=== PATIENT | female | born 1950 | race Hispanic/Latino ===

== ENCOUNTER 2018-03-19 19:15 | Inpatient (IN) | payer OTHER ==
--- OUTSIDE RECORDS SUMMARY | 2018-03-19 19:17 | XMS REPORT ---
:1950 Author Organization e[employer]Works Care Team Providers Name Role Phone Pacheco, Na Provider Role Unavailable Allergies, Adverse Reactions, Alerts Substance Reaction Event Type N.K.D.A. 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 Active with diabetes mellitus due to underlying condition Problem Coronary artery disease I25.9 Active Problem Microcytic anemia D50.9 Active Problem Hypertension I10 Active Assessment Acquired hypothyroidism E03.9 Active Problem Obesity E66.9 Active Problem Hyperlipidemia E78.5 Active Problem Acquired hypothyroidism E03.9 Active Problem Other chronic pain G89.29 Active Problem GERD (gastroesophageal reflux K21.9 Active disease) Problem Low back pain M54.5 Active Assessment Controlled type 2 diabetes mellitus E11.9 Active without complication, without long-term current use of insulin Assessment Coronary artery disease I25.9 Active Assessment Other chronic pain G89.29 Active Assessment Low back pain M54.5 Active Assessment Hyperlipidemia E78.5 Active Assessment Hypertension I10 Active Assessment 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 Active with type 2 diabetes mellitus Problem Controlled type 2 diabetes mellitus E11.9 Active without complication, without long-term current use of insulin Assessment Microcytic anemia D50.9 Active Problem 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 Active with type 2 diabetes mellitus Medications Medication Code Code Instructions Start End Status Dosage System Date Date Lipitor ND 41455470228 40 MG Orally Active 1 tablet Once a day Metoprolol ND 95864502131 100 MG Orally Active 1 tablet Succinate ER Once a day Lyrica ND 07301129119 50 MG Orally Active 1 capsule Twice a day Metformin HCl ND 61537462903 500 MG Orally Active 1 tablet Twice a day with meals Synthroid ND 04714656636 112 MCG Orally December Active 1 tablet on Once a day 2017 an empty stomach in the morning Nexium ND 42229853154 40 MG Active TAKE ONE CAPSULE BY MOUTH EVERY DAY Losartan ND 39445968677 50 MG Orally December Active 1 tablet Potassium Once a day 2017 Aspir-81 [facility] 67966966198 81 MG Orally Active 1 tablet Once a day Prasugrel HCl [facility] 30111872796 10 MG Orally December Active as directed 2017 Results Name Result Date Reference Range Unit Abnormality Flag LUF- XR LUMBAR SPINE (AP/LATERAL) Summary Purpose eClinicalWorks Submission
[2018-03-19] MEDS ORDERED: NA CHLORIDE 0.9% 1,000 ML ONE (20:48)
[2018-03-19 21:00] LABS: Absolute Lymphocytes (CBC) 1.5 K/uL (0.7-4.9); Absolute Monocytes 0.3 K/uL (0.1-1.3); Absolute Neutrophil 3.1 K/uL (1.8-8.0); Basophils % 0.4 % (0-1.3); Eosinophils % 1.5 % (0-4.4); Hematocrit 23.6 % (36.0-45.0); Lymphocytes % 29.4 % (15.3-44.8); MCH 22.4 pg (27.0-35.0); MCV 72.6 fL (80-100); MPV 8.4 fL (7.6-11.3); Monocytes % 6.9 % (3.3-12.3); RBC Red Blood Cell Count 3.25 M/uL (3.86-4.86)
[2018-03-19 21:10] LABS: BUN Blood Urea Nitrogen 15 mg/dL (6-20); Bicarbonate 32 mEq/L (21-31); Glucose Level 120 mg/dL (65-120); Potassium 3.7 mEq/L (3.6-5.0); Sodium Level 139 mEq/L (135-145)
--- NOTE | 2018-03-19 21:44 | ER ---
Nurse's Notes [facility] Name: Virginia Saucedo Age: 67 yrs Sex: Female : 1950 Arrival Date: 03/19/2018 Time: 19:44 Bed 19 Private MD: Diagnosis: Iron deficiency anemia secondary to blood loss (chronic) Presentation: 03/19 19:45 Presenting complaint: Patient states: Was instructed to come to ER to be evaluated for aj possible transfusion after HGB was 7.5 today. Reports 2 month history of black tarry stools. Transition of care: patient was not received from another setting of care. Onset of symptoms was January 2018. Risk Assessment: Do you want to hurt yourself or someone else? Patient reports no desire to harm self or others. Care prior to arrival: None. 19:45 Method Of Arrival: Ambulatory aj 19:45 Acuity: ANUSHA 4 aj 20:14 Initial Sepsis Screen: Does the patient meet any 2 criteria? No. Patient's initial jd3 sepsis screen is negative. Does the patient have a suspected source of infection? No. Patient's initial sepsis screen is negative. Triage Assessment: 19:51 General: Appears in no apparent distress. comfortable, Behavior is calm, cooperative, aj appropriate for age. Pain: Denies pain. Neuro: Level of Consciousness is awake, alert, obeys commands, Oriented to person, place, time, situation, Appropriate for age. Respiratory: Airway is patent Respiratory effort is even, unlabored, Respiratory pattern is regular, symmetrical. GI: Reports bloody stool. Derm: Skin is intact, is healthy with good turgor, Skin is pink, warm \T\ dry. normal. Historical: - Allergies: 19:51 No Known Allergies; aj - Home Meds: 19:51 aspirin 81 mg Oral chew 1 tab once daily [Active]; atorvastatin 40 mg Oral tab 1 tab aj once daily [Active]; Celebrex 200 mg Oral cap 1 cap once daily [Active]; Cozaar 50 mg Oral tab 1 tab once daily [Active]; metformin 500 mg Oral tr24 2 tabs once daily [Active]; metoprolol tartrate 100 mg Oral tab 1 tab once daily [Active]; Nexium 40 mg Oral cpDR 1 cap once daily [Active]; Synthroid 112 mcg Oral tab 1 tab once daily [Active]; prasugrel oral oral [Active]; - PMHx: 19:51 Diabetes - NIDDM; GERD; High Cholesterol; Hypertension; THYROID CANCER; joint pain; aj - PSHx: 19:51 Cholecystectomy; ; Thyroidectomy; Heart stents; aj - Immunization history:: Adult Immunizations up to date. - Social history:: Smoking status: Patient/guardian denies using tobacco. - Ebola Screening: : Patient negative for fever greater than or equal to 101.5 degrees Fahrenheit, and additional compatible Ebola Virus Disease symptoms Patient denies exposure to infectious person Patient denies travel to an Ebola-affected area in the 21 days before illness onset No symptoms or risks identified at this time. Screenin:14 Abuse screen: Denies threats or abuse. Nutritional screening: No deficits noted. jd3 Tuberculosis screening: No symptoms or risk factors identified. Fall Risk No fall in past 12 months (0 pts). Gait- Normal/Bed Rest/Wheelchair (0 pts) Mental Status- Oriented to own ability (0 pts). Total Machado Fall Scale indicates No Risk (0-24 pts). Assessment: 20:10 General: Appears in no apparent distress. comfortable, Behavior is calm, cooperative, jd3 appropriate for age. Pain: Complains of pain in left upper quadrant Pain currently is 2 out of 10 on a pain scale. Quality of pain is described as tender, Is continuous, chronic. Neuro: Level of Consciousness is awake, alert, obeys commands, Oriented to person, place, time, situation. Cardiovascular: Heart tones S1 S2 present Capillary refill < 3 seconds Patient's skin is warm and dry. Respiratory: Airway is patent Respiratory effort is even, unlabored, Respiratory pattern is regular, symmetrical, Breath sounds are clear bilaterally. GI: Abdomen is round Bowel sounds present X 4 quads. Abd is soft X 4 quads Abd is non tender in right upper quadrant, right lower quadrant and left lower quadrant Abdomen is tender to palpation in left upper quadrant Reports constipation, dark black, sticky stools. : No signs and/or symptoms were reported regarding the genitourinary system. EENT: No signs and/or symptoms were reported regarding the EENT system. Derm: Skin is intact, Skin is dry, Skin is normal, Skin temperature is warm. Musculoskeletal: Circulation, motion, and sensation intact. Range of motion: intact in all extremities. 20:57 Reassessment: Patient appears in no apparent distress at this time. No changes from jd3 previously documented assessment. Patient and/or family updated on plan of care and expected duration. Pain level reassessed. Patient is alert, oriented x 3, equal unlabored respirations, skin warm/dry/pink. 22:39 Reassessment: Patient appears in no apparent distress at this time. Patient and/or jd3 family updated on plan of care and expected duration. Pain level reassessed. Patient is alert, oriented x 3, equal unlabored respirations, skin warm/dry/pink. 23:30 Reassessment: Patient appears in no apparent distress at this time. Patient and/or jd3 family updated on plan of care and expected duration. Pain level reassessed. Patient is alert, oriented x 3, equal unlabored respirations, skin warm/dry/pink. 03/20 00:09 Reassessment: Patient appears in no apparent distress at this time. Patient and/or jd3 family updated on plan of care and expected duration. Pain level reassessed. Patient is alert, oriented x 3, equal unlabored respirations, skin warm/dry/pink. pt reported understanding of need for admission. Vital Signs: 03/19 19:51 BP 134 / 80; Pulse 107; Resp 20; Temp 97.6; Pulse Ox 99% on R/A; Weight 81.65 kg; aj Height 5 ft. 0 in. (152.40 cm); 20:15 BP 116 / 72; Pulse 95; Resp 17 S; Pulse Ox 99% on R/A; Pain 2/10; jd3 20:56 BP 109 / 57; Pulse 96; Resp 18 S; Pulse Ox 98% on R/A; jd3 22:38 BP 118 / 72; Pulse 88; Resp 16 S; Pulse Ox 97% on R/A; jd3 03/20 00:09 BP 107 / 61; Pulse 89; Resp 16 S; Pulse Ox 97% on R/A; Pain 0/10; jd3 03/19 19:51 Body Mass Index 35.15 (81.65 kg, 152.40 cm) aj ED Course: 03/19 19:44 Patient arrived in ED. aj 19:50 Triage completed. aj 19:51 Arm band placed on left wrist. Patient placed in waiting room, Patient notified of wait aj time. 20:02 Edilson Vela, RN is Primary Nurse. jd3 20:10 Tito Hewitt MD is Attending Physician. 20:13 Patient has correct armband on for positive identification. Placed in gown. Bed in low jd3 position. Call light in reach. Side rails up X2. Adult w/ patient. 20:25 Missed attempt(s): 22 gauge in left forearm. Bleeding controlled, band aid applied, jd3 catheter tip intact. 20:35 Inserted saline lock: 22 gauge in right antecubital area, using aseptic technique. jd3 Blood collected. 21:43 Bakari Duong MD is Hospitalizing Provider. 03/20 00:03 No provider procedures requiring assistance completed. Patient admitted, IV remains in jd3 place. Administered Medications: 03/19 20:51 Drug: NS 0.9% 1000 ml Route: IV; Rate: 125 ml/hr; Site: right antecubital; jd3 03/20 00:10 Follow up: Response: No adverse reaction; IV Status: Infusion continued upon admission jd3 Outcome: 03/19 21:43 Decision to Hospitalize by Provider. 03/20 00:03 Admitted to Tele accompanied by tech, room 412, with chart, Report called to Rosetta SANTANA jd3 Condition: stable Instructed on the need for admit, Demonstrated understanding of instructions. 00:11 Patient left the ED. jd3 Signatures: Meagan Mckeon RN RN aj Starr, Gregory, MD MD Edilson Vela RN RN jd3 Corrections: (The following items were deleted from the chart) 03/19 20:16 20:10 Pain: Complains of pain in left upper quadrant Pain currently is 3 out of 10 on a jd3 pain scale. Quality of pain is described as tender, Is continuous, chronic, jd3
--- NOTE | 2018-03-19 21:44 | EDPHYS ---
Physician Documentation [facility] Name: Virginia Saucedo Age: 67 yrs Sex: Female : 1950 Arrival Date: 03/19/2018 Time: 19:44 Bed 19 Private MD: ED Physician Tito Hewitt HPI: 03/19 21:33 This 67 yrs old Female presents to ER via Ambulatory with complaints of Low gs HGB. 21:33 The patient presents to the emergency department with rectal bleeding, melena. Onset: gs The symptoms/episode began/occurred 2 week(s) ago. Abdominal pain: none is appreciated. Modifying factors: The symptoms are alleviated by nothing, the symptoms are aggravated by nothing. Associated signs and symptoms: Pertinent positives: dizziness when standing, Pertinent negatives: constipation. Severity of symptoms: At their worst the symptoms were moderate in the emergency department the symptoms are unchanged. The patient has not experienced similar symptoms in the past. The patient has been recently seen by a physician: Dr. ruvalcaba today. Historical: - Allergies: 19:51 No Known Allergies; aj - Home Meds: 19:51 aspirin 81 mg Oral chew 1 tab once daily [Active]; atorvastatin 40 mg Oral tab 1 tab aj once daily [Active]; Celebrex 200 mg Oral cap 1 cap once daily [Active]; Cozaar 50 mg Oral tab 1 tab once daily [Active]; metformin 500 mg Oral tr24 2 tabs once daily [Active]; metoprolol tartrate 100 mg Oral tab 1 tab once daily [Active]; Nexium 40 mg Oral cpDR 1 cap once daily [Active]; Synthroid 112 mcg Oral tab 1 tab once daily [Active]; prasugrel oral oral [Active]; - PMHx: 19:51 Diabetes - NIDDM; GERD; High Cholesterol; Hypertension; THYROID CANCER; joint pain; aj - PSHx: 19:51 Cholecystectomy; ; Thyroidectomy; Heart stents; aj - Immunization history:: Adult Immunizations up to date. - Social history:: Smoking status: Patient/guardian denies using tobacco. - Ebola Screening: : Patient negative for fever greater than or equal to 101.5 degrees Fahrenheit, and additional compatible Ebola Virus Disease symptoms Patient denies exposure to infectious person Patient denies travel to an Ebola-affected area in the 21 days before illness onset No symptoms or risks identified at this time. ROS: 21:39 All other systems are negative. gs Exam: 21:39 Head/Face: Normocephalic, atraumatic. Eyes: Pupils equal round and reactive to light, gs extra-ocular motions intact. Lids and lashes normal. Conjunctiva and sclera are non-icteric and not injected. Cornea within normal limits. Periorbital areas with no swelling, redness, or edema. ENT: Nares patent. No nasal discharge, no septal abnormalities noted. Tympanic membranes are normal and external auditory canals are clear. Oropharynx with no redness, swelling, or masses, exudates, or evidence of obstruction, uvula midline. Mucous membranes moist. Neck: Trachea midline, no thyromegaly or masses palpated, and no cervical lymphadenopathy. Supple, full range of motion without nuchal rigidity, or vertebral point tenderness. No Meningismus. Chest/axilla: Normal chest wall appearance and motion. Nontender with no deformity. No lesions are appreciated. Cardiovascular: Regular rate and rhythm with a normal S1 and S2. No gallops, murmurs, or rubs. Normal PMI, no JVD. No pulse deficits. Respiratory: Lungs have equal breath sounds bilaterally, clear to auscultation and percussion. No rales, rhonchi or wheezes noted. No increased work of breathing, no retractions or nasal flaring. Back: No spinal tenderness. No costovertebral tenderness. Full range of motion. Skin: Warm, dry with normal turgor. Normal color with no rashes, no lesions, and no evidence of cellulitis. MS/ Extremity: Pulses equal, no cyanosis. Neurovascular intact. Full, normal range of motion. Neuro: Awake and alert, GCS 15, oriented to person, place, time, and situation. Cranial nerves II-XII grossly intact. Motor strength 5/5 in all extremities. Sensory grossly intact. Cerebellar exam normal. Normal gait. 21:39 Constitutional: The patient appears alert, awake. 21:39 Abdomen/GI: Palpation: abdomen is soft and non-tender, Rectal exam: Stool: brown, guaiac positive, the exam is chaperoned by an business services tech. Vital Signs: 19:51 BP 134 / 80; Pulse 107; Resp 20; Temp 97.6; Pulse Ox 99% on R/A; Weight 81.65 kg; aj Height 5 ft. 0 in. (152.40 cm); 20:15 BP 116 / 72; Pulse 95; Resp 17 S; Pulse Ox 99% on R/A; Pain 2/10; jd3 20:56 BP 109 / 57; Pulse 96; Resp 18 S; Pulse Ox 98% on R/A; jd3 22:38 BP 118 / 72; Pulse 88; Resp 16 S; Pulse Ox 97% on R/A; jd3 03/20 00:09 BP 107 / 61; Pulse 89; Resp 16 S; Pulse Ox 97% on R/A; Pain 0/10; jd3 03/19 19:51 Body Mass Index 35.15 (81.65 kg, 152.40 cm) aj MDM: 03/19 20:18 Patient medically screened. 21:39 Differential diagnosis: gastritis, hemorrhoids, pud. Data reviewed: vital signs, nurses notes. Response to treatment: the patient's symptoms have mildly improved after treatment, and as a result, I will admit patient. 03/19 20:13 Order name: Type And Screen 03/19 20:13 Order name: CBC with Diff 03/19 20:13 Order name: Basic Metabolic Panel 03/19 21:51 Order name: ABO/RH no charge EDWV 03/19 20:15 Order name: IV Saline Lock; Complete Time: 20:51 [facility] 03/19 22:18 Order name: CONS Physician Consult EDMS Administered Medications: 20:51 Drug: NS 0.9% 1000 ml Route: IV; Rate: 125 ml/hr; Site: right antecubital; j 03/20 00:10 Follow up: Response: No adverse reaction; IV Status: Infusion continued upon admission j Disposition: 03/19/18 21:43 Hospitalization ordered by Bakari Duong for Inpatient Admission. Preliminary diagnosis is Iron deficiency anemia secondary to blood loss (chronic). - Bed requested for Telemetry/MedSurg (Inpatient). - Status is Inpatient Admission. jd3 - Condition is Stable. - Problem is new. - Symptoms have improved. UTI on Admission? No Signatures: Dispatcher [employer] EDMS Cintia Saleh RN RN kl Myers, Amanda, RN RN aj Starr, Gregory, MD MD gs Davies, Jonathon, RN RN j Corrections: (The following items were deleted from the chart) 03/19 20:26 20:23 Protime (+INR) ordered. EDWV EDMS 23:34 21:43 Hospitalization Ordered by Bakari Duong MD for Inpatient Admission. Preliminary kl diagnosis is Iron deficiency anemia secondary to blood loss (chronic). Bed requested for Telemetry/MedSurg (Inpatient). Status is Inpatient Admission. Condition is Stable. Problem is new. Symptoms have improved. UTI on Admission? No. gs 03/20 00:11 03/19 23:34 03/19/2018 21:43 Hospitalization Ordered by Bakari Duong MD for Inpatient jd3 Admission. Preliminary diagnosis is Iron deficiency anemia secondary to blood loss (chronic). Bed requested for Telemetry/MedSurg (Inpatient). Status is Inpatient Admission. Condition is Stable. Problem is new. Symptoms have improved. UTI on Admission? No. kl
[2018-03-19] MEDS ORDERED: ACETAMINOPHEN 500 MG TAB PO PRN (23:15)
[2018-03-19] MEDS ORDERED: Morphine 2 MG/2 ML SYR IV PRN (23:31)
[2018-03-19] MEDS: PANTOPRAZOLE INJ 80 MG in NA CHLORIDE 0.9% 250 ML IV SCH (23:45)
[2018-03-19] MEDS ORDERED: NA CHLORIDE 0.9% 1,000 ML IV SCH (23:45)
[2018-03-20 01:06] LABS: Hematocrit 22.2 % (36.0-45.0)
[2018-03-20] MEDS ORDERED: NA CHLORIDE 0.9% 250 ML ONE ×2 (01:19→10:20)
[2018-03-20] MEDS ORDERED: PANTOPRAZOLE 40 MG INJ ONE (01:19)
[2018-03-20] MEDS: NA CHLORIDE 0.9% 250 ML IV SCH ×2 (02:31→18:24)
[2018-03-20 02:51] VITALS: BMI 35.6
[2018-03-20] MEDS: METOPROLOL XL 50 MG TAB PO SCH ×2 (06:00→18:24)
[2018-03-20] MEDS: LEVOTHYROXINE SOD 0.112 MG TAB PO SCH (06:00)
--- NOTE | 2018-03-20 07:14 | P.HP ---
Certification for Inpatient Patient admitted to: Inpatient With expected LOS: >2 Midnights Patient will require the following post-hospital care: None Practitioner: I am a practitioner with admitting privileges, knowledge of patient current condition, hospital course, and medical plan of care. Services: Services provided to patient in accordance with Admission requirements found in Title 42 Section 412.3 of the Code of Federal Regulations Patient History Date of Service: 03/19/18 Reason for admission: GI bleeding History of Present Illness: Patient is a 67-year-old female who came into the hospital with epigastric tenderness and generalized weakness. Patient also has been fatigued and short of breath. Patient was recently diagnosed with acute Coronary Syndrome and had a stent placed. Patient was discharged on effient a few months ago. Patient had been doing well up until a few days ago when she noted she was feeling weak and tired. She was more short of breath than normal. Patient did have some nausea and vomiting and had a episode of coffee-ground emesis. Pain has also has some dark stools but does not describe them as black or tarry. 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 However, on the effient it was concerned that patient would not be able to stop it as she recently had a stent placed. During her appointment patient had labs ordered which revealed her low hemoglobin. Patient was admitted to the hospital and plan is to recheck a H&H after hydration. Patient may need a blood transfusion. Will get GI to see the patient as well. Continue on a Protonix drip as patient has some coffee-ground emesis. Allergies No Known Allergies Allergy (Verified 03/20/18 03:13) Home Medications: Aspirin Chewable [Aspirin Chewable*] 81 mg PO DAILY 03/20/18 Atorvastatin Calcium [Lipitor] 40 mg PO BEDTIME 03/20/18 Esomeprazole Mag Trihydrate [Nexium] 40 mg PO DAILY 03/20/18 Levothyroxine [Synthroid] 112 mcg PO [id number] 03/20/18 Losartan Potassium [Cozaar] 50 mg PO DAILY 03/20/18 Metformin HCl [Glucophage] 500 mg PO BID 03/20/18 Metoprolol Succinate [Toprol Xl] 100 mg PO BID 03/20/18 Prasugrel Hydrochloride [Effient] 10 mg PO DAILY 03/20/18 - Past Medical/Surgical History Has patient received pneumonia vaccine in the past: Yes Diabetic: Yes -: HTN -: DM -: THYROID CA -: GERD -: HLD -: csection -: thyroidectomy -: cholecystectomy - Family History Father Medical History: Hypertension Mother Medical History: Hypertension Brother Medical History: Hypertension - Social History Smoking Status: Former smoker Alcohol use: No CD- Drugs: No Caffeine use: Yes Place of Residence: Home Review of Systems 10-point ROS is otherwise unremarkable Physical Examination - Vital Signs Temperature: 98.3 F Blood Pressure: 113/67 Pulse: 96 Respirations: 18 Pulse Ox (%): 100 - Physical Exam General: Alert, In no apparent distress, Oriented x3 HEENT: Atraumatic, PERRLA, Mucous membr. moist/pink, EOMI, Sclerae nonicteric Neck: Supple, 2+ carotid pulse no bruit, No LAD, Without JVD or thyroid abnormality Respiratory: Clear to auscultation bilaterally, Normal air movement Cardiovascular: Regular rate/rhythm, Normal S1 S2, No murmurs Gastrointestinal: Normal bowel sounds, Soft and benign, Non-distended, No tenderness, No rebound, No guarding Musculoskeletal: No clubbing, No swelling, No tenderness Integumentary: No rashes Neurological: Normal gait, Normal speech, Normal strength at 5/5 x4 extr, Normal tone, Normal affect Lymphatics: No axilla or inguinal lymphadenopathy - Studies Laboratory Data (last 24 hrs) 03/19/18 20:35: Sodium 139, Potassium 3.7, BUN 15, Creatinine 0.33 L, Glucose 120 03/19/18 20:35: WBC 5.0, Hgb 7.3 L*, Hct 23.6 L, Plt Count 267 03/19/18 20:22: PT Cancelled, INR Cancelled Assessment & Plan - Problems (Diagnosis) (1) Presence of stent in coronary artery in patient with coronary artery disease Current Visit: Yes Status: Acute (2) Gastritis Current Visit: Yes Status: Acute (3) CAD (coronary artery disease) Onset Date: 09/20/17 Current Visit: No Status: Chronic Qualifiers: - Plan Plan: 1. Continue with IV hydration and PPI drip 2. Continue with IV antibiotics 3. Continue with pain control 4. NPO 5. GI consultation 6. Serial H&H, and we will monitor LFTs and lipase along with electrolytes. 7. GI and DVT prophylaxis Discharge Plan: Home Plan to discharge in: 24 Hours - Advance Directives Does patient have a Living Will: Yes Does patient have a Durable POA for Healthcare: Yes - Code Status/Comfort Care Code Status Assessed: Yes Code Status: Full Code Critical Care: No Time Spent Managing PTS Care (In Minutes): 50
[2018-03-20 08:06] LABS: Absolute Lymphocytes (CBC) 1.1 K/uL (0.7-4.9); Absolute Monocytes 0.3 K/uL (0.1-1.3); Absolute Neutrophil 2.9 K/uL (1.8-8.0); Basophils % 0.5 % (0-1.3); Eosinophils % 1.6 % (0-4.4); Hematocrit 24.9 % (36.0-45.0); Lymphocytes % 24.7 % (15.3-44.8); MCH 23.7 pg (27.0-35.0); MCV 74.2 fL (80-100); MPV 8.2 fL (7.6-11.3); Monocytes % 6.5 % (3.3-12.3); RBC Red Blood Cell Count 3.36 M/uL (3.86-4.86)
[2018-03-20 08:25] LABS: Protime INR 1.03
[2018-03-20] MEDS: PREGABALIN 50 MG CAP PO SCH (08:28)
[2018-03-20 09:21] LABS: BUN Blood Urea Nitrogen 14 mg/dL (6-20); Bicarbonate 30 mEq/L (21-31); Glucose Level 100 mg/dL (65-120); Potassium 3.8 mEq/L (3.6-5.0); Sodium Level 141 mEq/L (135-145)
[2018-03-20] MEDS: PANTOPRAZOLE INJ 80 MG in NA CHLORIDE 0.9% 250 ML IV SCH ×2 (09:45→20:43)
--- NOTE | 2018-03-20 12:19 | CON ---
History Of Present Illness: Ms. Saucedo for about a month has been noticing her stools turned to darker color. She has been on Nexium chronically. She has also been on aspirin and Plavix. In the fall of 2016, she had an LAD stent. Aspirin and Effient have been stopped, but her last dose was just yesterday. She is aware there was blood in her stools, went to see Dr. Mensah, ended up in our emergency room. Her hemoglobin was 7.3. It got as low as 6.7 this morning and following transfusion, it is back up to 8. Ms. Saucedo has a history of coronary heart disease, hypertension, dyslipidemia, [id number] diabetes. She has had several stents with the last one was in September 2017. Allergies: SHE REPORTS NO ALLERGIES. Social History: She uses no tobacco or alcohol. Physical Examination: General: She is alert, oriented, pleasant, not in distress. Vital Signs: Blood pressure 113/67, pulse 96, temperature 98.3, O2 saturation 100. Impression: The patient is now 6 months out from a drug-eluting stent. She can stop the Effient and aspirin safely, have transfusions and have procedures to see what the bleeding source is. It is very alarming if she has bleeding from stomach or duodenum while she is on Nexium. She has had colonoscopies, but the last one was a year and a half ago. So, she will probably need a complete upper and lower GI workup to see the source, but the source is somewhere in the GI tract. No other apparent source of bleeding. She does not seem to have bone marrow failure, but this is blood loss from GI bleeding. We can safely stop the dual antiplatelet therapy while the GI workup continues. DELORIS Voice ID: [id number] Report ID: [id number] HILARIO
--- NOTE | 2018-03-20 14:08 | P.PN ---
Subjective Date of Service: 03/20/18 Chief Complaint: GI bleeding She is patient seen and examined at bedside with RN. Chart reviewed. Discussed with GI and cardiology at this time. Patient is getting transfused 2 units of packed RBC. Currently states that she feels much better than before however is getting anxious laying in bed for a long time. No other complaints to offer. Review of Systems General: As per HPI Physical Examination - Vital Signs Temperature: 98.3 F Blood Pressure: 113/67 Pulse: 96 Respirations: 18 Pulse Ox (%): 100 - Physical Exam General: Alert, In no apparent distress HEENT: Atraumatic, PERRLA, EOMI Neck: Supple, JVD not distended Respiratory: Clear to auscultation bilaterally, Normal air movement Cardiovascular: Regular rate/rhythm, Normal S1 S2 Gastrointestinal: Normal bowel sounds, No tenderness Musculoskeletal: No tenderness Integumentary: No rashes Neurological: Normal speech, Normal tone, Normal affect Lymphatics: No axilla or inguinal lymphadenopathy - Studies Laboratory Data (last 24 hrs) 03/19/18 20:35: Sodium 139, Potassium 3.7, BUN 15, Creatinine 0.33 L, Glucose 120 03/19/18 20:35: WBC 5.0, Hgb 7.3 L*, Hct 23.6 L, Plt Count 267 03/19/18 20:22: PT Cancelled, INR Cancelled Medications List Reviewed: Yes Assessment & Plan - Problems (Diagnosis) (1) GI (gastrointestinal bleed) Current Visit: No Status: Acute Plan: Acute GI bleed with Hgb of 6.8 -S/p transfusion of 2 units. -GI consulted. Awaiting Reccs -Stop Effient and ASA due to GI bleed -IV fluids and H/h q6h -Possible EGD or Colonoscopy during this hospital visit Qualifiers: GI bleed type/associated pathology: melena Qualified Code(s): K92.1 - Melena (2) CAD (coronary artery disease) Onset Date: 09/20/17 Current Visit: No Status: Chronic Plan: CAD with Stent Placement 6 months ago -Cardiology consulted. -Stop Effient and ASA for now Qualifiers: Coronary Disease-Associated Artery/Lesion type: [place] artery [place] vs. transplanted heart: [place] heart Associated angina: with stable angina Qualified Code(s): I25.118 - Atherosclerotic heart disease of [place] coronary artery with other forms of angina pectoris Discharge Plan: Home Plan to discharge in: 48 Hours - Code Status/Comfort Care Code Status Assessed: Yes Critical Care: No
[2018-03-20] MEDS ORDERED: ATORVASTATIN 40 MG TAB PO SCH (21:00)
[2018-03-21] MEDS: PANTOPRAZOLE INJ 80 MG in NA CHLORIDE 0.9% 250 ML IV SCH (05:45)
[2018-03-21] MEDS: LEVOTHYROXINE SOD 0.112 MG TAB PO SCH (05:47)
[2018-03-21] MEDS: METOPROLOL XL 50 MG TAB PO SCH (05:47)
[2018-03-21] MEDS: PREGABALIN 50 MG CAP PO SCH (09:00)
[2018-03-21] MEDS ORDERED: SIMETHICONE 40 MG/ 0.6 ML ONE (09:09)
[2018-03-21] MEDS ORDERED: NA CHLORIDE 0.9% 1,000 ML ONE (09:10)
[2018-03-21] MEDS ORDERED: LIDOCAINE 1% MPF 5 ML VIAL ONE (09:28)
[2018-03-21] MEDS ORDERED: PROPOFOL 200 MG/20 ML VIAL IV ONE (09:28)
[2018-03-21] MEDS ORDERED: PANTOPRAZOLE 40MG TABLET PO SCH (10:39)
--- NOTE | 2018-03-21 11:58 | OP ---
Surgeon: Adarsh Garcia MD Procedure: Esophagogastroduodenoscopy. Indication For Procedure: Suspected upper GI bleed, anemia. For full details, please refer to my co nsultation from yesterday. Plan For Anesthesia: Monitored anesthesia care. Complexity: Average. Technique: After obtaining informed consent from the patient explaining risks and complications whic h include, but are not limited to bleeding, infection, perforation, and anesthesia complication, the patient was placed in the left lateral position and sedation was given. From then on, the scope was advanced into the mouth and carefully guided up till the fourth portion of the duodenum. There was n o evidence of active bleeding seen; however, some small AVMs were treated. After the completion of e xamination, the scope and equipment were withdrawn and procedure terminated in a safe manner. Findings: Esophagus: No gross lesion seen in the entire esophagus. Stomach: Mild patchy erythema seen in the body and antrum. Biopsies taken. Duodenum: The bulb appeared normal; however, there were 2 very small nonbleeding angiodysplasias see n in the second portion. These were ablated with APC. The second and fourth portion appeared normal . Small bowel biopsies were taken to rule out celiac disease. Complications: None. Tolerance Of Anesthesia: Excellent. Postoperative Diagnosis: Gastritis, small duodenal AVMs. Plan: 1.Await pathology results. 2.Oral PPI daily. 3.Follow up in the GI Clinic. 4.Can resume Plavix for now. As per Dr. Coon, the patient is okay to hold Plavix for a longer dur ation if colonoscopy is needed. Therefore, we can hold that 5 days before the procedure when we sche dule a colonoscopy in the next couple of weeks. She will come back and see us in the clinic. US/MODL Voice ID: [id number] Report ID: [id number]
--- NOTE | 2018-03-21 15:53 | P.DS ---
Admission Date: 03/19/18 Discharge Date: 03/21/18 Disposition: ROUTINE DISCHARGE Discharge Condition: GOOD Reason for Admission: GI bleeding Brief History of Present Illness: By Dr Duong Patient is a 67-year-old female who came into the hospital with epigastric tenderness and generalized weakness. Patient also has been fatigued and short of breath. Patient was recently diagnosed with acute Coronary Syndrome and had a stent placed. Patient was discharged on effient a few months ago. Patient had been doing well up until a few days ago when she noted she was feeling weak and tired. She was more short of breath than normal. Patient did have some nausea and vomiting and had a episode of coffee-ground emesis. Pain has also has some dark stools but does not describe them as black or tarry. Patient went to see her kelp gatherer as she was due for a colonoscopy. However, on the effient it was concerned that patient would not be able to stop it as she recently had a stent placed. During her appointment patient had labs ordered which revealed her low hemoglobin. Patient was admitted to the hospital and plan is to recheck a H&H after hydration. Patient may need a blood transfusion. Will get GI to see the patient as well. Continue on a Protonix drip as patient has some coffee-ground emesis. Hospital Course: Ms Saucedo was admitted to the hospital due to anemia secondary to blood loss due to GIB. She was medicated with ASA and Prasugrel, due to CAD, with stent placement about 6 month ago. She has received 2 UNITS of PRBC's during her stay. The patient was tachycardic initially but HR decreased after blood transfusion. ASA and Prasugrel were held. Dr Garcia did an EGD today, he found gastritis and small duodenal AVMs. Further colonoscopy is pending. Dr Garcia has recommended to continue antiplatelet medication upon discharge, and he will hold them again 5 days prior colonoscopy. At this point the patient is clinically and hemodynamically stable to be discharged. Will resume PPI and the rest of her home medications. Vital Signs/Physical Exam: Temp Pulse Resp BP Pulse Ox 97.9 F 68 16 131/66 98 03/21/18 12:00 03/21/18 12:00 03/21/18 12:00 03/21/18 12:00 03/21/18 12:00 General: Alert, In no apparent distress HEENT: Atraumatic, PERRLA, EOMI Neck: Supple, JVD not distended Respiratory: Clear to auscultation bilaterally, Normal air movement Cardiovascular: Regular rate/rhythm, Normal S1 S2 Gastrointestinal: Normal bowel sounds, No tenderness Musculoskeletal: No tenderness Integumentary: No rashes Neurological: Normal speech, Normal tone, Normal affect Lymphatics: No axilla or inguinal lymphadenopathy Laboratory Data at Discharge: WBC 4.3 K/uL (4.3-10.9) 03/20/18 07:55 Hgb 9.5 g/dL (12.0-15.0) L 03/20/18 16:06 Hct 30.0 % (36.0-45.0) L D 03/20/18 16:06 Plt Count 242 K/uL (152-406) 03/20/18 07:55 PT 12.2 SECONDS (9.5-12.5) 03/20/18 07:55 INR 1.03 03/20/18 07:55 APTT 29.2 SECONDS (24.3-36.9) 03/20/18 07:55 Sodium 141 mEq/L (135-145) 03/20/18 07:55 Potassium 3.8 mEq/L (3.6-5.0) 03/20/18 07:55 BUN 14 mg/dL (6-20) 03/20/18 07:55 Creatinine < 0.30 mg/dL (0.44-1.00) L 03/20/18 07:55 Glucose 100 mg/dL (65-120) 03/20/18 07:55 Home Medications: Aspirin Chewable [Aspirin Chewable*] 81 mg PO DAILY 03/20/18 Atorvastatin Calcium [Lipitor] 40 mg PO BEDTIME 03/20/18 Esomeprazole Mag Trihydrate [Nexium] 40 mg PO DAILY 03/20/18 Levothyroxine [Synthroid*] 112 mcg PO [id number] 03/20/18 Losartan Potassium [Cozaar*] 50 mg PO DAILY 03/20/18 Metformin HCl [Glucophage] 500 mg PO BID 03/20/18 Metoprolol Succinate [Toprol Xl] 100 mg PO BID 03/20/18 Prasugrel Hydrochloride [Effient*] 10 mg PO DAILY 03/20/18 Diet: AHA Activity: Ad porfirio Followup: Adarsh Garcia MD [ACTIVE - CAN ADMIT] - 1 Week Time spent managing pt's care (in minutes): 40
[2018-03-21 16:24] VITALS: BP 101/56; TEMP 98.6
[2018-03-21 20:21] VITALS: O2SAT 98
== END 2018-03-21 16:53 | disposition home or self-care (01) | DRG 378 ==
LOC: ER 19:15 → ERHOLD 22:17 → 4TH 23:37
PROVIDERS: ADMIT Hospitalist; ATTEND Internal Medicine
PROC: 30233N1 Transfusion of Nonautologous Red Blood Cells into Peripheral Vein, Percutaneous Approach (ICD-10-PCS; 2018-03-20)
PROC: 0W3P8ZZ Control Bleeding in Gastrointestinal Tract, Via Natural or Artificial Opening Endoscopic (ICD-10-PCS; 2018-03-21)
PROC: 0DB68ZX Excision of Stomach, Via Natural or Artificial Opening Endoscopic, Diagnostic (ICD-10-PCS; principal; 2018-03-21 11:30)
DX: K92.1 Melena (principal); D62 Acute posthemorrhagic anemia; I10 Essential (primary) hypertension; E11.9 Type 2 diabetes mellitus without complications; I25.10 Atherosclerotic heart disease of native coronary artery without angina pectoris; K29.70 Gastritis, unspecified, without bleeding; Q27.33 Arteriovenous malformation of digestive system vessel; K31.819 Angiodysplasia of stomach and duodenum without bleeding; Z85.850 Personal history of malignant neoplasm of thyroid; Z95.5 Presence of coronary angioplasty implant and graft; Z87.891 Personal history of nicotine dependence
CPT/HCPCS: 36415; 80048; 85014; 85018; 85025; 85610; 85730; 86850; 86900; 86901; 88305; 88312; 96360; 96361; 99285; C9113; J7030; P9016

== ENCOUNTER 2019-11-05 08:38 | Day surgery (SDC) | payer OTHER ==
[2019-11-03 17:40] LABS: Absolute Lymphocytes (CBC) 1.5 K/uL (0.7-4.9); Basophils % 0.4 % (0-1.3); Lymphocytes % 26.4 % (15.3-44.8); MPV 8.6 fL (7.6-11.3)
[2019-11-03 17:43] LABS: Protime INR 1.04
[2019-11-03 17:51] LABS: BUN Blood Urea Nitrogen 14 mg/dL (7-18); Bicarbonate 36 mmol/L (21-32); Glucose Level 161 mg/dL (74-106); Potassium 3.7 mmol/L (3.5-5.1); Sodium Level 145 mmol/L (136-145)
--- NOTE | 2019-11-03 17:56 | RAD REPORT ---
EXAM DESCRIPTION: Chad Cruz And Rylan (2 Views)11/03/2019 5:48 pm CLINICAL HISTORY: Preop for coronary arterial catheterization COMPARISON: 2017 FINDINGS: The patient is in a relatively poor degree of inspiration The lungs appear clear of acute infiltrate. The heart is normal size IMPRESSION: No acute abnormalities displayed
--- OUTSIDE RECORDS SUMMARY | 2019-11-05 08:41 | XMS REPORT ---
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, acquired with hemorrhage Problem Sebaceous cyst L72.3 Active Problem Bilateral lower extremity edema R60.0 Active Problem Stented coronary artery Z95.5 Active Problem Iron deficiency anemia, unspecified D50.9 Active iron deficiency anemia type Problem ACS (acute coronary syndrome) I24.9 Active Problem 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
--- OUTSIDE RECORDS SUMMARY | 2019-11-05 08:41 | XMS REPORT ---
:1950 Author Organization [employer] Care Team Providers Name Role Phone Pacheco, Na Provider Role Unavailable Allergies No Known Allergies Problems Problem Type Condition Code Onset Dates Condition Status Problem Microcytic anemia D50.9 Active Problem Other chronic pain G89.29 Active Problem Coronary artery disease I25.9 Active Problem Crohn''s disease with complication, K50.919 Active unspecified gastrointestinal tract location Assessment Needs flu shot Z23 Active Problem AVM (arteriovenous malformation) of K31.811 Active [...] underlying condition Problem Hyperlipidemia E78.5 Active Medications Medication Code Code Instructions Start End Status Dosage System Date [facility] 47174285657 81 MG Orally Active 1 tablet Once a day Esomeprazole [facility] 60923118029 40 MG Active TAKE 1 Magnesium CAPSULE BY MOUTH EVERY DAY Losartan [facility] 08031830854 50 MG Orally Active 1 tablet Potassium Once a day Metoprolol [facility] 17711624431 100 MG Orally Active 1 tablet Succinate ER Once a day Furosemide [facility] 83661851009 40 MG Orally Active 1 tablet Once a day Metformin HCl [facility] 70450920387 500 MG Orally Active 1 tablet Twice a day with meals Nexium [facility] 48542448970 40 MG Active TAKE ONE CAPSULE BY MOUTH EVERY DAY Furosemide [facility] 36640754756 40 MG Orally Active 1 tablet Once a day Lipitor [facility] 64311179495 40 MG Orally Active 1 tablet Once a day Synthroid [facility] 32735543587 112 MCG Orally Active 1 tablet Once a day on an empty stomach in the morning Results No Known Results Immunizations Vaccine Administration Date FluAD Jul 10, 2019 Summary Purpose [employer] Submission
--- OUTSIDE RECORDS SUMMARY | 2019-11-05 08:41 | XMS REPORT ---
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, acquired with hemorrhage Problem Hyperlipidemia E78.5 Active Assessment Acquired hypothyroidism E03.9 Active Problem Microcytic anemia D50.9 Active Problem Other chronic pain G89.29 Active Problem Coronary artery disease I25.9 Active Problem Crohn''s disease with complication, K50.919 Active unspecified gastrointestinal tract location Problem 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
[2019-11-05] MEDS ORDERED: NA CHLORIDE 0.9% 500 ML ONE (08:50)
[2019-11-05] MEDS ORDERED: MIDAZOLAM HCL 2 MG/2 ML INJ ONE ×3 (11:40→12:54)
[2019-11-05] MEDS ORDERED: METOPROLOL TARTRATE 5 MG/5 ML INJ IV ONE ×2 (12:05→12:11)
[2019-11-05] MEDS ORDERED: FENTANYL CITR 100 MCG/2 ML ONE ×2 (12:55→13:00)
[2019-11-05] MEDS ORDERED: PRASUGREL (EFFIENT) 10 MG TAB ONE (12:58)
[2019-11-05] MEDS ORDERED: NA CHLORIDE 0.9% 50 ML ONE (12:59)
[2019-11-05] MEDS ORDERED: HEPARIN 5000 UNIT/ML 1 ML VIAL ONE (12:59)
[2019-11-05] MEDS ORDERED: NICARDIPINE HCL 25 MG/10 ML IV ONE (12:59)
[2019-11-05] MEDS ORDERED: HEPA 1000U/500MLS 2,000 UNIT/1,000 ML BAG IV ONE (13:05)
[2019-11-05] MEDS ORDERED: ONDANSETRON 4 MG/2 ML VIAL ONE (13:22)
--- NOTE | 2019-11-05 15:26 | EKG ---
Test Date: 2019-11-05 Test Time: 13:09:36 Coverer: DANIA MEASUREMENT RESULTS: Intervals: Rate: 74 OH: 164 QRSD: 96 QT: 402 QTc: 446 Butler: P: 35 OH: 164 QRS: 30 T: 3 INTERPRETIVE STATEMENTS: Normal sinus rhythm Nonspecific T wave abnormality Abnormal ECG Compared to ECG 09/17/2017 02:56:19 Sinus tachycardia no longer present Short OH interval no longer present T-wave abnormality still present Electronically Signed On 11-05-19 15:25:30 PROJECT ACCOUNT MANAGER by Aung Coon
[2019-11-05] MEDS: METOPROLOL XL 100 MG TAB PO SCH (18:00)
[2019-11-05 18:02] VITALS: BMI 36.7
[2019-11-05] MEDS ORDERED: FENTANYL CITR 100 MCG/2 ML IV PRN (18:31)
--- NOTE | 2019-11-05 19:28 | RAD REPORT ---
EXAM DESCRIPTION: CT - Head Brain Wo Cont - 11/05/2019 7:18 pm CLINICAL HISTORY: Headache with nausea COMPARISON: None. TECHNIQUE: Axial 5 mm thick images of the head were obtained without IV contrast. All CT scans are performed using dose optimization technique as appropriate and may include automated exposure control or mA/KV adjustment according to patient size. FINDINGS: No intracranial hemorrhage, mass, edema or shift of mid-line structures. No acute cortical based infarction. No cortical edema or sulcal effacement. No abnormal extra-axial fluid collections. Ventricles are normal. No measurable atrophy change. Scattered areas of diminished attenuation seen in the cerebral white matter. This is most pronounced in the deep periventricular white matter left f rontal lobe near the basal ganglia and frontal horn left lateral ventricle. This is probably chronic ischemic change. History did not indicate any focal neurologic finding. Mastoid air cells and visualized portions of the paranasal sinuses are clear. No acute bony findings. IMPRESSION: No hemorrhage, mass or acute intracranial finding identifiable. No acute infarction change. Patient does have chronic ischemic change in the cerebral white matter mo st pronounced new left basal ganglia. Chronic ischemic changes can mask nonhemorrhagic acute infarction. MR brain followup can be obtained if there is ongoing concern for acute ischemia.
[2019-11-05] MEDS ORDERED: IBUPROFEN 200 MG TAB PO ONE (19:50)
[2019-11-05] MEDS ORDERED: ATORVASTATIN 40 MG TAB PO SCH (21:00)
[2019-11-05] MEDS: FERROUS SULFATE 325 MG TAB PO SCH (21:19)
--- NOTE | 2019-11-05 22:36 | OP ---
Surgeon: Aung Coon MD Identification: A 68-year-old woman. Procedures: Left heart catheterization, coronary angiography, and attempted percutaneous coronary in tervention of an obtuse marginal stenosis about 70%. Because of excessive tortuosity, we were unable to cross the lesion with a wire or even really get to the lesion with the wire, so it is an unsuccessful percutaneous coronary intervention attempt. Procedure In Detail: The patient was brought to the cardiac lab specialist fasting, sedated with Versed an d fentanyl. Prepared and draped in usual sterile fashion. Right radial approach was used. We were able to enter the right radial artery with a 21-gauge needle, cannulated with a 0.021-inch diameter g uidewire and placed a Terumo radial sheath in place. This allowed us to guide a TIG catheter into th e ascending aorta. We used a Glidewire and fluoroscopy. We were able to angiogram right and left co ronaries and decide on a plan of action. With the catheter in the left ventricle, there was too much ectopy for us to measure pressures or do an LV gram, so it was withdrawn without an LV gram. Becaus e of the 70% lesion in the circumflex, we attempted a coronary intervention. The old LAD stent was w idely patent. She is left dominant and she has a normal-looking left main, right coronary artery, LA D, although there is a stent in it. It is widely patent. The majority of the circumflex is free of any disease, but the obtuse marginal itself, a large vessel, looked like it needed a stent. We attem pted to put the stent in, but were unable to cross with a wire. There was excessive tortuosity. We attempted 4 different guide catheters before we could even engage the left main ostium, but once the guide catheter that worked was there, there was adequate support. It was not a guide support problem . We attempted an Ikari 3.5 with side holes, an XB 3.5 with side holes, an Amplatz AL2 with side hol es, and finally a JL-4 with side holes was the catheter that gave us support. It was just a matter o f tortuosity having to make almost 90 degree reverse bands with the wire and it just simply would not go into the ostium of the obtuse marginal. It got to the lesion, but would not cross, so no balloon inflations were done. The balloon never reached the lesion or crossed it, just the very tip of the guidewire got close to the lesion. At the end of the procedure, we took final pictures to make sure we had not altered the anatomy of the artery and we [facility] if we had done a percutaneous coronary intervention. She will get Effient for a shawn h and aspirin, Plavix, atorvastatin, beta blockers, and we will add ranolazine to try and treat this. She would be a very reluctant candidate to go through bypass surgery. I would be reluctant to amber mmend it to her. Perhaps, another approach with another set of eyes is worthwhile in the future to t ry and put a stent there if her symptoms are unmanageable. CAMI/TAVIA Voice ID: [id number] Report ID: [id number]
[2019-11-06 00:54] VITALS: O2SAT 95
[2019-11-06 04:40] LABS: Hematocrit 36.3 % (36.0-45.0); MPV 8.3 fL (7.6-11.3); RBC Red Blood Cell Count 4.35 M/uL (3.86-4.86)
[2019-11-06 04:47] LABS: BUN Blood Urea Nitrogen 9 mg/dL (7-18); Bicarbonate 33 mmol/L (21-32); Glucose Level 83 mg/dL (74-106); Potassium 3.6 mmol/L (3.5-5.1); Sodium Level 143 mmol/L (136-145)
[2019-11-06] MEDS: METOPROLOL XL 100 MG TAB PO SCH (05:37)
[2019-11-06] MEDS ORDERED: LEVOTHYROXINE SOD 0.112 MG TAB PO SCH (06:30)
--- NOTE | 2019-11-06 07:35 | DS ---
Date of Discharge: 11/06/2019 Hospital Course: She is admitted as outpatient in a bed status following cardiac cath and attempted angioplasty, which was unsuccessful. Her cardiac cath showed left dominant coronary arteries. Aura l left ventricular ejection fraction and pressures. A patent LAD stent, patent distal circumflex, pr oximal circumflex, posterolateral branches. There is a 70% lesion in the obtuse marginal that we att empted to stent, but because of extreme tortuosity, we could not get a wire to cross the lesion or ev en get through the lesion, so it was an aborted angioplasty attempt. The patient still has a 70% obt use marginal stenosis. Discharge Medications: Atorvastatin 40 mg per day, aspirin 81 mg per day, Clopidogrel 75 mg per day, iron sulfate 325 mg b.i.d., levothyroxine 112 mcg daily, metoprolol succinate 100 mg b.i.d., and Ran exa 500 mg b.i.d. Discharge Diet: Heart healthy, low-fat, low sugar. Followup: Her followup will be in my office in 2 weeks. She is to call. We did her catheterization through the right radial approach. Everything looks good with the punctur e site. Hand perfusion looks normal. The patient had a headache last night, so a CAT scan was done and revealed no mass or hemorrhage. She had no neurological dysfunction other than the headache. It is not believed she had a stroke. It is believed she had an unusual reaction to the contrast that w as used, rather large amount was used for her. I think it gave her a headache. She is fine. The fo llowing morning ready to be discharged. She understands the plan for diet, activities, followup, and medications. CAMI/TAVIA Voice ID: [id number] Report ID: [id number]
[2019-11-06] MEDS: FERROUS SULFATE 325 MG TAB PO SCH (07:58)
[2019-11-06 08:57] VITALS: BP 118/64; TEMP 98.2
[2019-11-06] MEDS ORDERED: ASPIRIN EC 81 MG TAB PO SCH (09:00)
[2019-11-06] MEDS ORDERED: CLOPIDOGREL 75 MG TABLET PO SCH (09:00)
== END 2019-11-06 08:00 | disposition home or self-care (01) ==
LOC: CCL 08:38 → 2ND 13:10 → INTOOBSV 13:10 → 2ND 13:10 → UNDOADMOB 13:10 → UNDODISOB 11-06 08:00 → CCL 11-06 08:00
PROVIDERS: ATTEND Internal Medicine
DX: I25.10 Atherosclerotic heart disease of native coronary artery without angina pectoris (principal); I77.1 Stricture of artery; I10 Essential (primary) hypertension; E78.2 Mixed hyperlipidemia; E11.9 Type 2 diabetes mellitus without complications; Z95.5 Presence of coronary angioplasty implant and graft; Z87.891 Personal history of nicotine dependence; Z82.49 Family history of ischemic heart disease and other diseases of the circulatory system
CPT/HCPCS: 93005; 85025; 80048 ×2; 36415 ×2; 85610; 82947 ×5; 85347; 85730; 85027; 70450; 71046; 93458; C1893; J1644; J2250 ×3; J3010 ×3; J0583; J7040; J2405

== ENCOUNTER 2023-02-04 22:07 | Inpatient (IN) | payer OTHER ==
--- OUTSIDE RECORDS SUMMARY | 2023-02-04 22:23 | XMS REPORT | Continuity of Care Document ---
:1950 Author Organization [facility] t Address [address] [place] [address] [address] [place] [address] Care Team Providers Name Role Phone Asked, No Pcp Primary Care Physician Unavailable America MENDOZA L Attending Clinician Unavailable IGNACIO THORNTON Attending Clinician Unavailable Greta OLIVIA, Jacobo Adams Attending Clinician Ignacio Hunt Attending Clinician Doctor Unassigned, [place] Attending Clinician Unavailable Lab, Ang - Db Attending Clinician Unavailable Nurse, Ang Db Attending Clinician Unavailable Vaccine, Ang Db Cbc Fam Attending Clinician Unavailable Madeleine Sandoval MA Attending Clinician Unavailable Tanya OLIVIA, Guanako Hidalgo Attending Clinician SHIRA SAUCEDO Attending Clinician Unavailable Sonia Ruiz RN Attending Clinician Unavailable Pcp, Patient Does Not Have A Attending Clinician [phone] MIRANDA ROBERTSON Attending Clinician Unavailable Lab, Adc Fam Pob I Attending Clinician Unavailable Miranda Westbrook Attending Clinician IGNACIO THORNTON Admitting Clinician Unavailable Payers Payer Name Policy Type Policy Number Effective Date Expiration Date [facility] [id number] 2020 [employer] [place] 00:00:00 PPO [facility] HealthSelect 1 [id number] 2021 Common TRS/ERS MCR PPO 00:00:00 [facility] ALL SAVERS [id number] 2020 00:00:00 MEDICARE NOVITAS MB [id number] [facility] MEDICARE NOVITAS MB [id number] [facility] MEDICARE NOVITAS MB [id number] [facility] MEDICARE NOVITAS MB [id number] [facility] MEDICARE NOVITAS MB [id number] [facility] Blue Cross Blue C1 [id number] 2017 [facility] 00:00:00 [facility] HUMANA CHOICE [id number] 2018 00:00:00 [employer] PPO I [id number] 2009 00:00:00 Problems Condition Condition Condition Status Onset Resolution Last Treating Co mments Source Name Details Category Date Date Treatment Clinician Date Hot Hot Disease Active 2021-10 Univers flashes flashes 07 ity of 00:00: [place] 00 Medical Branch Chronic Chronic Disease Active Univers fatigue fatigue 06-20 ity of 00:00: [place] 00 Medical Branch Allergy, Allergy, Disease Active Unive rs initial initial 06-20 [place] of [place] Cough Cough Disease Active Univers 9 ity of 00:00: [place] 00 Medical Branch Rash and Rash and Disease Active Unive rs other other 03-20 ity of nonspecifi nonspecifi [place] c skin c skin 00 Medical eruption eruption Branch Fall, Fall, Disease Active Univers initial initial 606 [place] of encounter encounter 00:[place] Weakness Weakness Disease Active Unive rs of both of both 02-14 ity of lower lower 00:00: [place] extremitie extremitie 00 Me dical s s Branch Age Age Disease Active Univers related related 02-13 ity of osteoporos osteoporos 00:[place] 00 Medical [place] AVM AVM Disease Active Univers (arteriove (arteriove 02-13 it y of nous nous 00:00: [place] malformati malformati 00 Me dical on) of on) of Branch duodenum, duodenum, acquired acquired with with hemorrhage hemorrhage Bilateral Bilateral Disease Active Uni vers lower lower 02-13 it[place] of extremity extremity 00:00[place] edema edema 00 Medical [place] Cerebral Cerebral Disease Active Unive rs ischemia ischemia 02-13 ity of 00:00: [place] 00 Medical Branch Cervical 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 02-13 it y of s without s without 00:00[place] myelopathy myelopathy 00 Me dical Branch 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 02-13 it y of 00:00: [place] 00 Medical Branch Presence Presence Disease Active Unive rs of of 02-13 ity of coronary coronary 00:00: [place] angioplast angioplast 00 Me dical y implant y implant Bran ch and graft and graft Chronic Chronic Disease Active Univers diastolic diastolic 1-16 ity of heart heart 00:00: [place] failure failure 00 Medical Branch Coronary Coronary Disease Active Unive rs atheroscle atheroscle 1-16 it y of rosis of rosis of 00:00: [place] 00 Medical coronary coronary Branch artery artery Crohn's Crohn's Disease Active Univers disease of disease of 1-16 it y of small small 00:00: [place] intestine intestine 00 Medi stanley with other with other Br anch complicati complicati on on Ex-smoker Ex-smoker Disease Active Uni vers 1-16 ity of 00:00: [place] 00 Medical Branch 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 1-16 it y of sterolemia sterolemia 00:[place]: [place] 00 [place] Gastroesop Gastroesop Disease Active U nivers hageal hageal 1-16 ity of reflux reflux 00:00: [place] disease disease 00 Medical without without Branch esophagiti esophagiti s s Hypertensi Hypertensi Disease Active U nivers ve heart ve heart 1-16 ity of and and 00:00: [place] chronic chronic 00 Medical kidney kidney Branch disease disease with heart with heart failure failure and stage and stage 1 through 1 through stage 4 stage 4 chronic chronic kidney kidney disease, disease, or or unspecifie unspecifie d chronic d chronic kidney kidney disease disease Hypothyroi Hypothyroi Disease Active U nivers dism due dism due -16 ity of to defect to defect 00:00[place] in thyroid in thyroid 00 Me dical hormone hormone Branch synthesis synthesis Nephrogeno Nephrogeno Disease Active U nivers [facility] 16 ity of proteinuri proteinuri 00:00[place] a a 00 Medical Branch Stage 1 Stage 1 Disease Active Univers chronic chronic 16 ity of kidney kidney 00:00: [place] disease disease 00 Medical Branch Vitamin D Vitamin D Disease Active Uni vers deficiency deficiency 16 it y of , , 00:00: [place] unspecifie unspecifie 00 Me dical d d Branch 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 Papillary Hypothyroi Hypothyroi Disease Active Overview : Univers dism dism 07-07 Formattin ity of 00:00: g of this [place] 00 note Medical might be Branch different from the original. ICD10 Diagnosis Term Gear [employer] [id number] Age-relate Problem Com mon d Spirit osteoporos - [facility] is without [facility] pathologic Medica l al Center fracture Chronic CKD Problem Common kidney (chronic Spirit disease kidney - CHI disease) [facility] [id number] Hypomagnes Problem Co mmon emia [facility] [id number] Low back Problem Comm on pain [facility] Obesity Obesity Problem Common [facility] Gastroesop GERD Problem Commo n hageal (gastroeso Spirit reflux phageal - CHI disease reflux St disease) [facility] Hyperlipid Hyperlipid Problem C ommon emia emia [facility] Hypertensi Hypertensi Problem C ommon on on Spirit - [facility] [id number] 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 - CHI associated [facility] with type [facility] diabetes Medica l mellitus Center [id number] Controlled Problem Co mmon type 2 Spirit diabetes - CH[facility] mellitus [facility] complic[facility] Medica l on, Center without long-term current use of insulin 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 Spirit disease disease - [facility] [id number] Stenosis Problem Comm on of [place] Spirit coronary - [facility]I artery [facility] Microcytic Microcytic Problem C ommon anemia anemia [facility] Acquired Acquired Problem Commo n hypothyroi hypothyroi Sp hanna dism dism [facility] [id number] Other Problem Common chronic [facility] pain [facility] [id number] Bilateral Problem Com mon lower Spirit extremity - [facility] edema [facility] [id number] Stented Problem Commo n coronary Spirit artery [facility] [id number] Crohn''s Problem Commo n disease Spirit with - CHI complicati St on, [facility] unspecifie Medica l d Center gastrointe stinal tract location [id number] Sebaceous Problem Com mon cyst [facility] Post H/O heart Problem Common percutaneo artery [facility] us stent - CHI translumin [facility] coronary [facility] angioplast Center y [id number] Unsteady Problem Commo n gait [facility] Atheroscle Atheroscle Problem C ommon rotic rotic [facility] heart heart - [facility] disease of disease of [facility] [place] [facility] coronary coronary Medica l artery artery Center without without angina angina pectoris pectoris [id number] Ischemic Problem Comm on changes on Spirit head CT - [facility] [id number] 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 [facility] disease of Medica l spine Center [id number] Cervicalgi Problem Com mon a [facility] [id number] Need for Problem Comm on assistance Spirit due to - [facility] unsteady [facility] [id number] AVM Problem Common (arteriove Spirit nous - CHI malformati St on) [facility], Medical acquired Center with hemorrhage [id number] Primary Problem Common insomnia [facility] [id number] Diabetic Problem Commo n polyneurop Spirit athy - CHI associated [facility] diabetes Medical mellitus Center due to underlying condition [id number] ACS (acute Problem Co mmon coronary Spirit syndrome) - [facility] [id number] Memory Problem Common deficit Spirit - CHI [facility] [id number] Adult Problem Common general Spirit medical - [facility] exam [facility] Allergies, Adverse Reactions, Alerts Allergy Allergy Status Severity Reaction(s) Onset Inactive Treating Comm ents Source Name Type Date Date Clinician NO KNOWN Drug Active Univers ALLERGIE Class ity of S [facility] [place] [facility] Social History Social Habit Start Date Stop Date Quantity Comments Source Gender identity [facility] Sexual orientation [facility] History of Tobacco Common Spirit - Use [facility] Exposure to 2022-08-11 2022-08-21 Not sure University SARS-CoV-2 (event) 00:00:00 09:19:00 [facility] [place] [facility] Alcohol intake 2022-02-14 2022-02-14 Current University 00:00:00 00:00:00 non-drinker of [facility] alcohol Branch (finding) Sex Ass[birth year] At [birth year] [facility] 00:[facility]00 [facility] Smoking Status Start Date Stop Date Source Tobacco smoking [facility] consumption unknown Former Smoker 2021-12-01 00:00:00 2021-12-01 Common Spiri t - [facility] 00:00:00 [facility] Medications Ordered Filled Start Stop Current Ordering Indication Dosage Frequency Signature Comments Components Source Medication Medication Date Date Medication? Clinician (SIG) Name Name rosuvastati Yes [id number] TAKE 1 Univers n 40 mg 3-22 TABLET BY ity of tablet 00:00: MOUTH [place] 00 EVERY DAY [facility] ascorbic 2022- No 500mg 500 mg Unive rs acid 2-10 -10 daily. ity of (VITAMIN C 07:55: 00:00 [place] ORAL) 04 :00 [facility] ascorbic 2022- No 500mg 500 mg Unive rs acid 2-10 -10 daily. ity of (VITAMIN C 07:55: 00:00 [place] ORAL) 04 :00 [facility] vitamin 2022- No 1000ug Take 1,000 U nivers B-12 2-10 02-10 mcg by ity of (VITAMIN 07:54: 00:00 mouth [place] B-12) 1,000 58 :00 daily. Medica l mcg tablet Takes 3000 Bra nch mcg daily vitamin 2022-0 2022- No 1000ug Take 1,000 U nivers B-12 2-10 02-10 mcg by ity of (VITAMIN 07:54: 00:00 mouth [place] B-12) 1,000 58 :00 daily. Medica l mcg tablet Takes 3000 Bra nch mcg daily empaglifloz 2022-0 Yes [id number] 10mg Take 1 Univers in 2-10 tablet by ity of (JARDIANCE) 00:00: mouth [place] 10 mg 00 the Medical morning. Branch empaglifloz 2022-0 Yes [id number] 10mg Take 1 Univers in 2-10 tablet by ity of (JARDIANCE) 00:00: mouth [place] 10 mg 00 the Medical morning. Branch empaglifloz 2022-0 Yes [id number] 10mg Take 1 Univers in 2-10 tablet by ity of (JARDIANCE) 00:00: mouth [place] 10 mg 00 the Medical morning. Branch empaglifloz 2022-0 Yes [id number] 10mg Take 1 Univers in 2-10 tablet by ity of (JARDIANCE) 00:00: mouth in [place] 10 mg 00 the Medical morning. Branch empaglifloz 2022-0 Yes [id number] 10mg Take 1 Univers in 2-10 tablet by ity of (JARDIANCE) 00:00: mouth in [place] 10 mg 00 the Medical morning. Branch empaglifloz 2022-0 Yes [id number] 10mg Take 1 Univers in 2-10 tablet by ity of (JARDIANCE) 00:00: mouth in [place] 10 mg 00 the Medical morning. Branch rosuvastati 2021-10- No TAKE 1 Uni vers n 40 mg 2-22 12-22 TABLET BY ity of tablet 15:02: 00:00 MOUTH [place] 30 :00 EVERY DAY Medical FOR 90 Branch DAYS metoprolol 2021-10 Yes [id number] 50mg Take 1 U nivers succinate 2-22 tablet by ity o f XL 50 mg 24 00:00: mouth in [place] hr tablet 00 the Medical morning Branch and 1 tablet in the evening. rosuvastati 2021-10 Yes [id number] TAKE 1 Univers n 40 mg 2-22 TABLET BY ity of tablet 00:00: MOUTH [place] 00 EVERY DAY Medical FOR 90 Branch DAYS metoprolol 2021-10 Yes [id number] 50mg Take 1 U nivers succinate 2-22 tablet by ity o f XL 50 mg 24 00:00: mouth in [place] hr tablet 00 the Medical morning Branch and 1 tablet in the evening. rosuvastati 2021-10 Yes [id number] TAKE 1 Univers n 40 mg 2-22 TABLET BY ity of tablet 00:00: MOUTH [place] 00 EVERY DAY Medical FOR 90 Branch DAYS metoprolol 2021-10 Yes [id number] 50mg Take 1 U nivers succinate 2-22 tablet by ity o f XL 50 mg 24 00:00: mouth [place] hr tablet 00 the Medical morning Branch and 1 tablet in the evening. rosuvastati 2021-10 Yes [id number] TAKE 1 Univers n 40 mg 2-22 TABLET BY ity of tablet 00:00: MOUTH [place] 00 EVERY DAY Medical FOR 90 Branch DAYS metoprolol 2021-10 Yes [id number] 50mg Take 1 U nivers succinate 2-22 tablet by ity o f XL 50 mg 24 00:00: mouth [place] hr tablet 00 the Medical morning Branch and 1 tablet in the evening. rosuvastati 2021-10 Yes [id number] TAKE 1 Univers n 40 mg 2-22 TABLET BY ity of tablet 00:00: MOUTH [place] 00 EVERY DAY Medical FOR 90 Branch DAYS metoprolol 2021-10 Yes [id number] 50mg Take 1 U nivers succinate 2-22 tablet by ity o f XL 50 mg 24 00:00: mouth in [place] hr tablet 00 the Medical morning Branch and 1 tablet in the evening. rosuvastati 2021-10 Yes [id number] TAKE 1 Univers n 40 mg 2-22 TABLET BY ity of tablet 00:00: MOUTH [place] 00 EVERY DAY Medical FOR 90 Branch DAYS metoprolol 2021-10 Yes [id number] 50mg Take 1 U nivers succinate 2-22 tablet by ity o f XL 50 mg 24 00:00: mouth in [place] hr tablet 00 the Medical morning Branch and 1 tablet in the evening. rosuvastati 2021-10 Yes [id number] TAKE 1 Univers n 40 mg 2-22 TABLET BY ity of tablet 00:00: MOUTH [place] 00 EVERY DAY Medical FOR 90 Branch DAYS metoprolol 2021-10 Yes [id number] 50mg Take 1 U nivers succinate 2-22 tablet by ity o f XL 50 mg 24 00:00: mouth in [place] hr tablet 00 the Medical morning Branch and 1 tablet in the evening. rosuvastati 2021-10 Yes [id number] TAKE 1 Univers n 40 mg 2-22 TABLET BY ity of tablet 00:00: MOUTH [place] 00 EVERY DAY Medical FOR 90 Branch DAYS metoprolol 2021-10 Yes [id number] 50mg Take 1 U nivers succinate 2-22 tablet by ity o f XL 50 mg 24 00:00: mouth in [place] hr tablet 00 the Medical morning Branch and 1 tablet in the evening. rosuvastati 2021-10 Yes [id number] TAKE 1 Univers n 40 mg 2-22 TABLET BY ity of tablet 00:00: MOUTH [place] 00 EVERY DAY Medical FOR 90 Branch DAYS metoprolol 2021-10 Yes [id number] 50mg Take 1 U nivers succinate 2-22 tablet by ity o f XL 50 mg 24 00:00: mouth in [place] hr tablet 00 the Medical morning Branch and 1 tablet in the evening. rosuvastati 2021-10 Yes [id number] TAKE 1 Univers n 40 mg 2-22 TABLET BY ity of tablet 00:00: MOUTH [place] 00 EVERY DAY Medical FOR 90 Branch DAYS metoprolol 2021-10 Yes [id number] 50mg Take 1 U nivers succinate 2-22 tablet by ity o f XL 50 mg 24 00:00: mouth in [place] hr tablet 00 the Medical morning Branch and 1 tablet in the evening. rosuvastati 2021-10 Yes [id number] TAKE 1 Univers n 40 mg 2-22 TABLET BY ity of tablet 00:00: MOUTH [place] 00 EVERY DAY Medical FOR 90 Branch DAYS metoprolol 2021-10 Yes [id number] 50mg Take 1 U nivers succinate 2-22 tablet by ity o f XL 50 mg 24 00:00: mouth [place] hr tablet 00 the Medical morning Branch and 1 tablet in the evening. rosuvastati 2021-10 Yes [id number] TAKE 1 Univers n 40 mg 2-22 TABLET BY ity of tablet 00:00: MOUTH [place] 00 EVERY DAY Medical FOR 90 Branch DAYS metoprolol 2021-10 Yes [id number] 50mg Take 1 U nivers succinate 2-22 tablet by ity o f XL 50 mg 24 00:00: mouth [place] hr tablet 00 the Medical morning Branch and 1 tablet in the evening. rosuvastati 2021-10 Yes [id number] TAKE 1 Univers n 40 mg 2-22 TABLET BY ity of tablet 00:00: MOUTH [place] 00 EVERY DAY Medical FOR 90 Branch DAYS metoprolol 2021-10 Yes [id number] 50mg Take 1 U nivers succinate 2-22 tablet by ity o f XL 50 mg 24 00:00: mouth [place] hr tablet 00 the Medical morning Branch and 1 tablet in the evening. rosuvastati 2021-10- No [id number] TAKE 1 Univers n 40 mg 2-22 03-22 TABLET BY ity of tablet 00:00: 00:00 MOUTH [place] 00 :00 EVERY DAY Medical FOR 90 Branch DAYS calcium 2021-10- No Univers carbonate/v 10-21 ity of itamin D3 08:36: 00:00 [place] (VITAMIN 36 :00 Medical D-3 ORAL) Branch calcium 2021-10- No Univers carbonate/v 10-21 ity of itamin D3 08:36: 00:00 [place] (VITAMIN 36 :00 Medical D-3 ORAL) Branch calcium 2021-10- No Univers carbonate/v 10-21 ity of itamin D3 08:36: 00:00 [place] (VITAMIN 36 :00 Medical D-3 ORAL) Branch calcium 2021-10- No Univers carbonate/v 10-21 ity of itamin D3 08:36: 00:00 [place] (VITAMIN 36 :00 Medical D-3 ORAL) Branch CETIRIZINE 2021-10- No Take by Uni vers HCL (ZYRTEC 10-21 mouth. ity o f ORAL) 08:36: 00:00 [place] 24 :00 Medical Branch CETIRIZINE 2021-10- No Take by Uni vers HCL (ZYRTEC 10-21 mouth. ity o f ORAL) 08:36: 00:00 [place] 24 :00 Medical Branch CETIRIZINE 2021-10- No Take by Uni vers HCL (ZYRTEC 10-21- mouth. ity o f ORAL) 08:36: 00:00 [place] 24 :00 Medical Branch CETIRIZINE 2021-10- No Take by Uni vers HCL (ZYRTEC 10-21 mouth. ity o f ORAL) 08:36: 00:00 [place] 24 :00 Medical Branch levothyroxi 2021-10 Yes [id number] 112ug Take 1 Univers ne 112 mcg 1-07 tablet by ity of tablet 00:00: mouth [place] 00 every Medical morning. Branch omeprazole 2021-10 Yes [id number] 40mg Take 1 Univers 40 mg 1-07 capsule by ity of capsule 00:00: mouth in [place] 00 the Medical morning. Branch levothyroxi 2021-10 Yes [id number] 112ug Take 1 Univers ne 112 mcg 1-07 tablet by ity of tablet 00:00: mouth [place] 00 every Medical morning. Branch omeprazole 2021-10 Yes [id number] 40mg Take 1 Univers 40 mg 1-07 capsule by ity of capsule 00:00: mouth in [place] 00 the Medical morning. Branch levothyroxi 2021-10 Yes [id number] 112ug Take 1 Univers ne 112 mcg 1-07 tablet by ity of tablet 00:00: mouth [place] 00 every Medical morning. Branch omeprazole 2021-10 Yes [id number] 40mg Take 1 Univers 40 mg 1-07 capsule by ity of capsule 00:00: mouth in [place] 00 the Medical morning. Branch levothyroxi 2021-10 Yes [id number] 112ug Take 1 Univers ne 112 mcg 1-07 tablet by ity of tablet 00:00: mouth [place] 00 every Medical morning. Branch omeprazole 2021-10 Yes [id number] 40mg Take 1 Univers 40 mg 1-07 capsule by ity of capsule 00:00: mouth in [place] 00 the Medical morning. Branch levothyroxi 2021-10 Yes [id number] 112ug Take 1 Univers ne 112 mcg 1-07 tablet by ity of tablet 00:00: mouth [place] 00 every Medical morning. Branch omeprazole 2021-10 Yes [id number] 40mg Take 1 Univers 40 mg 1-07 capsule by ity of capsule 00:00: mouth in [place] 00 the Medical morning. Branch levothyroxi 2021-10 Yes [id number] 112ug Take 1 Univers ne 112 mcg 1-07 tablet by ity of tablet 00:00: mouth [place] 00 every Medical morning. Branch omeprazole 2021-10 Yes [id number] 40mg Take 1 Univers 40 mg 1-07 capsule by ity of capsule 00:00: mouth in [place] 00 the Medical morning. Branch levothyroxi 2021-10 Yes [id number] 112ug Take 1 Univers ne 112 mcg 1-07 tablet by ity of tablet 00:00: mouth [place] 00 every Medical morning. Branch omeprazole 2021-10 Yes [id number] 40mg Take 1 Univers 40 mg 1-07 capsule by ity of capsule 00:00: mouth in [place] 00 the Medical morning. Branch levothyroxi 2021-10 Yes [id number] 112ug Take 1 Univers ne 112 mcg 1-07 tablet by ity of tablet 00:00: mouth [place] 00 every Medical morning. [place] omeprazole 2021-10 Yes [id number] 40mg Take 1 Univers 40 mg 1-07 capsule by ity of capsule 00:00: mouth in [place] 00 the Medical morning. [place] levothyroxi 2021-10 Yes [id number] 112ug Take 1 Univers ne 112 mcg 1-07 tablet by ity of tablet 00:00: mouth [place] 00 every Medical morning. [place] omeprazole 2021-10 Yes [id number] 40mg Take 1 Univers 40 mg 1-07 capsule by ity of capsule 00:00: mouth in [place] 00 the Medical morning. [place] levothyroxi 2021-10 Yes [id number] 112ug Take 1 Univers ne 112 mcg 1-07 tablet by ity of tablet 00:00: mouth [place] 00 every Medical morning. [place] omeprazole 2021-10 Yes [id number] 40mg Take 1 Univers 40 mg 1-07 capsule by ity of capsule 00:00: mouth in [place] 00 the Medical morning. Branch levothyroxi 2021-10 Yes [id number] 112ug Take 1 Univers ne 112 mcg 1-07 tablet by ity of tablet 00:00: mouth [place] 00 every Medical morning. Branch omeprazole 2021-10 Yes [id number] 40mg Take 1 Univers 40 mg 1-07 capsule by ity of capsule 00:00: mouth in [place] 00 the Medical morning. Branch levothyroxi 2021-10 Yes [id number] 112ug Take 1 Univers ne 112 mcg 1-07 tablet by ity of tablet 00:00: mouth [place] 00 every Medical morning. Branch omeprazole 2021-10 Yes [id number] 40mg Take 1 Univers 40 mg 1-07 capsule by ity of capsule 00:00: mouth in [place] 00 the Medical morning. Branch levothyroxi 2021-10 Yes [id number] 112ug Take 1 Univers ne 112 mcg 1-07 tablet by ity of tablet 00:00: mouth [place] 00 every Medical morning. Branch omeprazole 2021-10 Yes [id number] 40mg Take 1 Univers 40 mg 1-07 capsule by ity of capsule 00:00: mouth in [place] 00 the Medical morning. Branch levothyroxi 2021-10 Yes [id number] 112ug Take 1 Univers ne 112 mcg 1-07 tablet by ity of tablet 00:00: mouth [place] 00 every Medical morning. Branch omeprazole 2021-10 Yes [id number] 40mg Take 1 Univers 40 mg 1-07 capsule by ity of capsule 00:00: mouth in [place] 00 the Medical morning. Branch levothyroxi 2021-10 Yes [id number] 112ug Take 1 Univers ne 112 mcg 1-07 tablet by ity of tablet 00:00: mouth [place] 00 every Medical morning. [place] omeprazole 2021-10 Yes [id number] 40mg Take 1 Univers 40 mg 1-07 capsule by ity of capsule 00:00: mouth in [place] 00 the Medical morning. Branch levothyroxi 2021-10 Yes [id number] 112ug Take 1 Univers ne 112 mcg 1-07 tablet by ity of tablet 00:00: mouth [place] 00 every Medical morning. Branch omeprazole 2021-10 Yes [id number] 40mg Take 1 Univers 40 mg 1-07 capsule by ity of capsule 00:00: mouth in [place] 00 the Medical morning. Branch levothyroxi 2021-10 Yes [id number] 112ug Take 1 Univers ne 112 mcg 1-07 tablet by ity of tablet 00:00: mouth [place] 00 every Medical morning. Branch omeprazole 2021-10 Yes [id number] 40mg Take 1 Univers 40 mg 1-07 capsule by ity of capsule 00:00: mouth in [place] 00 the Medical morning. Branch levothyroxi 2021-10 Yes [id number] 112ug Take 1 Univers ne 112 mcg 1-07 tablet by ity of tablet 00:00: mouth [place] 00 every Medical morning. Branch omeprazole 2021-10 Yes [id number] 40mg Take 1 Univers 40 mg 1-07 capsule by ity of capsule 00:00: mouth in [place] 00 the Medical morning. Branch levothyroxi 2021-10 Yes [id number] 112ug Take 1 Univers ne 112 mcg 1-07 tablet by ity of tablet 00:00: mouth [place] 00 every Medical morning. Branch omeprazole 2021-10 Yes [id number] 40mg Take 1 Univers 40 mg 1-07 capsule by ity of capsule 00:00: mouth in [place] 00 the Medical morning. Branch levothyroxi 2021-10 Yes [id number] 112ug Take 1 Univers ne 112 mcg 1-07 tablet by ity of tablet 00:00: mouth [place] 00 every Medical morning. Branch omeprazole 2021-10 Yes [id number] 40mg Take 1 Univers 40 mg 1-07 capsule by ity of capsule 00:00: mouth in [place] 00 the Medical morning. Branch levothyroxi 2021-10 Yes [id number] 112ug Take 1 [facility] ne 112 mcg 1-07 tablet by [facility] of tablet 00:00: mouth [place] 00 every Medical morning. Branch omeprazole 2021-10 Yes [id number] 40mg Take 1 [facility] 40 mg 1-07 capsule by [facility] of capsule 00:00: mouth in [place] 00 the Medical morning. Branch omeprazole 2021-10 Yes [id number] 40mg Take 1 [facility] 40 mg 0-21 capsule by [facility] of capsule 00:00: mouth in [place] 00 the Medical morning. Branch omeprazole 2021-10- No [id number] 40mg Take 1 [facility] 40 mg 0-21 11-07 capsule by [facility] of capsule 00:00: 00:00 mouth in [place] 00 :00 the Medical morning. Branch omeprazole 2021-10- No [id number] 40mg Take 1 [facility] 40 mg 0-21 11-07 capsule by [facility] of capsule 00:00: 00:00 mouth in [place] 00 :00 the Medical morning. Branch omeprazole 2021-10- No [id number] 40mg Take 1 [facility] 40 mg 0-21 11-07 capsule by [facility] of capsule 00:00: 00:00 mouth in [place] 00 :00 the Medical morning. Branch omeprazole 2021-10- No [id number] 40mg Take 1 [facility] 40 mg 0-21 11-07 capsule by [facility] of capsule 00:00: 00:00 mouth in [place] 00 :00 the Medical morning. Branch hydrOXYchlo 2-1 Yes 200mg Take 200 [facility] roQUINE 200 0-19 mg by [facility] mg tablet 00:00: mouth in [place] 00 the Medical morning Branch and 200 mg in the evening. hydrOXYchlo 2-1 Yes 200mg Take 200 [facility] roQUINE 200 0-19 mg by [facility] mg tablet 00:00: mouth in [place] 00 the Medical morning Branch and 200 mg in the evening. hydrOXYchlo 2021-1 Yes 200mg Take 200 [facility] roQUINE 200 0-19 mg by [facility] mg tablet 00:00: mouth [place] 00 the Medical morning Branch and 200 mg in the evening. hydrOXYchlo 2021-1 Yes 200mg Take 200 [facility] roQUINE 200 0-19 mg by [facility] mg tablet 00:00: mouth [place] 00 the Medical morning Branch and 200 mg in the evening. hydrOXYchlo 2021-1 Yes 200mg Take 200 [facility] roQUINE 200 0-19 mg by [facility] mg tablet 00:00: mouth [place] 00 the Medical morning Branch and 200 mg in the evening. hydrOXYchlo 2021-1 Yes 200mg Take 200 [facility] roQUINE 200 0-19 mg by [facility] mg tablet 00:00: mouth in [place] 00 the Medical morning Branch and 200 mg in the evening. hydrOXYchlo 2-1 Yes 200mg Take 200 [facility] roQUINE 200 0-19 mg by [facility] mg tablet 00:00: mouth in [place] 00 the Medical morning Branch and 200 mg in the evening. hydrOXYchlo 2022-1 Yes 200mg Take 200 [facility] roQUINE 200 0-19 mg by [facility] mg tablet 00:00: mouth in [place] 00 the Medical morning Branch and 200 mg in the evening. hydrOXYchlo 2022-1 Yes 200mg Take 200 [facility] roQUINE 200 0-19 mg by [facility] mg tablet 00:00: mouth in [place] 00 the Medical morning Branch and 200 mg in the evening. hydrOXYchlo 2022-1 Yes 200mg Take 200 [facility] roQUINE 200 0-19 mg by [facility] mg tablet 00:00: mouth in [place] 00 the Medical morning Branch and 200 mg in the evening. hydrOXYchlo 2022-1 Yes 200mg Take 200 [facility] roQUINE 200 0-19 mg by [facility] mg tablet 00:00: mouth in [place] 00 the Medical morning Branch and 200 mg in the evening. hydrOXYchlo 2022-1 Yes 200mg Take 200 [facility] roQUINE 200 0-19 mg by [facility] mg tablet 00:00: mouth in [place] 00 the Medical morning Branch and 200 mg in the evening. hydrOXYchlo 2022-1 Yes 200mg Take 200 [facility] roQUINE 200 0-19 mg by [facility] mg tablet 00:00: mouth in [place] 00 the Medical morning Branch and 200 mg in the evening. hydrOXYchlo 2022-1 Yes 200mg Take 200 [facility] roQUINE 200 0-19 mg by [facility] of mg tablet 00:00: mouth in [place] 00 the Medical morning Branch and 200 mg in the evening. hydrOXYchlo 2022-1 Yes 200mg Take 200 [facility] roQUINE 200 0-19 mg by [facility] of mg tablet 00:00: mouth in [place] 00 the Medical morning Branch and 200 mg in the evening. hydrOXYchlo 2022-1 Yes 200mg Take 200 [facility] roQUINE 200 0-19 mg by [facility] of mg tablet 00:00: mouth in [place] 00 the Medical morning Branch and 200 mg in the evening. hydrOXYchlo 2022-1 Yes 200mg Take 200 [facility] roQUINE 200 0-19 mg by [facility] of mg tablet 00:00: mouth in [place] 00 the Medical morning Branch and 200 mg in the evening. hydrOXYchlo 2022-1 Yes 200mg Take 200 [facility] roQUINE 200 0-19 mg by [facility] of mg tablet 00:00: mouth [place] 00 the Medical morning Branch and 200 mg in the evening. hydrOXYchlo 2022-1 Yes 200mg Take 200 [facility] roQUINE 200 0-19 mg by [facility] of mg tablet 00:00: mouth in [place] 00 the Medical morning Branch and 200 mg in the evening. hydrOXYchlo 2022-1 Yes 200mg Take 200 [facility] roQUINE 200 0-19 mg by [facility] of mg tablet 00:00: mouth in [place] 00 the Medical morning Branch and 200 mg in the evening. hydrOXYchlo 1 Yes 200mg Take 200 [facility] roQUINE 200 0-19 mg by [facility] of mg tablet 00:00: mouth in [place] 00 the Medical morning Branch and 200 mg in the evening. levothyroxi 2021-0 Yes [id number] 100ug Take 1 [facility] ne 100 mcg 9-07 tablet by [facility] of tablet 00:00: mouth [place] 00 every Medical morning. Branch levothyroxi 2021-0 Yes [id number] 100ug Take 1 [facility] ne 100 mcg 9-07 tablet by [facility] of tablet 00:00: mouth [place] 00 every Medical morning. Branch levothyroxi 2021-0 Yes [id number] 100ug Take 1 [facility] ne 100 mcg 9-07 tablet by [facility] of tablet 00:00: mouth [place] 00 every Medical morning. Branch levothyroxi 2021-0 Yes [id number] 100ug Take 1 [facility] ne 100 mcg 9-07 tablet by [facility] of tablet 00:00: mouth [place] 00 every Medical morning. Branch levothyroxi 2021-0 Yes [id number] 100ug Take 1 [facility] ne 100 mcg 9-07 tablet by [facility] of tablet 00:00: mouth [place] 00 every Medical morning. Branch levothyroxi 2021-0 Yes [id number] 100ug Take 1 [facility] ne 100 mcg 9-07 tablet by [facility] of tablet 00:00: mouth [place] 00 every Medical morning. Branch levothyroxi 2021-0 Yes [id number] 100ug Take 1 [facility] ne 100 mcg 9-07 tablet by [facility] of tablet 00:00: mouth [place] 00 every Medical morning. Branch levothyroxi 2021-0 Yes [id number] 100ug Take 1 [facility] ne 100 mcg 9-07 tablet by [facility] of tablet 00:00: mouth [place] 00 every Medical morning. Branch levothyroxi 2021-0 Yes [id number] 100ug Take 1 [facility] ne 100 mcg 9-07 tablet by [facility] of tablet 00:00: mouth [place] 00 every Medical morning. Branch levothyroxi 2021-0 Yes [id number] 100ug Take 1 [facility] ne 100 mcg 9-07 tablet by [facility] of tablet 00:00: mouth [place] 00 every Medical morning. Branch levothyroxi 2021-0 Yes [id number] 100ug Take 1 [facility] ne 100 mcg 9-07 tablet by [facility] of tablet 00:00: mouth [place] 00 every Medical morning. Branch levothyroxi Yes [id number] 100ug Take 1 [facility] ne 100 mcg 9-07 tablet by [facility] of tablet 00:00: mouth [place] 00 every Medical morning. Branch levothyroxi 2021- No [id number] 100ug Take 1 [facility] ne 100 mcg 9-07 11-07 tablet by [facility] of tablet 00:00: 00:00 mouth [place] 00 :00 every Medical morning. Branch levothyroxi 2021-0 2021- No [id number] 100ug Take 1 [facility] ne 100 mcg 9-07 11-07 tablet by [facility] of tablet 00:00: 00:00 mouth [place] 00 :00 every Medical morning. Branch levothyroxi 2021-2021- No [id number] 100ug Take 1 [facility] ne 100 mcg 9-07 11-07 tablet by [facility] of tablet 00:00: 00:00 mouth [place] 00 :00 every Medical morning. Branch levothyroxi 2021- No [id number] 100ug Take 1 [facility] ne 100 mcg -07 11-07 tablet by [facility] of tablet 00:00: 00:00 mouth [place] 00 :00 every Medical morning. Branch CETIRIZINE Yes Take by [facility] ers HCL (ZYRTEC 06 mouth. ity of ORAL) 09:59: [place] [address] Medical Branch calcium Yes [facility] carbonate/v 9-06 ity of itamin D3 09:59: [place] (VITAMIN 20 Medical D-3 ORAL) Branch CETIRIZINE Yes Take by [facility] ers HCL (ZYRTEC 9-06 mouth. ity of ORAL) 09:59: [place] [address] Medical Branch calcium Yes [facility] carbonate/v 9-06 ity of itamin D3 09:59: [place] (VITAMIN 20 Medical D-3 ORAL) Branch CETIRIZINE Yes Take by [facility] ers HCL (ZYRTEC 9-06 mouth. ity of ORAL) 09:59: [place] [address] Medical Branch calcium Yes [facility] carbonate/v 9-06 ity of itamin D3 09:59: [place] (VITAMIN 20 Medical D-3 ORAL) Branch CETIRIZINE Yes Take by [facility] ers HCL (ZYRTEC 9-06 mouth. ity of ORAL) 09:59: [address] calcium Yes [facility] carbonate/v 9-06 ity of itamin D3 09:59: [place] [facility]VITAMIN [facility]-06 mouth. ity of ORAL) 09:59: [address] calcium Yes [facility] carbonate/v 9-06 ity of itamin D3 09:59: [place] (VITAMIN 20 Medical [facility] ORAL) [facility] (ZYRTEC 9-06 mouth. ity of ORAL) 09:59: [address] calcium Yes [facility] carbonate/v 9-06 ity of itamin D3 09:59: [place] (VITAMIN 20 [facility] ([facility]EC 9-06 mouth. ity of ORAL) 09:59: [address] calcium Yes [facility] carbonate/v 9-06 ity of itamin D3 09:59: [place] (VITAMIN 20 Medical [facility]AL) [facility] (ZYRTEC 9-06 mouth. ity of ORAL) 09:59: [address] calcium Yes [facility] carbonate/v 9-06 ity of itamin D3 09:59: [place] (VITAMIN 20 Medical [facility]3 ORAL) [facility] (ZYRTEC 9-06 mouth. ity of ORAL) 09:59: [address] calcium Yes [facility] carbonate/v 9-06 ity of itamin D3 09:59: [place] (VITAMIN 20 Medical D[facility]3 ORAL) [facility] (ZYRTEC 9-06 mouth. ity of ORAL) 09:59: [address] calcium Yes [facility] carbonate/v 9-06 ity of itamin D3 09:59: [place] (VITAMIN 20 Medical D[facility]3 ORAL) [facility] (ZYRTEC 9-06 mouth. ity of ORAL) 09:59: [place] 20 Medical Branch calcium Yes [facility] carbonate/v 06-20 ity of itamin D3 09:59: [place] (VITAMIN 20 Medical D-3 ORAL) Branch CETIRIZINE Yes Take by [facility] ers HCL (ZYRTEC 06-20 mouth. ity of ORAL) 09:59: [place] 20 Medical Branch calcium Yes [facility] carbonate/v 06-20 ity of itamin D3 09:59: [place] (VITAMIN 20 Medical D-3 ORAL) Branch metoprolol Yes [id number] 50mg Take 1 U nivers succinate 9-06 tablet by ity o f XL 50 mg 24 00:00: mouth in [place] hr tablet 00 the Medical morning Branch and 1 tablet in the evening. montelukast Yes [id number] 10mg Take 1 [facility] (SINGULAIR) 9-06 tablet by ity of 10 mg 00:00: mouth in [place] tablet 00 the Medical morning. Branch raloxifene Yes [id number] 60mg Take 1 [facility] nivers 60 mg 9-06 tablet by ity of tablet 00:00: mouth in [place] 00 the Medical morning. Branch metoprolol Yes [id number] 50mg Take 1 [facility] nivers succinate 9-06 tablet by ity o f XL 50 mg 24 00:00: mouth in [place] hr tablet 00 the Medical morning Branch and 1 tablet in the evening. montelukast 2021- Yes [id number] 10mg Take 1 [facility] (SINGULAIR) 9-06 tablet by ity of 10 mg 00:00: mouth in [place] tablet 00 the Medical morning. Branch raloxifene 0 Yes [id number] 60mg Take 1 [facility] nivers 60 mg 9-06 tablet by ity of tablet 00:00: mouth in [place] 00 the Medical morning. Branch metoprolol 0 Yes [id number] 50mg Take 1 [facility] nivers succinate 9-06 tablet by ity o f XL 50 mg 24 00:00: mouth in [place] hr tablet 00 the Medical morning Branch and 1 tablet in the evening. montelukast 2021-0 Yes [id number] 10mg Take 1 [facility] (SINGULAIR) 9-06 tablet by ity of 10 mg 00:00: mouth in [place] tablet 00 the Medical morning. Branch raloxifene 2-0 Yes [id number] 60mg Take 1 [facility] nivers 60 mg 9-06 tablet by it[facility] of tablet 00:00: mouth in [place] 00 the Medical morning. Branch metoprolol 2021-0 Yes [id number] 50mg Take 1 [facility] nivers succinate 9-06 tablet by ity o f XL 50 mg 24 00:00: mouth in [place] hr tablet 00 the Medical morning Branch and 1 tablet in the evening. montelukast 2-0 Yes [id number] 10mg Take 1 [facility] (SINGULAIR) 9-06 tablet by ity of 10 mg 00:00: mouth in [place] tablet 00 the Medical morning. Branch raloxifene 2021-0 Yes [id number] 60mg Take 1 [facility] nivers 60 mg 9-06 tablet by it[facility] of tablet 00:00: mouth in [place] 00 the Medical morning. Branch metoprolol 2021-0 Yes [id number] 50mg Take 1 [facility] nivers succinate 9-06 tablet by ity o f XL 50 mg 24 00:00: mouth in [place] hr tablet 00 the Medical morning Branch and 1 tablet in the evening. montelukast 2-0 Yes [id number] 10mg Take 1 [facility] (SINGULAIR) 9-06 tablet by ity of 10 mg 00:00: mouth in [place] tablet 00 the Medical morning. Branch raloxifene 2021-0 Yes [id number] 60mg Take 1 [facility] nivers 60 mg 9-06 tablet by ity of tablet 00:00: mouth in [place] 00 the Medical morning. Branch metoprolol 2-0 Yes [id number] 50mg Take 1 [facility] nivers succinate 9-06 tablet by ity o f XL 50 mg 24 00:00: mouth in [place] hr tablet 00 the Medical morning Branch and 1 tablet in the evening. montelukast 2-0 Yes [id number] 10mg Take 1 [facility] (SINGULAIR) 9-06 tablet by ity of 10 mg 00:00: mouth in [place] tablet 00 the Medical morning. Branch raloxifene 2-0 Yes [id number] 60mg Take 1 [facility] nivers 60 mg 9-06 tablet by ity of tablet 00:00: mouth in [place] 00 the Medical morning. Branch metoprolol 2-0 Yes [id number] 50mg Take 1 [facility] nivers succinate 9-06 tablet by ity o f XL 50 mg 24 00:00: mouth in [place] hr tablet 00 the Medical morning Branch and 1 tablet in the evening. montelukast 2021-0 Yes [id number] 10mg Take 1 [facility] (SINGULAIR) 9-06 tablet by ity of 10 mg 00:00: mouth in [place] tablet 00 the Medical morning. Branch raloxifene 2021-0 Yes [id number] 60mg Take 1 [facility] nivers 60 mg 9-06 tablet by ity of tablet 00:00: mouth in [place] 00 the Medical morning. Branch metoprolol 2021-0 Yes [id number] 50mg Take 1 [facility] nivers succinate 9-06 tablet by ity o f XL 50 mg 24 00:00: mouth in [place] hr tablet 00 the Medical morning Branch and 1 tablet in the evening. montelukast 2021-0 Yes [id number] 10mg Take 1 [facility] (SINGULAIR) 9-06 tablet by ity of 10 mg 00:00: mouth in [place] tablet 00 the Medical morning. Branch raloxifene 2021-0 Yes [id number] 60mg Take 1 [facility] nivers 60 mg 9-06 tablet by ity of tablet 00:00: mouth in [place] 00 the Medical morning. Branch metoprolol 2021-0 Yes [id number] 50mg Take 1 [facility] nivers succinate 9-06 tablet by ity o f XL 50 mg 24 00:00: mouth in [place] hr tablet 00 the Medical morning Branch and 1 tablet in the evening. montelukast 2021-0 Yes [id number] 10mg Take 1 [facility] (SINGULAIR) 9-06 tablet by ity of 10 mg 00:00: mouth in [place] tablet 00 the Medical morning. Branch raloxifene 2021-0 Yes [id number] 60mg Take 1 [facility] nivers 60 mg 9-06 tablet by ity of tablet 00:00: mouth in [place] 00 the Medical morning. Branch metoprolol 2021-0 Yes [id number] 50mg Take 1 [facility] nivers succinate 9-06 tablet by ity o f XL 50 mg 24 00:00: mouth in [place] hr tablet 00 the Medical morning Branch and 1 tablet in the evening. montelukast 2-0 Yes [id number] 10mg Take 1 [facility] (SINGULAIR) 9-06 tablet by ity of 10 mg 00:00: mouth in [place] tablet 00 the Medical morning. Branch raloxifene 2-0 Yes [id number] 60mg Take 1 [facility] nivers 60 mg 9-06 tablet by ity of tablet 00:00: mouth in [place] 00 the Medical morning. Branch metoprolol 2-0 Yes [id number] 50mg Take 1 [facility] nivers succinate 9-06 tablet by ity o f XL 50 mg 24 00:00: mouth in [place] hr tablet 00 the Medical morning Branch and 1 tablet in the evening. montelukast 2-0 Yes [id number] 10mg Take 1 [facility] (SINGULAIR) 9-06 tablet by ity of 10 mg 00:00: mouth in [place] tablet 00 the Medical morning. Branch raloxifene 2021-0 Yes [id number] 60mg Take 1 [facility] nivers 60 mg 9-06 tablet by ity of tablet 00:00: mouth in [place] 00 the Medical morning. Branch metoprolol 2021-0 Yes [id number] 50mg Take 1 [facility] nivers succinate 9-06 tablet by ity o f XL 50 mg 24 00:00: mouth in [place] hr tablet 00 the Medical morning Branch and 1 tablet in the evening. montelukast 2-0 Yes [id number] 10mg Take 1 [facility] (SINGULAIR) 9-06 tablet by ity of 10 mg 00:00: mouth in [place] tablet 00 the Medical morning. Branch raloxifene 2-0 Yes [id number] 60mg Take 1 [facility] nivers 60 mg 9-06 tablet by ity of tablet 00:00: mouth in [place] 00 the Medical morning. Branch metoprolol 2-0 Yes [id number] 50mg Take 1 [facility] nivers succinate 9-06 tablet by ity o f XL 50 mg 24 00:00: mouth in [place] hr tablet 00 the Medical morning Branch and 1 tablet in the evening. montelukast 2-0 Yes [id number] 10mg Take 1 [facility] (SINGULAIR) 9-06 tablet by ity of 10 mg 00:00: mouth in [place] tablet 00 the Medical morning. Branch raloxifene 2-0 Yes [id number] 60mg Take 1 [facility] nivers 60 mg 9-06 tablet by ity of tablet 00:00: mouth in [place] 00 the Medical morning. Branch metoprolol 2-0 Yes [id number] 50mg Take 1 [facility] nivers succinate 9-06 tablet by ity o f XL 50 mg 24 00:00: mouth in [place] hr tablet 00 the Medical morning Branch and 1 tablet in the evening. montelukast 2021-0 Yes [id number] 10mg Take 1 [facility] (SINGULAIR) 9-06 tablet by ity of 10 mg 00:00: mouth in [place] tablet 00 the Medical morning. Branch raloxifene 2021-0 Yes [id number] 60mg Take 1 [facility] nivers 60 mg 9-06 tablet by ity of tablet 00:00: mouth in [place] 00 the Medical morning. Branch metoprolol 2021-0 Yes [id number] 50mg Take 1 [facility] nivers succinate 9-06 tablet by ity o f XL 50 mg 24 00:00: mouth in [place] hr tablet 00 the Medical morning Branch and 1 tablet in the evening. montelukast 2021-0 Yes [id number] 10mg Take 1 [facility] (SINGULAIR) 9-06 tablet by ity of 10 mg 00:00: mouth in [place] tablet 00 the Medical morning. Branch raloxifene 2021-0 Yes [id number] 60mg Take 1 [facility] nivers 60 mg 9-06 tablet by ity of tablet 00:00: mouth in [place] 00 the Medical morning. Branch metoprolol 2021-0 Yes [id number] 50mg Take 1 [facility] nivers succinate 9-06 tablet by ity o f XL 50 mg 24 00:00: mouth in [place] hr tablet 00 the Medical morning Branch and 1 tablet in the evening. montelukast 2021-0 Yes [id number] 10mg Take 1 [facility] (SINGULAIR) 9-06 tablet by ity of 10 mg 00:00: mouth in [place] tablet 00 the Medical morning. Branch raloxifene 2021-0 Yes [id number] 60mg Take 1 [facility] nivers 60 mg 9-06 tablet by ity of tablet 00:00: mouth in [place] 00 the Medical morning. Branch metoprolol 2021-0 Yes [id number] 50mg Take 1 [facility] nivers succinate 9-06 tablet by ity o f XL 50 mg 24 00:00: mouth in [place] hr tablet 00 the Medical morning Branch and 1 tablet in the evening. montelukast 2-0 Yes [id number] 10mg Take 1 [facility] (SINGULAIR) 9-06 tablet by ity of 10 mg 00:00: mouth in [place] tablet 00 the Medical morning. Branch raloxifene 2021-0 Yes [id number] 60mg Take 1 [facility] nivers 60 mg 9-06 tablet by ity of tablet 00:00: mouth in [place] 00 the Medical morning. Branch metoprolol 2021-0 Yes [id number] 50mg Take 1 [facility] nivers succinate 9-06 tablet by ity o f XL 50 mg 24 00:00: mouth in [place] hr tablet 00 the Medical morning Branch and 1 tablet in the evening. montelukast 2021-0 Yes [id number] 10mg Take 1 [facility] (SINGULAIR) 9-06 tablet by ity of 10 mg 00:00: mouth in [place] tablet 00 the Medical morning. Branch raloxifene 2021-0 Yes [id number] 60mg Take 1 [facility] nivers 60 mg 9-06 tablet by ity of tablet 00:00: mouth in [place] 00 the Medical morning. Branch metoprolol 2021-0 Yes [id number] 50mg Take 1 [facility] nivers succinate 9-06 tablet by ity o f XL 50 mg 24 00:00: mouth in [place] hr tablet 00 the Medical morning Branch and 1 tablet in the evening. montelukast 2021-0 Yes [id number] 10mg Take 1 [facility] (SINGULAIR) 9-06 tablet by ity of 10 mg 00:00: mouth in [place] tablet 00 the Medical morning. Branch raloxifene 2021-0 Yes [id number] 60mg Take 1 [facility] nivers 60 mg 9-06 tablet by ity of tablet 00:00: mouth in [place] 00 the Medical morning. Branch montelukast 2021-0 Yes [id number] 10mg Take 1 [facility] (SINGULAIR) 9-06 tablet by ity of 10 mg 00:00: mouth in [place] tablet 00 the Medical morning. Branch raloxifene 2021-0 Yes [id number] 60mg Take 1 [facility] nivers 60 mg 9-06 tablet by ity of tablet 00:00: mouth in [place] 00 the Medical morning. Branch montelukast 2021-0 Yes [id number] 10mg Take 1 [facility] (SINGULAIR) 9-06 tablet by ity of 10 mg 00:00: mouth in [place] tablet 00 the Medical morning. Branch raloxifene 2021-0 Yes [id number] 60mg Take 1 [facility] nivers 60 mg 9-06 tablet by ity of tablet 00:00: mouth in [place] 00 the Medical morning. Branch montelukast 2021-0 Yes [id number] 10mg Take 1 [facility] (SINGULAIR) 9-06 tablet by ity of 10 mg 00:00: mouth in [place] tablet 00 the Medical morning. Branch raloxifene 2021-0 Yes [id number] 60mg Take 1 [facility] nivers 60 mg 9-06 tablet by ity of tablet 00:00: mouth in [place] 00 the Medical morning. Branch montelukast 2021-0 Yes [id number] 10mg Take 1 [facility] (SINGULAIR) 9-06 tablet by ity of 10 mg 00:00: mouth in [place] tablet 00 the Medical morning. Branch raloxifene 2021-0 Yes [id number] 60mg Take 1 [facility] nivers 60 mg 9-06 tablet by ity of tablet 00:00: mouth in [place] 00 the Medical morning. Branch montelukast 2021-0 Yes [id number] 10mg Take 1 [facility] (SINGULAIR) 9-06 tablet by ity of 10 mg 00:00: mouth in [place] tablet 00 the Medical morning. Branch raloxifene 2021-0 Yes [id number] 60mg Take 1 [facility] nivers 60 mg 9-06 tablet by ity of tablet 00:00: mouth in [place] 00 the Medical morning. Branch montelukast 2021-0 Yes [id number] 10mg Take 1 [facility] (SINGULAIR) 9-06 tablet by ity of 10 mg 00:00: mouth in [place] tablet 00 the Medical morning. Branch raloxifene 2021-0 Yes [id number] 60mg Take 1 [facility] nivers 60 mg 9-06 tablet by ity of tablet 00:00: mouth in [place] 00 the Medical morning. Branch montelukast 2-0 Yes [id number] 10mg Take 1 [facility] (SINGULAIR) 9-06 tablet by ity of 10 mg 00:00: mouth in [place] tablet 00 the Medical morning. Branch raloxifene 2-0 Yes [id number] 60mg Take 1 [facility] nivers 60 mg 9-06 tablet by ity of tablet 00:00: mouth in [place] 00 the Medical morning. Branch montelukast 2-0 Yes [id number] 10mg Take 1 [facility] (SINGULAIR) 9-06 tablet by ity of 10 mg 00:00: mouth in [place] tablet 00 the Medical morning. Branch raloxifene 2021-0 Yes [id number] 60mg Take 1 [facility] nivers 60 mg 9-06 tablet by ity of tablet 00:00: mouth in [place] 00 the Medical morning. Branch montelukast 2021-0 Yes [id number] 10mg Take 1 [facility] (SINGULAIR) 9-06 tablet by ity of 10 mg 00:00: mouth in [place] tablet 00 the Medical morning. Branch raloxifene 2021-0 Yes [id number] 60mg Take 1 [facility] nivers 60 mg 9-06 tablet by ity of tablet 00:00: mouth in [place] 00 the Medical morning. Branch raloxifene 2021-0 Yes [id number] 60mg Take 1 [facility] nivers 60 mg 9-06 tablet by ity of tablet 00:00: mouth in [place] 00 the Medical morning. Branch raloxifene 2021-0 Yes [id number] 60mg Take 1 [facility] nivers 60 mg 9-06 tablet by ity of tablet 00:00: mouth in [place] 00 the Medical morning. Branch raloxifene 2021-0 Yes [id number] 60mg Take 1 [facility] nivers 60 mg 9-06 tablet by ity of tablet 00:00: mouth in [place] 00 the Medical morning. Branch raloxifene 2021-0 Yes [id number] 60mg Take 1 [facility] nivers 60 mg 9-06 tablet by ity of tablet 00:00: mouth in [place] 00 the Medical morning. Branch raloxifene 2021-0 Yes [id number] 60mg Take 1 [facility] nivers 60 mg 9-06 tablet by ity of tablet 00:00: mouth in [place] 00 the Medical morning. Branch raloxifene 2021-0 Yes [id number] 60mg Take 1 [facility] nivers 60 mg 9-06 tablet by ity of tablet 00:00: mouth in [place] 00 the Medical morning. Branch montelukast 2021-0 3- No [id number] 10mg Take 1 [facility] (SINGULAIR) 9- 02-10 tablet by it y of 10 mg 00:00: 00:00 mouth in [place] tablet 00 :00 the Medical morning. Branch montelukast 2021-0 3- No [id number] 10mg Take 1 [facility] (SINGULAIR) 9- 02-10 tablet by it y of 10 mg 00:00: 00:00 mouth in [place] tablet 00 :00 the Medical morning. Branch metoprolol 2021- No [id number] 50mg Take 1 [facility] succinate 06-20 12-22 tablet by ity of XL 50 mg 24 00:00: 00:00 mouth in [place] hr tablet 00 :00 the Medical morning Branch and 1 tablet in the evening. omeprazole Yes [id number] 40mg Take 1 [facility] 40 mg 6-29 capsule by ity of capsule 00:00: mouth [place] 00 daily. Medical Branch omeprazole Yes [id number] 40mg Take 1 [facility] 40 mg 6-29 capsule by ity of capsule 00:00: mouth [place] 00 daily. Medical Branch omeprazole Yes [id number] 40mg Take 1 [facility] 40 mg 6-29 capsule by ity of capsule 00:00: mouth [place] 00 daily. Medical Branch omeprazole Yes [id number] 40mg Take 1 [facility] 40 mg 6-29 capsule by ity of capsule 00:00: mouth [place] 00 daily. Medical Branch omeprazole Yes [id number] 40mg Take 1 [facility] 40 mg 6-29 capsule by ity of capsule 00:00: mouth [place] 00 daily. Medical Branch omeprazole 0 Yes [id number] 40mg Take 1 [facility] 40 mg 6-29 capsule by ity of capsule 00:00: mouth [place] 00 daily. Medical Branch omeprazole Yes [id number] 40mg Take 1 [facility] 40 mg 6-29 capsule by ity of capsule 00:00: mouth [place] 00 daily. Medical Branch omeprazole 0 Yes [id number] 40mg Take 1 [facility] 40 mg 6-29 capsule by ity of capsule 00:00: mouth [place] 00 daily. Medical Branch omeprazole Yes [id number] 40mg Take 1 [facility] 40 mg 6-29 capsule by ity of capsule 00:00: mouth [place] 00 daily. Medical Branch omeprazole 0 Yes [id number] 40mg Take 1 [facility] 40 mg 6-29 capsule by ity of capsule 00:00: mouth [place] 00 daily. Medical Branch omeprazole 0 Yes [id number] 40mg Take 1 [facility] 40 mg 6-29 capsule by ity of capsule 00:00: mouth [place] 00 daily. Medical Branch omeprazole 2021- No [id number] 40mg Take 1 [facility] 40 mg 6-29 10-21 capsule by ity of capsule 00:00: 00:00 mouth [place] 00 :00 daily. [facility] vitamin 2022-0 Yes 1000ug Take 1,000 [facility] B-12 6-03 mcg by ity of (VITAMIN 11:12: mouth [place] B-12) 1,000 06 daily. Medica l mcg tablet Takes 3000 [facility] mcg daily Cholecalcif 2022-0 Yes 2000U Take 2,000 [facility], 6-03 Units by ity of Vitamin D3, 11:12: mouth [place] (VITAMIN 06 daily. Medical D3) 50 mcg Branch (2,000 unit) capsule vitamin 2022-0 Yes 1000ug Take 1,000 [facility] B-12 6-03 mcg by ity of (VITAMIN 11:12: mouth [place] B-12) 1,000 06 daily. Medica l mcg tablet Takes 3000 [facility] mcg daily Cholecalcif 2022-0 Yes 2000U Take 2,000 [facility], 6-03 Units by ity of Vitamin D3, 11:12: mouth [place] (VITAMIN 06 daily. Medical D3) 50 mcg Branch (2,000 unit) capsule vitamin 2022-0 Yes 1000ug Take 1,000 [facility] B-12 6-03 mcg by ity of (VITAMIN 11:12: mouth [place] B-12) 1,000 06 daily. Medica l mcg tablet Takes 3000 [facility] mcg daily Cholecalcif 2022-0 Yes 2000U Take 2,000 [facility], 6-03 Units by ity of Vitamin D3, 11:12: mouth [place] (VITAMIN 06 daily. Medical D3) 50 mcg Branch (2,000 unit) capsule vitamin 2022-0 Yes 1000ug Take 1,000 [facility] B-12 6-03 mcg by ity of (VITAMIN 11:12: mouth [place] B-12) 1,000 06 daily. Medica l mcg tablet Takes 3000 [facility] mcg daily Cholecalcif 2022-0 Yes 2000U Take 2,000 [facility], 6-03 Units by ity of Vitamin D3, 11:12: mouth [place] (VITAMIN 06 daily. Medical D3) 50 mcg Branch (2,000 unit) capsule vitamin 2022-0 Yes 1000ug Take 1,000 [facility] B-12 6-03 mcg by ity of (VITAMIN 11:12: mouth [place] B-12) 1,000 06 daily. Medica l mcg tablet Takes 3000 [facility] mcg daily Cholecalcif 2022-0 Yes 2000U Take 2,000 [facility], 6-03 Units by ity of Vitamin D3, 11:12: mouth [place] (VITAMIN 06 daily. Medical D3) 50 mcg Branch (2,000 unit) capsule vitamin 2022-0 Yes 1000ug Take 1,000 [facility] B-12 6-03 mcg by ity of (VITAMIN 11:12: mouth [place] B-12) 1,000 06 daily. Medica l mcg tablet Takes 3000 [facility] mcg daily Cholecalcif 2022-0 Yes 2000U Take 2,000 [facility], 6-03 Units by ity of Vitamin D3, 11:12: mouth [place] (VITAMIN 06 daily. Medical D3) 50 mcg Branch (2,000 unit) capsule vitamin 2022-0 Yes 1000ug Take 1,000 [facility] B-12 6-03 mcg by ity of (VITAMIN 11:12: mouth [place] B-12) 1,000 06 daily. Medica l mcg tablet Takes 3000 [facility] mcg daily Cholecalcif 2022-0 Yes 2000U Take 2,000 [facility], 6-03 Units by ity of Vitamin D3, 11:12: mouth [place] (VITAMIN 06 daily. Medical D3) 50 mcg Branch (2,000 unit) capsule vitamin 2022-0 Yes 1000ug Take 1,000 [facility] B-12 6-03 mcg by ity of (VITAMIN 11:12: mouth [place] B-12) 1,000 06 daily. Medica l mcg tablet Takes 3000 [facility] mcg daily Cholecalcif 2022-0 Yes 2000U Take 2,000 [facility], 6-03 Units by ity of Vitamin D3, 11:12: mouth [place] (VITAMIN 06 daily. Medical D3) 50 mcg Branch (2,000 unit) capsule vitamin 2022-0 Yes 1000ug Take 1,000 [facility] B-12 6-03 mcg by ity of (VITAMIN 11:12: mouth [place] B-12) 1,000 06 daily. Medica l mcg tablet Takes 3000 [facility] mcg daily Cholecalcif 2022-0 Yes 2000U Take 2,000 [facility], 6-03 Units by ity of Vitamin D3, 11:12: mouth [place] (VITAMIN 06 daily. Medical D3) 50 mcg Branch (2,000 unit) capsule vitamin 2022-0 Yes 1000ug Take 1,000 [facility] B-12 6-03 mcg by ity of (VITAMIN 11:12: mouth [place] B-12) 1,000 06 daily. Medica l mcg tablet Takes 3000 [facility] mcg daily Cholecalcif 2022-0 Yes 2000U Take 2,000 [facility], 6-03 Units by ity of Vitamin D3, 11:12: mouth [place] (VITAMIN 06 daily. Medical D3) 50 mcg Branch (2,000 unit) capsule vitamin 2022-0 Yes 1000ug Take 1,000 [facility] B-12 6-03 mcg by ity of (VITAMIN 11:12: mouth [place] B-12) 1,000 06 daily. Medica l mcg tablet Takes 3000 [facility] mcg daily Cholecalcif 2022-0 Yes 2000U Take 2,000 [facility], 6-03 Units by ity of Vitamin D3, 11:12: mouth [place] (VITAMIN 06 daily. Medical D3) 50 mcg Branch (2,000 unit) capsule vitamin 2022-0 Yes 1000ug Take 1,000 [facility] B-12 6-03 mcg by ity of (VITAMIN 11:12: mouth [place] B-12) 1,000 06 daily. Medica l mcg tablet Takes 3000 [facility] mcg daily Cholecalcif 2022-0 Yes 2000U Take 2,000 [facility], 6-03 Units by ity of Vitamin D3, 11:12: mouth [place] (VITAMIN 06 daily. Medical D3) 50 mcg Branch (2,000 unit) capsule vitamin 2022-0 Yes 1000ug Take 1,000 [facility] B-12 6-03 mcg by ity of (VITAMIN 11:12: mouth [place] B-12) 1,000 06 daily. Medica l mcg tablet Takes 3000 [facility] mcg daily Cholecalcif 2022-0 Yes 2000U Take 2,000 [facility], 6-03 Units by ity of Vitamin D3, 11:12: mouth [place] (VITAMIN 06 daily. Medical D3) 50 mcg Branch (2,000 unit) capsule vitamin 2022-0 Yes 1000ug Take 1,000 [facility] B-12 6-03 mcg by ity of (VITAMIN 11:12: mouth [place] B-12) 1,000 06 daily. Medica l mcg tablet Takes 3000 [facility] mcg daily Cholecalcif 2022-0 Yes 2000U Take 2,000 [facility], 6-03 Units by ity of Vitamin D3, 11:12: mouth [place] (VITAMIN 06 daily. Medical D3) 50 mcg Branch (2,000 unit) capsule vitamin 2022-0 Yes 1000ug Take 1,000 [facility] B-12 6-03 mcg by ity of (VITAMIN 11:12: mouth [place] B-12) 1,000 06 daily. Medica l mcg tablet Takes 3000 [facility] mcg daily Cholecalcif 2022-0 Yes 2000U Take 2,000 [facility], 6-03 Units by ity of Vitamin D3, 11:12: mouth [place] (VITAMIN 06 daily. Medical D3) 50 mcg Branch (2,000 unit) capsule vitamin 2022-0 Yes 1000ug Take 1,000 [facility] B-12 6-03 mcg by ity of (VITAMIN 11:12: mouth [place] B-12) 1,000 06 daily. Medica l mcg tablet Takes 3000 [facility] mcg daily Cholecalcif 2022-0 Yes 2000U Take 2,000 [facility], 6-03 Units by ity of Vitamin D3, 11:12: mouth [place] (VITAMIN 06 daily. Medical D3) 50 mcg Branch (2,000 unit) capsule vitamin 2022-0 Yes 1000ug Take 1,000 [facility] B-12 6-03 mcg by ity of (VITAMIN 11:12: mouth [place] B-12) 1,000 06 daily. Medica l mcg tablet Takes 3000 [facility] mcg daily Cholecalcif 2022-0 Yes 2000U Take 2,000 [facility], 6-03 Units by ity of Vitamin D3, 11:12: mouth [place] (VITAMIN 06 daily. Medical D3) 50 mcg Branch (2,000 unit) capsule vitamin 2022-0 Yes 1000ug Take 1,000 [facility] B-12 6-03 mcg by ity of (VITAMIN 11:12: mouth [place] B-12) 1,000 06 daily. Medica l mcg tablet Takes 3000 [facility] mcg daily Cholecalcif 2022-0 Yes 2000U Take 2,000 [facility], 6-03 Units by ity of Vitamin D3, 11:12: mouth [place] (VITAMIN 06 daily. Medical D3) 50 mcg Branch (2,000 unit) capsule vitamin 2022-0 Yes 1000ug Take 1,000 [facility] B-12 6-03 mcg by ity of (VITAMIN 11:12: mouth [place] B-12) 1,000 06 daily. Medica l mcg tablet Takes 3000 [facility] mcg daily Cholecalcif 2022-0 Yes 2000U Take 2,000 [facility], 6-03 Units by ity of Vitamin D3, 11:12: mouth [place] (VITAMIN 06 daily. Medical D3) 50 mcg Branch (2,000 unit) capsule vitamin 2022-0 Yes 1000ug Take 1,000 [facility] B-12 6-03 mcg by ity of (VITAMIN 11:12: mouth [place] B-12) 1,000 06 daily. Medica l mcg tablet Takes 3000 [facility] mcg daily Cholecalcif 2022-0 Yes 2000U Take 2,000 [facility], 6-03 Units by ity of Vitamin D3, 11:12: mouth [place] (VITAMIN 06 daily. Medical D3) 50 mcg Branch (2,000 unit) capsule vitamin 2022-0 Yes 1000ug Take 1,000 [facility] B-12 6-03 mcg by ity of (VITAMIN 11:12: mouth [place] B-12) 1,000 06 daily. Medica l mcg tablet Takes 3000 [facility] mcg daily Cholecalcif 2022-0 Yes 2000U Take 2,000 [facility], 6-03 Units by ity of Vitamin D3, 11:12: mouth [place] (VITAMIN 06 daily. Medical D3) 50 mcg Branch (2,000 unit) capsule vitamin 2022-0 Yes 1000ug Take 1,000 [facility] B-12 6-03 mcg by ity of (VITAMIN 11:12: mouth [place] B-12) 1,000 06 daily. Medica l mcg tablet Takes 3000 [facility] mcg daily Cholecalcif 2022-0 Yes 2000U Take 2,000 [facility], 6-03 Units by ity of Vitamin D3, 11:12: mouth [place] (VITAMIN 06 daily. Medical D3) 50 mcg Branch (2,000 unit) capsule vitamin 2022-0 Yes 1000ug Take 1,000 [facility] B-12 6-03 mcg by ity of (VITAMIN 11:12: mouth [place] B-12) 1,000 06 daily. Medica l mcg tablet Takes 3000 [facility] mcg daily Cholecalcif 2022-0 Yes 2000U Take 2,000 [facility], 6-03 Units by ity of Vitamin D3, 11:12: mouth [place] (VITAMIN 06 daily. Medical D3) 50 mcg Branch (2,000 unit) capsule vitamin 2022-0 Yes 1000ug Take 1,000 [facility] B-12 6-03 mcg by ity of (VITAMIN 11:12: mouth [place] B-12) 1,000 06 daily. Medica l mcg tablet Takes 3000 [facility] mcg daily Cholecalcif 2022-0 Yes 2000U Take 2,000 [facility], 6-03 Units by ity of Vitamin D3, 11:12: mouth [place] (VITAMIN 06 daily. Medical D3) 50 mcg Branch (2,000 unit) capsule vitamin 2022-0 Yes 1000ug Take 1,000 [facility] B-12 6-03 mcg by ity of (VITAMIN 11:12: mouth [place] B-12) 1,000 06 daily. Medica l mcg tablet Takes 3000 [facility] mcg daily Cholecalcif 2022-0 Yes 2000U Take 2,000 [facility], 6-03 Units by ity of Vitamin D3, 11:12: mouth [place] (VITAMIN 06 daily. Medical D3) 50 mcg Branch (2,000 unit) capsule vitamin 2022-0 Yes 1000ug Take 1,000 [facility] B-12 6-03 mcg by ity of (VITAMIN 11:12: mouth [place] B-12) 1,000 06 daily. Medica l mcg tablet Takes 3000 [facility] mcg daily Cholecalcif 2022-0 Yes 2000U Take 2,000 [facility], 6-03 Units by ity of Vitamin D3, 11:12: mouth [place] (VITAMIN 06 daily. Medical D3) 50 mcg Branch (2,000 unit) capsule vitamin 2022-0 Yes 1000ug Take 1,000 [facility] B-12 6-03 mcg by ity of (VITAMIN 11:12: mouth [place] B-12) 1,000 06 daily. Medica l mcg tablet Takes 3000 [facility] mcg daily Cholecalcif 2022-0 Yes 2000U Take 2,000 [facility], 6-03 Units by ity of Vitamin D3, 11:12: mouth [place] (VITAMIN 06 daily. Medical D3) 50 mcg Branch (2,000 unit) capsule vitamin 2022-0 Yes 1000ug Take 1,000 [facility] B-12 6-03 mcg by ity of (VITAMIN 11:12: mouth [place] B-12) 1,000 06 daily. Medica l mcg tablet Takes 3000 [facility] mcg daily Cholecalcif 2022-0 Yes 2000U Take 2,000 [facility], 6-03 Units by ity of Vitamin D3, 11:12: mouth [place] (VITAMIN 06 daily. Medical D3) 50 mcg Branch (2,000 unit) capsule Cholecalcif 2022-0 Yes 2000U Take 2,000 [facility], 6-03 Units by ity of Vitamin D3, 11:12: mouth [place] (VITAMIN 06 daily. Medical D3) 50 mcg Branch (2,000 unit) capsule Cholecalcif 2022-0 Yes 2000U Take 2,000 [facility], 6-03 Units by ity of Vitamin D3, 11:12: mouth [place] (VITAMIN 06 daily. Medical D3) 50 mcg Branch (2,000 unit) capsule Cholecalcif 2022-0 Yes 2000U Take 2,000 [facility], 6-03 Units by ity of Vitamin D3, 11:12: mouth [place] (VITAMIN 06 daily. Medical D3) 50 mcg Branch (2,000 unit) capsule Cholecalcif 2022-0 Yes 2000U Take 2,000 [facility], 6-03 Units by ity of Vitamin D3, 11:12: mouth [place] (VITAMIN 06 daily. Medical D3) 50 mcg Branch (2,000 unit) capsule Cholecalcif 2022-0 Yes 2000U Take 2,000 [facility], 6-03 Units by ity of Vitamin D3, 11:12: mouth [place] (VITAMIN 06 daily. Medical D3) 50 mcg Branch (2,000 unit) capsule Cholecalcif 2022-0 Yes 2000U Take 2,000 [facility], 6-03 Units by ity of Vitamin D3, 11:12: mouth [place] (VITAMIN 06 daily. Medical D3) 50 mcg Branch (2,000 unit) capsule aspirin 81 2021-0 Yes 81mg Take 81 mg [facility] mg tablet 5-03 by mouth ity of 10:26: daily. [place] 41 [facility] Branch rosuvastati 2021-0 Yes TAKE 1 [facility] 40 mg 5-03 TABLET BY ity of tablet 10:26: MOUTH [place] 41 EVERY DAY Medical FOR 90 Branch DAYS ascorbic 2021-0 Yes 500mg 500 mg [facility] acid 5-03 daily. ity of (VITAMIN C 10:26: [place] ORAL) 41 Medical Branch amLODIPine 0 Yes 2.5mg Take 2.5 [facility] 2.5 mg 5-03 mg by ity of tablet 10:26: mouth [place] 41 daily. Medical Branch aspirin 81 0 Yes 81mg Take 81 mg [facility] mg tablet 5-03 by mouth ity of 10:26: daily. [facility] rosuvastati 0 Yes TAKE 1 [facility] 40 mg 5-03 TABLET BY ity of tablet 10:26: MOUTH [place] 41 EVERY DAY Medical FOR 90 Branch DAYS ascorbic 2021-0 Yes 500mg 500 mg [facility] acid 5-03 daily. ity of (VITAMIN C 10:26: [place] ORAL) Medical [facility] amLODIPine 0 Yes 2.5mg Take 2.5 [facility] 2.5 mg 5-03 mg by ity of tablet 10:26: mouth [place] 41 daily. Medical Branch aspirin 81 0 Yes 81mg Take 81 mg [facility] mg tablet 5-03 by mouth ity of 10:26: daily. [facility] rosuvastati 0 Yes TAKE 1 [facility] 40 mg 5-03 TABLET BY ity of tablet 10:26: MOUTH [place] 41 EVERY DAY Medical FOR 90 Branch DAYS ascorbic 2021-0 Yes 500mg 500 mg [facility] acid 5-03 daily. ity of (VITAMIN C 10:26: [place] ORAL) 41 Medical Branch amLODIPine 0 Yes 2.5mg Take 2.5 [facility] 2.5 mg 5-03 mg by ity of tablet 10:26: mouth [place] 41 daily. Medical Branch aspirin 81 0 Yes 81mg Take 81 mg [facility] mg tablet 5-03 by mouth ity of 10:26: daily. [facility] rosuvastati 0 Yes TAKE 1 [facility] 40 mg 5-03 TABLET BY ity of tablet 10:26: MOUTH [place] 41 EVERY DAY Medical FOR 90 Branch DAYS ascorbic 2021-0 Yes 500mg 500 mg [facility] acid 5-03 daily. ity of (VITAMIN C 10:26: [place] ORAL) 41 Medical Branch amLODIPine 0 Yes 2.5mg Take 2.5 [facility] 2.5 mg 5-03 mg by ity of tablet 10:26: mouth [place] 41 daily. Medical Branch aspirin 81 2022-0 Yes 81mg Take 81 mg [facility] mg tablet 5-03 by mouth ity of 10:26: daily. [facility] rosuvastati Yes TAKE 1 [facility] 40 mg 5-03 TABLET BY ity of tablet 10:26: MOUTH [place] 41 EVERY DAY Medical FOR 90 Branch DAYS ascorbic 2021-0 Yes 500mg 500 mg [facility] acid 5-03 daily. ity of (VITAMIN C 10:26: [place] ORAL) 41 Medical Branch amLODIPine Yes 2.5mg Take 2.5 [facility] 2.5 mg 5-03 mg by ity of tablet 10:26: mouth [place] 41 daily. Medical Branch aspirin 81 Yes 81mg Take 81 mg [facility] mg tablet 5-03 by mouth ity of 10:26: daily. [facility] rosuvastati Yes TAKE 1 [facility] 40 mg 5-03 TABLET BY ity of tablet 10:26: MOUTH [place] 41 EVERY DAY Medical FOR 90 Branch DAYS ascorbic 0 Yes 500mg 500 mg [facility] acid 5-03 daily. ity of (VITAMIN C 10:26: [place] ORAL) Medical Branch amLODIPine Yes 2.5mg Take 2.5 [facility] 2.5 mg 5-03 mg by ity of tablet 10:26: mouth [place] 41 daily. Medical Branch aspirin 81 0 Yes 81mg Take 81 mg [facility] mg tablet 5-03 by mouth ity of 10:26: daily. [facility] rosuvastati Yes TAKE 1 [facility] 40 mg 5-03 TABLET BY ity of tablet 10:26: MOUTH [place] 41 EVERY DAY Medical FOR 90 Branch DAYS ascorbic 2021-0 Yes 500mg 500 mg [facility] acid 5-03 daily. ity of (VITAMIN C 10:26: [place] ORAL) Medical Branch amLODIPine Yes 2.5mg Take 2.5 [facility] 2.5 mg 5-03 mg by ity of tablet 10:26: mouth [place] 41 daily. Medical Branch aspirin 81 0 Yes 81mg Take 81 mg [facility] mg tablet 5-03 by mouth ity of 10:26: daily. [facility] rosuvastati 2022-0 Yes TAKE 1 [facility] 40 mg 5-03 TABLET BY ity of tablet 10:26: MOUTH [place] 41 EVERY DAY Medical FOR 90 Branch DAYS ascorbic 0 Yes 500mg 500 mg [facility] acid 5-03 daily. ity of (VITAMIN C 10:26: [place] ORAL) 41 Medical Branch amLODIPine Yes 2.5mg Take 2.5 [facility] 2.5 mg 5-03 mg by ity of tablet 10:26: mouth [place] 41 daily. Medical Branch aspirin 81 0 Yes 81mg Take 81 mg [facility] mg tablet 5-03 by mouth ity of 10:26: daily. [facility] rosuvastati Yes TAKE 1 [facility] 40 mg 5-03 TABLET BY ity of tablet 10:26: MOUTH [place] 41 EVERY DAY Medical FOR 90 Branch DAYS ascorbic 2021-0 Yes 500mg 500 mg [facility] acid 5-03 daily. ity of (VITAMIN C 10:26: [place] ORAL) 41 Medical Branch amLODIPine Yes 2.5mg Take 2.5 [facility] 2.5 mg 5-03 mg by ity of tablet 10:26: mouth [place] 41 daily. Medical Branch aspirin 81 0 Yes 81mg Take 81 mg [facility] mg tablet 5-03 by mouth ity of 10:26: daily. [facility] rosuvastati 0 Yes TAKE 1 [facility] 40 mg 5-03 TABLET BY ity of tablet 10:26: MOUTH [place] 41 EVERY DAY Medical FOR 90 Branch DAYS ascorbic 0 Yes 500mg 500 mg [facility] acid 5-03 daily. ity of (VITAMIN C 10:26: [place] ORAL) 41 Medical Branch amLODIPine 0 Yes 2.5mg Take 2.5 [facility] 2.5 mg 5-03 mg by ity of tablet 10:26: mouth [place] 41 daily. Medical Branch aspirin 81 0 Yes 81mg Take 81 mg [facility] mg tablet 5-03 by mouth ity of 10:26: daily. 41 [facility] Branch rosuvastati 0 Yes TAKE 1 [facility] 40 mg 5-03 TABLET BY ity of tablet 10:26: MOUTH [place] 41 EVERY DAY Medical FOR 90 Branch DAYS ascorbic 0 Yes 500mg 500 mg [facility] acid 5-03 daily. ity of (VITAMIN C 10:26: [place] ORAL) 41 Medical Branch amLODIPine Yes 2.5mg Take 2.5 [facility] 2.5 mg 5-03 mg by ity of tablet 10:26: mouth [place] 41 daily. Medical Branch aspirin 81 0 Yes 81mg Take 81 mg [facility] mg tablet 5-03 by mouth ity of 10:26: daily. [facility] rosuvastati Yes TAKE 1 [facility] 40 mg 5-03 TABLET BY ity of tablet 10:26: MOUTH [place] 41 EVERY DAY Medical FOR 90 Branch DAYS ascorbic 2021-0 Yes 500mg 500 mg [facility] acid 5-03 daily. ity of (VITAMIN C 10:26: [place] ORAL) [facility] Branch amLODIPine Yes 2.5mg Take 2.5 [facility] 2.5 mg 5-03 mg by ity of tablet 10:26: mouth [place] 41 daily. Medical Branch aspirin 81 0 Yes 81mg Take 81 mg [facility] mg tablet 5-03 by mouth ity of 10:26: daily. [facility] rosuvastati Yes TAKE 1 [facility] 40 mg 5-03 TABLET BY ity of tablet 10:26: MOUTH [place] 41 EVERY DAY Medical FOR 90 Branch DAYS ascorbic 2021-0 Yes 500mg 500 mg [facility] acid 5-03 daily. ity of (VITAMIN C 10:26: [place] ORAL) 41 Medical Branch amLODIPine Yes 2.5mg Take 2.5 [facility] 2.5 mg 5-03 mg by ity of tablet 10:26: mouth [place] 41 daily. Medical Branch aspirin 81 0 Yes 81mg Take 81 mg [facility] mg tablet 5-03 by mouth ity of 10:26: daily. [facility] rosuvastati Yes TAKE 1 [facility] 40 mg 5-03 TABLET BY ity of tablet 10:26: MOUTH [place] 41 EVERY DAY Medical FOR 90 Branch DAYS ascorbic 2021-0 Yes 500mg 500 mg [facility] acid 5-03 daily. ity of (VITAMIN C 10:26: [place] ORAL) 41 Medical Branch amLODIPine 0 Yes 2.5mg Take 2.5 [facility] 2.5 mg 5-03 mg by ity of tablet 10:26: mouth [place] 41 daily. Medical Branch aspirin 81 0 Yes 81mg Take 81 mg [facility] mg tablet 5-03 by mouth ity of 10:26: daily. [facility] rosuvastati Yes TAKE 1 [facility] 40 mg 5-03 TABLET BY ity of tablet 10:26: MOUTH [place] 41 EVERY DAY Medical FOR 90 Branch DAYS ascorbic 2021-0 Yes 500mg 500 mg [facility] acid 5-03 daily. ity of (VITAMIN C 10:26: [place] ORAL) [facility] amLODIPine 0 Yes 2.5mg Take 2.5 [facility] 2.5 mg 5-03 mg by ity of tablet 10:26: mouth [place] 41 daily. Medical Branch aspirin 81 0 Yes 81mg Take 81 mg [facility] mg tablet 5-03 by mouth ity of 10:26: daily. [facility] rosuvastati Yes TAKE 1 [facility] 40 mg 5-03 TABLET BY ity of tablet 10:26: MOUTH [place] 41 EVERY DAY Medical FOR 90 Branch DAYS ascorbic 2021-0 Yes 500mg 500 mg [facility] acid 5-03 daily. ity of (VITAMIN C 10:26: [place] ORAL) [facility] amLODIPine 0 Yes 2.5mg Take 2.5 [facility] 2.5 mg 5-03 mg by ity of tablet 10:26: mouth [place] 41 daily. Medical Branch aspirin 81 0 Yes 81mg Take 81 mg [facility] mg tablet 5-03 by mouth ity of 10:26: daily. [facility] rosuvastati Yes TAKE 1 [facility] 40 mg 5-03 TABLET BY ity of tablet 10:26: MOUTH [place] 41 EVERY DAY Medical FOR 90 Branch DAYS ascorbic 2021-0 Yes 500mg 500 mg [facility] acid 5-03 daily. ity of (VITAMIN C 10:26: [place] ORAL) 41 Medical Branch amLODIPine 0 Yes 2.5mg Take 2.5 [facility] 2.5 mg 5-03 mg by ity of tablet 10:26: mouth [place] 41 daily. Medical Branch aspirin 81 0 Yes 81mg Take 81 mg [facility] mg tablet 5-03 by mouth ity of 10:26: daily. [facility] rosuvastati Yes TAKE 1 [facility] 40 mg 5-03 TABLET BY ity of tablet 10:26: MOUTH [place] 41 EVERY DAY Medical FOR 90 Branch DAYS ascorbic 2021-0 Yes 500mg 500 mg [facility] acid 5-03 daily. ity of (VITAMIN C 10:26: [place] ORAL) 41 Medical Branch amLODIPine Yes 2.5mg Take 2.5 [facility] 2.5 mg 5-03 mg by ity of tablet 10:26: mouth [place] 41 daily. Medical Branch aspirin 81 0 Yes 81mg Take 81 mg [facility] mg tablet 5-03 by mouth ity of 10:26: daily. [facility] rosuvastati Yes TAKE 1 [facility] 40 mg 5-03 TABLET BY ity of tablet 10:26: MOUTH [place] 41 EVERY DAY Medical FOR 90 Branch DAYS ascorbic 0 Yes 500mg 500 mg [facility] acid 5-03 daily. ity of (VITAMIN C 10:26: [place] ORAL) [facility] Branch amLODIPine Yes 2.5mg Take 2.5 [facility] 2.5 mg 5-03 mg by ity of tablet 10:26: mouth [place] 41 daily. Medical Branch aspirin 81 0 Yes 81mg Take 81 mg [facility] mg tablet 5-03 by mouth ity of 10:26: daily. [facility] ascorbic 0 Yes 500mg 500 mg [facility] acid 5-03 daily. ity of (VITAMIN C 10:26: [place] ORAL) [facility] amLODIPine Yes 2.5mg Take 2.5 [facility] 2.5 mg 5-03 mg by ity of tablet 10:26: mouth [place] 41 daily. Medical Branch aspirin 81 0 Yes 81mg Take 81 mg [facility] mg tablet 5-03 by mouth ity of 10:26: daily. [facility] ascorbic 2021-0 Yes 500mg 500 mg [facility] acid 5-03 daily. ity of (VITAMIN C 10:26: [place] ORAL) 41 Medical Branch amLODIPine 0 Yes 2.5mg Take 2.5 [facility] 2.5 mg 5-03 mg by ity of tablet 10:26: mouth [place] 41 daily. Medical Branch aspirin 81 2021-0 Yes 81mg Take 81 mg [facility] mg tablet 5-03 by mouth ity of 10:26: daily. [facility] ascorbic 2021-0 Yes 500mg 500 mg [facility] acid 5-03 daily. ity of (VITAMIN C 10:26: [place] ORAL) [facility] amLODIPine 0 Yes 2.5mg Take 2.5 [facility] 2.5 mg 5-03 mg by ity of tablet 10:26: mouth [place] 41 daily. Medical [facility] aspirin 81 0 Yes 81mg Take 81 mg [facility] mg tablet 5-03 by mouth ity of 10:26: daily. [facility] ascorbic 2021-0 Yes 500mg 500 mg [facility] acid 5-03 daily. ity of (VITAMIN C 10:26: [place] ORAL) 41 [facility] Branch amLODIPine 0 Yes 2.5mg Take 2.5 [facility] 2.5 mg 5-03 mg by ity of tablet 10:26: mouth [place] 41 daily. [facility] aspirin 81 0 Yes 81mg Take 81 mg [facility] mg tablet 5-03 by mouth ity of 10:26: daily. [facility] ascorbic 2021-0 Yes 500mg 500 mg [facility] acid 5-03 daily. ity of (VITAMIN C 10:26: [place] ORAL) 41 [facility] Branch amLODIPine 0 Yes 2.5mg Take 2.5 [facility] 2.5 mg 5-03 mg by ity of tablet 10:26: mouth [place] 41 daily. Medical Branch aspirin 81 2021-0 Yes 81mg Take 81 mg [facility] mg tablet 5-03 by mouth ity of 10:26: daily. [facility] ascorbic 2021-0 Yes 500mg 500 mg [facility] acid 5-03 daily. ity of (VITAMIN C 10:26: [place] ORAL) 41 [facility] Branch amLODIPine 0 Yes 2.5mg Take 2.5 [facility] 2.5 mg 5-03 mg by ity of tablet 10:26: mouth [place] 41 daily. Medical Branch aspirin 81 2021-0 Yes 81mg Take 81 mg [facility] mg tablet 5-03 by mouth ity of 10:26: daily. [facility] ascorbic 2021-0 Yes 500mg 500 mg [facility] acid 5-03 daily. ity of (VITAMIN C 10:26: [place] ORAL) 41 [facility] Branch amLODIPine 0 Yes 2.5mg Take 2.5 [facility] 2.5 mg 5-03 mg by ity of tablet 10:26: mouth [place] 41 daily. Medical Branch aspirin 81 2021-0 Yes 81mg Take 81 mg [facility] mg tablet 5-03 by mouth ity of 10:26: daily. [facility] ascorbic 2021-0 Yes 500mg 500 mg [facility] acid 5-03 daily. ity of (VITAMIN C 10:26: [place] ORAL) 41 [facility] Branch amLODIPine 2021-0 Yes 2.5mg Take 2.5 [facility] 2.5 mg 5-03 mg by ity of tablet 10:26: mouth [place] 41 daily. [facility] Branch aspirin 81 0 Yes 81mg Take 81 mg [facility] mg tablet 5-03 by mouth ity of 10:26: daily. [facility] ascorbic 2021-0 Yes 500mg 500 mg [facility] acid 5-03 daily. ity of (VITAMIN C 10:26: [place] ORAL) 41 [facility] Branch amLODIPine 2021-0 Yes 2.5mg Take 2.5 [facility] 2.5 mg 5-03 mg by ity of tablet 10:26: mouth [place] 41 daily. Medical Branch aspirin 81 2021-0 Yes 81mg Take 81 mg [facility] mg tablet 5-03 by mouth ity of 10:26: daily. [facility] amLODIPine 2021-0 Yes 2.5mg Take 2.5 [facility] 2.5 mg 5-03 mg by ity of tablet 10:26: mouth [place] 41 daily. Medical Branch aspirin 81 2021-0 Yes 81mg Take 81 mg [facility] mg tablet 5-03 by mouth ity of 10:26: daily. [facility] amLODIPine 2021-0 Yes 2.5mg Take 2.5 [facility] 2.5 mg 5-03 mg by ity of tablet 10:26: mouth [place] 41 daily. Medical Branch aspirin 81 2021-0 Yes 81mg Take 81 mg [facility] mg tablet 5-03 by mouth ity of 10:26: daily. [facility] amLODIPine 2021-0 Yes 2.5mg Take 2.5 [facility] 2.5 mg 5-03 mg by ity of tablet 10:26: mouth [place] 41 daily. Medical Branch aspirin 81 2022-0 Yes 81mg Take 81 mg [facility] mg tablet 5-03 by mouth ity of 10:26: daily. [place] [id number] Medical Branch amLODIPine 2022-0 Yes 2.5mg Take 2.5 [facility] 2.5 mg 5-03 mg by ity of tablet 10:26: mouth [place] 41 daily. Medical Branch aspirin 81 2022-0 Yes 81mg Take 81 mg U nivers mg tablet 5-03 by mouth ity of 10:26: daily. [place] [id number] [facility] amLODIPine 2022-0 Yes 2.5mg Take 2.5 Un sarah 2.5 mg 5-03 mg by ity of tablet 10:26: mouth [place] 41 daily. [facility] aspirin 81 2-0 Yes 81mg Take 81 mg U nivers mg tablet 5-03 by mouth ity of 10:26: daily. [place] [id number] [facility] amLODIPine 2022-0 Yes 2.5mg Take 2.5 Un sarah 2.5 mg 5-03 mg by ity of tablet 10:26: mouth [place] 41 daily. [facility] Magnesium 2022-0 Yes 500mg Take 500 Uni vers Oxide 500 2-14 mg by ity of mg Tab 00:00: mouth. [place] [facility] Magnesium 2022-0 Yes 500mg Take 500 Uni vers Oxide 500 2-14 mg by ity of mg Tab 00:00: mouth. [place] [address] [facility] Magnesium 2022-0 Yes 500mg Take 500 Uni vers Oxide 500 2-14 mg by ity of mg Tab 00:00: mouth. [place] [facility] Magnesium 2022-0 Yes 500mg Take 500 Uni vers Oxide 500 2-14 mg by ity of mg Tab 00:00: mouth. [place] [facility] Magnesium 2022-0 Yes 500mg Take 500 Uni vers Oxide 500 2-14 mg by ity of mg Tab 00:00: mouth. [place] [facility] Magnesium 2022-0 Yes 500mg Take 500 Uni vers Oxide 500 2-14 mg by ity of mg Tab 00:00: mouth. [place] [address] [facility] Magnesium 2022-0 Yes 500mg Take 500 Uni vers Oxide 500 2-14 mg by ity of mg Tab 00:00: mouth. [place] [address] [facility] Magnesium 2022-0 Yes 500mg Take 500 Uni vers Oxide 500 2-14 mg by ity of mg Tab 00:00: mouth. [place] [facility] Magnesium 2022-0 Yes 500mg Take 500 Uni vers Oxide 500 2-14 mg by ity of mg Tab 00:00: mouth. [facility] Magnesium 2022-0 Yes 500mg Take 500 Uni vers Oxide 500 2-14 mg by ity of mg Tab 00:00: mouth. [facility] Magnesium 2022-0 Yes 500mg Take 500 Uni vers Oxide 500 2-14 mg by ity of mg Tab 00:00: mouth. [facility] Magnesium 2022-0 Yes 500mg Take 500 Uni vers Oxide 500 2-14 mg by ity of mg Tab 00:00: mouth. [facility] Magnesium 2022-0 Yes 500mg Take 500 Uni vers Oxide 500 2-14 mg by ity of mg Tab 00:00: mouth. [place] [facility] Magnesium 2022-0 Yes 500mg Take 500 Uni vers Oxide 500 2-14 mg by ity of mg Tab 00:00: mouth. [facility] Magnesium 2022-0 Yes 500mg Take 500 Uni vers Oxide 500 2-14 mg by ity of mg Tab 00:00: mouth. [facility] Magnesium 2022-0 Yes 500mg Take 500 Uni vers Oxide 500 2-14 mg by ity of mg Tab 00:00: mouth. [facility] Magnesium 2022-0 Yes 500mg Take 500 Uni vers Oxide 500 2-14 mg by ity of mg Tab 00:00: mouth. [facility] Magnesium 2022-0 Yes 500mg Take 500 Uni vers Oxide 500 2-14 mg by ity of mg Tab 00:00: mouth. [facility] Magnesium 2022-0 Yes 500mg Take 500 Uni vers Oxide 500 2-14 mg by ity of mg Tab 00:00: mouth. [facility] Magnesium 2022-0 Yes 500mg Take 500 Uni vers Oxide 500 2-14 mg by ity of mg Tab 00:00: mouth. [facility] Magnesium 2022-0 Yes 500mg Take 500 Uni vers Oxide 500 2-14 mg by ity of mg Tab 00:00: mouth. [place] [address] [facility] Magnesium 2022-0 Yes 500mg Take 500 Uni vers Oxide 500 2-14 mg by ity of mg Tab 00:00: mouth. [place] [address] [facility] Magnesium 2022-0 Yes 500mg Take 500 Uni vers Oxide 500 2-14 mg by ity of mg Tab 00:00: mouth. [facility] Magnesium 2022-0 Yes 500mg Take 500 Uni vers Oxide 500 2-14 mg by ity of mg Tab 00:00: mouth. [facility] Magnesium 2022-0 Yes 500mg Take 500 Uni vers Oxide 500 2-14 mg by ity of mg Tab 00:00: mouth. [facility] Magnesium 2022-0 Yes 500mg Take 500 Uni vers Oxide 500 2-14 mg by ity of mg Tab 00:00: mouth. [place] [facility] Magnesium 2022-0 Yes 500mg Take 500 Uni vers Oxide 500 2-14 mg by ity of mg Tab 00:00: mouth. [facility] Magnesium 2022-0 Yes 500mg Take 500 Uni vers Oxide 500 2-14 mg by ity of mg Tab 00:00: mouth. [facility] Magnesium 2022-0 2023- No 500mg Take 500 Un sarah Oxide 500 2-14 02-10 mg by ity of mg Tab 00:00: 00:00 mouth. [place] 00 :00 [facility] Magnesium 2022-0 2023- No 500mg Take 500 Un sarah Oxide 500 2-14 02-10 mg by ity of mg Tab 00:00: 00:00 mouth. [place] 00 :00 [facility] empaglifloz 2020-1 Yes 1{tbl} Take 1 Un sarah in 2-24 tablet by ity of (JARDIANCE) 00:00: mouth [place] 10 mg 00 daily. [facility] empaglifloz 2020- Yes 1{tbl} Take 1 Un sarah in 2-24 tablet by ity of (JARDIANCE) 00:00: mouth [place] 10 mg 00 daily. [facility] empaglifloz 2020-1 Yes 1{tbl} Take 1 Un sarah in 2-24 tablet by ity of (JARDIANCE) 00:00: mouth [place] 10 mg 00 daily. [facility] empaglifloz 2020- Yes 1{tbl} Take 1 Un sarah in 2-24 tablet by ity of (JARDIANCE) 00:00: mouth [place] 10 mg 00 daily. [facility] empaglifloz 2020- Yes 1{tbl} Take 1 Un sarah in 2-24 tablet by ity of (JARDIANCE) 00:00: mouth [place] 10 mg 00 daily. [facility] empaglifloz 2020- Yes 1{tbl} Take 1 Un sarah in 2-24 tablet by ity of (JARDIANCE) 00:00: mouth [place] 10 mg 00 daily. [facility] empaglifloz 2020- Yes 1{tbl} Take 1 Un sarah in 2-24 tablet by ity of (JARDIANCE) 00:00: mouth [place] 10 mg 00 daily. [facility] empaglifloz 2020- Yes 1{tbl} Take 1 Un sarah in 2-24 tablet by ity of (JARDIANCE) 00:00: mouth [place] 10 mg 00 daily. [facility] empaglifloz 2020- Yes 1{tbl} Take 1 Un sarah in 2-24 tablet by ity of (JARDIANCE) 00:00: mouth [place] 10 mg 00 daily. [facility] empaglifloz 2020- Yes 1{tbl} Take 1 Un sarah in 2-24 tablet by ity of (JARDIANCE) 00:00: mouth [place] 10 mg 00 daily. [facility] empaglifloz 2020- Yes 1{tbl} Take 1 Un sarah in 2-24 tablet by ity of (JARDIANCE) 00:00: mouth [place] 10 mg 00 daily. [facility] empaglifloz 2020- Yes 1{tbl} Take 1 Un sarah in 2-24 tablet by ity of (JARDIANCE) 00:00: mouth [place] 10 mg 00 daily. [facility] empaglifloz 2020- Yes 1{tbl} Take 1 Un sarah in 2-24 tablet by ity of (JARDIANCE) 00:00: mouth [place] 10 mg 00 daily. [facility] empaglifloz 2020- Yes 1{tbl} Take 1 Un sarah in 2-24 tablet by ity of (JARDIANCE) 00:00: mouth [place] 10 mg 00 daily. [facility] empaglifloz 2020- Yes 1{tbl} Take 1 Un sarah in 2-24 tablet by ity of (JARDIANCE) 00:00: mouth [place] 10 mg 00 daily. [facility] empaglifloz 2020- Yes 1{tbl} Take 1 Un sarah in 2-24 tablet by ity of (JARDIANCE) 00:00: mouth [place] 10 mg 00 daily. [facility] empaglifloz 2020-10 Yes 1{tbl} Take 1 Un sarah in 2-24 tablet by ity of (JARDIANCE) 00:00: mouth [place] 10 mg 00 daily. [facility] empaglifloz 2020-10 Yes 1{tbl} Take 1 Un sarah in 2-24 tablet by ity of (JARDIANCE) 00:00: mouth [place] 10 mg 00 daily. [facility] empaglifloz 2020-10 Yes 1{tbl} Take 1 Un sarah in 2-24 tablet by ity of (JARDIANCE) 00:00: mouth [place] 10 mg 00 daily. [facility] empaglifloz 2020- Yes 1{tbl} Take 1 Un sarah in 2-24 tablet by ity of (JARDIANCE) 00:00: mouth [place] 10 mg 00 daily. [facility] empaglifloz 2020- Yes 1{tbl} Take 1 Un sarah in 2-24 tablet by ity of (JARDIANCE) 00:00: mouth [place] 10 mg 00 daily. [facility] empaglifloz 2020-10 Yes 1{tbl} Take 1 Un sarah in 2-24 tablet by ity of (JARDIANCE) 00:00: mouth [place] 10 mg 00 daily. [facility] empaglifloz 2020- Yes 1{tbl} Take 1 Un sarah in 2-24 tablet by ity of (JARDIANCE) 00:00: mouth [place] 10 mg 00 daily. [facility] empaglifloz 2020- Yes 1{tbl} Take 1 Un sarah in 2-24 tablet by ity of (JARDIANCE) 00:00: mouth [place] 10 mg 00 daily. [facility] empaglifloz 2020- Yes 1{tbl} Take 1 Un sarah in 2-24 tablet by ity of (JARDIANCE) 00:00: mouth [place] 10 mg 00 daily. [facility] empaglifloz 2020- Yes 1{tbl} Take 1 Un sarah in 2-24 tablet by ity of (JARDIANCE) 00:00: mouth [place] 10 mg 00 daily. [facility] empaglifloz 2020- Yes 1{tbl} Take 1 Un sarah in 2-24 tablet by ity of (JARDIANCE) 00:00: mouth [place] 10 mg 00 daily. [facility] 2020-10 Yes 1{tbl} Take 1 Un sarah in 2-24 tablet by ity of (JARDIANCE) 00:00: mouth [place] 10 mg 00 daily. [facility] empaglifloz 2020-103- No 1{tbl} Take 1 U nivers in 2-24 02-10 tablet by ity of ([place]) 00:00: 00:00 mouth [place] 10 mg 00 :00 daily. [facility] empaglifloz 2020-10- No 1{tbl} Take 1 U nivers in 2-24 02-10 tablet by ity of ([place]) 00:00: 00:[place] 00 :00 daily. [facility] clopidogreL 2020-10 Yes 75mg Take 75 mg Univers 75 mg 2-16 by mouth ity of tablet 00:00: daily. [place] [facility] clopidogreL 2020-10 Yes 75mg Take 75 mg Univers 75 mg 2-16 by mouth ity of tablet 00:00: daily. [address] clopidogreL 2020-10 Yes 75mg Take 75 mg Univers 75 mg 2-16 by mouth ity of tablet 00:00: daily. [place] [facility] clopidogreL 2020-10 Yes 75mg Take 75 mg Univers 75 mg 2-16 by mouth ity of tablet 00:00: daily. [address] clopidogreL 2020-10 Yes 75mg Take 75 mg Univers 75 mg 2-16 by mouth ity of tablet 00:00: daily. [address] clopidogreL 2020- Yes 75mg Take 75 mg Univers 75 mg 2-16 by mouth ity of tablet 00:00: daily. [address] clopidogreL 2020- Yes 75mg Take 75 mg Univers 75 mg 2-16 by mouth ity of tablet 00:00: daily. [address] clopidogreL 2020- Yes 75mg Take 75 mg Univers 75 mg 2-16 by mouth ity of tablet 00:00: daily. [address] clopidogreL 2020- Yes 75mg Take 75 mg Univers 75 mg 2-16 by mouth ity of tablet 00:00: daily. [address] clopidogreL 2020- Yes 75mg Take 75 mg Univers 75 mg 2-16 by mouth ity of tablet 00:00: daily. [address] clopidogreL 2020- Yes 75mg Take 75 mg Univers 75 mg 2-16 by mouth ity of tablet 00:00: daily. [place] [facility] clopidogreL 2020- Yes 75mg Take 75 mg Univers 75 mg 2-16 by mouth ity of tablet 00:00: daily. [address] clopidogreL 2020- Yes 75mg Take 75 mg Univers 75 mg 2-16 by mouth ity of tablet 00:00: daily. [address] clopidogreL 2020- Yes 75mg Take 75 mg Univers 75 mg 2-16 by mouth ity of tablet 00:00: daily. [address] clopidogreL 2020- Yes 75mg Take 75 mg Univers 75 mg 2-16 by mouth ity of tablet 00:00: daily. [address] clopidogreL 2020- Yes 75mg Take 75 mg Univers 75 mg 2-16 by mouth ity of tablet 00:00: daily. [address] clopidogreL 2020- Yes 75mg Take 75 mg Univers 75 mg 2-16 by mouth ity of tablet 00:00: daily. [address] clopidogreL 2020- Yes 75mg Take 75 mg Univers 75 mg 2-16 by mouth ity of tablet 00:00: daily. [address] clopidogreL 2020- Yes 75mg Take 75 mg Univers 75 mg 2-16 by mouth ity of tablet 00:00: daily. [address] clopidogreL 2020- Yes 75mg Take 75 mg Univers 75 mg 2-16 by mouth ity of tablet 00:00: daily. [address] clopidogreL 2020- Yes 75mg Take 75 mg Univers 75 mg 2-16 by mouth ity of tablet 00:00: daily. [address] clopidogreL 2020- Yes 75mg Take 75 mg Univers 75 mg 2-16 by mouth ity of tablet 00:00: daily. [address] clopidogreL 2020-1 Yes 75mg Take 75 mg Univers 75 mg 2-16 by mouth ity of tablet 00:00: daily. [address] clopidogreL 2020-1 Yes 75mg Take 75 mg Univers 75 mg 2-16 by mouth ity of tablet 00:00: daily. [address] clopidogreL 2020-1 Yes 75mg Take 75 mg Univers 75 mg 2-16 by mouth ity of tablet 00:00: daily. [address] clopidogreL 2020- Yes 75mg Take 75 mg Univers 75 mg 2-16 by mouth ity of tablet 00:00: daily. [address] clopidogreL 2020- Yes 75mg Take 75 mg Univers 75 mg 2-16 by mouth ity of tablet 00:00: daily. [address] clopidogreL 2020- Yes 75mg Take 75 mg Univers 75 mg 2-16 by mouth ity of tablet 00:00: daily. [address] clopidogreL 2020- Yes 75mg Take 75 mg Univers 75 mg 2-16 by mouth ity of tablet 00:00: daily. [address] clopidogreL 2020- Yes 75mg Take 75 mg Univers 75 mg 2-16 by mouth ity of tablet 00:00: daily. [address] clopidogreL 2020- Yes 75mg Take 75 mg Univers 75 mg 2-16 by mouth ity of tablet 00:00: daily. [address] clopidogreL 2020- Yes 75mg Take 75 mg Univers 75 mg 2-16 by mouth ity of tablet 00:00: daily. [address] clopidogreL 2020- Yes 75mg Take 75 mg Univers 75 mg 2-16 by mouth ity of tablet 00:00: daily. [address] clopidogreL 2020- Yes 75mg Take 75 mg Univers 75 mg 2-16 by mouth ity of tablet 00:00: daily. [address] Bupivicaine Bupivicaine 2020-0 No Common [place] Ratcliff 3-16 Spirit 00:00: - [facility] Juan Jose Kenalog 2020-0 No 40mg Common (Triamcinol (Triamcinol 3-16 S pirit one) one) 00:00: - [facility] Bupivicaine Bupivicaine 1-0 No Common [place] Ratcliff 3-16 Spirit 00:00: - [facility] Kenalog Kenalog 2020-0 No 40mg Common (Triamcinol (Triamcinol 3-16 S pirit one) one) 00:00: - [facility] Bupivicaine Bupivicaine 2020-0 No 2.5mg Common [place] Ratcliff 3-16 Spirit 00:00: - [facility] Kenalog Kenalog 2020-0 No 40mg Common (Triamcinol (Triamcinol 3-16 S pirit one) one) 00:00: - [facility]I 00 [facility] Bupivicaine Bupivicaine 2020-0 No 5mL Common [place] Ratcliff 4-09 Spirit 00:00: - [facility] 00 [facility] Kenalog Kenalog 2020-0 No 40mg Common (Triamcinol (Triamcinol 4-09 S pirit one) one) 00:00: - [facility] 00 [facility] Bupivicaine Bupivicaine 2020-0 No 5mL Common [place] Rat[place]iff 4-09 Spirit 00:00: - [facility] 00 [facility] Kenalog Kenalog 2020-0 No 40mg Common (Triamcinol (Triamcinol 4-09 S pirit one) one) 00:00: - [facility] 00 [facility] Bupivicaine Bupivicaine 2020-0 No 5mL Common [place] Rat[place] 4-09 Spirit 00:00: - [facility] 00 [facility] Kenalog Kenalog 2020-0 No 40mg Common (Triamcinol (Triamcinol 4-09 S pirit one) one) 00:00: - [facility] 00 [facility] metFORMIN 2020-0 Yes 500mg Q.5D Take 500 Met hodi (GLUCOPHAGE 2-[address] ) 500 mg 10:49: mouth 2 Hospit a tablet 50 (two) l times a day with meals. metoprolol 2020-0 Yes 100mg QD Take 100 Me thodi succinate 2-[address] XL 10:49: mouth Hospita (TOPROL-XL) 50 daily. l 100 mg 24 hr tablet atorvastati 2020-0 Yes 40mg QD Take 40 mg Methodi n (LIPITOR) 2-[address] 40 MG 10:49: daily. Hospita tablet 50 l levothyroxi 2020-0 Yes 112ug QD Take 112 M ethodi ne 2-[address] (SYNTHROID) 10:49: mouth Hospi ta 112 mcg 50 daily. l tablet ranolazine 2020-0 Yes 1000mg Q.5D Take 1,000 [facility] (RANEXA) 2-[address] 500 MG 12 10:49: mouth 2 Hospi ta hr ER 50 (two) l tablet times a day. ferrous 2020-0 Yes 65mg QD Take 65 mg Meth lilli sulfate 2-[address] (IRON ORAL) 10:49: daily. Hosp keegan 50 l cyanocobala 2020-0 Yes 1{capsu QD Take 1 M ethodi min, 2-25 le} capsule by st vitamin 10:49: mouth Hospita B-12, 3,000 50 daily. l mcg capsule pyridoxine, 2020-0 Yes 100mg QD Take 100 M ethodi vitamin B6, 2-[address] (B-6) 100 10:49: mouth Hospita MG tablet 50 daily. l cholecalcif 2020-0 Yes 2000U QD Take 2,000 Methodi chavez, 2-[address] vitamin D3, 10:49: mouth Hospi ta (VITAMIN 50 daily. l D3) 50 mcg (2,000 unit) capsule capsule atorvastati 2020-0 Yes 40mg QD Take 40 mg Methodi n (LIPITOR) 2-[address] 40 MG 10:49: daily. Hospita tablet 50 l levothyroxi 2020-0 Yes 112ug QD Take 112 M ethodi ne 2-[address] (SYNTHROID) 10:49: mouth Hospi ta 112 mcg 50 daily. l tablet ranolazine 2020-0 Yes 1000mg Q.5D Take 1,000 [facility] (RANEXA) 2-[address] 500 MG 12 10:49: mouth 2 Hospi ta hr ER 50 (two) l tablet times a day. ferrous 2020-0 Yes 65mg QD Take 65 mg Meth lilli sulfate 2-[address] (IRON ORAL) 10:49: daily. Hosp keegan 50 l cyanocobala 2020-0 Yes 1{capsu QD Take 1 M ethodi min, 2-25 le} capsule by st vitamin 10:49: mouth Hospita B-12, 3,000 50 daily. l mcg capsule pyridoxine, 2020-0 Yes 100mg QD Take 100 M ethodi vitamin B6, 2-[address] (B-6) 100 10:49: mouth Hospita MG tablet 50 daily. l cholecalcif 2020-0 Yes 2000U QD Take 2,000 Methodi chavez, 2-[address] vitamin D3, 10:49: mouth Hospi ta (VITAMIN 50 daily. l D3) 50 mcg (2,000 unit) capsule capsule omeprazole 2020-0 Yes 40mg QD Take 40 mg M ethodi (PriLOSEC) 2-[address] 40 MG 10:49: daily. Hospita capsule 50 l metFORMIN 2020-0 Yes 500mg Q.5D Take 500 Met hodi (GLUCOPHAGE 2-[address] ) 500 mg 10:49: mouth 2 Hospit a tablet 50 (two) l times a day with meals. metoprolol 2020-0 Yes 100mg QD Take 100 Me thodi succinate 2-[address] XL 10:49: mouth [facility]ospita (TOPROL-XL) 50 daily. l 100 mg 24 hr tablet omeprazole 2020-0 Yes 40mg QD Take 40 mg M ethodi (PriLOSEC) 2-[address] 40 MG 10:49: daily. Hospita capsule 50 l empaglifloz 2020-0 Yes 10mg QD Take 1 Meth lilli in 2-25 tablet (10 st (JARDIANCE) 00:00: mg total) H ospita 10 mg 00 by mouth l tablet daily. tablet empaglifloz 2020-0 Yes 10mg QD Take 1 Meth lilli in 2-25 tablet (10 st (JARDIANCE) 00:00: mg total) H ospita 10 mg 00 by mouth l tablet daily. tablet empaglifloz 2020-0 Yes 10mg QD Take 1 Meth lilli in 2-25 tablet (10 st (JARDIANCE) 00:00: mg total) H ospita 10 mg 00 by mouth l tablet daily. tablet empaglifloz 2020-0 Yes 10mg QD Take 1 Meth lilli in 2-25 tablet (10 st (JARDIANCE) 00:00: mg total) H ospita 10 mg 00 by mouth l tablet daily. tablet naloxone 2020-0 Yes .2mg [facility] (NARCAN) 2-24 st 0.4 mg/mL 16:12: Hospita injection 14 l 0.2 mg naloxone 2020-0 Yes .2mg [facility] (NARCAN) 2-24 st 0.4 mg/mL 16:12: Hospita injection 14 l 0.2 mg Omeprazole Omeprazole 2020-0 Yes Na Mendoza 1 capsule Common 1-16 Spirit 00:00: - [facility] Furosemide Furosemide 2018-0 Yes Na Mendoza 1 tablet Common 7 Spirit 00:00: - [facility] 00 [facility] Synthroid Synthroid 2018-0 Yes Na Mendoza 1 tablet Common 3 on an Spirit 00:00: empty - [facility]I 00 stomach in [facility] Lipitor Lipitor Yes Na Mendoza 1 tablet Co mmon [facility] Aspir-81 Aspir-81 Yes Na Mendoza 1 tablet Common [facility] Furosemide Furosemide Yes Na Mendoza 1 tablet Common [facility] Metoprolol Metoprolol Yes Na Mendoza 1 tablet Common Succinate Succinate Spiri t ER ER - [facility] Metformin Metformin Yes Na Mendoza 1 tablet Common HCl HCl with meals [facility] Losartan Losartan Yes Na Mendoza 1 tablet Common Potassium Potassium Spiri [facility] Nexium Nexium Yes Na Mendoza TAKE ONE Comm on CAPSULE BY [facility] EVERY DAY [facility] Jardiance Jardiance No Jardiance Rosuvastati Rosuvastati No Rosuvastat n Calcium n Calcium in Calcium 40 MG 40 MG 40 MG Furosemide Furosemide No 1{table QD Furosemide 40 MG 40 MG t} 40 MG Metformin Metformin No 1{table BID Metformin HCl 500 MG HCl 500 MG t_with_ HCl 500 MG meals} Omeprazole Omeprazole No Omeprazole 40 MG 40 MG 40 MG Nexium 40 Nexium 40 No Nexium 40 MG MG MG Metoprolol Metoprolol No 1{table QD Metoprolol Succinate Succinate t} Succinate ER 100 MG ER 100 MG ER 100 MG Levothyroxi Levothyroxi No Levothyrox ne Sodium ne Sodium ine Sodium Prevagen Prevagen No Prevagen Clopidogrel Clopidogrel No Clopidogre Bisulfate Bisulfate l Bisulfate Aspir-81 81 Aspir-81 81 No 1{table QD Aspir-81 MG MG t} 81 MG Vitamin C Vitamin C No Vitamin C Omeprazole Omeprazole No 1{capsu QD Omeprazole 40 MG 40 MG le} 40 MG Vitamin B-6 Vitamin B-6 No Vitamin B-6 Losartan Losartan No 1{table QD Losartan Potassium Potassium t} Potassium 50 MG 50 MG 50 MG Rosuvastati Rosuvastati No 1{table QD Rosuvastat n Calcium n Calcium t} in Calcium 40 MG 40 MG 40 MG Synthroid Synthroid No QD Synthroid 112 MCG 112 MCG 112 MCG Esomeprazol Esomeprazol No Esomeprazo e Magnesium e Magnesium le 40 MG 40 MG Magnesium 40 MG Aspirin Aspirin No Aspirin Vitamin D3 Vitamin D3 No Vitamin D3 Furosemide Furosemide No 1{table QD Furosemide 40 MG 40 MG t} 40 MG Omeprazole Omeprazole No Omeprazole 40 MG 40 MG 40 MG Jardiance Jardiance No Jardiance Metoprolol Metoprolol No 1{table QD Metoprolol Succinate Succinate t} Succinate ER 100 MG ER 100 MG ER 100 MG Metformin Metformin No 1{table BID Metformin HCl 500 MG HCl 500 MG t_with_ HCl 500 MG meals} Furosemide Furosemide No 1{table QD Furosemide 40 MG 40 MG t} 40 MG Nexium 40 Nexium 40 No Nexium 40 MG MG MG Esomeprazol Esomeprazol No Esomeprazo e Magnesium e Magnesium le 40 MG 40 MG Magnesium 40 MG Levothyroxi Levothyroxi No Levothyrox ne Sodium ne Sodium ine Sodium Prevagen Prevagen No Prevagen Clopidogrel Clopidogrel No Clopidogre Bisulfate Bisulfate l Bisulfate Aspir-81 81 Aspir-81 81 No 1{table QD Aspir-81 MG MG t} 81 MG Vitamin C Vitamin C No Vitamin C Omeprazole Omeprazole No 1{capsu QD Omeprazole 40 MG 40 MG le} 40 MG Vitamin B-6 Vitamin B-6 No Vitamin B-6 Vitamin D3 Vitamin D3 No Vitamin D3 Synthroid Synthroid No QD Synthroid 112 MCG 112 MCG 112 MCG Losartan Losartan No 1{table QD Losartan Potassium Potassium t} Potassium 50 MG 50 MG 50 MG Aspirin Aspirin No Aspirin Rosuvastati Rosuvastati No Rosuvastat n Calcium n Calcium in Calcium 40 MG 40 MG 40 MG Furosemide Furosemide No 1{table QD Furosemide 40 MG 40 MG t} 40 MG Omeprazole Omeprazole No Omeprazole 40 MG 40 MG 40 MG Jardiance Jardiance No Jardiance Metoprolol Metoprolol No 1{table QD Metoprolol Succinate Succinate t} Succinate ER 100 MG ER 100 MG ER 100 MG metFORMIN metFORMIN No 1{table BID metFORMIN HCl 500 MG HCl 500 MG t_with_ HCl 500 MG meals} Furosemide Furosemide No 1{table QD Furosemide 40 MG 40 MG t} 40 MG NexIUM 40 NexIUM 40 No NexIUM 40 MG MG MG Esomeprazol Esomeprazol No Esomeprazo e Magnesium e Magnesium le 40 MG 40 MG Magnesium 40 MG Levothyroxi Levothyroxi No Levothyrox ne Sodium ne Sodium ine Sodium Prevagen Prevagen No Prevagen Clopidogrel Clopidogrel No Clopidogre Bisulfate Bisulfate l Bisulfate Aspir-81 81 Aspir-81 81 No 1{table QD Aspir-81 MG MG t} 81 MG Vitamin C Vitamin C No Vitamin C Omeprazole Omeprazole No 1{capsu QD Omeprazole 40 MG 40 MG le} 40 MG Vitamin B-6 Vitamin B-6 No Vitamin B-6 Vitamin D3 Vitamin D3 No Vitamin D3 Synthroid Synthroid No QD Synthroid 112 MCG 112 MCG 112 MCG Losartan Losartan No 1{table QD Losartan Potassium Potassium t} Potassium 50 MG 50 MG 50 MG Aspirin Aspirin No Aspirin Rosuvastati Rosuvastati No Rosuvastat n Calcium n Calcium in Calcium 40 MG 40 MG 40 MG Furosemide Furosemide No 1{table QD Furosemide 40 MG 40 MG t} 40 MG Rosuvastati Rosuvastati No 1{table QD Rosuvastat n Calcium n Calcium t} in Calcium 40 MG 40 MG 40 MG Furosemide Furosemide No 1{table QD Furosemide 40 MG 40 MG t} 40 MG metFORMIN metFORMIN No 1{table BID metFORMIN HCl 500 MG HCl 500 MG t_with_ HCl 500 MG meals} Omeprazole Omeprazole No 1{capsu QD Omeprazole 40 MG 40 MG le} 40 MG Vitamin B-6 Vitamin B-6 No Vitamin B-6 Prevagen Prevagen No Prevagen Rosuvastati Rosuvastati No Rosuvastat n Calcium n Calcium in Calcium 40 MG 40 MG 40 MG Esomeprazol Esomeprazol No Esomeprazo e Magnesium e Magnesium le 40 MG 40 MG Magnesium 40 MG Metoprolol Metoprolol No 1{table QD Metoprolol Succinate Succinate t} Succinate ER 100 MG ER 100 MG ER 100 MG Furosemide Furosemide No 1{table QD Furosemide 40 MG 40 MG t} 40 MG Omeprazole Omeprazole No Omeprazole 40 MG 40 MG 40 MG Aspirin Aspirin No Aspirin Vitamin D3 Vitamin D3 No Vitamin D3 Losartan Losartan No 1{table QD Losartan Potassium Potassium t} Potassium 50 MG 50 MG 50 MG Vitamin C Vitamin C No Vitamin C Jardiance Jardiance No Jardiance Jardiance Jardiance No Jardiance 10 MG 10 MG 10 MG Prolia 60 Prolia 60 No Prolia 60 MG/ML MG/ML MG/ML Synthroid Synthroid No QD Synthroid 112 MCG 112 MCG 112 MCG Aspir-81 81 Aspir-81 81 No 1{table QD Aspir-81 MG MG t} 81 MG NexIUM 40 NexIUM 40 No NexIUM 40 MG MG MG Levothyroxi Levothyroxi No Levothyrox ne Sodium ne Sodium ine Sodium Clopidogrel Clopidogrel No Clopidogre Bisulfate Bisulfate l Bisulfate Furosemide Furosemide No 1{table QD Furosemide 40 MG 40 MG t} 40 MG Clopidogrel Clopidogrel No Clopidogre Bisulfate Bisulfate l Bisulfate metFORMIN metFORMIN No 1{table BID metFORMIN HCl 500 MG HCl 500 MG t_with_ HCl 500 MG meals} Rosuvastati Rosuvastati No Rosuvastat n Calcium n Calcium in Calcium 40 MG 40 MG 40 MG Rosuvastati Rosuvastati No 1{table QD Rosuvastat n Calcium n Calcium t} in Calcium 40 MG 40 MG 40 MG Prevagen Prevagen No Prevagen Synthroid Synthroid No QD Synthroid 112 MCG 112 MCG 112 MCG Aspirin Aspirin No Aspirin Vitamin B-6 Vitamin B-6 No Vitamin B-6 Furosemide Furosemide No 1{table QD Furosemide 40 MG 40 MG t} 40 MG Losartan Losartan No 1{table QD Losartan Potassium Potassium t} Potassium 50 MG 50 MG 50 MG Esomeprazol Esomeprazol No Esomeprazo e Magnesium e Magnesium le 40 MG 40 MG Magnesium 40 MG Omeprazole Omeprazole No Omeprazole 40 MG 40 MG 40 MG Levothyroxi Levothyroxi No Levothyrox ne Sodium ne Sodium ine Sodium Jardiance Jardiance No Jardiance Metoprolol Metoprolol No 1{table QD Metoprolol Succinate Succinate t} Succinate ER 100 MG ER 100 MG ER 100 MG NexIUM 40 NexIUM 40 No NexIUM 40 MG MG MG Prolia 60 Prolia 60 No Prolia 60 MG/ML MG/ML MG/ML Jardiance Jardiance No Jardiance 10 MG 10 MG 10 MG Vitamin D3 Vitamin D3 No Vitamin D3 Vitamin C Vitamin C No Vitamin C Omeprazole Omeprazole No 1{capsu QD Omeprazole 40 MG 40 MG le} 40 MG Aspir-81 81 Aspir-81 81 No 1{table QD Aspir-81 MG MG t} 81 MG Furosemide Furosemide No 1{table QD Furosemide 40 MG 40 MG t} 40 MG Clopidogrel Clopidogrel No Clopidogre Bisulfate Bisulfate l Bisulfate metFORMIN metFORMIN No 1{table BID metFORMIN HCl 500 MG HCl 500 MG t_with_ HCl 500 MG meals} Rosuvastati Rosuvastati No Rosuvastat n Calcium n Calcium in Calcium 40 MG 40 MG 40 MG Rosuvastati Rosuvastati No 1{table QD Rosuvastat n Calcium n Calcium t} in Calcium 40 MG 40 MG 40 MG Prevagen Prevagen No Prevagen Furosemide Furosemide No 1{table QD Furosemide 40 MG 40 MG t} 40 MG Aspirin Aspirin No Aspirin Losartan Losartan No 1{table QD Losartan Potassium Potassium t} Potassium 50 MG 50 MG 50 MG Vitamin B-6 Vitamin B-6 No Vitamin B-6 Vitamin C Vitamin C No Vitamin C Esomeprazol Esomeprazol No Esomeprazo e Magnesium e Magnesium le 40 MG 40 MG Magnesium 40 MG Omeprazole Omeprazole No Omeprazole 40 MG 40 MG 40 MG Levothyroxi Levothyroxi No Levothyrox ne Sodium ne Sodium ine Sodium Jardiance Jardiance No Jardiance Metoprolol Metoprolol No 1{table QD Metoprolol Succinate Succinate t} Succinate ER 100 MG ER 100 MG ER 100 MG NexIUM 40 NexIUM 40 No NexIUM 40 MG MG MG Prolia 60 Prolia 60 No Prolia 60 MG/ML MG/ML MG/ML Jardiance Jardiance No Jardiance 10 MG 10 MG 10 MG Vitamin D3 Vitamin D3 No Vitamin D3 Levothyroxi Levothyroxi No Levothyrox ne Sodium ne Sodium ine Sodium 112 MCG 112 MCG 112 MCG Omeprazole Omeprazole No 1{capsu QD Omeprazole 40 MG 40 MG le} 40 MG Aspir-81 81 Aspir-81 81 No 1{table QD Aspir-81 MG MG t} 81 MG Jardiance Jardiance No Jardiance 10 MG 10 MG 10 MG Aspirin Aspirin No Aspirin metFORMIN metFORMIN No 1{table BID metFORMIN HCl 500 MG HCl 500 MG t_with_ HCl 500 MG meals} Aspir-81 81 Aspir-81 81 No 1{table QD Aspir-81 MG MG t} 81 MG Furosemide Furosemide No 1{table QD Furosemide 40 MG 40 MG t} 40 MG Jardiance Jardiance No Jardiance Prolia 60 Prolia 60 No Prolia 60 MG/ML MG/ML MG/ML Clopidogrel Clopidogrel No Clopidogre Bisulfate Bisulfate l Bisulfate Vitamin B-6 Vitamin B-6 No Vitamin B-6 NexIUM 40 NexIUM 40 No NexIUM 40 MG MG MG Losartan Losartan No 1{table QD Losartan Potassium Potassium t} Potassium 50 MG 50 MG 50 MG Levothyroxi Levothyroxi No Levothyrox ne Sodium ne Sodium ine Sodium Omeprazole Omeprazole No 1{capsu QD Omeprazole 40 MG 40 MG le} 40 MG Omeprazole Omeprazole No Omeprazole 40 MG 40 MG 40 MG Prevagen Prevagen No Prevagen Metoprolol Metoprolol No 1{table QD Metoprolol Succinate Succinate t} Succinate ER 100 MG ER 100 MG ER 100 MG Levothyroxi Levothyroxi No Levothyrox ne Sodium ne Sodium ine Sodium 112 MCG 112 MCG 112 MCG Rosuvastati Rosuvastati No 1{table QD Rosuvastat n Calcium n Calcium t} in Calcium 40 MG 40 MG 40 MG Furosemide Furosemide No 1{table QD Furosemide 40 MG 40 MG t} 40 MG Vitamin D3 Vitamin D3 No Vitamin D3 Vitamin C Vitamin C No Vitamin C Esomeprazol Esomeprazol No Esomeprazo e Magnesium e Magnesium le 40 MG 40 MG Magnesium 40 MG Rosuvastati Rosuvastati No Rosuvastat n Calcium n Calcium in Calcium 40 MG 40 MG 40 MG Prevagen Prevagen No Prevagen Levothyroxi Levothyroxi No Levothyrox ne Sodium ne Sodium ine Sodium 112 MCG 112 MCG 112 MCG Rosuvastati Rosuvastati No 1{table QD Rosuvastat n Calcium n Calcium t} in Calcium 40 MG 40 MG 40 MG Esomeprazol Esomeprazol No Esomeprazo e Magnesium e Magnesium le 40 MG 40 MG Magnesium 40 MG Jardiance Jardiance No Jardiance Vitamin D3 Vitamin D3 No Vitamin D3 Rosuvastati Rosuvastati No Rosuvastat n Calcium n Calcium in Calcium 40 MG 40 MG 40 MG Losartan Losartan No 1{table QD Losartan Potassium Potassium t} Potassium 50 MG 50 MG 50 MG Aspir-81 81 Aspir-81 81 No 1{table QD Aspir-81 MG MG t} 81 MG metFORMIN metFORMIN No 1{table BID metFORMIN HCl 500 MG HCl 500 MG t_with_ HCl 500 MG meals} Metoprolol Metoprolol No 1{table QD Metoprolol Succinate Succinate t} Succinate ER 100 MG ER 100 MG ER 100 MG Synthroid Synthroid No QD Synthroid 112 MCG 112 MCG 112 MCG Jardiance Jardiance No Jardiance 10 MG 10 MG 10 MG Aspirin Aspirin No Aspirin Furosemide Furosemide No 1{table QD Furosemide 40 MG 40 MG t} 40 MG Prolia 60 Prolia 60 No Prolia 60 MG/ML MG/ML MG/ML NexIUM 40 NexIUM 40 No NexIUM 40 MG MG MG Vitamin B-6 Vitamin B-6 No Vitamin B-6 Vitamin C Vitamin C No Vitamin C Clopidogrel Clopidogrel No Clopidogre Bisulfate Bisulfate l Bisulfate Omeprazole Omeprazole No Omeprazole 40 MG 40 MG 40 MG Omeprazole Omeprazole No 1{capsu QD Omeprazole 40 MG 40 MG le} 40 MG Levothyroxi Levothyroxi No Levothyrox ne Sodium ne Sodium ine Sodium Furosemide Furosemide No 1{table QD Furosemide 40 MG 40 MG t} 40 MG Rosuvastati Rosuvastati No Rosuvastat n Calcium n Calcium in Calcium 40 MG 40 MG 40 MG Levothyroxi Levothyroxi No Levothyrox ne Sodium ne Sodium ine Sodium 112 MCG 112 MCG 112 MCG Prevagen Prevagen No Prevagen Esomeprazol Esomeprazol No Esomeprazo e Magnesium e Magnesium le 40 MG 40 MG Magnesium 40 MG Jardiance Jardiance No Jardiance Vitamin D3 Vitamin D3 No Vitamin D3 Jardiance Jardiance No Jardiance 10 MG 10 MG 10 MG Losartan Losartan No 1{table QD Losartan Potassium Potassium t} Potassium 50 MG 50 MG 50 MG Aspir-81 81 Aspir-81 81 No 1{table QD Aspir-81 MG MG t} 81 MG metFORMIN metFORMIN No 1{table BID metFORMIN HCl 500 MG HCl 500 MG t_with_ HCl 500 MG meals} Metoprolol Metoprolol No 1{table QD Metoprolol Succinate Succinate t} Succinate ER 100 MG ER 100 MG ER 100 MG Synthroid Synthroid No QD Synthroid 112 MCG 112 MCG 112 MCG Vitamin C Vitamin C No Vitamin C Aspirin Aspirin No Aspirin Furosemide Furosemide No 1{table QD Furosemide 40 MG 40 MG t} 40 MG Furosemide Furosemide No 1{table QD Furosemide 40 MG 40 MG t} 40 MG NexIUM 40 NexIUM 40 No NexIUM 40 MG MG MG Vitamin B-6 Vitamin B-6 No Vitamin B-6 Prolia 60 Prolia 60 No Prolia 60 MG/ML MG/ML MG/ML Clopidogrel Clopidogrel No Clopidogre Bisulfate Bisulfate l Bisulfate Omeprazole Omeprazole No Omeprazole 40 MG 40 MG 40 MG Omeprazole Omeprazole No 1{capsu QD Omeprazole 40 MG 40 MG le} 40 MG Levothyroxi Levothyroxi No Levothyrox ne Sodium ne Sodium ine Sodium Rosuvastati Rosuvastati No 1{table QD Rosuvastat n Calcium n Calcium t} in Calcium 40 MG 40 MG 40 MG Rosuvastati Rosuvastati No Rosuvastat n Calcium n Calcium in Calcium 40 MG 40 MG 40 MG Levothyroxi Levothyroxi No Levothyrox ne Sodium ne Sodium ine Sodium 112 MCG 112 MCG 112 MCG Prevagen Prevagen No Prevagen Esomeprazol Esomeprazol No Esomeprazo e Magnesium e Magnesium le 40 MG 40 MG Magnesium 40 MG Jardiance Jardiance No Jardiance Vitamin D3 Vitamin D3 No Vitamin D3 Jardiance Jardiance No Jardiance 10 MG 10 MG 10 MG Losartan Losartan No 1{table QD Losartan Potassium Potassium t} Potassium 50 MG 50 MG 50 MG Aspir-81 81 Aspir-81 81 No 1{table QD Aspir-81 MG MG t} 81 MG metFORMIN metFORMIN No 1{table BID metFORMIN HCl 500 MG HCl 500 MG t_with_ HCl 500 MG meals} Metoprolol Metoprolol No 1{table QD Metoprolol Succinate Succinate t} Succinate ER 100 MG ER 100 MG ER 100 MG Synthroid Synthroid No QD Synthroid 112 MCG 112 MCG 112 MCG Vitamin C Vitamin C No Vitamin C Aspirin Aspirin No Aspirin Furosemide Furosemide No 1{table QD Furosemide 40 MG 40 MG t} 40 MG Furosemide Furosemide No 1{table QD Furosemide 40 MG 40 MG t} 40 MG NexIUM 40 NexIUM 40 No NexIUM 40 MG MG MG Vitamin B-6 Vitamin B-6 No Vitamin B-6 Prolia 60 Prolia 60 No Prolia 60 MG/ML MG/ML MG/ML Clopidogrel Clopidogrel No Clopidogre Bisulfate Bisulfate l Bisulfate Omeprazole Omeprazole No Omeprazole 40 MG 40 MG 40 MG Omeprazole Omeprazole No 1{capsu QD Omeprazole 40 MG 40 MG le} 40 MG Levothyroxi Levothyroxi No Levothyrox ne Sodium ne Sodium ine Sodium Rosuvastati Rosuvastati No 1{table QD Rosuvastat n Calcium n Calcium t} in Calcium 40 MG 40 MG 40 MG Rosuvastati Rosuvastati No Rosuvastat n Calcium n Calcium in Calcium 40 MG 40 MG 40 MG Levothyroxi Levothyroxi No Levothyrox ne Sodium ne Sodium ine Sodium 112 MCG 112 MCG 112 MCG Prevagen Prevagen No Prevagen Esomeprazol Esomeprazol No Esomeprazo e Magnesium e Magnesium le 40 MG 40 MG Magnesium 40 MG Jardiance Jardiance No Jardiance Vitamin D3 Vitamin D3 No Vitamin D3 Jardiance Jardiance No Jardiance 10 MG 10 MG 10 MG Losartan Losartan No 1{table QD Losartan Potassium Potassium t} Potassium 50 MG 50 MG 50 MG Aspir-81 81 Aspir-81 81 No 1{table QD Aspir-81 MG MG t} 81 MG metFORMIN metFORMIN No 1{table BID metFORMIN HCl 500 MG HCl 500 MG t_with_ HCl 500 MG meals} Metoprolol Metoprolol No 1{table QD Metoprolol Succinate Succinate t} Succinate ER 100 MG ER 100 MG ER 100 MG Synthroid Synthroid No QD Synthroid 112 MCG 112 MCG 112 MCG Vitamin C Vitamin C No Vitamin C Aspirin Aspirin No Aspirin Furosemide Furosemide No 1{table QD Furosemide 40 MG 40 MG t} 40 MG Furosemide Furosemide No 1{table QD Furosemide 40 MG 40 MG t} 40 MG NexIUM 40 NexIUM 40 No NexIUM 40 MG MG MG Vitamin B-6 Vitamin B-6 No Vitamin B-6 Prolia 60 Prolia 60 No Prolia 60 MG/ML MG/ML MG/ML Clopidogrel Clopidogrel No Clopidogre Bisulfate Bisulfate l Bisulfate Omeprazole Omeprazole No Omeprazole 40 MG 40 MG 40 MG Omeprazole Omeprazole No 1{capsu QD Omeprazole 40 MG 40 MG le} 40 MG Levothyroxi Levothyroxi No Levothyrox ne Sodium ne Sodium ine Sodium Rosuvastati Rosuvastati No 1{table QD Rosuvastat n Calcium n Calcium t} in Calcium 40 MG 40 MG 40 MG Rosuvastati Rosuvastati No Rosuvastat n Calcium n Calcium in Calcium 40 MG 40 MG 40 MG Levothyroxi Levothyroxi No Levothyrox ne Sodium ne Sodium ine Sodium 112 MCG 112 MCG 112 MCG Prevagen Prevagen No Prevagen Esomeprazol Esomeprazol No Esomeprazo e Magnesium e Magnesium le 40 MG 40 MG Magnesium 40 MG Jardiance Jardiance No Jardiance Vitamin D3 Vitamin D3 No Vitamin D3 Jardiance Jardiance No Jardiance 10 MG 10 MG 10 MG Losartan Losartan No 1{table QD Losartan Potassium Potassium t} Potassium 50 MG 50 MG 50 MG Aspir-81 81 Aspir-81 81 No 1{table QD Aspir-81 MG MG t} 81 MG metFORMIN metFORMIN No 1{table BID metFORMIN HCl 500 MG HCl 500 MG t_with_ HCl 500 MG meals} Metoprolol Metoprolol No 1{table QD Metoprolol Succinate Succinate t} Succinate ER 100 MG ER 100 MG ER 100 MG Synthroid Synthroid No QD Synthroid 112 MCG 112 MCG 112 MCG Vitamin C Vitamin C No Vitamin C Aspirin Aspirin No Aspirin Furosemide Furosemide No 1{table QD Furosemide 40 MG 40 MG t} 40 MG Furosemide Furosemide No 1{table QD Furosemide 40 MG 40 MG t} 40 MG NexIUM 40 NexIUM 40 No NexIUM 40 MG MG MG Vitamin B-6 Vitamin B-6 No Vitamin B-6 Prolia 60 Prolia 60 No Prolia 60 MG/ML MG/ML MG/ML Clopidogrel Clopidogrel No Clopidogre Bisulfate Bisulfate l Bisulfate Omeprazole Omeprazole No Omeprazole 40 MG 40 MG 40 MG Omeprazole Omeprazole No 1{capsu QD Omeprazole 40 MG 40 MG le} 40 MG Levothyroxi Levothyroxi No Levothyrox ne Sodium ne Sodium ine Sodium Rosuvastati Rosuvastati No 1{table QD Rosuvastat n Calcium n Calcium t} in Calcium 40 MG 40 MG 40 MG Rosuvastati Rosuvastati No Rosuvastat n Calcium n Calcium in Calcium 40 MG 40 MG 40 MG Levothyroxi Levothyroxi No Levothyrox ne Sodium ne Sodium ine Sodium 112 MCG 112 MCG 112 MCG Prevagen Prevagen No Prevagen Esomeprazol Esomeprazol No Esomeprazo e Magnesium e Magnesium le 40 MG 40 MG Magnesium 40 MG Jardiance Jardiance No Jardiance Vitamin D3 Vitamin D3 No Vitamin D3 Jardiance Jardiance No Jardiance 10 MG 10 MG 10 MG Losartan Losartan No 1{table QD Losartan Potassium Potassium t} Potassium 50 MG 50 MG 50 MG Aspir-81 81 Aspir-81 81 No 1{table QD Aspir-81 MG MG t} 81 MG metFORMIN metFORMIN No 1{table BID metFORMIN HCl 500 MG HCl 500 MG t_with_ HCl 500 MG meals} Metoprolol Metoprolol No 1{table QD Metoprolol Succinate Succinate t} Succinate ER 100 MG ER 100 MG ER 100 MG Synthroid Synthroid No QD Synthroid 112 MCG 112 MCG 112 MCG Vitamin C Vitamin C No Vitamin C Aspirin Aspirin No Aspirin Furosemide Furosemide No 1{table QD Furosemide 40 MG 40 MG t} 40 MG Furosemide Furosemide No 1{table QD Furosemide 40 MG 40 MG t} 40 MG NexIUM 40 NexIUM 40 No NexIUM 40 MG MG MG Vitamin B-6 Vitamin B-6 No Vitamin B-6 Prolia 60 Prolia 60 No Prolia 60 MG/ML MG/ML MG/ML Clopidogrel Clopidogrel No Clopidogre Bisulfate Bisulfate l Bisulfate Omeprazole Omeprazole No Omeprazole 40 MG 40 MG 40 MG Omeprazole Omeprazole No 1{capsu QD Omeprazole 40 MG 40 MG le} 40 MG Levothyroxi Levothyroxi No Levothyrox ne Sodium ne Sodium ine Sodium Rosuvastati Rosuvastati No 1{table QD Rosuvastat n Calcium n Calcium t} in Calcium 40 MG 40 MG 40 MG Vitamin B-6 Vitamin B-6 No Vitamin B-6 NexIUM 40 NexIUM 40 No NexIUM 40 MG MG MG Losartan Losartan No 1{table QD Losartan Potassium Potassium t} Potassium 50 MG 50 MG 50 MG Magnesium Magnesium No Magnesium Oxide 500 Oxide 500 Oxide 500 MG MG MG Vitamin C Vitamin C No Vitamin C Metoprolol Metoprolol No 1{table QD Metoprolol Succinate Succinate t} Succinate ER 100 MG ER 100 MG ER 100 MG Levothyroxi Levothyroxi No Levothyrox ne Sodium ne Sodium ine Sodium metFORMIN metFORMIN No 1{table BID metFORMIN HCl 500 MG HCl 500 MG t_with_ HCl 500 MG meals} Furosemide Furosemide No 1{table QD Furosemide 40 MG 40 MG t} 40 MG Rosuvastati Rosuvastati No 1{table QD Rosuvastat n Calcium n Calcium t} in Calcium 40 MG 40 MG 40 MG Synthroid Synthroid No QD Synthroid 112 MCG 112 MCG 112 MCG Aspir-81 81 Aspir-81 81 No 1{table QD Aspir-81 MG MG t} 81 MG Esomeprazol Esomeprazol No Esomeprazo e Magnesium e Magnesium le 40 MG 40 MG Magnesium 40 MG Omeprazole Omeprazole No 1{capsu QD Omeprazole 40 MG 40 MG le} 40 MG Prolia 60 Prolia 60 No Prolia 60 MG/ML MG/ML MG/ML Aspirin Aspirin No Aspirin Jardiance Jardiance No Jardiance Prevagen Prevagen No Prevagen Vitamin D3 Vitamin D3 No Vitamin D3 Clopidogrel Clopidogrel No Clopidogre Bisulfate Bisulfate l Bisulfate Rosuvastati Rosuvastati No Rosuvastat n Calcium n Calcium in Calcium 40 MG 40 MG 40 MG Jardiance Jardiance No Jardiance 10 MG 10 MG 10 MG Levothyroxi Levothyroxi No Levothyrox ne Sodium ne Sodium ine Sodium 112 MCG 112 MCG 112 MCG Omeprazole Omeprazole No Omeprazole 40 MG 40 MG 40 MG Furosemide Furosemide No 1{table QD Furosemide 40 MG 40 MG t} 40 MG Vitamin B-6 Vitamin B-6 No Vitamin B-6 NexIUM 40 NexIUM 40 No NexIUM 40 MG MG MG Losartan Losartan No 1{table QD Losartan Potassium Potassium t} Potassium 50 MG 50 MG 50 MG Magnesium Magnesium No Magnesium Oxide 500 Oxide 500 Oxide 500 MG MG MG Vitamin C Vitamin C No Vitamin C Metoprolol Metoprolol No 1{table QD Metoprolol Succinate Succinate t} Succinate ER 100 MG ER 100 MG ER 100 MG Levothyroxi Levothyroxi No Levothyrox ne Sodium ne Sodium ine Sodium metFORMIN metFORMIN No 1{table BID metFORMIN HCl 500 MG HCl 500 MG t_with_ HCl 500 MG meals} Furosemide Furosemide No 1{table QD Furosemide 40 MG 40 MG t} 40 MG Rosuvastati Rosuvastati No 1{table QD Rosuvastat n Calcium n Calcium t} in Calcium 40 MG 40 MG 40 MG Synthroid Synthroid No QD Synthroid 112 MCG 112 MCG 112 MCG Aspir-81 81 Aspir-81 81 No 1{table QD Aspir-81 MG MG t} 81 MG Esomeprazol Esomeprazol No Esomeprazo e Magnesium e Magnesium le 40 MG 40 MG Magnesium 40 MG Omeprazole Omeprazole No 1{capsu QD Omeprazole 40 MG 40 MG le} 40 MG Prolia 60 Prolia 60 No Prolia 60 MG/ML MG/ML MG/ML Aspirin Aspirin No Aspirin Jardiance Jardiance No Jardiance Prevagen Prevagen No Prevagen Vitamin D3 Vitamin D3 No Vitamin D3 Clopidogrel Clopidogrel No Clopidogre Bisulfate Bisulfate l Bisulfate Rosuvastati Rosuvastati No Rosuvastat n Calcium n Calcium in Calcium 40 MG 40 MG 40 MG Jardiance Jardiance No Jardiance 10 MG 10 MG 10 MG Levothyroxi Levothyroxi No Levothyrox ne Sodium ne Sodium ine Sodium 112 MCG 112 MCG 112 MCG Omeprazole Omeprazole No Omeprazole 40 MG 40 MG 40 MG Furosemide Furosemide No 1{table QD Furosemide 40 MG 40 MG t} 40 MG Rosuvastati Rosuvastati No Rosuvastat n Calcium n Calcium in Calcium 40 MG 40 MG 40 MG Jardiance Jardiance No Jardiance 10 MG 10 MG 10 MG metFORMIN metFORMIN No 1{table BID metFORMIN HCl 500 MG HCl 500 MG t_with_ HCl 500 MG meals} Levothyroxi Levothyroxi No Levothyrox ne Sodium ne Sodium ine Sodium Esomeprazol Esomeprazol No Esomeprazo e Magnesium e Magnesium le 40 MG 40 MG Magnesium 40 MG Furosemide Furosemide No 1{table QD Furosemide 40 MG 40 MG t} 40 MG Aspirin Aspirin No Aspirin Furosemide Furosemide No 1{table QD Furosemide 40 MG 40 MG t} 40 MG Levothyroxi Levothyroxi No Levothyrox ne Sodium ne Sodium ine Sodium 112 MCG 112 MCG 112 MCG Omeprazole Omeprazole No 1{capsu QD Omeprazole 40 MG 40 MG le} 40 MG Clopidogrel Clopidogrel No Clopidogre Bisulfate Bisulfate l Bisulfate Prevagen Prevagen No Prevagen Vitamin B-6 Vitamin B-6 No Vitamin B-6 Losartan Losartan No 1{table QD Losartan Potassium Potassium t} Potassium 50 MG 50 MG 50 MG Prolia 60 Prolia 60 No Prolia 60 MG/ML MG/ML MG/ML Metoprolol Metoprolol No 1{table QD Metoprolol Succinate Succinate t} Succinate ER 100 MG ER 100 MG ER 100 MG Magnesium Magnesium No Magnesium Oxide 500 Oxide 500 Oxide 500 MG MG MG Vitamin D3 Vitamin D3 No Vitamin D3 Omeprazole Omeprazole No Omeprazole 40 MG 40 MG 40 MG Jardiance Jardiance No Jardiance NexIUM 40 NexIUM 40 No NexIUM 40 MG MG MG Synthroid Synthroid No QD Synthroid 112 MCG 112 MCG 112 MCG Aspir-81 81 Aspir-81 81 No 1{table QD Aspir-81 MG MG t} 81 MG Vitamin C Vitamin C No Vitamin C Immunizations Ordered Filled Immunization Date Status Comments Sour e Immunization Name Name Influenza Virus 2022-07-31 Completed [facility] Influenza Virus 2022-07-31 Completed [facility] 65+ Influenza Virus 2022-07-31 Completed [facility] 65+ Influenza Virus 2022-07-31 Completed [facility] 65+ Influenza Virus 2022-07-31 Completed [facility] 65+ Influenza Virus 2022-07-31 Completed [facility] 65+ Influenza Virus 2022-07-31 Completed [facility] 65+ Influenza Virus 2022-07-31 Completed [facility] 65+ Influenza Virus 2022-07-31 Completed [facility]+ Influenza Virus 2022-07-31 Completed [facility] 65+ Influenza Virus 2022-07-31 Completed [facility] 65+ Influenza Virus 2022-07-31 Completed [facility] 65+ Influenza Virus 2022-07-31 Completed [facility] 65+ Influenza Virus 2022-07-31 Completed [facility] 65+ Influenza Virus 2022-07-31 Completed [facility] 65+ Influenza Virus 2022-07-31 Completed [facility] 00:00:[facility] 65+ Influenza Virus 2022-07-31 Completed [facility]+ Influenza Virus 2022-07-31 Completed [facility]+ Influenza Virus 2022-07-31 Completed [facility] 00:[facility] 65+ Influenza Virus 2022-07-31 Completed [facility] 00:[facility]+ Influenza Virus 2022-07-31 Completed [facility] 00:[facility]+ Influenza Virus 2022-07-31 Completed [facility] 00:00:[facility]+ Influenza Virus 2022-07-31 Completed [facility]+ Influenza Virus 2022-07-31 Completed [facility] 00:[facility]:00 [facility] 65+ Influenza Virus 2022-07-31 Completed [facility] 00:00:00 [facility] 65+ Influenza Virus 2022-07-31 Completed [facility] 00:00:00 [facility] 65+ Influenza Virus 2022-07-31 Completed [facility] 00:00:00 [facility] 65+ Influenza Virus 2022-07-31 Completed [facility] 00:00:00 [facility] 65+ Influenza Virus 2022-07-31 Completed [facility] 00:00:00 [facility]+ Influenza Virus 2022-07-31 Completed [facility]00 [facility]+ SARS-COV-2 COVID-19 2022-07-03 Completed [facility] BIVALENT 0.3ML, IM, (PFIZER SERNA TOP BOOSTER) SARS-COV-2 COVID-19 2022-07-03 Completed [facility] 00:00:00 [facility] BIVALENT 0.3ML, IM, (PFIZER SERNA TOP BOOSTER) SARS-COV-2 COVID-19 2022-07-03 Completed [facility] 00:00:00 [facility] Y[facility] BIVALENT 0.3ML, IM, (PFIZER SERNA TOP BOOSTER) SARS-COV-2 COVID-19 2022-07-03 Completed [facility] 00:00:00 [facility] Y[facility]+, [facility] BIVALENT 0.3ML, IM, (PFIZER SERNA TOP BOOSTER) SARS-COV-2 COVID-19 2022-07-03 Completed [facility] 00:00:00 [facility] Y[facility]+, [facility] BIVALENT 0.3ML, IM, (PFIZER SERNA TOP BOOSTER) SARS-COV-2 COVID-19 2022-07-03 Completed [facility] 00:00:00 [facility] Y[facility]+, [facility] BIVALENT 0.3ML, IM, (PFIZER SERNA TOP BOOSTER) SARS-COV-2 COVID-19 2022-07-03 Completed [facility] 00:00:00 [facility] Y[facility]+, [facility] BIVALENT 0.3ML, IM, (PFIZER SERNA TOP BOOSTER) SARS-COV-2 COVID-19 2022-07-03 Completed [facility] 00:00:00 [facility] Y[facility]+, [facility] BIVALENT 0.3ML, IM, (PFIZER SERNA TOP BOOSTER) SARS-COV-2 COVID-19 2022-07-03 Completed [facility] 00:00:00 [facility] Y[facility]+, [facility] BIVALENT 0.3ML, IM, (PFIZER SERNA TOP BOOSTER) SARS-COV-2 COVID-19 2022-07-03 Completed [facility] 00:00:00 [facility] Y[facility]+, [facility] BIVALENT 0.3ML, IM, (PFIZER SERNA TOP BOOSTER) SARS-COV-2 COVID-19 2022-07-03 Completed [facility] 00:00:00 [facility] Y[facility]+, [facility] BIVALENT 0.3ML, IM, (PFIZER SERNA TOP BOOSTER) SARS-COV-2 COVID-19 2022-07-03 Completed [facility] 00:00:00 [facility] Y[facility]+, [facility] BIVALENT 0.3ML, IM, (PFIZER SERNA TOP BOOSTER) SARS-COV-2 COVID-19 2022-07-03 Completed [facility] 00:00:00 [facility] Y[facility]+, [facility] BIVALENT 0.3ML, IM, (PFIZER SERNA TOP BOOSTER) SARS-COV-2 COVID-19 2022-07-03 Completed [facility] 00:00:00 [facility] Y[facility]+, [facility] BIVALENT 0.3ML, IM, (PFIZER SERNA TOP BOOSTER) SARS-COV-2 COVID-19 2022-07-03 Completed [facility] 00:00:00 [facility] Y[facility]+, [facility] BIVALENT 0.3ML, IM, (PFIZER SERNA TOP BOOSTER) SARS-COV-2 COVID-19 2022-07-03 Completed [facility] 00:00:00 [facility] Y[facility]+, [facility] BIVALENT 0.3ML, IM, (PFIZER SERNA TOP BOOSTER) SARS-COV-2 COVID-19 2022-07-03 Completed [facility] 00:00:00 [facility] Y[facility]+, [facility] BIVALENT 0.3ML, IM, (PFIZER SERNA TOP BOOSTER) SARS-COV-2 COVID-19 2022-07-03 Completed [facility] 00:00:00 [facility] Y[facility]+, [facility] BIVALENT 0.3ML, IM, (PFIZER SERNA TOP BOOSTER) SARS-COV-2 COVID-19 2022-07-03 Completed [facility] 00:00:00 [facility] V[facility] 12 YRS+, Branch BIVALENT 0.3ML, IM, (PFIZER SERNA TOP BOOSTER) SARS-COV-2 COVID-19 2022-07-03 Completed [facility] 00:00:00 [facility] 12 YRS+, Branch BIVALENT 0.3ML, IM, (PFIZER SERNA TOP BOOSTER) SARS-COV-2 COVID-19 2022-07-03 Completed [facility] 00:00:00 [facility] 12 Y[facility]+, Branch BIVALENT 0.3ML, IM, (PFIZER SERNA TOP BOOSTER) SARS-COV-2 COVID-19 2022-07-03 Completed [facility] of PATRICIA-SUCROSE 00:00:00 [place] [facility] BIVALENT 0.3ML, IM, (PFIZER SERNA TOP BOOSTER) SARS-COV-2 COVID-19 2022-07-03 Completed [facility] PATRICIA-SUCROSE 00:00:00 [place] [facility] BIVALENT 0.3ML, IM, (PFIZER SERNA TOP BOOSTER) SARS-COV-2 COVID-19 2022-07-03 Completed [facility] PATRICIA-SUCROSE 00:00:00 [place] [facility] Y[facility]+, Branch BIVALENT 0.3ML, IM, (PFIZER SERNA TOP BOOSTER) SARS-COV-2 COVID-19 2022-07-03 Completed [facility] PATRICIA-SUCROSE 00:00:00 [place] [facility] Y[facility]+, Branch BIVALENT 0.3ML, IM, (PFIZER SERNA TOP BOOSTER) SARS-COV-2 COVID-19 2022-07-03 Completed [facility] PATRICIA-SUCROSE 00:00:00 [place] [facility] Y[facility]+, Branch BIVALENT 0.3ML, IM, (PFIZER SERNA TOP BOOSTER) SARS-COV-2 COVID-19 2022-07-03 Completed [facility] PATRICIA-SUCROSE 00:00:00 [place] [facility] Y[facility]+, Branch BIVALENT 0.3ML, IM, (PFIZER SERNA TOP BOOSTER) SARS-COV-2 COVID-19 2022-07-03 Completed [facility] PATRICIA-SUCROSE 00:00:00 [place] [facility] YRS+, Branch BIVALENT 0.3ML, IM, (PFIZER SERNA TOP BOOSTER) SARS-COV-2 COVID-19 2022-07-03 Completed [facility] PATRICIA-SUCROSE 00:00:00 [place] [facility] YRS+, Branch BIVALENT 0.3ML, IM, (PFIZER SERNA TOP BOOSTER) SARS-COV-2 COVID-19 2022-07-03 Completed [facility] PATRICIA-SUCROSE 00:00:00 [place] [facility] 12 YRS+, Branch BIVALENT 0.3ML, IM, (PFIZER SERNA TOP BOOSTER) SARS-COV-2 COVID-19 2022-07-03 Completed [facility] PATRICIA-SUCROSE 00:00:00 [place] [facility] YRS+, Branch BIVALENT 0.3ML, IM, (PFIZER SERNA TOP BOOSTER) SARS-COV-2 COVID-19 2022-07-03 Completed [facility] PATRICIA-SUCROSE 00:00:00 [place] [facility] YRS+, Branch BIVALENT 0.3ML, IM, (PFIZER SERNA TOP BOOSTER) SARS-COV-2 COVID-19 2022-07-03 Completed [facility] PATRICIA-SUCROSE 00:00:00 [place] [facility] Y[facility]+, Branch BIVALENT 0.3ML, IM, (PFIZER SERNA TOP BOOSTER) SARS-COV-2 COVID-19 2022-01-30 Completed [facility] of MODERNA 12+ YRS 00:00:00 [place] [facility] SARS-COV-2 COVID-19 2022-01-30 Completed [facility] of MODERNA 12+ YRS 00:00:00 [place] [facility] SARS-COV-2 COVID-19 2022-01-30 Completed [facility] of MODERNA 12+ YRS 00:00:00 [place] [facility] SARS-COV-2 COVID-19 2022-01-30 Completed [facility] of MODERNA 12+ YRS 00:00:00 [place] [facility] SARS-COV-2 COVID-19 2022-01-30 Completed [facility] of MODERNA 12+ YRS 00:00:00 [place] [facility] SARS-COV-2 COVID-19 2022-01-30 Completed [facility] of MODERNA 12+ YRS 00:00:00 [place] [facility] SARS-COV-2 COVID-19 2022-01-30 Completed [facility] of MODERNA 12+ YRS 00:00:00 [place] [facility] SARS-COV-2 COVID-19 2022-01-30 Completed [facility] of MODERNA 12+ YRS 00:00:00 [place] [facility] SARS-COV-2 COVID-19 2022-01-30 Completed [facility] of MODERNA 12+ YRS 00:00:00 [place] [facility] SARS-COV-2 COVID-19 2022-01-30 Completed [facility] of MODERNA 12+ YRS 00:00:00 [place] [facility] SARS-COV-2 COVID-19 2022-01-30 Completed [facility] of MODERNA 12+ YRS 00:00:00 [place] [facility] SARS-COV-2 COVID-19 2022-01-30 Completed [facility] of MODERNA 12+ YRS 00:00:00 [place] [facility] SARS-COV-2 COVID-19 2022-01-30 Completed [facility] of MODERNA 12+ YRS 00:00:00 [place] [facility] SARS-COV-2 COVID-19 2022-01-30 Completed [facility] of MODERNA 12+ YRS 00:00:00 [place] [facility] SARS-COV-2 COVID-19 2022-01-30 Completed [facility] of MODERNA 12+ YRS 00:00:00 [place] [facility] SARS-COV-2 COVID-19 2022-01-30 Completed [facility] of MODERNA 12+ YRS 00:00:00 [place] [facility] SARS-COV-2 COVID-19 2022-01-30 Completed [facility] of MODERNA 12+ YRS 00:00:00 [place] [facility] SARS-COV-2 COVID-19 2022-01-30 Completed [facility] of MODERNA 12+ YRS 00:00:00 [place] [facility] SARS-COV-2 COVID-19 2022-01-30 Completed [facility] of MODERNA 12+ YRS 00:00:00 [place] [facility] SARS-COV-2 COVID-19 2022-01-30 Completed [facility] of MODERNA 12+ YRS 00:00:00 [place] [facility] SARS-COV-2 COVID-19 2022-01-30 Completed [facility] of MODERNA 12+ YRS 00:00:00 [place] [facility] SARS-COV-2 COVID-19 2022-01-30 Completed [facility] of MODERNA 12+ YRS 00:00:00 [place] [facility] SARS-COV-2 COVID-19 2022-01-30 Completed [facility] of MODERNA 12+ YRS 00:00:00 [place] [facility] SARS-COV-2 COVID-19 2022-01-30 Completed [facility] of MODERNA 12+ YRS 00:00:00 [place] [facility] SARS-COV-2 COVID-19 2022-01-30 Completed [facility] of MODERNA 12+ YRS 00:00:00 [place] [facility] SARS-COV-2 COVID-19 2022-01-30 Completed [facility] of MODERNA 12+ YRS 00:00:00 [place] [facility] SARS-COV-2 COVID-19 2022-01-30 Completed [facility] of MODERNA 12+ YRS 00:00:00 [place] [facility] SARS-COV-2 COVID-19 2022-01-30 Completed [facility] of MODERNA 12+ YRS 00:00:00 [place] [facility] SARS-COV-2 COVID-19 2022-01-30 Completed [facility] of MODERNA 12+ YRS 00:00:00 [place] [facility] SARS-COV-2 COVID-19 2022-01-30 Completed [facility] of MODERNA 12+ YRS 00:00:00 [place] [facility] SARS-COV-2 COVID-19 2022-01-30 Completed [facility] of MODERNA 12+ YRS 00:00:00 [place] [facility] SARS-COV-2 COVID-19 2022-01-30 Completed [facility] of MODERNA 12+ YRS 00:00:00 [place] [facility] SARS-COV-2 COVID-19 2022-01-30 Completed [facility] of MODERNA 12+ YRS 00:00:00 [place] [facility] SARS-COV-2 COVID-19 2022-01-30 Completed [facility] of MODERNA 12+ YRS 00:00:00 [place] [facility] Moderna COVID-19 Moderna COVID-19 2021-08-12 Com[facility] (Low Dose Vaccine (Low Dose 10:08:[address] [facility] Booster) Booster) [facility] Moderna COVID-19 Moderna COVID-19 2021-08-12 Completed [facility] (Low Dose Vaccine (Low Dose 10:08:[address] [facility] Booster) Booster) [facility] Moderna COVID-19 Moderna COVID-19 2021-08-12 Completed [facility] (Low Dose Vaccine (Low Dose 10:08:[address] [facility] Booster) Booster) [facility] Moderna COVID-19 Moderna COVID-19 2021-08-12 Completed [facility] (Low Dose Vaccine (Low Dose 10:08:[address] [facility] Booster) [facility] COVID-19 2021-08-12 Completed [facility] (Low Dose Vaccine (Low Dose 10:08:[address] [facility] Booster) Booster) [facility] COVID19 [facility] COVID19 2021-08-12 Completed [facility] (Low Dose Vaccine (Low Dose 10:08:[address] [facility] Booster) Booster) [facility] COVID19 [facility] COVID19 2021-08-12 Completed [facility] (Low Dose Vaccine (Low Dose 10:08:[address] [facility] Booster) Booster) [facility] COVID19 [facility] COVID-19 2021-08-12 Completed [facility] (Low Dose Vaccine (Low Dose 10:08:[address] [facility] Booster) Booster) [facility] COVID19 [facility] COVID19 2021-08-12 Completed [facility] (Low Dose Vaccine (Low Dose 10:08:[address] [facility] Booster) Booster) [facility] COVID19 [facility] COVID19 2021-08-12 Completed [facility] (Low Dose Vaccine (Low Dose 10:08:[address] [facility] Booster) Booster) [facility] SARS-COV-2 COVID19 2021-08-12 Completed [facility] of MODERNA 12+ YRS 00:00:00 [place] [facility] SARS-COV-2 COVID-19 2021-08-12 Completed [facility] of MODERNA 12+ YRS 00:00:00 [place] [facility] SARS-COV-2 COVID-19 2021-08-12 Completed [facility] of MODERNA 12+ YRS 00:00:00 [place] [facility] SARS-COV-2 COVID-19 2021-08-12 Completed [facility] of MODERNA 12+ YRS 00:00:00 [place] [facility] SARS-COV-2 COVID-19 2021-08-12 Completed [facility] of MODERNA 12+ YRS 00:00:00 [place] [facility] SARS-COV-2 COVID-19 2021-08-12 Completed [facility] of MODERNA 12+ YRS 00:00:00 [place] [facility] SARS-COV-2 COVID-19 2021-08-12 Completed [facility] of MODERNA 12+ YRS 00:00:00 [place] [facility]INE [facility] SARS-COV-2 COVID-19 2021-08-12 Completed [facility] of MODERNA 12+ YRS 00:00:00 [place] [facility] SARS-COV-2 COVID-19 2021-08-12 Completed [facility] of MODERNA 12+ YRS 00:00:00 [place] [facility] SARS-COV-2 COVID-19 2021-08-12 Completed [facility] of MODERNA 12+ YRS 00:00:00 [place] [facility] SARS-COV-2 COVID-19 2021-08-12 Completed [facility] of MODERNA 12+ YRS 00:00:00 [place] [facility] SARS-COV-2 COVID-19 2021-08-12 Completed [facility] of MODERNA 12+ YRS 00:00:00 [place] [facility] SARS-COV-2 COVID-19 2021-08-12 Completed [facility] of MODERNA 12+ YRS 00:00:00 [place] [facility] V[facility] SARS-COV-2 COVID-19 2021-08-12 Completed [facility] of MODERNA 12+ YRS 00:00:00 [place] [facility] V[facility] SARS-COV-2 COVID-19 2021-08-12 Completed [facility] of MODERNA 12+ YRS 00:00:00 [place] [facility] SARS-COV-2 COVID-19 2021-08-12 Completed [facility] of MODERNA 12+ YRS 00:00:00 [place] [facility] SARS-COV-2 COVID-19 2021-08-12 Completed [facility] of MODERNA 12+ YRS 00:00:00 [place] [facility] SARS-COV-2 COVID-19 2021-08-12 Completed [facility] of MODERNA 12+ YRS 00:00:00 [place] [facility] SARS-COV-2 COVID-19 2021-08-12 Completed [facility] of MODERNA 12+ YRS 00:00:00 [place] [facility] SARS-COV-2 COVID-19 2021-08-12 Completed [facility] of MODERNA 12+ YRS 00:00:00 [place] [facility] V[facility] SARS-COV-2 COVID-19 2021-08-12 Completed [facility] rs[facility] of MODERNA 12+ YRS 00:00:00 [place] [facility] SARS-COV-2 COVID-19 2021-08-12 Completed [facility] of MODERNA 12+ YRS 00:00:00 [place] [facility] SARS-COV-2 COVID-19 2021-08-12 Completed [facility] of MODERNA 12+ YRS 00:00:00 [place] [facility] SARS-COV-2 COVID-19 2021-08-12 Completed [facility] rs[facility] of MODERNA 12+ YRS 00:00:00 [place] [facility] SARS-COV-2 COVID-19 2021-08-12 Completed [facility] rs[facility] of MODERNA 12+ YRS 00:00:00 [place] [facility] SARS-COV-2 COVID-19 2021-08-12 Completed [facility] of MODERNA 12+ YRS 00:00:00 [place] [facility] SARS-COV-2 COVID-19 2021-08-12 Completed [facility] of MODERNA 12+ YRS 00:00:00 [place] [facility] SARS-COV-2 COVID-19 2021-08-12 Completed [facility] of MODERNA 12+ YRS 00:00:00 [place] [facility] SARS-COV-2 COVID-19 2021-08-12 Completed [facility] of MODERNA 12+ YRS 00:00:00 [place] [facility]ACC[facility] SARS-COV-2 COVID-19 2021-08-12 Completed [facility] of MODERNA 12+ YRS 00:00:00 [place] [facility] SARS-COV-2 COVID-19 2021-08-12 Completed [facility] rs[facility] of MODERNA 12+ YRS 00:00:00 [place] [facility] SARS-COV-2 COVID-19 2021-08-12 Completed [facility] of MODERNA 12+ YRS 00:00:00 [place] [facility] V[facility] SARS-COV-2 COVID-19 2021-08-12 Completed [facility] rsity of MODERNA 12+ YRS 00:00:00 [facility] VACCINE Branch SARS-COV-2 COVID-19 2021-08-12 Completed [facility]ive rsity of MODERNA 12+ YRS 00:00:00 [facility] VACCINE Branch FluAD FluAD 2021-07-15 Completed [facility] - 12:01:00 [facility] FluAD FluAD 2021-07-15 Completed [facility] - 12:01:00 [facility] FluAD FluAD 2021-07-15 Completed [facility] - 12:01:00 [facility] FluAD FluAD 2021-07-15 Completed [facility] - 12:01:00 [facility] FluAD FluAD 2021-07-15 Completed [facility] - 12:01:00 [facility] FluAD FluAD 2021-07-15 Completed [facility] - 12:01:00 [facility] FluAD FluAD 2021-07-15 Completed [facility] - 12:01:00 [facility] FluAD FluAD 2021-07-15 Completed [facility] - 12:01:00 [facility] FluAD FluAD 2021-07-15 Completed [facility] - 12:01:00 [facility] FluAD FluAD 2021-07-15 Completed [facility] - 12:01:00 [facility] FluAD FluAD 2021-07-15 Completed [facility] - 12:01:00 [facility] FluAD FluAD 2021-07-15 Completed [facility] - 12[facility]01:00 [facility] Influenza Virus 2021-07-15 Completed [facility]quad [facility] [place] [facility] 65+ Influenza Virus 2021-07-15 Completed [facility] Vaccine,quad 00:00:00 [place] [facility] 65+ Influenza Virus 2021-07-15 Completed [facility] Vaccine,quad 00:00:00 [place] [facility] 65+ Influenza Virus 2021-07-15 Completed [facility] Vaccine,quad 00:00:00 [place] [facility] 65+ Influenza Virus 2021-07-15 Completed [facility] Vaccine,quad 00:00:00 [place] [facility] 65+ Influenza Virus 2021-07-15 Completed [facility] Vaccine,quad 00:00:00 [place] [facility] 65+ Influenza Virus 2021-07-15 Completed [facility] Vaccine,quad 00:00:00 [place] [facility] 65+ Influenza Virus 2021-07-15 Completed [facility] Vaccine,quad 00:00:00 [place] [facility] 65+ Influenza Virus 2021-07-15 Completed [facility] Vaccine,quad 00:00:00 [place] [facility] 65+ Influenza Virus 2021-07-15 Completed [facility] Vaccine,quad 00:00:00 [place] [facility] 65+ Influenza Virus 2021-07-15 Completed [facility] Vaccine,quad 00:00:00 [place] [facility] Free [facility] 65+ Influenza Virus 2021-07-15 Completed [facility] Vaccine,quad 00:00:00 [place] [facility] 65+ Influenza Virus 2021-07-15 Completed [facility] Vaccine,quad 00:00:00 [place] [facility] Free [facility] 65+ Influenza Virus 2021-07-15 Completed [facility] Vaccine,quad 00:00:00 [place] [facility] 65+ Influenza Virus 2021-07-15 Completed [facility] Vaccine,quad 00:00:00 [place] [facility] 65+ Influenza Virus 2021-07-15 Completed [facility] Vaccine,quad 00:00:00 [place] [facility] 65+ Influenza Virus 2021-07-15 Completed [facility] Vaccine,quad 00:00:00 [place] [facility] 65+ Influenza Virus 2021-07-15 Completed [facility] Vaccine,quad 00:00:00 [place] [facility] 65+ Influenza Virus 2021-07-15 Completed [facility] Vaccine,quad 00:00:00 [place] [facility] 65+ Influenza Virus 2021-07-15 Completed [facility] Vaccine,quad 00:00:00 [place] [facility] 65+ Influenza Virus 2021-07-15 Completed [facility] Vaccine,quad 00:00:00 [place] [facility] Free [facility] 65+ Influenza Virus 2021-07-15 Completed [facility] Vaccine,quad 00:00:00 [place] [facility] Free [facility] 65+ Influenza Virus 2021-07-15 Completed [facility] Vaccine,quad 00:00:00 [place] [facility] Free [facility] 65+ Influenza Virus 2021-07-15 Completed [facility] Vaccine,quad 00:00:00 [place] [facility] Free [facility] 65+ Influenza Virus 2021-07-15 Completed [facility] Vaccine,quad 00:00:00 [place] [facility] 65+ Influenza Virus 2021-07-15 Completed [facility] Vaccine,quad 00:00:00 [place] [facility] Free [facility] 65+ Influenza Virus 2021-07-15 Completed [facility] Vaccine,quad 00:00:00 [place] [facility] Free [facility] 65+ Influenza Virus 2021-07-15 Completed [facility] Vaccine,quad 00:00:00 [place] [facility] 65+ Influenza Virus 2021-07-15 Completed [facility] Vaccine,quad 00:00:00 [place] [facility] 65+ Influenza Virus 2021-07-15 Completed [facility] Vaccine,quad 00:00:00 [place] [facility] 65+ Influenza Virus 2021-07-15 Completed [facility] Vaccine,quad 00:00:00 [place] [facility] 65+ Influenza Virus 2021-07-15 Completed [facility] Vaccine,quad 00:00:00 [place] [facility] 65+ Influenza Virus 2021-07-15 Completed [facility] Vaccine,quad 00:00:00 [place] [facility] 65+ Influenza Virus 2021-07-15 Completed [facility] Vaccine,quad 00:00:00 [place] [facility] 65+ Bupivicaine [place] Bupivicaine Ratcliff 2020-12-28 Completed [facility] - 15:49:00 [facility] Kenalog Kenalog 2020-12-28 Completed [facility] - (Triamcinolone) (Triamcinolone) 15:49:00 [facility] Bupivicaine [place] Bupivicaine Ratcliff 2020-12-28 Completed [facility] - 15:49:00 [facility] Kenvicky Onealalog 2020-12-28 Completed [facility] - (Triamcinolone) (Triamcinolone) 15:49:00 [facility] Bupivicaine [place] Bupivicaine Ratcliff 2020-12-28 Completed [facility] - 15:49:00 [facility] Juan Jose Ingram 2020-12-28 Completed [facility] - (Triamcinolone) (Triamcinolone) 15:49:00 [facility] Bupivicaine [place] Bupivicaine Ratcliff 2020-12-28 Completed [facility] - 15:49:00 [facility] Juan Jose Ingram 2020-12-28 Completed [facility] - (Triamcinolone) (Triamcinolone) 15:49:00 [facility] Bupivicaine [place] Bupivicaine Ratcliff 2020-12-28 Completed [facility] - 15:49:00 [facility] Juan Jose Ingram 2020-12-28 Completed [facility] - (Triamcinolone) (Triamcinolone) 15:49:00 [facility] Bupivicaine [place] Bupivicaine Ratcliff 2020-12-28 Completed [facility] - 15:49:00 [facility] Juan Jose Ingram 2020-12-28 Completed [facility] - (Triamcinolone) (Triamcinolone) 15:49:00 [facility] Bupivicaine [place] Bupivicaine Ratcliff 2020-12-28 Completed [facility] - 15:49:00 [facility] Juan Jose Ingram 2020-12-28 Completed [facility] - (Triamcinolone) (Triamcinolone) 15:49:00 [facility] SARS-COV-2 COVID-19 2020-11-20 Completed [facility] of MODERNA 12+ YRS 00:00:00 [facility] VACCINE Branch SARS-COV-2 COVID-19 2020-11-20 Completed [facility] of MODERNA 12+ YRS 00:00:00 [place] [facility] SARS-COV-2 COVID-19 2020-11-20 Completed [facility] of MODERNA 12+ YRS 00:00:00 [place] [facility] SARS-COV-2 COVID-19 2020-11-20 Completed [facility] of MODERNA 12+ YRS 00:00:00 [place] [facility] SARS-COV-2 COVID-19 2020-11-20 Completed [facility] of MODERNA 12+ YRS 00:00:00 [place] [facility] SARS-COV-2 COVID-19 2020-11-20 Completed [facility] of MODERNA 12+ YRS 00:00:00 [place] [facility] SARS-COV-2 COVID-19 2020-11-20 Completed [facility] of MODERNA 12+ YRS 00:00:00 [place] [facility] SARS-COV-2 COVID-19 2020-11-20 Completed [facility] of MODERNA 12+ YRS 00:00:00 [place] [facility] SARS-COV-2 COVID-19 2020-11-20 Completed [facility] of MODERNA 12+ YRS 00:00:00 [place] [facility] SARS-COV-2 COVID-19 2020-11-20 Completed [facility] of MODERNA 12+ YRS 00:00:00 [place] [facility] SARS-COV-2 COVID-19 2020-11-20 Completed [facility] of MODERNA 12+ YRS 00:00:00 [place] [facility] SARS-COV-2 COVID-19 2020-11-20 Completed [facility] of MODERNA 12+ YRS 00:00:00 [place] [facility] SARS-COV-2 COVID-19 2020-11-20 Completed [facility] of MODERNA 12+ YRS 00:00:00 [place] [facility] SARS-COV-2 COVID-19 2020-11-20 Completed [facility] of MODERNA 12+ YRS 00:00:00 [place] [facility] SARS-COV-2 COVID-19 2020-11-20 Completed [facility] of MODERNA 12+ YRS 00:00:00 [place] [facility] SARS-COV-2 COVID-19 2020-11-20 Completed [facility] of MODERNA 12+ YRS 00:00:00 [place] [facility] SARS-COV-2 COVID-19 2020-11-20 Completed [facility] of MODERNA 12+ YRS 00:00:00 [place] [facility] SARS-COV-2 COVID-19 2020-11-20 Completed [facility] of MODERNA 12+ YRS 00:00:00 [place] [facility] SARS-COV-2 COVID-19 2020-11-20 Completed [facility] of MODERNA 12+ YRS 00:00:00 [place] [facility] SARS-COV-2 COVID-19 2020-11-20 Completed [facility] of MODERNA 12+ YRS 00:00:00 [place] [facility] SARS-COV-2 COVID-19 2020-11-20 Completed [facility] of MODERNA 12+ YRS 00:00:00 [place] [facility] SARS-COV-2 COVID-19 2020-11-20 Completed [facility] of MODERNA 12+ YRS 00:00:00 [place] [facility] SARS-COV-2 COVID-19 2020-11-20 Completed [facility] of MODERNA 12+ YRS 00:00:00 [place] [facility] SARS-COV-2 COVID-19 2020-11-20 Completed [facility] of MODERNA 12+ YRS 00:00:00 [place] [facility] SARS-COV-2 COVID-19 2020-11-20 Completed [facility] of MODERNA 12+ YRS 00:00:00 [place] [facility] SARS-COV-2 COVID-19 2020-11-20 Completed [facility] of MODERNA 12+ YRS 00:00:00 [place] [facility] SARS-COV-2 COVID-19 2020-11-20 Completed [facility] of MODERNA 12+ YRS 00:00:00 [place] [facility] SARS-COV-2 COVID-19 2020-11-20 Completed [facility] of MODERNA 12+ YRS 00:00:00 [place] [facility] SARS-COV-2 COVID-19 2020-11-20 Completed [facility] of MODERNA 12+ YRS 00:00:00 [place] [facility] SARS-COV-2 COVID-19 2020-11-20 Completed [facility] of MODERNA 12+ YRS 00:00:00 [place] [facility] SARS-COV-2 COVID-19 2020-11-20 Completed [facility] of MODERNA 12+ YRS 00:00:00 [place] [facility] SARS-COV-2 COVID-19 2020-11-20 Completed [facility] of MODERNA 12+ YRS 00:00:00 [place] [facility] SARS-COV-2 COVID-19 2020-11-20 Completed [facility] of MODERNA 12+ YRS 00:00:00 [place] [facility] SARS-COV-2 COVID-19 2020-11-20 Completed [facility] of MODERNA 12+ YRS 00:00:00 [place] [facility] SARS-COV-2 COVID-19 2020-10-23 Completed [facility] of MODERNA 12+ YRS 00:00:00 [place] [facility] SARS-COV-2 COVID-19 2020-10-23 Completed [facility] of MODERNA 12+ YRS 00:00:00 [place] [facility] VACC[facility] SARS-COV-2 COVID-19 2020-10-23 Completed [facility] of MODERNA 12+ YRS 00:00:00 [place] [facility] V[facility] SARS-COV-2 COVID-19 2020-10-23 Completed [facility] of MODERNA 12+ YRS 00:00:00 [place] [facility] SARS-COV-2 COVID-19 2020-10-23 Completed [facility] of MODERNA 12+ YRS 00:00:00 [place] [facility] SARS-COV-2 COVID-19 2020-10-23 Completed [facility] of MODERNA 12+ YRS 00:00:00 [place] [facility] SARS-COV-2 COVID-19 2020-10-23 Completed [facility] of MODERNA 12+ YRS 00:00:00 [place] [facility] SARS-COV-2 COVID-19 2020-10-23 Completed [facility] of MODERNA 12+ YRS 00:00:00 [place] [facility] SARS-COV-2 COVID-19 2020-10-23 Completed [facility] of MODERNA 12+ YRS 00:00:00 [place] [facility] SARS-COV-2 COVID-19 2020-10-23 Completed [facility] of MODERNA 12+ YRS 00:00:00 [place] [facility] SARS-COV-2 COVID-19 2020-10-23 Completed [facility] of MODERNA 12+ YRS 00:00:00 [place] [facility] SARS-COV-2 COVID-19 2020-10-23 Completed [facility] of MODERNA 12+ YRS 00:00:00 [place] [facility] SARS-COV-2 COVID-19 2020-10-23 Completed [facility] of MODERNA 12+ YRS 00:00:00 [place] [facility] SARS-COV-2 COVID-19 2020-10-23 Completed [facility] of MODERNA 12+ YRS 00:00:00 [place] [facility] SARS-COV-2 COVID-19 2020-10-23 Completed [facility] 12+ YRS 00:00:00 [place] [facility] SARS-COV-2 COVID-19 2020-10-23 Completed [facility] 12+ YRS 00:00:00 [place] [facility] SARS-COV-2 COVID-19 2020-10-23 Completed [facility] 12+ YRS 00:00:00 [place] [facility] SARS-COV-2 COVID-19 2020-10-23 Completed [facility] 12+ YRS 00:00:00 [place] [facility] SARS-COV-2 COVID-19 2020-10-23 Completed [facility] 12+ YRS 00:00:00 [place] [facility] SARS-COV-2 COVID-19 2020-10-23 Completed [facility] 12+ YRS 00:00:00 [place] [facility] SARS-COV-2 COVID-19 2020-10-23 Completed [facility] 12+ YRS 00:00:00 [place] [facility] SARS-COV-2 COVID-19 2020-10-23 Completed [facility]NA 12+ YRS 00:00:00 [place] [facility] SARS-COV-2 COVID-19 2020-10-23 Completed [facility] 12+ YRS 00:00:00 [place] [facility] SARS-COV-2 COVID-19 2020-10-23 Completed [facility] MODERNA 12+ YRS 00:00:00 [place] [facility] SARS-COV-2 COVID-19 2020-10-23 Completed [facility] MODERNA 12+ YRS 00:00:00 [place] [facility] SARS-COV-2 COVID-19 2020-10-23 Completed [facility] MODERNA 12+ YRS 00:00:00 [place] [facility] SARS-COV-2 COVID-19 2020-10-23 Completed [facility] MODERNA 12+ YRS 00:00:00 [place] [facility] SARS-COV-2 COVID-19 2020-10-23 Completed [facility] MODERNA 12+ YRS 00:00:00 [place] [facility] SARS-COV-2 COVID-19 2020-10-23 Completed [facility] MODERNA 12+ YRS 00:00:00 [place] [facility] SARS-COV-2 COVID-19 2020-10-23 Completed [facility] MODERNA 12+ YRS 00:00:00 [place] [facility] SARS-COV-2 COVID-19 2020-10-23 Completed [facility] MODERNA 12+ YRS 00:00:00 [place] [facility] SARS-COV-2 COVID-19 2020-10-23 Completed [facility] MODERNA 12+ YRS 00:00:00 [place] [facility] SARS-COV-2 COVID-19 2020-10-23 Completed [facility] MODERNA 12+ YRS 00:00:00 [place] [facility] SARS-COV-2 COVID-19 2020-10-23 Completed [facility] MODERNA 12+ YRS 00:00:00 [place] [facility] Zoster Vaccine 2020-08-24 Completed [facility] Recombinant 00:00:00 [facility] Zoster Vaccine 2020-08-24 Completed [facility] Recombinant 00:00:00 [facility] [place] Zoster Vaccine 2020-08-24 Completed [facility] Recombinant 00:00:00 [facility] Zoster Vaccine 2020-08-24 Completed [facility] of Recombinant 00:00:00 [facility] Zoster Vaccine 2020-08-24 Completed [facility] Recombinant 00:00:00 [facility] Zoster Vaccine 2020-08-24 Completed [facility] Recombinant 00:00:00 [facility] Zoster Vaccine 2020-08-24 Completed [facility] of Recombinant 00:00:00 [facility] Zoster Vaccine 2020-08-24 Completed [facility] Recombinant 00:00:00 [facility] Zoster Vaccine 2020-08-24 Completed [facility] Recombinant 00:00:00 [facility] Zoster Vaccine 2020-08-24 Completed [facility] Recombinant 00:00:00 [facility] Zoster Vaccine 2020-08-24 Completed [facility] Recombinant 00:00:00 [facility] Zoster Vaccine 2020-08-24 Completed [facility] Recombinant 00:00:00 [facility] Zoster Vaccine 2020-08-24 Completed [facility] of Recombinant 00:00:00 [facility] Zoster Vaccine 2020-08-24 Completed [facility] of Recombinant 00:00:00 [facility] Zoster Vaccine 2020-08-24 Completed [facility] Recombinant 00:00:00 [facility] Zoster Vaccine 2020-08-24 Completed [facility] of Recombinant 00:00:00 [facility] Zoster Vaccine 2020-08-24 Completed [facility] of Recombinant 00:00:00 [facility] Zoster Vaccine 2020-08-24 Completed [facility] of Recombinant 00:00:00 [facility] Zoster Vaccine 2020-08-24 Completed [facility] of Recombinant 00:00:00 [facility] Zoster Vaccine 2020-08-24 Completed [facility] of Recombinant 00:00:00 [facility] Zoster Vaccine 2020-08-24 Completed [facility] Recombinant 00:00:00 [facility] Zoster Vaccine 2020-08-24 Completed [facility] Recombinant 00:00:00 [facility] Zoster Vaccine 2020-08-24 Completed [facility] Recombinant 00:00:00 [facility] Zoster Vaccine 2020-08-24 Completed [facility] Recombinant 00:00:00 [facility] Zoster Vaccine 2020-08-24 Completed [facility] Recombinant 00:00:00 [facility] Zoster Vaccine 2020-08-24 Completed [facility] Recombinant 00:00:00 [facility] Zoster Vaccine 2020-08-24 Completed [facility] Recombinant 00:00:00 [facility] Zoster Vaccine 2020-08-24 Completed [facility] Recombinant 00:00:00 [facility] Zoster Vaccine 2020-08-24 Completed [facility] Recombinant 00:00:00 [facility] Zoster Vaccine 2020-08-24 Completed [facility] Recombinant 00:00:00 [facility] Zoster Vaccine 2020-08-24 Completed [facility] Recombinant 00:00:00 [facility] Zoster Vaccine 2020-08-24 Completed [facility] of Recombinant 00:00:00 [facility] Zoster Vaccine 2020-08-24 Completed [facility] of Recombinant 00:00:00 [facility] Zoster Vaccine 2020-08-24 Completed [facility] Recombinant 00:00:00 [facility] Zoster Vaccine 2020-06-25 Completed [facility] Recombinant 00:00:00 [facility] Zoster Vaccine 2020-06-25 Completed [facility] Recombinant 00:00:00 [facility] Zoster Vaccine 2020-06-25 Completed [facility] Recombinant 00:00:00 [facility] Zoster Vaccine 2020-06-25 Completed [facility] Recombinant 00:00:00 [facility] Zoster Vaccine 2020-06-25 Completed [facility] Recombinant 00:00:00 [facility] Zoster Vaccine 2020-06-25 Completed [facility] of Recombinant 00:00:00 [facility] Zoster Vaccine 2020-06-25 Completed [facility] Recombinant 00:00:00 [facility] Zoster Vaccine 2020-06-25 Completed [facility] Recombinant 00:00:00 [facility] Zoster Vaccine 2020-06-25 Completed [facility] Recombinant 00:00:00 [facility] Zoster Vaccine 2020-06-25 Completed [facility] of Recombinant 00:00:00 [facility] Zoster Vaccine 2020-06-25 Completed [facility] of Recombinant 00:00:00 [facility] Zoster Vaccine 2020-06-25 Completed [facility] Recombinant 00:00:00 [facility] Zoster Vaccine 2020-06-25 Completed [facility] Recombinant 00:00:00 [facility] Zoster Vaccine 2020-06-25 Completed [facility] of Recombinant 00:00:00 [facility] Zoster Vaccine 2020-06-25 Completed [facility] Recombinant 00:00:00 [facility] Zoster Vaccine 2020-06-25 Completed [facility] Recombinant 00:00:00 [facility] Zoster Vaccine 2020-06-25 Completed [facility] of Recombinant 00:00:00 [facility] Zoster Vaccine 2020-06-25 Completed [facility] Recombinant 00:00:00 [facility] Zoster Vaccine 2020-06-25 Completed [facility] of Recombinant 00:00:00 [facility] Zoster Vaccine 2020-06-25 Completed [facility] Recombinant 00:00:00 [facility] Zoster Vaccine 2020-06-25 Completed [facility] Recombinant 00:00:00 [facility] Zoster Vaccine 2020-06-25 Completed [facility] Recombinant 00:00:00 [facility] Zoster Vaccine 2020-06-25 Completed [facility] of Recombinant 00:00:00 [facility] Zoster Vaccine 2020-06-25 Completed [facility] of Recombinant 00:00:00 [facility] Zoster Vaccine 2020-06-25 Completed [facility] of Recombinant 00:00:00 [facility] Zoster Vaccine 2020-06-25 Completed [facility] of Recombinant 00:00:00 [facility] Zoster Vaccine 2020-06-25 Completed [facility] of Recombinant 00:00:00 [facility] Zoster Vaccine 2020-06-25 Completed [facility] of Recombinant 00:00:00 [facility] Zoster Vaccine 2020-06-25 Completed [facility] Recombinant 00:00:00 [facility] Zoster Vaccine 2020-06-25 Completed [facility] Recombinant 00:00:00 [facility] Zoster Vaccine 2020-06-25 Completed [facility] Recombinant 00:00:00 [facility] Zoster Vaccine 2020-06-25 Completed [facility] Recombinant 00:00:00 [facility] Zoster Vaccine 2020-06-25 Completed [facility] of Recombinant 00:00:00 [facility] Zoster Vaccine 2020-06-25 Completed [facility] Recombinant 00:00:00 [facility] Bupivicaine Ratcliff Bupivicaine Ratcliff 2020-01-22 Completed [facility] 14:07:00 [facility] Bupivicaine Ratcliff Bupivicaine Ratcliff 2020-01-22 Completed [facility] - 14:07:00 [facility] Bupivicaine [place] Bupivicaine Ratcliff 2020-01-22 Completed [facility] - 14:07:00 [facility] Bupivicaine [place] Bupivicaine Ratcliff 2020-01-22 Completed [facility] - 14:07:00 [facility] Bupivicaine [place] Bupivicaine Ratcliff 2020-01-22 Completed [facility] - 14:07:00 [facility] Bupivicaine [place] Bupivicaine Ratcliff 2020-01-22 Completed [facility] - 14:07:00 [facility] Bupivicaine [place] Bupivicaine Ratcliff 2020-01-22 Completed [facility] - 14:07:00 [facility] Kenalog Kenalog 2020-01-22 Completed [facility] - (Triamcinolone) (Triamcinolone) 14:06:00 [facility] Kenalog Kenalog 2020-01-22 Completed [facility] - (Triamcinolone) (Triamcinolone) 14:06:00 [facility] Juan Jose Ingram 2020-01-22 Completed [facility] - (Triamcinolone) (Triamcinolone) 14:06:00 [facility] Juan Jose Ingram 2020-01-22 Completed [facility] - (Triamcinolone) (Triamcinolone) 14:06:00 [facility] Juan Jose Ingram 2020-01-22 Completed [facility] - (Triamcinolone) (Triamcinolone) 14:06:00 [facility] Juan Jose Ingram 2020-01-22 Completed [facility] - (Triamcinolone) (Triamcinolone) 14:06:00 [facility] Juan Jose Ingram 2020-01-22 Completed [facility] - (Triamcinolone) (Triamcinolone) 14:06:00 [facility] FluAD FluAD 2019-07-10 Completed [facility] - 13:33:00 [facility] FluAD FluAD 2019-07-10 Completed [facility] - 13:33:00 [facility] FluAD FluAD 2019-07-10 Completed [facility] - 13:33:00 [facility] FluAD FluAD 2019-07-10 Completed [facility] - 13:33:00 [facility] FluAD FluAD 2019-07-10 Completed [facility] - 13:33:00 [facility] FluAD FluAD 2019-07-10 Completed [facility] - 13:33:00 [facility] FluAD FluAD 2019-07-10 Completed [facility] - 13:33:00 [facility] FluAD FluAD 2019-07-10 Completed [facility] - 13:33:00 [facility] FluAD FluAD 2019-07-10 Completed [facility] - 13:33:00 [facility] FluAD FluAD 2019-07-10 Completed [facility] - 13:33:00 [facility] FluAD FluAD 2019-07-10 Completed [facility] - 13:33:00 [facility] FluAD FluAD 2019-07-10 Completed [facility] - 13:33:00 [facility] FluAD FluAD 2019-07-10 Completed [facility] - 13:33:00 [facility] FluAD FluAD 2019-07-10 Completed [facility] - 13:33:00 [facility] FluAD FluAD 2019-07-10 Completed [facility] - 13:33:00 [facility] FluAD FluAD 2019-07-10 Completed [facility] - 13:33:00 [facility] Influenza Virus 2019-07-10 Completed [facility] Vaccine,quad 00:00:[facility] 65+ Influenza Virus 2019-07-10 Completed [facility] Vaccine,quad 00:00:00 [place] [facility] 65+ Influenza Virus 2019-07-10 Completed [facility] Vaccine,quad 00:00:00 [place] [facility] 65+ Influenza Virus 2019-07-10 Completed [facility] Vaccine,quad 00:00:00 [place] [facility] 65+ Influenza Virus 2019-07-10 Completed [facility] Vaccine,quad 00:00:00 [place] [facility] 65+ Influenza Virus 2019-07-10 Completed [facility] Vaccine,quad 00:00:00 [place] [facility] 65+ Influenza Virus 2019-07-10 Completed [facility] Vaccine,quad 00:00:00 [place] [facility] 65+ Influenza Virus 2019-07-10 Completed [facility] Vaccine,quad 00:00:00 [place] [facility] 65+ Influenza Virus 2019-07-10 Completed [facility] Vaccine,quad 00:00:00 [place] [facility] 65+ Influenza Virus 2019-07-10 Completed [facility] Vaccine,quad 00:00:00 [place] [facility] 65+ Influenza Virus 2019-07-10 Completed [facility] Vaccine,quad 00:00:00 [place] [facility] 65+ Influenza Virus 2019-07-10 Completed [facility] Vaccine,quad 00:00:00 [place] [facility] 65+ Influenza Virus 2019-07-10 Completed [facility] Vaccine,quad 00:00:00 [place] [facility] 65+ Influenza Virus 2019-07-10 Completed [facility] Vaccine,quad 00:00:00 [place] [facility] 65+ Influenza Virus 2019-07-10 Completed [facility] Vaccine,quad 00:00:00 [place] [facility] 65+ Influenza Virus 2019-07-10 Completed [facility] Vaccine,quad 00:00:00 [place] [facility] 65+ Influenza Virus 2019-07-10 Completed [facility] Vaccine,quad 00:00:00 [place] [facility] 65+ Influenza Virus 2019-07-10 Completed [facility] Vaccine,quad 00:00:00 [place] [facility] 65+ Influenza Virus 2019-07-10 Completed [facility] Vaccine,quad 00:00:00 [place] [facility] 65+ Influenza Virus 2019-07-10 Completed [facility] Vaccine,quad 00:00:00 [place] [facility] 65+ Influenza Virus 2019-07-10 Completed [facility] Vaccine,quad 00:00:00 [place] [facility] 65+ Influenza Virus 2019-07-10 Completed [facility] Vaccine,quad 00:00:00 [place] [facility] 65+ Influenza Virus 2019-07-10 Completed [facility] Vaccine,quad 00:00:00 [place] [facility] 65+ Influenza Virus 2019-07-10 Completed [facility] Vaccine,quad 00:00:00 [place] [facility] 65+ Influenza Virus 2019-07-10 Completed [facility] Vaccine,quad 00:00:00 [place] [facility] 65+ Influenza Virus 2019-07-10 Completed [facility] Vaccine,quad 00:00:00 [place] [facility] 65+ Influenza Virus 2019-07-10 Completed [facility] Vaccine,quad 00:00:00 [place] [facility] 65+ Influenza Virus 2019-07-10 Completed [facility] Vaccine,quad 00:00:00 [place] [facility] 65+ Influenza Virus 2019-07-10 Completed [facility] Vaccine,quad 00:00:00 [place] [facility] 65+ Influenza Virus 2019-07-10 Completed [facility] Vaccine,quad 00:00:00 [place] [facility] 65+ Influenza Virus 2019-07-10 Completed [facility] Vaccine,quad 00:00:00 [place] [facility] 65+ Influenza Virus 2019-07-10 Completed [facility] Vaccine,quad 00:00:00 [place] [facility] 65+ Influenza Virus 2019-07-10 Completed [facility] Vaccine,quad 00:00:00 [place] [facility] 65+ Influenza Virus 2019-07-10 Completed [facility] Vaccine,quad 00:00:00 [place] [facility] 65+ FluAD FluAD 2019-07-10 Completed [facility] - 00:00:00 [facility] TDAP 2017-07-02 Completed [facility] of 00:00:00 [facility] TDAP 2017-07-02 Completed [facility] of 00:00:00 [facility] TDAP 2017-07-02 Completed [facility] of 00:00:00 [facility] TDAP 2017-07-02 Completed [facility] of 00:00:00 [facility] TDAP 2017-07-02 Completed [facility] of 00:00:00 [facility] TDAP 2017-07-02 Completed [facility] of 00:00:00 [facility] TDAP 2017-07-02 Completed [facility] of 00:00:00 [facility] TDAP 2017-07-02 Completed [facility] of 00:00:00 [facility] TDAP 2017-07-02 Completed [facility] of 00:00:00 [facility] TDAP 2017-07-02 Completed [facility] of 00:00:00 [facility] TDAP 2017-07-02 Completed [facility] of 00:00:00 [facility] TDAP 2017-07-02 Completed [facility] of 00:00:00 [facility] TDAP 2017-07-02 Completed [facility] of 00:00:00 [facility] [place] [facility] TDAP 2017-07-02 Completed [facility] of 00:00:00 [facility] [place] [facility] TDAP 2017-07-02 Completed [facility] 00:00:00 [facility] TDAP 2017-07-02 Completed [facility] of 00:00:00 [facility] TDAP 2017-07-02 Completed [facility] of 00:00:00 [facility] TDAP 2017-07-02 Completed [facility] of 00:00:00 [facility] TDAP 2017-07-02 Completed [facility] of 00:00:00 [facility] TDAP 2017-07-02 Completed [facility] of 00:00:00 [facility] TDAP 2017-07-02 Completed [facility] of 00:00:00 [facility] TDAP 2017-07-02 Completed [facility] of 00:00:00 [facility] TDAP 2017-07-02 Completed [facility] of 00:00:00 [facility] TDAP 2017-07-02 Completed [facility] of 00:00:00 [facility] TDAP 2017-07-02 Completed [facility] of 00:00:00 [facility] TDAP 2017-07-02 Completed [facility] of 00:00:00 [facility] TDAP 2017-07-02 Completed [facility] of 00:00:00 [facility] TDAP 2017-07-02 Completed [facility] of 00:00:00 [facility] TDAP 2017-07-02 Completed [facility] of 00:00:00 [facility] TDAP 2017-07-02 Completed [facility] of 00:00:00 [facility] TDAP 2017-07-02 Completed [facility] of 00:00:00 [facility] TDAP 2017-07-02 Completed [facility] of 00:00:00 [facility] TDAP 2017-07-02 Completed [facility] of 00:00:00 [facility] TDAP 2017-07-02 Completed [facility] of 00:00:00 [facility] Pneumococcal 2016-07-15 Completed [facility] o f Polysaccharide, 00:00:00 [place] [facility] PPSV23 (PNEUMOVAX) Branch Pneumococcal 2016-07-15 Completed [facility] o f Polysaccharide, 00:00:00 [place] [facility] PPSV23 (PNEUMOVAX) Branch Pneumococcal 2016-07-15 Completed [facility] o f Polysaccharide, 00:00:00 [place] [facility] PPSV23 (PNEUMOVAX) Branch Pneumococcal 2016-07-15 Completed [facility] o f Polysaccharide, 00:00:00 [place] [facility] PPSV23 (PNEUMOVAX) Branch Pneumococcal 2016-07-15 Completed [facility] o f Polysaccharide, 00:00:00 [place] [facility] PPSV23 (PNEUMOVAX) Branch Pneumococcal 2016-07-15 Completed [facility] o f Polysaccharide, 00:00:00 [place] [facility] PPSV23 (PNEUMOVAX) Branch Pneumococcal 2016-07-15 Completed [facility] o f Polysaccharide, 00:00:00 [place] [facility] PPSV23 (PNEUMOVAX) Branch Pneumococcal 2016-07-15 Completed [facility] o f Polysaccharide, 00:00:00 [place] [facility] PPSV23 (PNEUMOVAX) Branch Pneumococcal 2016-07-15 Completed [facility] o f Polysaccharide, 00:00:00 [place] [facility] PPSV23 (PNEUMOVAX) Branch Pneumococcal 2016-07-15 Completed [facility] o f Polysaccharide, 00:00:00 [place] [facility] PPSV23 (PNEUMOVAX) Branch Pneumococcal 2016-07-15 Completed [facility] o f Polysaccharide, 00:00:00 [place] [facility] PPSV23 (PNEUMOVAX) Branch Pneumococcal 2016-07-15 Completed [facility] o f Polysaccharide, 00:00:00 [place] [facility] PPSV23 (PNEUMOVAX) Branch Pneumococcal 2016-07-15 Completed [facility] o f Polysaccharide, 00:00:00 [place] [facility] PPSV23 (PNEUMOVAX) Branch Pneumococcal 2016-07-15 Completed [facility] o f Polysaccharide, 00:00:00 [place] [facility] PPSV23 (PNEUMOVAX) Branch Pneumococcal 2016-07-15 Completed [facility] o f Polysaccharide, 00:00:00 [place] [facility] PPSV23 (PNEUMOVAX) Branch Pneumococcal 2016-07-15 Completed [facility] o f Polysaccharide, 00:00:00 [place] [facility] PPSV23 (PNEUMOVAX) Branch Pneumococcal 2016-07-15 Completed [facility] o f Polysaccharide, 00:00:00 [place] [facility] PPSV23 (PNEUMOVAX) Branch Pneumococcal 2016-07-15 Completed [facility] o f Polysaccharide, 00:00:00 [place] [facility] PPSV23 (PNEUMOVAX) Branch Pneumococcal 2016-07-15 Completed [facility] o f Polysaccharide, 00:00:00 [place] [facility] PPSV23 (PNEUMOVAX) Branch Pneumococcal 2016-07-15 Completed [facility] o f Polysaccharide, 00:00:00 [place] [facility] PPSV23 (PNEUMOVAX) Branch Pneumococcal 2016-07-15 Completed [facility] o f Polysaccharide, 00:00:00 [place] [facility] PPSV23 (PNEUMOVAX) Branch Pneumococcal 2016-07-15 Completed [facility] o f Polysaccharide, 00:00:00 [place] [facility] PPSV23 (PNEUMOVAX) Branch Pneumococcal 2016-07-15 Completed [facility] o f Polysaccharide, 00:00:00 [place] [facility] PPSV23 (PNEUMOVAX) Branch Pneumococcal 2016-07-15 Completed [facility] o f Polysaccharide, 00:00:00 [place] [facility] PPSV23 (PNEUMOVAX) Branch Pneumococcal 2016-07-15 Completed [facility] o f Polysaccharide, 00:00:00 [place] [facility] PPSV23 (PNEUMOVAX) Branch Pneumococcal 2016-07-15 Completed [facility] o f Polysaccharide, 00:00:00 [place] [facility] PPSV23 (PNEUMOVAX) Branch Pneumococcal 2016-07-15 Completed [facility] o f Polysaccharide, 00:00:00 [place] [facility] PPSV23 (PNEUMOVAX) Branch Pneumococcal 2016-07-15 Completed [facility] o f Polysaccharide, 00:00:00 [place] [facility] PPSV23 (PNEUMOVAX) Branch Pneumococcal 2016-07-15 Completed [facility] o f Polysaccharide, 00:00:00 [place] [facility] PPSV23 (PNEUMOVAX) Branch Pneumococcal 2016-07-15 Completed [facility] o f Polysaccharide, 00:00:00 [place] [facility] PPSV23 (PNEUMOVAX) Branch Pneumococcal 2016-07-15 Completed [facility] o f Polysaccharide, 00:00:00 [place] [facility] PPSV23 (PNEUMOVAX) Branch Pneumococcal 2016-07-15 Completed [facility] o f Polysaccharide, 00:00:00 [place] [facility] PPSV23 (PNEUMOVAX) Branch Pneumococcal 2016-07-15 Completed [facility] o f Polysaccharide, 00:00:00 [place] [facility] PPSV23 (PNEUMOVAX) Branch Pneumococcal 2016-07-15 Completed [facility] o f Polysaccharide, 00:00:00 [place] [facility] PPSV23 (PNEUMOVAX) Branch Pneumococcal 13 2015-06-15 Completed [facility] of Conjugate, PCV13 00:00:00 [place] [facility] (Prevnar 13) Branch Pneumococcal 13 2015-06-15 Completed [facility] of Conjugate, PCV13 00:00:00 [place] [facility] (Prevnar 13) Branch Pneumococcal 13 2015-06-15 Completed [facility] of Conjugate, PCV13 00:00:00 [place] [facility] (Prevnar 13) Branch Pneumococcal 13 2015-06-15 Completed [facility] of Conjugate, PCV13 00:00:00 [place] [facility] (Prevnar 13) Branch Pneumococcal 13 2015-06-15 Completed [facility] of Conjugate, PCV13 00:00:00 [place] [facility] (Prevnar 13) Branch Pneumococcal 13 2015-06-15 Completed [facility] of Conjugate, PCV13 00:00:00 [place] [facility] (Prevnar 13) Branch Pneumococcal 13 2015-06-15 Completed [facility] of Conjugate, PCV13 00:00:00 [place] [facility] (Prevnar 13) Branch Pneumococcal 13 2015-06-15 Completed [facility] of Conjugate, PCV13 00:00:00 [place] [facility] (Prevnar 13) Branch Pneumococcal 13 2015-06-15 Completed [facility] of Conjugate, PCV13 00:00:00 [place] [facility] (Prevnar 13) Branch Pneumococcal 13 2015-06-15 Completed [facility] of Conjugate, PCV13 00:00:00 [place] [facility] (Prevnar 13) Branch Pneumococcal 13 2015-06-15 Completed [facility] of Conjugate, PCV13 00:00:00 [place] [facility] (Prevnar 13) Branch Pneumococcal 13 2015-06-15 Completed [facility] of Conjugate, PCV13 00:00:00 [place] [facility] (Prevnar 13) Branch Pneumococcal 13 2015-06-15 Completed [facility] of Conjugate, PCV13 00:00:00 [place] [facility] (Prevnar 13) Branch Pneumococcal 13 2015-06-15 Completed [facility] of Conjugate, PCV13 00:00:00 [place] [facility] (Prevnar 13) Branch Pneumococcal 13 2015-06-15 Completed [facility] of Conjugate, PCV13 00:00:00 [place] [facility] (Prevnar 13) Branch Pneumococcal 13 2015-06-15 Completed [facility] of Conjugate, PCV13 00:00:00 [place] [facility] (Prevnar 13) Branch Pneumococcal 13 2015-06-15 Completed [facility] of Conjugate, PCV13 00:00:00 [place] [facility] (Prevnar 13) Branch Pneumococcal 13 2015-06-15 Completed Universit y of Conjugate, PCV13 00:00:00 [place] [facility] (Prevnar 13) Branch Pneumococcal 13 2015-06-15 Completed Universit y of Conjugate, PCV13 00:00:00 [place] [facility] (Prevnar 13) Branch Pneumococcal 13 2015-06-15 Completed Universit y of Conjugate, PCV13 00:00:00 [place] [facility] (Prevnar 13) Branch Pneumococcal 13 2015-06-15 Completed Universit y of Conjugate, PCV13 00:00:00 [place] [facility] (Prevnar 13) Branch Pneumococcal 13 2015-06-15 Completed Universit y of Conjugate, PCV13 00:00:00 [place] [facility] (Prevnar 13) Branch Pneumococcal 13 2015-06-15 Completed Universit y of Conjugate, PCV13 00:00:00 [place] [facility] (Prevnar 13) Branch Pneumococcal 13 2015-06-15 Completed Universit y of Conjugate, PCV13 00:00:00 [place] [facility] (Prevnar 13) Branch Pneumococcal 13 2015-06-15 Completed Universit y of Conjugate, PCV13 00:00:00 [place] [facility] (Prevnar 13) Branch Pneumococcal 13 2015-06-15 Completed Universit y of Conjugate, PCV13 00:00:00 [place] [facility] (Prevnar 13) Branch Pneumococcal 13 2015-06-15 Completed Universit y of Conjugate, PCV13 00:00:00 [place] [facility] (Prevnar 13) Branch Pneumococcal 13 2015-06-15 Completed Universit y of Conjugate, PCV13 00:00:00 [place] [facility] (Prevnar 13) Branch Pneumococcal 13 2015-06-15 Completed Universit y of Conjugate, PCV13 00:00:00 [place] [facility] (Prevnar 13) Branch Pneumococcal 13 2015-06-15 Completed Universit y of Conjugate, PCV13 00:00:00 [place] [facility] (Prevnar 13) Branch Pneumococcal 13 2015-06-15 Completed Universit y of Conjugate, PCV13 00:00:00 [place] [facility] (Prevnar 13) Branch Pneumococcal 13 2015-06-15 Completed Universit y of Conjugate, PCV13 00:00:00 [place] [facility] (Prevnar 13) Branch Pneumococcal 13 2015-06-15 Completed Universit y of Conjugate, PCV13 00:00:00 [place] [facility] (Prevnar 13) Branch Pneumococcal 13 2015-06-15 Completed Universit y of Conjugate, PCV13 00:00:00 [place] [facility] (Prevnar 13) Branch Vital Signs Vital Name Observation Time Observation Value Comments Source Systolic blood 2022-08-21 14:17:00 109 mm[Hg] Univer sity of pressure [facility] Diastolic blood 2022-08-21 14:17:00 69 mm[Hg] Unive rsity of pressure [facility] Heart rate 2022-08-21 14:17:00 79 /min [facility] Body temperature 2022-08-21 14:17:00 36.61 [facility] height 2022-08-21 14:17:00 152.4 cm [facility] Body weight 2022-08-21 14:17:[address] [facility] BMI 2022-08-21 14:17:00 34.57 kg/m2 [facility] Oxygen saturation in 2022-08-21 14:17:00 96 /min University Arterial blood by [facility] Pulse oximetry Branch height 2021-12-01 09:40:00 61 [in_i] Common [facility] weight 2021-12-01 09:40:00 172.4 [lb_av] [facility] temperature 2021-12-01 09:40:00 95.7 [degF] Common [facility] bmi 2021-12-01 09:40:00 32.57 kg/m2 [facility] oximetry 2021-12-01 09:40:00 98 % [facility] respiratory rate 2021-12-01 09:40:00 16 /min Comm on [facility] blood pressure 2021-12-01 09:40:00 120 mm[Hg] Common [facility] - systolic [facility] blood pressure 2021-12-01 09:40:00 58 mm[Hg] Common [facility] - diastolic [facility] height 2021-08-29 09:40:00 61 [in_i] [facility] weight 2021-08-29 09:40:00 172.0 [lb_av] [facility] temperature 2021-08-29 09:40:00 96.6 [degF] Common [facility] bmi 2021-08-29 09:40:00 32.5 kg/m2 [facility] oximetry 2021-08-29 09:40:00 95 % [facility] respiratory rate 2021-08-29 09:40:00 18 /min Comm on [facility] blood pressure 2021-08-29 09:40:00 110 mm[Hg] Common [facility] - systolic [facility] blood pressure 2021-08-29 09:40:00 70 mm[Hg] [facility] height 2021-08-29 10:00:00 61 [in_i] Common S pirit [facility] weight 2021-08-29 10:00:00 172 [lb_av] Common S [facility] temperature 2021-08-29 10:00:00 96.6 [degF] Common S pirit - [facility] bmi 2021-08-29 10:00:00 32.5 kg/m2 Common S pirit [facility] blood pressure 2021-08-29 10:00:00 110 mm[Hg] [facility] blood pressure 2021-08-29 10:00:00 70 mm[Hg] [facility] height 2021-06-02 08:40:00 61 [in_i] [facility] weight 2021-06-02 08:40:00 168 [lb_av] Common S pirit [facility] temperature 2021-06-02 08:40:00 97.8 [degF] Common S pirit [facility] bmi 2021-06-02 08:40:00 31.74 kg/m2 [facility] S [facility] height 2021-02-10 11:20:00 61.00 [in_i] [facility] 2021-02-10 11:20:00 169.2 [lb_av] Common [facility] temperature 2021-02-10 11:20:00 97.2 [degF] Common S pirit [facility] bmi 2021-02-10 11:20:00 31.97 kg/m2 [facility] S [facility] oximetry 2021-02-10 11:20:00 98 % [facility] respiratory rate 2021-02-10 11:20:00 16 /min Comm on [facility] blood pressure 2021-02-10 11:20:00 136 mm[Hg] [facility] blood pressure 2021-02-10 11:20:00 61 mm[Hg] [facility] Procedures Procedure Date / Time Performing Clinician Source Performed POCT URINALYSIS 2022-08-21 17:40:00 Hillary [facility] CBC WITH DIFF 2022-08-21 15:38:00 Hillary [facility] EXTERNAL PROVIDER 2022-08-01 05:01:00 Doctor Unassigned, No [facility] [place] RECORDS Name Medical Branch FLU 2022-07-31 15:12:29 Doctor Unassigned, No Univer sity [facility] VACC(),65+YR,0 [facility] Medical Branch .5 ML,IM,ADJUVANTED,QUAD(F LUAD) THYROID STIMULATING 2022-07-21 13:05:00 Ignacio Thornton [facility] HORMONE [facility] Branch SARS-COV-2 COVID-19 2022-07-03 17:15:35 Doctor Unassigned, No Un iversity [facility] PATRICIA-SUCROSE VACCINE 12 Name Medical Branch YRS+, BIVALENT 0.3ML, IM, (PFIZER SERNA TOP BOOSTER) NM BRAIN SPECT W I 123 2021-11-16 21:54:00 Guanako Martínez [facility] DATMNJUAN Plan of Care Planned Activity Planned Date Details Comments Source Future Scheduled 2023-01-18 65+ PNEUMOCOCCAL [facility] Test 06:36:57 VACCINE (1 - PCV) [code = 65+ PNEUMOCOCCAL VACCINE (1 - PCV)] Future Scheduled 2023-01-18 Hepatitis C screening [facility] Test 06:36:57 (procedure) [code = 562780102] Future Scheduled 2023-01-18 SHINGLES VACCINES (1 [facility] Test 06:36:57 of 2) [code = SHINGLES VACCINES (1 of 2)] Future Scheduled 2023-01-18 BREAST CANCER [facility] Test 06:36:57 SCREENING [code = BREAST CANCER SCREENING] Future Scheduled 2023-01-18 COLONOSCOPY SCREENING [facility] Test 06:36:57 [code = COLONOSCOPY SCREENING] Future Scheduled 2023-01-18 COVID-19 [facility]ACCINE ([facility] 06:36:57 Booster for Moderna series) [code = COVID-19 VACCINE (4 - Booster for Moderna series)] Future Scheduled 2023-01-18 INFLUENZA VACCINE [facility] Test 06:36:57 [code = INFLUENZA VACCINE] Future Scheduled 2022-02-13 65+ [facility]OCOCCAL [facility] Test 16:16:29 VACCINE (1 of 4 - PCV13) [code = 65+ PNEUMOCOCCAL VACCINE (1 of 4 - PCV13)] Future Scheduled 2022-02-13 Hepatitis C screening [facility] Test 16:16:29 (procedure) [code = 712833396] Future Scheduled 2022-02-13 BREAST CANCER [facility] Test 16:16:29 SCREENING [code = BREAST CANCER SCREENING] Future Scheduled 2022-02-13 COLONOSCOPY SCREENING [facility] Test 16:16:29 [code = COLONOSCOPY SCREENING] Future Scheduled 2022-02-13 SHINGLES VACCINES (#1) [facility] Test 16:16:29 [code = SHINGLES VACCINES (#1)] Future Scheduled 2022-02-13 INFLUENZA VACCINE [facility] Test 16:16:29 [code = INFLUENZA VACCINE] Encounters Start End Encounter Admission Attending Care Care Encounter Source Date/Time Date/Time Type Type Clinicians Facility Department ID 2022-11-16 Outpatient MENDOZA, Na [facility] [employer] [id number] 2 Common 14:40:00 [id number] [facility] 2021-12-01 Outpatient Mendoza, Na [facility] [id number] 2 Common 09:31:00 [facility] 2021-11-29 Outpatient Mendoza, Na [facility] [id number] 2 Common 08:18:01 [facility] 2021-11-09 Outpatient Mendoza, Na [facility] [id number] 2 Common 14:07:56 [id number] [facility] 2021-11-09 Outpatient Mendoza, Na [facility] [id number] 2 Common 14:01:51 [id number] [facility] 2021-11-09 Outpatient Mendoza, Na [facility] [id number] 2 Common 13:39:08 [id number] [facility] 2021-11-09 Outpatient Mendoza, Na STLMLC STLMLC [id number] 2 Common 13:35:24 [id number] [facility] 2021-11-09 Outpatient Mendoza, Na STLMLC STLMLC [id number] 2 Common 13:34:10 [id number] [facility] 2021-11-09 Outpatient Mendoza, Na STLMLC STLMLC [id number] 2 Common 12:57:22 [id number] [facility] 2021-11-09 Outpatient Mendoza, Na STLMLC STLMLC [id number] 2 Common 12:45:46 [id number] [facility] 2021-11-09 Outpatient Mendoza, Na STLMLC STLMLC [id number] 2 Common 12:40:05 [id number] [facility] 2021-11-09 Outpatient Mendoza, Na STLMLC STLMLC [id number] 2 Common 12:31:03 [id number] [facility] 2021-11-09 Outpatient Mendoza, Na STLMLC STLMLC [id number] 2 Common 12:03:47 [id number] [facility] 2021-11-09 Outpatient Mendoza, Na STLMLC STLMLC [id number] 2 Common 12:03:01 [id number] [facility] 2021-11-09 Outpatient Mendoza, Na STLMLC STLMLC [id number] 2 Common 11:36:28 [id number] [facility] 2021-11-09 Outpatient Mendoza, Na STLMLC STLMLC [id number] 2 Common 11:35:53 [id number] [facility] 2021-11-09 Outpatient Mendoza, Na STLMLC STLMLC [id number] 2 Common 11:18:12 [id number] [facility] 2021-11-09 Outpatient Mendoza, Na STLMLC STLMLC [id number] 2 Common 11:17:41 [id number] [facility] 2021-11-09 Outpatient Mendoza, Na STLMLC STLMLC [id number] 2 Common 11:04:41 [id number] [facility] 2023-02-09 2023-02-09 Outpatient R HILLARY [facility] [id number] Univers 08:30:00 08:30:00 IGNACIO itwes of [facility] 2023-01-03 2023-01-03 [facility] 1.2.840.114 [id number] Univers 00:00:00 00:00:00 Jacobo HEALTH 350.1.13.10 it y of [place] 4.2.7.2.686 Telly as JIGAR?BLEA [phone] [address] OFFICE [facility] 2022-12-20 2022-12-20 [facility] 1.2.840.114 [id number] Univers 00:00:00 00:00:00 Secure Msg Ignacio HEALTH 350.1.13.10 ity of [place] 4.2.7.2.686 Telly as JIGAR?BLEA [phone] [facility] [address] OFFICE [facility] 2022-11-27 2022-11-27 [facility] 1.2.840.114 [id number] Univers 00:00:00 00:00:00 Ignacio HEALTH 350.1.13.10 it y of [place] 4.2.7.2.686 Telly as JIGAR?BLEA [phone] [facility] [address] OFFICE [facility] 2022-11-23 2022-11-23 [facility] 1.2.840.114 [id number] Univers 00:00:00 00:00:00 Secure Msg Ignacio HEALTH 350.1.13.10 ity of [place] 4.2.7.2.686 Telly as JIGAR?BLEA [phone] [address] OFFICE [facility] 2022-11-16 2022-11-16 (TEL) [employer] [id number] mmon 00:00:00 00:00:00 [facility] 2022-11-13 2022-11-13 [facility] 1.2.840.114 [id number] Univers 00:00:00 00:00:00 Secure Msg Ignacio HEALTH 350.1.13.10 ity of [place] 4.2.7.2.686 Telly as JIGAR?BLEA [phone] Wi eder [address] MEDICAL OFFICE BUILDING 2022-11-01 2022-11-01 Telephone Hillary [facility] [id number] [id number] Univers 00:00:00 00:00:00 Ignacio HEALTH 350.1.13.10 it y of [place] 4.2.7.2.686 Telly as JIGAR?BLEA [phone] Wi eder [address] MEDICAL OFFICE BUILDING 2022-10-26 2022-10-26 Patient Hillary [facility] 1.2.840.114 [id number] Univers 00:00:00 00:00:00 Secure Msg Ignacio HEALTH 350.1.13.10 ity of [place] 4.2.7.2.686 Telly as JIGAR?BLEA [phone] [facility] [address] MEDICAL OFFICE [facility] 2022-10-17 2022-10-17 [facility] 1.2.840.114 [id number] Univers 00:00:00 00:00:00 Secure Msg Ignacio HEALTH 350.1.13.10 ity of [place] 4.2.7.2.686 Telly as JIGAR?BLEA [phone] [address] OFFICE [facility] 2022-10-12 2022-10-12 Patient Hillary [facility] 1.2.840.114 [id number] Univers 00:00:00 00:00:00 Secure Msg Ignacio HEALTH 350.1.13.10 ity of [place] 4.2.7.2.686 Telly as JIGAR?BLEA [phone] [address] OFFICE [facility] 2022-10-05 2022-10-05 Patient Hillary [facility] 1.2.840.114 [id number] Univers 00:00:00 00:00:00 Secure Msg Ignacio HEALTH 350.1.13.10 ity of [place] 4.2.7.2.686 Telly as JIGAR?BLEA [phone] [address] OFFICE [facility] 2022-10-05 2022-10-05 Telephone Hillary [facility] [id number] Univers 00:00:00 00:00:00 Ignacio HEALTH 350.1.13.10 it y of [place] 4.2.7.2.686 Telly as JIGAR?BLEA [phone] Me eder [place] [address] [facility] OFFICE [facility] 2022-08-22 2022-08-22 Telephone Hillary [facility] 1.2.835.157 [id number] Univers 00:00:00 00:00:00 Ignacio HEALTH 350.1.13.10 it y of [place] 4.2.7.2.686 Telly as JIGAR?BLEA [phone] Wi eder [place] 044 [facility] 2022-08-22 2022-08-22 Patient Doctor [facility] 1.2.840.114 [id number] Univers 00:00:00 00:00:00 Secure Msg Unassigned, HEALTH 350.1.13.10 ity of [place] 4.2.7.2.686 Telly as JIGAR?BLEA [phone] Me eder [place] [address] [facility] OFFICE [facility] 2022-08-22 2022-08-22 Patient Doctor [facility] 1.2.840.114 [id number] Univers 00:00:00 00:00:00 Secure Msg Unassigned, HEALTH 350.1.13.10 ity of [place] 4.2.7.2.686 Telly as JIGAR?BLEA [phone] Wi eder [place] 044 [facility] 2022-08-21 2022-08-21 Health Claims Examiner Lab, Ang - Db [facility] 1.2.840.1 14 [id number] Univers 09:45:00 09:45:00 Visit Ignacio Thornton HEALTH 350.1.13.10 ity of [place] 4.2.7.2.686 Telly as JIGAR?BLEA [phone] Wi eder [place] [address] [facility] OFFICE [facility] 2022-08-21 2022-08-21 Outpatient R HILLARY [facility] [id number] Univers 08:00:00 09:28:48 IGNACIO ity of [facility] 2022-08-21 2022-08-21 Office Hillary [facility] 1.2.840.114 [id number] Univers 08:00:00 09:28:48 Visit Ignacio HEALTH 350.1.13.10 it y of [place] 4.2.7.2.686 Telly as JIGAR?BLEA [phone] Wi eder KELLEY [address] [place] [address] MEDICAL OFFICE [facility] 2022-08-16 2022-08-16 Patient Hillary [facility] 1.2.840.114 [id number] Univers 00:00:00 00:00:00 Secure Msg Ignacio HEALTH 350.1.13.10 ity of [place] 4.2.7.2.686 Telly as JIGAR?BLEA [phone] [facility] [address] OFFICE [facility] 2022-08-04 2022-08-04 [facility] 1.2.840.114 [id number] Univers 00:00:00 00:00:00 Ignacio HEALTH 350.1.13.10 it [facility] 4.2.7.2.686 Telly as JIGAR?BLEA [phone] Wi eder [address] MEDICAL OFFICE [facility] 2022-08-01 2022-08-01 [facility] 1.2.840.114 [id number] Univers 00:00:00 00:00:00 Ignacio HEALTH 350.1.13.10 it y of [place] 4.2.7.2.686 Telly as JIGAR?BLEA [phone] [facility] [address] OFFICE [facility] 2022-08-01 2022-08-01 [facility] 1.2.840.114 [id number] Univers 00:00:00 00:00:00 Secure Msg Ignacio HEALTH 350.1.13.10 ity of [place] 4.2.7.2.686 Telly as JIGAR?BLEA [phone] [address] MEDICAL OFFICE [facility] 2022-08-01 2022-08-01 Orders Doctor SEKOU 1.2.840.114 [id number] Univers 00:00:00 00:00:00 Only Unassigned, RUTH 350.1.13.10 ity of [place] [facility] 4.2.7.2.686 Telly as [phone] [address] 2022-07-31 2022-07-31 Imm/Inj Nurse, Calos Mcdaniels [facility] 1.2.840.114 [id number] Univers 10:20:00 10:40:00 Visit Ignacio Thornton 350.1.13.10 ity of [facility] 4.2.7.2.686 Telly as JIGAR?BLEA [phone] Wi eder [place] [address] [facility] OFFICE [facility] 2022-07-31 2022-07-31 Outpatient R HILLARY [facility] [id number] Univers 10:20:00 10:20:00 IGNACIO rosa [facility] 2022-07-21 2022-07-21 Health Claims Examiner Lab, Calos Mcdaniels [facility] 1.2.840.1 14 [id number] Univers 08:00:00 08:30:16 Visit Ignacio Thornton 350.1.13.10 ity of [place] 4.2.7.2.686 Telly as JIGAR?BLEA [phone] [facility] OFFICE [facility] 2022-07-21 2022-07-21 Outpatient R HILLARY [facility] [id number] Univers 08:00:00 08:00:00 IGNACIO rosa [facility] 2022-07-03 2022-07-03 Imm/Inj Vaccine, Calos Mcdaniels [facility] 1. 2.840.114 [id number] Univers 11:00:00 11:26:10 Visit Ignacio Thornton 350.1.13.10 ity of [place] 4.2.7.2.686 Telly as JIGAR?BLEA [phone] Wi eder KELLEY [address] [place] [address] OFFICE [facility] 2022-07-03 2022-07-03 Outpatient R HILLARY [facility] [id number] Univers 11:00:00 11:00:00 IGNACIO rosa [facility] 2022-06-21 2022-06-21 Telephone Hillary [facility] 1.2.916.552 [id number] Univers 00:00:00 00:00:00 Ignacio JACQUES 350.1.13.10 it y of [place] 4.2.7.2.686 Telly as JIGAR?BLEA [phone] Wi eder [place] [address] [facility] OFFICE [facility] 2022-06-21 2022-06-21 Patient Doctor [facility] 1.2.840.114 [id number] Univers 00:00:00 00:00:00 Secure Msg Unassigned, HEALTH 350.1.13.10 ity of [place] [facility] 4.2.7.2.686 Telly as JIGAR?BLEA [phone] Wi eder [address] OFFICE [facility] 2022-06-20 2022-06-20 Outpatient R HILLARY [facility] [id number] [facility] 10:00:00 10:27:56 IGNACIO shelley [facility] 2022-06-20 2022-06-20 Office Hillary [facility] 1.2.840.114 [id number] Univers 10:00:00 10:27:56 Visit Ignacio [facility] 350.1.13.10 it y of [place] 4.2.7.2.686 Telly as JIGAR?BLEA [phone] Wi eder [address] 2022-06-20 2022-06-20 Health Claims Examiner Lab, Ang - Db [facility] 1.2.840.1 14 [id number] Univers 09:30:00 10:11:33 Visit Ignacio Thornton [facility] 350.1.13.10 ity of [place] 4.2.7.2.686 Telly as JIGAR?BLEA [phone] Wi eder [place] [address] [facility] OFFICE [facility] 2022-06-20 2022-06-20 Outpatient R HILLARY [facility] [id number] [facility] 09:30:00 10:11:33 IGNACIO rosa [facility] 2022-06-20 2022-06-20 Outpatient R HILLARY [facility] [id number] Univers 10:00:00 10:00:00 IGNACIO rosa [facility] 2022-06-20 2022-06-20 Outpatient R HILLARY [facility] [id number] Univers 10:00:00 10:00:00 IGNACIO rosa [facility] 2022-06-20 2022-06-20 Health Claims Examiner Lab, Ang - Db [facility] 1.2.840.1 14 [id number] Univers 09:30:00 09:45:00 Visit Ignacio Thornton 350.1.13.10 ity of [place] 4.2.7.2.686 Telly as JIGAR?BLEA [phone] [facility] [address] MEDICAL OFFICE [facility] 2022-05-09 2022-05-09 Health Claims Examiner Lab, [facility] 1.2.840.1 14 [id number] Univers 13:00:00 13:15:00 Visit Ignacio Thornton 350.1.13.10 ity of [place] 4.2.7.2.686 Telly as JIGAR?BLEA [phone] [facility] [address] [facility] OFFICE [facility] 2022-05-09 2022-05-09 [facility] [id number] Univers 13:00:00 13:00:00 IGNACIO itwes [facility] 2022-04-21 2022-04-21 [facility] 1.2.840.114 [id number] Univers 00:00:00 00:00:00 Secure Msg Ignacio HEALTH 350.1.13.10 ity of [facility] 4.2.7.2.686 Telly as JIGAR?BLEA [phone] [facility] [address] [facility] OFFICE [facility] 2022-04-19 2022-04-19 [facility] [id number] Univers 08:02:21 23:59:00 IGNACIO ity of [facility] 2022-04-19 2022-04-19 Hospital [facility] 1.2.840.114 [id number] Univers 08:02:21 23:59:00 Encounter Ignacio HERNÁNDEZ 350.1.13.10 ity of [facility] 4.2.7.2.686 [place] [phone] [address] 2022-04-12 2022-04-12 [facility]phone [facility] 1.2.127.002 [id number] Univers 00:00:00 00:00:00 Ignacio HEALTH 350.1.13.10 it y of [place] 4.2.7.2.686 Telly as JIGAR?BLEA [phone] [address] MEDICAL OFFICE [facility] 2022-04-06 2022-04-06 Telephone Hillary [facility] 1.2.096.716 [id number] Univers 00:00:00 00:00:00 Ignacio HEALTH 350.1.13.10 it y of [place] 4.2.7.2.686 Telly as JIGAR?BLEA [phone] [address] MEDICAL OFFICE [facility] 2022-03-28 2022-03-28 Patient Hillary [facility] 1.2.840.114 [id number] Univers 00:00:00 00:00:00 Secure Msg Ignacio HEALTH 350.1.13.10 ity of [place] 4.2.7.2.686 Telly as JIGAR?BLEA [phone] [address] OFFICE [facility] 2022-03-28 2022-03-28 Orders Doctor SAPP 1.2.840.114 [id number] Univers 00:00:00 00:00:00 Only Unassigned, RUTH 350.1.13.10 ity of [facility] 4.2.7.2.686 Telly as [phone] [address] 2022-03-24 2022-03-24 Orders Doctor SEKOU 1.2.840.114 [id number] Univers 00:00:00 00:00:00 Only Unassigned, RUTH 350.1.13.10 ity of [facility] 4.2.7.2.686 Telly as [phone] [address] 2022-03-20 2022-03-20 Orders Doctor SAPP 1.2.840.114 [id number] Univers 00:00:00 00:00:00 Only Unassigned, RUTH 350.1.13.10 ity of [facility] 4.2.7.2.686 Telly as [phone] [address] 2022-03-17 2022-03-17 [facility] 1.2.840.114 [id number] Univers 11:00:00 11:34:14 Visit Ignacio HEALTH 350.1.13.10 it y of [place] 4.2.7.2.686 Telly as JIGAR?BLEA [phone] Me dical [place] [address] MEDICAL OFFICE [facility] 2022-03-17 2022-03-17 Outpatient R [facility] [facility] [id number] Univers 11:00:00 11:34:14 IGNACIO shelley [facility] 2022-03-17 2022-03-17 Outpatient R HILLARY [facility] [id number] Univers 11:00:00 11:00:00 IGNACIOSTEPHEN rosa [facility] 2022-03-17 2022-03-17 Health Claims Examiner Lab, Ang - [facility] 1.2.840.1 14 [id number] Univers 09:45:00 10:00:00 Visit Ignacio Thornton Raise Your Flag 350.1.13.10 ity of [place] 4.2.7.2.686 Telly as JIGAR?BLEA [phone] Wi eder KELLEY 353 [facility] OFFICE [facility] 2022-03-17 2022-03-17 Patient Hillary [facility] 1.2.840.114 [id number] Univers 00:00:00 00:00:00 Secure Msg Ignacio [employer] Your [employer] 350.1.13.10 ity of [place] 4.2.7.2.686 Telly as JIGAR?BLEA [phone] Wi eder KELLEY 044 [facility] 2022-03-14 2022-03-14 Health Claims Examiner Lab, Ang - [facility] 1.2.840.1 14 [id number] Univers 11:15:00 11:30:00 Visit Ignacio Thornton 350.1.13.10 ity of [place] 4.2.7.2.686 Telly as JIGAR?BLEA [phone] Wi dical WARREN 353 [facility] OFFICE [facility] 2022-03-14 2022-03-14 Outpatient R YAJAIRAWilfred [facility] [id number] Univers 11:15:00 11:15:00 IGNACIO rosa [facility] 2022-03-14 2022-03-14 Outpatient R HILLARY [facility] [id number] Univers 11:15:00 11:15:00 IGNACIO rosa [facility] 2022-03-14 2022-03-14 Telephone Hillary [facility] 1.2.051.794 [id number] Univers 00:00:00 00:00:00 Ignacio HEALTH 350.1.13.10 it y of [place] 4.2.7.2.686 Telly as JIGAR?BLEA [phone] Wi eder [address] MEDICAL OFFICE [facility] 2022-03-07 2022-03-07 Telephone Hillary DCMARY JO 1.2.374.012 [id number] Univers 00:00:00 00:00:00 Ignacio HEALTH 350.1.13.10 it y of [place] 4.2.7.2.686 Telly as JIGAR?BLEA [phone] [address] OFFICE [facility] 2022-02-24 2022-02-24 Telephone Hillary [facility] 1.2.262.577 [id number] Univers 00:00:00 00:00:00 Ignacio HEALTH 350.1.13.10 it y [facility] 4.2.7.2.686 Telly as JIGAR?BLEA [phone] [address] MEDICAL OFFICE [facility] 2022-02-23 2022-02-23 Orders Doctor SEKOU 1.2.840.114 [id number] Univers 00:00:00 00:00:00 Only Unassigned, RUTH 350.1.13.10 ity of [place] [facility] 4.2.7.2.686 Telly as [phone] [address] 2022-02-15 2022-02-15 Telephone Hillary DCMARY JO 1.2.315.496 [id number] Univers 00:00:00 00:00:00 Ignacio HEALTH 350.1.13.10 it y of [place] 4.2.7.2.686 Telly as JIGAR?BLEA [phone] [address] OFFICE [facility] 2022-02-14 2022-02-14 Health Claims Examiner Lab, Ang - Arslan [facility] 1.2.840.1 14 [id number] Univers 09:30:00 10:12:56 Visit Ignacio Thornton SAWYER 350.1.13.10 ity [facility] 4.2.7.2.686 Telly as JIGAR?BLEA [phone] [address] [facility] 2022-02-14 2022-02-14 Health Claims Examiner Lab, Ang - Db [facility] 1.2.840.1 14 [id number] Univers 09:30:00 09:45:00 Visit Ignacio Thornton 350.1.13.10 ity [facility] 4.2.7.2.686 Telly as JIGAR?BLEA [phone] [facility] 353 [facility] 2022-02-14 2022-02-14 Out[facility] [id number] Univers 09:00:00 09:40:42 IGNACIO rosa [facility] 2022-02-14 2022-02-14 [facility] 1.2.840.114 [id number] Univers 09:00:00 09:40:42 Visit Ignacio JACQUES 350.1.13.10 it y of [place] 4.2.7.2.686 Telly as JIGAR?BLEA [phone] [address] 2022-02-14 2022-02-14 Outpatient R HILLARY [facility] [id number] Univers 09:00:00 09:40:42 IGNACIO rosa [facility] 2022-02-14 2022-02-14 [facility] [id number] Univers 09:30:00 09:30:00 IGNACIO rosa [facility] 2022-02-14 2022-02-14 Orders Doctor SAPP 1..840.114 [id number] Univers 00:00:00 00:00:00 Only Unassigned, RUTH 350.1.13.10 ity of [place] [facility] 4.2.7.2.686 Telly as [phone] [address] 2022-02-14 2022-02-14 [facility] 1.2.446.068 [id number] Univers 00:00:00 00:00:00 Ignacio JACUQES 350.1.13.10 it y of [place] 4.2.7.2.686 Telly as JIGAR?BLEA [phone] [address] 2022-02-14 2022-02-14 Telephone Hillary [facility] 1.2.421.601 [id number] Univers 00:00:00 00:00:00 [employer] 350.1.13.10 it y of [place] 4.2.7.2.686 Telly as JIGAR?BLEA [phone] Wi eder KELLEY [address] [place] [facility] 2022-02-13 2022-02-13 Pre Visit FANY Sandoval 1.2.084.399 [id number] Univers 00:00:00 00:00:00 Outreach Madeleine THOMPSON 350.1.13.10 ity of [place] 4.2.7.2.686 [place] [phone] [place] [address] [place] 2022-01-05 2022-01-05 (TEL) STLMLC STLMLC [id number] Co mmon 00:00:00 00:00:00 [facility] 2021-12-01 2021-12-01 OFFICE STLMLC STLMLC [id number] Co mmon 00:00:00 00:00:00 VISIT [facility] PT - [facility] LEVEL 4 [facility] 2021-11-23 2021-11-23 (TEL) STLMLC STLMLC [id number] Co mmon 00:00:00 00:00:00 [facility] 2021-11-18 2021-11-18 (TEL) STLMLC STLMLC [id number] Co mmon 00:00:00 00:00:00 [facility] 2021-11-16 2021-11-[address]1 [id number] Methodi 09:00:51 23:59:00 Encounter Guanako Hidalgo 30979.1.[address] 3.430.2.7 Hospit a .3.061702 l .8 2021-11-16 2021-11-[address]1 [id number] Methodi 09:00:30 23:59:00 Encounter Guanako Hidalgo 33026.1.[address] 3.430.2.7 Hospit a .3.334749 l .8 2021-11-16 2021-11-16 Travel 1.2.840.1 1.2.752.476 [id number] Methodi 00:00:00 00:00:[address] 3.430.2.7 0.2.7.3.698 Ho spita .3.169041 084.8 l .8 2021-10-17 2021-10-17 (TEL) STLMLC STLMLC [id number] Co mmon 00:00:00 00:00:00 [facility] - [facility] 2021-10-05 2021-10-05 Travel 1.2.840.1 1.2.681.696 [id number] Methodi 00:00:00 00:00:[address] 3.430.2.7 0.2.7.3.698 Ho spita .3.657140 084.8 l .8 2021-10-04 2021-10-04 Transcribe Tanya 1Beverly2.840.1 [id number] Methodi 00:00:00 00:00:00 Orders Guanako Hidalgo 21959.1.[address] 3.430.2.7 Hospit a .3.697133 l .8 2021-08-30 2021-08-30 (TEL) STLMLC STLMLC [id number] Co mmon 00:00:00 00:00:00 [facility] 2021-08-29 2021-08-29 SUB ANNUAL STLMLC STLMLC [id number] Common 00:00:00 00:00:00 MCR Spirit WELLNESS - [facility] VISIT [facility] 2021-08-29 2021-08-29 OFFICE STLMLC STLMLC [id number] Co mmon 00:00:00 00:00:00 VISIT EST Spir it PT LEVEL 3 - [facility] 2021-08-12 2021-08-12 (COVID STLMLC STLMLC [id number] Co mmon 00:00:00 00:00:00 Inj) COVID Spi rit Injection - [facility] 2021-08-12 2021-08-12 Orders Doctor SEKOU 1.2.840.114 [id number] Univers 00:00:00 00:00:00 Only Unassigned, RUTH 350.1.13.10 ity of [place] [facility] 4.2.7.2.686 Telly as [phone] [place] [address] [place] 2021-08-10 2021-08-10 (TEL) STLMLC STLMLC [id number] Co mmon 00:00:00 00:00:00 [facility] 2021-07-15 2021-07-15 ([place]) Nurse STLMLC STLMLC [id number] Common 00:00:00 00:00:00 Visit [facility] 2021-06-02 2021-06-02 OFFICE STLMLC STLMLC [id number] Co mmon 00:00:00 00:00:00 VISIT [facility] PT [facility] [address] 2021-04-06 2021-04-06 (TEL) STLMLC STLMLC [id number] Co mmon 00:00:00 00:00:00 [facility] 2021-03-09 2021-03-09 (TEL) STLMLC STLMLC [id number] Co mmon 00:00:00 00:00:00 [facility] 2021-02-10 2021-02-10 OFFICE STLMLC STLMLC [id number] Co mmon 00:00:00 00:00:00 VISIT [facility] PT [address] 2020-12-29 2020-12-29 Outpatient STLMLC STLMLC [id number] Common 00:00:00 00:00:00 [facility] 2020-12-28 2020-12-28 Outpatient STLMLC STLMLC [id number] Common 00:00:00 00:00:00 [facility] 2020-12-08 2020-12-08 Outpatient STLMLC STLMLC [id number] Common 00:00:00 00:00:00 [facility] 2020-11-20 2020-11-20 Outpatient Frances SAUCEDO DCMARY JO [facility] [id number] Univers 09:50:00 09:50:00 SHIRA y [facility] 2020-11-15 2020-11-15 Outpatient STLMLC STLMLC [id number] Common 00:00:00 00:00:00 [facility] 2020-10-23 2020-10-23 Outpatient R SHERYL [facility] [id number] Univers 09:40:00 09:40:00 SHIRA corazony [facility] 2020-10-10 2020-10-10 Letter SEKOU Ruiz 1.2.840.114 [id number] 00:00:00 00:00:00 (Out) Sonia T RUTH 350.1.13.10 HOSPITAL 2.7.2.686 [id number] [facility] 2020-10-10 2020-10-10 Telephone PcpSEKOU.2.343.739 [id number] 00:00:00 00:00:00 Patient RUTH 350.1.13.10 Does Not HOSPITAL 4.2.7.2.686 Have A [id number] [id number] 2020-10-10 2020-10-10 Letter SEKOU Ruiz 1.2.840.114 [id number] Univers 00:00:00 00:00:00 (Out) Sonia T RUTH 350.1.13.10 it y of HOSPITAL 4.2.7.2.686 Telly as [phone] [address] 2020-10-10 2020-10-10 Telephone PcpSEKOU 1.2.353.033 [id number] Univers 00:00:00 00:00:00 Patient RUTH 350.1.13.10 it y of [place] HOSPITAL 4[place].7.2.[place] Have A [phone] [address] 2020-10-09 2020-10-09 Outpatient R MARCELO [facility] [id number] Univers 09:00:00 09:00:00 MIRANDA [facility] 2020-10-09 2020-10-09 Laboratory Lab, [facility] 1.2.840.114 [id number] 08:37:26 08:57:26 Only Fam Pob I Health 350.1.13.10 [place] 4.2.7.2.686 Professio [phone] nal [address] 2020-10-09 2020-10-09 Laboratory Lab, Adc Fam Pob I [facility] 1.2. 840.114 [id number] [facility] 08:37:26 08:57:26 Only [facility] 350.1.13.10 itwes bernardo [place] 4.2.7.2.686 Telly as Duaneio [phone] Me dical nal [address] [place] [address] 2020-09-01 2020-09-01 Outpatient STLMLC STLMLC [id number] Common 00:00:00 00:00:00 [facility] 2020-08-25 2020-08-25 Outpatient STLMLC STLMLC [id number] Common 00:00:00 00:00:00 [facility] 2020-08-21 2020-08-21 Outpatient STLMLC STLMLC [id number] Common 00:00:00 00:00:00 [facility] 2020-05-25 2020-05-25 [facility] [id number] Common 08:00:00 08:00:00 [address] [place] [address] Sp[address] [facility] 2020-05-20 2020-05-20 Outpatient [facility] [id number] Common 10:08:00 10:08:00 [address] [place] [address] Sp[address] [facility] 2020-03-30 2020-03-30 Outpatient [facility] [id number] Common 14:39:00 14:39:00 [address] [place] [address] Sp[address] Family [facility] 2020-02-10 2020-02-10 Outpatient [facility] [id number] Common 11:21:00 11:21:00 [address] [place] [address] Family [facility] 2020-01-30 2020-01-30 Outpatient [facility] [id number] Common 08:00:00 08:00:00 [address] [place] [address] Family [facility] 2020-01-22 2020-01-22 Outpatient [facility] [id number] Common 13:30:00 13:30:00 [facility] 2019-12-23 2019-12-23 Outpatient [facility] [id number] Common 14:13:00 14:13:00 [address] [place] [address] Sp[address] [facility] 2019-12-19 2019-12-19 Outpatient [facility] [id number] Common 14:40:00 14:40:00 [address] [place] [address] Sp[address] [facility] 2019-11-14 2019-11-14 Outpatient [facility] [id number] Common 11:20:00 11:20:00 [address] [place] [address] Sp[address] [facility] 2019-10-30 2019-10-30 Outpatient [facility] [id number] Common 08:00:00 08:00:00 [address] [place] [address] Sp[address] [facility] 2019-10-24 2019-10-24 Outpatient [facility] [id number] Common 16:35:00 16:35:00 [address] [place] [address] Sp[address] [facility] 2019-10-16 2019-10-16 Outpatient [facility] [id number] Common 08:51:00 08:51:00 [address] [place] [address] Sp[address] [facility] 2019-07-10 2019-07-10 Outpatient [facility] [id number] Common 08:40:00 08:40:00 [address] [place] [address] Sp[address] [facility] 2019-04-29 2019-04-29 Outpatient [facility] [id number] Common 08:40:00 08:40:00 [address] [place] [address] Sp[address] [facility] 2019-04-02 2019-04-02 Outpatient [facility] [id number] Common 11:07:00 11:07:00 t Urgent Urgent Care S pirit Care [facility] 2018-11-26 2018-11-26 Outpatient [facility] [id number] Common 09:30:00 09:30:00 [address] [place] [address] [facility] 2018-06-19 2018-06-19 Outpatient Alf Schrader [id number] Common 08:15:00 08:15:00 [address] [place] [address] Sp[address] [facility] 2018-04-16 2018-04-16 Outpatient Alf Schrader [id number] Common 08:15:00 08:15:00 [address] [place] [address] Sp[address] [facility] 2018-01-10 2018-01-10 Outpatient Alf Schrader 12 [id number] Common 08:15:00 08:15:00 [address] [place] [address] Sp[address] [facility] Results Test Description Test Time Test Comments Results Result Comments Source CBC WITH DIFF 2022-08-21 20:06:54 Test Item Value Reference Range Interpretation Comme nts WBC (test code = 6690-2) See_Comment [A utomated message] The system which ge nerated this result transmit sabra reference range: 4.30 - 1 1.10 10*3/?L. The reference r augustine was not used to interpr et this result as normal/abnor mal. RBC (test code = 789-8) See_Comment [Au tomated message] The system which ge nerated this result transmit sabra reference range: 3.93 - 5 .25 10*6/?L. The reference r augustine was not used to interpr et this result as normal/abnor mal. HGB (test code = 718-7) 13.3 g/dL 11.6-15.0 HCT (test code = 4544-3) 42.0 % 35.7-45.2 MCV (test code = 787-2) 85.2 fL 80.6-95.5 MCH (test code = 785-6) 27.0 pg 25.9-32.8 MCHC (test code = 786-4) 31.7 g/dL 31.6-35.1 RDW-SD (test code = 50982-0) 42.5 fL 39.0-49.9 RDW-CV (test code = 788-0) 13.6 % 12.0-15.5 PLT (test code = 777-3) See_Comment [Au tomated message] The system which ge nerated this result transmit sabra reference range: 166 - 35 8 10*3/?L. The reference range was not used to interpret th is result as normal/abnormal . MPV (test code = 57285-4) 10.4 fL 9.5-12.9 NRBC/100 WBC (test code = See_Comment [ Automated message] The [id number]) system which [employer] nerated this result transmit sabra reference range: 0.0 - 10 .0 /100 WBCs. The reference r augustine was not used to interpr et this result as normal/abnor mal. NRBC x10^3 (test code = See_Comment [Au tomated message] The [id number]) system which ge nerated this result transmit sabra reference range: 10*3/?L. The reference range was not u sed to interpret this result as normal/abnormal . GRAN MAT (NEUT) % (test code 82.4 % = 770-8) IMM GRAN % (test code = 0.20 % [id number]) LYMPH % (test code = 736-9) 10.9 % MONO % (test code = 5905-5) 5.3 % EOS % (test code = 713-8) 0.7 % BASO % (test code = 706-2) 0.5 % GRAN MAT x10^3(ANC) (test 4.84 10*3/uL 1.88-7.09 code = 7913514235) IMM GRAN x10^3 (test code = 0.00-0.06 3761318889) LYMPH x10^3 (test code = 0.64 10*3/uL 1.32-3.29 L 731-0) MONO x10^3 (test code = 0.31 10*3/uL 0.33-0.92 L 742-7) EOS x10^3 (test code = 0.04 10*3/uL 0.03-0.39 711-2) BASO x10^3 (test code = 0.03 10*3/uL 0.01-0.07 704-7) Lab Interpretation (test Abnormal code = 72277-6) [facility] URINALYSIS W SPECIFIC [id number] 17:41:00 Test Item Value Reference Range Interpretation Comments POCT U SP GRAV (test code = 1.015 mg/dl 1.005-1.025 H 3255) POCT PH U (test code = 3254) neg 5-8 POCT U LEUK EST (test code = neg Negative - Negative 3263) POCT U NIT (test code = neg Negative - Negative 3262) POCT U PROT (test code = neg Negative - Negative 3259) POCT U GLU (test code = Negative - Negative 3256) POCT U KETONE (test code = neg Negative - Negative 3258) POCT U UROBILI (test code = neg 0.2-1 3260) POCT U BILI (test code = neg Negative - Negative 3261) POCT U BLD (test code = neg Negative - Negative 3257) POCT U COLOR (test code = light yellow 3266) POCT U APPEAR (test code = clear 3267) Lab Interpretation (test Abnormal code = 39422-9) [facility] URINALYSIS W SPECIFIC [id number] 17:41:00 Test Item Value Reference Range Interpretation Comments POCT U SP GRAV (test code = 1.015 mg/dl 1.005-1.025 H 3255) POCT PH U (test code = 3254) neg 5-8 POCT U LEUK EST (test code = neg Negative - Negative 3263) POCT U NIT (test code = neg Negative - Negative 3262) POCT U PROT (test code = neg Negative - Negative 3259) POCT U GLU (test code = Negative - Negative 3256) POCT U KETONE (test code = neg Negative - Negative 3258) POCT U UROBILI (test code = neg 0.2-1 3260) POCT U BILI (test code = neg Negative - Negative 3261) POCT U BLD (test code = neg Negative - Negative 3257) POCT U COLOR (test code = light yellow 3266) POCT U APPEAR (test code = clear 3267) Lab Interpretation (test Abnormal code = 11940-2) [facility] URINALYSIS W SPECIFIC [id number] 17:41:00 Test Item Value Reference Range Interpretation Comments POCT U SP GRAV (test code = 1.015 mg/dl 1.005-1.025 H 3255) POCT PH U (test code = 3254) neg 5-8 POCT U LEUK EST (test code = neg Negative - Negative 3263) POCT U NIT (test code = neg Negative - Negative 3262) POCT U PROT (test code = neg Negative - Negative 3259) POCT U GLU (test code = Negative - Negative 3256) POCT U KETONE (test code = neg Negative - Negative 3258) POCT U UROBILI (test code = neg 0.2-1 3260) POCT U BILI (test code = neg Negative - Negative 326) POCT U BLD (test code = neg Negative - Negative 3257) POCT U COLOR (test code = light yellow 3266) POCT U APPEAR (test code = clear 3267) Lab Interpretation (test Abnormal code = 08106-2) [facility] [id number] 20:50:55 Test Item Value Reference Range Interpretation Comments TSH (test code = See_Comment Biotin has been [id number]) reported to cau se a negative bias, interpret resul ts relative to pat niya's use of biotin. [Automated mess age] The system [employer] h generated this result transmitted ref erence range: 0.45 - 4 .70 mIU/L. The refe rence range was not u sed to interpret this result as normal/abnor mal. Lab Interpretation (test Normal code = 73647-2) [facility]
[2023-02-04 23:16] LABS: Absolute Lymphocytes (CBC) 0.8 K/uL (0.7-4.9); Hematocrit 39.5 % (36.0-45.0); Lymphocytes % 14.5 % (15.3-44.8); MCV 83.2 fL (80-100); MPV 7.8 fL (7.6-11.3); RBC Red Blood Cell Count 4.75 M/uL (3.86-4.86)
[2023-02-04] MEDS ORDERED: FAMOTIDINE 20 MG/2 ML VIAL IV ONE (23:18)
[2023-02-04] MEDS ORDERED: ONDANSETRON 4 MG/2 ML VIAL ONE (23:18)
[2023-02-04] MEDS ORDERED: NA CHLORIDE 0.9% 1,000 ML ONE (23:18)
[2023-02-04 23:41] LABS: Albumin 3.9 g/dL (3.4-5.0); Bilirubin Total 0.5 mg/dL (0.2-1.0); Potassium 3.5 mEq/L (3.5-5.1); Protein, Total 7.8 g/dL (6.4-8.2)
[2023-02-05 00:05] LABS: Specific Gravity > 1.030 (1.005-1.030); Urine Bacteria None Seen /HPF (<20); Urine Bilirubin NEGATIVE (Negative); Urine Blood Negative (Negative); Urine Clarity Clear (Clear); Urine Color Light-Yellow (Yellow); Urine Glucose 4+ (Over) (Negative); Urine Mucus Slight /HPF (None Seen); Urine Protein 2+ (Negative); Urine RBC <5 /HPF (None Seen); Urine Urobilinogen Normal (Normal); Urine pH 7.5 (5.0-7.0)
--- NOTE | 2023-02-05 00:38 | EDPHYS ---
Physician Documentation [facility] Name: Virginia Saucedo Age: 72 yrs Sex: Female : 1950 Arrival Date: 02/04/2023 Time: 22:07 Bed 18 Private MD: ED Physician Dank Art HPI: 02/04 22:39 This 72 yrs old Female presents to ER via Unassigned with complaints of kb Nausea/Vomiting. 22:39 The patient presents to the emergency department with nausea, vomiting. Onset: The kb symptoms/episode began/occurred this morning, at 09:30. Possible causes: unknown. The symptoms are aggravated by nothing. The symptoms are alleviated by nothing. Associated signs and symptoms: Pertinent positives: nausea, vomiting, Pertinent negatives: abdominal pain, diarrhea, fever. Severity of symptoms: At their worst the symptoms were moderate in the emergency department the symptoms are unchanged. The patient has not experienced similar symptoms in the past. The patient has not recently seen a physician. Historical: - Allergies: 23:01 No Known Allergies; vg1 - Home Meds: 23:01 metoprolol tartrate 100 mg Oral tab 1 tab once daily [Active]; clopidogrel oral vg1 [Active]; leflunomide oral [Active]; levothyroxine oral [Active]; rosuvastatin oral [Active]; Jardiance oral [Active]; Omeprazole Oral [Active]; - PMHx: 23:01 Diabetes - NIDDM; GERD; High Cholesterol; Hypertension; joint pain; THYROID CANCER; vg1 Lupus erythematosus; Rheumatoid arthritis; - PSHx: 23:01 Stented artery; vg1 - Immunization history:: Client reports receiving the 2nd dose of the Covid vaccine. - Social history:: Smoking status: Patient/guardian denies using tobacco, the patient reports quitting approximately 20 years ago. ROS: 22:39 Constitutional: Negative for fever, chills, and weight loss. kb 22:39 Abdomen/GI: Positive for nausea and vomiting, Negative for abdominal pain, diarrhea. 22:39 All other systems are negative. Exam: 22:39 Constitutional: This is a well developed, well nourished patient who is awake, alert, kb and in no acute distress. Head/Face: Normocephalic, atraumatic. ENT: Moist Mucous membranes Cardiovascular: Regular rate and rhythm with a normal S1 and S2. No gallops, murmurs, or rubs. No pulse deficits. Respiratory: Respirations even and unlabored. No increased work of breathing. Talking in full sentences Abdomen/GI: Soft, non-tender. No distention Skin: Warm, dry with normal turgor. Normal color. MS/ Extremity: Pulses equal, no cyanosis. Neurovascular intact. Full, normal range of motion. Neuro: Awake and alert, GCS 15, oriented to person, place, time, and situation. Moves all extremities. Normal gait. Vital Signs: 22:55 BP 148 / 89; Pulse 120; Resp 16; Temp 97.7(O); Pulse Ox 92% on R/A; vg1 23:07 Weight 77.56 kg; Height 5 ft. 0 in. ; vg1 23:30 BP 140 / 88; Pulse 114; Resp 16; Pulse Ox 92% ; vc1 23:42 Pulse Ox 87% on R/A; vc1 02/05 00:14 BP 120 / 63; Pulse 109; Resp 17; Pulse Ox 97% on 1.5 lpm NC; vc1 02/04 23:07 Body Mass Index 33.40 (77.56 kg, 152.4 cm) vg1 02/04 23:42 placed on 1.5L nasal canula vc1 MDM: 22:10 Patient medically screened. kb 22:39 Data reviewed: vital signs, nurses notes. kb 02/05 00:25 Differential diagnosis: Nonspecific abd pain, gastritis, viral gastroenteritis. kb Consideration of Admission/Observation Patient was admitted/placed on observation. Management of patient was discussed with the following: Hospitalist: WILFRID Glez. Counseling: I had a detailed discussion with the patient and/or guardian regarding: the historical points, exam findings, and any diagnostic results supporting the discharge/admit diagnosis, lab results, radiology results, the need for further work-up and treatment in the hospital. ED course: Pt oxygen saturation decreased to 87%. Pt states her normal is 95%. Reports chronic SOB on exertion. Sat dropped while at rest. Pt placed on O2, sat increased to 97%. Will admit for obs. 02/04 22:15 Order name: CBC with Diff; Complete Time: 23:29 kb 02/04 22:15 Order name: CMP; Complete Time: 23:53 kb 02/04 22:15 Order name: Lipase; Complete Time: 23:53 kb 02/04 22:15 Order name: Urinalysis w/ reflexes; Complete Time: 00:05 kb 02/05 00:20 Order name: BNP; Complete Time: 00:57 kb 02/05 00:20 Order name: COVID-19 SARS RT PCR; Complete Time: 01:19 kb 02/05 00:20 Order name: Troponin High Sensitivity; Complete Time: 00:57 kb 02/04 22:15 Order name: CT Abd/Pelvis - IV Contrast Only kb 02/04 23:58 Order name: Chest Single View XRAY kb 02/05 00:20 Order name: EKG; Complete Time: 00:21 kb 02/04 22:15 Order name: IV Saline Lock; Complete Time: 23:10 kb 02/04 22:15 Order name: Labs collected and sent; Complete Time: 23:10 kb 02/05 00:20 Order name: EKG - Nurse/Tech; Complete Time: 00:33 kb Administered Medications: 02/04 23:15 Drug: Famotidine IVP 20 mg Route: IVP; Site: right antecubital; 1 02/05 01:45 Follow up: Response: No adverse reaction 3 02/04 23:16 Drug: Ondansetron IVP 4 mg Route: IVP; Site: right antecubital; 1 02/05 01:46 Follow up: Response: No adverse reaction; Nausea is decreased 3 02/04 23:18 Drug: NS 0.9% IV 1000 ml Route: IV; Rate: 1 bolus; Site: right antecubital; 1 02/05 01:45 Follow up: Response: No adverse reaction; IV Status: Completed infusion 3 Disposition: 00:45 Co-signature as Attending Physician, Dank TAPIA was immediately available on-site ms3 in the Emergency Department for consultation in the care of the patient. Disposition Summary: 02/05/23 00:38 Hospitalization Ordered Hospitalization Status: Observation kb Provider: Sander Barber Location: Telemetry/MedSur (observation) kb Condition: Stable kb Problem: new kb Symptoms: are unchanged kb Bed/Room Type: Standard Room Assignment: 411(02/05/23 01:23) Diagnosis - Nausea with vomiting, unspecified kb - Hypoxia kb Forms: - Medication Reconciliation Form kb - SBAR form kb Signatures: Dispatcher [employer] Cindi Wilkins, PATIENT SERVICES ASSISTANT-C PATIENT SERVICES ASSISTANT-Tri Vo RN RN Mckayla Franklin RN RN vg1 Dank Art, DO ms3 Skye Nieto RN RN vc1 Valery Rodriguez, JUAN MIGUEL BULLARD sb4 Lorenza Soria RN kd3 Corrections: (The following items were deleted from the chart) 01:23 00:38 kb eleuterio
--- NOTE | 2023-02-05 00:38 | ER ---
Nurse's Notes [facility] Name: Virginia Saucedo Age: 72 yrs Sex: Female : 1950 Arrival Date: 02/04/2023 Time: 22:07 Bed 18 Private MD: Diagnosis: Nausea with vomiting, unspecified;Hypoxia Presentation: 02/04 22:55 Chief complaint: Patient states: N/V that began today at 10am, states intermittent body vg1 shakes, denies ABD pain or diarrhea. Coronavirus screen: Vaccine status: Patient reports receiving the 2nd dose of the covid vaccine. Ebola Screen: Patient negative for fever greater than or equal to 101.5 degrees Fahrenheit, and additional compatible Ebola Virus Disease symptoms Patient denies exposure to infectious person. Patient denies travel to an Ebola-affected area in the 21 days before illness onset. Initial Sepsis Screen: Does the patient meet any 2 criteria? HR > 90 bpm. Does the patient have a suspected source of infection? No. Patient's initial sepsis screen is negative. Risk Assessment: Do you want to hurt yourself or someone else? Patient reports no desire to harm self or others. Onset of symptoms was February 04, 2023. 22:55 Method Of Arrival: Wheelchair vg1 22:55 Acuity: ANUSHA 3 vg1 Triage Assessment: 23:01 General: Appears in no apparent distress. uncomfortable, Behavior is cooperative. Pain: vg1 Denies pain. Cardiovascular: Patient's skin is warm and dry. Edema pitting to left foot. GI: Reports nausea, vomiting, since this morning at 10am. Historical: - Allergies: 23:01 No Known Allergies; vg1 - Home Meds: 23:01 metoprolol tartrate 100 mg Oral tab 1 tab once daily [Active]; clopidogrel oral vg1 [Active]; leflunomide oral [Active]; levothyroxine oral [Active]; rosuvastatin oral [Active]; Jardiance oral [Active]; Omeprazole Oral [Active]; - PMHx: 23:01 Diabetes - NIDDM; GERD; High Cholesterol; Hypertension; joint pain; THYROID CANCER; vg1 Lupus erythematosus; Rheumatoid arthritis; - PSHx: 23:01 Stented artery; vg1 - Immunization history:: Client reports receiving the 2nd dose of the Covid vaccine. - Social history:: Smoking status: Patient/guardian denies using tobacco, the patient reports quitting approximately 20 years ago. Screenin:11 [facility] ED Fall Risk Assessment (Adult) History of falling in the last 3 months, vc1 including since admission No falls in past 3 months (0 pts) Confusion or Disorientation No (0 pts) Intoxicated or Sedated No (0 pts) Impaired Gait No (0 pts) Mobility Assist Device Used No (0 pt) Altered Elimination No (0 pt) Score/Fall Risk Level 0 - 2 = Low Risk Oriented to surroundings, Maintained a safe environment, Educated pt \T\ family on fall prevention, incl call for assistance when getting out of bed. Abuse screen: Denies threats or abuse. Nutritional screening: No deficits noted. Tuberculosis screening: No symptoms or risk factors identified. Assessment: 02/05 00:13 Reassessment: Patient and/or family updated on plan of care and expected duration. Pain vc1 level reassessed. Patient is alert, oriented x 3, equal unlabored respirations, skin warm/dry/pink. Patient states feeling better. Patient states symptoms have improved. GI: Patient currently denies nausea. Vital Signs: 02/04 22:55 BP 148 / 89; Pulse 120; Resp 16; Temp 97.7(O); Pulse Ox 92% on R/A; vg1 23:07 Weight 77.56 kg; Height 5 ft. 0 in. ; vg1 23:30 BP 140 / 88; Pulse 114; Resp 16; Pulse Ox 92% ; vc1 23:42 Pulse Ox 87% on R/A; vc1 02/05 00:14 BP 120 / 63; Pulse 109; Resp 17; Pulse Ox 97% on 1.5 lpm NC; vc1 02/04 23:07 Body Mass Index 33.40 (77.56 kg, 152.4 cm) vg1 02/04 23:42 placed on 1.5L nasal canula vc1 ED Course: 22:10 Patient arrived in ED. es 22:10 Cindi Batista FNP-C is PHCP. kb 22:10 Dank Art DO is Attending Physician. kb 23:01 Triage completed. vg1 23:01 Arm band placed on. vg1 23:10 CBC with Diff Sent. vc1 23:10 CMP Sent. vc1 23:10 Lipase Sent. vc1 23:11 Patient has correct armband on for positive identification. Bed in low position. Call vc1 light in reach. Client placed on continuous cardiac and pulse oximetry monitoring. NIBP monitoring applied. 02/05 00:11 CT Abd/Pelvis - IV Contrast Only In Process Unspecified. EDMS 00:13 Skye Nieto, RN is Primary Nurse. vc1 00:18 Chest Single View XRAY In Process Unspecified. EDMS 00:38 Sander Barber is Hospitalizing Provider. kb 00:41 Troponin High Sensitivity Sent. oe 00:42 COVID-19 SARS RT PCR Sent. oe 00:42 BNP Sent. oe 01:45 No provider procedures requiring assistance completed. Patient admitted, IV remains in kd3 place. Administered Medications: 02/04 23:15 Drug: Famotidine IVP 20 mg Route: IVP; Site: right antecubital; vc1 02/05 01:45 Follow up: Response: No adverse reaction kd3 02/04 23:16 Drug: Ondansetron IVP 4 mg Route: IVP; Site: right antecubital; vc1 02/05 01:46 Follow up: Response: No adverse reaction; Nausea is decreased kd3 02/04 23:18 Drug: NS 0.9% IV 1000 ml Route: IV; Rate: 1 bolus; Site: right antecubital; vc1 02/05 01:45 Follow up: Response: No adverse reaction; IV Status: Completed infusion kd3 Medication: 02/04 23:11 VIS not applicable for this client. vc1 Outcome: 02/05 00:38 Decision to Hospitalize by Provider. kb 01:45 Admitted to Med/surg kd3 01:45 Condition: stable 01:45 Discharge instructions given to patient, Instructed on follow up and referral plans. the need for admit, Demonstrated understanding of instructions, follow-up care. 01:46 Patient left the ED. kd3 Signatures: Dispatcher [employer] Cindi Wilkins, DRAPERY SEWER HAND-C DRAPERY SEWER HAND-Ckb Melissa Bower Orlando oe Garcia, Victoria, RN RN vg1 Lorenza Soria RN RN kd3 Skye Nieto, RN RN vc1
[2023-02-05 00:43] LABS: Troponin High Sensitivity 4.1 pg/mL (<58.9)
--- NOTE | 2023-02-05 01:28 | P.HP ---
Certification for Inpatient Patient admitted to: Observation With expected LOS: <2 Midnights Patient will require the following post-hospital care: None Practitioner: I am a practitioner with admitting privileges, knowledge of patient current condition, hospital course, and medical plan of care. Services: Services provided to patient in accordance with Admission requirements found in Title 42 Section 412.3 of the Code of Federal Regulations <Valery Rodriguez - Last Filed: 02/05/23 01:39> Patient History Date of Service: 02/05/23 Reason for admission: Nausea, Vomiting, Hypoxia History of Present Illness: Ms. Saucedo is a 72 year old female with past medical history of non-insulin dependent type 2 diabetes, hypertension, hyperlipidemia, GERD, thyroid cancer s/p thyroidectomy, chronic sinus tachycardia, lupus, RA, and recent diagnosis of Sjogren's syndrome on leflumonide who presented to the emergency department with complaints of nausea and vomiting that began this morning. She has been vomiting all day and has not been able to hold anything down, including her medications. No significant lab abnormalities in blood work. She was noted to have 4+ glucose and 4+ ketones in her urine. Serum glucose was 100. CT abdomen pelvis showed "Significant distention of the stomach with fluid and air which may be secondary to recent ingestion. Gastroparesis is within the differential." Later during the stay, she desaturated to 87% on room air and had to be placed on 1.5L NC. Chest xray was then obtained and showed "Marked gaseous distention of the stomach and low lung volumes bilaterally. Minimal bibasilar subsegmental atelectasis with otherwise no acute cardiopulmonary abnormality." Nausea was improved with zofran and pepcid, she did not have any episodes of emesis in the ED. Given her unexplained hypoxia, ED provider wishes to admit patient for observation. Home medications list reviewed: Yes - Past Medical/Surgical History Diabetic: Yes -: Hypertension -: Chron's disease -: Irregular heart rhythm, periodically -: Thyroid cancer -: GERD -: Anemia -: Dyslipidemia -: Sjogrens Syndrome -: Lupus -: Rheumatoid Arthritis -: csection -: thyroidectomy -: cholecystectomy -: cardiac cath with stents Psychosocial/ Personal History: Patient lives at home with her . - Family History Father -: Hypertension Mother -: Hypertension, Cancer Brother -: Hypertension - Social History Smoking Status: Former smoker Alcohol use: No CD- Drugs: No Caffeine use: Yes Place of Residence: Home <Valery Rodriguez - Last Filed: 02/05/23 01:39> Date of Service: 02/05/23 <KvngCristofer - Last Filed: 02/05/23 09:38> Allergies No Known Allergies Allergy (Verified 11/03/19 16:56) Home Medications: Clopidogrel Bisulfate [Plavix*] 75 mg PO DAILY #30 tablet 11/06/19 Levothyroxine [Synthroid*] 0.112 mg PO DAILYAC tab 11/06/19 Metoprolol Succinate [Toprol Xl*] 100 mg PO BID 6AM 6PM tab 11/06/19 Empagliflozin [Jardiance] 1 tab PO DAILY 10/25/22 Leflunomide 1 tab PO DAILY 10/25/22 Omeprazole 1 tab PO DAILY 10/25/22 Rosuvastatin [Crestor] 10 mg PO DAILY 10/25/22 Zinc Gluconate [Zinc] 1 tab PO DAILY 10/25/22 Review of Systems General: Weakness Respiratory: Cough Gastrointestinal: Nausea, Vomiting <Valery Rodriguez - Last Filed: 02/05/23 01:39> Physical Examination - Vital Signs Temperature: 97.7 F Blood Pressure: 120/63 Pulse: 109 Respirations: 17 Pulse Ox (%): 97 (1.5L NC) - Physical Exam General: Alert, In no apparent distress HEENT: Atraumatic, EOMI, Sclerae nonicteric Neck: Supple, 2+ carotid pulse no bruit Respiratory: Clear to auscultation bilaterally, Normal air movement Cardiovascular: Regular rate/rhythm, Normal S1 S2 Gastrointestinal: Hypoactive, Soft and benign, Non-distended, No tenderness, No rebound, No guarding Musculoskeletal: No tenderness Integumentary: No rashes Neurological: Normal speech, Normal affect - Studies Laboratory Data (last 24 hrs) 02/04/23 22:50: Sodium 142, Potassium 3.5, BUN 17, Creatinine 0.30 L, Glucose 100, Total Bilirubin 0.5, AST 28, ALT 26, Alkaline Phosphatase 80, Lipase 55 02/04/23 22:50: WBC 5.80, Hgb 12.5, Hct 39.5, Plt Count 206 <MichaelValery - Last Filed: 02/05/23 01:39> - Studies Laboratory Data (last 24 hrs) 02/04/23 22:50: Sodium 142, Potassium 3.5, BUN 17, Creatinine 0.30 L, Glucose 100, Total Bilirubin 0.5, AST 28, ALT 26, Alkaline Phosphatase 80, Lipase 55 02/04/23 22:50: WBC 5.80, Hgb 12.5, Hct 39.5, Plt Count 206 <Cristfoer Calderon - Last Filed: 02/05/23 09:38> Assessment and Plan - Problems (Diagnosis) (1) Acute respiratory failure with hypoxia Current Visit: Yes Status: Acute (2) Sjogren syndrome with gastrointestinal involvement Current Visit: Yes Status: Chronic (3) Rheumatoid arthritis Current Visit: Yes Status: Chronic Qualifiers: Rheumatoid arthritis location: unspecified site Rheumatoid factor presence: unspecified presence Qualified Code(s): M06.9 - Rheumatoid arthritis, unspecified (4) Lupus (systemic lupus erythematosus) Current Visit: Yes Status: Chronic Qualifiers: Systemic lupus erythematosus type: unspecified Systemic lupus erythematosus organ involvement: unspecified Qualified Code(s): M32.9 - Systemic lupus erythematosus, unspecified (5) Type 2 diabetes mellitus Current Visit: Yes Status: Chronic Qualifiers: Diabetes mellitus long-term insulin use: without long-term use Diabetes mellitus complication status: without complication Qualified Code(s): E11.9 - Type 2 diabetes mellitus without complications (6) Hyperlipidemia Current Visit: Yes Status: Chronic Qualifiers: Hyperlipidemia type: mixed hyperlipidemia Qualified Code(s): E78.2 - Mixed hyperlipidemia (7) Hypertension Current Visit: Yes Status: Chronic Qualifiers: Hypertension type: primary hypertension Qualified Code(s): I10 - Essential (primary) hypertension (8) GERD (gastroesophageal reflux disease) Current Visit: Yes Status: Chronic Qualifiers: Esophagitis presence: without esophagitis Qualified Code(s): K21.9 - Gastro-esophageal reflux disease without esophagitis (9) CAD (coronary artery disease) Current Visit: Yes Status: Chronic Qualifiers: Coronary Disease-Associated Artery/Lesion type: [place] artery [place] vs. transplanted heart: [place] heart Associated angina: without angina Qualified Code(s): I25.10 - Atherosclerotic heart disease of [place] coronary artery without angina pectoris (10) Sinus tachycardia Current Visit: Yes Status: Chronic - Plan Acute respiratory failure with hypoxia -Cause of hypoxia is unclear. Patient is not exhibiting any signs of respiratory distress. covid negative. -Chest xray showed "Marked gaseous distention of the stomach and low lung volumes bilaterally. Minimal bibasilar subsegmental atelectasis with otherwise no acute cardiopulmonary abnormality." -Currently on 1.5L NC. Titrate and wean as tolerated. -She has a distant history of tobacco use and reports requiring home O2 awhile back. -Patient also reports she has a weak dry cough, but was told that was a symptom of her Sjogrens. Nausea and vomiting -She states symptoms began this morning, thought she might have eaten something bad. does not have same symptoms -CT abdomen pelvis with IV contrast showed "Significant distention of the stomach with fluid and air which may be secondary to recent ingestion. Gastroparesis is within the differential." -Simethicone and reglan ordered to try and relieve symptoms -She reports chronic constipation secondary to her rheumatologic disorders -Received 1L IV fluid in the emergency department Chronic sinus tachycardia -Continue metoprolol 100 mg BID -Monitor on telemetry Type 2 Diabetes, Non-Insulin Dependent -Blood sugar is 100 however she had 4+ glucose and 4+ ketones in urine -She could be developing gastroparaesis secondary to diabetes -ACHS glucose monitoring. Mild sliding scale insulin if needed -Continue home jardiance Coronary Artery Disease -No chest pain -Continue plavix & statin RA, SLE, & Sjogrens -Continue leflunomide Hypothyroidism s/p thyroidectomy -Continue levothyroxine Discharge Plan: Home Plan to discharge in: 24 Hours - Advance Directives Does patient have a Living Will: Yes Does patient have a Durable POA for Healthcare: Yes - Code Status/Comfort Care Code Status Assessed: Yes Code Status: Full Code Physician Review: Patient Assessed, Agree with Above Assessment and Plan Critical Care: No Time Spent Managing Pts Care (In Minutes): 50 <Valery Rodriguez - Last Filed: 02/05/23 01:39> Physician Review: Patient Assessed, Agree with Above Assessment and Plan Physician Review Additional Text: This morning on rounds, her nausea/vomiting was slightly improved. CT chest revealed, "marked gaseous distention of the stomach with bilateral hemidiaphragm elevation, bibasilar compressive subsegmental atelectasis, and low lung volumes. Recommend gastric decompression." Will place NPO and order NG tube. If symptoms fail to improve, consider gastric emptying study. Will continue to monitor closely. Cristofer Calderon M.D. <Cristofer Calderon - Last Filed: 02/05/23 09:38>
[2023-02-05] MEDS ORDERED: METOPROLOL TAR 50 MG TAB PO ONE (02:00)
[2023-02-05] MEDS ORDERED: ACETAMINOPHEN 500 MG TAB PO PRN (02:00)
[2023-02-05] MEDS ORDERED: SIMETHICONE 80 MG TAB PO ONE (02:00)
[2023-02-05] MEDS ORDERED: ALBUTEROL 2.5 MG/3 ML NEB SOL NEB PRN ×2 (02:00→14:00)
[2023-02-05] MEDS: NA CHLORIDE 0.9% 1,000 ML IV SCH ×2 (02:21→11:23)
[2023-02-05] MEDS: METOCLOPRAMIDE 10 MG/2mL INJ IV SCH (02:22)
[2023-02-05 02:38] VITALS: BMI 33.4
[2023-02-05 06:34] LABS: Absolute Lymphocytes (CBC) 0.6 K/uL (0.7-4.9); Hematocrit 35.9 % (36.0-45.0); Lymphocytes % 12.5 % (15.3-44.8); MCV 84.4 fL (80-100); MPV 7.9 fL (7.6-11.3); RBC Red Blood Cell Count 4.26 M/uL (3.86-4.86)
[2023-02-05 06:52] LABS: Magnesium 1.5 mg/dL (1.6-2.4); Phosphorus 2.8 mg/dL (2.5-4.9); Potassium 3.3 mEq/L (3.5-5.1)
[2023-02-05 08:12] LABS: Urine Bacteria <20 /HPF (<20); Urine Bilirubin NEGATIVE (Negative); Urine Blood Negative (Negative); Urine Clarity Clear (Clear); Urine Color Yellow (Yellow); Urine Glucose 4+ (Over) (Negative); Urine Mucus Slight /HPF (None Seen); Urine Protein 1+ (Negative); Urine RBC <5 /HPF (None Seen); Urine Urobilinogen Normal (Normal); Urine pH 5.5 (5.0-7.0)
[2023-02-05 08:32] LABS: Specific Gravity > 1.030 (1.005-1.030)
[2023-02-05] MEDS ORDERED: Magnesium Sulfate 2gm IVPB 2 G/50 ML BAG IV ONE (09:00)
[2023-02-05] MEDS ORDERED: POTASSIUM CL SA 10 MEQ TAB PO ONE (09:00)
[2023-02-05] MEDS: ONDANSETRON 4 MG/2 ML VIAL IV PRN ×2 (09:22→15:09)
--- NOTE | 2023-02-05 10:25 | RAD REPORT ---
EXAM DESCRIPTION: RAD - Abdomen 1 View (KUB) - 02/05/2023 10:12 am CLINICAL HISTORY: Placement of NGT/OGT. Post Insertion. Pain COMPARISON: No comparisons FINDINGS: Enteric tube tip is in the stomach.
--- NOTE | 2023-02-05 11:10 | RAD REPORT ---
EXAM DESCRIPTION: CT Chest Without Intravenous Contrast CLINICAL HISTORY: The patient is 72 years old and is Female; hypoxia [facility] MAIN TECHNIQUE: Axial computed tomography images of the chest without intravenous contrast. Sagittal an d coronal reformatted images were created and reviewed. This CT exam was performed using one or mor e of the following dose reduction techniques: automated exposure control, adjustment of the mA and/ or kV according to patient size, and/or use of iterative reconstruction technique. COMPARISON: Same-day chest radiograph, 01/03/2023 CT abdomen pelvis with contrast FINDINGS: LUNGS: Marked gaseous distention of the stomach with bilateral hemidiaphragm elevation, bibasilar compressive subsegmental atelectasis, and low lung volumes. No other focal consolidation. PLEURAL SPACE: Unremarkable. No pneumothorax or pleural effusion. HEART: No cardiomegaly, no significant pericardial effusion. BONES/JOINTS: Redemonstrated compression fracture of the L1 vertebra, unchanged from reference exam. No acute fracture. No dislocation. SOFT TISSUES: Unremarkable. VASCULATURE: Dense multivessel coronary artery calcifications with suspected superimposed coronary artery stents. Mild thoracic aortic calcified atherosclerosis. No thoracic aortic aneurysm or intramural hematoma. LYMPH NODES: Unremarkable. No enlarged lymph nodes. GALLBLADDER AND BILE DUCTS: Cholecystectomy. KIDNEYS AND URETERS: Excreted intravenous contrast demonstrated in the partially visualized renal c ollecting systems. IMPRESSION: 1. Marked gaseous distention of the stomach with bilateral hemidiaphragm elevation, bi basilar compressive subsegmental atelectasis, and low lung volumes. Recommend gastric decompression. 2. Otherwise, allowing for lack of intravenous contrast, no acute cardiopulmonary abnormality. Electronically signed by: Alexandru Lala MD 02/05/2023 6:32 AM CDT Due to temporary technical issues with the PACS/Fluency reporting system, reports are being signed by the in house radiologist without review as a courtesy to ensure prompt reporting. The interpreting r adiologist is fully responsible for the content of the report.
--- NOTE | 2023-02-05 11:43 | RAD REPORT ---
EXAM DESCRIPTION: CT Abdomen and Pelvis With Intravenous Contrast CLINICAL HISTORY: The patient is 72 years old and is Female; NAUSEA / VOMITING TECHNIQUE: Axial computed tomography images of the abdomen and pelvis with intravenous contrast. S agittal and coronal reformatted images were created and reviewed. This CT exam was performed using one or more of the following dose reduction techniques: automated exposure control, adjustment of t he mA and/or kV according to patient size, and/or use of iterative reconstruction technique. COMPARISON: CT Abdomen Pelvis dated January 03 2023 FINDINGS: LUNG BASES: Areas of atelectasis in the lung bases is noted. ABDOMEN: LIVER: Unremarkable. No mass. GALLBLADDER AND BILE DUCTS: Surgical clips are present in the right upper quadrant, consistent wi th previous cholecystectomy. PANCREAS: No ductal dilation. No mass. SPLEEN: Unremarkable. ADRENALS: Unremarkable. No mass. KIDNEYS AND URETERS: Redemonstration of multiple bilateral low attenuating renal lesions. The lar gest on the right measures 1.7 cm and the largest on the left measures 2 cm. There is no hydronephros is or hydroureter of either kidney. No obstructing renal or ureteral calculus is seen. STOMACH AND BOWEL: The stomach is significantly distended with fluid and air. The small bowel is normal in caliber. A moderate amount stool is present throughout colon. Scattered colonic diverticula are present without surrounding inflammation. There is no mucosal thickening or evidence of obstruct ion. PELVIS: APPENDIX: The appendix is normal in caliber without surrounding inflammation. BLADDER: The bladder is incompletely distended. REPRODUCTIVE: Calcified uterine fibroids are present. ABDOMEN and PELVIS: INTRAPERITONEAL SPACE: Unremarkable. No free air. No significant fluid collection. BONES/JOINTS: Degenerative changes spine is present. Irregularity of the inferior end plate of L1 is noted. There is no acute fracture. SOFT TISSUES: The soft tissues are normal. VASCULATURE: Atherosclerosis of the vasculature is present. The vessels are normal in caliber. No abdominal aortic aneurysm. LYMPH NODES: Unremarkable. No enlarged lymph nodes. IMPRESSION: 1. Colonic diverticulosis. 2. Significant distention of the stomach with fluid and air which may be secondary to recent ingest ion. Gastroparesis is within the differential. 3. Innumerable bilateral low attenuating renal lesions. Recommend nonemergent MRI or CT without and with intravenous contrast. Electronically signed by: Dina Zimmerman MD 02/05/2023 12:23 AM CDT Due to temporary technical issues with the PACS/Fluency reporting system, reports are being signed by the in house radiologist without review as a courtesy to ensure prompt reporting. The interpreting r adiologist is fully responsible for the content of the report.
--- NOTE | 2023-02-05 11:54 | RAD REPORT ---
EXAM DESCRIPTION: XR Chest, 1 View CLINICAL HISTORY: The patient is 72 years old and is Female; [facility] MAIN TECHNIQUE: Frontal view of the chest. COMPARISON: 02/05/2023 CT abdomen pelvis FINDINGS: LUNGS: Expiratory lung volumes with bibasilar hemidiaphragm elevation and prominent gase ous distention of the stomach elevating the left hemidiaphragm. Minimal bibasilar subsegmental atelectasis with otherwise no acute cardiopulmonary abnormalit y. PLEURAL SPACE: No appreciable pleural effusion. No pneumothorax. HEART: No cardiomegaly. MEDIASTINUM: Unremarkable. BONES/JOINTS: Unremarkable. IMPRESSION: Marked gaseous distention of the stomach and low lung volumes bilaterally. Minimal bib asilar subsegmental atelectasis with otherwise no acute cardiopulmonary abnormality. Electronically signed by: Alexandru Lala MD 02/05/2023 12:29 AM CDT Due to temporary technical issues with the PACS/Fluency reporting system, reports are being signed by the in house radiologist without review as a courtesy to ensure prompt reporting. The interpreting r adiologist is fully responsible for the content of the report.
--- NOTE | 2023-02-05 12:26 | EKG ---
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
[2023-02-05 16:38] LABS: Magnesium 1.9 mg/dL (1.6-2.4); Potassium 3.5 mEq/L (3.5-5.1)
[2023-02-05] MEDS: D5 0.9 NS 1,000 ML IV SCH (18:07)
[2023-02-05] MEDS ORDERED: KCL 20 MEQ/100 mL IVPB 20 MEQ/100 ML BAG IV SCH ×2 (19:00→20:00)
[2023-02-05 22:28] VITALS: O2SAT 94
[2023-02-06] MEDS: METOCLOPRAMIDE 10 MG/2mL INJ IV SCH (02:00)
[2023-02-06] MEDS: D5 0.9 NS 1,000 ML IV SCH (03:00)
[2023-02-06 06:35] LABS: Magnesium 1.7 mg/dL (1.6-2.4); Potassium 3.7 mEq/L (3.5-5.1)
[2023-02-06 09:01] VITALS: BP 124/61; TEMP 99.2
--- NOTE | 2023-02-06 11:55 | RAD REPORT ---
EXAM DESCRIPTION: RAD - Abdomen 1 View (KUB) - 02/06/2023 11:17 am CLINICAL HISTORY: NG tube placement COMPARISON: Abdomen 1 View (KUB) dated 02/05/2023 TECHNIQUE: Single AP view of the abdomen. FINDINGS: Enteric tube tip projects along the body of the stomach. Decreased gastric distention. Mil d small-bowel distention is appreciated. No evidence of free air or pneumatosis. No suspicious calcif ications. Right upper quadrant surgical clips likely related to prior cholecystectomy. No significant bony abnormality. IMPRESSION: Enteric tube tip projects along the body of the stomach. Decreased gastric distension.
--- NOTE | 2023-02-06 12:46 | P.DS ---
Admission Date: 02/06/23 Discharge Date: 02/06/23 Disposition: TRANSFER TO [facility] Discharge Condition: GOOD Reason for Admission: Nausea, Vomiting, Hypoxia Consultations: 1. General Surgery Hospital Course: DIAGNOSES: # Significant Gastric Distention - suspect due to Gastroparesis # Acute Hypoxic Respiratory Failure due to Atelectasis and Restricted Lung Expansion from Gastric Distention - resolved # Coronary Artery Disease s/p PCI # Sjogren's Syndrome # Systemic Lupus Erythematosis # Rheumatoid Arthritis # Crohn's Disease # Hypertension # Dyslipidemia # Thyroid Cancer s/p Thyroidectomy # Gastroesophageal Reflux Disease # Chronic L1 Compression Fracture # Multiple Renal Lesions HOSPITAL COURSE: Ms. Virginia Saucedo is a 72-year-old female with a past medical history significant for coronary artery disease s/p PCI, thyroid cancer s/p thyroidectomy, Sjogren's syndrome, rheumatoid arthritis, systemic lupus erythematosus, type 2 diabetes mellitus, hypertension, and hyperlipidemia who was admitted to the [facility] on 02/05/2023 for intractable abdominal pain and nausea/vomiting. She was admitted to the Medicine service. Upon further evaluation, her CT abdomen/pelvis revealed, "1. Colonic diverticulosis. 2. Significant distention of the stomach with fluid and air which may be secondary to recent ingestion. Gastroparesis is within the differential. 3. Innumerable bilateral low attenuating renal lesions." Her chest x-ray revealed, "marked gaseous distention of the stomach and low lung volumes bilaterally. Minimal bibasilar subsegmental atelectasis with otherwise no acute cardiopulmonary abnormality." Her CT chest revealed, "1. Marked gaseous distention of the stomach with bilateral hemidiaphragm elevation, bibasilar compressive subsegmental atelectasis, and low lung volumes. Recommend gastric decompression. 2. Otherwise, allowing for lack of intravenous contrast, no acute cardiopulmonary abnormality." She was placed NPO and a nasogastric tube was placed. There was a significant amount of gastric output and she stated that she felt slightly better today. This morning, she requested transfer to [facility] as this is where her daughter works as a Respiratory Therapist. At her request, the transfer was initiated. Doc-to-doc was completed with Dr. Alejandro ([facility] Hospitalist), who has generously accepted her for transfer. She was counseled on the renal lesions and the possibility of them having malignant potential. She was advised to follow-up with her PCP for further evaluation. She verbalized understanding and agreed to make this appointment. On 02/06/2023, she was seen on rounds and deemed medically stable for transfer. She and her family members were given the opportunity to ask questions and reported no further questions. Furthermore, all questions were answered to the best of my ability. A copy of this discharge summary will be sent to the above providers to facilitate continuity of care. Today, I personally spent 35 minutes on her case, of which greater than 50% of the time was spent in patient education, counseling, and coordination of care as described above. Vital Signs/Physical Exam: Temp Pulse Resp BP Pulse Ox 99.2 F 112 H 16 124/61 94 02/06/23 08:00 02/06/23 08:00 02/06/23 08:00 02/06/23 08:00 02/06/23 08:00 General: Alert, In no apparent distress, Oriented x3 HEENT: Atraumatic, Mucous membr. moist/pink, Other (NG tube in place), Sclerae nonicteric Respiratory: Clear to auscultation bilaterally, Diminished Cardiovascular: No edema, Regular rate/rhythm, Normal S1 S2, No gallops, No rubs, No murmurs Gastrointestinal: Hypoactive, Non-distended, No rebound, No guarding, Tenderness (minimal, generalized) Musculoskeletal: No clubbing Integumentary: No rashes Neurological: Normal speech, Normal affect Laboratory Data at Discharge: WBC 5.20 thou/uL (4.3-10.9) 02/05/23 06:10 Hgb 11.2 g/dL (12.0-15.0) L D 02/05/23 06:10 Hct 35.9 % (36.0-45.0) L 02/05/23 06:10 Plt Count 191 thou/uL (152-406) 02/05/23 06:10 Sodium 142 mEq/L (136-145) 02/06/23 05:38 Potassium 3.7 mEq/L (3.5-5.1) 02/06/23 05:38 BUN 10 mg/dL (7-18) 02/06/23 05:38 Creatinine 0.34 mg/dL (0.55-1.02) L 02/06/23 05:38 Glucose 108 mg/dL (74-106) H 02/06/23 05:38 Phosphorus 2.8 mg/dL (2.5-4.9) 02/05/23 06:10 Magnesium 1.7 mg/dL (1.6-2.4) 02/06/23 05:38 Total Bilirubin 0.5 mg/dL (0.2-1.0) 02/04/23 22:50 AST 28 U/L (15-37) 02/04/23 22:50 ALT 26 U/L (13-56) 02/04/23 22:50 Alkaline Phosphatase 80 U/L (45-117) 02/04/23 22:50 Triglycerides 49 mg/dL (<150) 02/05/23 06:10 Cholesterol 126 mg/dL (<200) 02/05/23 06:10 HDL Cholesterol 56 mg/dL (40-60) 02/05/23 06:10 Cholesterol/HDL Ratio 2.25 02/05/23 06:10 Lipase 55 U/L (13-75) 02/04/23 22:50 Home Medications: Clopidogrel Bisulfate [Plavix*] 75 mg PO DAILY #30 tablet 11/06/19 Levothyroxine [Synthroid*] 0.112 mg PO DAILYAC tab 11/06/19 Metoprolol Succinate [Toprol Xl*] 100 mg PO BID 6AM 6PM tab 11/06/19 Empagliflozin [Jardiance] 1 tab PO DAILY 10/25/22 Leflunomide 1 tab PO DAILY 10/25/22 Omeprazole 1 tab PO DAILY 10/25/22 Rosuvastatin [Crestor*] 10 mg PO DAILY 10/25/22 Zinc Gluconate [Zinc] 1 tab PO DAILY 10/25/22 Physician Discharge Instructions: - Continue medical care at [facility] Diet: NPO Activity: Ad porfirio Followup: Cathryn Thornton NP [Primary Care Provider] - Time spent managing pt's care (in minutes): 35
== END 2023-02-06 13:45 | disposition short-term general hospital (02) | DRG 73 ==
LOC: ER 22:07 → ERHOLD 02-05 01:16 → 4TH 02-05 01:33 → OBSVTOIN 02-06 10:08
PROVIDERS: ADMIT Internal Medicine; ATTEND Internal Medicine
DX: E11.43 Type 2 diabetes mellitus with diabetic autonomic (poly)neuropathy (principal); J96.01 Acute respiratory failure with hypoxia; J98.11 Atelectasis; K50.90 Crohn's disease, unspecified, without complications; K57.30 Diverticulosis of large intestine without perforation or abscess without bleeding; K31.84 Gastroparesis; K31.89 Other diseases of stomach and duodenum; I10 Essential (primary) hypertension; M32.9 Systemic lupus erythematosus, unspecified; E78.2 Mixed hyperlipidemia; M35.08 Sjogren syndrome with gastrointestinal involvement; M06.9 Rheumatoid arthritis, unspecified; N28.9 Disorder of kidney and ureter, unspecified; K63.89 Other specified diseases of intestine; E03.9 Hypothyroidism, unspecified; I25.10 Atherosclerotic heart disease of native coronary artery without angina pectoris; K21.9 Gastro-esophageal reflux disease without esophagitis; M48.56XD Collapsed vertebra, not elsewhere classified, lumbar region, subsequent encounter for fracture with routine healing; Z95.5 Presence of coronary angioplasty implant and graft; Z79.02 Long term (current) use of antithrombotics/antiplatelets; Z90.49 Acquired absence of other specified parts of digestive tract; Z85.850 Personal history of malignant neoplasm of thyroid; Z87.891 Personal history of nicotine dependence; Z79.890 Hormone replacement therapy; Z79.899 Other long term (current) drug therapy; Z20.822 Contact with and (suspected) exposure to COVID-19
CPT/HCPCS: 36415; 71045; 71250; 74018; 74177; 80048; 80053; 80061; 81001; 82947; 83036; 83690; 83735; 83880; 84100; 84484; 85025; 93005; 94760; 96361; 96374; 96375; 99285; G0378; J2405; J2765; J3475; J3480; J7030; J7042; Q9967; U0003

== ENCOUNTER 2023-09-16 14:33 | Emergency (ER) | payer OTHER ==
--- OUTSIDE RECORDS SUMMARY | 2023-09-16 14:55 | XMS REPORT | Continuity of Care Document ---
:1950 Author Organization [facility] t Address [address] [place] [address] Care Team Providers Name Role Phone Asked, No Pcp Primary Care Physician Unavailable America MENDOZA Attending Clinician Unavailable IGNACIO THORNTON Attending Clinician Unavailable Ignacio Hunt Attending Clinician Doctor Unassigned, Peak Attending Clinician Unavailable Lab, Ang - Db Attending Clinician Unavailable [email or web address] Attending Clinician Unavailable EbDavid Molina Attending Clinician DAVID HUGHES Attending Clinician Unavailable Unknown, Attending Attending Clinician Unavailable Luiza Fuchs RN Attending Clinician Unavailable ANSELMO ALEJANDRO Attending Clinician Unavailable ANSELMO ALEJANDRO Attending Clinician Unavailable Jacobo Hernandes MD Attending Clinician Nurse, Calos Mcdaniels Attending Clinician Unavailable Vaccine, Calos Db Cbc Fam Attending Clinician Unavailable Madeleine Sandoval MA Attending Clinician Unavailable Guanako Martínez MD Attending Clinician SHIRA SAUCEDO Attending Clinician Unavailable Sonia Ruiz RN Attending Clinician Unavailable Pcp, Patient Does Not Have A Attending Clinician [phone] BRANDT ROBERTSON Attending Clinician Unavailable Lab, Adc Fam Pob I Attending Clinician Unavailable Brandt Westbrook Attending Clinician [email or web address] Admitting Clinician Unavailable IGNACIO THRONTON Admitting Clinician Unavailable ANSELMO ALEJANDRO Admitting Clinician Unavailable Payers Payer Name Policy Type Policy Number Effective Date Expiration Date S nida [facility] [id number] 2020 [employer] [place] 00:00:00 PPO [facility] HealthSelect 1 [id number] 2021 Common TRS/ERS MCR PPO 00:00:00 [facility] ALL SAVERS [id number] 2020 00:00:00 MEDICARE NOVITAS MB [id number] [facility] MEDICARE NOVITAS MB [id number] [facility] MEDICARE NOVITAS MB [id number] [facility] MEDICARE NOVITAS MB [id number] [facility] MEDICARE NOVITAS MB [id number] [facility] Blue Cross Blue C1 [id number] 2017 [facility] 00:00:00 [facility] HUMANA CHOICE [id number] 2018 00:00:00 [employer] PPO I [id number] 00:00:00 Problems Condition Condition Condition Status Onset Resolution Last Treating Co mments Source Name Details Category Date Date Treatment Clinician Date At risk At risk Disease Active 2022-10 Univers for falls for falls 11-10 ity of 00:00: [place] [address] Medical Branch Unspecifie Unspecifie Disease Active 2022-10 U lisa d d 11-10 ity of abnormalit abnormalit [place] ies of 00 Medical gait and gait and Branch mobility mobility Polyneurop Polyneurop Disease Active 2022-10 U lisa athy athy 11-10 ity of 00:00: [place] [address] Medical Branch Elevated Elevated Disease Active 2022-10 Unive rs vitamin vitamin 1-27 ity of B12 level B12 level 00:00: a s Medical Branch Acute left Acute left Disease Active U nivers ankle pain ankle pain 8-25 it y of 00:00: Medical Branch Left hip Left hip Disease Active Unive rs pain pain 6-06 ity of 00:00: Medical Branch Uterine Uterine Disease Active Univers leiomyoma, leiomyoma, 5-19 it y of unspecifie [place] location 00 In dical Branch LUQ pain LUQ pain Disease Active Unive rs 5-19 ity of 00:00: Medical Branch Hospital Hospital Disease Active Unive rs discharge discharge 5-05 ity of follow-up follow-up 00:00: a s Medical Branch Left ankle Left ankle Disease Active U nivers swelling swelling 5-05 ity of 00:00: Medical Branch Intractabl Intractabl Disease Active U nivers e nausea e nausea 4-25 ity of and and 00:00: [place] vomiting vomiting 00 Medica l Branch Hot Hot Disease Active 2021-10 Univers flashes flashes 1-07 ity of 00:00: Medical Branch Chronic Chronic Disease Active Univers fatigue fatigue 9-06 ity of 00:00: Medical Branch Allergy, Allergy, Disease Active Unive rs initial initial 9-06 ity of encounter encounter 00:00: s Medical Branch Cough Cough Disease Active Univers 9-06 ity of 00:00: Medical Branch Rash and Rash and Disease Active Unive rs other other 6-06 ity of nonspecifi nonspecifi [place] c skin c skin 00 Medical eruption eruption Branch Fall, Fall, Disease Active Univers initial initial 6-06 ity of encounter encounter 00:00: s Medical Branch Weakness Weakness Disease Active Unive rs of both of both 5-03 ity of lower lower 00:00: [place] extremitie extremitie 00 In dical s s Branch Age Age Disease Active Univers related related 5- ity of osteoporos osteoporos 00:[place] is 00 Medical Branch Unsteady Unsteady Disease Active Unive rs gait gait 5- ity of 00:00: [place] 00 Medical Branch Age Age Disease Active Univers related [...] 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 - it y of s without s without 00:00: [place] myelopathy myelopathy 00 Me dical Branch 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 - it y of 00:00: [place] 00 Medical [...] of rosis of rosis of 00:00: [place] 00 Medical coronary coronary Branch artery artery [...] Active U nivers dism due dism due 1-16 ity of to defect to defect 00:00[place] in thyroid in thyroid 00 Me dical hormone hormone Branch synthesis synthesis Nephrogeno Nephrogeno Disease Active U nivers us 1-16 ity of proteinuri proteinuri [place] a 00 Medical Branch Stage 1 Stage 1 Disease Active Univers chronic chronic 1-16 ity of kidney kidney 00:00: [place] disease disease 00 Medical Branch Vitamin D Vitamin D Disease Active Uni vers deficiency deficiency -16 it y of , , 00:00: [place] unspecifie unspecifie 00 Me dical d d Branch 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 Papillary Hypothyroi Hypothyroi Disease Active Overview : Univers dism dism 07-07 Formattin ity of 00:00: g of this [place] 00 note Medical might be Branch different from the original. ICD10 Diagnosis Term Bundle Tier And Labeler Utility Chronic CKD Problem Common kidney (chronic Spirit disease kidney - [facility] disease) [facility] [id number] Hypomagnes Problem Co mmon emia [facility] [id number] Low back Problem Comm on pain [facility] Obesity Obesity Problem Common [facility] Gastroesop GERD Problem Commo n hageal (gastroeso Spirit reflux phageal - CHI disease reflux St disease) [facility] Hyperlipid Hyperlipid Problem C ommon emia emia [facility] Hypertensi Hypertensi Problem C ommon on on [facility] [id number] 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 - CHI associated St 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[facility] 2 diabetes Medica mellitus Center [id number] Controlled Problem Co mmon type 2 Spirit diabetes - CHI mellitus St without [facility] complicati Medica l on, Center without long-term current use of insulin 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 Spirit disease disease - [facility] [id number] Stenosis Problem Comm on of [place] [facility] coronary - [facility] artery [facility] Microcytic Microcytic Problem C josep anemia anemia [facility] Acquired Acquired Problem Commo n hypothyroi hypothyroi Sp hanna dism dism [facility] [id number] Other Problem Common chronic [facility] pain [facility] [id number] Bilateral Problem Com mon lower [facility] extremity - [facility] edema [facility] [id number] Stented Problem Commo n coronary Spirit artery [facility] [id number] Crohn''s Problem Commo n disease Spirit with - CHI complicati St on, [facility] unspecifie Medica d Center gastrointe stinal tract location [id number] Sebaceous Problem Com mon cyst [facility] Post H/O heart Problem Common percutaneo artery [facility] us stent - [facility] translumin [facility] coronary [facility] angioplast Center y Atheroscle Atheroscle Problem C josep rotic rotic [facility] heart heart - [facility] disease of disease of [facility] [place] [facility] coronary coronary Medica l artery artery Center without without angina angina pectoris pectoris [id number] Ischemic Problem Comm on changes on Spirit head CT [facility] [id number] 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 [facility] disease of Medica l spine Center [id number] Cervicalgi Problem Com mon a [facility] - [facility] [id number] Need for Problem Comm on assistance Spirit due to - [facility] unsteady [facility] [id number] AVM Problem Common (arteriove Spirit nous - CHI malformati St on) of [facility], Medical acquired Center with hemorrhage [id number] Primary Problem Common insomnia Spirit - CHI [facility] [id number] Diabetic Problem Commo n polyneurop Spirit athy - CHI associated St with [facility] diabetes Medical mellitus Center due to underlying condition [id number] ACS (acute Problem Co mmon coronary Spirit syndrome) - CHI [facility] [id number] Memory Problem Common deficit Spirit - CHI [facility] [id number] Adult Problem Common general [facility] medical - [facility] exam [facility] Allergies, Adverse Reactions, Alerts Allergy Allergy Status Severity Reaction(s) Onset Inactive Treating Comm ents Source Name Type Date Date Clinician NO KNOWN Drug Active Univers ALLERGIE Class ity of S [place] [facility] Social History Social Habit Start Date Stop Date Quantity Comments Source History of tobacco Cigarette Smoker University of use [place] [facility] History SDOH University o f Alcohol Std Drinks [place] [facility] History SDOH University o f Alcohol Binge [place] [facility] al Branch History SDOH Social Unive rsity of Connections [facility] Med ical Together Branch History SDOH Social Unive rsity of Connections [facility] [place] [facility] Branch History SDOH Social Unive rsity of Connections [place] [facility] Membership Branch History SDOH Social Unive rsity of Connections [place] [facility] Meetings Branch Gender identity Universit y of [facility] Branch Sexual orientation [facility] Alcohol intake 2023-09-10 2023-09-10 Current University of 00:00:00 00:00:00 non-drinker of [facility] alcohol Branch (finding) History of Social 2023-06-08 2023-06-08 Univers ity of function 00:00:00 00:00:00 [facility] Branch Exposure to 2023-02-20 2023-03-02 Not sure University of SARS-CoV-2 (event) 00:00:00 08:36:00 [facility] Branch History SDOH 2023-02-07 2023-02-07 1 University o f Alcohol Frequency 00:00:00 00:00:00 [facility] edical Branch History SDOH Social 2023-02-07 2023-02-07 5 Unive rsity of Connections Phone 00:00:00 00:00:00 [facility] edical Branch History SDOH Social 2023-02-07 2023-02-07 3 Unive rsity of Connections Living 00:00:00 00:00:00 [facility] Branch History SDOH 2023-02-07 2023-02-07 7 University o f Physical Activity 00:00:00 00:00:00 [place] M edical DPW Branch History SDRI 2023-02-07 2023-02-07 6 University o f Physical Activity 00:00:00 00:00:00 [place] M edical MPS Branch History SDOH 2023-02-07 2023-02-07 5 University o f Financial 00:00:00 00:00:00 [place] Medical Branch History SDOH Food 2023-02-07 2023-02-07 1 Univers ity of Worry 00:00:00 00:00:00 [place] [facility] Branch History SDOH Food 2023-02-07 2023-02-07 1 Univers ity of Scarcity 00:00:00 00:00:00 [place] [facility] History SDOH 2023-02-07 2023-02-07 2 University o f Transport Med 00:00:00 00:00:00 [place] Medic al Branch History SDRI 2023-02-07 2023-02-07 2 [place] o f Transport Non-Med 00:00:00 00:00:00 [place] M edical Branch History SDRI 2023-02-07 2023-02-07 2 University o f Housing Unable to 00:00:00 00:00:00 [place] M edical Pay Branch History SDRI 2023-02-07 2023-02-07 1 [place] o f Housing Places 00:00:00 00:00:00 [place] Medi stanley Lived Branch History SDRI 2023-02-07 2023-02-07 2 [place] o f Housing Homeless 00:00:00 00:00:00 [facility] dical Last Year Branch Sex Ass[birth year] At [birth year] [facility] 00:00:[facility] 00:[facility]:00 [facility] Smoking Status Start Date Stop Date Source Tobacco smoking [facility] consumption unknown Ex-smoker 2023-02-06 00:00:00 2023-02-06 [place] o f [place] 00:00:00 Medical Branch Medications Ordered Filled Start Stop Current Ordering Indication Dosage Frequency Signature Comments Components Source Medication Medication Date Date Medication? Clinician (SIG) Name Name JARRAVINDERANCE 2022-10 Yes [id number] 10mg TAKE 1 U nivers 10 mg 2-01 TABLET BY ity of 00:00: MOUTH [place] 00 EVERY DAY Medical IN THE Branch MORNING vit C/vit E 2022-10- No 1{tbl} Take 1 U nivers ac/selenium 1-27 11-27 tablet by it y of /ginkgo 13:05: 00:00 mouth in [place] (MEMORY 55 :00 the Medical COMPLEX morning. Branch ORAL) vit C/vit E 2022-10- No 1{tbl} Take 1 U nivers ac/selenium 1-27 11-27 tablet by it y of /ginkgo 13:05: 00:00 mouth in [place] (MEMORY 55 :00 the Medical COMPLEX morning. Branch ORAL) furosemide 2022-10 Yes [id number] 10mg Take 0.5 Univers (LASIX) 20 1-27 tablets by ity of mg tablet 00:00: mouth in [facility] the Medical morning. Branch gabapentin 2022-10 Yes [id number] 900mg Take 3 Univers 300 mg 1-27 capsules ity of capsule 00:00: by mouth in the Medical morning Branch and 3 capsules at noon and 3 capsules in the evening. furosemide 2022-10 Yes [id number] 10mg Take 0.5 Univers (LASIX) 20 1-27 tablets by ity of mg tablet 00:00: mouth [facility] the Medical morning. Branch gabapentin 2022-10 Yes [id number] 900mg Take 3 Univers 300 mg 1-27 capsules ity of capsule 00:00: by mouth in the Medical morning Branch and 3 capsules at noon and 3 capsules in the evening. furosemide 2022-10 Yes [id number] 10mg Take 0.5 Univers (LASIX) 20 1-27 tablets by ity of mg tablet 00:00: [facility] the Medical morning. Branch gabapentin 2022-10 Yes [id number] 900mg Take 3 Univers 300 mg 1-27 capsules ity of capsule 00:00: by mouth 00 in the Medical morning Branch and 3 capsules at noon and 3 capsules in the evening. furosemide 2022-10 Yes [id number] 10mg Take 0.5 Univers (LASIX) 20 1-27 tablets by ity of mg tablet 00:00: mouth in [place] the Medical morning. Branch gabapentin 2022-10 Yes [id number] 900mg Take 3 Univers 300 mg 1-27 capsules ity of capsule 00:00: by mouth [place] 00 in the Medical morning Branch and 3 capsules at noon and 3 capsules in the evening. furosemide 2022- Yes [id number] 10mg Take 0.5 Univers (LASIX) 20 1-27 tablets by ity of mg tablet 00:00: mouth in [facility] s 00 the Medical morning. Branch gabapentin 2022-10 Yes [id number] 900mg Take 3 Univers 300 mg 1-27 capsules ity of capsule 00:00: by mouth 00 in the Medical morning Branch and 3 capsules at noon and 3 capsules in the evening. gabapentin 2022- Yes [id number] 600mg Take 1 Univers 600 mg 1-08 tablet by ity of tablet 00:00: mouth in [place] 00 the Medical morning Branch and 1 tablet at noon and 1 tablet in the evening. tiZANidine 2022-10 Yes [id number] 4mg Take 1 Univers 4 mg tablet 1-08 tablet by ity of 00:00: mouth [place] 00 every 6 Medical (six) Branch hours as needed for Pain (scale 4-6). gabapentin 2022-10 Yes [id number] 600mg Take 1 Univers 600 mg 1-08 tablet by ity of tablet 00:00: mouth in [place] the Medical morning Branch and 1 tablet at noon and 1 tablet in the evening. tiZANidine 2022- Yes [id number] 4mg Take 1 Univers 4 mg tablet 1-08 tablet by ity of 00:00: mouth [place] 00 every 6 Medical (six) Branch hours as needed for Pain (scale 4-6). gabapentin 2022- Yes [id number] 600mg Take 1 Univers 600 mg 1-08 tablet by ity of tablet 00:00: mouth in [place] the Medical morning Branch and 1 tablet at noon and 1 tablet in the evening. tiZANidine 2022- Yes [id number] 4mg Take 1 Univers 4 mg tablet 1-08 tablet by ity of 00:00: mouth [place] 00 every 6 Medical (six) Branch hours as needed for Pain (scale 4-6). gabapentin 2022- Yes [id number] 600mg Take 1 Univers 600 mg 1-08 tablet by ity of tablet 00:00: mouth in [place] [address] the Medical morning Branch and 1 tablet at noon and 1 tablet in the evening. tiZANidine 2022-1 Yes [id number] 4mg Take 1 Univers 4 mg tablet 1-08 tablet by ity of 00:00: mouth [place] 00 every 6 Medical (six) Branch hours as needed for Pain (scale 4-6). gabapentin 2022-1 Yes [id number] 600mg Take 1 Univers 600 mg 1-08 tablet by ity of tablet 00:00: mouth in [place] 00 the Medical morning Branch and 1 tablet at noon and 1 tablet in the evening. tiZANidine 2022-1 Yes [id number] 4mg Take 1 Univers 4 mg tablet 1-08 tablet by ity of 00:00: mouth [place] 00 every 6 Medical (six) Branch hours as needed for Pain (scale 4-6). gabapentin 2022-1 Yes [id number] 600mg Take 1 Univers 600 mg 1-08 tablet by ity of tablet 00:00: mouth in [place] 00 the Medical morning Branch and 1 tablet at noon and 1 tablet in the evening. tiZANidine 2022-1 Yes [id number] 4mg Take 1 Univers 4 mg tablet 1-08 tablet by ity of 00:00: mouth [place] 00 every 6 Medical (six) Branch hours as needed for Pain (scale 4-6). gabapentin 2022-1 Yes [id number] 600mg Take 1 Univers 600 mg 1-08 tablet by ity of tablet 00:00: mouth in [place] the Medical morning Branch and 1 tablet at noon and 1 tablet in the evening. tiZANidine 2022-1 Yes [id number] 4mg Take 1 Univers 4 mg tablet 1-08 tablet by ity of 00:00: mouth [place] 00 every 6 Medical (six) Branch hours as needed for Pain (scale 4-6). gabapentin 2022-1 Yes [id number] 300mg Take 1 Univers 300 mg 0-20 105 capsule by ity of capsule 00:00: mouth in [place] the Medical morning Branch and 1 capsule at noon and 1 capsule in the evening. gabapentin 2022-1 Yes [id number] 300mg Take 1 Univers 300 mg 0-20 105 capsule by ity of capsule 00:00: mouth in [place] [address] the Medical morning Branch and 1 capsule at noon and 1 capsule in the evening. gabapentin 2022-1 Yes [id number] 300mg Take 1 Univers 300 mg 0-20 105 capsule by ity of capsule 00:00: mouth in [place] 00 the Medical morning Branch and 1 capsule at noon and 1 capsule in the evening. gabapentin 2022-10 Yes [id number] 300mg Take 1 Univers 300 mg 0-20 105 capsule by ity of capsule 00:00: mouth in [place] 00 the Medical morning Branch and 1 capsule at noon and 1 capsule in the evening. gabapentin 2022-10 Yes [id number] 300mg Take 1 Univers 300 mg 0-20 105 capsule by ity of capsule 00:00: mouth in [place] 00 the Medical morning Branch and 1 capsule at noon and 1 capsule in the evening. gabapentin 2022-10 Yes [id number] 300mg Take 1 Univers 300 mg 0-20 105 capsule by ity of capsule 00:00: mouth in [place] 00 the Medical morning Branch and 1 capsule at noon and 1 capsule in the evening. gabapentin 2022-10 Yes [id number] 300mg Take 1 Univers 300 mg 0-20 105 capsule by ity of capsule 00:00: mouth in [place] 00 the Medical morning Branch and 1 capsule at noon and 1 capsule in the evening. gabapentin 2022-10- No [id number] 300mg Take 1 Univers 300 mg 0-20 11-08 105 capsule by ity of capsule 00:00: 00:00 mouth in [place] 00 :00 the Medical morning Branch and 1 capsule at noon and 1 capsule in the evening. gabapentin 2022-10- No [id number] 300mg Take 1 Univers 300 mg 0-20 11-08 105 capsule by ity of capsule 00:00: 00:00 mouth in [place] 00 :00 the Medical morning Branch and 1 capsule at noon and 1 capsule in the evening. levothyroxi 2022-10 Yes [id number] 112ug Take 1 Univers ne 112 mcg 0-17 tablet by ity of tablet 00:00: mouth [place] 00 every Medical morning. Branch levothyroxi 2022-10 Yes [id number] 112ug Take 1 Univers ne 112 mcg 0-17 tablet by ity of tablet 00:00: mouth [place] 00 every Medical morning. Branch levothyroxi 2022-10 Yes [id number] 112ug Take 1 Univers ne 112 mcg 0-17 tablet by ity of tablet 00:00: mouth [place] 00 every Medical morning. Branch levothyroxi 2022-10 Yes [id number] 112ug Take 1 Univers ne 112 mcg 0-17 tablet by ity of tablet 00:00: mouth [place] 00 every Medical morning. Branch levothyroxi 2022-10 Yes [id number] 112ug Take 1 Univers ne 112 mcg 0-17 tablet by ity of tablet 00:00: mouth [place] 00 every Medical morning. Branch levothyroxi 2022-10 Yes [id number] 112ug Take 1 Univers ne 112 mcg 0-17 tablet by ity of tablet 00:00: mouth [place] 00 every Medical morning. Branch levothyroxi 2022-10 Yes [id number] 112ug Take 1 Univers ne 112 mcg 0-17 tablet by ity of tablet 00:00: mouth [place] 00 every Medical morning. Branch levothyroxi 2022-10 Yes [id number] 112ug Take 1 Univers ne 112 mcg 0-17 tablet by ity of tablet 00:00: mouth [place] 00 every Medical morning. Branch levothyroxi 2022-10 Yes [id number] 112ug Take 1 Univers ne 112 mcg 0-17 tablet by ity of tablet 00:00: mouth [place] 00 every Medical morning. Branch levothyroxi 2022-10 Yes [id number] 112ug Take 1 Univers ne 112 mcg 0-17 tablet by ity of tablet 00:00: mouth [place] 00 every Medical morning. Branch levothyroxi 2022-10 Yes [id number] 112ug Take 1 Univers ne 112 mcg 0-17 tablet by ity of tablet 00:00: mouth [place] 00 every Medical morning. Branch levothyroxi 2022-10 Yes [id number] 112ug Take 1 Univers ne 112 mcg 0-17 tablet by ity of tablet 00:00: mouth [place] 00 every Medical morning. Branch levothyroxi 2022-10 Yes [id number] 112ug Take 1 Univers ne 112 mcg 0-17 tablet by ity of tablet 00:00: mouth [place] 00 every Medical morning. Branch levothyroxi 2022-10 Yes [id number] 112ug Take 1 Univers ne 112 mcg 0-17 tablet by ity of tablet 00:00: mouth [place] 00 every Medical morning. Branch levothyroxi 2022-10 Yes [id number] 112ug Take 1 Univers ne 112 mcg 0-17 tablet by ity of tablet 00:00: mouth [place] 00 every Medical morning. Branch gabapentin Yes [id number] 100mg Take 1 Univers 100 mg 9-22 capsule by ity of capsule 00:00: mouth at [place] 00 bedtime. [facility] Branch gabapentin 2022-0 Yes [id number] 100mg Take 1 Univers 100 mg 9-22 capsule by ity of capsule 00:00: mouth at [place] [address] bedtime. Medical Branch gabapentin 2022-0 Yes [id number] 100mg Take 1 Univers 100 mg 9-22 capsule by ity of capsule 00:00: mouth at [place] 00 bedtime. Medical Branch gabapentin 2022-0 Yes [id number] 100mg Take 1 Univers 100 mg 9-22 capsule by ity of capsule 00:00: mouth at [place] [address] bedtime. Medical Branch gabapentin 2022-0 Yes [id number] 100mg Take 1 Univers 100 mg 9-22 capsule by ity of capsule 00:00: mouth at [place] [address] bedtime. Medical Branch gabapentin 2022-0 Yes [id number] 100mg Take 1 Univers 100 mg 9-22 capsule by ity of capsule 00:00: mouth at [place] [address] bedtime. Medical Branch gabapentin 2022-0 2022- No [id number] 100mg Take 1 Univers 100 mg 9-22 10-20 capsule by ity of capsule 00:00: 00:00 mouth at [place] 00 :00 bedtime. Medical Branch gabapentin 2022-0 2022- No [id number] 100mg Take 1 Univers 100 mg 9-22 10-20 capsule by ity of capsule 00:00: 00:00 mouth at [place] 00 :00 bedtime. Medical Branch gabapentin 2022-0 2022- No [id number] 100mg Take 1 Univers 100 mg 9-22 10-20 capsule by ity of capsule 00:00: 00:00 mouth at [place] 00 :00 bedtime. Medical Branch gabapentin 2022-0 2022- No [id number] 100mg Take 1 Univers 100 mg 9-22 10-20 capsule by ity of capsule 00:00: 00:00 mouth at [place] 00 :00 bedtime. Medical Branch gabapentin 2022-0 2022- No [id number] 100mg Take 1 Univers 100 mg 9-22 09-22 capsule by ity of capsule 00:00: 00:00 mouth at [place] 00 :00 bedtime. Medical Branch omeprazole 2022-0 Yes [id number] 40mg TAKE 1 Univers 40 mg 9-13 CAPSULE BY ity of capsule 00:00: MOUTH [place] [address] EVERY Medical MORNING Branch ROSUVASTATI 2022-0 Yes [id number] TAKE 1 Univers N 40 mg 9-13 TABLET BY ity of tablet 00:00: MOUTH [place] 00 EVERY DAY Medical Branch omeprazole 2023-0 Yes [id number] 40mg TAKE 1 Univers 40 mg 9-13 CAPSULE BY ity of capsule 00:00: MOUTH [place] 00 EVERY Medical MORNING Branch ROSUVASTATI 3-0 Yes [id number] TAKE 1 [facility] N 40 mg 9-13 TABLET BY ity of tablet 00:00: MOUTH [place] 00 EVERY DAY Medical Branch omeprazole 2023-0 Yes [id number] 40mg TAKE 1 [facility] 40 mg 9-13 CAPSULE BY ity of capsule 00:00: MOUTH [place] 00 EVERY Medical MORNING Branch ROSUVASTATI 2022-0 Yes [id number] TAKE 1 [facility] N 40 mg 9-13 TABLET BY ity of tablet 00:00: MOUTH [place] 00 EVERY DAY Medical Branch omeprazole 3-0 Yes [id number] 40mg TAKE 1 [facility] 40 mg 9-13 CAPSULE BY ity of capsule 00:00: MOUTH [place] 00 EVERY Medical MORNING Branch ROSUVASTATI 2022-0 Yes [id number] TAKE 1 [facility] N 40 mg 9-13 TABLET BY ity of tablet 00:00: MOUTH [place] 00 EVERY DAY Medical Branch omeprazole 3-0 Yes [id number] 40mg TAKE 1 [facility] 40 mg 9-13 CAPSULE BY ity of capsule 00:00: MOUTH [place] 00 EVERY Medical MORNING Branch ROSUVASTATI 2022-0 Yes [id number] TAKE 1 [facility] N 40 mg 9-13 TABLET BY ity of tablet 00:00: MOUTH [place] 00 EVERY DAY Medical Branch omeprazole 2023-0 Yes [id number] 40mg TAKE 1 [facility] 40 mg 9-13 CAPSULE BY ity of capsule 00:00: MOUTH [place] 00 EVERY Medical MORNING Branch ROSUVASTATI 3-0 Yes [id number] TAKE 1 [facility] N 40 mg 9-13 TABLET BY ity of tablet 00:00: MOUTH [place] 00 EVERY DAY Medical Branch omeprazole 2023-0 Yes [id number] 40mg TAKE 1 [facility] 40 mg 9-13 CAPSULE BY ity of capsule 00:00: MOUTH [place] 00 EVERY Medical MORNING Branch ROSUVASTATI 3-0 Yes [id number] TAKE 1 [facility] N 40 mg 9-13 TABLET BY ity of tablet 00:00: MOUTH [place] 00 EVERY DAY Medical Branch omeprazole 2023-0 Yes [id number] 40mg TAKE 1 [facility] 40 mg 9-13 CAPSULE BY ity of capsule 00:00: MOUTH [place] 00 EVERY Medical MORNING Branch ROSUVASTATI 2023-0 Yes [id number] TAKE 1 [facility] N 40 mg 9-13 TABLET BY ity of tablet 00:00: MOUTH [place] 00 EVERY DAY Medical Branch omeprazole 2023-0 Yes [id number] 40mg TAKE 1 [facility] 40 mg 9-13 CAPSULE BY ity of capsule 00:00: MOUTH [place] 00 EVERY Medical MORNING Branch ROSUVASTATI 3-0 Yes [id number] TAKE 1 [facility] N 40 mg 9-13 TABLET BY ity of tablet 00:00: MOUTH [place] 00 EVERY DAY Medical Branch omeprazole 3-0 Yes [id number] 40mg TAKE 1 [facility] 40 mg 9-13 CAPSULE BY ity of capsule 00:00: MOUTH [place] 00 EVERY Medical MORNING Branch ROSUVASTATI 2022-0 Yes [id number] TAKE 1 [facility] N 40 mg 9-13 TABLET BY ity of tablet 00:00: MOUTH [place] 00 EVERY DAY Medical Branch omeprazole 3-0 Yes [id number] 40mg TAKE 1 [facility] 40 mg 9-13 CAPSULE BY ity of capsule 00:00: MOUTH [place] 00 EVERY Medical MORNING Branch ROSUVASTATI 3-0 Yes [id number] TAKE 1 [facility] N 40 mg 9-13 TABLET BY ity of tablet 00:00: MOUTH [place] 00 EVERY DAY Medical Branch omeprazole 2023-0 Yes [id number] 40mg TAKE 1 [facility] 40 mg 9-13 CAPSULE BY ity of capsule 00:00: MOUTH [place] 00 EVERY Medical MORNING Branch ROSUVASTATI 3-0 Yes [id number] TAKE 1 [facility] N 40 mg 9-13 TABLET BY ity of tablet 00:00: MOUTH [place] 00 EVERY DAY Medical Branch omeprazole 2023-0 Yes [id number] 40mg TAKE 1 [facility] 40 mg 9-13 CAPSULE BY ity of capsule 00:00: MOUTH [place] 00 EVERY Medical MORNING Branch ROSUVASTATI 3-0 Yes [id number] TAKE 1 [facility] N 40 mg 9-13 TABLET BY ity of tablet 00:00: MOUTH [place] 00 EVERY DAY Medical Branch omeprazole 2023-0 Yes [id number] 40mg TAKE 1 [facility] 40 mg 9-13 CAPSULE BY ity of capsule 00:00: MOUTH [place] 00 EVERY Medical MORNING Branch ROSUVASTATI 3-0 Yes [id number] TAKE 1 [facility] N 40 mg 9-13 TABLET BY ity of tablet 00:00: MOUTH [place] 00 EVERY DAY Medical Branch omeprazole 2023-0 Yes [id number] 40mg TAKE 1 [facility] 40 mg 9-13 CAPSULE BY ity of capsule 00:00: MOUTH [place] 00 EVERY Medical MORNING Branch ROSUVASTATI 2023-0 Yes [id number] TAKE 1 [facility] N 40 mg 9-13 TABLET BY ity of tablet 00:00: MOUTH [place] 00 EVERY DAY Medical Branch omeprazole 2023-0 Yes [id number] 40mg TAKE 1 [facility] 40 mg 9-13 CAPSULE BY ity of capsule 00:00: MOUTH [place] 00 EVERY Medical MORNING Branch ROSUVASTATI 3-0 Yes [id number] TAKE 1 [facility] N 40 mg 9-13 TABLET BY ity of tablet 00:00: MOUTH [place] 00 EVERY DAY Medical Branch omeprazole 2023-0 Yes [id number] 40mg TAKE 1 [facility] 40 mg 9-13 CAPSULE BY ity of capsule 00:00: MOUTH [place] 00 EVERY Medical MORNING Branch ROSUVASTATI 2023-0 Yes [id number] TAKE 1 [facility] N 40 mg 9-13 TABLET BY ity of tablet 00:00: MOUTH [place] 00 EVERY DAY Medical Branch omeprazole 2023-0 Yes [id number] 40mg TAKE 1 [facility] 40 mg 9-13 CAPSULE BY ity of capsule 00:00: MOUTH [place] 00 EVERY Medical MORNING Branch ROSUVASTATI 3-0 Yes [id number] TAKE 1 [facility] N 40 mg 9-13 TABLET BY ity of tablet 00:00: MOUTH [place] 00 EVERY DAY Medical Branch omeprazole 2023-0 Yes [id number] 40mg TAKE 1 [facility] 40 mg 9-13 CAPSULE BY ity of capsule 00:00: MOUTH [place] 00 EVERY Medical MORNING Branch ROSUVASTATI 3-0 Yes [id number] TAKE 1 [facility] N 40 mg 9-13 TABLET BY ity of tablet 00:00: MOUTH [place] 00 EVERY DAY Medical Branch omeprazole 2023-0 Yes [id number] 40mg TAKE 1 [facility] 40 mg 9-13 CAPSULE BY ity of capsule 00:00: MOUTH [place] 00 EVERY Medical MORNING Branch ROSUVASTATI 2023-0 Yes [id number] TAKE 1 [facility] N 40 mg 9-13 TABLET BY ity of tablet 00:00: MOUTH [place] 00 EVERY DAY Medical Branch omeprazole 2023-0 Yes [id number] 40mg TAKE 1 [facility] 40 mg 9-13 CAPSULE BY ity of capsule 00:00: MOUTH [place] 00 EVERY Medical MORNING [place] ROSUVASTATI Yes [id number] TAKE 1 [facility] N 40 mg 9-13 TABLET BY ity of tablet 00:00: MOUTH [place] 00 EVERY DAY Medical [place] JARDIANCE Yes [id number] 10mg TAKE 1 U nivers 10 mg 8-28 TABLET BY ity of 00:00: MOUTH [place] 00 EVERY DAY Medical IN THE [place] MORNING JARDIANCE Yes [id number] 10mg TAKE 1 U nivers 10 mg 8-28 TABLET BY ity of 00:00: MOUTH [place] 00 EVERY DAY Medical IN THE [place] MORNING JARDIANCE Yes [id number] 10mg TAKE 1 U nivers 10 mg 8-28 TABLET BY ity of 00:00: MOUTH [place] 00 EVERY DAY Medical IN THE [place] MORNING JARDIANCE Yes [id number] 10mg TAKE 1 U nivers 10 mg 8-28 TABLET BY ity of 00:00: MOUTH [place] 00 EVERY DAY Medical IN THE [place] MORNING JARDIANCE Yes [id number] 10mg TAKE 1 U nivers 10 mg 8-28 TABLET BY ity of 00:00: MOUTH [place] 00 EVERY DAY Medical IN THE [place] MORNING JARDIANCE Yes [id number] 10mg TAKE 1 U nivers 10 mg 8-28 TABLET BY ity of 00:00: MOUTH [place] 00 EVERY DAY Medical IN THE [facility] JARDIANCE Yes [id number] 10mg TAKE 1 U nivers 10 mg 8-28 TABLET BY ity of 00:00: MOUTH [place] 00 EVERY DAY Medical IN THE [place] MORNING JARDIANCE Yes [id number] 10mg TAKE 1 U nivers 10 mg 8-28 TABLET BY ity of 00:00: MOUTH [place] 00 EVERY DAY Medical IN THE [place] MORNING JARDIANCE Yes [id number] 10mg TAKE 1 U nivers 10 mg 8-28 TABLET BY ity of 00:00: MOUTH [place] 00 EVERY DAY Medical IN THE [place] MORNING JARDIANCE Yes [id number] 10mg TAKE 1 U nivers 10 mg 8-28 TABLET BY ity of 00:00: MOUTH [place] 00 EVERY DAY Medical IN THE [place] MORNING JARDIANCE Yes [id number] 10mg TAKE 1 U nivers 10 mg 8-28 TABLET BY ity of 00:00: MOUTH [place] 00 EVERY DAY Medical IN THE [place] MORNING JARDIANCE Yes [id number] 10mg TAKE 1 U nivers 10 mg 8-28 TABLET BY ity of 00:00: MOUTH [place] 00 EVERY DAY Medical IN THE [place] MORNING JARDIANCE Yes [id number] 10mg TAKE 1 U nivers 10 mg 8-28 TABLET BY ity of 00:00: MOUTH [place] 00 EVERY DAY Medical IN THE [place] MORNING JARDIANCE Yes [id number] 10mg TAKE 1 U nivers 10 mg 8-28 TABLET BY ity of 00:00: MOUTH [place] 00 EVERY DAY Medical IN THE [place] MORNING JARDIANCE Yes [id number] 10mg TAKE 1 U nivers 10 mg 8-28 TABLET BY ity of 00:00: MOUTH [place] 00 EVERY DAY Medical IN THE [facility] JARDIANCE Yes [id number] 10mg TAKE 1 U nivers 10 mg 8-28 TABLET BY ity of 00:00: MOUTH [place] 00 EVERY DAY Medical IN THE [facility] JARDIANCE Yes [id number] 10mg TAKE 1 U nivers 10 mg 8-28 TABLET BY ity of 00:00: MOUTH [place] 00 EVERY DAY Medical IN THE [facility] JARDIANCE Yes [id number] 10mg TAKE 1 U nivers 10 mg 8-28 TABLET BY ity of 00:00: MOUTH [place] 00 EVERY DAY Medical IN THE [facility] JARDIANCE Yes [id number] 10mg TAKE 1 U nivers 10 mg 8-28 TABLET BY ity of 00:00: MOUTH [place] 00 EVERY DAY Medical IN THE [place] MORNING JARDIANCE Yes [id number] 10mg TAKE 1 U nivers 10 mg 8-28 TABLET BY ity of 00:00: MOUTH [place] 00 EVERY DAY Medical IN THE [place] MORNING JARDIANCE Yes [id number] 10mg TAKE 1 U nivers 10 mg 8-28 TABLET BY ity of 00:00: MOUTH [place] 00 EVERY DAY Medical IN THE [facility] JARDIANCE Yes [id number] 10mg TAKE 1 U nivers 10 mg 8-28 TABLET BY ity of 00:00: MOUTH [place] 00 EVERY DAY Medical IN THE [facility] JARDIANCE Yes [id number] 10mg TAKE 1 U nivers 10 mg 8-28 TABLET BY ity of 00:00: MOUTH [place] 00 EVERY DAY Medical IN THE [place] MORNING JARDIANCE 2022- No [id number] 10mg TAKE 1 [facility] 10 mg 8-28 12- TABLET BY ity of 00:00: 00:00 MOUTH [place] 00 :00 EVERY DAY Medical IN THE [place] MORNING methylPREDN 2022- No [id number] Take by [facility] 06-08 mouth ity of (MEDROL, 00:00: 04:59 [place]-INSTRU [place],) 4 mg 00 :00 CTIONS for Med ical tablets 5 days. Branch follow package directions methylPREDN 2022- No [id number] Take by [facility] 06-08 mouth ity of (MEDROL, 00:00: 04:59 [place],) 4 mg 00 :00 CTIONS for Med ical tablets 5 days. Branch follow package directions methylPREDN 2022- No [id number] Take by [facility] 06-08 mouth ity of (MEDROL, 00:00: 04:59 [place]STRU [place],) 4 mg 00 :00 CTIONS for Med ical tablets 5 days. Branch follow package directions methylPREDN 2022- No [id number] Take by [facility] 06-08 mouth ity of (MEDROL, 00:00: 04:59 [place]INSTRU [place],) 4 mg 00 :00 CTIONS for Med ical tablets 5 days. Branch follow package directions methylPREDN 2022- No [id number] Take by [facility] 06-08 mouth ity of (MEDROL, 00:00: 04:59 [place]-INSTRU [place],) 4 mg 00 :00 CTIONS for Med ical tablets 5 days. Branch follow package directions methylPREDN 2022- No [id number] Take by [facility] 06-08 mouth ity of (MEDROL, 00:00: 04:59 [place]-INSTRU [place],) 4 mg 00 :00 CTIONS for Med ical tablets 5 days. Branch follow package directions empaglifloz 2023-0 Yes [id number] 10mg Take 1 [facility] in 6-08 tablet by ity of (JARDIANCE) 00:00: mouth in [place] 10 mg 00 the Medical morning. Branch empaglifloz 2023-0 Yes [id number] 10mg Take 1 [facility] in 6-08 tablet by ity of (JARDIANCE) 00:00: mouth in [place] 10 mg 00 the Medical morning. Branch empaglifloz 2023-0 Yes [id number] 10mg Take 1 [facility] in 6-08 tablet by ity of (JARDIANCE) 00:00: mouth in [place] 10 mg 00 the Medical morning. Branch empaglifloz 2023-0 Yes [id number] 10mg Take 1 [facility] in 6-08 tablet by ity of (JARDIANCE) 00:00: mouth in [place] 10 mg 00 the Medical morning. Branch empaglifloz 2023-0 Yes [id number] 10mg Take 1 [facility] in 6-08 tablet by ity of (JARDIANCE) 00:00: mouth in [place] 10 mg 00 the Medical morning. Branch empaglifloz 2023-0 Yes [id number] 10mg Take 1 [facility] in 6-08 tablet by ity of (JARDIANCE) 00:00: mouth in [place] 10 mg 00 the Medical morning. Branch empaglifloz 2023-0 Yes [id number] 10mg Take 1 [facility] in 6-08 tablet by ity of (JARDIANCE) 00:00: mouth in [place] 10 mg 00 the Medical morning. Branch empaglifloz 2023-0 Yes [id number] 10mg Take 1 [facility] in 6-08 tablet by ity of (JARDIANCE) 00:00: mouth in [place] 10 mg 00 the Medical morning. Branch empaglifloz 2023-0 Yes [id number] 10mg Take 1 [facility] in 6-08 tablet by ity of (JARDIANCE) 00:00: mouth in [place] 10 mg 00 the Medical morning. Branch empaglifloz 2023-0 2023- No [id number] 10mg Take 1 [facility] in 6-08 08-28 tablet by ity of (JARDIANCE) 00:00: 00:00 mouth in [place] 10 mg 00 :00 the Medical morning. Branch Cholecalcif 2023-0 Yes 2000U Take 1 [facility] vers [place], 6-05 capsule by ity of Vitamin D3, 16:31: mouth in [place] 50 mcg 34 the Medical (2,000 morning. Branch unit) capsule leflunomide 3-0 Yes 20mg Take 1 Univ ers 20 mg 6-05 tablet by ity of tablet 16:31: mouth in [place] 34 the Medical morning. Branch ascorbic 2023-0 Yes 500mg Take 1 Univer s acid, 6-05 tablet by ity of vitamin C, 16:31: mouth in [place] 500 mg 34 the Medical tablet morning. Branch MAGNESIUM 2023-0 Yes Take by Unive rs OXIDE 400 6-05 mouth ity of mg 16:31: daily. [place] magnesium 34 Medical Tab Branch VITAMIN A 2023-0 Yes 1000mg Take 1,000 [facility] ORAL 6-05 mg by ity of 16:31: mouth in [place] 34 the Medical morning. Branch vit C/vit E 2022-0 Yes 1{tbl} Take 1 Un [place] ac/selenium 6-05 tablet by ity of /ginkgo 16:31: mouth in [place] (MEMORY 34 the Medical COMPLEX morning. Branch ORAL) cyanocobala 3-0 Yes 1{tbl} Take 1 Un [place]ah min, 6-05 tablet by ity of vitamin 16:31: mouth in [place] B-12, 34 the Medical (VITAMIN morning. Branch B-12 ORAL) vitamin E 3-0 Yes 1{tbl} Take 1 Univ ers acetate 6-05 tablet by ity of (VITAMIN E 16:31: mouth in [place] ORAL) 34 the Medical morning. Branch vit 2023-0 Yes 1{capsu Take 1 [facility] C/E/zinc 6-05 le} capsule by ity o f ox/howard/lut 16:31: mouth in [place] /zeax 34 the Medical (ICAPS morning. Branch AREDS2 ORAL) omega-3/dha 2023-0 Yes 1{capsu Take 1 U nivers /epa/fish 6-05 le} capsule by ity of oil 16:31: mouth in [place] (OMEGA-3 34 the Medical FISH OIL morning. Branch ORAL) Cholecalcif 2023-0 Yes 2000U Take 1 [facility] vers [place], 6-05 capsule by ity of Vitamin D3, 16:31: mouth in [place] 50 mcg 34 the Medical (2,000 morning. Branch unit) capsule leflunomide 2022-0 Yes 20mg Take 1 Univ ers 20 mg 6-05 tablet by ity of tablet 16:31: mouth in [place] 34 the Medical morning. Branch ascorbic 2022-0 Yes 500mg Take 1 Univer s acid, 6-05 tablet by ity of vitamin C, 16:31: mouth in [place] 500 mg 34 the Medical tablet morning. Branch MAGNESIUM 2022-0 Yes Take by Unive rs OXIDE 400 6-05 mouth ity of mg 16:31: daily. [place] magnesium 34 Medical Tab Branch VITAMIN A 2022-0 Yes 1000mg Take 1,000 [facility] ORAL 6-05 mg by ity of 16:31: mouth in [place] 34 the Medical morning. Branch vit C/vit E 2022-0 Yes 1{tbl} Take 1 Un [place] ac/selenium 6-05 tablet by ity of /ginkgo 16:31: mouth in [place] (MEMORY 34 the Medical COMPLEX morning. Branch ORAL) cyanocobala 2022-0 Yes 1{tbl} Take 1 Un [place] min, 6-05 tablet by ity of vitamin 16:31: mouth in [place] B-12, 34 the Medical (VITAMIN morning. Branch B-12 ORAL) vitamin E 2022-0 Yes 1{tbl} Take 1 Univ ers acetate 6-05 tablet by ity of (VITAMIN E 16:31: mouth in [place] ORAL) 34 the Medical morning. Branch vit 2022-0 Yes 1{capsu Take 1 [facility] C/E/zinc 6-05 le} capsule by ity o f ox/howard/lut 16:31: mouth in [place] /zeax 34 the Medical (ICAPS morning. Branch AREDS2 ORAL) omega-3/dha 2022-0 Yes 1{capsu Take 1 U nivers /epa/fish 6-05 le} capsule by ity of oil 16:31: mouth in [place] (OMEGA-3 34 the Medical FISH OIL morning. Branch ORAL) Cholecalcif 2022-0 Yes 2000U Take 1 [facility] vers [place], 6-05 capsule by ity of Vitamin D3, 16:31: mouth in [place] 50 mcg 34 the Medical (2,000 morning. Branch unit) capsule leflunomide 3-0 Yes 20mg Take 1 Univ ers 20 mg 6-05 tablet by ity of tablet 16:31: mouth in [place] 34 the Medical morning. Branch ascorbic 2022-0 Yes 500mg Take 1 Univer s acid, 6-05 tablet by ity of vitamin C, 16:31: mouth in [place] 500 mg 34 the Medical tablet morning. Branch MAGNESIUM 2022-0 Yes Take by Unive rs OXIDE 400 6-05 mouth ity of mg 16:31: daily. [place] magnesium 34 Medical Tab Branch VITAMIN A 2022-0 Yes 1000mg Take 1,000 [facility] ORAL 6-05 mg by ity of 16:31: mouth in [place] 34 the Medical morning. Branch vit C/vit E 2022-0 Yes 1{tbl} Take 1 Un [facility] ac/selenium 6-05 tablet by ity of /ginkgo 16:31: mouth in [place] (MEMORY 34 the Medical COMPLEX morning. Branch ORAL) cyanocobala 2022-0 Yes 1{tbl} Take 1 Un sar[facility] min, 6-05 tablet by ity of vitamin 16:31: mouth in [place] B-12, 34 the Medical (VITAMIN morning. Branch B-12 ORAL) vitamin E 2022-0 Yes 1{tbl} Take 1 Univ ers acetate 6-05 tablet by ity of (VITAMIN E 16:31: mouth in [place] ORAL) 34 the Medical morning. Branch vit 2022-0 Yes 1{capsu Take 1 [facility] C/E/zinc 6-05 le} capsule by ity o f ox/howard/lut 16:31: mouth in [place] /zeax 34 the Medical (ICAPS morning. Branch AREDS2 ORAL) omega-3/dha 2022-0 Yes 1{capsu Take 1 U nivers /epa/fish 6-05 le} capsule by ity of oil 16:31: mouth in [place] (OMEGA-3 34 the Medical FISH OIL morning. Branch ORAL) Cholecalcif 3-0 Yes 2000U Take 1 [facility] vers [place], 6-05 capsule by ity of Vitamin D3, 16:31: mouth in [place] 50 mcg 34 the Medical (2,000 morning. Branch unit) capsule leflunomide 3-0 Yes 20mg Take 1 Univ ers 20 mg 6-05 tablet by ity of tablet 16:31: mouth in [place] 34 the Medical morning. Branch ascorbic 2022-0 Yes 500mg Take 1 Univer s acid, 6-05 tablet by ity of vitamin C, 16:31: mouth in [place] 500 mg 34 the Medical tablet morning. Branch MAGNESIUM 2022-0 Yes Take by Unive rs OXIDE 400 6-05 mouth ity of mg 16:31: daily. [place] magnesium 34 Medical Tab Branch VITAMIN A 2022-0 Yes 1000mg Take 1,000 [facility] ORAL 6-05 mg by ity of 16:31: mouth in [place] 34 the Medical morning. Branch vit C/vit E 2022-0 Yes 1{tbl} Take 1 Un [place] ac/selenium 6-05 tablet by ity of /ginkgo 16:31: mouth in [place] (MEMORY 34 the Medical COMPLEX morning. Branch ORAL) cyanocobala 2022-0 Yes 1{tbl} Take 1 Un [place] min, 6-05 tablet by ity of vitamin 16:31: mouth in [place] B-12, 34 the Medical (VITAMIN morning. Branch B-12 ORAL) vitamin E 2022-0 Yes 1{tbl} Take 1 Univ ers acetate 6-05 tablet by ity of (VITAMIN E 16:31: mouth in [place] ORAL) 34 the Medical morning. Branch vit 2022-0 Yes 1{capsu Take 1 [facility] C/E/zinc 6-05 le} capsule by ity o f ox/howard/lut 16:31: mouth in [place] /zeax 34 the Medical (ICAPS morning. Branch AREDS2 ORAL) omega-3/dha 2022-0 Yes 1{capsu Take 1 U nivers /epa/fish 6-05 le} capsule by ity of oil 16:31: mouth in [place] (OMEGA-3 34 the Medical FISH OIL morning. Branch ORAL) Cholecalcif 3-0 Yes 2000U Take 1 [facility] vers [place], 6-05 capsule by ity of Vitamin D3, 16:31: mouth in [place] 50 mcg 34 the Medical (2,000 morning. Branch unit) capsule leflunomide 2022-0 Yes 20mg Take 1 Univ ers 20 mg 6-05 tablet by ity of tablet 16:31: mouth in [place] 34 the Medical morning. Branch ascorbic 2022-0 Yes 500mg Take 1 Univer s acid, 6-05 tablet by ity of vitamin C, 16:31: mouth in [place] 500 mg 34 the Medical tablet morning. Branch MAGNESIUM 2022-0 Yes Take by Unive rs OXIDE 400 6-05 mouth ity of mg 16:31: daily. [place] magnesium 34 Medical Tab Branch VITAMIN A 2022-0 Yes 1000mg Take 1,000 [facility] ORAL 6-05 mg by ity of 16:31: mouth in [place] 34 the Medical morning. Branch vit C/vit E 2022-0 Yes 1{tbl} Take 1 Un [place] ac/selenium 6-05 tablet by ity of /ginkgo 16:31: mouth in [place] (MEMORY 34 the Medical COMPLEX morning. Branch ORAL) cyanocobala 2022-0 Yes 1{tbl} Take 1 Un [facility] min, 6-05 tablet by ity of vitamin 16:31: mouth in [place] B-12, 34 the Medical (VITAMIN morning. Branch B-12 ORAL) vitamin E 2022-0 Yes 1{tbl} Take 1 Univ ers acetate 6-05 tablet by ity of (VITAMIN E 16:31: mouth in [place] ORAL) 34 the Medical morning. Branch vit 2022-0 Yes 1{capsu Take 1 [facility] C/E/zinc 6-05 le} capsule by ity o f ox/howard/lut 16:31: mouth in [place] /zeax 34 the Medical (ICAPS morning. Branch AREDS2 ORAL) omega-3/dha 2022-0 Yes 1{capsu Take 1 U nivers /epa/fish 6-05 le} capsule by ity of oil 16:31: mouth in [place] (OMEGA-3 34 the Medical FISH OIL morning. Branch ORAL) Cholecalcif 2022-0 Yes 2000U Take 1 [facility] vers [place], 6-05 capsule by ity of Vitamin D3, 16:31: mouth in [place] 50 mcg 34 the Medical (2,000 morning. Branch unit) capsule leflunomide 2022-0 Yes 20mg Take 1 Univ ers 20 mg 6-05 tablet by ity of tablet 16:31: mouth in [place] 34 the Medical morning. Branch ascorbic 2022-0 Yes 500mg Take 1 Univer s acid, 6-05 tablet by ity of vitamin C, 16:31: mouth in [place] 500 mg 34 the Medical tablet morning. Branch MAGNESIUM 2022-0 Yes Take by Unive rs OXIDE 400 6-05 mouth ity of mg 16:31: daily. [place] magnesium 34 Medical Tab Branch VITAMIN A 2022-0 Yes 1000mg Take 1,000 [facility] ORAL 6-05 mg by ity of 16:31: mouth in [place] 34 the Medical morning. Branch vit C/vit E 2022-0 Yes 1{tbl} Take 1 Un [place] ac/selenium 6-05 tablet by ity of /ginkgo 16:31: mouth in [place] (MEMORY 34 the Medical COMPLEX morning. Branch ORAL) cyanocobala 2022-0 Yes 1{tbl} Take 1 Un [place] min, 6-05 tablet by ity of vitamin 16:31: mouth in [place] B-12, 34 the Medical (VITAMIN morning. Branch B-12 ORAL) vitamin E 2022-0 Yes 1{tbl} Take 1 Univ ers acetate 6-05 tablet by ity of (VITAMIN E 16:31: mouth in [place] as ORAL) 34 the Medical morning. Branch vit 2022-0 Yes 1{capsu Take 1 [facility] C/E/zinc 6-05 le} capsule by ity o f ox/howard/lut 16:31: mouth in [place] /zeax 34 the Medical (ICAPS morning. Branch AREDS2 ORAL) omega-3/dha 2022-0 Yes 1{capsu Take 1 U nivers /epa/fish 6-05 le} capsule by ity of oil 16:31: mouth in [place] (OMEGA-3 34 the Medical FISH OIL morning. Branch ORAL) Cholecalcif 2022-0 Yes 2000U Take 1 [facility] vers [place], 6-05 capsule by ity of Vitamin D3, 16:31: mouth in [place] 50 mcg 34 the Medical (2,000 morning. Branch unit) capsule leflunomide 2022-0 Yes 20mg Take 1 Univ ers 20 mg 6-05 tablet by ity of tablet 16:31: mouth in [place] 34 the Medical morning. Branch ascorbic 2022-0 Yes 500mg Take 1 Univer s acid, 6-05 tablet by ity of vitamin C, 16:31: mouth in [place] 500 mg 34 the Medical tablet morning. Branch MAGNESIUM 2022-0 Yes Take by Unive rs OXIDE 400 6-05 mouth ity of mg 16:31: daily. [place] magnesium 34 Medical Tab Branch VITAMIN A 2022-0 Yes 1000mg Take 1,000 [facility] ORAL 6-05 mg by ity of 16:31: mouth in [place] 34 the Medical morning. Branch vit C/vit E 2022-0 Yes 1{tbl} Take 1 Un [place] ac/selenium 6-05 tablet by ity of /ginkgo 16:31: mouth in [place] (MEMORY 34 the Medical COMPLEX morning. Branch ORAL) cyanocobala 2022-0 Yes 1{tbl} Take 1 Un [facility] min, 6-05 tablet by ity of vitamin 16:31: mouth in [place] B-12, 34 the Medical (VITAMIN morning. Branch B-12 ORAL) vitamin E 2022-0 Yes 1{tbl} Take 1 Univ ers acetate 6-05 tablet by ity of (VITAMIN E 16:31: mouth in [place] as ORAL) 34 the Medical morning. Branch vit 3-0 Yes 1{capsu Take 1 [facility] C/E/zinc 6-05 le} capsule by ity o f ox/howard/lut 16:31: mouth in [place] /zeax 34 the Medical (ICAPS morning. Branch AREDS2 ORAL) omega-3/dha 2022-0 Yes 1{capsu Take 1 U nivers /epa/fish 6-05 le} capsule by ity of oil 16:31: mouth in [place] (OMEGA-3 34 the Medical FISH OIL morning. Branch ORAL) Cholecalcif 3-0 Yes 2000U Take 1 [facility] vers [place], 6-05 capsule by ity of Vitamin D3, 16:31: mouth in [place] 50 mcg 34 the Medical (2,000 morning. Branch unit) capsule leflunomide 2022-0 Yes 20mg Take 1 Univ ers 20 mg 6-05 tablet by ity of tablet 16:31: mouth in [place] 34 the Medical morning. Branch ascorbic 2023-0 Yes 500mg Take 1 Univer s acid, 6-05 tablet by ity of vitamin C, 16:31: mouth in [place] 500 mg 34 the Medical tablet morning. Branch MAGNESIUM 3-0 Yes Take by Unive rs OXIDE 400 6-05 mouth ity of mg 16:31: daily. [place] magnesium 34 Medical Tab Branch VITAMIN A 2022-0 Yes 1000mg Take 1,000 [facility] ORAL 6-05 mg by ity of 16:31: mouth in [place] 34 the Medical morning. Branch vit C/vit E 2022-0 Yes 1{tbl} Take 1 Un [place] ac/selenium 6-05 tablet by ity of /ginkgo 16:31: mouth in [place] (MEMORY 34 the Medical COMPLEX morning. Branch ORAL) cyanocobala 2022-0 Yes 1{tbl} Take 1 Un sar[facility] min, 6-05 tablet by ity of vitamin 16:31: mouth in [place] B-12, 34 the Medical (VITAMIN morning. Branch B-12 ORAL) vitamin E 2022-0 Yes 1{tbl} Take 1 Univ ers acetate 6-05 tablet by ity of (VITAMIN E 16:31: mouth in [place] ORAL) 34 the Medical morning. Branch vit 2022-0 Yes 1{capsu Take 1 [facility] C/E/zinc 6-05 le} capsule by ity o f ox/howard/lut 16:31: mouth in [place] /zeax 34 the Medical (ICAPS morning. Branch AREDS2 ORAL) omega-3/dha 2022-0 Yes 1{capsu Take 1 U nivers /epa/fish 6-05 le} capsule by ity of oil 16:31: mouth in [place] (OMEGA-3 34 the Medical FISH OIL morning. Branch ORAL) Cholecalcif 2022-0 Yes 2000U Take 1 [facility] vers [place], 6-05 capsule by ity of Vitamin D3, 16:31: mouth in [place] 50 mcg 34 the Medical (2,000 morning. Branch unit) capsule leflunomide 2022-0 Yes 20mg Take 1 Univ ers 20 mg 6-05 tablet by ity of tablet 16:31: mouth in [place] 34 the Medical morning. Branch ascorbic 2022-0 Yes 500mg Take 1 Univer s acid, 6-05 tablet by ity of vitamin C, 16:31: mouth in [facility] as 500 mg 34 the Medical tablet morning. Branch MAGNESIUM 2022-0 Yes Take by [facility] rs OXIDE 400 6-05 mouth ity of mg 16:31: daily. [place] magnesium 34 Medical Tab Branch VITAMIN A 2022-0 Yes 1000mg Take 1,000 [facility] ORAL 6-05 mg by ity of 16:31: mouth in [place] 34 the Medical morning. Branch vit C/vit E 2022-0 Yes 1{tbl} Take 1 [facility] ac/selenium 6-05 tablet by ity of /ginkgo 16:31: mouth in [place] (MEMORY 34 the Medical COMPLEX morning. Branch ORAL) cyanocobala 2022-0 Yes 1{tbl} Take 1 [facility] min, 6-05 tablet by ity of vitamin 16:31: mouth in [place] B-12, 34 the Medical (VITAMIN morning. Branch B-12 ORAL) vitamin E 2022-0 Yes 1{tbl} Take 1 [facility] acetate 6-05 tablet by ity of (VITAMIN E 16:31: mouth in [place] as ORAL) 34 the Medical morning. Branch vit 2022-0 Yes 1{capsu Take 1 [facility] C/E/zinc 6-05 le} capsule by ity o f ox/howard/lut 16:31: mouth in [place] /zeax 34 the Medical (ICAPS morning. Branch AREDS2 ORAL) omega-3/dha 2022-0 Yes 1{capsu Take 1 U n[facility] /epa/fish 6-05 le} capsule by ity of oil 16:31: mouth in [place] (OMEGA-3 34 the Medical FISH OIL morning. Branch ORAL) Cholecalcif 2022-0 Yes 2000U Take 1 [facility], 6-05 capsule by ity of Vitamin D3, 16:31: mouth in [place] 50 mcg 34 the Medical (2,000 morning. Branch unit) capsule leflunomide 2022-0 Yes 20mg Take 1 [facility] 20 mg 6-05 tablet by ity of tablet 16:31: mouth in [place] 34 the Medical morning. Branch ascorbic 3-0 Yes 500mg Take 1 [facility] acid, 6-05 tablet by ity of vitamin C, 16:31: mouth in [place] 500 mg 34 the Medical tablet morning. Branch MAGNESIUM 2022-0 Yes Take by [facility] rs OXIDE 400 6-05 mouth ity of mg 16:31: daily. [place] magnesium 34 Medical Tab Branch VITAMIN A 2022-0 Yes 1000mg Take 1,000 [facility] ORAL 6-05 mg by ity of 16:31: mouth in [place] 34 the Medical morning. Branch vit C/vit E 2022-0 Yes 1{tbl} Take 1 [facility] ac/selenium 6-05 tablet by ity of /ginkgo 16:31: mouth in [place] (MEMORY 34 the Medical COMPLEX morning. Branch ORAL) cyanocobala 2022-0 Yes 1{tbl} Take 1 [facility] min, 6-05 tablet by ity of vitamin 16:31: mouth in [place] B-12, 34 the Medical (VITAMIN morning. Branch B-12 ORAL) vitamin E 2022-0 Yes 1{tbl} Take 1 [facility] acetate 6-05 tablet by ity of (VITAMIN E 16:31: mouth in [place] as ORAL) 34 the Medical morning. Branch vit 2022-0 Yes 1{capsu Take 1 [facility] C/E/zinc 6-05 le} capsule by ity o f ox/howard/lut 16:31: mouth in [place] /zeax 34 the Medical (ICAPS morning. Branch AREDS2 ORAL) omega-3/dha 2022-0 Yes 1{capsu Take 1 [facility] n[facility] /epa/fish 6-05 le} capsule by ity of oil 16:31: mouth in [place] (OMEGA-3 34 the Medical FISH OIL morning. Branch ORAL) Cholecalcif 2022-0 Yes 2000U Take 1 [facility], 6-05 capsule by ity of Vitamin D3, 16:31: mouth in [place] 50 mcg 34 the Medical (2,000 morning. Branch unit) capsule leflunomide 2022-0 Yes 20mg Take 1 [facility] 20 mg 6-05 tablet by ity of tablet 16:31: mouth in [place] 34 the Medical morning. Branch ascorbic 2022-0 Yes 500mg Take 1 [facility] acid, 6-05 tablet by ity of vitamin C, 16:31: mouth in [facility] as 500 mg 34 the Medical tablet morning. Branch MAGNESIUM 2022-0 Yes Take by [facility] rs OXIDE 400 6-05 mouth ity of mg 16:31: daily. [place] magnesium 34 Medical Tab Branch VITAMIN A 2022-0 Yes 1000mg Take 1,000 [facility] ORAL 6-05 mg by ity of 16:31: mouth in [place] 34 the Medical morning. Branch vit C/vit E 2022-0 Yes 1{tbl} Take 1 [facility] ac/selenium 6-05 tablet by ity of /ginkgo 16:31: mouth in [place] (MEMORY 34 the Medical COMPLEX morning. Branch ORAL) cyanocobala 2022-0 Yes 1{tbl} Take 1 [facility] min, 6-05 tablet by ity of vitamin 16:31: mouth in [place] B-12, 34 the Medical (VITAMIN morning. Branch B-12 ORAL) vitamin E 2022-0 Yes 1{tbl} Take 1 [facility] acetate 6-05 tablet by ity of (VITAMIN E 16:31: mouth in [place] as ORAL) 34 the Medical morning. Branch vit 2022-0 Yes 1{capsu Take 1 [facility] C/E/zinc 6-05 le} capsule by ity o f ox/howard/lut 16:31: mouth in [place] /zeax 34 the Medical (ICAPS morning. Branch AREDS2 ORAL) omega-3/dha 2022-0 Yes 1{capsu Take 1 [facility] /epa/fish 6-05 le} capsule by ity of oil 16:31: mouth in [place] (OMEGA-3 34 the Medical FISH OIL morning. Branch ORAL) Cholecalcif 2022-0 Yes 2000U Take 1 [facility], 6-05 capsule by ity of Vitamin D3, 16:31: mouth in [place] 50 mcg 34 the Medical (2,000 morning. Branch unit) capsule leflunomide 2022-0 Yes 20mg Take 1 [facility] 20 mg 6-05 tablet by ity of tablet 16:31: mouth in [place] 34 the Medical morning. Branch ascorbic 2022-0 Yes 500mg Take 1 [facility] acid, 6-05 tablet by ity of vitamin C, 16:31: mouth in [place] as 500 mg 34 the Medical tablet morning. Branch MAGNESIUM 2022-0 Yes Take by [facility] rs OXIDE 400 6-05 mouth ity of mg 16:31: daily. [place] magnesium 34 Medical Tab Branch VITAMIN A 2022-0 Yes 1000mg Take 1,000 [facility] ORAL 6-05 mg by ity of 16:31: mouth in [place] 34 the Medical morning. Branch vit C/vit E 2022-0 Yes 1{tbl} Take 1 [facility] ac/selenium 6-05 tablet by ity of /ginkgo 16:31: mouth in [place] (MEMORY 34 the Medical COMPLEX morning. Branch ORAL) cyanocobala 2022-0 Yes 1{tbl} Take 1 [facility] min, 6-05 tablet by ity of vitamin 16:31: mouth in [place] B-12, 34 the Medical (VITAMIN morning. Branch B-12 ORAL) vitamin E 2022-0 Yes 1{tbl} Take 1 [facility] ers acetate 6-05 tablet by ity of (VITAMIN E 16:31: mouth in [place] as ORAL) 34 the Medical morning. Branch vit 2022-0 Yes 1{capsu Take 1 [facility] C/E/zinc 6-05 le} capsule by ity o f ox/howard/lut 16:31: mouth in [place] /zeax 34 the Medical (ICAPS morning. Branch AREDS2 ORAL) omega-3/dha 2022-0 Yes 1{capsu Take 1 [facility] nivers /epa/fish 6-05 le} capsule by ity of oil 16:31: mouth in [place] (OMEGA-3 34 the Medical FISH OIL morning. Branch ORAL) Cholecalcif 2022-0 Yes 2000U Take 1 [facility] [place], 6-05 capsule by ity of Vitamin D3, 16:31: mouth in [place] 50 mcg 34 the Medical (2,000 morning. Branch unit) capsule leflunomide 2022-0 Yes 20mg Take 1 [facility] ers 20 mg 6-05 tablet by ity of tablet 16:31: mouth in [place] 34 the Medical morning. Branch ascorbic 2022-0 Yes 500mg Take 1 [facility] s acid, 6-05 tablet by ity of vitamin C, 16:31: mouth in [facility] as 500 mg 34 the Medical tablet morning. Branch MAGNESIUM 2022-0 Yes Take by [facility]ive rs OXIDE 400 6-05 mouth ity of mg 16:31: daily. [place] magnesium 34 Medical Tab Branch VITAMIN A 2022-0 Yes 1000mg Take 1,000 [facility] ORAL 6-05 mg by ity of 16:31: mouth in [place] 34 the Medical morning. Branch vit C/vit E 2022-0 Yes 1{tbl} Take 1 [facility] ac/selenium 6-05 tablet by ity of /ginkgo 16:31: mouth in [place] (MEMORY 34 the Medical COMPLEX morning. Branch ORAL) cyanocobala 2022-0 Yes 1{tbl} Take 1 [facility] min, 6-05 tablet by ity of vitamin 16:31: mouth in [place] B-12, 34 the Medical (VITAMIN morning. Branch B-12 ORAL) vitamin E 2022-0 Yes 1{tbl} Take 1 [facility] ers acetate 6-05 tablet by ity of (VITAMIN E 16:31: mouth in [place] as ORAL) 34 the Medical morning. Branch vit 2022-0 Yes 1{capsu Take 1 [facility] C/E/zinc 6-05 le} capsule by ity o f ox/howard/lut 16:31: mouth in [place] /zeax 34 the Medical (ICAPS morning. Branch AREDS2 ORAL) omega-3/dha 2022-0 Yes 1{capsu Take 1 [facility] nivers /epa/fish 6-05 le} capsule by ity of oil 16:31: mouth in [place] (OMEGA-3 34 the Medical FISH OIL morning. Branch ORAL) Cholecalcif 2022-0 Yes 2000U Take 1 [facility], 6-05 capsule by ity of Vitamin D3, 16:31: mouth in [place] 50 mcg 34 the Medical (2,000 morning. Branch unit) capsule leflunomide 2022-0 Yes 20mg Take 1 [facility] ers 20 mg 6-05 tablet by ity of tablet 16:31: mouth in [place] 34 the Medical morning. Branch ascorbic 2022-0 Yes 500mg Take 1 [facility] acid, 6-05 tablet by ity of vitamin C, 16:31: mouth in [place] 500 mg 34 the Medical tablet morning. Branch MAGNESIUM 0 Yes Take by Unive rs OXIDE 400 6-05 mouth ity of mg 16:31: daily. [place] magnesium 34 Medical Tab Branch VITAMIN A 2022-0 Yes 1000mg Take 1,000 [facility] ORAL 6-05 mg by ity of 16:31: mouth in [place] 34 the Medical morning. Branch vit C/vit E 0 Yes 1{tbl} Take 1 [facility] ac/selenium 6-05 tablet by ity of /ginkgo 16:31: mouth in [place] (MEMORY 34 the Medical COMPLEX morning. Branch ORAL) cyanocobala 2022-0 Yes 1{tbl} Take 1 [facility] min, 6-05 tablet by ity of vitamin 16:31: mouth in [place] B-12, 34 the Medical (VITAMIN morning. Branch B-12 ORAL) vitamin E 2022-0 Yes 1{tbl} Take 1 [facility] ers acetate 6-05 tablet by ity of (VITAMIN E 16:31: mouth in [place] as ORAL) 34 the Medical morning. Branch vit 3-0 Yes 1{capsu Take 1 [facility] C/E/zinc 6-05 le} capsule by ity o f ox/howard/lut 16:31: mouth in [place] /zeax 34 the Medical (ICAPS morning. Branch AREDS2 ORAL) omega-3/dha 2022-0 Yes 1{capsu Take 1 U nivers /epa/fish 6-05 le} capsule by ity of oil 16:31: mouth in [place] (OMEGA-3 34 the Medical FISH OIL morning. Branch ORAL) Cholecalcif 2022-0 Yes 2000U Take 1 [facility] [place], 6-05 capsule by ity of Vitamin D3, 16:31: mouth in [place] 50 mcg 34 the Medical (2,000 morning. Branch unit) capsule leflunomide 2022-0 Yes 20mg Take 1 [facility] ers 20 mg 6-05 tablet by ity of tablet 16:31: mouth in [place] 34 the Medical morning. Branch ascorbic 2022-0 Yes 500mg Take 1 Univer s acid, 6-05 tablet by ity of vitamin C, 16:31: mouth in [place] 500 mg 34 the Medical tablet morning. Branch MAGNESIUM 2022-0 Yes Take by Unive rs OXIDE 400 6-05 mouth ity of mg 16:31: daily. [place] magnesium 34 Medical Tab Branch VITAMIN A 2022-0 Yes 1000mg Take 1,000 [facility] ORAL 6-05 mg by ity of 16:31: mouth in [place] 34 the Medical morning. Branch vit C/vit E 2022-0 Yes 1{tbl} Take 1 [facility] ac/selenium 6-05 tablet by ity of /ginkgo 16:31: mouth in [place] (MEMORY 34 the Medical COMPLEX morning. Branch ORAL) cyanocobala 2022-0 Yes 1{tbl} Take 1 [facility] min, 6-05 tablet by ity of vitamin 16:31: mouth in [place] B-12, 34 the Medical (VITAMIN morning. Branch B-12 ORAL) vitamin E 2022-0 Yes 1{tbl} Take 1 [facility] ers acetate 6-05 tablet by ity of (VITAMIN E 16:31: mouth in [place] as ORAL) 34 the Medical morning. Branch vit 3-0 Yes 1{capsu Take 1 [facility] C/E/zinc 6-05 le} capsule by ity o f ox/howard/lut 16:31: mouth in [place] /zeax 34 the Medical (ICAPS morning. Branch AREDS2 ORAL) omega-3/dha 2022-0 Yes 1{capsu Take 1 U nivers /epa/fish 6-05 le} capsule by ity of oil 16:31: mouth in [place] (OMEGA-3 34 the Medical FISH OIL morning. Branch ORAL) Cholecalcif 2022-0 Yes 2000U Take 1 [facility], 6-05 capsule by ity of Vitamin D3, 16:31: mouth in [place] 50 mcg 34 the Medical (2,000 morning. Branch unit) capsule leflunomide 2022-0 Yes 20mg Take 1 [facility] ers 20 mg 6-05 tablet by ity of tablet 16:31: mouth in [place] 34 the Medical morning. Branch ascorbic 2022-0 Yes 500mg Take 1 Univer s acid, 6-05 tablet by ity of vitamin C, 16:31: mouth in [place] 500 mg 34 the Medical tablet morning. Branch MAGNESIUM 2022-0 Yes Take by Unive rs OXIDE 400 6-05 mouth ity of mg 16:31: daily. [place] magnesium 34 Medical Tab Branch VITAMIN A 2022-0 Yes 1000mg Take 1,000 [facility] ORAL 6-05 mg by ity of 16:31: mouth in [place] 34 the Medical morning. Branch vit C/vit E 2022-0 Yes 1{tbl} Take 1 [facility] ac/selenium 6-05 tablet by ity of /ginkgo 16:31: mouth in [place] (MEMORY 34 the Medical COMPLEX morning. Branch ORAL) cyanocobala 2022-0 Yes 1{tbl} Take 1 Un [facility] min, 6-05 tablet by ity of vitamin 16:31: mouth in [place] B-12, 34 the Medical (VITAMIN morning. Branch B-12 ORAL) vitamin E 2022-0 Yes 1{tbl} Take 1 [facility] ers acetate 6-05 tablet by ity of (VITAMIN E 16:31: mouth in [place] as ORAL) 34 the Medical morning. Branch vit 2022-0 Yes 1{capsu Take 1 [facility] C/E/zinc 6-05 le} capsule by ity o f ox/howard/lut 16:31: mouth in [place] /zeax 34 the Medical (ICAPS morning. Branch AREDS2 ORAL) omega-3/dha 3-0 Yes 1{capsu Take 1 U nivers /epa/fish 6-05 le} capsule by ity of oil 16:31: mouth in [place] (OMEGA-3 34 the Medical FISH OIL morning. Branch ORAL) Cholecalcif 2023-0 Yes 2000U Take 1 [facility] [place], 6-05 capsule by ity of Vitamin D3, 16:31: mouth in [place] 50 mcg 34 the Medical (2,000 morning. Branch unit) capsule leflunomide 2022-0 Yes 20mg Take 1 [facility] ers 20 mg 6-05 tablet by ity of tablet 16:31: mouth in [place] 34 the Medical morning. Branch ascorbic 3-0 Yes 500mg Take 1 Univer s acid, 6-05 tablet by ity of vitamin C, 16:31: mouth in [place] as 500 mg 34 the Medical tablet morning. Branch MAGNESIUM 2022-0 Yes Take by Unive rs OXIDE 400 6-05 mouth ity of mg 16:31: daily. [place] magnesium 34 Medical Tab Branch VITAMIN A 2022-0 Yes 1000mg Take 1,000 [facility] ORAL 6-05 mg by ity of 16:31: mouth in [place] 34 the Medical morning. Branch vit C/vit E 2022-0 Yes 1{tbl} Take 1 Un [facility] ac/selenium 6-05 tablet by ity of /ginkgo 16:31: mouth in [place] (MEMORY 34 the Medical COMPLEX morning. Branch ORAL) cyanocobala 2022-0 Yes 1{tbl} Take 1 Un sar[facility] min, 6-05 tablet by ity of vitamin 16:31: mouth in [place] B-12, 34 the Medical (VITAMIN morning. Branch B-12 ORAL) vitamin E 3-0 Yes 1{tbl} Take 1 [facility] ers acetate 6-05 tablet by ity of (VITAMIN E 16:31: mouth in [place] as ORAL) 34 the Medical morning. Branch vit 3-0 Yes 1{capsu Take 1 [facility] C/E/zinc 6-05 le} capsule by ity o f ox/howard/lut 16:31: mouth in [place] /zeax 34 the Medical (ICAPS morning. Branch AREDS2 ORAL) omega-3/dha 2023-0 Yes 1{capsu Take 1 U nivers /epa/fish 6-05 le} capsule by ity of oil 16:31: mouth in [place] (OMEGA-3 34 the Medical FISH OIL morning. Branch ORAL) Cholecalcif 2022-0 Yes 2000U Take 1 [facility] [place], 6-05 capsule by ity of Vitamin D3, 16:31: mouth in [place] 50 mcg 34 the Medical (2,000 morning. Branch unit) capsule leflunomide 2022-0 Yes 20mg Take 1 [facility] ers 20 mg 6-05 tablet by ity of tablet 16:31: mouth in [place] 34 the Medical morning. Branch ascorbic 2022-0 Yes 500mg Take 1 Univer s acid, 6-05 tablet by ity of vitamin C, 16:31: mouth in [facility] as 500 mg 34 the Medical tablet morning. Branch MAGNESIUM 2022-0 Yes Take by Unive rs OXIDE 400 6-05 mouth ity of mg 16:31: daily. [place] magnesium 34 Medical Tab Branch VITAMIN A 2022-0 Yes 1000mg Take 1,000 [facility] ORAL 6-05 mg by ity of 16:31: mouth in [place] 34 the Medical morning. Branch vit C/vit E 2022-0 Yes 1{tbl} Take 1 [facility] ac/selenium 6-05 tablet by ity of /ginkgo 16:31: mouth in [place] (MEMORY 34 the Medical COMPLEX morning. Branch ORAL) cyanocobala 2022-0 Yes 1{tbl} Take 1 Un [facility] min, 6-05 tablet by ity of vitamin 16:31: mouth in [place] B-12, 34 the Medical (VITAMIN morning. Branch B-12 ORAL) vitamin E 2022-0 Yes 1{tbl} Take 1 [facility] ers acetate 6-05 tablet by ity of (VITAMIN E 16:31: mouth in [place] as ORAL) 34 the Medical morning. Branch vit 3-0 Yes 1{capsu Take 1 [facility] C/E/zinc 6-05 le} capsule by ity o f ox/howard/lut 16:31: mouth in [place] /zeax 34 the Medical (ICAPS morning. Branch AREDS2 ORAL) omega-3/dha 2022-0 Yes 1{capsu Take 1 U nivers /epa/fish 6-05 le} capsule by ity of oil 16:31: mouth in [place] (OMEGA-3 34 the Medical FISH OIL morning. Branch ORAL) Cholecalcif 202-0 Yes 2000U Take 1 [facility] [place], 6-05 capsule by ity of Vitamin D3, 16:31: mouth in [place] 50 mcg 34 the Medical (2,000 morning. Branch unit) capsule leflunomide 2022-0 Yes 20mg Take 1 [facility] ers 20 mg 6-05 tablet by ity of tablet 16:31: mouth in [place] 34 the Medical morning. Branch ascorbic 2023-0 Yes 500mg Take 1 Univer s acid, 6-05 tablet by ity of vitamin C, 16:31: mouth in [place] as 500 mg 34 the Medical tablet morning. Branch MAGNESIUM 2022-0 Yes Take by Unive rs OXIDE 400 6-05 mouth ity of mg 16:31: daily. [place] magnesium 34 Medical Tab Branch VITAMIN A 2022-0 Yes 1000mg Take 1,000 [facility] ORAL 6-05 mg by ity of 16:31: mouth in [place] 34 the Medical morning. Branch vit C/vit E 2022-0 Yes 1{tbl} Take 1 [facility] ac/selenium 6-05 tablet by ity of /ginkgo 16:31: mouth in [place] (MEMORY 34 the Medical COMPLEX morning. Branch ORAL) cyanocobala 2022-0 Yes 1{tbl} Take 1 Un [facility] min, 6-05 tablet by ity of vitamin 16:31: mouth in [place] B-12, 34 the Medical (VITAMIN morning. Branch B-12 ORAL) vitamin E 2022-0 Yes 1{tbl} Take 1 [facility] ers acetate 6-05 tablet by ity of (VITAMIN E 16:31: mouth in [place] as ORAL) 34 the Medical morning. Branch vit 3-0 Yes 1{capsu Take 1 [facility] C/E/zinc 6-05 le} capsule by ity o f ox/howard/lut 16:31: mouth [place] /zeax 34 the Medical (ICAPS morning. Branch AREDS2 ORAL) omega-3/dha 2022-0 Yes 1{capsu Take 1 U nivers /epa/fish 6-05 le} capsule by ity of oil 16:31: mouth in [place] (OMEGA-3 34 the Medical FISH OIL morning. Branch ORAL) Cholecalcif 2023-0 Yes 2000U Take 1 [facility] [place], 6-05 capsule by ity of Vitamin D3, 16:31: mouth in [place] 50 mcg 34 the Medical (2,000 morning. Branch unit) capsule Cholecalcif 2023-0 Yes 2000U Take 1 [facility] [place], 6-05 capsule by ity of Vitamin D3, 16:31: mouth in [place] 50 mcg 34 the Medical (2,000 morning. Branch unit) capsule Cholecalcif 2023-0 Yes 2000U Take 1 [facility] [place], 6-05 capsule by ity of Vitamin D3, 16:31: mouth in [place] 50 mcg 34 the Medical (2,000 morning. Branch unit) capsule leflunomide 3-0 Yes 20mg Take 1 [facility] ers 20 mg 6-05 tablet by ity of tablet 16:31: mouth in [place] 34 the Medical morning. Branch ascorbic 2022-0 Yes 500mg Take 1 Univer s acid, 6-05 tablet by ity of vitamin C, 16:31: mouth in [facility] as 500 mg 34 the Medical tablet morning. Branch MAGNESIUM 2022-0 Yes Take by Unive rs OXIDE 400 6-05 mouth ity of mg 16:31: daily. [place] magnesium 34 Medical Tab Branch VITAMIN A 2022-0 Yes 1000mg Take 1,000 [facility] ORAL 6-05 mg by ity of 16:31: mouth in [place] 34 the Medical morning. Branch vit C/vit E 2022-0 Yes 1{tbl} Take 1 [facility] ac/selenium 6-05 tablet by ity of /ginkgo 16:31: mouth in [place] (MEMORY 34 the Medical COMPLEX morning. Branch ORAL) cyanocobala 2022-0 Yes 1{tbl} Take 1 Un [facility] min, 6-05 tablet by ity of vitamin 16:31: mouth in [place] B-12, 34 the Medical (VITAMIN morning. Branch B-12 ORAL) vitamin E 2022-0 Yes 1{tbl} Take 1 [facility] ers acetate 6-05 tablet by ity of (VITAMIN E 16:31: mouth in [place] as ORAL) 34 the Medical morning. Branch vit 3-0 Yes 1{capsu Take 1 [facility] C/E/zinc 6-05 le} capsule by ity o f ox/howard/lut 16:31: mouth in [place] /zeax 34 the Medical (ICAPS morning. Branch AREDS2 ORAL) omega-3/dha 3-0 Yes 1{capsu Take 1 U nivers /epa/fish 6-05 le} capsule by ity of oil 16:31: mouth in [place] (OMEGA-3 34 the Medical FISH OIL morning. Branch ORAL) Cholecalcif 3-0 Yes 2000U Take 1 [facility], 6-05 capsule by ity of Vitamin D3, 16:31: mouth in [place] 50 mcg 34 the Medical (2,000 morning. Branch unit) capsule leflunomide 3-0 Yes 20mg Take 1 [facility] ers 20 mg 6-05 tablet by ity of tablet 16:31: mouth in [place] 34 the Medical morning. Branch ascorbic 3-0 Yes 500mg Take 1 Univer s acid, 6-05 tablet by ity of vitamin C, 16:31: mouth in [place] 500 mg 34 the Medical tablet morning. Branch MAGNESIUM 2022-0 Yes Take by Unive rs OXIDE 400 6-05 mouth ity of mg 16:31: daily. [place] magnesium 34 Medical Tab Branch VITAMIN A 2022-0 Yes 1000mg Take 1,000 [facility] ORAL 6-05 mg by ity of 16:31: mouth in [place] 34 the Medical morning. Branch vit C/vit E 2022-0 Yes 1{tbl} Take 1 [facility] ac/selenium 6-05 tablet by ity of /ginkgo 16:31: mouth in [place] (MEMORY 34 the Medical COMPLEX morning. Branch ORAL) cyanocobala 2022-0 Yes 1{tbl} Take 1 Un [facility] min, 6-05 tablet by ity of vitamin 16:31: mouth in [place] B-12, 34 the Medical (VITAMIN morning. Branch B-12 ORAL) vitamin E 3-0 Yes 1{tbl} Take 1 [facility] ers acetate 6-05 tablet by ity of (VITAMIN E 16:31: mouth in [place] as ORAL) 34 the Medical morning. Branch vit 2023-0 Yes 1{capsu Take 1 [facility] C/E/zinc 6-05 le} capsule by ity o f ox/howard/lut 16:31: mouth in [place] /zeax 34 the Medical (ICAPS morning. Branch AREDS2 ORAL) omega-3/dha 2023-0 Yes 1{capsu Take 1 U nivers /epa/fish 6-05 le} capsule by ity of oil 16:31: mouth in [place] (OMEGA-3 34 the Medical FISH OIL morning. Branch ORAL) Cholecalcif 2022-0 Yes 2000U Take 1 [facility] [place], 6-05 capsule by ity of Vitamin D3, 16:31: mouth in [place] 50 mcg 34 the Medical (2,000 morning. Branch unit) capsule leflunomide 2022-0 Yes 20mg Take 1 [facility] ers 20 mg 6-05 tablet by ity of tablet 16:31: mouth in [place] 34 the Medical morning. Branch ascorbic 2022-0 Yes 500mg Take 1 Univer s acid, 6-05 tablet by ity of vitamin C, 16:31: mouth in [facility] as 500 mg 34 the Medical tablet morning. Branch MAGNESIUM 2022-0 Yes Take by Unive rs OXIDE 400 6-05 mouth ity of mg 16:31: daily. [place] magnesium 34 Medical Tab Branch VITAMIN A 2022-0 Yes 1000mg Take 1,000 [facility] ORAL 6-05 mg by ity of 16:31: mouth in [place] 34 the Medical morning. Branch vit C/vit E 0 Yes 1{tbl} Take 1 [facility] ac/selenium 6-05 tablet by ity of /ginkgo 16:31: mouth in [place] (MEMORY 34 the Medical COMPLEX morning. Branch ORAL) cyanocobala 2022-0 Yes 1{tbl} Take 1 [facility] min, 6-05 tablet by ity of vitamin 16:31: mouth in [place] B-12, 34 the Medical (VITAMIN morning. Branch B-12 ORAL) vitamin E 2022-0 Yes 1{tbl} Take 1 [facility] ers acetate 6-05 tablet by ity of (VITAMIN E 16:31: mouth in [place] as ORAL) 34 the Medical morning. Branch vit 2022-0 Yes 1{capsu Take 1 [facility] C/E/zinc 6-05 le} capsule by ity o f ox/howard/lut 16:31: mouth in [place] /zeax 34 the Medical (ICAPS morning. Branch AREDS2 ORAL) omega-3/dha 2022-0 Yes 1{capsu Take 1 U nivers /epa/fish 6-05 le} capsule by ity of oil 16:31: mouth in [place] (OMEGA-3 34 the Medical FISH OIL morning. Branch ORAL) Cholecalcif 2023-0 Yes 2000U Take 1 [facility] [place], 6-05 capsule by ity of Vitamin D3, 16:31: mouth in [place] 50 mcg 34 the Medical (2,000 morning. Branch unit) capsule leflunomide 2022-0 Yes 20mg Take 1 [facility] ers 20 mg 6-05 tablet by ity of tablet 16:31: mouth in [place] 34 the Medical morning. Branch ascorbic 3-0 Yes 500mg Take 1 Univer s acid, 6-05 tablet by ity of vitamin C, 16:31: mouth in [place] 500 mg 34 the Medical tablet morning. Branch MAGNESIUM 2022-0 Yes Take by Unive rs OXIDE 400 6-05 mouth ity of mg 16:31: daily. [place] magnesium 34 Medical Tab Branch VITAMIN A 2022-0 Yes 1000mg Take 1,000 [facility] ORAL 6-05 mg by ity of 16:31: mouth in [place] 34 the Medical morning. Branch vit C/vit E 2022-0 Yes 1{tbl} Take 1 [facility] ac/selenium 6-05 tablet by ity of /ginkgo 16:31: mouth in [place] (MEMORY 34 the Medical COMPLEX morning. Branch ORAL) cyanocobala 2022-0 Yes 1{tbl} Take 1 [facility] min, 6-05 tablet by ity of vitamin 16:31: mouth in [place] B-12, 34 the Medical (VITAMIN morning. Branch B-12 ORAL) vitamin E 2022-0 Yes 1{tbl} Take 1 [facility] ers acetate 6-05 tablet by ity of (VITAMIN E 16:31: mouth in [place] as ORAL) 34 the Medical morning. Branch vit 2022-0 Yes 1{capsu Take 1 [facility] C/E/zinc 6-05 le} capsule by ity o f ox/howard/lut 16:31: mouth in [place] /zeax 34 the Medical (ICAPS morning. Branch AREDS2 ORAL) omega-3/dha 2022-0 Yes 1{capsu Take 1 U nivers /epa/fish 6-05 le} capsule by ity of oil 16:31: mouth in [place] (OMEGA-3 34 the Medical FISH OIL morning. Branch ORAL) Cholecalcif 2023-0 Yes 2000U Take 1 [facility] [place], 6-05 capsule by ity of Vitamin D3, 16:31: mouth in [place] 50 mcg 34 the Medical (2,000 morning. Branch unit) capsule leflunomide 2022-0 Yes 20mg Take 1 [facility] ers 20 mg 6-05 tablet by ity of tablet 16:31: mouth in [place] 34 the Medical morning. Branch ascorbic 2022-0 Yes 500mg Take 1 Univer s acid, 6-05 tablet by ity of vitamin C, 16:31: mouth in [place] 500 mg 34 the Medical tablet morning. Branch MAGNESIUM 2022-0 Yes Take by Unive rs OXIDE 400 6-05 mouth ity of mg 16:31: daily. [place] magnesium 34 Medical Tab Branch VITAMIN A 2022-0 Yes 1000mg Take 1,000 [facility] ORAL 6-05 mg by ity of 16:31: mouth in [place] 34 the Medical morning. Branch vit C/vit E 0 Yes 1{tbl} Take 1 [facility] ac/selenium 6-05 tablet by ity of /ginkgo 16:31: mouth in [place] (MEMORY 34 the Medical COMPLEX morning. Branch ORAL) cyanocobala 2022-0 Yes 1{tbl} Take 1 Un [place] min, 6-05 tablet by ity of vitamin 16:31: mouth in [place] B-12, 34 the Medical (VITAMIN morning. Branch B-12 ORAL) vitamin E 2022-0 Yes 1{tbl} Take 1 [facility] ers acetate 6-05 tablet by ity of (VITAMIN E 16:31: mouth in [place] as ORAL) 34 the Medical morning. Branch vit 2022-0 Yes 1{capsu Take 1 [facility] C/E/zinc 6-05 le} capsule by ity o f ox/howard/lut 16:31: mouth in [place] /zeax 34 the Medical (ICAPS morning. Branch AREDS2 ORAL) omega-3/dha 2022-0 Yes 1{capsu Take 1 U nivers /epa/fish 6-05 le} capsule by ity of oil 16:31: mouth in [place] (OMEGA-3 34 the Medical FISH OIL morning. Branch ORAL) Cholecalcif 2022-0 Yes 2000U Take 1 [facility], 6-05 capsule by it[facility] of Vitamin D3, 16:31: mouth in [place] 50 mcg 34 the Medical (2,000 morning. Branch unit) capsule leflunomide 2023-0 Yes 20mg Take 1 [facility] 20 mg 6-05 tablet by ity of tablet 16:31: mouth in [place] 34 the Medical morning. Branch ascorbic 3-0 Yes 500mg Take 1 [facility] acid, 6-05 tablet by ity of vitamin C, 16:31: mouth in [place] 500 mg 34 the Medical tablet morning. Branch MAGNESIUM 2022-0 Yes Take by Unive rs OXIDE 400 6-05 mouth ity of mg 16:31: daily. [place] magnesium 34 Medical Tab Branch VITAMIN A 2022-0 Yes 1000mg Take 1,000 [facility] ORAL 6-05 mg by ity of 16:31: mouth in [place] 34 the Medical morning. Branch vit C/vit E 2022-0 Yes 1{tbl} Take 1 [facility] ac/selenium 6-05 tablet by ity of /ginkgo 16:31: mouth in [place] (MEMORY 34 the Medical COMPLEX morning. Branch ORAL) cyanocobala 2022-0 Yes 1{tbl} Take 1 [facility] min, 6-05 tablet by ity of vitamin 16:31: mouth in [place] B-12, 34 the Medical (VITAMIN morning. Branch B-12 ORAL) vitamin E 2022-0 Yes 1{tbl} Take 1 [facility] acetate 6-05 tablet by ity of (VITAMIN E 16:31: mouth in [place] as ORAL) 34 the Medical morning. Branch vit 3-0 Yes 1{capsu Take 1 [facility] C/E/zinc 6-05 le} capsule by ity o f ox/howard/lut 16:31: mouth in [place] /zeax 34 the Medical (ICAPS morning. Branch AREDS2 ORAL) omega-3/dha 2022-0 Yes 1{capsu Take 1 U nivers /epa/fish 6-05 le} capsule by ity of oil 16:31: mouth in [place] (OMEGA-3 34 the Medical FISH OIL morning. Branch ORAL) Cholecalcif 2023-0 Yes 2000U Take 1 [facility], 6-05 capsule by ity of Vitamin D3, 16:31: mouth in [place] 50 mcg 34 the Medical (2,000 morning. Branch unit) capsule leflunomide 3-0 Yes 20mg Take 1 [facility] 20 mg 6-05 tablet by ity of tablet 16:31: mouth in [place] 34 the Medical morning. Branch ascorbic 2022-0 Yes 500mg Take 1 [facility] acid, 6-05 tablet by ity of vitamin C, 16:31: mouth in [place] 500 mg 34 the Medical tablet morning. Branch MAGNESIUM 2022-0 Yes Take by Unive rs OXIDE 400 6-05 mouth ity of mg 16:31: daily. [place] magnesium 34 Medical Tab Branch VITAMIN A 2022-0 Yes 1000mg Take 1,000 [facility] ORAL 6-05 mg by ity of 16:31: mouth in [place] 34 the Medical morning. Branch vit C/vit E 2022-0 Yes 1{tbl} Take 1 [facility] ac/selenium 6-05 tablet by ity of /ginkgo 16:31: mouth in [place] (MEMORY 34 the Medical COMPLEX morning. Branch ORAL) cyanocobala 2022-0 Yes 1{tbl} Take 1 [facility] min, 6-05 tablet by ity of vitamin 16:31: mouth in [place] B-12, 34 the Medical (VITAMIN morning. Branch B-12 ORAL) vitamin E 2022-0 Yes 1{tbl} Take 1 [facility] acetate 6-05 tablet by ity of (VITAMIN E 16:31: mouth in [place] as ORAL) 34 the Medical morning. Branch vit 2022-0 Yes 1{capsu Take 1 [facility] C/E/zinc 6-05 le} capsule by ity o f ox/howard/lut 16:31: mouth in [place] /zeax 34 the Medical (ICAPS morning. Branch AREDS2 ORAL) omega-3/dha 2022-0 Yes 1{capsu Take 1 [facility] nivers /epa/fish 6-05 le} capsule by ity of oil 16:31: mouth in [place] (OMEGA-3 34 the Medical FISH OIL morning. Branch ORAL) Cholecalcif 3-0 Yes 2000U Take 1 [facility], 6-05 capsule by ity of Vitamin D3, 16:31: mouth in [place] 50 mcg 34 the Medical (2,000 morning. Branch unit) capsule leflunomide 2022-0 Yes 20mg Take 1 [facility] 20 mg 6-05 tablet by ity of tablet 16:31: mouth in [place] 34 the Medical morning. Branch ascorbic 2023-0 Yes 500mg Take 1 [facility] acid, 6-05 tablet by ity of vitamin C, 16:31: mouth in [place] 500 mg 34 the Medical tablet morning. Branch MAGNESIUM 2022-0 Yes Take by Un[facility] rs OXIDE 400 6-05 mouth ity of mg 16:31: daily. [place] magnesium 34 Medical Tab Branch VITAMIN A 2022-0 Yes 1000mg Take 1,000 [facility] ORAL 6-05 mg by ity of 16:31: mouth in [place] 34 the Medical morning. Branch vit C/vit E 2022-0 Yes 1{tbl} Take 1 [facility] ac/selenium 6-05 tablet by ity of /ginkgo 16:31: mouth in [place] (MEMORY 34 the Medical COMPLEX morning. Branch ORAL) cyanocobala 2022-0 Yes 1{tbl} Take 1 [facility] min, 6-05 tablet by ity of vitamin 16:31: mouth in [place] B-12, 34 the Medical (VITAMIN morning. Branch B-12 ORAL) vitamin E 2022-0 Yes 1{tbl} Take 1 [facility] acetate 6-05 tablet by ity of (VITAMIN E 16:31: mouth in [place] as ORAL) 34 the Medical morning. Branch vit 2022-0 Yes 1{capsu Take 1 [facility] C/E/zinc 6-05 le} capsule by ity o f ox/howard/lut 16:31: mouth in [place] /zeax 34 the Medical (ICAPS morning. Branch AREDS2 ORAL) omega-3/dha 2022-0 Yes 1{capsu Take 1 [facility] n[facility] /epa/fish 6-05 le} capsule by ity of oil 16:31: mouth in [place] (OMEGA-3 34 the Medical FISH OIL morning. Branch ORAL) Cholecalcif 2023-0 Yes 2000U Take 1 [facility], 6-05 capsule by ity of Vitamin D3, 16:31: mouth in [place] 50 mcg 34 the Medical (2,000 morning. Branch unit) capsule leflunomide 3-0 Yes 20mg Take 1 [facility] 20 mg 6-05 tablet by ity of tablet 16:31: mouth in [place] 34 the Medical morning. Branch ascorbic 2023-0 Yes 500mg Take 1 [facility] acid, 6-05 tablet by ity of vitamin C, 16:31: mouth in [place] 500 mg 34 the Medical tablet morning. Branch MAGNESIUM 0 Yes Take by Unive rs OXIDE 400 6-05 mouth ity of mg 16:31: daily. [place] magnesium 34 Medical Tab Branch VITAMIN A 2022-0 Yes 1000mg Take 1,000 [facility] ORAL 6-05 mg by ity of 16:31: mouth in [place] 34 the Medical morning. Branch vit C/vit E 2022-0 Yes 1{tbl} Take 1 [facility] ac/selenium 6-05 tablet by ity of /ginkgo 16:31: mouth in [place] (MEMORY 34 the Medical COMPLEX morning. Branch ORAL) cyanocobala 2022-0 Yes 1{tbl} Take 1 [facility] min, 6-05 tablet by ity of vitamin 16:31: mouth in [place] B-12, 34 the Medical (VITAMIN morning. Branch B-12 ORAL) vitamin E 2022-0 Yes 1{tbl} Take 1 [facility] acetate 6-05 tablet by ity of (VITAMIN E 16:31: mouth in [place] as ORAL) 34 the Medical morning. Branch vit 2022-0 Yes 1{capsu Take 1 [facility] C/E/zinc 6-05 le} capsule by ity o f ox/howard/lut 16:31: mouth in [place] /zeax 34 the Medical (ICAPS morning. Branch AREDS2 ORAL) omega-3/dha 2022-0 Yes 1{capsu Take 1 U nivers /epa/fish 6-05 le} capsule by ity of oil 16:31: mouth in [place] (OMEGA-3 34 the Medical FISH OIL morning. Branch ORAL) Cholecalcif 2023-0 Yes 2000U Take 1 [facility], 6-05 capsule by ity of Vitamin D3, 16:31: mouth in [place] 50 mcg 34 the Medical (2,000 morning. Branch unit) capsule Cholecalcif 2023-0 Yes 2000U Take 1 [facility], 6-05 capsule by ity of Vitamin D3, 16:31: mouth in [place] 50 mcg 34 the Medical (2,000 morning. Branch unit) capsule leflunomide 2022-0 Yes 20mg Take 1 [facility] 20 mg 6-05 tablet by ity of tablet 16:31: mouth in [place] 34 the Medical morning. Branch ascorbic 2022-0 Yes 500mg Take 1 [facility] acid, 6-05 tablet by ity of vitamin C, 16:31: mouth in [place] 500 mg 34 the Medical tablet morning. Branch MAGNESIUM 2022-0 Yes Take by Unive rs OXIDE 400 6-05 mouth ity of mg 16:31: daily. [place] magnesium 34 Medical Tab Branch VITAMIN A 2022-0 Yes 1000mg Take 1,000 [facility] ORAL 6-05 mg by ity of 16:31: mouth in [place] 34 the Medical morning. Branch vit C/vit E 2022-0 Yes 1{tbl} Take 1 [facility] ac/selenium 6-05 tablet by ity of /ginkgo 16:31: mouth in [place] (MEMORY 34 the Medical COMPLEX morning. Branch ORAL) cyanocobala 2022-0 Yes 1{tbl} Take 1 [facility] min, 6-05 tablet by ity of vitamin 16:31: mouth in [place] B-12, 34 the Medical (VITAMIN morning. Branch B-12 ORAL) vitamin E 2022-0 Yes 1{tbl} Take 1 [facility] acetate 6-05 tablet by ity of (VITAMIN E 16:31: mouth in [place] as ORAL) 34 the Medical morning. Branch vit 2022-0 Yes 1{capsu Take 1 [facility] C/E/zinc 6-05 le} capsule by ity o f ox/howard/lut 16:31: mouth in [place] /zeax 34 the Medical (ICAPS morning. Branch AREDS2 ORAL) omega-3/dha 2022-0 Yes 1{capsu Take 1 [facility] n[facility] /epa/fish 6-05 le} capsule by ity of oil 16:31: mouth in [place] (OMEGA-3 34 the Medical FISH OIL morning. Branch ORAL) Cholecalcif 3-0 Yes 2000U Take 1 [facility], 6-05 capsule by ity of Vitamin D3, 16:31: mouth in [place] 50 mcg 34 the Medical (2,000 morning. Branch unit) capsule leflunomide 3-0 Yes 20mg Take 1 [facility] 20 mg 6-05 tablet by ity of tablet 16:31: mouth in [place] 34 the Medical morning. Branch ascorbic 3-0 Yes 500mg Take 1 [facility] acid, 6-05 tablet by ity of vitamin C, 16:31: mouth in [place] 500 mg 34 the Medical tablet morning. Branch MAGNESIUM 2022-0 Yes Take by Unive rs OXIDE 400 6-05 mouth ity of mg 16:31: daily. [place] magnesium 34 Medical Tab Branch VITAMIN A 2022-0 Yes 1000mg Take 1,000 [facility] ORAL 6-05 mg by ity of 16:31: mouth in [place] 34 the Medical morning. Branch vit C/vit E 2022-0 Yes 1{tbl} Take 1 [facility] ac/selenium 6-05 tablet by ity of /ginkgo 16:31: mouth in [place] (MEMORY 34 the Medical COMPLEX morning. Branch ORAL) cyanocobala 2022-0 Yes 1{tbl} Take 1 [facility] min, 6-05 tablet by ity of vitamin 16:31: mouth in [place] B-12, 34 the Medical (VITAMIN morning. Branch B-12 ORAL) vitamin E 2022-0 Yes 1{tbl} Take 1 [facility] acetate 6-05 tablet by ity of (VITAMIN E 16:31: mouth in [place] as ORAL) 34 the Medical morning. Branch vit 2022-0 Yes 1{capsu Take 1 [facility] C/E/zinc 6-05 le} capsule by ity o f ox/howard/lut 16:31: mouth in [place] /zeax 34 the Medical (ICAPS morning. Branch AREDS2 ORAL) omega-3/dha 2022-0 Yes 1{capsu Take 1 U nivers /epa/fish 6-05 le} capsule by ity of oil 16:31: mouth in [place] (OMEGA-3 34 the Medical FISH OIL morning. Branch ORAL) Cholecalcif 2022-0 Yes 2000U Take 1 [facility], 6-05 capsule by ity of Vitamin D3, 16:31: mouth in [place] 50 mcg 34 the Medical (2,000 morning. Branch unit) capsule leflunomide 2022-0 Yes 20mg Take 1 [facility] 20 mg 6-05 tablet by ity of tablet 16:31: mouth in [place] 34 the Medical morning. Branch ascorbic 2022-0 Yes 500mg Take 1 [facility] acid, 6-05 tablet by ity of vitamin C, 16:31: mouth in [place] 500 mg 34 the Medical tablet morning. Branch MAGNESIUM 2022-0 Yes Take by Unive rs OXIDE 400 6-05 mouth ity of mg 16:31: daily. [place] magnesium 34 Medical Tab Branch VITAMIN A 2022-0 Yes 1000mg Take 1,000 [facility] ORAL 6-05 mg by ity of 16:31: mouth in [place] 34 the Medical morning. Branch vit C/vit E 2023-0 Yes 1{tbl} Take 1 [facility] ac/selenium 6-05 tablet by ity of /ginkgo 16:31: mouth in [place] (MEMORY 34 the Medical COMPLEX morning. Branch ORAL) cyanocobala 3-0 Yes 1{tbl} Take 1 [facility] min, 6-05 tablet by ity of vitamin 16:31: mouth in [place] B-12, 34 the Medical (VITAMIN morning. Branch B-12 ORAL) vitamin E 2022-0 Yes 1{tbl} Take 1 [facility] acetate 6-05 tablet by ity of (VITAMIN E 16:31: mouth in [place] as ORAL) 34 the Medical morning. Branch vit 3-0 Yes 1{capsu Take 1 [facility] C/E/zinc 6-05 le} capsule by ity o f ox/howard/lut 16:31: mouth in [place] /zeax 34 the Medical (ICAPS morning. Branch AREDS2 ORAL) omega-3/dha 2022-0 Yes 1{capsu Take 1 U nivers /epa/fish 6-05 le} capsule by ity of oil 16:31: mouth in [place] (OMEGA-3 34 the Medical FISH OIL morning. Branch ORAL) Cholecalcif 3-0 Yes 2000U Take 1 [facility], 6-05 capsule by ity of Vitamin D3, 16:31: mouth in [place] 50 mcg 34 the Medical (2,000 morning. Branch unit) capsule leflunomide 3-0 Yes 20mg Take 1 [facility] 20 mg 6-05 tablet by ity of tablet 16:31: mouth in [place] 34 the Medical morning. Branch ascorbic 3-0 Yes 500mg Take 1 [facility] s acid, 6-05 tablet by ity of vitamin C, 16:31: mouth in [place] 500 mg 34 the Medical tablet morning. Branch MAGNESIUM 2022-0 Yes Take by Unive rs OXIDE 400 6-05 mouth ity of mg 16:31: daily. [place] magnesium 34 Medical Tab Branch VITAMIN A 2023-0 Yes 1000mg Take 1,000 [facility] ORAL 6-05 mg by ity of 16:31: mouth in [place] 34 the Medical morning. Branch vit C/vit E 2022-0 Yes 1{tbl} Take 1 [facility] ac/selenium 6-05 tablet by ity of /ginkgo 16:31: mouth in [place] (MEMORY 34 the Medical COMPLEX morning. Branch ORAL) cyanocobala 2022-0 Yes 1{tbl} Take 1 [facility] min, 6-05 tablet by ity of vitamin 16:31: mouth in [place] B-12, 34 the Medical (VITAMIN morning. Branch B-12 ORAL) vitamin E 2022-0 Yes 1{tbl} Take 1 [facility] acetate 6-05 tablet by ity of (VITAMIN E 16:31: mouth in [place] as ORAL) 34 the Medical morning. Branch vit 2022-0 Yes 1{capsu Take 1 [facility] C/E/zinc 6-05 le} capsule by ity o f ox/howard/lut 16:31: mouth in [place] /zeax 34 the Medical (ICAPS morning. Branch AREDS2 ORAL) omega-3/dha 2022-0 Yes 1{capsu Take 1 U nivers /epa/fish 6-05 le} capsule by ity of oil 16:31: mouth in [place] (OMEGA-3 34 the Medical FISH OIL morning. Branch ORAL) Cholecalcif 2022-0 Yes 2000U Take 1 [facility], 6-05 capsule by ity of Vitamin D3, 16:31: mouth in [place] 50 mcg 34 the Medical (2,000 morning. Branch unit) capsule leflunomide 2022-0 Yes 20mg Take 1 [facility] 20 mg 6-05 tablet by ity of tablet 16:31: mouth in [place] 34 the Medical morning. Branch ascorbic 2022-0 Yes 500mg Take 1 Univer s acid, 6-05 tablet by ity of vitamin C, 16:31: mouth in [place] 500 mg 34 the Medical tablet morning. Branch MAGNESIUM 2022-0 Yes Take by Unive rs OXIDE 400 6-05 mouth ity of mg 16:31: daily. [place] magnesium 34 Medical Tab Branch VITAMIN A 2022-0 Yes 1000mg Take 1,000 [facility] ORAL 6-05 mg by ity of 16:31: mouth in [place] 34 the Medical morning. Branch cyanocobala 2022-0 Yes 1{tbl} Take 1 [facility] min, 6-05 tablet by ity of vitamin 16:31: mouth in [place] B-12, 34 the Medical (VITAMIN morning. Branch B-12 ORAL) vitamin E 2022-0 Yes 1{tbl} Take 1 [facility] acetate 6-05 tablet by ity of (VITAMIN E 16:31: mouth in [place] as ORAL) 34 the Medical morning. Branch vit 2022-0 Yes 1{capsu Take 1 [facility] C/E/zinc 6-05 le} capsule by ity o f ox/howard/lut 16:31: mouth in [place] /zeax 34 the Medical (ICAPS morning. Branch AREDS2 ORAL) omega-3/dha 2022-0 Yes 1{capsu Take 1 U nivers /epa/fish 6-05 le} capsule by ity of oil 16:31: mouth in [place] (OMEGA-3 34 the Medical FISH OIL morning. Branch ORAL) Cholecalcif 2022-0 Yes 2000U Take 1 [facility], 6-05 capsule by ity of Vitamin D3, 16:31: mouth in [place] 50 mcg 34 the Medical (2,000 morning. Branch unit) capsule leflunomide 2022-0 Yes 20mg Take 1 [facility] 20 mg 6-05 tablet by ity of tablet 16:31: mouth in [place] 34 the Medical morning. Branch ascorbic 2022-0 Yes 500mg Take 1 Univer s acid, 6-05 tablet by ity of vitamin C, 16:31: mouth in [facility] as 500 mg 34 the Medical tablet morning. Branch MAGNESIUM 2022-0 Yes Take by Unive rs OXIDE 400 6-05 mouth ity of mg 16:31: daily. [place] magnesium 34 Medical Tab Branch VITAMIN A 3-0 Yes 1000mg Take 1,000 [facility] ORAL 6-05 mg by ity of 16:31: mouth in [place] 34 the Medical morning. Branch cyanocobala 2022-0 Yes 1{tbl} Take 1 Un sar[facility] min, 6-05 tablet by ity of vitamin 16:31: mouth in [place] B-12, 34 the Medical (VITAMIN morning. Branch B-12 ORAL) vitamin E 2022-0 Yes 1{tbl} Take 1 [facility] ers acetate 6-05 tablet by ity of (VITAMIN E 16:31: mouth in [place] as ORAL) 34 the Medical morning. Branch vit 2022-0 Yes 1{capsu Take 1 [facility] C/E/zinc 6-05 le} capsule by ity o f ox/howard/lut 16:31: mouth in [place] /zeax 34 the Medical (ICAPS morning. Branch AREDS2 ORAL) omega-3/dha 2022-0 Yes 1{capsu Take 1 U nivers /epa/fish 6-05 le} capsule by ity of oil 16:31: mouth in [place] (OMEGA-3 34 the Medical FISH OIL morning. Branch ORAL) Cholecalcif 2022-0 Yes 2000U Take 1 [facility], 6-05 capsule by ity of Vitamin D3, 16:31: mouth in [place] 50 mcg 34 the Medical (2,000 morning. Branch unit) capsule leflunomide 2022-0 Yes 20mg Take 1 [facility] 20 mg 6-05 tablet by ity of tablet 16:31: mouth in [place] 34 the Medical morning. Branch ascorbic 2022-0 Yes 500mg Take 1 Un[facility] s acid, 6-05 tablet by ity of vitamin C, 16:31: mouth in [place] 500 mg 34 the Medical tablet morning. Branch MAGNESIUM 2022-0 Yes Take by Unive rs OXIDE 400 6-05 mouth ity of mg 16:31: daily. [place] magnesium 34 Medical Tab Branch VITAMIN A 2022-0 Yes 1000mg Take 1,000 [facility] ORAL 6-05 mg by ity of 16:31: mouth in [place] 34 the Medical morning. Branch cyanocobala 2022-0 Yes 1{tbl} Take 1 [facility] sar[facility] min, 6-05 tablet by ity of vitamin 16:31: mouth in [place] B-12, 34 the Medical (VITAMIN morning. Branch B-12 ORAL) vitamin E 2022-0 Yes 1{tbl} Take 1 [facility] ers acetate 6-05 tablet by ity of (VITAMIN E 16:31: mouth in [place] as ORAL) 34 the Medical morning. Branch vit 2022-0 Yes 1{capsu Take 1 [facility] C/E/zinc 6-05 le} capsule by ity o f ox/howard/lut 16:31: mouth in [place] /zeax 34 the Medical (ICAPS morning. Branch AREDS2 ORAL) omega-3/dha 2022-0 Yes 1{capsu Take 1 U nivers /epa/fish 6-05 le} capsule by ity of oil 16:31: mouth in [place] (OMEGA-3 34 the Medical FISH OIL morning. Branch ORAL) Cholecalcif 2022-0 Yes 2000U Take 1 [facility], 6-05 capsule by ity of Vitamin D3, 16:31: mouth in [place] 50 mcg 34 the Medical (2,000 morning. Branch unit) capsule leflunomide 2022-0 Yes 20mg Take 1 [facility] ers 20 mg 6-05 tablet by ity of tablet 16:31: mouth in [place] 34 the Medical morning. Branch ascorbic 2022-0 Yes 500mg Take 1 Univer s acid, 6-05 tablet by ity of vitamin C, 16:31: mouth in [place] 500 mg 34 the Medical tablet morning. Branch MAGNESIUM 0 Yes Take by Unive rs OXIDE 400 6-05 mouth ity of mg 16:31: daily. [place] magnesium 34 Medical Tab Branch VITAMIN A 2022-0 Yes 1000mg Take 1,000 [facility] ORAL 6-05 mg by ity of 16:31: mouth in [place] 34 the Medical morning. Branch cyanocobala 0 Yes 1{tbl} Take 1 [facility] sarah min, 6-05 tablet by ity of vitamin 16:31: mouth in [place] B-12, 34 the Medical (VITAMIN morning. Branch B-12 ORAL) vitamin E 2022-0 Yes 1{tbl} Take 1 [facility] ers acetate 6-05 tablet by ity of (VITAMIN E 16:31: mouth in [place] as ORAL) 34 the Medical morning. Branch vit 2022-0 Yes 1{capsu Take 1 [facility] C/E/zinc 6-05 le} capsule by ity o f ox/howard/lut 16:31: mouth in [place] /zeax 34 the Medical (ICAPS morning. Branch AREDS2 ORAL) omega-3/dha 2022-0 Yes 1{capsu Take 1 U nivers /epa/fish 6-05 le} capsule by ity of oil 16:31: mouth in [place] (OMEGA-3 34 the Medical FISH OIL morning. Branch ORAL) tiZANidine 2022-0 Yes [id number] 2mg Take 1 U nivers 2 mg 6-05 capsule by ity of capsule 00:00: mouth in [address] morning [place] and 1 capsule at noon and 1 capsule in the evening. tiZANidine 2023-0 Yes [id number] 2mg Take 1 U nivers 2 mg 6-05 capsule by ity of capsule 00:00: mouth in [address] morning [place] and 1 capsule at noon and 1 capsule in the evening. tiZANidine 2023-0 Yes [id number] 2mg Take 1 U nivers 2 mg 6-05 capsule by ity of capsule 00:00: mouth in [address] morning [place] and 1 capsule at noon and 1 capsule in the evening. tiZANidine 2023-0 Yes [id number] 2mg Take 1 U nivers 2 mg 6-05 capsule by ity of capsule 00:00: mouth in [address] morning [place] and 1 capsule at noon and 1 capsule in the evening. tiZANidine 2023-0 Yes [id number] 2mg Take 1 U nivers 2 mg 6-05 capsule by ity of capsule 00:00: mouth in [address] and 1 capsule at noon and 1 capsule in the evening. tiZANidine 2023-0 Yes [id number] 2mg Take 1 U nivers 2 mg 6-05 capsule by ity of capsule 00:00: mouth in [address] and 1 capsule at noon and 1 capsule in the evening. tiZANidine 2023-0 Yes [id number] 2mg Take 1 U nivers 2 mg 6-05 capsule by ity of capsule 00:00: mouth in [address] morning [place] and 1 capsule at noon and 1 capsule in the evening. tiZANidine 2023-0 Yes [id number] 2mg Take 1 U nivers 2 mg 6-05 capsule by ity of capsule 00:00: mouth in [address] morning [place] and 1 capsule at noon and 1 capsule in the evening. tiZANidine 2023-0 Yes [id number] 2mg Take 1 U nivers 2 mg 6-05 capsule by ity of capsule 00:00: mouth in [address] morning [place] and 1 capsule at noon and 1 capsule in the evening. tiZANidine 2023-0 Yes [id number] 2mg Take 1 U nivers 2 mg 6-05 capsule by ity of capsule 00:00: mouth in [address] morning [place] and 1 capsule at noon and 1 capsule in the evening. tiZANidine 2023-0 Yes [id number] 2mg Take 1 U nivers 2 mg 6-05 capsule by ity of capsule 00:00: mouth in [address] morning [place] and 1 capsule at noon and 1 capsule in the evening. tiZANidine 2023-0 Yes [id number] 2mg Take 1 U nivers 2 mg 6-05 capsule by ity of capsule 00:00: mouth in [address] morning [place] and 1 capsule at noon and 1 capsule in the evening. tiZANidine 2023-0 Yes [id number] 2mg Take 1 U nivers 2 mg 6-05 capsule by ity of capsule 00:00: mouth in [address] and 1 capsule at noon and 1 capsule in the evening. tiZANidine 2023-0 Yes [id number] 2mg Take 1 U nivers 2 mg 6-05 capsule by ity of capsule 00:00: mouth in [address] and 1 capsule at noon and 1 capsule in the evening. tiZANidine 2023-0 Yes [id number] 2mg Take 1 U nivers 2 mg 6-05 capsule by ity of capsule 00:00: mouth in [address] and 1 capsule at noon and 1 capsule in the evening. tiZANidine 2023-0 Yes [id number] 2mg Take 1 U nivers 2 mg 6-05 capsule by ity of capsule 00:00: mouth in [address] and 1 capsule at noon and 1 capsule in the evening. tiZANidine 2023-0 Yes [id number] 2mg Take 1 U nivers 2 mg 6-05 capsule by ity of capsule 00:00: mouth in [address] morning [place] and 1 capsule at noon and 1 capsule in the evening. tiZANidine 2023-0 Yes [id number] 2mg Take 1 U nivers 2 mg 6-05 capsule by ity of capsule 00:00: mouth in [address] morning [place] and 1 capsule at noon and 1 capsule in the evening. tiZANidine 2023-0 Yes [id number] 2mg Take 1 U nivers 2 mg 6-05 capsule by ity of capsule 00:00: mouth in [address] morning [place] and 1 capsule at noon and 1 capsule in the evening. tiZANidine 2023-0 Yes [id number] 2mg Take 1 U nivers 2 mg 6-05 capsule by ity of capsule 00:00: mouth in [address] morning [place] and 1 capsule at noon and 1 capsule in the evening. tiZANidine 2023-0 Yes [id number] 2mg Take 1 U nivers 2 mg 6-05 capsule by ity of capsule 00:00: mouth in [address] and 1 capsule at noon and 1 capsule in the evening. tiZANidine 2023-0 Yes [id number] 2mg Take 1 U nivers 2 mg 6-05 capsule by ity of capsule 00:00: mouth in [address] and 1 capsule at noon and 1 capsule in the evening. tiZANidine 2023-0 Yes [id number] 2mg Take 1 U nivers 2 mg 6-05 capsule by ity of capsule 00:00: mouth in [address] and 1 capsule at noon and 1 capsule in the evening. tiZANidine 2023-0 Yes [id number] 2mg Take 1 U nivers 2 mg 6-05 capsule by ity of capsule 00:00: mouth in [address] and 1 capsule at noon and 1 capsule in the evening. tiZANidine 2023-0 Yes [id number] 2mg Take 1 U nivers 2 mg 6-05 capsule by ity of capsule 00:00: mouth in [address] and 1 capsule at noon and 1 capsule in the evening. tiZANidine 2023-0 Yes [id number] 2mg Take 1 U nivers 2 mg 6-05 capsule by ity of capsule 00:00: mouth in [address] and 1 capsule at noon and 1 capsule in the evening. tiZANidine 2023-0 Yes [id number] 2mg Take 1 U nivers 2 mg 6-05 capsule by ity of capsule 00:00: mouth in [address] and 1 capsule at noon and 1 capsule in the evening. tiZANidine 2023-0 Yes [id number] 2mg Take 1 U nivers 2 mg 6-05 capsule by ity of capsule 00:00: mouth in [place] 00 the Medical morning Branch and 1 capsule at noon and 1 capsule in the evening. tiZANidine 2023-0 Yes [id number] 2mg Take 1 U nivers 2 mg 6-05 capsule by ity of capsule 00:00: mouth in [place] 00 the [facility] morning Branch and 1 capsule at noon and 1 capsule in the evening. tiZANidine 2023-0 Yes [id number] 2mg Take 1 U nivers 2 mg 6-05 capsule by ity of capsule 00:00: mouth in [place] 00 the [facility] morning [place] and 1 capsule at noon and 1 capsule in the evening. tiZANidine 2023-0 Yes [id number] 2mg Take 1 U nivers 2 mg 6-05 capsule by ity of capsule 00:00: mouth in [place] 00 the [facility] morning [place] and 1 capsule at noon and 1 capsule in the evening. tiZANidine 2023-0 Yes [id number] 2mg Take 1 U nivers 2 mg 6-05 capsule by ity of capsule 00:00: mouth in [address] and 1 capsule at noon and 1 capsule in the evening. tiZANidine 2023-0 2023- No [id number] 2mg Take 1 [facility] 2 mg 6-05 11-27 capsule by ity of capsule 00:00: 00:00 mouth in [place] 00 :00 the [facility] and 1 capsule at noon and 1 capsule in the evening. tiZANidine 2023-0 2023- No [id number] 2mg Take 1 [facility] 2 mg 6-05 11-27 capsule by ity of capsule 00:00: 00:00 mouth in [place] 00 :00 the [facility] and 1 capsule at noon and 1 capsule in the evening. empaglifloz 2023-0 Yes [id number] 10mg Take 1 [facility]-26 tablet by [facility] of (JARDIANCE) 00:00: mouth in [place] 10 mg 00 the Medical morning. Branch empaglifloz 2023-0 Yes [id number] 10mg Take 1 [facility]-26 tablet by [facility] of ([place]) 00:00: mouth in [place] 10 mg 00 the Medical morning. Branch empaglifloz 2023-0 Yes [id number] 10mg Take 1 [facility] 5-26 tablet by [facility] of ([place]IANCE) 00:00: mouth in [place] 10 mg 00 the Medical morning. Branch empaglifloz 2023-0 Yes [id number] 10mg Take 1 [facility] in 5-26 tablet by [facility] of ([place]) 00:00: mouth in [place] 10 mg 00 the Medical morning. Branch empaglifloz 2023-0 Yes [id number] 10mg Take 1 [facility] in 5-26 tablet by [facility] of ([place]) 00:00: mouth in [place] 10 mg 00 the Medical morning. Branch empaglifloz 2023-0 Yes [id number] 10mg Take 1 [facility] in 5-26 tablet by [facility] of ([place]) 00:00: mouth in [place] 10 mg 00 the Medical morning. Branch empaglifloz 2023-0 2023- No [id number] 10mg Take 1 [facility] in 5-26 06-08 tablet by ity of (JARDIANCE) 00:00: 00:00 mouth in [place] 10 mg 00 :00 the Medical morning. Branch metoprolol 2023-0 Yes 100mg Take 1 [facility] succinate 5-24 tablet by it[facility] o [place] XL 100 mg 00:00: [place] 24 [place] 00 the Medical tablet morning Branch and 1 tablet in the evening. metoprolol 2023-0 Yes 100mg Take 1 [facility] succinate 5-24 tablet by [facility] o f XL 100 mg 00:00: mouth [place] 24 [place] 00 the Medical tablet morning Branch and 1 tablet in the evening. metoprolol 2023-0 Yes 100mg Take 1 [facility] succinate 5-24 tablet by [facility] o f XL 100 mg 00:00: mouth [place] 24 [place] 00 the Medical tablet morning Branch and 1 tablet in the evening. metoprolol 2023-0 Yes 100mg Take 1 [facility] succinate 5-24 tablet by [facility] o f XL 100 mg 00:00: mouth [place] 24 [place] 00 the Medical tablet morning Branch and 1 tablet in the evening. metoprolol 2023-0 Yes 100mg Take 1 [facility] succinate 5-24 tablet by [facility] o f XL 100 mg 00:00: mouth [place] 24 [place] 00 the Medical tablet morning Branch and 1 tablet in the evening. metoprolol 2023-0 Yes 100mg Take 1 [facility] succinate 5-24 tablet by it[facility] o f XL 100 mg 00:00: mouth [place] 24 hr 00 the Medical tablet morning Branch and 1 tablet in the evening. metoprolol 2023-0 Yes 100mg Take 1 [facility] succinate 5-24 tablet by it[facility] o f XL 100 mg 00:00: mouth [place] 24 [place] 00 the Medical tablet morning Branch and 1 tablet in the evening. metoprolol 2023-0 Yes 100mg Take 1 [facility] succinate 5-24 tablet by it[facility] o f XL 100 mg 00:00: mouth [place] 24 [place] 00 the Medical tablet morning Branch and 1 tablet in the evening. metoprolol 2023-0 Yes 100mg Take 1 [facility] succinate 5-24 tablet by it[facility] o f XL 100 mg 00:00: mouth [place] 24 [place] 00 the Medical tablet morning Branch and 1 tablet in the evening. metoprolol 2023-0 Yes 100mg Take 1 [facility] succinate 5-24 tablet by [facility] o f XL 100 mg 00:00: mouth [place] 24 [place] 00 the Medical tablet morning Branch and 1 tablet in the evening. metoprolol 2023-0 Yes 100mg Take 1 [facility] succinate 5-24 tablet by it[facility] o f XL 100 mg 00:00: mouth [place] 24 [place] 00 the Medical tablet morning Branch and 1 tablet in the evening. metoprolol 2023-0 Yes 100mg Take 1 [facility] succinate 5-24 tablet by it[facility] o f XL 100 mg 00:00: mouth [place] 24 [place] 00 the Medical tablet morning Branch and 1 tablet in the evening. metoprolol 2023-0 Yes 100mg Take 1 [facility] succinate 5-24 tablet by [facility] o f XL 100 mg 00:00: mouth [place] 24 [place] 00 the Medical tablet morning Branch and 1 tablet in the evening. metoprolol 2023-0 Yes 100mg Take 1 [facility] succinate 5-24 tablet by [facility] o f XL 100 mg 00:00: mouth [place] 24 [place] 00 the Medical tablet morning Branch and 1 tablet in the evening. metoprolol 2023-0 Yes 100mg Take 1 [facility] succinate 5-24 tablet by it[facility] o f XL 100 mg 00:00: mouth [place] 24 [place] 00 the Medical tablet morning Branch and 1 tablet in the evening. metoprolol 2023-0 Yes 100mg Take 1 [facility] succinate 5-24 tablet by it[facility] o f XL 100 mg 00:00: mouth [place] 24 hr 00 the Medical tablet morning Branch and 1 tablet in the evening. metoprolol 2023-0 Yes 100mg Take 1 [facility] succinate 5-24 tablet by it[facility] o f XL 100 mg 00:00: mouth [place] 24 hr 00 the Medical tablet morning Branch and 1 tablet in the evening. metoprolol 2023-0 Yes 100mg Take 1 [facility] succinate 5-24 tablet by it[facility] o f XL 100 mg 00:00: mouth [place] 24 hr 00 the Medical tablet morning Branch and 1 tablet in the evening. metoprolol 2023-0 Yes 100mg Take 1 [facility] succinate 5-24 tablet by it[facility] o f XL 100 mg 00:00: mouth [place] 24 hr 00 the Medical tablet morning Branch and 1 tablet in the evening. metoprolol 2023-0 Yes 100mg Take 1 [facility] succinate 5-24 tablet by [facility] o f XL 100 mg 00:00: mouth [place] 24 hr 00 the Medical tablet morning Branch and 1 tablet in the evening. metoprolol 2023-0 Yes 100mg Take 1 [facility] succinate 5-24 tablet by it[facility] o f XL 100 mg 00:00: mouth [place] 24 [place] 00 the Medical tablet morning Branch and 1 tablet in the evening. metoprolol 2023-0 Yes 100mg Take 1 [facility] succinate 5-24 tablet by it[facility] o f XL 100 mg 00:00: mouth [place] 24 hr 00 the Medical tablet morning Branch and 1 tablet in the evening. metoprolol 2023-0 Yes 100mg Take 1 [facility] succinate 5-24 tablet by it[facility] o f XL 100 mg 00:00: mouth [place] 24 hr 00 the Medical tablet morning Branch and 1 tablet in the evening. metoprolol 2023-0 Yes 100mg Take 1 [facility] succinate 5-24 tablet by it[facility] o f XL 100 mg 00:00: mouth [place] 24 hr 00 the Medical tablet morning Branch and 1 tablet in the evening. metoprolol 2023-0 Yes 100mg Take 1 [facility] succinate 5-24 tablet by [facility] o f XL 100 mg 00:00: mouth [place] 24 hr 00 the Medical tablet morning Branch and 1 tablet in the evening. metoprolol 2023-0 Yes 100mg Take 1 [facility] succinate 5-24 tablet by [facility] o f XL 100 mg 00:00: mouth [place] 24 hr 00 the Medical tablet morning Branch and 1 tablet in the evening. metoprolol 2023-0 Yes 100mg Take 1 [facility] succinate 5-24 tablet by [facility] o f XL 100 mg 00:00: mouth [place] 24 hr 00 the Medical tablet morning Branch and 1 tablet in the evening. metoprolol 2023-0 Yes 100mg Take 1 [facility] succinate 5-24 tablet by [facility] o f XL 100 mg 00:00: mouth [place] 24 hr 00 the Medical tablet morning Branch and 1 tablet in the evening. metoprolol 2023-0 Yes 100mg Take 1 [facility] succinate 5-24 tablet by [facility] o f XL 100 mg 00:00: mouth [place] 24 hr 00 the Medical tablet morning Branch and 1 tablet in the evening. metoprolol 2023-0 Yes 100mg Take 1 [facility] succinate 5-24 tablet by [facility] o f XL 100 mg 00:00: mouth [place] 24 hr 00 the Medical tablet morning Branch and 1 tablet in the evening. metoprolol 2023-0 Yes 100mg Take 1 [facility] succinate 5-24 tablet by it[facility] o f XL 100 mg 00:00: mouth [place] 24 hr 00 the Medical tablet morning Branch and 1 tablet in the evening. metoprolol 2023-0 Yes 100mg Take 1 [facility] succinate 5-24 tablet by it[facility] o f XL 100 mg 00:00: mouth [place] 24 hr 00 the Medical tablet morning Branch and 1 tablet in the evening. metoprolol 2023-0 Yes 100mg Take 1 [facility] succinate 5-24 tablet by it[facility] o f XL 100 mg 00:00: mouth [place] 24 hr 00 the Medical tablet morning Branch and 1 tablet in the evening. metoprolol 2023-0 Yes 100mg Take 1 [facility] succinate 5-24 tablet by [facility] o f XL 100 mg 00:00: mouth [place] 24 hr 00 the Medical tablet morning Branch and 1 tablet in the evening. metoprolol 2023-0 Yes 100mg Take 1 [facility] succinate 5-24 tablet by it[facility] o f XL 100 mg 00:00: mouth [place] 24 hr 00 the Medical tablet morning Branch and 1 tablet in the evening. metoprolol 2022-0 Yes 100mg Take 1 [facility] succinate 5-24 tablet by ity o f XL 100 mg 00:00: mouth in [facility] [place] 24 hr 00 the Medical tablet morning Branch and 1 tablet in the evening. VITAMIN A 2022-0 Yes 1000mg Take 1,000 [facility] ORAL 5-19 mg by ity of 09:05: mouth. [address] VITAMIN A 2022-0 Yes 1000mg Take 1,000 [facility] ORAL 5-19 mg by ity of 09:05: mouth. [address] VITAMIN A 2022-0 Yes 1000mg Take 1,000 [facility] ORAL 5-19 mg by ity of 09:05: mouth. [address] VITAMIN A 2022-0 Yes 1000mg Take 1,000 [facility] ORAL 5-19 mg by ity of 09:05: mouth. [address] VITAMIN A 2022-0 Yes 1000mg Take 1,000 [facility] ORAL 5-19 mg by ity of 09:05: mouth. [address] VITAMIN A 2022-0 Yes 1000mg Take 1,000 [facility] ORAL 5-19 mg by ity of 09:05: mouth. [address] Branch XIIDRA 5 % 2022-0 Yes INSTILL 1 [facility] 5-10 DROP INTO ity of 00:00: BOTH EYES 00 TWICE A Medical DAY Branch XIIDRA 5 % 2022-0 Yes INSTILL 1 [facility] 5-10 DROP INTO ity of 00:00: [place] 00 TWICE A Medical DAY Branch XIIDRA 5 % 2022-0 Yes INSTILL 1 [facility] 5-10 DROP INTO ity of 00:00: [place]OTH [place] 00 TWICE A Medical DAY Branch XIIDRA 5 % 2022-0 Yes INSTILL 1 [facility] 5-10 DROP INTO ity of 00:00: [place]OTH [place] 00 TWICE A Medical DAY Branch XIIDRA 5 % 2022-0 Yes INSTILL 1 [facility] 5-10 DROP INTO ity of 00:00: [place]OTH [place] 00 TWICE A Medical DAY Branch XIIDRA 5 % 2022-0 Yes INSTILL 1 [facility] 5-10 DROP INTO ity of 00:00: BOTH EYES [place] 00 TWICE A Medical DAY Branch XIIDRA 5 % 2022-0 Yes INSTILL 1 [facility] 5-10 DROP INTO ity of 00:00: BOTH EYES [place] 00 TWICE A Medical DAY Branch XIIDRA 5 % 2022-0 Yes INSTILL 1 [facility] 5-10 DROP INTO ity of 00:00: BOTH EYES [place] 00 TWICE A Medical DAY Branch XIIDRA 5 % 2022-0 Yes INSTILL 1 [facility] 5-10 DROP INTO ity of 00:00: BOTH EYES [place] 00 TWICE A Medical DAY Branch XIIDRA 5 % 2022-0 Yes INSTILL 1 [facility] 5-10 DROP INTO ity of 00:00: BOTH EYES [place] 00 TWICE A Medical DAY Branch XIIDRA 5 % 2022-0 Yes INSTILL 1 [facility] 5-10 DROP INTO ity of 00:00: BOTH EYES [place] 00 TWICE A Medical DAY Branch XIIDRA 5 % 2022-0 Yes INSTILL 1 [facility] 5-10 DROP INTO ity of 00:00: BOTH EYES [place] 00 TWICE A Medical DAY Branch XIIDRA 5 % 2022-0 Yes INSTILL 1 [facility] 5-10 DROP INTO ity of 00:00: BOTH EYES [place] 00 TWICE A Medical DAY Branch XIIDRA 5 % 2022-0 Yes INSTILL 1 [facility] 5-10 DROP INTO ity of 00:00: BOTH EYES [place] 00 TWICE A Medical DAY Branch XIIDRA 5 % 2022-0 Yes INSTILL 1 [facility] 5-10 DROP INTO ity of 00:00: BOTH EYES [place] 00 TWICE A Medical DAY Branch XIIDRA 5 % 2022-0 Yes INSTILL 1 [facility] 5-10 DROP INTO ity of 00:00: BOTH EYES [place] 00 TWICE A Medical DAY Branch XIIDRA 5 % 2022-0 Yes INSTILL 1 [facility] 5-10 DROP INTO ity of 00:00: BOTH EYES [place] 00 TWICE A Medical DAY Branch XIIDRA 5 % 2022-0 Yes INSTILL 1 [facility] 5-10 DROP INTO ity of 00:00: BOTH EYES [place] 00 TWICE A Medical DAY Branch XIIDRA 5 % 2022-0 Yes INSTILL 1 [facility] 5-10 DROP INTO ity of 00:00: BOTH EYES [place] 00 TWICE A Medical DAY Branch XIIDRA 5 % 2022-0 Yes INSTILL 1 [facility] 5-10 DROP INTO ity of 00:00: BOTH EYES [place] 00 TWICE A Medical DAY Branch XIIDRA 5 % 2022-0 Yes INSTILL 1 [facility] 5-10 DROP INTO ity of 00:00: BOTH EYES [place] 00 TWICE A Medical DAY Branch XIIDRA 5 % 2022-0 Yes INSTILL 1 [facility] 5-10 DROP INTO ity of 00:00: BOTH EYES [place] 00 TWICE A Medical DAY Branch XIIDRA 5 % 2022-0 Yes INSTILL 1 [facility] 5-10 DROP INTO ity of 00:00: BOTH EYES [place] 00 TWICE A Medical DAY Branch XIIDRA 5 % 2022-0 Yes INSTILL 1 [facility] 5-10 DROP INTO ity of 00:00: BOTH EYES [place] 00 TWICE A Medical DAY Branch XIIDRA 5 % 2022-0 Yes INSTILL 1 [facility] 5-10 DROP INTO ity of 00:00: BOTH EYES [place] 00 TWICE A Medical DAY Branch XIIDRA 5 % 2022-0 Yes INSTILL 1 [facility] 5-10 DROP INTO ity of 00:00: BOTH EYES [place] 00 TWICE A Medical DAY Branch XIIDRA 5 % 2022-0 Yes INSTILL 1 [facility] 5-10 DROP INTO ity of 00:00: BOTH EYES [place] 00 TWICE A Medical DAY Branch XIIDRA 5 % 2022-0 Yes INSTILL 1 [facility] 5-10 DROP INTO ity of 00:00: BOTH EYES [place] 00 TWICE A Medical DAY Branch XIIDRA 5 % 2022-0 Yes INSTILL 1 [facility] 5-10 DROP INTO ity of 00:00: BOTH EYES [place] 00 TWICE A Medical DAY Branch XIIDRA 5 % 2022-0 Yes INSTILL 1 [facility] 5-10 DROP INTO ity of 00:00: BOTH EYES [place] 00 TWICE A Medical DAY Branch XIIDRA 5 % 2022-0 Yes INSTILL 1 [facility] 5-10 DROP INTO ity of 00:00: BOTH EYES [place] 00 TWICE A Medical DAY Branch XIIDRA 5 % 2022-0 Yes INSTILL 1 [facility] [place] [facility] 5-10 DROP INTO ity of 00:00: BOTH EYES [place] 00 TWICE A Medical DAY Branch XIIDRA 5 % 2022-0 Yes INSTILL 1 [facility] [place] [facility] 5-10 DROP INTO ity of 00:00: BOTH EYES [place] 00 TWICE A Medical DAY Branch XIIDRA 5 % 2022-0 Yes INSTILL 1 [facility] 5-10 DROP INTO ity of 00:00: BOTH EYES [place] 00 TWICE A Medical DAY Branch XIIDRA 5 % 2022-0 Yes INSTILL 1 [facility] 5-10 DROP INTO ity of 00:00: BOTH EYES [place] 00 TWICE A Medical DAY Branch XIIDRA 5 % 2022-0 Yes INSTILL 1 [facility] 5-10 DROP INTO ity of 00:00: BOTH EYES [place] 00 TWICE A Medical DAY Branch XIIDRA 5 % 2022-0 Yes INSTILL 1 [facility] [place] [facility] 5-10 DROP INTO ity of 00:00: BOTH E[place] 00 TWICE A Medical DAY Branch XIIDRA 5 % 2022-0 Yes INSTILL 1 [facility] [place] [facility] 5-10 DROP INTO ity of 00:00: BOTH E[place] 00 TWICE A Medical DAY Branch XIIDRA 5 % 2022-0 Yes INSTILL 1 [facility] [place] [facility] 5-10 DROP INTO ity of 00:00: BOTH E[place] 00 TWICE A Medical DAY Branch XIIDRA 5 % 2022-0 Yes INSTILL 1 [facility] [place] [facility] 5-10 DROP INTO ity of 00:00: BOTH [place] 00 TWICE A Medical DAY Branch XIIDRA 5 % 2022-0 Yes INSTILL 1 [facility] [place] [facility] 5-10 DROP INTO ity of 00:00: BOTH [place] 00 TWICE A Medical DAY Branch XIIDRA 5 % 2022-0 Yes INSTILL 1 [facility] 5-10 DROP INTO ity of 00:00: BOTH EYES [place] 00 TWICE A Medical DAY Branch leflunomide 2022-0 Yes 20mg Take 1 [facility] ers 20 mg 5-05 tablet by ity of tablet 10:57: mouth in [place] 19 the Medical morning. Branch ascorbic 2022-0 Yes 500mg Take 1 [facility] acid, 5-05 tablet by ity of vitamin C, 10:57: mouth in [place] 500 mg 19 the Medical tablet morning. Branch MAGNESIUM Yes Take by [facility] OXIDE 400 5-05 mouth ity of mg 10:57: daily. [place] magnesium 19 Medical Tab Branch leflunomide 3-0 Yes 20mg Take 1 [facility] ers 20 mg 5-05 tablet by ity of tablet 10:57: mouth in [place] [address] the Medical morning. Branch ascorbic 2023-0 Yes 500mg Take 1 [facility] acid, 5-05 tablet by ity of vitamin C, 10:57: mouth in [place] 500 mg 19 the Medical tablet morning. Branch MAGNESIUM 3-0 Yes Take by [facility] OXIDE 400 5-05 mouth ity of mg 10:57: daily. [place] magnesium 19 Medical Tab Branch leflunomide 3-0 Yes 20mg Take 1 [facility] ers 20 mg 5-05 tablet by ity of tablet 10:57: mouth in [place] [address] the Medical morning. Branch ascorbic 2023-0 Yes 500mg Take 1 [facility] acid, 5-05 tablet by ity of vitamin C, 10:57: mouth in [place] 500 mg 19 the Medical tablet morning. Branch MAGNESIUM 3-0 Yes Take by [facility] rs OXIDE 400 5-05 mouth ity of mg 10:57: daily. [place] magnesium Medical Tab Branch leflunomide 3-0 Yes 20mg Take 1 [facility] ers 20 mg 5-05 tablet by ity of tablet 10:57: mouth in [place] [address] the Medical morning. Branch ascorbic 3-0 Yes 500mg Take 1 [facility] acid, 5-05 tablet by ity of vitamin C, 10:57: mouth in [place] 500 mg 19 the Medical tablet morning. Branch MAGNESIUM 3-0 Yes Take by [facility] rs OXIDE 400 5-05 mouth ity of mg 10:57: daily. [place] magnesium 19 Medical Tab Branch leflunomide 3-0 Yes 20mg Take 1 [facility] ers 20 mg 5-05 tablet by ity of tablet 10:57: mouth in [place] [address] the Medical morning. Branch ascorbic 2023-0 Yes 500mg Take 1 [facility] acid, 5-05 tablet by ity of vitamin C, 10:57: mouth in [place] 500 mg 19 the Medical tablet morning. Branch MAGNESIUM 2023-0 Yes Take by [facility] OXIDE 400 5-05 mouth ity of mg 10:57: daily. [place] magnesium 19 Medical Tab Branch leflunomide 2023-0 Yes 20mg Take 1 [facility] ers 20 mg 5-05 tablet by ity of tablet 10:57: mouth in [place] [address] the Medical morning. Branch ascorbic 2023-0 Yes 500mg Take 1 [facility] acid, 5-05 tablet by ity of vitamin C, 10:57: mouth in [place] 500 mg 19 the Medical tablet morning. Branch MAGNESIUM 2023-0 Yes Take by [facility] OXIDE 400 5-05 mouth ity of mg 10:57: daily. [place] magnesium 19 Medical Tab Branch leflunomide 3-0 Yes 20mg Take 1 [facility] ers 20 mg 5-05 tablet by ity of tablet 10:57: mouth in [place] [address] the Medical morning. Branch ascorbic 2023-0 Yes 500mg Take 1 [facility] acid, 5-05 tablet by ity of vitamin C, 10:57: mouth in [place] 500 mg 19 the Medical tablet morning. Branch MAGNESIUM 2023-0 Yes Take by [facility] OXIDE 400 5-05 mouth ity of mg 10:57: daily. [place] magnesium Medical Tab Branch leflunomide 3-0 Yes 20mg Take 1 [facility] ers 20 mg 5-05 tablet by ity of tablet 10:57: mouth in [place] [address] the Medical morning. Branch ascorbic 3-0 Yes 500mg Take 1 [facility] acid, 5-05 tablet by ity of vitamin C, 10:57: mouth in [place] 500 mg 19 the Medical tablet morning. Branch MAGNESIUM 3-0 Yes Take by [facility] OXIDE 400 5-05 mouth ity of mg 10:57: daily. [place] magnesium Medical Tab Branch leflunomide 3-0 Yes 20mg Take 1 [facility] ers 20 mg 5-05 tablet by ity of tablet 10:57: mouth in [place] [address] the Medical morning. Branch ascorbic 2023-0 Yes 500mg Take 1 [facility] acid, 5-05 tablet by ity of vitamin C, 10:57: mouth in [place] 500 mg 19 the Medical tablet morning. Branch MAGNESIUM 2023-0 Yes Take by [facility] OXIDE 400 5-05 mouth ity of mg 10:57: daily. [place] magnesium 19 Medical Tab Branch leflunomide 2023-0 Yes 20mg Take 1 [facility] ers 20 mg 5-05 tablet by ity of tablet 10:57: mouth in [place] [address] the Medical morning. Branch ascorbic 2023-0 Yes 500mg Take 1 [facility] acid, 5-05 tablet by ity of vitamin C, 10:57: mouth in [place] 500 mg 19 the Medical tablet morning. Branch MAGNESIUM 3-0 Yes Take by [facility] rs OXIDE 400 5-05 mouth ity of mg 10:57: daily. [place] magnesium 19 Medical Tab Branch leflunomide 3-0 Yes 20mg Take 1 [facility] ers 20 mg 5-05 tablet by ity of tablet 10:57: mouth in [place] [address] the Medical morning. Branch ascorbic 2023-0 Yes 500mg Take 1 [facility] acid, 5-05 tablet by ity of vitamin C, 10:57: mouth in [place] 500 mg 19 the Medical tablet morning. Branch MAGNESIUM 3-0 Yes Take by [facility] rs OXIDE 400 5-05 mouth ity of mg 10:57: daily. [place] magnesium 19 Medical Tab Branch leflunomide 3-0 Yes 20mg Take 1 [facility] ers 20 mg 5-05 tablet by ity of tablet 10:57: mouth in [place] [address] the Medical morning. Branch ascorbic 3-0 Yes 500mg Take 1 [facility] acid, 5-05 tablet by ity of vitamin C, 10:57: mouth in [place] 500 mg 19 the Medical tablet morning. Branch MAGNESIUM 3-0 Yes Take by [facility] rs OXIDE 400 5-05 mouth ity of mg 10:57: daily. [place] magnesium 19 Medical Tab Branch leflunomide 3-0 Yes 20mg Take 1 [facility] ers 20 mg 5-05 tablet by ity of tablet 10:57: mouth in [place] [address] the Medical morning. Branch ascorbic 3-0 Yes 500mg Take 1 [facility] acid, 5-05 tablet by ity of vitamin C, 10:57: mouth in [place] 500 mg 19 the Medical tablet morning. Branch MAGNESIUM 2023-0 Yes Take by [facility] OXIDE 400 5-05 mouth ity of mg 10:57: daily. [place] magnesium 19 Medical Tab Branch leflunomide 3-0 Yes 20mg Take 1 [facility] ers 20 mg 5-05 tablet by ity of tablet 10:57: mouth in [place] [address] the Medical morning. Branch ascorbic 2023-0 Yes 500mg Take 1 [facility] acid, 5-05 tablet by ity of vitamin C, 10:57: mouth in [place] 500 mg 19 the Medical tablet morning. Branch MAGNESIUM 2023-0 Yes Take by [facility] OXIDE 400 5-05 mouth ity of mg 10:57: daily. [place] magnesium 19 Medical Tab Branch hydroCHLORO 2023-0 Yes [id number] 12.5mg Take 1 [facility] thiazide 5-05 capsule by ity o f 12.5 mg 00:00: mouth in [place] capsule 00 the Medical morning. Branch hydroCHLORO 2023-0 Yes [id number] 12.5mg Take 1 [facility] thiazide 5-05 capsule by ity o f 12.5 mg 00:00: mouth in [place] capsule 00 the Medical morning. Branch hydroCHLORO 2023-0 Yes [id number] 12.5mg Take 1 [facility] thiazide 5-05 capsule by ity o f 12.5 mg 00:00: mouth in [place] capsule 00 the Medical morning. Branch hydroCHLORO 2023-0 Yes [id number] 12.5mg Take 1 [facility] thiazide 5-05 capsule by ity o f 12.5 mg 00:00: mouth in [place] capsule 00 the Medical morning. Branch hydroCHLORO 2023-0 Yes [id number] 12.5mg Take 1 [facility] thiazide 5-05 capsule by ity o f 12.5 mg 00:00: mouth in [place] capsule 00 the Medical morning. Branch hydroCHLORO 2023-0 Yes [id number] 12.5mg Take 1 [facility] thiazide 5-05 capsule by ity o f 12.5 mg 00:00: mouth in [place] capsule 00 the Medical morning. Branch hydroCHLORO 2023-0 Yes [id number] 12.5mg Take 1 [facility] thiazide 5-05 capsule by ity o f 12.5 mg 00:00: mouth in [place] capsule 00 the Medical morning. Branch hydroCHLORO 2023-0 Yes [id number] 12.5mg Take 1 [facility] thiazide 5-05 capsule by ity o f 12.5 mg 00:00: mouth in [place] capsule 00 the Medical morning. Branch hydroCHLORO 2023-0 2023- No [id number] 12.5mg Take 1 [facility] thiazide 5-05 05-19 capsule by ity of 12.5 mg 00:00: 00:00 mouth in [place] capsule 00 :00 the Medical morning. Branch hydroCHLORO 2023-0 2023- No [id number] 12.5mg Take 1 [facility] thiazide 5-05 05-19 capsule by ity of 12.5 mg 00:00: 00:00 mouth in [place] capsule 00 :00 the Medical morning. Branch polyethylen 3-0 Yes 17g 17 g, [facility] e glycol 4-28 Oral, it[facility] of 3350 powder 14:45: [place]ILY, [place] 17 g 00 First dose Medical on [place] 02/09/23 at 0945, Until Discontinu ed, Routine bisacodyL 3-0 Yes 10mg 10 mg, [facility] (DULCOLAX) 4-28 Rectal, ity of suppository 14:31: QHSPRN, [place] 10 mg 59 Starting Medical on [place] 02/09/23 at 0931, Until Discontinu ed, Routine, Constipati on, IF CONSTIPATI ON DOESNT RESPOND TO MIRALAX AND SENNOKOT pantoprazol 3-0 Yes 40mg 40 mg, [facility] ers e 4-28 Oral, ity of (PROTONIX) 14:00: DAILY, [place] EC tablet 00 First dose Medi [place] 40 mg on [place] 02/09/23 at 0900, Until Discontinu ed, Routine Cholecalcif 3-0 Yes 2000U Take 2,000 [facility] [place], 4-28 Units by ity of Vitamin D3, 13:49: mouth [place] (VITAMIN 47 daily. Medical D3) 50 mcg Branch (2,000 unit) capsule leflunomide 3-0 Yes 20mg Take 1 [facility] ers 20 mg 4-28 tablet by ity of tablet 13:49: mouth in [place] [address] the Medical morning. Branch ascorbic 3-0 Yes 500mg Take 1 [facility] acid, 4-28 tablet by ity of vitamin C, 13:49: mouth in [facility] as (VITAMIN C) 47 the Medical 500 mg morning. Branch tablet MAGNESIUM 3-0 Yes Take by [facility] ers OXIDE 400 4-28 mouth ity of mg 13:49: daily. [place] magnesium 47 Medical Tab Branch Cholecalcif 2023-0 Yes 2000U Take 2,000 [facility] [place], 4-28 Units by ity of Vitamin D3, 13:49: mouth [place] (VITAMIN 47 daily. Medical D3) 50 mcg Branch (2,000 unit) capsule leflunomide 3-0 Yes 20mg Take 1 [facility] ers 20 mg 4-28 tablet by ity of tablet 13:49: mouth in [place] 47 the Medical morning. Branch ascorbic 2023-0 Yes 500mg Take 1 [facility] acid, 4-28 tablet by ity of vitamin C, 13:49: mouth in [place] (VITAMIN C) 47 the Medical 500 mg morning. Branch tablet MAGNESIUM 2023-0 Yes Take by [facility] OXIDE 400 4-28 mouth ity of mg 13:49: daily. [place] magnesium 47 Medical Tab Branch Cholecalcif 2023-0 Yes 2000U Take 2,000 [facility] [place], 4-28 Units by ity of Vitamin D3, 13:49: mouth [place] (VITAMIN 47 daily. Medical D3) 50 mcg Branch (2,000 unit) capsule leflunomide 2023-0 Yes 20mg Take 1 [facility] ers 20 mg 4-28 tablet by ity of tablet 13:49: mouth in [place] 47 the Medical morning. Branch ascorbic 2023-0 Yes 500mg Take 1 [facility] acid, 4-28 tablet by ity of vitamin C, 13:49: mouth in [place] (VITAMIN C) 47 the Medical 500 mg morning. Branch tablet MAGNESIUM 2023-0 Yes Take by [facility] OXIDE 400 4-28 mouth ity of mg 13:49: daily. [place] magnesium 47 Medical Tab Branch Cholecalcif 2023-0 Yes 2000U Take 2,000 [facility] [place], 4-28 Units by ity of Vitamin D3, 13:49: mouth [place] (VITAMIN 47 daily. Medical D3) 50 mcg Branch (2,000 unit) capsule Cholecalcif 2023-0 Yes 2000U Take 2,000 [facility] [place], 4-28 Units by ity of Vitamin D3, 13:49: mouth [place] (VITAMIN 47 daily. Medical D3) 50 mcg Branch (2,000 unit) capsule Cholecalcif 2023-0 Yes 2000U Take 2,000 [facility] [place], 4-28 Units by ity of Vitamin D3, 13:49: mouth [place] (VITAMIN 47 daily. Medical D3) 50 mcg Branch (2,000 unit) capsule Cholecalcif 2023-0 Yes 2000U Take 2,000 [facility] [place], 4-28 Units by ity of Vitamin D3, 13:49: mouth [place] (VITAMIN 47 daily. Medical D3) 50 mcg Branch (2,000 unit) capsule Cholecalcif 2023-0 Yes 2000U Take 2,000 [facility] [place], 4-28 Units by ity of Vitamin D3, 13:49: mouth [place] (VITAMIN 47 daily. Medical D3) 50 mcg Branch (2,000 unit) capsule Cholecalcif 2023-0 Yes 2000U Take 2,000 [facility] [place], 4-28 Units by ity of Vitamin D3, 13:49: mouth [place] (VITAMIN 47 daily. Medical D3) 50 mcg Branch (2,000 unit) capsule Cholecalcif 2023-0 Yes 2000U Take 2,000 [facility], 4-28 Units by ity of Vitamin D3, 13:49: mouth [place] (VITAMIN 47 daily. Medical D3) 50 mcg Branch (2,000 unit) capsule Cholecalcif 2023-0 Yes 2000U Take 2,000 [facility], 4-28 Units by ity of Vitamin D3, 13:49: mouth [place] (VITAMIN 47 daily. Medical D3) 50 mcg Branch (2,000 unit) capsule Cholecalcif 2023-0 Yes 2000U Take 2,000 [facility], 4-28 Units by ity of Vitamin D3, 13:49: mouth [place] (VITAMIN 47 daily. Medical D3) 50 mcg Branch (2,000 unit) capsule Cholecalcif 2023-0 Yes 2000U Take 2,000 [facility], 4-28 Units by ity of Vitamin D3, 13:49: mouth [place] (VITAMIN 47 daily. Medical D3) 50 mcg Branch (2,000 unit) capsule Cholecalcif 2023-0 Yes 2000U Take 2,000 [facility], 4-28 Units by ity of Vitamin D3, 13:49: mouth [place] (VITAMIN 47 daily. Medical D3) 50 mcg Branch (2,000 unit) capsule Cholecalcif 2023-0 Yes 2000U Take 2,000 [facility], 4-28 Units by ity of Vitamin D3, 13:49: mouth [place] (VITAMIN 47 daily. Medical D3) 50 mcg Branch (2,000 unit) capsule Cholecalcif 2023-0 Yes 2000U Take 2,000 [facility], 4-28 Units by ity of Vitamin D3, 13:49: mouth [place] (VITAMIN 47 daily. Medical D3) 50 mcg Branch (2,000 unit) capsule Cholecalcif 2023-0 Yes 2000U Take 2,000 [facility], 4-28 Units by ity of Vitamin D3, 13:49: mouth [place] (VITAMIN 47 daily. Medical D3) 50 mcg Branch (2,000 unit) capsule aspirin 81 3-0 2023- No 81mg Take 81 mg Univers mg tablet 4-28 04-28 by mouth ity o f 11:18: 00:00 daily. [place] 44 :00 Medical Branch amLODIPine 3-0 3- No 2.5mg Take 2.5 U nivers 2.5 mg 4-28 04-28 mg by ity of tablet 11:18: 00:00 mouth [place] 44 :00 daily. Medical Branch metoclopram 3-0 Yes [id number] 5mg Take 1 [facility] kaye HCl 5 4-28 tablet by ity o f mg tablet 00:00: mouth [place] 00 every 8 Medical (eight) Branch hours as needed for Nausea and Vomiting (N/V). metoclopram 3-0 Yes [id number] 5mg Take 1 [facility] kaye HCl 5 4-28 tablet by ity o f mg tablet 00:00: mouth [place] 00 every 8 Medical (eight) Branch hours as needed for Nausea and Vomiting (N/V). metoclopram 3-0 Yes [id number] 5mg Take 1 [facility] akye HCl 5 4-28 tablet by ity o f mg tablet 00:00: mouth [place] 00 every 8 Medical (eight) Branch hours as needed for Nausea and Vomiting (N/V). metoclopram 3-0 Yes [id number] 5mg Take 1 [facility] kaye HCl 5 4-28 tablet by ity o f mg tablet 00:00: mouth [place] 00 every 8 Medical (eight) Branch hours as needed for Nausea and Vomiting (N/V). metoclopram 3-0 Yes [id number] 5mg Take 1 [facility] kaye HCl 5 4-28 tablet by ity o f mg tablet 00:00: mouth [place] 00 every 8 Medical (eight) Branch hours as needed for Nausea and Vomiting (N/V). metoclopram 3-0 Yes [id number] 5mg Take 1 [facility] kaye HCl 5 4-28 tablet by ity o f mg tablet 00:00: mouth [place] 00 every 8 Medical (eight) Branch hours as needed for Nausea and Vomiting (N/V). metoclopram 2023-0 Yes [id number] 5mg Take 1 [facility] kaye HCl 5 4-28 tablet by ity o f mg tablet 00:00: mouth [place] 00 every 8 Medical (eight) Branch hours as needed for Nausea and Vomiting (N/V). metoclopram 2023-0 Yes [id number] 5mg Take 1 [facility] kaye HCl 5 4-28 tablet by ity o f mg tablet 00:00: mouth [place] 00 every 8 Medical (eight) Branch hours as needed for Nausea and Vomiting (N/V). metoclopram 3-0 Yes [id number] 5mg Take 1 [facility] kaye HCl 5 4-28 tablet by ity o f mg tablet 00:00: mouth [place] 00 every 8 Medical (eight) Branch hours as needed for Nausea and Vomiting (N/V). metoclopram 3-0 Yes [id number] 5mg Take 1 [facility] kaye HCl 5 4-28 tablet by ity o f mg tablet 00:00: mouth [place] 00 every 8 Medical (eight) Branch hours as needed for Nausea and Vomiting (N/V). metoclopram 3-0 Yes [id number] 5mg Take 1 [facility] kaye HCl 5 4-28 tablet by ity o f mg tablet 00:00: mouth [place] 00 every 8 Medical (eight) Branch hours as needed for Nausea and Vomiting (N/V). metoprolol 2022-0 2022- No [id number] 100mg Take 2 [facility] succinate 4-28 05-29 tablets by ity of XL 50 mg 24 00:00: 04:59 mouth in [place] hr tablet 00 :00 the Medical morning Branch and 2 tablets in the evening. Do all this for 30 days. metoprolol 2022-0 2022- No [id number] 100mg Take 2 [facility] succinate 4-28 05-29 tablets by ity of XL 50 mg 24 00:00: 04:59 mouth in [place] hr tablet 00 :00 the Medical morning Branch and 2 tablets in the evening. Do all this for 30 days. metoprolol 2022-0 2022- No [id number] 100mg Take 2 [facility] succinate 4-28 05-29 tablets by ity of XL 50 mg 24 00:00: 04:59 mouth in [place] hr tablet 00 :00 the Medical morning Branch and 2 tablets in the evening. Do all this for 30 days. metoprolol 2022-0 2022- No [id number] 100mg Take 2 [facility] succinate 4-28 05-29 tablets by ity of XL 50 mg 24 00:00: 04:59 mouth in [place] hr tablet 00 :00 the Medical morning Branch and 2 tablets in the evening. Do all this for 30 days. metoprolol 2022-2022- No [id number] 100mg Take 2 [facility] succinate 4-28 05-29 tablets by ity of XL 50 mg 24 00:00: 04:59 mouth in [place] hr tablet 00 :00 the Medical morning Branch and 2 tablets in the evening. Do all this for 30 days. metoprolol 2022-0 2022- No [id number] 100mg Take 2 [facility] succinate 4-28 05-29 tablets by ity of XL 50 mg 24 00:00: 04:59 mouth in [place] hr tablet 00 :00 the Medical morning Branch and 2 tablets in the evening. Do all this for 30 days. metoprolol 2022-0 2022- No [id number] 100mg Take 2 [facility] succinate 4-28 05-29 tablets by ity of XL 50 mg 24 00:00: 04:59 mouth in [place] hr tablet 00 :00 the Medical morning Branch and 2 tablets in the evening. Do all this for 30 days. metoprolol 2022-0 2022- No [id number] 100mg Take 2 [facility] succinate 4-28 05-29 tablets by ity of XL 50 mg 24 00:00: 04:59 mouth in [place] hr tablet 00 :00 the Medical morning Branch and 2 tablets in the evening. Do all this for 30 days. metoprolol 2022-0 2022- No [id number] 100mg Take 2 [facility] succinate 4-28 05-29 tablets by ity of XL 50 mg 24 00:00: 04:59 mouth in [place] hr tablet 00 :00 the Medical morning Branch and 2 tablets in the evening. Do all this for 30 days. metoprolol 2022-0 2022- No [id number] 100mg Take 2 [facility] succinate 4-28 05-29 tablets by ity of XL 50 mg 24 00:00: 04:59 mouth in [place] hr tablet 00 :00 the Medical morning Branch and 2 tablets in the evening. Do all this for 30 days. metoprolol 2022-0 2022- No [id number] 100mg Take 2 [facility] succinate 4-28 05-29 tablets by ity of XL 50 mg 24 00:00: 04:59 mouth in [place] hr tablet 00 :00 the Medical morning Branch and 2 tablets in the evening. Do all this for 30 days. metoprolol 2022-0 2022- No [id number] 100mg Take 2 [facility] succinate 4-28 05-29 tablets by ity of XL 50 mg 24 00:00: 04:59 mouth in [place] hr tablet 00 :00 the Medical morning Branch and 2 tablets in the evening. Do all this for 30 days. metoprolol 2022-0 2022- No [id number] 100mg Take 2 [facility] succinate 4-28 05-29 tablets by ity of XL 50 mg 24 00:00: 04:59 mouth in [place] hr tablet 00 :00 the Medical morning Branch and 2 tablets in the evening. Do all this for 30 days. metoprolol 2022-2022- No [id number] 100mg Take 2 [facility] succinate 4-28 05-29 tablets by ity of XL 50 mg 24 00:00: 04:59 mouth in [place] hr tablet 00 :00 the Medical morning Branch and 2 tablets in the evening. Do all this for 30 days. metoprolol 2022-0 2022- No [id number] 100mg Take 2 [facility] succinate 4-28 05-29 tablets by ity of XL 50 mg 24 00:00: 04:59 mouth in [place] hr tablet 00 :00 the Medical morning Branch and 2 tablets in the evening. Do all this for 30 days. metoclopram 2022- No [id number] 5mg Take 1 [facility] kaye HCl 5 - 05-19 tablet by ity of mg tablet 00:00: 00:00 mouth [place] 00 :00 every 8 Medical (eight) Branch hours as needed for Nausea and Vomiting (N/V). metoclopram 2022-2022- No [id number] 5mg Take 1 [facility] kaye HCl 5 -28 05-19 tablet by ity of mg tablet 00:00: 00:00 mouth [place] 00 :00 every 8 Medical (eight) Branch hours as needed for Nausea and Vomiting (N/V). clopidogreL Yes 75mg 75 mg, Univ ers (PLAVIX) 75 4-27 Oral, ity of mg tablet 14:00: DAILY, [place] 75 mg 00 First dose Medical on [place] Branch 02/08/23 at 0900, Until Discontinu ed, Routine levothyroxi Yes 112ug 112 mcg, U nivers ne 4-27 Oral, QAM, ity of (SYNTHROID) 14:00: First dose [place] tablet 112 00 on [place] Medical mcg 02/08/23 at Branch 0900, Until Discontinu ed, Routine lactated 2022- No 1000mL at 100 Univ ers ringers IV 02-08 mL/hr, ity of infusion 13:30: 13:29 1,000 mL, [place] 1,000 mL 00 :00 IV Medical Infusion, Branch CONTINUOUS , Starting on Sun02/08/23 at 0830, Until Sun02/09/23 at 0829, Routine metoprolol Yes 100mg 100 mg, Uni vers succinate 02-08 Oral, BID, ity of XL (TOPROL 13:15: First dose [place] XL) tablet 00 on [place] Medical 100 mg 02/08/23 at Branch 0815, Until Discontinu ed, Routine magnesium No 2g 2 g, IV [facility] ers sulfate in 02-08 Piggyback, it y of water 2 13:00: 16:12 Administer [place] gram/50 mL 00 :00 over 120 Medic al (4 %) Minutes, Branch infusion 2 ONCE, 1 g dose, On [place] 02/08/23 at 0800, Routine KCL 20 2022- No 40meq 40 mEq, Univer s mEq/15 mL 02-08 Oral, ity of solution 40 13:00: 14:12 ONCE, 1 [place] mEq 00 :00 dose, On Medical [place] Branch 02/08/23 at 0800, Routine metoclopram No 10mg 10 mg, Uni vers kaye HCl 02-07 Slow IV ity of (REGLAN) 17:00: 22:52 Push, Q6H, [place] injection 00 :00 6 doses, Medica l 10 mg First dose Branch on Sun02/07/23 at 1200, Last dose on Sun02/08/23 at 1800, Routine potassium 2022- No 30mmol 30 mmol, U nivers phosphate 02-07 IV ity of 30 mmol in 15:00: 19:20 Piggyback, [place] NaCl 0.9% 00 :00 ONCE, 1 Medical (NS) 500 mL dose, On [facility] piggyback Sun02/07/23 at 1000, 500 mL KCL 20 2022- No 40meq 40 mEq, Univer s mEq/15 mL 02-07 Oral, ity of solution 40 14:00: 16:45 ONCE, 1 [place] mEq 00 :00 dose, On Sun02/07/23 at 0900, Routine magnesium 2022- No 2g 2 g, IV Univ ers sulfate in 02-07 Piggyback, it y of water 2 14:00: 21:52 Administer [place] gram/50 mL 00 :00 over 120 Medic al (4 %) Minutes, Branch infusion 2 ONCE, 1 g dose, On Sun02/07/23 at 0900, Routine lactated 2022- No 1000mL at 100 Univ ers ringers IV 02-07 mL/hr, ity of infusion 13:30: 13:15 1,000 mL, [place] 1,000 mL 00 :29 IV Medical Infusion, Branch CONTINUOUS , Starting on Sun02/07/23 at 0830, Until Sun02/08/23 at 0815, Routine metoprolol 2022- No 5mg 5 mg, Unive rs (LOPRESSOR) 02-07 Intravenou i ty of injection 5 03:00: 13:13 s, Q8H, [place] mg 00 :31 First dose Medical on Sun02/06/23 at 2200, Until Discontinu ed, Routine NaCl 0.9% 2022- No 500mL at 999 Univ ers (NS) bolus 02-06 mL/hr, 500 it y of infusion 22:15: 00:00 mL, IV [place] 500 mL 00 :00 Piggyback, Medical ONCE, 1 Branch dose, On Sun02/06/23 at 1715, STAT Sliding Yes Subcutaneo Univ ers Scale 4-25 us, TID ity of Insulin - 22:00: MEALS+HS, [place] Lispro 00 First dose Medical (HumaLOG) + on Sun Fsbg 02/06/23 at Testing 1700, Until Discontinu ed, Routine enoxaparin Yes 40mg 40 mg, Unive rs (LOVENOX) 02-06 Subcutaneo ity of injection 22:00: us, DAILY, [place] 40 mg 00 First dose Medical on Sun Branch 02/06/23 at 1700, Until Discontinu ed, Routine pantoprazol No 40mg 40 mg, Uni vers e 02-06 Slow IV ity of (PROTONIX) 21:30: 12:57 Push, [place] injection 00 :27 DAILY, Medical 40 mg First dose Branch on Sun02/06/23 at 1630, Until Discontinu ed levothyroxi No 100ug 100 mcg, Univers ne 02-0627 Intravenou ity of (SYNTHROID) 21:30: 13:13 s, DAILY, [place] injection 00 :31 First dose Medi [place] 100 mcg on Sun Branch 02/06/23 at 1630, Until Discontinu ed, Routine lactated No 1000mL at 125 Univ ers ringers IV 02-0626 mL/hr, ity of infusion 21:30: 13:27 1,000 mL, [place] 1,000 mL 00 :04 IV Medical Infusion, Branch CONTINUOUS , Starting on Sun02/06/23 at 1630, Until Sun02/07/23 at 0827, Routine guaiFENesin Yes 200mg 200 mg, Un sarah (FENESIN 4-25 Oral, ity of IR) tablet 21:25: Q4HPRN, [place] 200 mg 15 Starting Medical on [place] Branch 02/06/23 at 1625, Until Discontinu ed, Routine, Cough ondansetron Yes 4mg 4 mg, Slow Univers (ZOFRAN 4-25 IV Push, ity of (PF)) 21:25: Q6HPRN, [place] injection 4 15 Starting Medi [place] mg on Sun Branch 02/06/23 at 1625, Until Discontinu ed, Routine, Nausea and Vomiting (N/V) sennosides- Yes 1{tbl} 1 tablet, Univers docusate 4-25 Oral, ity of sodium 21:25: QDAILYPRN, [place] (SENOKOT-S) 15 Starting Medi [place] 8.6-50 mg on Sun Branch per tablet 02/06/23 at 1 tablet 1625, Until Discontinu ed, Routine, Constipati on acetaminoph 2023-0 Yes 650mg 650 mg, Un sarah en - Oral, ity of (TYLENOL) 21:25: Q6HPRN, [place] tablet 650 15 Starting Medic al mg on Tue Branch 02/06/23 at 1625, Until Discontinu ed, Routine, Pain (scale 1-3) rosuvastati Yes [id number] TAKE 1 Univers n 40 mg 3-22 TABLET BY ity of tablet 00:00: [facility] EVERY DAY Medical Branch rosuvastati 0 Yes [id number] TAKE 1 Univers n 40 mg 3-22 TABLET BY ity of tablet 00:00: MOUTH [place] EVERY DAY Medical Branch rosuvastati 0 Yes [id number] TAKE 1 Univers n 40 mg 3-22 TABLET BY ity of tablet 00:00: [facility] DAY Medical Branch rosuvastati Yes [id number] TAKE 1 Univers n 40 mg 3-22 TABLET BY ity of tablet 00:00: [facility] DAY Medical Branch rosuvastati 0 Yes [id number] TAKE 1 Univers n 40 mg 3-22 TABLET BY ity of tablet 00:00: [facility] DAY Medical Branch rosuvastati 0 Yes [id number] TAKE 1 Univers n 40 mg 3-22 TABLET BY ity of tablet 00:00: [facility] DAY Medical Branch rosuvastati 0 Yes [id number] TAKE 1 Univers n 40 mg 3-22 TABLET BY ity of tablet 00:00: [facility] DAY Medical Branch rosuvastati 0 Yes [id number] TAKE 1 Univers n 40 mg 3-22 TABLET BY ity of tablet 00:00: [facility] EVERY DAY Medical Branch rosuvastati 0 Yes [id number] TAKE 1 Univers n 40 mg 3-22 TABLET BY ity of tablet 00:00: [facility] EVERY DAY Medical Branch rosuvastati 0 Yes [id number] TAKE 1 Univers n 40 mg 3-22 TABLET BY ity of tablet 00:00: [facility] EVERY DAY Medical Branch rosuvastati 0 Yes [id number] TAKE 1 Univers n 40 mg 3-22 TABLET BY ity of tablet 00:00: [facility] EVERY DAY Medical Branch rosuvastati 0 Yes [id number] TAKE 1 Univers n 40 mg 3-22 TABLET BY ity of tablet 00:00: MOUTH [place] 00 EVERY DAY Medical Branch rosuvastati 2022-0 Yes [id number] TAKE 1 Univers n 40 mg 3-22 TABLET BY ity of tablet 00:00: MOUTH [place] EVERY DAY Medical Branch rosuvastati 2022-0 Yes [id number] TAKE 1 Univers n 40 mg 3-22 TABLET BY ity of tablet 00:00: MOUTH [place] EVERY DAY Medical Branch rosuvastati 2022-0 Yes [id number] TAKE 1 Univers n 40 mg 3-22 TABLET BY ity of tablet 00:00: MOUTH [place] 00 EVERY DAY Medical Branch rosuvastati 2022-0 Yes [id number] TAKE 1 Univers n 40 mg 3-22 TABLET BY ity of tablet 00:00: MOUTH EVERY DAY Medical Branch rosuvastati 2022-0 Yes [id number] TAKE 1 Univers n 40 mg 3-22 TABLET BY ity of tablet 00:00: MOUTH EVERY DAY Medical Branch rosuvastati 2022-0 Yes [id number] TAKE 1 Univers n 40 mg 3-22 TABLET BY ity of tablet 00:00: MOUTH 00 EVERY DAY Medical Branch rosuvastati 2022-0 Yes [id number] TAKE 1 Univers n 40 mg 3-22 TABLET BY ity of tablet 00:00: MOUTH [place] EVERY DAY Medical Branch rosuvastati 2022-0 Yes [id number] TAKE 1 Univers n 40 mg 3-22 TABLET BY ity of tablet 00:00: MOUTH [place] EVERY DAY Medical Branch rosuvastati 2022-0 Yes [id number] TAKE 1 Univers n 40 mg 3-22 TABLET BY ity of tablet 00:00: MOUTH [place] 00 EVERY DAY Medical Branch rosuvastati 2022-0 Yes [id number] TAKE 1 Univers n 40 mg 3-22 TABLET BY ity of tablet 00:00: MOUTH 00 EVERY DAY Medical Branch rosuvastati 2022-0 Yes [id number] TAKE 1 Univers n 40 mg 3-22 TABLET BY ity of tablet 00:00: MOUTH [place] 00 EVERY DAY Medical Branch rosuvastati 2022-0 Yes [id number] TAKE 1 Univers n 40 mg 3-22 TABLET BY ity of tablet 00:00: MOUTH [place] EVERY DAY Medical Branch rosuvastati 2022-0 Yes [id number] TAKE 1 Univers n 40 mg 3-22 TABLET BY ity of tablet 00:00: MOUTH [place] 00 EVERY DAY Medical Branch rosuvastati 2022-0 Yes [id number] TAKE 1 Univers n 40 mg 3-22 TABLET BY ity of tablet 00:00: MOUTH [place] 00 EVERY DAY Medical Branch rosuvastati 2022-0 Yes [id number] TAKE 1 Univers n 40 mg 3-22 TABLET BY ity of tablet 00:00: MOUTH [place] 00 EVERY DAY Medical Branch rosuvastati 2022-0 Yes [id number] TAKE 1 Univers n 40 mg 3-22 TABLET BY ity of tablet 00:00: MOUTH [place] 00 EVERY DAY Medical Branch rosuvastati 2022-0 Yes [id number] TAKE 1 Univers n 40 mg 3-22 TABLET BY ity of tablet 00:00: MOUTH [place] 00 EVERY DAY Medical Branch rosuvastati 2022-0 Yes [id number] TAKE 1 Univers n 40 mg 3-22 TABLET BY ity of tablet 00:00: MOUTH [place] 00 EVERY DAY Medical Branch rosuvastati 2022-0 Yes [id number] TAKE 1 Univers n 40 mg 3-22 TABLET BY ity of tablet 00:00: MOUTH [place] 00 EVERY DAY Medical Branch rosuvastati 2022-0 Yes [id number] TAKE 1 Univers n 40 mg 3-22 TABLET BY ity of tablet 00:00: MOUTH [place] 00 EVERY DAY Medical Branch rosuvastati 2022-0 Yes [id number] TAKE 1 Univers n 40 mg 3-22 TABLET BY ity of tablet 00:00: MOUTH [place] 00 EVERY DAY Medical Branch rosuvastati 2022-0 3- No [id number] TAKE 1 Univers n 40 mg 3-22 09-13 TABLET BY ity of tablet 00:00: 00:00 MOUTH [place] 00 :00 EVERY DAY Medical Branch ascorbic 2022-0 2022- No 500mg 500 mg Unive rs acid 2-07 16-10 daily. ity of (VITAMIN C 07:55: 00:00 [place] ORAL) 04 :00 Medical Branch ascorbic 2022-0 2022- No 500mg 500 mg Unive rs acid 2-10 -10 daily. ity of (VITAMIN C 07:55: 00:00 [place] ORAL) 04 :00 Medical Branch vitamin 2023-0 2022- No 1000ug Take 1,000 U nivers B-12 2-07 16-10 mcg by ity of (VITAMIN 07:54: 00:00 mouth [place] B-12) 1,000 58 :00 daily. Medica l mcg tablet Takes 3000 Bra n[facility] mcg daily vitamin 2023-0 2023- No 1000ug Take 1,000 U nivers B-12 2-10 02-10 mcg by ity of (VITAMIN 07:54: 00:00 mouth [place] B-12) 1,000 58 :00 daily. Medica l mcg tablet Takes 3000 Bra n[facility] mcg daily empaglifloz 2023-0 Yes [id number] 10mg Take 1 Univers in 2-10 tablet by ity of (JARDIANCE) 00:00: mouth in [place] 10 mg 00 the Medical morning. Branch empaglifloz 2023-0 Yes [id number] 10mg Take 1 Univers in 2-10 tablet by ity of (JARDIANCE) 00:00: mouth in [place] 10 mg 00 the Medical morning. Branch empaglifloz 2023-0 Yes [id number] 10mg Take 1 Univers in 2-10 tablet by ity of (JARDIANCE) 00:00: mouth in [place] 10 mg 00 the Medical morning. Branch empaglifloz 2023-0 Yes [id number] 10mg Take 1 Univers in 2-10 tablet by ity of (JARDIANCE) 00:00: mouth in [place] 10 mg 00 the Medical morning. Branch empaglifloz 2023-0 Yes [id number] 10mg Take 1 Univers in 2-10 tablet by ity of (JARDIANCE) 00:00: mouth in [place] 10 mg 00 the Medical morning. Branch empaglifloz 2023-0 Yes [id number] 10mg Take 1 Univers in 2-10 tablet by ity of (JARDIANCE) 00:00: mouth in [place] 10 mg 00 the Medical morning. Branch empaglifloz 2023-0 Yes [id number] 10mg Take 1 Univers in 2-10 tablet by ity of (JARDIANCE) 00:00: mouth in [place] 10 mg 00 the Medical morning. Branch empaglifloz 2023-0 Yes [id number] 10mg Take 1 Univers in 2-10 tablet by ity of (JARDIANCE) 00:00: mouth in [place] 10 mg 00 the Medical morning. Branch empaglifloz 2023-0 Yes [id number] 10mg Take 1 Univers in 2-10 tablet by ity of (JARDIANCE) 00:00: mouth in [place] 10 mg 00 the Medical morning. Branch empaglifloz 2023-0 Yes [id number] 10mg Take 1 Univers in 2-10 tablet by ity of (JARDIANCE) 00:00: mouth in [place] 10 mg 00 the Medical morning. Branch empaglifloz 2023-0 Yes [id number] 10mg Take 1 Univers in 2-10 tablet by ity of (JARDIANCE) 00:00: mouth in [place] 10 mg 00 the Medical morning. Branch empaglifloz 2023-0 Yes [id number] 10mg Take 1 Univers in 2-10 tablet by ity of (JARDIANCE) 00:00: mouth in [place] 10 mg 00 the Medical morning. Branch empaglifloz 2023-0 Yes [id number] 10mg Take 1 Univers in 2-10 tablet by ity of (JARDIANCE) 00:00: mouth in [place] 10 mg 00 the Medical morning. Branch empaglifloz 2023-0 Yes [id number] 10mg Take 1 Univers in 2-10 tablet by ity of (JARDIANCE) 00:00: mouth in [place] 10 mg 00 the Medical morning. Branch empaglifloz 2023-0 Yes [id number] 10mg Take 1 Univers in 2-10 tablet by ity of (JARDIANCE) 00:00: mouth in [place] 10 mg 00 the Medical morning. Branch empaglifloz 2023-0 Yes [id number] 10mg Take 1 Univers in 2-10 tablet by ity of (JARDIANCE) 00:00: mouth in [place] 10 mg 00 the Medical morning. Branch empaglifloz 2023-0 Yes [id number] 10mg Take 1 Univers in 2-10 tablet by ity of (JARDIANCE) 00:00: mouth in [place] 10 mg 00 the Medical morning. Branch empaglifloz 2023-0 Yes [id number] 10mg Take 1 Univers in 2-10 tablet by ity of (JARDIANCE) 00:00: mouth in [place] 10 mg 00 the Medical morning. Branch empaglifloz 2023-0 Yes [id number] 10mg Take 1 Univers in 2-10 tablet by ity of (JARDIANCE) 00:00: mouth in [place] 10 mg 00 the Medical morning. Branch empaglifloz Yes [id number] 10mg Take 1 Univers in 2-10 tablet by ity of (JARDIANCE) 00:00: mouth in [place] 10 mg 00 the Medical morning. Branch empaglifloz 2022- No [id number] 10mg Take 1 Univers in 2-10 05-26 tablet by ity of (JARDIANCE) 00:00: 00:00 mouth in [place] 10 mg 00 :00 the Medical morning. Branch rosuvastati 2021-10- No TAKE 1 Uni vers n 40 mg 2-22 12-22 TABLET BY ity of tablet 15:02: 00:00 MOUTH [place] 30 :00 EVERY DAY Medical FOR 90 Branch DAYS metoprolol 2021-10 Yes [id number] 50mg Take 1 U nivers succinate 2-22 tablet by ity o f XL 50 mg 24 00:00: mouth in [place] hr tablet 00 the Medical morning Branch and 1 tablet in the evening. rosuvastati 2021-10 Yes [id number] TAKE 1 Univers n 40 mg 2-22 TABLET BY ity of tablet 00:00: MOUTH [place] 00 EVERY DAY Medical FOR 90 Branch DAYS metoprolol 2021-10 Yes [id number] 50mg Take 1 U nivers succinate 2-22 tablet by ity o f XL 50 mg 24 00:00: mouth in [place] hr tablet 00 the Medical morning Branch and 1 tablet in the evening. rosuvastati 2021-10 Yes [id number] TAKE 1 Univers n 40 mg 2-22 TABLET BY ity of tablet 00:00: MOUTH [place] 00 EVERY DAY Medical FOR 90 Branch DAYS metoprolol 2021-10 Yes [id number] 50mg Take 1 U nivers succinate 2-22 tablet by ity o f XL 50 mg 24 00:00: mouth in [place] hr tablet 00 the Medical morning Branch and 1 tablet in the evening. rosuvastati 2021-10 Yes [id number] TAKE 1 Univers n 40 mg 2-22 TABLET BY ity of tablet 00:00: MOUTH [place] 00 EVERY DAY Medical FOR 90 Branch DAYS metoprolol 2021-10 Yes [id number] 50mg Take 1 U nivers succinate 2-22 tablet by ity o f XL 50 mg 24 00:00: mouth in [place] hr tablet 00 the Medical morning Branch and 1 tablet in the evening. rosuvastati 2021-10 Yes [id number] TAKE 1 Univers n 40 mg 2-22 TABLET BY ity of tablet 00:00: MOUTH [place] 00 EVERY DAY Medical FOR 90 Branch DAYS metoprolol 2021-10 Yes [id number] 50mg Take 1 U nivers succinate 2-22 tablet by ity o f XL 50 mg 24 00:00: mouth in [place] hr tablet 00 the Medical morning Branch and 1 tablet in the evening. rosuvastati 2021-10 Yes [id number] TAKE 1 Univers n 40 mg 2-22 TABLET BY ity of tablet 00:00: MOUTH [place] 00 EVERY DAY Medical FOR 90 Branch DAYS metoprolol 2021-10 Yes [id number] 50mg Take 1 U nivers succinate 2-22 tablet by ity o f XL 50 mg 24 00:00: mouth in [place] hr tablet 00 the Medical morning Branch and 1 tablet in the evening. rosuvastati 2021-10 Yes [id number] TAKE 1 Univers n 40 mg 2-22 TABLET BY ity of tablet 00:00: MOUTH [place] 00 EVERY DAY Medical FOR 90 Branch DAYS metoprolol 2021-10 Yes [id number] 50mg Take 1 U nivers succinate 2-22 tablet by ity o f XL 50 mg 24 00:00: mouth in [place] hr tablet 00 the Medical morning Branch and 1 tablet in the evening. rosuvastati 2021-10 Yes [id number] TAKE 1 Univers n 40 mg 2-22 TABLET BY ity of tablet 00:00: MOUTH [place] 00 EVERY DAY Medical FOR 90 Branch DAYS metoprolol 2021-10 Yes [id number] 50mg Take 1 U nivers succinate 2-22 tablet by ity o f XL 50 mg 24 00:00: mouth in [place] hr tablet 00 the Medical morning Branch and 1 tablet in the evening. rosuvastati 2021-10 Yes [id number] TAKE 1 Univers n 40 mg 2-22 TABLET BY ity of tablet 00:00: MOUTH [place] 00 EVERY DAY Medical FOR 90 Branch DAYS metoprolol 2021-10 Yes [id number] 50mg Take 1 U nivers succinate 2-22 tablet by ity o f XL 50 mg 24 00:00: mouth in [place] hr tablet 00 the Medical morning Branch and 1 tablet in the evening. rosuvastati 2021-10 Yes [id number] TAKE 1 Univers n 40 mg 2-22 TABLET BY ity of tablet 00:00: MOUTH [place] 00 EVERY DAY Medical FOR 90 Branch DAYS metoprolol 2021-10 Yes [id number] 50mg Take 1 [facility] n[facility] succinate 2-22 tablet by [facility] o f XL 50 mg 24 00:00: mouth in [place] hr tablet 00 the Medical morning Branch and 1 tablet in the evening. rosuvastati 2021-10 Yes [id number] TAKE 1 [facility] 40 mg 2-22 TABLET BY [facility] of tablet 00:00: MOUTH [place] 00 EVERY DAY Medical FOR 90 Branch DAYS metoprolol 2021-10 Yes [id number] 50mg Take 1 [facility] nivers succinate 2-22 tablet by [facility]y o f XL 50 mg 24 00:00: mouth in [place] hr tablet 00 the Medical morning Branch and 1 tablet in the evening. rosuvastati 2021-10 Yes [id number] TAKE 1 [facility] n 40 mg 2-22 TABLET BY [facility] of tablet 00:00: MOUTH [place] 00 EVERY DAY Medical FOR 90 Branch DAYS metoprolol 2021-10 Yes [id number] 50mg Take 1 [facility] nivers succinate 2-22 tablet by [facility] o f XL 50 mg 24 00:00: mouth in [place] hr tablet 00 the Medical morning Branch and 1 tablet in the evening. rosuvastati 2021-10 Yes [id number] TAKE 1 [facility] n 40 mg 2-22 TABLET BY [facility] of tablet 00:00: MOUTH [place] 00 EVERY DAY Medical FOR 90 Branch DAYS metoprolol 2021-10 Yes [id number] 50mg Take 1 [facility] n[facility] succinate 2-22 tablet by [facility] o f XL 50 mg 24 00:00: mouth in [place] hr tablet 00 the Medical morning Branch and 1 tablet in the evening. metoprolol 2021-10- No [id number] 50mg Take 1 [facility] succinate 2-22 04-28 tablet by it[facility] of XL 50 mg 24 00:00: 00:00 mouth in [place] hr tablet 00 :00 the Medical morning Branch and 1 tablet in the evening. rosuvastati 2021-10- No [id number] TAKE 1 [facility] n 40 mg 2-22 [...] 10-21 ity of itamin D3 08:36: 00:00 [place] (VITAMIN 36 :00 Medical D-3 ORAL) Branch CETIRIZINE 2021-10- No Take by [facility] vers HCL (ZYRTEC 10-21 mouth. ity o f ORAL) 08:36: 00:00 [place] 24 :00 Medical Branch CETIRIZINE 2021-10- No Take by [facility] HCL (ZYRTEC 10-21 mouth. ity o f ORAL) 08:36: 00:00 [place] 24 :00 Medical Branch CETIRIZINE 2021-10- No Take by [facility] HCL (ZYRTEC 10-21 mouth. ity o f ORAL) 08:36: 00:00 [place] 24 :00 Medical Branch CETIRIZINE 2021-10- No Take by [facility] HCL (ZYRTEC 10-21 mouth. ity o f ORAL) 08:36: 00:00 [place] 24 :00 Medical Branch levothyroxi 2021-10 Yes [id number] 112ug Take 1 [facility] ne 112 mcg 1-07 tablet by [facility] of tablet 00:00: mouth [place] 00 every Medical morning. Branch omeprazole 2021-10 Yes [id number] 40mg Take 1 [facility] 40 mg 1-07 capsule by [facility] of capsule 00:00: mouth in [place] 00 the Medical morning. Branch levothyroxi 2021-10 Yes [id number] 112ug Take 1 [facility] ne 112 mcg 1-07 tablet by [facility] of tablet 00:00: mouth [place] [address] every Medical morning. [place] omeprazole 2021-10 Yes [id number] 40mg Take 1 [facility] 40 mg 1-07 capsule by [facility] of capsule 00:00: mouth in [place] 00 the Medical morning. Branch levothyroxi 2021-10 Yes [id number] 112ug Take 1 [facility] ne 112 mcg 1-07 tablet by [facility] of tablet 00:00: mouth [place] 00 every Medical morning. Branch omeprazole 2021-10 Yes [id number] 40mg Take 1 [facility] 40 mg 1-07 capsule by [facility] of capsule 00:00: mouth in [place] 00 the Medical morning. Branch levothyroxi 2021-10 Yes [id number] 112ug Take 1 [facility] ne 112 mcg 1-07 tablet by [facility] of tablet 00:00: mouth [place] 00 every Medical morning. Branch omeprazole 2021-10 Yes [id number] 40mg Take 1 [facility] 40 mg 1-07 capsule by [facility] of capsule 00:00: mouth in [place] 00 the Medical morning. [place] levothyroxi 2021-10 Yes [id number] 112ug Take 1 [facility] ne 112 mcg 1-07 tablet by [facility] of tablet 00:00: mouth [place] 00 every Medical morning. Branch omeprazole 2021-10 Yes [id number] 40mg Take 1 [facility] 40 mg 1-07 capsule by [facility] of capsule 00:00: mouth in [place] 00 the Medical morning. Branch levothyroxi 2021-10 Yes [id number] 112ug Take 1 [facility] ne 112 mcg 1-07 tablet by [facility] of tablet 00:00: mouth [place] 00 every Medical morning. [place] omeprazole 2021-10 Yes [id number] 40mg Take 1 [facility] 40 mg 1-07 capsule by [facility] of capsule 00:00: mouth in [place] 00 the Medical morning. Branch levothyroxi 2021-10 Yes [id number] 112ug Take 1 [facility] ne 112 mcg 1-07 tablet by [facility] of tablet 00:00: mouth [place] 00 every Medical morning. Branch omeprazole 2021-10 Yes [id number] 40mg Take 1 [facility] 40 mg 1-07 capsule by [facility] of capsule 00:00: mouth in [place] 00 the Medical morning. Branch levothyroxi 2021-10 Yes [id number] 112ug Take 1 [facility] 112 mcg 1-07 tablet by [facility] of tablet 00:00: mouth [place] 00 every Medical morning. Branch omeprazole 2021-10 Yes [id number] 40mg Take 1 [facility] 40 mg 1-07 capsule by [facility] of capsule 00:00: mouth in [place] 00 the Medical morning. Branch levothyroxi 2021-10 Yes [id number] 112ug Take 1 [facility] ne 112 mcg 1-07 tablet by [facility] of tablet 00:00: mouth [place] 00 every Medical morning. Branch omeprazole 2021-10 Yes [id number] 40mg Take 1 [facility] 40 mg 1-07 capsule by [facility] of capsule 00:00: mouth in [place] 00 the Medical morning. Branch levothyroxi 2021-10 Yes [id number] 112ug Take 1 [facility] ne 112 mcg 1-07 tablet by [facility] of tablet 00:00: mouth [place] 00 every Medical morning. Branch omeprazole 2021-10 Yes [id number] 40mg Take 1 [facility] 40 mg 1-07 capsule by [facility] of capsule 00:00: mouth in [place] 00 the Medical morning. Branch levothyroxi 2021-10 Yes [id number] 112ug Take 1 [facility] 112 mcg 1-07 tablet by [facility] of tablet 00:00: mouth [place] 00 every Medical morning. Branch omeprazole 2021-10 Yes [id number] 40mg Take 1 [facility] 40 mg 1-07 capsule by [facility] of capsule 00:00: mouth in [place] 00 the Medical morning. Branch levothyroxi 2021-10 Yes [id number] 112ug Take 1 [facility] 112 mcg 1-07 tablet by [facility] of tablet 00:00: mouth [place] 00 every Medical morning. Branch omeprazole 2021-10 Yes [id number] 40mg Take 1 [facility] 40 mg 1-07 capsule by [facility] of capsule 00:00: mouth in [place] 00 the Medical morning. Branch levothyroxi 2021-10 Yes [id number] 112ug Take 1 [facility] 112 mcg 1-07 tablet by [facility] of tablet 00:00: mouth [place] 00 every Medical morning. Branch omeprazole 2021-10 Yes [id number] 40mg Take 1 [facility] 40 mg 1-07 capsule by [facility] of capsule 00:00: mouth in [place] 00 the Medical morning. Branch levothyroxi 2021-10 Yes [id number] 112ug Take 1 [facility] 112 mcg 1-07 tablet by [facility] of tablet 00:00: mouth [place] 00 every Medical morning. Branch omeprazole 2021-10 Yes [id number] 40mg Take 1 [facility] 40 mg 1-07 capsule by [facility] of capsule 00:00: mouth in [place] 00 the Medical morning. Branch levothyroxi 2021-10 Yes [id number] 112ug Take 1 [facility] ne 112 mcg 1-07 tablet by [facility] of tablet 00:00: mouth [place] 00 every Medical morning. Branch omeprazole 2021-10 Yes [id number] 40mg Take 1 [facility] 40 mg 1-07 capsule by [facility] of capsule 00:00: mouth in [place] 00 the Medical morning. Branch levothyroxi 2021-10 Yes [id number] 112ug Take 1 [facility] ne 112 mcg 1-07 tablet by [facility] of tablet 00:00: mouth [place] 00 every Medical morning. Branch omeprazole 2021-10 Yes [id number] 40mg Take 1 [facility] 40 mg 1-07 capsule by [facility] of capsule 00:00: mouth in [place] 00 the Medical morning. Branch levothyroxi 2021-10 Yes [id number] 112ug Take 1 [facility] 112 mcg 1-07 tablet by [facility]y of tablet 00:00: mouth [place] 00 every Medical morning. Branch omeprazole 2021-10 Yes [id number] 40mg Take 1 [facility] 40 mg 1-07 capsule by [facility] of capsule 00:00: mouth in [place] 00 the Medical morning. Branch levothyroxi 2021-10 Yes [id number] 112ug Take 1 [facility] 112 mcg 1-07 tablet by [facility]y of tablet 00:00: mouth [place] 00 every Medical morning. Branch omeprazole 2021-10 Yes [id number] 40mg Take 1 [facility] 40 mg 1-07 capsule by it[facility] of capsule 00:00: mouth in [place] 00 the Medical morning. Branch levothyroxi 2021-10 Yes [id number] 112ug Take 1 [facility] ne 112 mcg 1-07 tablet by [facility]y of tablet 00:00: mouth [place] 00 every Medical morning. Branch omeprazole 2021-10 Yes [id number] 40mg Take 1 [facility] 40 mg 1-07 capsule by [facility] of capsule 00:00: mouth in [place] 00 the Medical morning. Branch levothyroxi 2021-10 Yes [id number] 112ug Take 1 [facility] 112 mcg 1-07 tablet by [facility]y of tablet 00:00: mouth [place] 00 every Medical morning. Branch omeprazole 2021-10 Yes [id number] 40mg Take 1 [facility] 40 mg 1-07 capsule by [facility]y of capsule 00:00: mouth in [place] 00 the Medical morning. Branch levothyroxi 2021-10 Yes [id number] 112ug Take 1 [facility] 112 mcg 1-07 tablet by [facility]y of tablet 00:00: mouth [place] 00 every Medical morning. Branch omeprazole 2021-10 Yes [id number] 40mg Take 1 [facility] 40 mg 1-07 capsule by ity of capsule 00:00: mouth in [place] 00 the Medical morning. Branch levothyroxi 2021-10 Yes [id number] 112ug Take 1 [facility] ne 112 mcg 1-07 tablet by [facility]y of tablet 00:00: mouth [place] 00 every Medical morning. Branch omeprazole 2021-10 Yes [id number] 40mg Take 1 [facility] 40 mg 1-07 capsule by [facility]y of capsule 00:00: mouth in [place] 00 the Medical morning. Branch levothyroxi 2021-10 Yes [id number] 112ug Take 1 [facility] 112 mcg 1-07 tablet by [facility]y of tablet 00:00: mouth [place] 00 every Medical morning. [place] omeprazole 2021-10 Yes [id number] 40mg Take 1 [facility] 40 mg 1-07 capsule by [facility]y of capsule 00:00: mouth in [place] 00 the Medical morning. Branch levothyroxi 2021-10 Yes [id number] 112ug Take 1 [facility] ne 112 mcg 1-07 tablet by ity of tablet 00:00: mouth [place] 00 every Medical morning. [place] omeprazole 2021-10 Yes [id number] 40mg Take 1 [facility] 40 mg 1-07 capsule by ity of capsule 00:00: mouth in [place] 00 the Medical morning. [place] levothyroxi 2021-10 Yes [id number] 112ug Take 1 [facility] ne 112 mcg 1-07 tablet by ity of tablet 00:00: mouth [place] 00 every Medical morning. Branch omeprazole 2021-10 Yes [id number] 40mg Take 1 [facility] 40 mg 1-07 capsule by [facility] of capsule 00:00: mouth in [place] 00 the Medical morning. Branch levothyroxi 2021-10 Yes [id number] 112ug Take 1 [facility] ne 112 mcg 1-07 tablet by [facility]y of tablet 00:00: mouth [place] 00 every Medical morning. Branch omeprazole 2021-10 Yes [id number] 40mg Take 1 [facility] 40 mg 1-07 capsule by ity of capsule 00:00: mouth in [place] 00 the Medical morning. Branch levothyroxi 2021-10 Yes [id number] 112ug Take 1 [facility] ne 112 mcg 1-07 tablet by ity of tablet 00:00: mouth [place] 00 every Medical morning. Branch omeprazole 2021-10 Yes [id number] 40mg Take 1 [facility] 40 mg 1-07 capsule by ity of capsule 00:00: mouth in [place] 00 the Medical morning. Branch levothyroxi 2021-10 Yes [id number] 112ug Take 1 [facility] ne 112 mcg 1-07 tablet by ity of tablet 00:00: mouth [place] 00 every Medical morning. Branch omeprazole 2021-10 Yes [id number] 40mg Take 1 [facility] 40 mg 1-07 capsule by ity of capsule 00:00: mouth in [place] 00 the Medical morning. Branch levothyroxi 2021-10 Yes [id number] 112ug Take 1 [facility] ne 112 mcg 1-07 tablet by ity of tablet 00:00: mouth [place] 00 every Medical morning. Branch omeprazole 2021-10 Yes [id number] 40mg Take 1 [facility] 40 mg 1-07 capsule by [facility]y of capsule 00:00: mouth in [place] 00 the Medical morning. Branch levothyroxi 2021-10 Yes [id number] 112ug Take 1 [facility] ne 112 mcg 1-07 tablet by ity of tablet 00:00: mouth [place] 00 every Medical morning. Branch omeprazole 2021-10 Yes [id number] 40mg Take 1 [facility] 40 mg 1-07 capsule by ity of capsule 00:00: mouth in [place] 00 the Medical morning. Branch levothyroxi 2021-10 Yes [id number] 112ug Take 1 [facility] ne 112 mcg 1-07 tablet by ity of tablet 00:00: mouth [place] 00 every Medical morning. Branch omeprazole 2021-10 Yes [id number] 40mg Take 1 [facility] 40 mg 1-07 capsule by ity of capsule 00:00: mouth in [place] 00 the Medical morning. Branch levothyroxi 2021-10 Yes [id number] 112ug Take 1 [facility] ne 112 mcg 1-07 tablet by ity of tablet 00:00: mouth [place] 00 every Medical morning. Branch omeprazole 2021-10 Yes [id number] 40mg Take 1 [facility] 40 mg 1-07 capsule by ity of capsule 00:00: mouth in [place] 00 the Medical morning. Branch levothyroxi 2021-10 Yes [id number] 112ug Take 1 [facility] ne 112 mcg 1-07 tablet by ity of tablet 00:00: mouth [place] 00 every Medical morning. [place] omeprazole 2021-10 Yes [id number] 40mg Take 1 [facility] 40 mg 1-07 capsule by ity of capsule 00:00: mouth in [place] 00 the Medical morning. Branch levothyroxi 2021-10 Yes [id number] 112ug Take 1 [facility] ne 112 mcg 1-07 tablet by ity of tablet 00:00: mouth [place] 00 every Medical morning. Branch omeprazole 2021-10 Yes [id number] 40mg Take 1 [facility] 40 mg 1-07 capsule by ity of capsule 00:00: mouth in [place] 00 the Medical morning. Branch levothyroxi 2021-10 Yes [id number] 112ug Take 1 [facility] ne 112 mcg 1-07 tablet by ity of tablet 00:00: mouth [place] 00 every Medical morning. Branch omeprazole 2021-10 Yes [id number] 40mg Take 1 [facility] 40 mg 1-07 capsule by ity of capsule 00:00: mouth in [place] 00 the Medical morning. Branch levothyroxi 2021-10 Yes [id number] 112ug Take 1 [facility] ne 112 mcg 1-07 tablet by ity of tablet 00:00: mouth [place] 00 every Medical morning. [place] omeprazole 2021-10 Yes [id number] 40mg Take 1 [facility] 40 mg 1-07 capsule by ity of capsule 00:00: mouth in [place] 00 the Medical morning. Branch levothyroxi 2021-10 Yes [id number] 112ug Take 1 [facility] ne 112 mcg 1-07 tablet by ity of tablet 00:00: mouth [place] 00 every Medical morning. Branch omeprazole 2021-10 Yes [id number] 40mg Take 1 [facility] 40 mg 1-07 capsule by ity of capsule 00:00: mouth in [place] 00 the Medical morning. Branch levothyroxi 2021-10 Yes [id number] 112ug Take 1 [facility] ne 112 mcg 1-07 tablet by ity of tablet 00:00: mouth [place] 00 every Medical morning. Branch omeprazole 2021-10 Yes [id number] 40mg Take 1 [facility] 40 mg 1-07 capsule by ity of capsule 00:00: mouth in [place] 00 the Medical morning. Branch levothyroxi 2021-10 Yes [id number] 112ug Take 1 [facility] ne 112 mcg 1-07 tablet by ity of tablet 00:00: mouth [place] 00 every Medical morning. [place] omeprazole 2021-10 Yes [id number] 40mg Take 1 [facility] 40 mg 1-07 capsule by ity of capsule 00:00: mouth in [place] 00 the Medical morning. Branch levothyroxi 2021-10 Yes [id number] 112ug Take 1 [facility] ne 112 mcg 1-07 tablet by ity of tablet 00:00: mouth [place] 00 every Medical morning. Branch omeprazole 2021-10 Yes [id number] 40mg Take 1 [facility] 40 mg 1-07 capsule by ity of capsule 00:00: mouth in [place] 00 the Medical morning. Branch levothyroxi 2021-10 Yes [id number] 112ug Take 1 [facility] ne 112 mcg 1-07 tablet by ity of tablet 00:00: mouth [place] 00 every Medical morning. Branch omeprazole 2021-10 Yes [id number] 40mg Take 1 [facility] 40 mg 1-07 capsule by ity of capsule 00:00: mouth in [place] 00 the Medical morning. [place] levothyroxi 2021-10 Yes [id number] 112ug Take 1 [facility] ne 112 mcg 1-07 tablet by ity of tablet 00:00: mouth [place] 00 every Medical morning. Branch omeprazole 2021-10 Yes [id number] 40mg Take 1 [facility] 40 mg 1-07 capsule by ity of capsule 00:00: mouth in [place] 00 the Medical morning. Branch levothyroxi 2021-10 Yes [id number] 112ug Take 1 [facility] ne 112 mcg 1-07 tablet by ity of tablet 00:00: mouth [place] 00 every Medical morning. Branch omeprazole 2021-10 Yes [id number] 40mg Take 1 [facility] 40 mg 1-07 capsule by ity of capsule 00:00: mouth in [place] 00 the Medical morning. Branch levothyroxi 2021-10 Yes [id number] 112ug Take 1 [facility] ne 112 mcg 1-07 tablet by ity of tablet 00:00: mouth [place] 00 every Medical morning. Branch omeprazole 2021-10 Yes [id number] 40mg Take 1 [facility] 40 mg 1-07 capsule by ity of capsule 00:00: mouth in [place] 00 the Medical morning. Branch levothyroxi 2021-10 Yes [id number] 112ug Take 1 [facility] ne 112 mcg 1-07 tablet by ity of tablet 00:00: mouth [place] 00 every Medical morning. Branch omeprazole 2021-10 Yes [id number] 40mg Take 1 [facility] 40 mg 1-07 capsule by ity of capsule 00:00: mouth in [place] 00 the Medical morning. Branch levothyroxi 2021-10 Yes [id number] 112ug Take 1 [facility] ne 112 mcg 1-07 tablet by ity of tablet 00:00: mouth [place] 00 every Medical morning. Branch omeprazole 2021-10 Yes [id number] 40mg Take 1 [facility] 40 mg 1-07 capsule by ity of capsule 00:00: mouth in [place] 00 the Medical morning. Branch levothyroxi 2021-10 Yes [id number] 112ug Take 1 [facility] ne 112 mcg 1-07 tablet by ity of tablet 00:00: mouth [place] 00 every Medical morning. Branch omeprazole 2021-10 Yes [id number] 40mg Take 1 [facility] 40 mg 1-07 capsule by ity of capsule 00:00: mouth in [place] 00 the Medical morning. Branch levothyroxi 2021-10 Yes [id number] 112ug Take 1 [facility] ne 112 mcg 1-07 tablet by ity of tablet 00:00: mouth [place] 00 every Medical morning. Branch omeprazole 2021-10 Yes [id number] 40mg Take 1 [facility] 40 mg 1-07 capsule by ity of capsule 00:00: mouth in [place] 00 the Medical morning. Branch levothyroxi 2021-10 Yes [id number] 112ug Take 1 [facility] ne 112 mcg 1-07 tablet by ity of tablet 00:00: mouth [place] 00 every Medical morning. Branch omeprazole 2021-10 Yes [id number] 40mg Take 1 [facility] 40 mg 1-07 capsule by ity of capsule 00:00: mouth in [place] 00 the Medical morning. Branch levothyroxi 2021-10 Yes [id number] 112ug Take 1 [facility] ne 112 mcg 1-07 tablet by ity of tablet 00:00: mouth [place] 00 every Medical morning. Branch omeprazole 2021-10 Yes [id number] 40mg Take 1 [facility] 40 mg 1-07 capsule by ity of capsule 00:00: mouth in [place] 00 the Medical morning. Branch levothyroxi 2021-10 Yes [id number] 112ug Take 1 [facility] ne 112 mcg 1-07 tablet by ity of tablet 00:00: mouth [place] 00 every Medical morning. Branch omeprazole 2021-10 Yes [id number] 40mg Take 1 [facility] 40 mg 1-07 capsule by ity of capsule 00:00: mouth in [place] 00 the Medical morning. Branch levothyroxi 2021-10 Yes [id number] 112ug Take 1 [facility] ne 112 mcg 1-07 tablet by ity of tablet 00:00: mouth [place] 00 every Medical morning. Branch omeprazole 2021-10 Yes [id number] 40mg Take 1 [facility] 40 mg 1-07 capsule by ity of capsule 00:00: mouth in [place] 00 the Medical morning. Branch levothyroxi 2021-10 Yes [id number] 112ug Take 1 [facility] ne 112 mcg 1-07 tablet by ity of tablet 00:00: mouth [place] 00 every Medical morning. Branch omeprazole 2021-10 Yes [id number] 40mg Take 1 [facility] 40 mg 1-07 capsule by ity of capsule 00:00: mouth in [place] 00 the Medical morning. Branch levothyroxi 2021-10 Yes [id number] 112ug Take 1 [facility] ne 112 mcg 1-07 tablet by ity of tablet 00:00: mouth [place] 00 every Medical morning. Branch levothyroxi 2021-10 Yes [id number] 112ug Take 1 [facility] ne 112 mcg 1-07 tablet by ity of tablet 00:00: mouth [place] 00 every Medical morning. Branch levothyroxi 2021-10 Yes [id number] 112ug Take 1 [facility] ne 112 mcg 1-07 tablet by ity of tablet 00:00: mouth [place] 00 every Medical morning. Branch levothyroxi 2021-10 Yes [id number] 112ug Take 1 [facility] ne 112 mcg 1-07 tablet by ity of tablet 00:00: mouth [place] 00 every Medical morning. Branch levothyroxi 2021-10 Yes [id number] 112ug Take 1 [facility] ne 112 mcg 1-07 tablet by ity of tablet 00:00: mouth [place] 00 every Medical morning. Branch levothyroxi 2021-10 Yes [id number] 112ug Take 1 [facility] ne 112 mcg 1-07 tablet by ity of tablet 00:00: mouth [place] 00 every Medical morning. Branch levothyroxi 2021-10- No [id number] 112ug Take 1 [facility] ne 112 mcg 1-07 10-17 tablet by ity of tablet 00:00: 00:00 mouth [place] 00 :00 every Medical morning. Branch omeprazole 2021-10- No [id number] 40mg Take 1 [facility] 40 mg 1-07 09-13 capsule by [facility]y of capsule 00:00: 00:00 mouth in [place] 00 :00 the Medical morning. Branch omeprazole 2021- Yes [id number] 40mg Take 1 [facility] 40 mg 0-21 capsule by [facility] of capsule 00:00: mouth in [place] 00 the Medical morning. Branch omeprazole 2021-2021- No [id number] 40mg Take 1 [facility] 40 mg 0-21 11-07 capsule by ity of capsule 00:00: 00:00 mouth in [place] 00 :00 the Medical morning. Branch omeprazole 2021-2021- No [id number] 40mg Take 1 [facility] 40 mg 0-21 11-07 capsule by ity of capsule 00:00: 00:00 mouth in [place] 00 :00 the Medical morning. Branch omeprazole 2021-2021- No [id number] 40mg Take 1 [facility] 40 mg 0-21 11-07 capsule by ity of capsule 00:00: 00:00 mouth in [place] 00 :00 the Medical morning. Branch omeprazole 2021-2021- No [id number] 40mg Take 1 [facility] 40 mg 0-21 11-07 capsule by ity of capsule 00:00: 00:00 mouth in [place] 00 :00 the Medical morning. Branch hydrOXYchlo 2021-1 Yes 200mg Take 200 [facility] roQUINE 200 0-19 mg by [facility] 00:[facility] and [...] the evening. hydrOXYchlo 2022-1 Yes 200mg Take 1 [facility] vers roQUINE 200 0-19 tablet by [facility] mg tablet 00:00: [place] 00 the Medical morning Branch and 1 tablet in the evening. hydrOXYchlo 2022-1 Yes 200mg Take 1 [facility] vers roQUINE 200 0-19 tablet by [facility] mg tablet 00:00: mouth [place] 00 the Medical morning Branch and 1 tablet in the evening. hydrOXYchlo 2022-1 Yes 200mg Take 1 [facility] roQUINE 200 0-19 tablet by [facility] mg tablet 00:00: mouth [place] 00 the Medical morning Branch and 1 tablet in the evening. hydrOXYchlo 2022-1 Yes 200mg Take 1 [facility] roQUINE 200 0-19 tablet by [facility] mg tablet 00:00: mouth [place] 00 the Medical morning Branch and 1 tablet in the evening. hydrOXYchlo 2022-1 Yes 200mg Take 1 [facility] roQUINE 200 0-19 tablet by [facility] mg tablet 00:00: mouth [place] 00 the Medical morning Branch and 1 tablet in the evening. hydrOXYchlo 2022-1 Yes 200mg Take 1 [facility] roQUINE 200 0-19 tablet by [facility] mg tablet 00:00: mouth [place] 00 the Medical morning Branch and 1 tablet in the evening. hydrOXYchlo 2022-1 Yes 200mg Take 1 [facility] roQUINE 200 0-19 tablet by [facility] mg tablet 00:00: mouth [place] 00 the Medical morning Branch and 1 tablet in the evening. hydrOXYchlo 2022-1 Yes 200mg Take 1 [facility] roQUINE 200 0-19 tablet by [facility] mg tablet 00:00: mouth [place] 00 the Medical morning Branch and 1 tablet in the evening. hydrOXYchlo 2022-1 Yes 200mg Take 1 [facility] roQUINE 200 0-19 tablet by [facility] mg tablet 00:00: mouth [place] 00 the Medical morning Branch and 1 tablet in the evening. hydrOXYchlo 2022-1 Yes 200mg Take 1 [facility] roQUINE 200 0-19 tablet by [facility] mg tablet 00:00: mouth [place] 00 the Medical morning Branch and 1 tablet in the evening. hydrOXYchlo 2022-1 Yes 200mg Take 1 [facility] roQUINE 200 0-19 tablet by [facility] mg tablet 00:00: mouth [place] 00 the Medical morning Branch and 1 tablet in the evening. hydrOXYchlo 2022-1 Yes 200mg Take 1 [facility] roQUINE 200 0-19 tablet by [facility] mg tablet 00:00: mouth [place] 00 the Medical morning Branch and 1 tablet in the evening. hydrOXYchlo 2022-1 Yes 200mg Take 1 [facility] roQUINE 200 0-19 tablet by [facility] mg tablet 00:00: mouth [place] 00 the Medical morning Branch and 1 tablet in the evening. hydrOXYchlo 2022-1 Yes 200mg Take 1 [facility] roQUINE 200 0-19 tablet by [facility] mg tablet 00:00: mouth [place] 00 the Medical morning Branch and 1 tablet in the evening. hydrOXYchlo 2022-1 Yes 200mg Take 1 [facility] roQUINE 200 0-19 tablet by [facility] mg tablet 00:00: mouth [place] 00 the Medical morning Branch and 1 tablet in the evening. hydrOXYchlo 2022-1 Yes 200mg Take 1 [facility] roQUINE 200 0-19 tablet by [facility] mg tablet 00:00: mouth [place] 00 the Medical morning Branch and 1 tablet in the evening. hydrOXYchlo 2022-1 Yes 200mg Take 1 [facility] roQUINE 200 0-19 tablet by [facility] mg tablet 00:00: mouth [place] 00 the Medical morning Branch and 1 tablet in the evening. hydrOXYchlo 2022-1 Yes 200mg Take 1 [facility] roQUINE 200 0-19 tablet by [facility] mg tablet 00:00: mouth [place] 00 the Medical morning Branch and 1 tablet in the evening. hydrOXYchlo 2022-1 Yes 200mg Take 1 [facility] roQUINE 200 0-19 tablet by [facility] mg tablet 00:00: mouth [place] 00 the Medical morning Branch and 1 tablet in the evening. hydrOXYchlo 2022-1 Yes 200mg Take 1 [facility] roQUINE 200 0-19 tablet by [facility] mg tablet 00:00: mouth [place] 00 the Medical morning Branch and 1 tablet in the evening. hydrOXYchlo 2022-1 Yes 200mg Take 1 [facility] roQUINE 200 0-19 tablet by [facility] mg tablet 00:00: mouth [place] 00 the Medical morning Branch and 1 tablet in the evening. hydrOXYchlo 2022-1 Yes 200mg Take 1 [facility] roQUINE 200 0-19 tablet by [facility] mg tablet 00:00: mouth [place] 00 the Medical morning Branch and 1 tablet in the evening. hydrOXYchlo 2021-10- No 200mg Take 1 [facility] roQUINE 200 0-19 08-25 tablet by it y of mg tablet 00:00: 00:00 mouth in [place] 00 :00 the Medical morning Branch and 1 tablet in the evening. hydrOXYchlo 2021-10- No 200mg Take 1 [facility] [place] roQUINE 200 0-19 08-25 tablet by it y of mg tablet 00:00: 00:00 mouth in [place] 00 :00 the Medical morning Branch and 1 tablet in the evening. levothyroxi 2021-0 Yes [id number] 100ug Take 1 [facility] ne 100 mcg 9-07 tablet by [facility] of tablet 00:00: mouth [place] 00 every Medical morning. Branch levothyroxi 2021-0 Yes [id number] 100ug Take 1 [facility] ne 100 mcg 9-07 tablet by [facility] of tablet 00:00: mouth [place] 00 every Medical morning. Branch levothyroxi 2021-0 Yes [id number] 100ug Take 1 [facility] ne 100 mcg 9-07 tablet by it[facility] of tablet 00:00: mouth [place] 00 every Medical morning. Branch levothyroxi 2021-0 Yes [id number] 100ug Take 1 [facility] ne 100 mcg 9-07 tablet by ity of tablet 00:00: mouth [place] 00 every Medical morning. Branch levothyroxi 2021-0 Yes [id number] 100ug Take 1 [facility] ne 100 mcg 9-07 tablet by ity of tablet 00:00: mouth [place] 00 every Medical morning. Branch levothyroxi 2021-0 Yes [id number] 100ug Take 1 [facility] ne 100 mcg 9-07 tablet by ity of tablet 00:00: mouth [place] 00 every Medical morning. Branch levothyroxi 2021-0 Yes [id number] 100ug Take 1 [facility] ne 100 mcg 9-07 tablet by ity of tablet 00:00: mouth [place] 00 every Medical morning. Branch levothyroxi 2021-0 Yes [id number] 100ug Take 1 [facility] ne 100 mcg 9-07 tablet by ity of tablet 00:00: mouth [place] 00 every Medical morning. Branch levothyroxi 2021-0 Yes [id number] 100ug Take 1 [facility] ne 100 mcg 9-07 tablet by ity of tablet 00:00: mouth [place] 00 every Medical morning. Branch levothyroxi 2022-0 Yes [id number] 100ug Take 1 [facility] ne 100 mcg 9-07 tablet by ity of tablet 00:00: mouth [place] 00 every Medical morning. Branch levothyroxi Yes [id number] 100ug Take 1 [facility] ne 100 mcg 9-07 tablet by ity of tablet 00:00: mouth [place] 00 every Medical morning. Branch levothyroxi Yes [id number] 100ug Take 1 [facility] ne 100 mcg 9-07 tablet by ity of tablet 00:00: mouth [place] 00 every Medical morning. Branch levothyroxi 0 2021- No [id number] 100ug Take 1 [facility] ne 100 mcg 9-07 11-07 tablet by ity of tablet 00:00: 00:00 mouth [place] 00 :00 every Medical morning. Branch levothyroxi 2021-2021- No [id number] 100ug Take 1 [facility] ne 100 mcg 9-07 11-07 tablet by ity of tablet 00:00: 00:00 mouth [place] 00 :00 every Medical morning. Branch levothyroxi 2021- No [id number] 100ug Take 1 [facility] ne 100 mcg 9-07 11-07 tablet by ity of tablet 00:00: 00:00 mouth [place] 00 :00 every Medical morning. Branch levothyroxi 2021- No [id number] 100ug Take 1 [facility] ne 100 mcg 9-07 11-07 tablet by ity of tablet 00:00: 00:00 mouth [place] 00 :00 every Medical morning. Branch CETIRIZINE Yes Take by [facility] ers HCL (ZYRTEC 06-20 mouth. ity of ORAL) 09:59: [address] calcium Yes [facility] carbonate/v 06-20 ity of itamin D3 09:59: [place] (VITAMIN 20 Medical D-3 ORAL) [place] CETIRIZINE Yes Take by [facility] ers HCL (ZYRTEC 06-20 mouth. ity of ORAL) 09:59: [address] calcium Yes [facility] carbonate/v 06-20 ity of itamin D3 09:59: [place] (VITAMIN 20 Medical D-3 ORAL) [place] CETIRIZINE Yes Take by [facility] ers HCL (ZYRTEC 06-20 mouth. ity of ORAL) 09:59: [address] calcium Yes [facility] carbonate/v 9-06 ity of itamin D3 09:59: [place] (VITAMIN 20 Medical D-3 ORAL) [facility] Yes Take by Univ ers HCL (ZYRTEC 9-06 mouth. ity of ORAL) 09:59: [address] calcium Yes [facility] carbonate/v 9-06 ity of itamin D3 09:59: [place] (VITAMIN 20 Medical D-3 ORAL) [facility] Yes Take by Univ ers HCL (ZYRTEC 9-06 mouth. ity of ORAL) 09:59: [address] calcium Yes [facility] carbonate/v 9-06 ity of itamin D3 09:59: [place] (VITAMIN 20 Medical D-3 ORAL) [facility] Take by [facility] ers HCL (ZYRTEC 9-06 mouth. ity of ORAL) 09:59: [address] calcium Yes [facility] carbonate/v 9-06 ity of itamin D3 09:59: [place] (VITAMIN 20 Medical D-3 ORAL) [facility] Yes Take by Univ ers HCL (ZYRTEC 9-06 mouth. ity of ORAL) 09:59: [address] calcium Yes [facility] carbonate/v 9-06 ity of itamin D3 09:59: [place] (VITAMIN 20 Medical D-3 ORAL) [facility] Yes Take by Univ ers HCL (ZYRTEC 9-06 mouth. ity of ORAL) 09:59: [address] calcium Yes [facility] carbonate/v 9-06 ity of itamin D3 09:59: [place] (VITAMIN 20 Medical D-3 ORAL) [facility] Yes Take by Univ ers HCL (ZYRTEC 9-06 mouth. ity of ORAL) 09:59: [address] calcium Yes [facility] carbonate/v 9-06 ity of itamin D3 09:59: [place] (VITAMIN 20 Medical D-3 ORAL) [facility] Yes Take by Univ ers HCL (ZYRTEC 9-06 mouth. ity of ORAL) 09:59: [place] 20 Medical Branch calcium Yes [facility] carbonate/v 9-06 ity of itamin D3 09:59: [place] (VITAMIN 20 Medical D-3 ORAL) Branch CETIRIZINE Yes Take by [facility] ers HCL (ZYRTEC 9-06 mouth. ity of ORAL) 09:59: [place] 20 Medical Branch calcium Yes [facility] carbonate/v 9-06 ity of itamin D3 09:59: [place] (VITAMIN 20 Medical D-3 ORAL) Branch CETIRIZINE Yes Take by Univ ers HCL (ZYRTEC 9-06 mouth. ity of ORAL) 09:59: [place] 20 Medical Branch calcium Yes [facility] carbonate/v 9-06 ity of itamin D3 09:59: [place] (VITAMIN 20 Medical D-3 ORAL) Branch metoprolol Yes [id number] 50mg Take 1 U nivers succinate 9-06 tablet by ity o f XL 50 mg 24 00:00: mouth in [place] hr tablet 00 the Medical morning Branch and 1 tablet in the evening. montelukast Yes [id number] 10mg Take 1 [facility] (SINGULAIR) 9-06 tablet by ity of 10 mg 00:00: mouth in [place] tablet 00 the Medical morning. Branch raloxifene Yes [id number] 60mg Take 1 U nivers 60 mg 9-06 tablet by ity of tablet 00:00: mouth in [place] 00 the Medical morning. Branch metoprolol Yes [id number] 50mg Take 1 U nivers succinate 9-06 tablet by ity o f XL 50 mg 24 00:00: mouth in [place] hr tablet 00 the Medical morning Branch and 1 tablet in the evening. montelukast Yes [id number] 10mg Take 1 [facility] (SINGULAIR) 9-06 tablet by ity of 10 mg 00:00: mouth in [place] tablet 00 the Medical morning. Branch raloxifene 0 Yes [id number] 60mg Take 1 U nivers 60 mg 9-06 tablet by ity of tablet 00:00: mouth in [place] 00 the Medical morning. Branch metoprolol Yes [id number] 50mg Take 1 U nivers succinate 9-06 tablet by ity o f XL 50 mg 24 00:00: mouth in [place] hr tablet 00 the Medical morning Branch and 1 tablet in the evening. montelukast 2021-0 Yes [id number] 10mg Take 1 [facility] (SINGULAIR) 9-06 tablet by ity of 10 mg 00:00: mouth in [place] tablet 00 the Medical morning. Branch raloxifene 2021-0 Yes [id number] 60mg Take 1 U nivers 60 mg 9-06 tablet by ity of tablet 00:00: mouth in [place] 00 the Medical morning. Branch metoprolol 2021-0 Yes [id number] 50mg Take 1 U nivers succinate 9-06 tablet by ity o f XL 50 mg 24 00:00: mouth in [place] hr tablet 00 the Medical morning Branch and 1 tablet in the evening. montelukast 2021-0 Yes [id number] 10mg Take 1 [facility] (SINGULAIR) 9-06 tablet by ity of 10 mg 00:00: mouth in [place] tablet 00 the Medical morning. Branch raloxifene 2021-0 Yes [id number] 60mg Take 1 U nivers 60 mg 9-06 tablet by ity of tablet 00:00: mouth in [place] 00 the Medical morning. Branch metoprolol 2021-0 Yes [id number] 50mg Take 1 U nivers succinate 9-06 tablet by ity o f XL 50 mg 24 00:00: mouth in [place] hr tablet 00 the Medical morning Branch and 1 tablet in the evening. montelukast 2021-0 Yes [id number] 10mg Take 1 [facility] (SINGULAIR) 9-06 tablet by ity of 10 mg 00:00: mouth in [place] tablet 00 the Medical morning. Branch raloxifene 2021-0 Yes [id number] 60mg Take 1 U nivers 60 mg 9-06 tablet by ity of tablet 00:00: mouth in [place] 00 the Medical morning. Branch metoprolol 2021-0 Yes [id number] 50mg Take 1 U nivers succinate 9-06 tablet by ity o f XL 50 mg 24 00:00: mouth in [place] hr tablet 00 the Medical morning Branch and 1 tablet in the evening. montelukast 2-0 Yes [id number] 10mg Take 1 [facility] (SINGULAIR) 9-06 tablet by ity of 10 mg 00:00: mouth in [place] tablet 00 the Medical morning. Branch raloxifene 2021-0 Yes [id number] 60mg Take 1 U nivers 60 mg 9-06 tablet by ity of tablet 00:00: mouth in [place] 00 the Medical morning. Branch metoprolol 2021-0 Yes [id number] 50mg Take 1 U nivers succinate 9-06 tablet by ity o f XL 50 mg 24 00:00: mouth in [place] hr tablet 00 the Medical morning Branch and 1 tablet in the evening. montelukast 2021-0 Yes [id number] 10mg Take 1 [facility] (SINGULAIR) 9-06 tablet by ity of 10 mg 00:00: mouth in [place] tablet 00 the Medical morning. Branch raloxifene 2021-0 Yes [id number] 60mg Take 1 U nivers 60 mg 9-06 tablet by ity of tablet 00:00: mouth in [place] 00 the Medical morning. Branch metoprolol 2021-0 Yes [id number] 50mg Take 1 U nivers succinate 9-06 tablet by ity o f XL 50 mg 24 00:00: mouth in [place] hr tablet 00 the Medical morning Branch and 1 tablet in the evening. montelukast 2021-0 Yes [id number] 10mg Take 1 [facility] (SINGULAIR) 9-06 tablet by ity of 10 mg 00:00: mouth in [place] tablet 00 the Medical morning. Branch raloxifene 2021-0 Yes [id number] 60mg Take 1 U nivers 60 mg 9-06 tablet by ity of tablet 00:00: mouth in [place] 00 the Medical morning. Branch metoprolol 2021-0 Yes [id number] 50mg Take 1 U nivers succinate 9-06 tablet by ity o f XL 50 mg 24 00:00: mouth in [place] hr tablet 00 the Medical morning Branch and 1 tablet in the evening. montelukast 2021-0 Yes [id number] 10mg Take 1 [facility] (SINGULAIR) 9-06 tablet by ity of 10 mg 00:00: mouth in [place] tablet 00 the Medical morning. Branch raloxifene 2021-0 Yes [id number] 60mg Take 1 U nivers 60 mg 9-06 tablet by ity of tablet 00:00: mouth in [place] 00 the Medical morning. Branch metoprolol 2021-0 Yes [id number] 50mg Take 1 U nivers succinate 9-06 tablet by ity o f XL 50 mg 24 00:00: mouth in [place] hr tablet 00 the Medical morning Branch and 1 tablet in the evening. montelukast 2021-0 Yes [id number] 10mg Take 1 [facility] (SINGULAIR) 9-06 tablet by ity of 10 mg 00:00: mouth in [place] tablet 00 the Medical morning. Branch raloxifene 2021-0 Yes [id number] 60mg Take 1 U nivers 60 mg 9-06 tablet by ity of tablet 00:00: mouth in [place] 00 the Medical morning. Branch metoprolol 2021-0 Yes [id number] 50mg Take 1 U nivers succinate 9-06 tablet by ity o f XL 50 mg 24 00:00: mouth in [place] hr tablet 00 the Medical morning Branch and 1 tablet in the evening. montelukast 2021-0 Yes [id number] 10mg Take 1 [facility] (SINGULAIR) 9-06 tablet by ity of 10 mg 00:00: mouth in [place] tablet 00 the Medical morning. Branch raloxifene 2021-0 Yes [id number] 60mg Take 1 U nivers 60 mg 9-06 tablet by ity of tablet 00:00: mouth in [place] 00 the Medical morning. Branch metoprolol 2021-0 Yes [id number] 50mg Take 1 U nivers succinate 9-06 tablet by ity o f XL 50 mg 24 00:00: mouth in [place] hr tablet 00 the Medical morning Branch and 1 tablet in the evening. montelukast 2021-0 Yes [id number] 10mg Take 1 [facility] (SINGULAIR) 9-06 tablet by ity of 10 mg 00:00: mouth in [place] tablet 00 the Medical morning. Branch raloxifene 2021-0 Yes [id number] 60mg Take 1 U nivers 60 mg 9-06 tablet by ity of tablet 00:00: mouth in [place] 00 the Medical morning. Branch metoprolol 2021-0 Yes [id number] 50mg Take 1 U nivers succinate 9-06 tablet by ity o f XL 50 mg 24 00:00: mouth in [place] hr tablet 00 the Medical morning Branch and 1 tablet in the evening. montelukast 2-0 Yes [id number] 10mg Take 1 [facility] (SINGULAIR) 9-06 tablet by ity of 10 mg 00:00: mouth in [place] tablet 00 the Medical morning. Branch raloxifene 2022-0 Yes [id number] 60mg Take 1 U nivers 60 mg 9-06 tablet by ity of tablet 00:00: mouth in [place] 00 the Medical morning. Branch metoprolol 2021-0 Yes [id number] 50mg Take 1 U nivers succinate 9-06 tablet by ity o f XL 50 mg 24 00:00: mouth in [place] hr tablet 00 the Medical morning Branch and 1 tablet in the evening. montelukast 2021-0 Yes [id number] 10mg Take 1 [facility] (SINGULAIR) 9-06 tablet by ity of 10 mg 00:00: mouth in [place] tablet 00 the Medical morning. Branch raloxifene 2021-0 Yes [id number] 60mg Take 1 U nivers 60 mg 9-06 tablet by ity of tablet 00:00: mouth in [place] 00 the Medical morning. Branch metoprolol 2021-0 Yes [id number] 50mg Take 1 U nivers succinate 9-06 tablet by ity o f XL 50 mg 24 00:00: mouth in [place] hr tablet 00 the Medical morning Branch and 1 tablet in the evening. montelukast 2021-0 Yes [id number] 10mg Take 1 [facility] (SINGULAIR) 9-06 tablet by ity of 10 mg 00:00: mouth in [place] tablet 00 the Medical morning. Branch raloxifene 2021-0 Yes [id number] 60mg Take 1 U nivers 60 mg 9-06 tablet by ity of tablet 00:00: mouth in [place] 00 the Medical morning. Branch metoprolol 2021-0 Yes [id number] 50mg Take 1 U nivers succinate 9-06 tablet by ity o f XL 50 mg 24 00:00: mouth in [place] hr tablet 00 the Medical morning Branch and 1 tablet in the evening. montelukast 2021-0 Yes [id number] 10mg Take 1 [facility] (SINGULAIR) 9-06 tablet by ity of 10 mg 00:00: mouth in [place] tablet 00 the Medical morning. Branch raloxifene 2021-0 Yes [id number] 60mg Take 1 U nivers 60 mg 9-06 tablet by ity of tablet 00:00: mouth in [place] 00 the Medical morning. Branch metoprolol 2021-0 Yes [id number] 50mg Take 1 U nivers succinate 9-06 tablet by ity o f XL 50 mg 24 00:00: mouth in [place] hr tablet 00 the Medical morning Branch and 1 tablet in the evening. montelukast 2021-0 Yes [id number] 10mg Take 1 [facility] (SINGULAIR) 9-06 tablet by ity of 10 mg 00:00: mouth in [place] tablet 00 the Medical morning. Branch raloxifene 2021-0 Yes [id number] 60mg Take 1 U nivers 60 mg 9-06 tablet by ity of tablet 00:00: mouth in [place] 00 the Medical morning. Branch metoprolol 2021-0 Yes [id number] 50mg Take 1 U nivers succinate 9-06 tablet by ity o f XL 50 mg 24 00:00: mouth in [place] hr tablet 00 the Medical morning Branch and 1 tablet in the evening. montelukast 2021-0 Yes [id number] 10mg Take 1 [facility] (SINGULAIR) 9-06 tablet by ity of 10 mg 00:00: mouth in [place] tablet 00 the Medical morning. Branch raloxifene 2021-0 Yes [id number] 60mg Take 1 U nivers 60 mg 9-06 tablet by ity of tablet 00:00: mouth in [place] 00 the Medical morning. Branch metoprolol 2021-0 Yes [id number] 50mg Take 1 U nivers succinate 9-06 tablet by ity o f XL 50 mg 24 00:00: mouth in [place] hr tablet the Medical morning Branch and 1 tablet in the evening. montelukast 2021-0 Yes [id number] 10mg Take 1 [facility] (SINGULAIR) 9-06 tablet by ity of 10 mg 00:00: mouth in [place] tablet 00 the Medical morning. Branch raloxifene 2021-0 Yes [id number] 60mg Take 1 U nivers 60 mg 9-06 tablet by ity of tablet 00:00: mouth in [place] 00 the Medical morning. Branch montelukast 2021-0 Yes [id number] 10mg Take 1 [facility] (SINGULAIR) 9-06 tablet by ity of 10 mg 00:00: mouth in [place] tablet 00 the Medical morning. Branch raloxifene 2021-0 Yes [id number] 60mg Take 1 U nivers 60 mg 9-06 tablet by ity of tablet 00:00: mouth in [place] 00 the Medical morning. Branch montelukast 2021-0 Yes [id number] 10mg Take 1 [facility] (SINGULAIR) 9-06 tablet by ity of 10 mg 00:00: mouth in [place] tablet 00 the Medical morning. Branch raloxifene 2021-0 Yes [id number] 60mg Take 1 U nivers 60 mg 9-06 tablet by ity of tablet 00:00: mouth in [place] 00 the Medical morning. Branch montelukast 2021-0 Yes [id number] 10mg Take 1 [facility] (SINGULAIR) 9-06 tablet by ity of 10 mg 00:00: mouth in [place] tablet 00 the Medical morning. Branch raloxifene 2021-0 Yes [id number] 60mg Take 1 U nivers 60 mg 9-06 tablet by ity of tablet 00:00: mouth in [place] 00 the Medical morning. Branch montelukast 2021-0 Yes [id number] 10mg Take 1 [facility] (SINGULAIR) 9-06 tablet by ity of 10 mg 00:00: mouth in [place] tablet 00 the Medical morning. Branch raloxifene 2021-0 Yes [id number] 60mg Take 1 U nivers 60 mg 9-06 tablet by ity of tablet 00:00: mouth in [place] 00 the Medical morning. Branch montelukast 2021-0 Yes [id number] 10mg Take 1 [facility] (SINGULAIR) 9-06 tablet by ity of 10 mg 00:00: mouth in [place] tablet 00 the Medical morning. Branch raloxifene 2021-0 Yes [id number] 60mg Take 1 U nivers 60 mg 9-06 tablet by ity of tablet 00:00: mouth in [place] 00 the Medical morning. Branch montelukast 2021-0 Yes [id number] 10mg Take 1 [facility] (SINGULAIR) 9-06 tablet by ity of 10 mg 00:00: mouth in [place] tablet 00 the Medical morning. Branch raloxifene 2021-0 Yes [id number] 60mg Take 1 U nivers 60 mg 9-06 tablet by ity of tablet 00:00: mouth in [place] 00 the Medical morning. Branch montelukast 2-0 Yes [id number] 10mg Take 1 [facility] (SINGULAIR) 9-06 tablet by ity of 10 mg 00:00: mouth in [place] tablet 00 the Medical morning. Branch raloxifene 2-0 Yes [id number] 60mg Take 1 U nivers 60 mg 9-06 tablet by ity of tablet 00:00: mouth in [place] 00 the Medical morning. Branch montelukast 2021-0 Yes [id number] 10mg Take 1 [facility] (SINGULAIR) 9-06 tablet by ity of 10 mg 00:00: mouth in [place] tablet 00 the Medical morning. Branch raloxifene 2021-0 Yes [id number] 60mg Take 1 U nivers 60 mg 9-06 tablet by ity of tablet 00:00: mouth in [place] 00 the Medical morning. Branch montelukast 2021-0 Yes [id number] 10mg Take 1 [facility] (SINGULAIR) 9-06 tablet by ity of 10 mg 00:00: mouth in [place] tablet 00 the Medical morning. Branch raloxifene 2021-0 Yes [id number] 60mg Take 1 U nivers 60 mg 9-06 tablet by ity of tablet 00:00: mouth in [place] 00 the Medical morning. Branch raloxifene 2021-0 Yes [id number] 60mg Take 1 U nivers 60 mg 9-06 tablet by ity of tablet 00:00: mouth in [place] 00 the Medical morning. Branch raloxifene 2021-0 Yes [id number] 60mg Take 1 U nivers 60 mg 9-06 tablet by ity of tablet 00:00: mouth in [place] 00 the Medical morning. Branch raloxifene 2021-0 Yes [id number] 60mg Take 1 U nivers 60 mg 9-06 tablet by ity of tablet 00:00: mouth in [place] 00 the Medical morning. Branch raloxifene 2021-0 Yes [id number] 60mg Take 1 U nivers 60 mg 9-06 tablet by ity of tablet 00:00: mouth in [place] 00 the Medical morning. Branch raloxifene 2021-0 Yes [id number] 60mg Take 1 U nivers 60 mg 9-06 tablet by ity of tablet 00:00: mouth in [place] 00 the Medical morning. Branch raloxifene 2-0 Yes [id number] 60mg Take 1 U nivers 60 mg 9-06 tablet by ity of tablet 00:00: mouth in [place] 00 the Medical morning. Branch raloxifene 2-0 3- No [id number] 60mg Take 1 [facility] 60 mg 9-06 04-28 tablet by ity of tablet 00:00: 00:00 mouth in [place] 00 :00 the Medical morning. Branch montelukast 2021-0 2023- No [id number] 10mg Take 1 [facility] (SINGULAIR) 06-2010 tablet by it y of 10 mg 00:00: 00:00 mouth in [place] tablet 00 :00 the Medical morning. Branch montelukast 3- No [id number] 10mg Take 1 [facility] (SINGULAIR) 06-2010 tablet by it y of 10 mg 00:00: 00:00 mouth in [place] tablet 00 :00 the Medical morning. Branch metoprolol 2021- No [id number] 50mg Take 1 [facility] succinate 06-20 tablet by ity of XL 50 mg 24 00:00: 00:00 mouth in [place] hr tablet 00 :00 the Medical morning Branch and 1 tablet in the evening. omeprazole Yes [id number] 40mg Take 1 [facility] 40 mg 6-29 capsule by ity of capsule 00:00: mouth [place] 00 daily. Medical Branch omeprazole 0 Yes [id number] 40mg Take 1 [facility] 40 mg 6-29 capsule by ity of capsule 00:00: mouth [place] 00 daily. Medical Branch omeprazole 0 Yes [id number] 40mg Take 1 [facility] 40 mg 6-29 capsule by ity of capsule 00:00: mouth [place] 00 daily. Medical Branch omeprazole 0 Yes [id number] 40mg Take 1 [facility] 40 mg 6-29 capsule by ity of capsule 00:00: mouth [place] 00 daily. Medical Branch omeprazole 0 Yes [id number] 40mg Take 1 [facility] 40 mg 6-29 capsule by ity of capsule 00:00: mouth [place] 00 daily. Medical Branch omeprazole 2021-0 Yes [id number] 40mg Take 1 [facility] 40 mg 6-29 capsule by ity of capsule 00:00: mouth [place] 00 daily. Medical Branch omeprazole 2021-0 Yes [id number] 40mg Take 1 [facility] 40 mg 6-29 capsule by ity of capsule 00:00: mouth [place] 00 daily. Medical Branch omeprazole 2021-0 Yes [id number] 40mg Take 1 [facility] 40 mg 6-29 capsule by ity of capsule 00:00: mouth [place] 00 daily. Medical Branch omeprazole 2021-0 Yes [id number] 40mg Take 1 [facility] 40 mg 6-29 capsule by ity of capsule 00:00: mouth [place] 00 daily. Medical Branch omeprazole 2022-0 Yes [id number] 40mg Take 1 [facility] 40 mg 6-29 capsule by ity of capsule 00:00: mouth [place] 00 daily. Medical Branch omeprazole 2022-0 Yes [id number] 40mg Take 1 [facility] 40 mg 6-29 capsule by ity of capsule 00:00: mouth [place] 00 daily. Medical Branch omeprazole 2-0 2022- No [id number] 40mg Take 1 [facility] 40 mg 6-29 [...] mcg Branch (2,000 unit) capsule aspirin 81 2022-0 Yes 81mg Take 81 [...] 5-03 by mouth ity of 10:26: daily. [place] [facility] Branch rosuvastati Yes TAKE 1 Univ [...] 5-03 by mouth ity of 10:26: daily. [place] [facility] Branch rosuvastati Yes TAKE 1 Univ [...] 5-03 by mouth ity of 10:26: daily. [place] [address] Medical Branch rosuvastati Yes TAKE 1 Univ [...] 5-03 by mouth ity of 10:26: daily. [place] [address] Medical Branch amLODIPine 0 Yes 2.5mg Take 2.5 Un [place] 2.5 mg 5-03 mg by ity of tablet 10:26: mouth [place] 41 daily. Medical Branch aspirin 81 2021-0 Yes 81mg Take 81 mg U nivers mg tablet 5-03 by mouth ity of 10:26: daily. [place] [address] Medical Branch amLODIPine 0 Yes 2.5mg Take 2.5 [place] 2.5 mg 5-03 mg by ity of tablet 10:26: mouth [place] 41 daily. Medical Branch aspirin 81 2021-0 Yes 81mg Take 81 mg U nivers mg tablet 5-03 by mouth ity of 10:26: daily. [place] [address] Medical Branch amLODIPine 2021-0 Yes 2.5mg Take 2.5 [place] 2.5 mg 5-03 mg by ity of tablet 10:26: mouth [place] 41 daily. Medical Branch aspirin 81 2021-0 Yes 81mg Take 81 mg U nivers mg tablet 5-03 by mouth ity of 10:26: daily. [place] [address] Medical Branch amLODIPine 2021-0 Yes 2.5mg Take 2.5 [place] 2.5 mg 5-03 mg by ity of tablet 10:26: mouth [place] 41 daily. Medical Branch aspirin 81 2021-0 Yes 81mg Take 81 mg U nivers mg tablet 5-03 by mouth ity of 10:26: daily. [place] [address] Medical Branch amLODIPine 2021-0 Yes 2.5mg Take 2.5 [place] 2.5 mg 5-03 mg by ity of tablet 10:26: mouth [place] 41 daily. Medical Branch aspirin 81 2021-0 Yes 81mg Take 81 mg U nivers mg tablet 5-03 by mouth ity of 10:26: daily. [place] [address] Medical Branch amLODIPine 2021-0 Yes 2.5mg Take 2.5 [place] 2.5 mg 5-03 mg by ity of tablet 10:26: mouth [place] 41 daily. Medical Branch Magnesium 2-0 Yes 500mg Take 500 Uni vers Oxide [...] by ity of mg Tab 00:00: mouth. [place] [facility] Magnesium 2022-0 Yes 500mg Take 500 Uni vers Oxide 500 2-14 mg by ity of mg Tab 00:00: mouth. [place] [facility] Magnesium 2022-0 Yes 500mg Take 500 Uni vers Oxide 500 2-14 mg by ity of mg Tab 00:00: mouth. [place] [facility] Magnesium 2022-0 Yes 500mg Take 500 Uni vers Oxide 500 2-14 mg by ity of mg Tab 00:00: mouth. [place] [facility] Magnesium 2022-0 Yes 500mg Take 500 Uni vers Oxide 500 2-14 mg by ity of mg Tab 00:00: mouth. [place] [facility] Magnesium 2022-0 Yes 500mg Take 500 Uni vers Oxide 500 2-14 mg by ity of mg Tab 00:00: mouth. [place] [facility] Magnesium 2022-0 Yes 500mg Take 500 Uni vers Oxide 500 2-14 mg by ity of mg Tab 00:00: mouth. [place] [facility] Magnesium 2022-0 Yes 500mg Take 500 Uni vers Oxide 500 2-14 mg by ity of mg Tab 00:00: mouth. [place] [facility] Magnesium 2022-0 Yes 500mg Take 500 Uni vers Oxide 500 2-14 mg by ity of mg Tab 00:00: mouth. [place] [facility] Magnesium 2022-0 Yes 500mg Take 500 Uni vers Oxide 500 2-14 mg by ity of mg Tab 00:00: mouth. [place] [facility] Magnesium 2022-0 Yes 500mg Take 500 Uni vers Oxide 500 2-14 mg by ity of mg Tab 00:00: mouth. [place] [facility] Magnesium 2022-0 Yes 500mg Take 500 Uni vers Oxide 500 2-14 mg by ity of mg Tab 00:00: mouth. [place] [facility] Magnesium 2022-0 Yes 500mg Take 500 Uni vers Oxide 500 2-14 mg by ity of mg Tab 00:00: mouth. [place] [facility] Magnesium 2022-0 Yes 500mg Take 500 Uni vers Oxide 500 2-14 mg by ity of mg Tab 00:00: mouth. [place] [address] Medical Branch Magnesium 2022-0 Yes 500mg Take 500 Uni vers Oxide 500 2-14 mg by ity of mg Tab 00:00: mouth. [place] [address] Medical Branch Magnesium 2022-0 Yes 500mg Take 500 Uni vers Oxide 500 2-14 mg by ity of mg Tab 00:00: mouth. [place] [facility] Magnesium 2022-0 Yes 500mg Take 500 Uni vers Oxide 500 2-14 mg by ity of mg Tab 00:00: mouth. [place] [facility] Magnesium 2022-0 Yes 500mg Take 500 Uni vers Oxide 500 2-14 mg by ity of mg Tab 00:00: mouth. [place] [facility] Magnesium 2022-0 Yes 500mg Take 500 Uni vers Oxide 500 2-14 mg by ity of mg Tab 00:00: mouth. [place] [facility] Magnesium 2022-0 Yes 500mg Take 500 Uni vers Oxide 500 2-14 mg by ity of mg Tab 00:00: mouth. [place] [facility] Magnesium 2022-0 Yes 500mg Take 500 Uni vers Oxide 500 2-14 mg by ity of mg Tab 00:00: mouth. [place] [facility] Magnesium 2022-0 Yes 500mg Take 500 Uni vers Oxide 500 2-14 mg by ity of mg Tab 00:00: mouth. [place] [facility] Magnesium 2022-0 Yes 500mg Take 500 Uni vers Oxide 500 2-14 mg by ity of mg Tab 00:00: mouth. [place] [facility] Magnesium 2022-0 Yes 500mg Take 500 Uni vers Oxide 500 2-14 mg by ity of mg Tab 00:00: mouth. [place] [facility] Magnesium 2022-0 2023- No 500mg Take 500 Un sarah Oxide 500 2-14 02-10 mg by ity of mg Tab 00:00: 00:00 mouth. [place] 00 :00 [facility] Branch Magnesium 2022-0 2023- No 500mg Take 500 Un [place] Oxide 500 2-14 02-10 mg by ity of mg Tab 00:00: 00:00 mouth. [place] 00 :00 Medical Branch empaglifloz 2020- Yes 1{tbl} Take [...] 00:00: mouth [place] 10 mg 00 daily. [facility] Branch empaglifloz 2020-10- No 1{tbl} Take 1 U nivers in 2-24 02-10 tablet by ity of (JARDIANCE) 00:[place] :00 daily. [facility] empaglifloz 2020-10- No 1{tbl} Take 1 U nivers in 2-24 02-10 tablet by ity of (JARDIANCE) 00:00[place] :00 daily. [facility] clopidogreL 2020-10 Yes 75mg Take 75 mg Univers 75 mg 2-16 by mouth ity of tablet 00:00: daily. [place] [facility] clopidogreL 2020-10 Yes 75mg Take 75 mg Univers 75 mg 2-16 by mouth ity of tablet 00:00: daily. [place] [facility] clopidogreL 2020- Yes 75mg Take 75 mg Univers 75 mg 2-16 by mouth ity of tablet 00:00: daily. [place] [facility] clopidogreL 2020- Yes 75mg Take 75 mg Univers 75 mg 2-16 by mouth ity of tablet 00:00: daily. [place] [facility] clopidogreL 2020- Yes 75mg Take 75 mg Univers 75 mg 2-16 by mouth ity of tablet 00:00: daily. [place] [facility] clopidogreL 2020- Yes 75mg Take 75 mg Univers 75 mg 2-16 by mouth ity of tablet 00:00: daily. [place] [facility] clopidogreL 2020- Yes 75mg Take 75 mg Univers 75 mg 2-16 by mouth ity of tablet 00:00: daily. [address] clopidogreL 2020- Yes 75mg Take 75 mg Univers 75 mg 2-16 by mouth ity of tablet 00:00: daily. [address] clopidogreL 2020- Yes 75mg Take 75 mg Univers 75 mg 2-16 by mouth ity of tablet 00:00: daily. [address] clopidogreL 2020- Yes 75mg Take 75 mg Univers 75 mg 2-16 by mouth ity of tablet 00:00: daily. [address] clopidogreL 2020- Yes 75mg Take 75 mg Univers 75 mg 2-16 by mouth ity of tablet 00:00: daily. [address] clopidogreL 2020- Yes 75mg Take 75 mg Univers 75 mg 2-16 by mouth ity of tablet 00:00: daily. [address] clopidogreL 2020- Yes 75mg Take 75 mg Univers 75 mg 2-16 by mouth ity of tablet 00:00: daily. [address] clopidogreL 2020- Yes 75mg Take 75 mg Univers 75 mg 2-16 by mouth ity of tablet 00:00: daily. [address] clopidogreL 2020- Yes 75mg Take 75 mg Univers 75 mg 2-16 by mouth ity of tablet 00:00: daily. [address] clopidogreL 2020- Yes 75mg Take 75 mg Univers 75 mg 2-16 by mouth ity of tablet 00:00: daily. [address] clopidogreL 2020- Yes 75mg Take 75 mg Univers 75 mg 2-16 by mouth ity of tablet 00:00: daily. [address] clopidogreL 2020- Yes 75mg Take 75 mg Univers 75 mg 2-16 by mouth ity of tablet 00:00: daily. [address] clopidogreL 2020- Yes 75mg Take 75 mg Univers 75 mg 2-16 by mouth ity of tablet 00:00: daily. [address] clopidogreL 2020-1 Yes 75mg Take 75 mg Univers 75 mg 2-16 by mouth ity of tablet 00:00: daily. [address] clopidogreL 2020- Yes 75mg Take 75 mg Univers 75 mg 2-16 by mouth ity of tablet 00:00: daily. [address] clopidogreL 2020-1 Yes 75mg Take 75 mg Univers 75 mg 2-16 by mouth ity of tablet 00:00: daily. [address] clopidogreL 2020-1 Yes 75mg Take 75 mg Univers 75 mg 2-16 by mouth ity of tablet 00:00: daily. [place] [facility] clopidogreL 2020- Yes 75mg Take 75 mg Univers 75 mg 2-16 by mouth ity of tablet 00:00: daily. [place] [facility] clopidogreL 2020- Yes 75mg Take 75 mg Univers 75 mg 2-16 by mouth ity of tablet 00:00: daily. [place] [facility] clopidogreL 2020- Yes 75mg Take 75 mg Univers 75 mg 2-16 by mouth ity of tablet 00:00: daily. [place] [facility] clopidogreL 2020- Yes 75mg Take 75 mg Univers 75 mg 2-16 by mouth ity of tablet 00:00: daily. [address] clopidogreL 2020- Yes 75mg Take 75 mg Univers 75 mg 2-16 by mouth ity of tablet 00:00: daily. [address] clopidogreL 2020- Yes 75mg Take 75 mg Univers 75 mg 2-16 by mouth ity of tablet 00:00: daily. [address] clopidogreL 2020- Yes 75mg Take 75 mg Univers 75 mg 2-16 by mouth ity of tablet 00:00: daily. [address] clopidogreL 2020- Yes 75mg Take 75 mg Univers 75 mg 2-16 by mouth ity of tablet 00:00: daily. [address] clopidogreL 2020- Yes 75mg Take 75 mg Univers 75 mg 2-16 by mouth ity of tablet 00:00: daily. [address] clopidogreL 2020-1 Yes 75mg Take 75 mg Univers 75 mg 2-16 by mouth ity of tablet 00:00: daily. [address] clopidogreL 2020-1 Yes 75mg Take 75 mg Univers 75 mg 2-16 by mouth ity of tablet 00:00: daily. [address] clopidogreL 2020-1 Yes 75mg Take 75 mg Univers 75 mg 2-16 by mouth ity of tablet 00:00: daily. [address] clopidogreL 2020-1 Yes 75mg Take 75 mg Univers 75 mg 2-16 by mouth ity of tablet 00:00: daily. [address] clopidogreL 2020-1 Yes 75mg Take 75 mg Univers 75 mg 2-16 by mouth ity of tablet 00:00: daily. [address] clopidogreL 2020- Yes 75mg Take 75 mg Univers 75 mg 2-16 by mouth ity of tablet 00:00: daily. [place] [facility] clopidogreL 2020- Yes 75mg Take 75 mg Univers 75 mg 2-16 by mouth ity of tablet 00:00: daily. [place] [facility] clopidogreL 2020- Yes 75mg Take 75 mg Univers 75 mg 2-16 by mouth ity of tablet 00:00: daily. [place] [facility] clopidogreL 2020- Yes 75mg Take 75 mg Univers 75 mg 2-16 by mouth ity of tablet 00:00: daily. [place] [facility] clopidogreL 2020- Yes 75mg Take 75 mg Univers 75 mg 2-16 by mouth ity of tablet 00:00: daily. [address] clopidogreL 2020- Yes 75mg Take 75 mg Univers 75 mg 2-16 by mouth ity of tablet 00:00: daily. [address] clopidogreL 2020- Yes 75mg Take 75 mg Univers 75 mg 2-16 by mouth ity of tablet 00:00: daily. [address] clopidogreL 2020-1 Yes 75mg Take 75 mg Univers 75 mg 2-16 by mouth ity of tablet 00:00: daily. [address] clopidogreL 2020- Yes 75mg Take 75 mg Univers 75 mg 2-16 by mouth ity of tablet 00:00: daily. [address] clopidogreL 2020- Yes 75mg Take 75 mg Univers 75 mg 2-16 by mouth ity of tablet 00:00: daily. [address] clopidogreL 2021- Yes 75mg Take 75 mg Univers 75 mg 2-16 by mouth ity of tablet 00:00: daily. [address] clopidogreL 2020-1 Yes 75mg Take 75 mg Univers 75 mg 2-16 by mouth ity of tablet 00:00: daily. [address] clopidogreL 2020-1 Yes 75mg Take 75 mg Univers 75 mg 2-16 by mouth ity of tablet 00:00: daily. [address] clopidogreL 202-1 Yes 75mg Take 75 mg Univers 75 mg 2-16 by mouth ity of tablet 00:00: daily. [address] clopidogreL 2021-1 Yes 75mg Take 1 Univ ers 75 mg 2-16 tablet by ity of tablet 00:00: mouth in [place] 00 the Medical morning. Branch clopidogreL 2021-1 Yes 75mg Take 1 Univ ers 75 mg 2-16 tablet by ity of tablet 00:00: mouth in [place] 00 the Medical morning. Branch clopidogreL 2021-1 Yes 75mg Take 1 Univ ers 75 mg 2-16 tablet by ity of tablet 00:00: mouth in [place] 00 the Medical morning. Branch clopidogreL 2021-1 Yes 75mg Take 1 Univ ers 75 mg 2-16 tablet by ity of tablet 00:00: mouth in [place] 00 the Medical morning. Branch clopidogreL 2021-1 Yes 75mg Take 1 Univ ers 75 mg 2-16 tablet by ity of tablet 00:00: mouth in [place] 00 the Medical morning. Branch clopidogreL 2021-1 Yes 75mg Take 1 Univ ers 75 mg 2-16 tablet by ity of tablet 00:00: mouth in [place] the Medical morning. Branch clopidogreL 2021-1 Yes 75mg Take 1 Univ ers 75 mg 2-16 tablet by ity of tablet 00:00: mouth in [place] the Medical morning. Branch clopidogreL 2021-1 Yes 75mg Take 1 Univ ers 75 mg 2-16 tablet by ity of tablet 00:00: mouth in [place] the Medical morning. Branch clopidogreL 2021-1 Yes 75mg Take 1 Univ ers 75 mg 2-16 tablet by ity of tablet 00:00: mouth in [place] the Medical morning. Branch clopidogreL 2021-1 Yes 75mg Take 1 Univ ers 75 mg 2-16 tablet by ity of tablet 00:00: mouth in [place] the Medical morning. Branch clopidogreL 2021-1 Yes 75mg Take 1 Univ ers 75 mg 2-16 tablet by ity of tablet 00:00: mouth in [place] 00 the Medical morning. Branch clopidogreL 2021-1 Yes 75mg Take 1 Univ ers 75 mg 2-16 tablet by ity of tablet 00:00: mouth in [place] 00 the Medical morning. Branch clopidogreL 2021-1 Yes 75mg Take 1 Univ ers 75 mg 2-16 tablet by ity of tablet 00:00: mouth in [place] 00 the Medical morning. Branch clopidogreL 2021-1 Yes 75mg Take 1 Univ ers 75 mg 2-16 tablet by ity of tablet 00:00: mouth in [place] 00 the Medical morning. Branch clopidogreL 2021-1 Yes 75mg Take 1 Univ ers 75 mg 2-16 tablet by ity of tablet 00:00: mouth in [place] 00 the Medical morning. Branch clopidogreL 2021-1 Yes 75mg Take 1 Univ ers 75 mg 2-16 tablet by ity of tablet 00:00: mouth in [place] 00 the Medical morning. Branch clopidogreL 2021-1 Yes 75mg Take 1 Univ ers 75 mg 2-16 tablet by ity of tablet 00:00: mouth in [place] the Medical morning. Branch clopidogreL 2021-1 Yes 75mg Take 1 Univ ers 75 mg 2-16 tablet by ity of tablet 00:00: mouth in [place] 00 the Medical morning. Branch clopidogreL 2021-1 Yes 75mg Take 1 Univ ers 75 mg 2-16 tablet by ity of tablet 00:00: mouth in [place] the Medical morning. Branch clopidogreL 2021-1 Yes 75mg Take 1 Univ ers 75 mg 2-16 tablet by ity of tablet 00:00: mouth in [place] the Medical morning. Branch clopidogreL 2021-1 Yes 75mg Take 1 Univ ers 75 mg 2-16 tablet by ity of tablet 00:00: mouth in [place] the Medical morning. Branch clopidogreL 2021-1 Yes 75mg Take 1 Univ ers 75 mg 2-16 tablet by ity of tablet 00:00: mouth in [place] the Medical morning. Branch clopidogreL 2021-1 Yes 75mg Take 1 Univ ers 75 mg 2-16 tablet by ity of tablet 00:00: mouth in [place] the Medical morning. Branch clopidogreL 2021-1 Yes 75mg Take 1 Univ ers 75 mg 2-16 tablet by ity of tablet 00:00: mouth in [place] the Medical morning. Branch clopidogreL 2021-1 Yes 75mg Take 1 Univ ers 75 mg 2-16 tablet by ity of tablet 00:00: mouth in [place] 00 the Medical morning. Branch clopidogreL 2021-1 Yes 75mg Take 1 Univ ers 75 mg 2-16 tablet by ity of tablet 00:00: mouth in [place] 00 the Medical morning. Branch clopidogreL 2021-1 Yes 75mg Take 1 Univ ers 75 mg 2-16 tablet by ity of tablet 00:00: mouth in [place] 00 the Medical morning. Branch clopidogreL 2021-1 Yes 75mg Take 1 Univ ers 75 mg 2-16 tablet by ity of tablet 00:00: mouth in [place] 00 the Medical morning. Branch clopidogreL 2021-1 Yes 75mg Take 1 Univ ers 75 mg 2-16 tablet by ity of tablet 00:00: mouth in [place] 00 the Medical morning. Branch clopidogreL 2021-1 Yes 75mg Take 1 Univ ers 75 mg 2-16 tablet by ity of tablet 00:00: mouth in [place] 00 the Medical morning. Branch clopidogreL 2021-1 Yes 75mg Take 1 Univ ers 75 mg 2-16 tablet by ity of tablet 00:00: mouth in [place] the Medical morning. Branch clopidogreL 2021-1 Yes 75mg Take 1 Univ ers 75 mg 2-16 tablet by ity of tablet 00:00: mouth in [place] 00 the Medical morning. Branch clopidogreL 2021-1 Yes 75mg Take 1 Univ ers 75 mg 2-16 tablet by ity of tablet 00:00: mouth in [place] 00 the Medical morning. Branch clopidogreL 2021-1 Yes 75mg Take 1 Univ ers 75 mg 2-16 tablet by ity of tablet 00:00: mouth in [place] the Medical morning. Branch clopidogreL 2021-1 Yes 75mg Take 1 Univ ers 75 mg 2-16 tablet by ity of tablet 00:00: mouth in [place] the Medical morning. Branch clopidogreL 2021-1 Yes 75mg Take 1 Univ ers 75 mg 2-16 tablet by ity of tablet 00:00: mouth in [place] the Medical morning. Branch clopidogreL 2021-1 Yes 75mg Take 1 Univ ers 75 mg 2-16 tablet by ity of tablet 00:00: mouth in [place] the Medical morning. Branch clopidogreL 2021-1 Yes 75mg Take 1 Univ ers 75 mg 2-16 tablet by ity of tablet 00:00: mouth in [place] the Medical morning. Branch clopidogreL 2021-1 Yes 75mg Take 1 Univ ers 75 mg 2-16 tablet by ity of tablet 00:00: mouth in [place] the Medical morning. Branch Bupivicaine Bupivicaine 2020-0 No Common [place] 3-16 Spirit 00:00: - [facility] 00 [facility] Kenalog Kenalog 2020-0 No 40mg Common (Triamcinol (Triamcinol 3-16 S pirit one) one) 00:00: - [facility] 00 [facility] Bupivicaine Bupivicaine 2020-0 No Common [place] 3-16 Spirit 00:00: - [facility] Kenalog Kenalog 2020-0 No 40mg Common (Triamcinol (Triamcinol 3-16 S pirit one) one) 00:00: - [facility] 00 [facility] Bupivicaine Bupivicaine 2020-0 No 2.5mg Common [place] 3-16 Spirit 00:00: - [facility] 00 [facility] Kenalog Kenalog 2020-0 No 40mg Common (Triamcinol (Triamcinol 3-16 S pirit one) one) 00:00: - [facility] 00 [facility] Bupivicaine Bupivicaine 2020-0 No 5mL Common [place] 4-09 Spirit 00:00: - [facility] 00 [facility] Kenalog Kenalog 2020-0 No 40mg Common (Triamcinol (Triamcinol 4-09 S pirit one) one) 00:00: - [facility] Bupivicaine Bupivicaine 2020-0 No 5mL Common [place] 4-09 Spirit 00:00: - [facility] 00 [facility] Kenalog Kenalog 2019-0 No 40mg Common (Triamcinol (Triamcinol 4-09 S pirit one) one) 00:00: - [facility] 00 [facility] Bupivicaine Bupivicaine 2020-0 No 5mL Common [place] 4-09 Spirit 00:00: - [facility] 00 [facility] Kenalog Kenalog 2020-0 No 40mg Common (Triamcinol (Triamcinol 4-09 S pirit one) one) 00:00: - [facility] 00 [facility] omeprazole 2020-0 Yes 40mg QD Take 40 [...] D3) 50 mcg (2,000 unit) capsule capsule levothyroxi 2020-0 Yes 112ug QD Take 112 [...] MG 10:49: daily. [facility] tablet 50 l empaglifloz 2020-0 Yes 10mg QD [...] injection 14 l 0.2 mg Omeprazole Omeprazole 2019- Yes Na Mendoza 1 capsule Common 10-30 Spirit 00:00: - [facility] Furosemide Furosemide Yes Na Mendoza 1 tablet Common 04-16 Spirit 00:00: - [facility] Synthroid Synthroid Yes Na Mendoza 1 tablet Common 01-10 on an Spirit 00:00: empty [facility] stomach in [facility] Lipitor Lipitor Yes Na Mendoza 1 tablet Co mmon [facility] Aspir-81 Aspir-81 Yes Na Mendoza 1 tablet Common [facility] Furosemide Furosemide Yes Na Mendoza 1 tablet Common [facility] Metoprolol Metoprolol Yes Na Mendoza 1 tablet Common Succinate Succinate Spiri t ER [facility] Metformin Metformin Yes Na Mendoza 1 tablet Common HCl HCl with meals [facility] Losartan Losartan Yes Na Mendoza 1 tablet Common Potassium Potassium [facility] Nexium Nexium Yes Na Mendoza TAKE ONE Comm on CAPSULE BY [facility] EVERY DAY [facility] Jardiance Jardiance No Jardiance Rosuvastati Rosuvastati [...] C No Vitamin C Immunizations Ordered Filled Date Status Comments Source Immunization Name Immunization Name Influenza Virus 2022-07-31 Completed [facility] [...] [place] [facility] Free [facility] 65+ (FLUAD) Influenza Virus 2022-07-31 Completed Universit y of Vaccine,quad 00:00:00 [place] [facility] Im,preserve Free Branch 65+ (FLUAD) SARS-COV-2 COVID-19 2022-07-03 Completed Unive rsity of [...] YRS+, Branch BIVALENT 0.3ML, IM, (PFIZER SERNA TOP) SARS-COV-2 COVID-19 2022-07-03 Completed Unive rsity of PATRICIA-SUCROSE 00:00:00 [place] [facility] VACCINE 12 YRS+, Branch BIVALENT 0.3ML, IM, (PFIZER SERNA TOP) SARS-COV-2 COVID-19 2022-07-03 Completed Unive rsity of PATRICIA-SUCROSE 00:00:00 [place] [facility] VACCINE 12 YRS+, Branch BIVALENT 0.3ML, IM, (PFIZER SERNA TOP) SARS-COV-2 COVID-19 2022-07-03 Completed Unive rsity of PATRICIA-SUCROSE 00:00:00 [place] [facility] VACCINE 12 YRS+, Branch BIVALENT 0.3ML, IM, (PFIZER SERNA TOP) SARS-COV-2 COVID-19 2022-07-03 Completed Unive rsity of PATRICIA-SUCROSE 00:00:00 [place] [facility] VACCINE 12 YRS+, Branch BIVALENT 0.3ML, IM, (PFIZER SERNA TOP) SARS-COV-2 COVID-19 2022-07-03 Completed Unive rsity of PATRICIA-SUCROSE 00:00:00 [place] [facility] VACCINE 12 YRS+, Branch BIVALENT 0.3ML, IM, (PFIZER SERNA TOP) SARS-COV-2 COVID-19 2022-07-03 Completed Unive rsity of PATRICIA-SUCROSE 00:00:00 [place] [facility] VACCINE 12 YRS+, Branch BIVALENT 0.3ML, IM, (PFIZER SERNA TOP) SARS-COV-2 COVID-19 2022-07-03 Completed Unive rsity of PATRICIA-SUCROSE 00:00:00 [place] [facility] VACCINE 12 YRS+, Branch BIVALENT 0.3ML, IM, (PFIZER SERNA TOP) SARS-COV-2 COVID-19 2022-07-03 Completed Unive rsity of PATRICIA-SUCROSE 00:00:00 [place] [facility] VACCINE 12 YRS+, Branch BIVALENT 0.3ML, IM, (PFIZER SERNA TOP) SARS-COV-2 COVID-19 2022-07-03 Completed Unive rsity of PATRICIA-SUCROSE 00:00:00 [place] [facility] VACCINE 12 YRS+, Branch BIVALENT 0.3ML, IM, (PFIZER SERNA TOP) SARS-COV-2 COVID-19 2022-07-03 Completed Unive rsity of PATRICIA-SUCROSE 00:00:00 [place] [facility] VACCINE 12 YRS+, Branch BIVALENT 0.3ML, IM, (PFIZER SERNA TOP) SARS-COV-2 COVID-19 2022-07-03 Completed Unive rsity of PATRICIA-SUCROSE 00:00:00 [place] [facility] VACCINE 12 YRS+, Branch BIVALENT 0.3ML, IM, (PFIZER SERNA TOP) SARS-COV-2 COVID-19 2022-07-03 Completed Unive rsity of PATRICIA-SUCROSE 00:00:00 [place] [facility] VACCINE 12 YRS+, Branch BIVALENT 0.3ML, IM, (PFIZER SERNA TOP) SARS-COV-2 COVID-19 2022-07-03 Completed Unive rsity of PATRICIA-SUCROSE 00:00:00 [place] [facility] VACCINE 12 YRS+, Branch BIVALENT 0.3ML, IM, (PFIZER SERNA TOP) SARS-COV-2 COVID-19 2022-07-03 Completed Unive rsity of PATRICIA-SUCROSE 00:00:00 [place] [facility] VACCINE 12 YRS+, Branch BIVALENT 0.3ML, IM, (PFIZER SERNA TOP) SARS-COV-2 COVID-19 2022-07-03 Completed Unive rsity of PATRICIA-SUCROSE 00:00:00 [place] [facility] VACCINE 12 YRS+, Branch BIVALENT 0.3ML, IM, (PFIZER SERNA TOP) SARS-COV-2 COVID-19 2022-07-03 Completed Unive rsity of PATRICIA-SUCROSE 00:00:00 [place] [facility] VACCINE 12 YRS+, Branch BIVALENT 0.3ML, IM, (PFIZER SERNA TOP) SARS-COV-2 COVID-19 2022-07-03 Completed Unive rsity of PATRICIA-SUCROSE 00:00:00 [place] [facility] VACCINE 12 YRS+, Branch BIVALENT 0.3ML, IM, (PFIZER SERNA TOP) SARS-COV-2 COVID-19 2022-07-03 Completed Unive rsity of PATRICIA-SUCROSE 00:00:00 [place] [facility] VACCINE 12 YRS+, Branch BIVALENT 0.3ML, IM, (PFIZER SERNA TOP) SARS-COV-2 COVID-19 2022-07-03 Completed Unive rsity of PATRICIA-SUCROSE 00:00:00 [place] [facility] VACCINE 12 YRS+, Branch BIVALENT 0.3ML, IM, (PFIZER SERNA TOP) SARS-COV-2 COVID-19 2022-07-03 Completed Unive rsity of PATRICIA-SUCROSE 00:00:00 [place] [facility] VACCINE 12 YRS+, Branch BIVALENT 0.3ML, IM, (PFIZER SERNA TOP) SARS-COV-2 COVID-19 2022-07-03 Completed Unive rsity of PATRICIA-SUCROSE 00:00:00 [place] [facility] VACCINE 12 YRS+, Branch BIVALENT 0.3ML, IM, (PFIZER SERNA TOP) SARS-COV-2 COVID-19 2022-07-03 Completed Unive rsity of PATRICIA-SUCROSE 00:00:00 [place] [facility] VACCINE 12 YRS+, Branch BIVALENT 0.3ML, IM, (PFIZER SERNA TOP) SARS-COV-2 COVID-19 2022-07-03 Completed Unive rsity of PATRICIA-SUCROSE 00:00:00 [place] [facility] VACCINE 12 YRS+, Branch BIVALENT 0.3ML, IM, (PFIZER SERNA TOP) SARS-COV-2 COVID-19 2022-07-03 Completed Unive rsity of PATRICIA-SUCROSE 00:00:00 [place] [facility] VACCINE 12 YRS+, Branch BIVALENT 0.3ML, IM, (PFIZER SERNA TOP) SARS-COV-2 COVID-19 2022-07-03 Completed Unive rsity of PATRICIA-SUCROSE 00:00:00 [place] [facility] VACCINE 12 YRS+, Branch BIVALENT 0.3ML, IM, (PFIZER SERNA TOP) SARS-COV-2 COVID-19 2022-07-03 Completed Unive rsity of PATRICIA-SUCROSE 00:00:00 [place] [facility] VACCINE 12 YRS+, Branch BIVALENT 0.3ML, IM, (PFIZER SERNA TOP) SARS-COV-2 COVID-19 2022-07-03 Completed Unive rsity of PATRICIA-SUCROSE 00:00:00 [place] [facility] VACCINE 12 YRS+, Branch BIVALENT 0.3ML, IM, (PFIZER SERNA TOP) SARS-COV-2 COVID-19 2022-07-03 Completed Unive rsity of PATRICIA-SUCROSE 00:00:00 [place] [facility] VACCINE 12 YRS+, Branch BIVALENT 0.3ML, IM, (PFIZER SERNA TOP) SARS-COV-2 COVID-19 2022-07-03 Completed Unive rsity of PATRICIA-SUCROSE 00:00:00 [place] [facility] VACCINE 12 YRS+, Branch BIVALENT 0.3ML, IM, (PFIZER SERNA TOP) SARS-COV-2 COVID-19 2022-07-03 Completed Unive rsity of PATRICIA-SUCROSE 00:00:00 [place] [facility] VACCINE 12 YRS+, Branch BIVALENT 0.3ML, IM, (PFIZER SERNA TOP) SARS-COV-2 COVID-19 2022-07-03 Completed Unive rsity of PATRICIA-SUCROSE 00:00:00 [place] [facility] VACCINE 12 YRS+, Branch BIVALENT 0.3ML, IM, (PFIZER SERNA TOP) SARS-COV-2 COVID-19 2022-07-03 Completed Unive rsity of PATRICIA-SUCROSE 00:00:00 [place] [facility] VACCINE 12 YRS+, Branch BIVALENT 0.3ML, IM, (PFIZER SERNA TOP) SARS-COV-2 COVID-19 2022-01-30 Completed Unive rsity of [...] YRS 00:00:00 [place] [facility] VACCINE [facility] COVID19 [facility] COVID-19 2021-08-12 Completed [facility] - Vaccine (Low Dose Vaccine (Low Dose 10:08:[address] [facility] Booster) Booster) [facility] COVID19 Moderna COVID-19 2021-08-12 Completed [facility] - Vaccine (Low Dose Vaccine (Low Dose 10:08:[address] [facility] Booster) Booster) [facility] COVID19 [facility] COVID-19 2021-08-12 Completed [facility] - Vaccine (Low Dose Vaccine (Low Dose 10:08:[address] [facility] Booster) Booster) [facility] COVID19 [facility] COVID-19 2021-08-12 Completed [facility] - Vaccine (Low Dose Vaccine (Low Dose 10:08:[address] [facility] Booster) Booster) [facility] COVID19 [facility] COVID19 2021-08-12 Completed [facility] - Vaccine (Low Dose Vaccine (Low Dose 10:08:[address] [facility] Booster) Booster) [facility] COVID19 [facility] COVID19 2021-08-12 Completed [facility] - Vaccine (Low Dose Vaccine (Low Dose 10:08:[address] [facility] Booster) Booster) [facility] COVID19 [facility] COVID-19 2021-08-12 Completed [facility] - Vaccine (Low Dose Vaccine (Low Dose 10:08:[address] [facility] Booster) Booster) [facility] COVID19 [facility] COVID-19 2021-08-12 Completed [facility] - Vaccine (Low Dose Vaccine (Low Dose 10:08:[address] [facility] Booster) Booster) [facility] COVID19 [facility] COVID19 2021-08-12 Completed [facility] - Vaccine (Low Dose Vaccine (Low Dose 10:08:[address] [facility] Booster) Booster) [facility] COVID19 [facility] COVID-19 2021-08-12 Completed [facility] - Vaccine (Low Dose Vaccine (Low Dose 10:08:[address] [facility] Booster) Booster) [facility] SARS-COV-2 COVID19 2021-08-12 Completed Unive rsity of [...] rsity of MODERNA 12+ YRS 00:00:00 [place] [facility] ical VACCINE Branch SARS-COV-2 COVID-19 2021-08-12 Completed Unive rsity of MODERNA 12+ YRS 00:00:00 [place] [facility] VACCINE Branch SARS-COV-2 COVID-19 2021-08-12 Completed Unive rsity of MODERNA 12+ YRS 00:00:00 [place] [facility] ical VACCINE Branch SARS-COV-2 COVID-19 2021-08-12 Completed Unive rsity of MODERNA 12+ YRS 00:00:00 [place] [facility] VACCINE Branch SARS-COV-2 COVID-19 2021-08-12 Completed Unive rsity of MODERNA 12+ YRS 00:00:00 [place] [facility] ical VACCINE Branch SARS-COV-2 COVID-19 2021-08-12 Completed Unive rsity of MODERNA 12+ YRS 00:00:00 [place] [facility] ical VACCINE Branch FluAD FluAD 2021-07-15 Completed [facility] - 12:01:00 [facility] FluAD FluAD 2021-07-15 Completed [facility] - 12:01:00 [facility] FluAD FluAD 2021-07-15 Completed [facility] - 12:01:00 [facility] FluAD FluAD 2021-07-15 Completed [facility] - 12:01:00 [facility] FluAD FluAD 2021-07-15 Completed [facility] - 12:01: [facility] FluAD FluAD 2021-07-15 Completed [facility] - 12:01:00 [facility] FluAD FluAD 2021-07-15 Completed [facility] - 12:01:00 [facility] FluAD FluAD 2021-07-15 Completed [facility] - 12:01:00 [facility] FluAD FluAD 2021-07-15 Completed [facility] - 12:01: [facility] FluAD FluAD 2021-07-15 Completed [facility] 12:01: [facility] FluAD FluAD 2021-07-15 Completed [facility] - 12:01:00 [facility] FluAD FluAD 2021-07-15 Completed [facility] - 12:01:00 [facility] Influenza Virus 2021-07-15 [facility]pleted [facility] [place] [facility] [place] [facility] (FLUAD[place] Influenza Virus 2021-07-15 Completed [facility] Vaccine[facility]quad 00:[facility] [place] [facility] (FLUAD) [place]upiv[place]aine [place] Bupivicaine [place] 2020-12-28 Completed [facility] - 15:49:00 [facility] Kenalog Kenalog 2020-12-28 Completed [facility] - (Triamcinolone) (Triamcinolone) 15:49:00 [facility] Bupivicaine [place] Bupivicaine [place] 2020-12-28 Completed [facility] - 15:49:00 [facility] Juan Jose Ingram 2020-12-28 Completed [facility] - (Triamcinolone) (Triamcinolone) 15:49:00 [facility] Bupivicaine [place] Bupivicaine [place] 2020-12-28 Completed [facility] - 15:49:00 [facility] Kenvicky Kenalog 2020-12-28 Completed [facility] - (Triamcinolone) (Triamcinolone) 15:49:00 [facility] Bupivicaine [place] Bupivicaine [place] 2020-12-28 Completed [facility] - 15:49:00 [facility] Kenvicky Kenalog 2020-12-28 Completed [facility] - (Triamcinolone) (Triamcinolone) 15:49:00 [facility] Bupivicaine [place] Bupivicaine [place] 2020-12-28 Completed [facility] - 15:49:00 [facility] Juan Jose Ingram 2020-12-28 Completed [facility] - (Triamcinolone) (Triamcinolone) 15:49:00 [facility] Bupivicaine [place] Bupivicaine [place] 2020-12-28 Completed [facility] - 15:49:00 [facility] Kenvicky Ingram 2020-12-28 Completed [facility] - (Triamcinolone) (Triamcinolone) 15:49:00 [facility] Bupivicaine [place] Bupivicaine [place] 2020-12-28 Completed [facility] - 15:49:00 [facility] Juan Jose Ingram 2020-12-28 Completed [facility] - (Triamcinolone) (Triamcinolone) 15:49:00 [facility] SARS-COV-2 COVID-19 2020-11-20 Completed [facility] of MODERNA 12+ YRS 00:00:00 [facility] ica VACCINE Branch SARS-COV-2 COVID-19 2020-11-20 Completed [facility] rs[facility] of MODERNA 12+ YRS 00:00:00 [facility] VACCINE Branch SARS-COV-2 COVID-19 2020-11-20 Completed [facility] rs[facility] of MODERNA 12+ YRS 00:00:00 [facility] VACCINE Branch SARS-COV-2 COVID-19 2020-11-20 Completed [...] [facility]ive rs[facility] of MODERNA 12+ YRS 00:00:00 [facility] ical VACCINE Branch SARS-COV-2 COVID-19 2020-10-23 Completed [facility] of MODERNA 12+ YRS 00:00:00 [facility] ical VACCINE Branch SARS-COV-2 COVID-19 2020-10-23 Completed [facility] of MODERNA 12+ YRS 00:00:00 [facility] ical VACCINE Branch SARS-COV-2 COVID-19 2020-10-23 Completed [facility] of MODERNA 12+ YRS 00:00:00 [facility] ical VACCINE Branch SARS-COV-2 COVID-19 2020-10-23 Completed [facility] of MODERNA 12+ YRS 00:00:00 [facility] ical VACCINE Branch SARS-COV-2 COVID-19 2020-10-23 Completed [facility] rs[facility] of MODERNA 12+ YRS 00:00:00 [facility] ical VACCINE Branch SARS-COV-2 COVID-19 2020-10-23 Completed [facility] rs[facility] of MODERNA 12+ YRS 00:00:00 [facility] ical VACCINE Branch SARS-COV-2 COVID-19 2020-10-23 Completed [facility] rs[facility] of MODERNA 12+ YRS 00:00:00 [facility] ical VACCINE Branch SARS-COV-2 COVID-19 2020-10-23 Completed [facility] rs[facility] of MODERNA 12+ YRS 00:00:00 [facility] VACCINE Branch Zoster Vaccine 2020-08-24 Completed [facility] Recombinant 00:00:00 [facility] Zoster Vaccine 2020-08-24 Completed [facility] Recombinant 00:00:00 [facility] Zoster Vaccine 2020-08-24 Completed [facility] Recombinant 00:00:00 [facility] Zoster Vaccine 2020-08-24 Completed [facility] Recombinant 00:00:00 [facility] Zoster Vaccine 2020-08-24 Completed [facility] Recombinant 00:00:00 [facility] Zoster Vaccine 2020-08-24 Completed [facility] Recombinant 00:00:00 [facility] Zoster Vaccine 2020-08-24 Completed [facility] Recombinant 00:00:00 [facility] Zoster Vaccine 2020-08-24 Completed [facility] Recombinant 00:00:00 [facility] Zoster Vaccine 2020-08-24 Completed [facility] Recombinant 00:00:00 [facility] Zoster Vaccine 2020-08-24 Completed [facility] Recombinant 00:00:00 [facility] Zoster Vaccine 2020-08-24 Completed [facility] Recombinant 00:00:00 [facility] Zoster Vaccine 2020-08-24 Completed [facility] Recombinant 00:00:00 [facility] Zoster Vaccine 2020-08-24 Completed [facility] Recombinant 00:00:00 [facility] Zoster Vaccine 2020-08-24 Completed [facility] Recombinant 00:00:00 [facility] Zoster Vaccine 2020-08-24 Completed [facility] Recombinant 00:00:00 [facility] Zoster Vaccine 2020-08-24 Completed [facility] Recombinant 00:00:00 [facility] Zoster Vaccine 2020-08-24 Completed [facility] Recombinant 00:00:00 [facility] Zoster Vaccine 2020-08-24 Completed [facility] Recombinant 00:00:00 [facility] Zoster Vaccine 2020-08-24 Completed [facility] Recombinant 00:00:00 [facility] Zoster Vaccine 2020-08-24 Completed [facility] Recombinant 00:00:00 [facility] Zoster Vaccine 2020-08-24 Completed [facility] Recombinant 00:00:00 [facility] Zoster Vaccine 2020-08-24 Completed [facility] Recombinant 00:00:00 [facility] Zoster Vaccine 2020-08-24 Completed [facility] Recombinant 00:00:00 [facility] Zoster Vaccine 2020-08-24 Completed [facility] Recombinant 00:00:00 [facility] Zoster Vaccine 2020-08-24 Completed [facility] Recombinant 00:00:00 [facility] Zoster Vaccine 2020-08-24 Completed [facility] Recombinant 00:00:00 [facility] Zoster Vaccine 2020-08-24 Completed [facility] Recombinant 00:00:00 [facility] Zoster Vaccine 2020-08-24 Completed [facility] Recombinant 00:00:00 [facility] Zoster Vaccine 2020-08-24 Completed [facility] Recombinant 00:00:00 [facility] Zoster Vaccine 2020-08-24 Completed [facility] Recombinant 00:00:00 [facility] Zoster Vaccine 2020-08-24 Completed [facility] Recombinant 00:00:00 [facility] Zoster Vaccine 2020-08-24 Completed [facility] Recombinant 00:00:00 [facility] Zoster Vaccine 2020-08-24 Completed [facility] Recombinant 00:00:00 [facility] Zoster Vaccine 2020-08-24 Completed [facility] Recombinant 00:00:00 [facility] Zoster Vaccine 2020-08-24 Completed [facility] Recombinant 00:00:00 [facility] Zoster Vaccine 2020-08-24 Completed [facility] Recombinant 00:00:00 [facility] Zoster Vaccine 2020-08-24 Completed [facility] Recombinant 00:00:00 [facility] Zoster Vaccine 2020-08-24 Completed [facility] Recombinant 00:00:00 [facility] Zoster Vaccine 2020-08-24 Completed [facility] Recombinant 00:00:00 [facility] Zoster Vaccine 2020-08-24 Completed [facility] Recombinant 00:00:00 [facility] Zoster Vaccine 2020-08-24 Completed [facility] Recombinant 00:00:00 [facility] Zoster Vaccine 2020-08-24 Completed [facility] Recombinant 00:00:00 [facility] Zoster Vaccine 2020-08-24 Completed [facility] Recombinant 00:00:00 [facility] Zoster Vaccine 2020-08-24 Completed [facility] Recombinant 00:00:00 [facility] Zoster Vaccine 2020-08-24 Completed [facility] Recombinant 00:00:00 [facility] Zoster Vaccine 2020-08-24 Completed [facility] Recombinant 00:00:00 [facility] Zoster Vaccine 2020-08-24 Completed [facility] Recombinant 00:00:00 [facility] Zoster Vaccine 2020-08-24 Completed [facility] Recombinant 00:00:00 [facility] Zoster Vaccine 2020-08-24 Completed [facility] Recombinant 00:00:00 [facility] Zoster Vaccine 2020-08-24 Completed [facility] Recombinant 00:00:00 [facility] Zoster Vaccine 2020-08-24 Completed [facility] Recombinant 00:00:00 [facility] Zoster Vaccine 2020-08-24 Completed [facility] Recombinant 00:00:00 [facility] Zoster Vaccine 2020-08-24 Completed [facility] Recombinant 00:00:00 [facility] Zoster Vaccine 2020-08-24 Completed [facility] Recombinant 00:00:00 [facility] Zoster Vaccine 2020-08-24 Completed [facility] Recombinant 00:00:00 [facility] Zoster Vaccine 2020-08-24 Completed [facility] Recombinant 00:00:00 [facility] Zoster Vaccine 2020-08-24 Completed [facility] Recombinant 00:00:00 [facility] Zoster Vaccine 2020-08-24 Completed [facility] Recombinant 00:00:00 [facility] Zoster Vaccine 2020-08-24 Completed [facility] Recombinant 00:00:00 [facility] Zoster Vaccine 2020-08-24 Completed [facility] Recombinant 00:00:00 [facility] Zoster Vaccine 2020-08-24 Completed [facility] Recombinant 00:00:00 [facility] Zoster Vaccine 2020-08-24 Completed [facility] Recombinant 00:00:00 [facility] Zoster Vaccine 2020-08-24 Completed [facility] Recombinant 00:00:00 [facility] Zoster Vaccine 2020-08-24 Completed [facility] Recombinant 00:00:00 [facility] Zoster Vaccine 2020-08-24 Completed [facility] Recombinant 00:00:00 [facility] Zoster Vaccine 2020-08-24 Completed [facility] Recombinant 00:00:00 [facility] Zoster Vaccine 2020-08-24 Completed [facility] Recombinant 00:00:00 [facility] Zoster Vaccine 2020-06-25 Completed [facility] Recombinant 00:00:00 [facility] Zoster Vaccine 2020-06-25 Completed [facility] Recombinant 00:00:00 [facility] Zoster Vaccine 2020-06-25 Completed [facility] Recombinant 00:00:00 [facility] Zoster Vaccine 2020-06-25 Completed [facility] Recombinant 00:00:00 [facility] Zoster Vaccine 2020-06-25 Completed [facility] Recombinant 00:00:00 [facility] Zoster Vaccine 2020-06-25 Completed [facility] Recombinant 00:00:00 [facility] Zoster Vaccine 2020-06-25 Completed [facility] Recombinant 00:00:00 [facility] Zoster Vaccine 2020-06-25 Completed [facility] Recombinant 00:00:00 [facility] Zoster Vaccine 2020-06-25 Completed [facility] Recombinant 00:00:00 [facility] Zoster Vaccine 2020-06-25 Completed [facility] Recombinant 00:00:00 [facility] Zoster Vaccine 2020-06-25 Completed [facility] Recombinant 00:00:00 [facility] Zoster Vaccine 2020-06-25 Completed [facility] Recombinant 00:00:00 [facility] Zoster Vaccine 2020-06-25 Completed [facility] Recombinant 00:00:00 [facility] Zoster Vaccine 2020-06-25 Completed [facility] Recombinant 00:00:00 [facility] Zoster Vaccine 2020-06-25 Completed [facility] Recombinant 00:00:00 [facility] Zoster Vaccine 2020-06-25 Completed [facility] Recombinant 00:00:00 [facility] Zoster Vaccine 2020-06-25 Completed [facility] Recombinant 00:00:00 [facility] Zoster Vaccine 2020-06-25 Completed [facility] Recombinant 00:00:00 [facility] Zoster Vaccine 2020-06-25 Completed [facility] Recombinant 00:00:00 [facility] Zoster Vaccine 2020-06-25 Completed [facility] Recombinant 00:00:00 [facility] Zoster Vaccine 2020-06-25 Completed [facility] Recombinant 00:00:00 [facility] Zoster Vaccine 2020-06-25 Completed [facility] Recombinant 00:00:00 [facility] Zoster Vaccine 2020-06-25 Completed [facility] Recombinant 00:00:00 [facility] Zoster Vaccine 2020-06-25 Completed [facility] Recombinant 00:00:00 [facility] Zoster Vaccine 2020-06-25 Completed [facility] Recombinant 00:00:00 [facility] Zoster Vaccine 2020-06-25 Completed [facility] Recombinant 00:00:00 [facility] Zoster Vaccine 2020-06-25 Completed [facility] Recombinant 00:00:00 [facility] Zoster Vaccine 2020-06-25 Completed [facility] Recombinant 00:00:00 [facility] Zoster Vaccine 2020-06-25 Completed [facility] Recombinant 00:00:00 [facility] Zoster Vaccine 2020-06-25 Completed [facility] Recombinant 00:00:00 [facility] Zoster Vaccine 2020-06-25 Completed [facility] Recombinant 00:00:00 [facility] Zoster Vaccine 2020-06-25 Completed [facility] Recombinant 00:00:00 [facility] Zoster Vaccine 2020-06-25 Completed [facility] Recombinant 00:00:00 [facility] Zoster Vaccine 2020-06-25 Completed [facility] Recombinant 00:00:00 [facility] Zoster Vaccine 2020-06-25 Completed [facility] Recombinant 00:00:00 [facility] Zoster Vaccine 2020-06-25 Completed [facility] Recombinant 00:00:00 [facility] Zoster Vaccine 2020-06-25 Completed [facility] Recombinant 00:00:00 [facility] Zoster Vaccine 2020-06-25 Completed [facility] Recombinant 00:00:00 [facility] Zoster Vaccine 2020-06-25 Completed [facility] Recombinant 00:00:00 [facility] Zoster Vaccine 2020-06-25 Completed [facility] Recombinant 00:00:00 [facility] Zoster Vaccine 2020-06-25 Completed [facility] Recombinant 00:00:00 [facility] Zoster Vaccine 2020-06-25 Completed [facility] Recombinant 00:00:00 [facility] Zoster Vaccine 2020-06-25 Completed [facility] Recombinant 00:00:00 [facility] Zoster Vaccine 2020-06-25 Completed [facility] Recombinant 00:00:00 [facility] Zoster Vaccine 2020-06-25 Completed [facility] Recombinant 00:00:00 [facility] Zoster Vaccine 2020-06-25 Completed [facility] Recombinant 00:00:00 [facility] Zoster Vaccine 2020-06-25 Completed [facility] Recombinant 00:00:00 [facility] Zoster Vaccine 2020-06-25 Completed [facility] Recombinant 00:00:00 [facility] Zoster Vaccine 2020-06-25 Completed [facility] Recombinant 00:00:00 [facility] Zoster Vaccine 2020-06-25 Completed [facility] Recombinant 00:00:00 [facility] Zoster Vaccine 2020-06-25 Completed [facility] Recombinant 00:00:00 [facility] Zoster Vaccine 2020-06-25 Completed [facility] Recombinant 00:00:00 [facility] Zoster Vaccine 2020-06-25 Completed [facility] Recombinant 00:00:00 [facility] Zoster Vaccine 2020-06-25 Completed [facility] Recombinant 00:00:00 [facility] Zoster Vaccine 2020-06-25 Completed [facility] Recombinant 00:00:00 [facility] Zoster Vaccine 2020-06-25 Completed [facility] Recombinant 00:00:00 [facility] Zoster Vaccine 2020-06-25 Completed [facility] Recombinant 00:00:00 [facility] Zoster Vaccine 2020-06-25 Completed [facility] Recombinant 00:00:00 [facility] Zoster Vaccine 2020-06-25 Completed [facility] Recombinant 00:00:00 [facility] Zoster Vaccine 2020-06-25 Completed [facility] Recombinant 00:00:00 [facility] Zoster Vaccine 2020-06-25 Completed [facility] Recombinant 00:00:00 [facility] Zoster Vaccine 2020-06-25 Completed [facility] Recombinant 00:00:00 [facility] Zoster Vaccine 2020-06-25 Completed [facility] Recombinant 00:00:00 [facility] Zoster Vaccine 2020-06-25 Completed [facility] Recombinant 00:00:00 [facility] Zoster Vaccine 2020-06-25 Completed [facility] Recombinant 00:00:00 [facility] Zoster Vaccine 2020-06-25 Completed [facility] Recombinant 00:00:00 [facility] Zoster Vaccine 2020-06-25 Completed [facility] Recombinant 00:00:00 [facility] [place]upivicaine [place] Bupivicaine [place] 2020-01-22 Completed [facility] - 14:07:00 [facility] Bupivicaine [place] Bupivicaine [place] 2020-01-22 Completed [facility] - 14:07:00 [facility] Bupivicaine [place] Bupivicaine [place] 2020-01-22 Completed [facility] - 14:07:00 [facility] Bupivicaine [place] Bupivicaine [place] 2020-01-22 Completed [facility] - 14:07:00 [facility] Bupivicaine [place] Bupivicaine [place] 2020-01-22 Completed [facility] - 14:07:00 [facility] Bupivicaine [place] Bupivicaine [place] 2020-01-22 Completed [facility] - 14:07:00 [facility] Bupivicaine [place] Bupivicaine [place] 2020-01-22 Completed [facility] - 14:07:00 [facility] Kenalog Kenalog 2020-01-22 Completed [facility] - (Triamcinolone) (Triamcinolone) 14:06:00 [facility] Kenalog Kenalog 2020-01-22 Completed [facility] - (Triamcinolone) (Triamcinolone) 14:06:00 [facility] Kenalog Kenalog 2020-01-22 Completed [facility] - (Triamcinolone) (Triamcinolone) 14:06:00 [facility] Kenalog Kenalog 2020-01-22 Completed [facility] - (Triamcinolone) (Triamcinolone) 14:06:00 [facility] Kenalog Kenalog 2020-01-22 Completed [facility] - (Triamcinolone) (Triamcinolone) 14:06:00 [facility] Kenalog Kenalog 2020-01-22 Completed [facility] - (Triamcinolone) (Triamcinolone) 14:06:00 [facility] Kenalog Kenalog 2020-01-22 Completed [facility] - (Triamcinolone) (Triamcinolone) 14:06:00 [facility] FluAD FluAD 2019-07-10 Completed [facility] - 13:33:00 [facility] FluAD FluAD 2019-07-10 Completed [facility] - 13:33:00 [facility] FluAD FluAD 2019-07-10 Completed [facility] - 13:33:00 [facility] FluAD FluAD 2019-07-10 Completed [facility] - 13:33:00 [facility] FluAD FluAD 2019-07-10 Completed [facility] - 13:33:00 [facility] FluAD FluAD 2019-07-10 Completed [facility] - 13:33:00 [facility] FluAD FluAD 2019-07-10 Completed [facility] - 13:33:00 [facility] FluAD FluAD 2019-07-10 Completed [facility] - 13:33:00 [facility] FluAD FluAD 2019-07-10 Completed [facility] - 13:33:00 [facility] FluAD FluAD 2019-07-10 Completed [facility] - 13:33:00 [facility] FluAD FluAD 2019-07-10 Completed [facility] - 13:33:00 [facility] FluAD FluAD 2019-07-10 Completed [facility] - 13:33:00 [facility] FluAD FluAD 2019-07-10 Completed [facility] - 13:33:00 [facility] FluAD FluAD 2019-07-10 Completed [facility] - 13:33:00 [facility] FluAD FluAD 2019-07-10 Completed [facility] - 13:33:00 [facility] FluAD FluAD 2019-07-10 Completed [facility] - 13:33:00 [facility] Influenza Virus 2019-07-10 Completed [facility] [place] [facility] [place] [facility] (FLUAD) Influenza Virus 2019-07-10 Completed [facility] Vaccine,quad 00:00:[facility] [place] [facility] [place] [facility]+ (FLUAD) FluAD FluAD 2019-07-10 Completed [facility] - 00:00:00 [facility] TDAP 2017-07-02 Completed [facility] 00:00:00 [facility] TDAP 2017-07-02 Completed [facility] 00:00:00 [facility] TDAP 2017-07-02 Completed [facility] 00:00:00 [facility] TDAP 2017-07-02 Completed [facility] 00:00:00 [facility] TDAP 2017-07-02 Completed [facility] 00:00:00 [facility] TDAP 2017-07-02 Completed [facility] 00:00:00 [facility] TDAP 2017-07-02 Completed [facility] 00:00:00 [facility] TDAP 2017-07-02 Completed [facility] 00:00:00 [facility] TDAP 2017-07-02 Completed [facility] 00:00:00 [facility] TDAP 2017-07-02 Completed [facility] 00:00:00 [facility] TDAP 2017-07-02 Completed [facility] 00:00:00 [facility] TDAP 2017-07-02 Completed [facility] 00:00:00 [facility] TDAP 2017-07-02 Completed [facility] 00:00:00 [facility] TDAP 2017-07-02 Completed [facility] 00:00:00 [facility] TDAP 2017-07-02 Completed [facility] 00:00:00 [facility] TDAP 2017-07-02 Completed [facility] 00:00:00 [facility] TDAP 2017-07-02 Completed [facility] 00:00:00 [facility] TDAP 2017-07-02 Completed [facility] 00:00:00 [facility] TDAP 2017-07-02 Completed [facility] 00:00:00 [facility] TDAP 2017-07-02 Completed [facility] 00:00:00 [facility] TDAP 2017-07-02 Completed [facility] 00:00:00 [facility] TDAP 2017-07-02 Completed [facility] 00:00:00 [facility] TDAP 2017-07-02 Completed [facility] 00:00:00 [facility] TDAP 2017-07-02 Completed [facility] 00:00:00 [facility] TDAP 2017-07-02 Completed [facility] 00:00:00 [facility] TDAP 2017-07-02 Completed [facility] 00:00:00 [facility] TDAP 2017-07-02 Completed [facility] 00:00:00 [facility] TDAP 2017-07-02 Completed [facility] 00:00:00 [facility] TDAP 2017-07-02 Completed [facility] 00:00:00 [facility] TDAP 2017-07-02 Completed [facility] 00:00:00 [facility] TDAP 2017-07-02 Completed [facility] 00:00:00 [facility] TDAP 2017-07-02 Completed [facility] 00:00:00 [facility] TDAP 2017-07-02 Completed [facility] 00:00:00 [facility] TDAP 2017-07-02 Completed [facility] 00:00:00 [facility] TDAP 2017-07-02 Completed [facility] 00:00:00 [facility] TDAP 2017-07-02 Completed [facility] 00:00:00 [facility] TDAP 2017-07-02 Completed [facility] 00:00:00 [facility] TDAP 2017-07-02 Completed [facility] 00:00:00 [facility] TDAP 2017-07-02 Completed [facility] 00:00:00 [facility] TDAP 2017-07-02 Completed [facility] 00:00:00 [facility] TDAP 2017-07-02 Completed [facility] 00:00:00 [facility] TDAP 2017-07-02 Completed [facility] 00:00:00 [facility] TDAP 2017-07-02 Completed [facility] 00:00:00 [facility] TDAP 2017-07-02 Completed [facility] 00:00:00 [facility] TDAP 2017-07-02 Completed [facility] 00:00:00 [facility] TDAP 2017-07-02 Completed [facility] 00:00:00 [facility] TDAP 2017-07-02 Completed [facility] 00:00:00 [facility] TDAP 2017-07-02 Completed [facility] 00:00:00 [facility] TDAP 2017-07-02 Completed [facility] 00:00:00 [facility] TDAP 2017-07-02 Completed [facility] 00:00:00 [facility] TDAP 2017-07-02 Completed [facility] 00[facility]00:00 [facility] TDAP 2017-07-02 Completed [facility] 00:00:00 [facility] TDAP 2017-07-02 Completed [facility] 00:00:00 [facility] TDAP 2017-07-02 Completed [facility] 00:00:00 [facility] TDAP 2017-07-02 Completed [facility] 00:00:00 [facility] TDAP 2017-07-02 Completed [facility] 00:00:00 [facility] TDAP 2017-07-02 Completed [facility] 00:00:00 [facility] TDAP 2017-07-02 Completed [facility] 00:00:00 [facility] TDAP 2017-07-02 Completed [facility] 00:00:00 [facility] TDAP 2017-07-02 Completed [facility] 00:00:00 [facility] TDAP 2017-07-02 Completed [facility] 00:00:00 [facility] TDAP 2017-07-02 Completed [facility] 00:00:00 [facility] TDAP 2017-07-02 Completed [facility] 00:00:00 [facility] TDAP 2017-07-02 Completed [facility] 00:00:00 [facility] TDAP 2017-07-02 Completed [facility] 00:00:00 [facility] TDAP 2017-07-02 Completed [facility] 00:00:00 [facility] TDAP 2017-07-02 Completed [facility] 00:00:00 [facility] Pneumococcal 2016-07-15 Completed University o f Polysaccharide, [...] Universit y of Conjugate, PCV13 00:00:00 [place] [facility] (Prevnar 13) Branch Pneumococcal 13 2015-06-15 Completed Universit y of Conjugate, PCV13 00:00:00 [facility] dical (Prevnar 13) Branch SARS-COV-2 COVID-19 Unknown Completed Unive rsity of MODERNA 12+ YRS [facility] ical VACCINE Branch SARS-COV-2 COVID-19 Unknown Completed Unive rsity of MODERNA 12+ YRS [facility] ical VACCINE Branch Zoster Vaccine Unknown Completed [facility] Zoster Vaccine Unknown Completed [facility] SARS-COV-2 COVID-19 Unknown Completed Unive rsity of MODERNA 12+ YRS [facility] ical VACCINE Branch Influenza Virus Unknown Completed [facility] Vaccine,quad [place] [facility] 65+ (FLUAD) Influenza Virus Unknown Completed [facility] Vaccine,quad [place] [facility] 65+ (FLUAD) SARS-COV-2 COVID-19 Unknown Completed Unive rsity of MODERNA 12+ YRS [facility] ical VACCINE Branch TDAP Unknown Completed [facility] Pneumococcal 13 Unknown Completed Universit y of Conjugate, PCV13 [facility] dical (Prevnar 13) Branch Pneumococcal Unknown Completed [place] [facility] f Polysaccharide, [facility] ical PPSV23 (PNEUMOVAX) Branch SARS-COV-2 COVID-19 Unknown Completed Unive rsity of [facility] [place] [facility] VACCINE 12 YRS+, Branch BIVALENT 0.3ML, IM, (PFIZER SERNA TOP) Influenza Virus Unknown Completed [facility] y of Vaccine,quad [place] [facility] 65+ (FLUAD) SARS-COV-2 COVID-19 Unknown Completed Unive rsity of MODERNA 12+ YRS [facility] ical VACCINE Branch SARS-COV-2 COVID-19 Unknown Completed Unive rsity of MODERNA 12+ YRS [facility] ical VACCINE Branch Zoster Vaccine Unknown Completed [facility] Zoster Vaccine Unknown Completed [facility] SARS-COV-2 COVID-19 Unknown Completed Unive rsity of MODERNA 12+ YRS [place] [facility] VACCINE [facility] Influenza Virus Unknown Completed [facility] Vaccine,quad [place] [facility] 65+ (FLUAD) Influenza Virus Unknown Completed [facility] Vaccine,quad [place] [facility] 65+ (FLUAD) SARS-COV-2 COVID-19 Unknown Completed Unive rsity of MODERNA 12+ YRS [facility] ical VACCINE Branch TDAP Unknown Completed [facility] Pneumococcal 13 Unknown Completed [facility] Conjugate, PCV13 [place] [facility] (Prevnar 13) [facility] Pneumococcal Unknown Completed University o f Polysaccharide, [facility] ical PPSV23 (PNEUMOVAX) Branch SARS-COV-2 COVID-19 Unknown Completed [facility]ive rsity of [facility] [place] [facility] VACCINE 12 YRS+, Branch BIVALENT 0.3ML, IM, (PFIZER SERNA TOP) Influenza Virus Unknown Completed [facility] Vaccine,quad [place] [facility] 65+ (FLUAD) SARS-COV-2 COVID-19 Unknown Completed Unive rsity of MODERNA 12+ YRS [facility] ical VACCINE Branch SARS-COV-2 COVID-19 Unknown Completed Unive rsity of MODERNA 12+ YRS [facility] ical VACCINE Branch Zoster Vaccine Unknown Completed [facility] Zoster Vaccine Unknown Completed [facility] SARS-COV-2 COVID-19 Unknown Completed Unive rsity of MODERNA 12+ YRS [facility] ical VACCINE Branch Influenza Virus Unknown Completed [facility] Vaccine,quad [place] [facility] 65+ (FLUAD) Influenza Virus Unknown Completed [facility] of Vaccine,quad [place] [facility] 65+ (FLUAD) SARS-COV-2 COVID-19 Unknown Completed Unive rsity of MODERNA 12+ YRS [facility] ical VACCINE Branch TDAP Unknown Completed [facility] Pneumococcal 13 Unknown Completed [facility]it y of Conjugate, PCV13 [place] [facility] (Prevnar 13) [facility] Pneumococcal Unknown Completed [facility] o f Polysaccharide, [facility] ical PPSV23 (PNEUMOVAX) Branch SARS-COV-2 COVID-19 Unknown Completed [facility]ive rsity of [facility] [place] [facility] VACCINE 12 YRS+, Branch BIVALENT 0.3ML, IM, (PFIZER SERNA TOP) Influenza Virus Unknown Completed [facility] of Vaccine,quad [place] [facility] Im,preserve Free [facility] 65+ (FLUAD) SARS-COV-2 COVID-19 Unknown Completed Unive rsity of MODERNA 12+ YRS [place] [facility] VACCINE [facility] SARS-COV-2 COVID-19 Unknown Completed Unive rsity of MODERNA 12+ YRS [place] [facility] VACCINE [facility] Zoster Vaccine Unknown Completed [facility] Zoster Vaccine Unknown Completed [facility] SARS-COV-2 COVID-19 Unknown Completed Unive rsity of MODERNA 12+ YRS [place] [facility] VACCINE [facility] Influenza Virus Unknown Completed [facility] Vaccine,quad [place] [facility] 65+ (FLUAD) Influenza Virus Unknown Completed [facility] of Vaccine,quad [place] [facility] 65+ (FLUAD) SARS-COV-2 COVID-19 Unknown Completed Unive rsity of MODERNA 12+ YRS [place] [facility] VACCINE [facility] TDAP Unknown Completed [facility] Pneumococcal 13 Unknown Completed Universit y of Conjugate, PCV13 [facility] dical (Prevnar 13) Branch Pneumococcal Unknown Completed University o f Polysaccharide, [facility] ical PPSV23 (PNEUMOVAX) Branch SARS-COV-2 COVID-19 Unknown Completed Unive rsity of MODERNA 12+ YRS [place] [facility] VACCINE [facility] SARS-COV-2 COVID-19 Unknown Completed Unive rsity of MODERNA 12+ YRS [facility] ical VACCINE Branch Zoster Vaccine Unknown Completed [facility] Zoster Vaccine Unknown Completed [facility] SARS-COV-2 COVID-19 Unknown Completed Unive rsity of MODERNA 12+ YRS [place] [facility] VACCINE [facility] Influenza Virus Unknown Completed [facility] Vaccine,quad [place] [facility] 65+ (FLUAD) Influenza Virus Unknown Completed [facility] of Vaccine,quad [place] [facility] 65+ (FLUAD) SARS-COV-2 COVID-19 Unknown Completed Unive rsity of MODERNA 12+ YRS [place] [facility] VACCINE [facility] TDAP Unknown Completed [facility] Pneumococcal 13 Unknown Completed [facility]it y of Conjugate, PCV13 [place] [facility] (Prevnar 13) Branch Pneumococcal Unknown Completed [facility] o f Polysaccharide, [facility] ical PPSV23 (PNEUMOVAX) Branch SARS-COV-2 COVID-19 Unknown Completed Unive rsity of MODERNA 12+ YRS [place] [facility] VACCINE [facility] SARS-COV-2 COVID-19 Unknown Completed Unive rsity of MODERNA 12+ YRS [place] [facility] VACCINE [facility] Zoster Vaccine Unknown Completed [facility] Zoster Vaccine Unknown Completed [facility] SARS-COV-2 COVID-19 Unknown Completed Unive rsity of MODERNA 12+ YRS [place] [facility] VACCINE [facility] Influenza Virus Unknown Completed [facility] Vaccine,quad [place] [facility] 65+ (FLUAD) Influenza Virus Unknown Completed [facility] of Vaccine,quad [place] [facility] Free [facility] 65+ (FLUAD) SARS-COV-2 COVID-19 Unknown Completed Unive rsity of MODERNA 12+ YRS [place] [facility] VACCINE [facility] TDAP Unknown Completed [facility] Pneumococcal 13 Unknown Completed Universit y of Conjugate, PCV13 [facility] dical (Prevnar 13) Branch Pneumococcal Unknown Completed [place] o [facility] Polysaccharide, [facility] PPSV23 (PNEUMOVAX) Branch SARS-COV-2 COVID-19 Unknown Completed Unive rsity of [facility] [place] [facility] VACCINE 12 YRS+, Branch BIVALENT 0.3ML, IM, (PFIZER SERNA TOP) Influenza Virus Unknown Completed [facility] of Vaccine,quad [place] [facility],preserve Free [facility] 65+ (FLUAD) SARS-COV-2 COVID-19 Unknown Completed Unive rsity of MODERNA 12+ YRS [place] [facility] VACCINE [facility] SARS-COV-2 COVID-19 Unknown Completed Unive rsity of MODERNA 12+ YRS [facility] VACCINE [facility] Zoster Vaccine Unknown Completed [facility] Zoster Vaccine Unknown Completed [facility] SARS-COV-2 COVID-19 Unknown Completed Unive rsity of MODERNA 12+ YRS [place] [facility] VACCINE [facility] Influenza Virus Unknown Completed [facility] Vaccine,quad [place] [facility] 65+ (FLUAD) Influenza Virus Unknown Completed [facility] of Vaccine,quad [place] [facility] Free [facility] 65+ (FLUAD) SARS-COV-2 COVID-19 Unknown Completed Unive rsity of MODERNA 12+ YRS [place] [facility] VACCINE [facility] TDAP Unknown Completed [facility] Pneumococcal 13 Unknown Completed Universit y of Conjugate, PCV13 [place] [facility] (Prevnar 13) Branch Pneumococcal Unknown Completed [facility] o f Polysaccharide, [place] [facility] PPSV23 (PNEUMOVAX) Branch SARS-COV-2 COVID-19 Unknown Completed Unive rsity of [facility] [place] [facility] VACCINE 12 YRS+, Branch BIVALENT 0.3ML, IM, (PFIZER SERNA TOP) Influenza Virus Unknown Completed [facility] of Vaccine,quad [place] [facility],preserve Free [facility] 65+ (FLUAD) SARS-COV-2 COVID-19 Unknown Completed Unive rsity of MODERNA 12+ YRS [place] [facility] VACCINE [facility] SARS-COV-2 COVID-19 Unknown Completed Unive rsity of MODERNA 12+ YRS [place] [facility] VACCINE [facility] Zoster Vaccine Unknown Completed [facility] Zoster Vaccine Unknown Completed [facility] SARS-COV-2 COVID-19 Unknown Completed Unive rsity of MODERNA 12+ YRS [place] [facility] VACCINE [facility] Influenza Virus Unknown Completed [facility] Vaccine,quad [place] [facility] 65+ (FLUAD) Influenza Virus Unknown Completed [facility] of Vaccine,quad [place] [facility] Free [facility] 65+ (FLUAD) SARS-COV-2 COVID-19 Unknown Completed Unive rsity of MODERNA 12+ YRS [place] [facility] VACCINE [facility] TDAP Unknown Completed [facility] Pneumococcal 13 Unknown Completed Universit y of Conjugate, PCV13 [facility] dical (Prevnar 13) Branch Pneumococcal Unknown Completed University o f Polysaccharide, [place] [facility] PPSV23 (PNEUMOVAX) Branch SARS-COV-2 COVID-19 Unknown Completed Unive rsity of [facility] [place] [facility] VACCINE 12 YRS+, Branch BIVALENT 0.3ML, IM, (PFIZER SERNA TOP) Influenza Virus Unknown Completed [facility] of Vaccine,quad [place] [facility],preserve Free [facility] 65+ (FLUAD) SARS-COV-2 COVID-19 Unknown Completed Unive rsity of MODERNA 12+ YRS [place] [facility] VACCINE [facility] SARS-COV-2 COVID-19 Unknown Completed Unive rsity of MODERNA 12+ YRS [place] [facility] VACCINE [facility] Zoster Vaccine Unknown Completed [facility] Zoster Vaccine Unknown Completed [facility] SARS-COV-2 COVID-19 Unknown Completed Unive rsity of MODERNA 12+ YRS [place] [facility] VACCINE [facility] Influenza Virus Unknown Completed [facility] Vaccine,quad [place] [facility] Free [facility] 65+ (FLUAD) Influenza Virus Unknown Completed [facility] of Vaccine,quad [place] [facility] Free [facility] 65+ (FLUAD) SARS-COV-2 COVID-19 Unknown Completed Unive rsity of MODERNA 12+ YRS [place] [facility] VACCINE [facility] TDAP Unknown Completed [facility] Pneumococcal 13 Unknown Completed [facility]it y of Conjugate, PCV13 [place] [facility] (Prevnar 13) Branch Pneumococcal Unknown Completed [facility] o f Polysaccharide, [facility] ical PPSV23 (PNEUMOVAX) Branch SARS-COV-2 COVID-19 Unknown Completed Unive rsity of [facility] [place] [facility] VACCINE 12 YRS+, Branch BIVALENT 0.3ML, IM, (PFIZER SERNA TOP) Influenza Virus Unknown Completed [facility] of Vaccine,quad [place] [facility],preserve Free [facility] 65+ (FLUAD) SARS-COV-2 COVID-19 Unknown Completed Unive rsity of MODERNA 12+ YRS [facility] ical VACCINE Branch SARS-COV-2 COVID-19 Unknown Completed Unive rsity of MODERNA 12+ YRS [place] [facility] VACC[facility] Zoster Vaccine Unknown Completed [facility] Zoster Vaccine Unknown Completed [facility] SARS-COV-2 COVID-19 Unknown Completed Unive rsity of MODERNA 12+ YRS [facility] ical VACCINE Branch Influenza Virus Unknown Completed [facility] of Vaccine,quad [place] [facility] 65+ (FLUAD) Influenza Virus Unknown Completed [facility] of Vaccine,quad [place] [facility] Free [facility] 65+ (FLUAD) SARS-COV-2 COVID-19 Unknown Completed Unive rsity of MODERNA 12+ YRS [place] [facility] VACCINE [facility] TDAP Unknown Completed [facility] Pneumococcal 13 Unknown Completed [facility] of Conjugate, PCV13 [place] [facility] (Prevnar 13) Branch Pneumococcal Unknown Completed [facility] o f Polysaccharide, [place] [facility] PPSV23 (PNEUMOVAX) Branch SARS-COV-2 COVID-19 Unknown Completed Unive rsity of [facility] [place] [facility] VACCINE 12 YRS+, Branch BIVALENT 0.3ML, IM, (PFIZER SERNA TOP) Influenza Virus Unknown Completed [facility] of Vaccine,quad [place] [facility],preserve Free [facility] 65+ (FLUAD) SARS-COV-2 COVID-19 Unknown Completed Unive rsity of MODERNA 12+ YRS [place] [facility] VACCINE [facility] SARS-COV-2 COVID-19 Unknown Completed Unive rsity of MODERNA 12+ YRS [place] [facility] VACCINE [facility] Zoster Vaccine Unknown Completed [facility] Zoster Vaccine Unknown Completed [facility] SARS-COV-2 COVID-19 Unknown Completed Unive rsity of MODERNA 12+ YRS [place] [facility] VACCINE [facility] Influenza Virus Unknown Completed [facility] of Vaccine,quad [place] [facility] 65+ (FLUAD) Influenza Virus Unknown Completed [facility] of Vaccine,quad [place] [facility] Free [facility] 65+ (FLUAD) SARS-COV-2 COVID-19 Unknown Completed Unive rsity of MODERNA 12+ YRS [place] [facility] VACCINE [facility] TDAP Unknown Completed [facility] Pneumococcal 13 Unknown Completed Universit y of Conjugate, PCV13 [facility] dical (Prevnar 13) Branch Pneumococcal Unknown Completed [place] o [facility] Polysaccharide, [facility] PPSV23 (PNEUMOVAX) Branch SARS-COV-2 COVID-19 Unknown Completed Unive rsity of [facility] [place] [facility] VACCINE 12 YRS+, Branch BIVALENT 0.3ML, IM, (PFIZER SERNA TOP) Influenza Virus Unknown Completed [facility] of Vaccine,quad [place] [facility] Im,preserve Free [facility] 65+ (FLUAD) SARS-COV-2 COVID-19 Unknown Completed Unive rsity of MODERNA 12+ YRS [place] [facility] VACCINE [facility] SARS-COV-2 COVID-19 Unknown Completed Unive rsity of MODERNA 12+ YRS [place] [facility] VACCINE [facility] Zoster Vaccine Unknown Completed [facility] Zoster Vaccine Unknown Completed [facility] SARS-COV-2 COVID-19 Unknown Completed Unive rsity of MODERNA 12+ YRS [place] [facility] VACCINE [facility] Influenza Virus Unknown Completed [facility] of Vaccine,quad [place] [facility] Free [facility] 65+ (FLUAD) Influenza Virus Unknown Completed [facility] of Vaccine,quad [place] [facility] Free [facility] 65+ (FLUAD) SARS-COV-2 COVID-19 Unknown Completed Unive rsity of MODERNA 12+ YRS [place] [facility] VACCINE [facility] TDAP Unknown Completed [facility] Pneumococcal 13 Unknown Completed [facility] y of Conjugate, PCV13 [place] [facility] (Prevnar 13) Branch Pneumococcal Unknown Completed [facility] o f Polysaccharide, [place] [facility] PPSV23 (PNEUMOVAX) Branch SARS-COV-2 COVID-19 Unknown Completed Unive rsity of [facility] [place] [facility] VACCINE 12 YRS+, Branch BIVALENT 0.3ML, IM, (PFIZER SERNA TOP) Influenza Virus Unknown Completed [facility] of Vaccine,quad [place] [facility] Im,preserve Free Branch 65+ (FLUAD) SARS-COV-2 COVID-19 Unknown Completed Unive rsity of MODERNA 12+ YRS [place] [facility] VACCINE [facility] SARS-COV-2 COVID-19 Unknown Completed Unive rsity of MODERNA 12+ YRS [place] [facility] VACCINE [facility] Zoster Vaccine Unknown Completed [facility] Zoster Vaccine Unknown Completed [facility] SARS-COV-2 COVID-19 Unknown Completed Unive rsity of MODERNA 12+ YRS [place] [facility] VACCINE [facility] Influenza Virus Unknown Completed [facility] Vaccine,quad [place] [facility] Free [facility] 65+ (FLUAD) Influenza Virus Unknown Completed [facility] Vaccine,quad [place] [facility],preserve Free [facility] 65+ (FLUAD) SARS-COV-2 COVID-19 Unknown Completed Unive rsity of MODERNA 12+ YRS [place] [facility] VACCINE [facility] TDAP Unknown Completed [facility] Pneumococcal 13 Unknown Completed Universit y of Conjugate, PCV13 [facility] dical (Prevnar 13) Branch Pneumococcal Unknown Completed [facility] o f Polysaccharide, [place] [facility] PPSV23 (PNEUMOVAX) Branch SARS-COV-2 COVID-19 Unknown Completed Unive rsity of [facility] [place] [facility] VACCINE 12 YRS+, Branch BIVALENT 0.3ML, IM, (PFIZER SERNA TOP) Influenza Virus Unknown Completed [facility] Vaccine,quad [place] [facility] Im,preserve Free Branch 65+ (FLUAD) SARS-COV-2 COVID-19 Unknown Completed Unive rsity of MODERNA 12+ YRS [place] [facility] VACCINE [facility] SARS-COV-2 COVID-19 Unknown Completed Unive rsity of MODERNA 12+ YRS [place] [facility] VACCINE [facility] Zoster Vaccine Unknown Completed [facility] Zoster Vaccine Unknown Completed [facility] SARS-COV-2 COVID-19 Unknown Completed Unive rsity of MODERNA 12+ YRS [place] [facility] VACCINE [facility] Influenza Virus Unknown Completed [facility] Vaccine,quad [place] [facility] Free [facility] 65+ (FLUAD) Influenza Virus Unknown Completed [facility] Vaccine,quad [place] [facility],preserve Free [facility] 65+ (FLUAD) SARS-COV-2 COVID-19 Unknown Completed Unive rsity of MODERNA 12+ YRS [place] [facility] VACC[facility] TDAP Unknown Completed [facility] Pneumococcal 13 Unknown Completed [facility] y of Conjugate, PCV13 [place] [facility] (Prevnar 13) Branch Pneumococcal Unknown Completed [facility] o f Polysaccharide, [facility] ical PPSV23 (PNEUMOVAX) Branch SARS-COV-2 COVID-19 Unknown Completed Unive rsity of [facility] [place] [facility] VACCINE 12 YRS+, Branch BIVALENT 0.3ML, IM, (PFIZER SERNA TOP) Influenza Virus Unknown Completed [facility] Vaccine,quad [place] [facility] Im,preserve Free Branch 65+ (FLUAD) SARS-COV-2 COVID-19 Unknown Completed Unive rsity of MODERNA 12+ YRS [facility] ical VACCINE Branch SARS-COV-2 COVID-19 Unknown Completed Unive rsity of MODERNA 12+ YRS [place] [facility] VACCINE [facility] Zoster Vaccine Unknown Completed [facility] Zoster Vaccine Unknown Completed [facility] SARS-COV-2 COVID-19 Unknown Completed Unive rsity of MODERNA 12+ YRS [facility] ical VACCINE Branch Influenza Virus Unknown Completed [facility] Vaccine,quad [place] [facility] Free [facility] 65+ (FLUAD) Influenza Virus Unknown Completed [facility] Vaccine,quad [place] [facility] Free [facility] 65+ (FLUAD) SARS-COV-2 COVID-19 Unknown Completed Unive rsity of MODERNA 12+ YRS [place] [facility] VACCINE [facility] TDAP Unknown Completed [facility] Pneumococcal 13 Unknown Completed [facility] of Conjugate, PCV13 [place] [facility] (Prevnar 13) Branch Pneumococcal Unknown Completed [facility] o f Polysaccharide, [place] [facility] PPSV23 (PNEUMOVAX) Branch SARS-COV-2 COVID-19 Unknown Completed Unive rsity of [facility] [place] [facility] VACCINE 12 YRS+, Branch BIVALENT 0.3ML, IM, (PFIZER SERNA TOP) Influenza Virus Unknown Completed [facility] of Vaccine,quad [place] [facility] Im,preserve Free Branch 65+ (FLUAD) SARS-COV-2 COVID-19 Unknown Completed Unive rsity of MODERNA 12+ YRS [place] [facility] VACCINE [facility] SARS-COV-2 COVID-19 Unknown Completed Unive rsity of MODERNA 12+ YRS [place] [facility] VACCINE [facility] Zoster Vaccine Unknown Completed [facility] Zoster Vaccine Unknown Completed [facility] SARS-COV-2 COVID-19 Unknown Completed Unive rsity of MODERNA 12+ YRS [place] [facility] VACCINE [facility] Influenza Virus Unknown Completed [facility] Vaccine,quad [place] [facility] Free [facility] 65+ (FLUAD) Influenza Virus Unknown Completed [facility] Vaccine,quad [place] [facility],preserve Free [facility] 65+ (FLUAD) SARS-COV-2 COVID-19 Unknown Completed Unive rsity of MODERNA 12+ YRS [place] [facility] VACCINE [facility] TDAP Unknown Completed [facility] Pneumococcal 13 Unknown Completed Universit y of Conjugate, PCV13 [facility] dical (Prevnar 13) Branch Pneumococcal Unknown Completed [place] [facility] Polysaccharide, [facility] PPSV23 (PNEUMOVAX) Branch SARS-COV-2 COVID-19 Unknown Completed Unive rsity of [facility] [place] [facility] VACCINE 12 YRS+, Branch BIVALENT 0.3ML, IM, (PFIZER SERNA TOP) Influenza Virus Unknown Completed [facility] Vaccine,quad [place] [facility] Im,preserve Free Branch 65+ (FLUAD) SARS-COV-2 COVID-19 Unknown Completed Unive rsity of MODERNA 12+ YRS [place] [facility] VACCINE [facility] SARS-COV-2 COVID-19 Unknown Completed Unive rsity of MODERNA 12+ YRS [place] [facility] VACCINE [facility] Zoster Vaccine Unknown Completed [facility] Zoster Vaccine Unknown Completed [facility] SARS-COV-2 COVID-19 Unknown Completed Unive rsity of MODERNA 12+ YRS [place] [facility] VACCINE [facility] Influenza Virus Unknown Completed [facility] Vaccine,quad [place] [facility] Im,preserve Free Branch 65+ (FLUAD) Influenza Virus Unknown Completed [facility] Vaccine,quad [place] Medica l Im,preserve Free Branch 65+ (FLUAD) SARS-COV-2 COVID-19 Unknown Completed Unive rsity of MODERNA 12+ YRS [place] [facility] VACCINE Branch TDAP Unknown Completed [facility] Pneumococcal 13 Unknown Completed Universit y of Conjugate, PCV13 [place] [facility] (Prevnar 13) Branch Pneumococcal Unknown Completed University o f Polysaccharide, [place] [facility] PPSV23 (PNEUMOVAX) Branch SARS-COV-2 COVID-19 Unknown Completed Unive rsity of PATRICIA-SUCROSE [place] [facility] VACCINE 12 YRS+, Branch BIVALENT 0.3ML, IM, (PFIZER SERNA TOP) Influenza Virus Unknown Completed Universit y of Vaccine,quad [place] [facility] Im,preserve Free Branch 65+ (FLUAD) SARS-COV-2 COVID-19 Unknown Completed Unive rsity of MODERNA 12+ YRS [place] [facility] VACCINE Branch SARS-COV-2 COVID-19 Unknown Completed Unive rsity of MODERNA 12+ YRS [place] [facility] VACCINE [facility] Zoster Vaccine Unknown Completed [facility] Zoster Vaccine Unknown Completed [facility] SARS-COV-2 COVID-19 Unknown Completed Unive rsity of MODERNA 12+ YRS [place] [facility] VACCINE Branch Influenza Virus Unknown Completed Universit y of Vaccine,quad [place] [facility] Im,preserve Free Branch 65+ (FLUAD) Influenza Virus Unknown Completed Universit y of Vaccine,quad [place] [facility] Im,preserve Free Branch 65+ (FLUAD) SARS-COV-2 COVID-19 Unknown Completed Unive rsity of MODERNA 12+ YRS [place] [facility] VACCINE [facility] TDAP Unknown Completed [facility] Pneumococcal 13 Unknown Completed Universit y of Conjugate, PCV13 [facility] dical (Prevnar 13) Branch Pneumococcal Unknown Completed University o f Polysaccharide, [place] [facility] PPSV23 (PNEUMOVAX) Branch SARS-COV-2 COVID-19 Unknown Completed Unive rsity of PATRICIA-SUCROSE [place] [facility] VACCINE 12 YRS+, Branch BIVALENT 0.3ML, IM, (PFIZER SERNA TOP) Influenza Virus Unknown Completed Universit y of Vaccine,quad [place] [facility] Im,preserve Free Branch 65+ (FLUAD) SARS-COV-2 COVID-19 Unknown Completed Unive rsity of MODERNA 12+ YRS [place] [facility] VACCINE Branch SARS-COV-2 COVID-19 Unknown Completed Unive rsity of MODERNA 12+ YRS [place] [facility] VACCINE Branch Zoster Vaccine Unknown Completed [facility] Zoster Vaccine Unknown Completed [facility] SARS-COV-2 COVID-19 Unknown Completed Unive rsity of MODERNA 12+ YRS [place] [facility] VACCINE Branch Influenza Virus Unknown Completed Universit y of Vaccine,quad [place] [facility] Im,preserve Free Branch 65+ (FLUAD) Influenza Virus Unknown Completed Universit y of Vaccine,quad [place] [facility] Im,preserve Free Branch 65+ (FLUAD) SARS-COV-2 COVID-19 Unknown Completed Unive rsity of MODERNA 12+ YRS [place] [facility] VACCINE [facility] TDAP Unknown Completed [facility] Pneumococcal 13 Unknown Completed Universit y of Conjugate, PCV13 [facility] dical (Prevnar 13) Branch Pneumococcal Unknown Completed University o f Polysaccharide, [facility] ical PPSV23 (PNEUMOVAX) Branch SARS-COV-2 COVID-19 Unknown Completed Unive rsity of [facility]CR[facility] [place] [facility] VACCINE 12 YRS+, Branch BIVALENT 0.3ML, IM, (PFIZER SERNA TOP) Influenza Virus Unknown Completed Universit y of Vaccine,quad [place] [facility] Im,preserve Free Branch 65+ (FLUAD) Influenza High Dose Unknown Completed Unive rsity of [facility] SARS-COV-2 COVID 19 Unknown Completed Unive rsity of PATRICIA SUCROSE [place] [facility] VACCINE 12+, Branch [id number], 0.3 ML (30 MCG), IM PFIZER (SERNA TOP) SARS-COV-2 COVID-19 Unknown Completed Unive rsity of MODERNA 12+ YRS [place] [facility] VACCINE Branch SARS-COV-2 COVID-19 Unknown Completed Unive rsity of MODERNA 12+ YRS [place] [facility] VACCINE Branch Zoster Vaccine Unknown Completed [facility] Zoster Vaccine Unknown Completed [facility] SARS-COV-2 COVID-19 Unknown Completed Unive rsity of MODERNA 12+ YRS [place] [facility] VACCINE Branch Influenza Virus Unknown Completed Universit y of Vaccine,quad [place] [facility] Im,preserve Free Branch 65+ (FLUAD) Influenza Virus Unknown Completed Universit y of Vaccine,quad [place] [facility] Im,preserve Free Branch 65+ (FLUAD) SARS-COV-2 COVID-19 Unknown Completed Unive rsity of MODERNA 12+ YRS [place] [facility] VACCINE Branch TDAP Unknown Completed [facility] Pneumococcal 13 Unknown Completed Universit y of Conjugate, PCV13 [place] [facility] (Prevnar 13) Branch Pneumococcal Unknown Completed University o f Polysaccharide, [facility] ical PPSV23 (PNEUMOVAX) Branch SARS-COV-2 COVID-19 Unknown Completed Unive rsity of [facility] [place] [facility] VACCINE 12 YRS+, Branch BIVALENT 0.3ML, IM, (PFIZER SERNA TOP) Influenza Virus Unknown Completed Universit y of Vaccine,quad [place] [facility] Im,preserve Free Branch 65+ (FLUAD) Influenza High Dose Unknown Completed Unive rsity of [facility] [place] SARS-COV-2 COVID 19 Unknown Completed Unive rsity of PATRICIA [facility]CR[facility] [place] [facility] VACCINE 12+, Branch [id number], 0.3 ML (30 MCG), IM PFIZER (SERNA TOP) SARS-COV-2 COVID-19 Unknown Completed Unive rsity of MODERNA 12+ YRS [place] [facility] VACCINE Branch SARS-COV-2 COVID-19 Unknown Completed Unive rsity of MODERNA 12+ YRS [facility] ical VACCINE Branch Zoster Vaccine Unknown Completed [facility] Zoster Vaccine Unknown Completed [facility] SARS-COV-2 COVID-19 Unknown Completed Unive rsity of MODERNA 12+ YRS [facility] ical VACCINE Branch Influenza Virus Unknown Completed Universit y of Vaccine,quad [place] [facility] Im,preserve Free Branch 65+ (FLUAD) Influenza Virus Unknown Completed Universit y of Vaccine,quad [place] [facility] Im,preserve Free Branch 65+ (FLUAD) SARS-COV-2 COVID-19 Unknown Completed Unive rsity of MODERNA 12+ YRS [facility] ical VACCINE Branch TDAP Unknown Completed [facility] Pneumococcal 13 Unknown Completed Universit y of Conjugate, PCV13 [facility] dical (Prevnar 13) Branch Pneumococcal Unknown Completed [place] o f Polysaccharide, [facility] PPSV23 (PNEUMOVAX) Branch SARS-COV-2 COVID-19 Unknown Completed Unive rsity of [facility]RIC[facility]CR[facility] [place] [facility] VACCINE 12 YRS+, Branch BIVALENT 0.3ML, IM, (PFIZER SERNA TOP) Influenza Virus Unknown Completed Universit y of Vaccine,quad [place] [facility] Im,preserve Free Branch 65+ (FLUAD) Influenza High Dose Unknown Completed Unive rsity of [facility] [place] SARS-COV-2 COVID 19 Unknown Completed Unive rsity of PATRICIA SUCROSE [place] [facility] VACCINE 12+, Branch [id number], 0.3 ML (30 MCG), IM PFIZER (SERNA TOP) SARS-COV-2 COVID-19 Unknown Completed Unive rsity of MODERNA 12+ YRS [place] [facility] VACCINE Branch SARS-COV-2 COVID-19 Unknown Completed Unive rsity of MODERNA 12+ YRS [facility] ical VACCINE Branch Zoster Vaccine Unknown Completed [facility] Zoster Vaccine Unknown Completed [facility] SARS-COV-2 COVID-19 Unknown Completed Unive rsity of MODERNA 12+ YRS [facility] ical VACCINE Branch Influenza Virus Unknown Completed Universit y of Vaccine,quad [place] [facility] Im,preserve Free Branch 65+ (FLUAD) Influenza Virus Unknown Completed Universit y of Vaccine,quad [place] [facility] Im,preserve Free Branch 65+ (FLUAD) SARS-COV-2 COVID-19 Unknown Completed Unive rsity of MODERNA 12+ YRS [facility] ica VACCINE Branch TDAP Unknown Completed [facility] Pneumococcal 13 Unknown Completed Universit y of Conjugate, PCV13 [facility] dical (Prevnar 13) Branch Pneumococcal Unknown Completed [place] o Polysaccharide, [facility] PPSV23 (PNEUMOVAX) Branch SARS-COV-2 COVID-19 Unknown Completed Unive rsity of [facility] [place] [facility] VACCINE 12 YRS+, Branch BIVALENT 0.3ML, IM, (PFIZER SERNA TOP) Influenza Virus Unknown Completed Universit y of Vaccine,quad [place] [facility] Im,preserve Free Branch 65+ (FLUAD) Influenza High Dose Unknown Completed Unive rsity of [facility] [place] SARS-COV-2 COVID 19 Unknown Completed Unive rsity of PATRICIA [facility]CR[facility] [place] [facility] VACCINE 12+, Branch [id number], 0.3 ML (30 MCG), IM PFIZER (SERNA TOP) SARS-COV-2 COVID-19 Unknown Completed Unive rsity of MODERNA 12+ YRS [facility] ical VACCINE Branch SARS-COV-2 COVID-19 Unknown Completed Unive rsity of MODERNA 12+ YRS [facility] ical VACCINE Branch Zoster Vaccine Unknown Completed [facility] Zoster Vaccine Unknown Completed [facility] SARS-COV-2 COVID-19 Unknown Completed Unive rsity of MODERNA 12+ YRS [facility] ical VACCINE Branch Influenza Virus Unknown Completed Universit y of Vaccine,quad [place] [facility] Im,preserve Free Branch 65+ (FLUAD) Influenza Virus Unknown Completed Universit y of Vaccine,quad [place] [facility] Im,preserve Free Branch 65+ (FLUAD) SARS-COV-2 COVID-19 Unknown Completed Unive rsity of MODERNA 12+ YRS [facility] ical VACCINE Branch TDAP Unknown Completed [facility] Pneumococcal 13 Unknown Completed Universit y of Conjugate, PCV13 [facility] dical (Prevnar 13) Branch Pneumococcal Unknown Completed [place] o f Polysaccharide, [facility] ical PPSV23 (PNEUMOVAX) Branch SARS-COV-2 COVID-19 Unknown Completed Unive rsity of [facility]RICIA-[facility]CR[facility] [place] [facility] VACCINE 12 YRS+, Branch BIVALENT 0.3ML, IM, (PFIZER SERNA TOP) Influenza Virus Unknown Completed Universit y of Vaccine,quad [place] [facility] Im,preserve Free Branch 65+ (FLUAD) Influenza High Dose Unknown Completed Unive rsity of [facility] [place] SARS-COV-2 COVID 19 Unknown Completed Unive rsity of PATRICIA SUCROSE [place] [facility] VACCINE 12+, Branch , 0.3 ML (30 MCG), IM PFIZER (SERNA TOP) Vital Signs Vital Name Observation Time Observation Value Comments Source Systolic blood 2023-09-10 16:33:00 135 mm[Hg] Univer sity of pressure [facility] Diastolic blood 2023-09-10 16:33:00 82 mm[Hg] Unive rsity of [facility] Heart rate 2023-09-10 16:33:00 84 /min [facility] Body temperature 2023-09-10 16:33:00 36.5 Ann [facility] 2023-09-10 16:33:00 152.4 cm [facility] Body weight 2023-09-10 16:33:00 76.068 kg [facility] BMI 2023-09-10 16:33:00 32.75 kg/m2 [facility] Oxygen saturation in 2023-09-10 16:33:00 96 /min [facility] Arterial blood by [facility] Pulse oximetry Branch Systolic blood 2023-08-09 15:54:00 118 mm[Hg] Univer sity of pressure [facility] Diastolic blood 2023-08-09 15:54:00 76 mm[Hg] Unive rsity of [facility] Heart rate 2023-08-09 15:54:00 88 /min [facility] Body temperature 2023-08-09 15:54:00 36.5 Ann [facility] ers[facility] [place] [facility] Respiratory rate 2023-08-09 15:54:00 18 /min Univ ers[facility] [place] [facility] Body weight 2023-08-09 15:54:00 78.427 kg [facility] [place] [facility] BMI 2023-08-09 15:54:00 33.77 kg/m2 [facility] [place] [facility] Oxygen saturation in 2023-08-09 15:54:00 98 /min University of Arterial blood by [facility] Pulse oximetry Branch Systolic blood 2023-06-08 18:32:00 108 mm[Hg] Univer sity of pressure [place] [facility] Diastolic blood 2023-06-08 18:32:00 69 mm[Hg] Unive rsity of pressure [place] [facility] Heart rate 2023-06-08 18:32:00 88 /min [facility] [place] [facility] Body height 2023-06-08 18:32:00 152.4 cm [facility] [place] [facility] Body weight 2023-06-08 18:32:00 77.111 kg [facility] [place] [facility] BMI 2023-06-08 18:32:00 33.20 kg/m2 [facility] [place] [facility] Oxygen saturation in 2023-06-08 18:32:00 94 /min University of Arterial blood by [facility] Pulse oximetry Branch Systolic blood 2023-03-19 21:21:00 130 mm[Hg] Univer sity of pressure [place] [facility] Diastolic blood 2023-03-19 21:21:00 78 mm[Hg] Unive rsity of pressure [place] [facility] Heart rate 2023-03-19 21:21:00 98 /min [facility] [place] [facility] Body temperature 2023-03-19 21:21:00 36.56 Ann Univ ers[facility] [place] [facility] Respiratory rate 2023-03-19 21:21:00 18 /min Univ ers[facility] [place] [facility] Body height 2023-03-19 21:21:00 152.4 cm [facility] [place] [facility] Body weight 2023-03-19 21:21:00 77.883 kg [facility] [place] [facility] BMI 2023-03-19 21:21:00 33.53 kg/m2 [facility] [place] [facility] Oxygen saturation in 2023-03-19 21:21:00 95 /min [facility] Arterial blood by [place] [facility] Pulse oximetry Branch Systolic blood 2023-03-02 13:55:00 106 mm[Hg] Univer sity of pressure [place] [facility] Diastolic blood 2023-03-02 13:55:00 68 mm[Hg] Unive rsity of pressure [place] [facility] Heart rate 2023-03-02 13:55:00 88 /min [facility] [place] [facility] Body temperature 2023-03-02 13:55:00 36.78 Ann [facility] ers[facility] [place] [facility] Body height 2023-03-02 13:55:00 152.4 cm [facility] [place] [facility] Body weight 2023-03-02 13:55:00 77.066 kg [facility] [place] [facility] BMI 2023-03-02 13:55:00 33.18 kg/m2 [facility] [place] [facility] Oxygen saturation in 2023-03-02 13:55:00 97 /min University of Arterial blood by [facility] Pulse oximetry Branch Systolic blood 2023-02-16 15:57:00 100 mm[Hg] Univer sity of pressure [place] [facility] Diastolic blood 2023-02-16 15:57:00 69 mm[Hg] Unive rsity of pressure [place] [facility] Heart rate 2023-02-16 15:57:00 93 /min [facility] [place] [facility] Body height 2023-02-16 15:57:00 152.4 cm [facility] [place] [facility] Body weight 2023-02-16 15:57:00 78.881 kg [facility] [place] [facility] BMI 2023-02-16 15:57:00 33.96 kg/m2 [facility] [place] [facility] Oxygen saturation in 2023-02-16 15:57:00 96 /min University of Arterial blood by [place] [facility] [place] Pulse oximetry Branch Systolic blood 2023-02-09 12:22:00 145 mm[Hg] Univer sity of pressure [place] [facility] Diastolic blood 2023-02-09 12:22:00 77 mm[Hg] Unive rsity of pressure [place] [facility] Heart rate 2023-02-09 12:22:00 81 /min [facility] [place] [facility] Body temperature 2023-02-09 12:22:00 36.61 Ann Univ ersity of [facility] Respiratory rate 2023-02-09 12:22:00 18 /min Univ ersity of [facility] Oxygen saturation in 2023-02-09 12:22:00 95 /min University of Arterial blood by [facility] Pulse oximetry Branch Body height 2023-02-06 20:45:00 152.4 cm Universi ty of [facility] Body weight 2023-02-06 20:45:00 80.3 kg Universi ty of [facility] BMI 2023-02-06 20:45:00 34.57 kg/m2 Universi ty of [facility] Systolic blood 2022-08-21 14:17:00 109 mm[Hg] Univer sity of pressure [facility] Diastolic blood 2022-08-21 14:17:00 69 mm[Hg] Unive rsity of [facility] Heart rate 2022-08-21 14:17:00 79 /min Universi ty of [facility] Body temperature 2022-08-21 14:17:00 36.61 Ann [facility] [place] ersity of [facility] Body height 2022-08-21 14:17:00 152.4 cm [facility] [place] [facility] [place] Body weight 2022-08-21 14:17:00 80.287 kg Universi ty of [facility] BMI 2022-08-21 14:17:00 34.57 kg/m2 Universi ty of [facility] Oxygen saturation in 2022-08-21 14:17:00 96 /min University of Arterial blood by [facility] Pulse oximetry Branch height 2021-12-01 09:40:00 61 [in_i] Common [facility] weight 2021-12-01 09:40:00 172.4 [lb_av] Common [facility] temperature 2021-12-01 09:40:00 95.7 [degF] Common [facility] bmi 2021-12-01 09:40:00 32.57 kg/m2 [facility] oximetry 2021-12-01 09:40:00 98 % [facility] respiratory rate 2021-12-01 09:40:00 16 /min Comm on [facility] blood pressure 2021-12-01 09:40:00 120 mm[Hg] [facility] blood pressure 2021-12-01 09:40:00 58 mm[Hg] [facility] diastolic [facility] height 2021-08-29 09:40:00 61 [in_i] [facility] weight 2021-08-29 09:40:00 172.0 [lb_av] [facility] temperature 2021-08-29 09:40:00 96.6 [degF] [facility] bmi 2021-08-29 09:40:00 32.5 kg/m2 [facility] oximetry 2021-08-29 09:40:00 95 % [facility] respiratory rate 2021-08-29 09:40:00 18 /min [facility] blood pressure 2021-08-29 09:40:00 110 mm[Hg] [facility] - systolic [facility] blood pressure 2021-08-29 09:40:00 70 mm[Hg] [facility] diastolic [facility] height 2021-08-29 10:00:00 61 [in_i] [facility] weight 2021-08-29 10:00:00 172 [lb_av] [facility] temperature 2021-08-29 10:00:00 96.6 [degF] [facility] bmi 2021-08-29 10:00:00 32.5 kg/m2 [facility] blood pressure 2021-08-29 10:00:00 110 mm[Hg] [facility] - systolic [facility] blood pressure 2021-08-29 10:00:00 70 mm[Hg] [facility] diastolic [facility] height 2021-06-02 08:40:00 61 [in_i] [facility] weight 2021-06-02 08:40:00 168 [lb_av] [facility] temperature 2021-06-02 08:40:00 97.8 [degF] [facility] bmi 2021-06-02 08:40:00 31.74 kg/m2 [facility] height 2021-02-10 11:20:00 61.00 [in_i] [facility] weight 2021-02-10 11:20:00 169.2 [lb_av] [facility] temperature 2021-02-10 11:20:00 97.2 [degF] [facility] bmi 2021-02-10 11:20:00 31.97 kg/m2 [facility] oximetry 2021-02-10 11:20:00 98 % [facility] respiratory rate 2021-02-10 11:20:00 16 /min Comm on [facility] blood pressure 2021-02-10 11:20:00 136 mm[Hg] [facility] - systolic [facility] blood pressure 2021-02-10 11:20:00 61 mm[Hg] [facility] diastolic [facility] Procedures Procedure Date / Time Performing Clinician Source Performed XR KNEE 3 VW RIGHT 2023-08-09 16:07:03 [facility] EXTERNAL PROVIDER 2023-06-25 05:01:00 Doctor Unassigned, No [facility] XR ANKLE 3+ VW LEFT 2023-06-08 19:51:35 Ignacio Thornton [facility] PATIENT QUESTIONNAIRE 2023-03-06 05:01:00 Doctor Unassigned, No [facility] ASSIGNMENT OF BENEFITS 2023-02-16 15:39:40 Doctor Unassigned, No [facility] POCT GLUCOSE (AUTOMATED) 2023-02-09 13:14:00 Anselmo Alejandro [facility] PHOSPHORUS 2023-02-09 11:28:00 Anselmo Alejandro [facility] MAGNESIUM 2023-02-09 11:28:00 [facility]OLIC PANEL 2023-02-09 11:28:00 [facility] (NA, K, CL, CO2, Medical Branch GLUCOSE, BUN, CREATININE, CA) CBC WITH DIFF 2023-02-09 11:28:00 [facility] PO[facility]UCOSE (AUTOMATED) 2023-02-09 01:58:00 Anselmo Alejandro [facility] POCT GLUCOSE (AUTOMATED) 2023-02-08 22:24:00 Javon [facility] POCT GLUCOSE (AUTOMATED) 2023-02-08 16:38:00 Javon [facility] POCT GLUCOSE (AUTOMATED) 2023-02-08 12:21:00 Javon [facility] PHOSPHORUS 2023-02-08 10:23:00 Javon [facility] MAGNESIUM 2023-02-08 10:23:00 [facility] HEPATIC FUNCTION PANEL 2023-02-08 10:23:00 [id number] (ALB,T.PRO,BILI [facility] Branch T,BU/BC,ALT,AST,ALK PHOS) BASIC METABOLIC PANEL 2023-02-08 10:23:00 [facility] (NA, K, CL, CO2, Medical Branch GLUCOSE, BUN, CREATININE, CA) CBC WITH DIFF 2023-02-08 10:23:00 Javon [facility] POCT GLUCOSE (AUTOMATED) 2023-02-08 02:25:00 Anselmo Alejandro [facility] POCT GLUCOSE (AUTOMATED) 2023-02-07 23:05:00 Javon [facility] POCT GLUCOSE (AUTOMATED) 2023-02-07 16:36:00 Javon [facility] POCT GLUCOSE (AUTOMATED) 2023-02-07 13:12:00 Anselmo Alejandro [facility] PHOSPHORUS 2023-02-07 08:14:00 Javon [facility] MAGNESIUM 2023-02-07 08:14:00 Javon [facility] TROPONIN I 2023-02-07 08:14:00 Javon [facility] THYROID STIMULATING 2023-02-07 08:14:00 Javon [facility] HORMONE [facility] HEPATIC FUNCTION PANEL 2023-02-07 08:14:00 Javon [facility] ([id number]) (ALB,T.PRO,BILI [facility] T,BU/BC,ALT,AST,ALK PHOS) BASIC METABOLIC PANEL 2023-02-07 08:14:00 Javon [facility] (NA, K, CL, CO2, Medical Branch GLUCOSE, BUN, CREATININE, CA) LIPID PANEL 2023-02-07 08:14:00 Javon [facility] ([id number])(TOTAL [facility] CHOLESTEROL, TRIGLYCERIDES, HDL) CBC WITH DIFF 2023-02-07 08:14:00 Javon [facility] GLYCOSYLATED HEMOGLOBIN 2023-02-07 08:14[facility] N-TERMINAL PRO-BNP 2023-02-07 08:14:00 An[facility]mo [facility] POCT GLUCOSE (AUTOMATED) 2023-02-07 01:52:00 Anselmo Alejandro [facility] URINALYSIS 2023-02-07 00:33:[address] [facility] CT ABDOMEN PELVIS WO 2023-02-06 22:58:00 Javon [facility] CONTRAST [facility] PHOSPHORUS 2023-02-06 22:33:00 Javon [facility] LIPASE 2023-02-06 22:33:00 Javon [facility] MAGNESIUM 2023-02-06 22:33:00 Javon [facility] TROPONIN I 2023-02-06 22:33:00 Javon [facility] HEPATIC FUNCTION PANEL 2023-02-06 22:33:00 [facility] ([id number]) (ALB,T.PRO,BILI [facility] T,BU/BC,ALT,AST,ALK PHOS) BASIC METABOLIC PANEL 2023-02-06 22:33:00 [facility] (NA, K, CL, CO2, Medical Branch GLUCOSE, BUN, CREATININE, CA) CBC WITH DIFF 2023-02-06 22:33:00 [facility] N-TERMINAL PRO-BNP 2023-02-06 22:33:00 [facility] PHYSICIAN ORDERS 2022-11-07 06:01:00 Doctor Unassigned, No [facility] Name [facility] POCT URINALYSIS 2022-08-21 17:40:00 Hillary [facility] CBC WITH DIFF 2022-08-21 15:38:00 Hillary [facility] EXTERNAL PROVIDER 2022-08-01 05:01:00 Doctor Unassigned, No [facility] RECORDS Name [facility] FLU 2022-07-31 15:12:29 Doctor Unassigned, No [facility] VACC(),65+YR,0. [facility] 5 ML,IM,ADJUVANTED,QUAD(FL UAD) THYROID STIMULATING 2022-07-21 13:05:00 Ignacio Thornton [facility] HORMONE [facility] SARS-COV-2 COVID-19 2022-07-03 17:15:35 [facility]igned[facility] No [facility]IA-SUCROSE VACCINE 12 [facility] YRS+, BIVALENT 0.3ML, IM, (PFIZER SERNA TOP BOOSTER) NM BRAIN SPECT W I 123 2021-11-16 21:54:[address] [facility] DATSCAN Plan of Care Planned Activity Planned Date Details Comments Source Future Scheduled 2023-08-08 [facility]ening for [facility] Test 20:44:02 malignant neoplasm of colon (procedure) [code = 176635411] Future Scheduled 2023-08-08 Screening for [facility] Test 20:44:02 malignant neoplasm of colon (procedure) [code = 816516999] Future Scheduled 2023-08-08 Screening for [facility] Test 20:44:02 malignant neoplasm of colon (procedure) [code = 123131254] Future Scheduled 2023-08-08 65+ PNEUMOCOCCAL [facility] Test 20:44:02 VACCINE (1 - PCV) [code = 65+ PNEUMOCOCCAL VACCINE (1 - PCV)] Future Scheduled 2023-08-08 Hepatitis C screening [facility] Test 20:44:02 (procedure) [code = 317298535] Future Scheduled 2023-08-08 BREAST CANCER [facility] Test 20:44:02 SCREENING [code = BREAST CANCER SCREENING] Future Scheduled 2023-08-08 Screening for [facility] Test 20:44:02 malignant neoplasm of colon (procedure) [code = 014335751] Future Scheduled 2023-08-08 Screening for [facility] Test 20:44:02 malignant neoplasm of colon (procedure) [code = 750033536] Future Scheduled 2023-08-08 SHINGLES VACCINES (1 Met [facility] Test 20:44:02 of 2) [code = SHINGLES VACCINES (1 of 2)] Future Scheduled 2023-08-08 COVID-19 VACCINE (4 - [facility] Test 20:44:02 season) [code = COVID-19 VACCINE (4 - season)] Future Scheduled 2023-08-08 INFLUENZA VACCINE (#1) [facility] Test 20:44:02 [code = INFLUENZA VACCINE (#1)] Future Scheduled 2023-01-18 65+ PNEUMOCOCCAL [facility] Test 06:36:57 VACCINE (1 - PCV) [code = 65+ PNEUMOCOCCAL VACCINE (1 - PCV)] Future Scheduled 2023-01-18 Hepatitis C screening [facility] Test 06:36:57 (procedure) [code = 637424575] Future Scheduled 2023-01-18 SHINGLES VACCINES (1 Met [facility] Test 06:36:57 of 2) [code = SHINGLES VACCINES (1 of 2)] Future Scheduled 2023-01-18 BREAST CANCER [facility] Test 06:36:57 SCREENING [code = BREAST CANCER SCREENING] Future Scheduled 2023-01-18 COLONOSCOPY SCREENING [facility] Test 06:36:57 [code = COLONOSCOPY SCREENING] Future Scheduled 2023-01-18 COVID-19 VACCINE (4 - [facility] Test 06:36:57 Booster for Moderna series) [code = COVID-19 VACCINE (4 - Booster for Moderna series)] Future Scheduled 2023-01-18 [facility]INE [facility] 06:36:57 [code = INFLUENZA VACCINE] Future Scheduled 2022-02-13 65+ [facility]OCCAL [facility] Test 16:16:29 VACCINE (1 of 4 - PCV13) [code = 65+ PNEUMOCOCCAL VACCINE (1 of 4 - PCV13)] Future Scheduled 2022-02-13 Hepatitis C screening [facility] Test 16:16:29 (procedure) [code = 364063193] Future Scheduled 2022-02-13 BREAST CANCER [facility] Test 16:16:29 SCREENING [code = BREAST CANCER SCREENING] Future Scheduled 2022-02-13 COLONOSCOPY SCREENING [facility] Test 16:16:29 [code = COLONOSCOPY SCREENING] Future Scheduled 2022-02-13 SHINGLES VACCINES (#1) [facility] Test 16:16:29 [code = SHINGLES VACCINES (#1)] Future Scheduled 2022-02-13 INFLUENZA VACCINE [facility] Test 16:16:29 [code = INFLUENZA VACCINE] Encounters Start End Encounter Admission Attending Care Care Encounter Source Date/Time Date/Time Type Type Clinicians Facility Department ID 2023-08-27 Outpatient [facility] [id number] Common 16:04:00 [id number] [facility] 2023-08-20 Outpatient [facility] [id number] Common 10:13:00 [id number] [facility] 2023-02-16 Outpatient STLC [facility] [id number] Common 11:04:00 [id number] [facility] 2022-11-16 Outpatient MENDOZA, Na [facility] [id number] 2 Common 14:40:00 [id number] [facility] 2021-12-01 Outpatient Mendoza, Na [facility] [id number] 2 Common 09:31:00 [id number] [facility] 2021-11-29 Outpatient Mendoza, Na STLMLC STLMLC [id number] 2 Common 08:18:01 [facility] 2021-11-09 Outpatient Mendoza, Na STLMLC STLMLC [id number] 2 Common 14:07:56 [id number] [facility] 2021-11-09 Outpatient Mendoza, Na STLMLC STLMLC [id number] 2 Common 14:01:51 [id number] [facility] 2021-11-09 Outpatient Mendoza, Na STLMLC STLMLC [id number] 2 Common 13:39:08 [id number] [facility] 2021-11-09 Outpatient Mendoza, Na STLMLC STLMLC [id number] 2 Common 13:35:24 [id number] [facility] 2021-11-09 Outpatient Mendoza, Na STLMLC STLMLC [id number] 2 Common 13:34:10 [id number] [facility] 2021-11-09 Outpatient Mendoza, Na STLMLC STLMLC [id number] 2 Common 12:57:22 [id number] [facility] 2021-11-09 Outpatient Mendoza, Na STLMLC STLMLC [id number] 2 Common 12:45:46 [id number] [facility] 2021-11-09 Outpatient Mendoza, Na STLMLC STLMLC [id number] 2 Common 12:40:05 [id number] [facility] 2021-11-09 Outpatient Mendoza, Na STLMLC STLMLC [id number] 2 Common 12:31:03 [id number] [facility] 2021-11-09 Outpatient Mendoza, Na STLMLC STLMLC [id number] 2 Common 12:03:47 [id number] [facility] 2021-11-09 Outpatient Mendoza, Na STLMLC STLMLC [id number] 2 Common 12:03:01 [id number] [facility] 2021-11-09 Outpatient Mendoza, Na STLMLC STLMLC [id number] 2 Common 11:36:28 [id number] [facility] 2021-11-09 Outpatient Mendoza, Na STLMLC STLC [id number] 2 Common 11:35:53 [id number] [facility] 2021-11-09 Outpatient Mendoza, Na STLMLC STLMLC [id number] 2 Common 11:18:12 [id number] [facility] 2021-11-09 Outpatient Mendoza, Na STLMLC STLMLC [id number] 2 Common 11:17:41 [id number] [facility] 2021-11-09 Outpatient Mendoza, Na [facility] [id number] 2 Common 11:04:41 [id number] [facility] 2024-01-07 2024-01-07 Outpatient Frances [facility] [id number] Univers 09:00:00 09:00:00 IGNACIO shelley of [facility] 2023-09-14 2023-09-14 Refill Hillary [facility] 1..840.114 [id number] Univers 00:00:00 00:00:00 [employer] 350.1.13.10 it y of [place] 4.2.7.2.686 Telly as JIGAR?BLEA [phone] [facility] [address] [facility] OFFICE [facility] 2023-09-11 2023-09-11 Patient Doctor [facility] 1..840.114 [id number] Univers 00:00:00 00:00:00 Secure Msg Unassigned, HEALTH 350.1.13.10 ity of [place] 4.2.7.2.686 Telly as JIGAR?BLEA [id number] [facility] [address] [facility] OFFICE [facility] 2023-09-10 2023-09-10 [employer], [place] - Db [facility] 1.2.840.1 14 [id number] Univers 12:00:00 12:15:00 Visit Ignacio Thornton [facility] 350.1.13.10 ity of [place] 4.2.7.2.686 Telly as JIGAR?BLEA [id number] [facility] [address] [facility] OFFICE [facility] 2023-09-10 2023-09-10 Outpatient Frances [facility] [id number] Univers 11:00:00 12:11:30 IGNACIO rosa [facility] 2023-09-10 2023-09-10 Office Hillary [facility] 1.2.840.114 [id number] Univers 11:00:00 12:11:30 Visit Ignacio HEALTH 350.1.13.10 it y of [place] 4.2.7.2.686 Telly as JIGAR?BLEA [phone] In eder [address] OFFICE [facility] 2023-09-03 2023-09-03 Out[facility] [id number] Univers 10:30:00 10:30:00 IGNACIO rosa [facility] 2023-08-22 2023-08-22 Telephone [facility] 1.2.490.800 [id number] Univers 00:00:00 00:00:00 Ignacio HEALTH 350.1.13.10 it y of [place] 4.2.7.2.686 Telly as JIGAR?BLEA [id number] In eder KELLEY [address] [place] [address] OFFICE [facility] 2023-08-17 2023-08-17 Patient Hillary [facility] 1.2.840.114 [id number] Univers 00:00:00 00:00:00 Secure Msg Ignacio HEALTH 350.1.13.10 ity of [place] 4.2.7.2.686 Telly as JIGAR?BLEA [id number] In eder [address] OFFICE [facility] 2023-08-11 2023-08-11 Outpatient GC_GCBZW_Ka PRIV PRIV [id number] [facility] 00:00:00 00:00:00 diyala_S [id number] Medic al 2023-08-09 2023-08-09 [facility] 1.2.591.560 [id number] Univers 10:59:46 23:59:00 Encounter Rania HEALTH 350.1.13.10 ity of [place] 4.2.7.2.686 Telly as JIGAR?BLEA [id number] In eder KELLEY [address] [facility] OFFICE [facility] 2023-08-09 2023-08-09 Outpatient R [facility] [id number] Univers 10:20:00 11:08:42 RANARLENE ity of [facility] 2023-08-09 2023-08-09 Urgent David Hughes [facility] 1.2.840.114 [id number] Univers 10:20:00 10:40:00 Care Unknown, [facility] HEALTH 350.1.13.10 ity of [place] 4.2.7.2.686 Telly as JIGAR?BLEA [phone] [facility] CELESTINE [address] MEDICAL OFFICE BUILDING 2023-08-02 2023-08-02 Patient [facility] 1.2.840.114 [id number] Univers 00:00:00 00:00:00 Secure Msg Ignacio HEALTH 350.1.13.10 ity of [place] 4.2.7.2.686 Telly as JIGAR?BLEA [id number] [address] OFFICE [facility] 2023-07-30 2023-07-30 Refill [facility] 1.2.840.114 [id number] Univers 00:00:00 00:00:00 Ignacio HEALTH 350.1.13.10 it y of [place] 4.2.7.2.686 Telly as JIGAR?BLEA [id number] [address] OFFICE [facility] 2023-07-20 2023-07-20 Patient [facility] 1.2.840.114 [id number] Univers 00:00:00 00:00:00 Secure Msg Ignacio HEALTH 350.1.13.10 ity of [place] 4.2.7.2.686 Telly as JIGAR?BLEA [id number] [address] OFFICE [facility] 2023-07-06 2023-07-06 Telephone [facility] 1.2.601.084 [id number] Univers 00:00:00 00:00:00 Ignacio HEALTH 350.1.13.10 it y of [place] 4.2.7.2.686 Telly as JIGAR?BLEA [id number] [address] OFFICE [facility] 2023-07-05 2023-07-05 Telephone [facility] 1.2.074.815 [id number] Univers 00:00:00 00:00:00 Ignacio HEALTH 350.1.13.10 it y of [place] 4.2.7.2.686 Telly as JIGAR?BLEA [id number] In dicmarquez KELLEY [address] MEDICAL OFFICE BUILDING 2023-06-27 2023-06-27 Refill [facility] 1.2.840.114 [id number] Univers 00:00:00 00:00:00 Ignacio HEALTH 350.1.13.10 it y of [place] 4.2.7.2.686 Telly as JIGAR?BLEA [id number] In dicmarquez KEL[place] [address] MEDICAL OFFICE BUILDING 2023-06-25 2023-06-25 Orders Doctor SEKOU 1.2.840.114 [id number] Univers 00:00:00 00:00:00 Only Unassigned, RUTH 350.1.13.10 [place] [facility] [place] [facility] 4.2.7.2.686 Telly as [phone] [address] 2023-06-11 2023-06-11 Patient [facility] 1.2.840.114 [id number] Univers 00:00:00 00:00:00 Secure Msg Ignacio HEALTH 350.1.13.10 ity of [place] 4.2.7.2.686 Telly as JIGAR?BLEA [id number] In eder KELLEY [address] MEDICAL OFFICE BUILDING 2023-06-10 2023-06-10 [facility] 1.2.840.114 [id number] Univers 00:00:00 00:00:00 Ignacio HEALTH 350.1.13.10 it y of [place] 4.2.7.2.686 Telly as JIGAR?BLEA [id number] In eder KELLEY [address] MEDICAL OFFICE BUILDING 2023-06-08 2023-06-08 Hospital [facility] 1.2.840.114 [id number] Univers 14:27:30 23:59:00 Encounter Ignacio HEALTH 350.1.13.10 ity of [place] 4.2.7.2.686 Telly as JIGAR?BLEA [id number] In eder KELLEY [address] MEDICAL OFFICE BUILDING 2023-06-08 2023-06-08 [employer], Ang - Db [facility] 1.2.840.1 14 [id number] Univers 15:00:00 15:00:00 Visit Ignacio Thornton 350.1.13.10 ity of [place] 4.2.7.2.686 Telly as JIGAR?BLEA [id number] In eder KELLEY [address] [facility] OFFICE [facility] 2023-06-08 2023-06-08 Office [facility] 1.2.840.114 [id number] Univers 14:30:00 14:30:00 Visit Ignacio JACQUES 350.1.13.10 it y [facility] 4.2.7.2.686 Telly as JIGAR?BLEA [id number] In carolde CELESTINE [address] [facility] OFFICE [facility] 2023-06-08 2023-06-08 Outpatient R [facility] [id number] Univers 14:30:00 14:25:32 IGNACIO rosa [facility] 2023-06-04 2023-06-04 Outpatient R [facility] [id number] Univers 11:00:00 11:00:00 IGNACIO rosa [facility] 2023-04-02 2023-04-02 Patient MarjanwilfredRE[facility] 1.2.840.114 [id number] Univers 00:00:00 00:00:00 Secure Msg Ignacio JACQUES 350.1.13.10 ity of [facility] 4.2.7.2.686 Telly as JIGAR?BLEA [id number] In eder [place] [address] [facility] OFFICE [facility] 2023-03-30 2023-03-30 Outpatient R [facility] [id number] Univers 11:30:04 23:59:00 IGNACIO rosa [facility] 2023-03-30 2023-03-30 Hospital [facility] 1.2.840.114 [id number] Univers 11:30:00 23:59:00 Encounter Ignacio HERNÁNDEZ 350.1.13.10 ity of [facility] 4.2.7.2.[place] [id number] [facility] [address] 2023-03-28 2023-03-28 Patient MarjanwilfredRE[facility] 1.2.840.114 [id number] Univers 00:00:00 00:00:00 Secure Msg Ignacio HEALTH 350.1.13.10 ity of [place] 4.2.7.2.686 Telly as JIGAR?BLEA [id number] [address] OFFICE [facility] 2023-03-22 2023-03-22 Patient [facility] 1.2.840.114 [id number] Univers 00:00:00 00:00:00 Secure Msg Ignacio HEALTH 350.1.13.10 ity of [place] 4.2.7.2.686 Telly as JIGAR?BLEA [id number] [address] OFFICE [facility] 2023-03-21 2023-03-21 Refill [facility] 1.2.840.114 [id number] Univers 00:00:00 00:00:00 [facility] 350.1.13.10 it y of [place] 4.2.7.2.686 Telly as JGIAR?BLEA [id number] [address] OFFICE [facility] 2023-03-19 2023-03-19 Outpatient R [facility] [id number] Univers 16:30:00 17:05:06 IGNACIO ity of [facility] 2023-03-19 2023-03-19 Office [facility] 1.2.840.114 [id number] Univers 16:30:00 17:05:06 Visit [facility] 350.1.13.10 it y of [place] 4.2.7.2.686 Telly as JIGAR?BLEA [id number] [address] OFFICE [facility] 2023-03-13 2023-03-13 Refill [facility] 1.2.840.114 [id number] Univers 00:00:00 00:00:00 Ignacio HEALTH 350.1.13.10 it y of [place] 4.2.7.2.686 Telly as JIGAR?BLEA [id number] [address] OFFICE [facility] 2023-03-13 2023-03-13 Refill [facility] 1.2.840.114 [id number] Univers 00:00:00 00:00:00 Ignacio HEALTH 350.1.13.10 it y of [place] 4.2.7.2.686 Telly as JIGAR?BLEA [id number] [address] MEDICAL OFFICE [facility] 2023-03-09 2023-03-09 Refill Hillary [facility] 1.2.840.114 [id number] Univers 00:00:00 00:00:00 Ignacio HEALTH 350.1.13.10 it y of [facility] 4.2.7.2.686 Telly as JIGAR?BLEA [id number] [address] OFFICE [facility] 2023-03-06 2023-03-06 Orders Doctor SEKOU 1.2.840.114 [id number] Univers 00:00:00 00:00:00 Only Unassigned, RUTH 350.1.13.10 [place] of [place] [facility] 4.2.7.2.686 Telly as [id number] [address] 2023-03-02 2023-03-02 Outpatient R HILLARY [facility] [id number] Univers 09:00:00 09:24:37 IGNACIO ity of [facility] 2023-03-02 2023-03-02 Office [facility] 1.2.840.114 [id number] Univers 09:00:00 09:24:37 Visit Ignacio [facility] 350.1.13.10 it y of [place] 4.2.7.2.686 Telly as JIGAR?BLEA [id number] [address] OFFICE [facility] 2023-02-20 2023-02-20 Patient Hillary [facility] 1.2.840.114 [id number] Univers 00:00:00 00:00:00 Secure Msg Ignacio HEALTH 350.1.13.10 ity of [place] 4.2.7.2.686 Telly as JIGAR?BLEA [id number] [address] OFFICE [facility] 2023-02-16 2023-02-16 [employer], Ang - Arslan [facility] 1.2.840.1 14 [id number] Univers 12:45:00 12:45:00 Visit Ignacio Thornton 350.1.13.10 ity of [place] 4.2.7.2.686 Telly as JIGAR?BLEA [phone] In eder KELLEY [address] MEDICAL OFFICE BUILDING 2023-02-16 2023-02-16 Outpatient R HLILARY [facility] [id number] Univers 11:30:00 12:07:55 IGNACIO itwes [facility] 2023-02-16 2023-02-16 Office [facility] 1.2.840.114 [id number] Univers 11:30:00 12:07:55 Visit Ignacio JACQUES 350.1.13.10 it y of [facility] 4.2.7.2.686 Telly as JIGAR?BLEA [id number] In eder [facility] [address] MEDICAL OFFICE BUILDING 2023-02-16 2023-02-16 Orders Doctor SEKOU 1.2.840.114 [id number] Univers 00:00:00 00:00:00 Only Unassigned, RUTH 350.1.13.10 ity of [place] [facility] 4.2.7.2.686 Telly as [id number] [facility] [address] 2023-02-12 2023-02-12 Transition FANY Fuchs 1.2.840.114 10 [id number] Univers 00:00:00 00:00:00 of Care Luiza SAMANOY 350.1.13.10 i [place]2.7.2.[place] [id number] [facility] [address] 2023-02-06 2023-02-09 Inpatient U [facility]SELMO [facility] [id number] Univers 15:12:00 13:49:00 ARIADNEGREG ANSELMO ity of [facility] 2023-02-06 2023-02-09 Hospital Ohaaron [facility] 1.2.326.304 [id number] Univers 15:12:00 13:49:00 Encounter Anselmo [facility] 350.1.13.10 ity of [facility] 4.2.7.2.[place] [id number] [facility] 115 [facility] 2023-02-09 2023-02-09 Outpatient R [facility] [id number] Univers 08:30:00 08:30:00 IGNACIO ity of [facility] 2023-01-03 2023-01-03 Refhalima HernandesRE[facility] 1.2.840.114 [id number] Univers 00:00:00 00:00:00 Jacobo HEALTH 350.1.13.10 it y of [place] 4.2.7.2.686 Telly as JIGAR?BLEA [id number] [address] OFFICE [facility] 2022-12-20 2022-12-20 Patient [facility] 1.2.840.114 [id number] Univers 00:00:00 00:00:00 Secure Msg Ignacio HEALTH 350.1.13.10 ity of [place] 4.2.7.2.686 Telly as JIGAR?BLEA [id number] [address] 2022-11-27 2022-11-27 Refill [facility] 1.2.840.114 [id number] Univers 00:00:00 00:00:00 Ignacio HEALTH 350.1.13.10 it y of [place] 4.2.7.2.686 Telly as JIGAR?BLEA [id number] [address] 2022-11-23 2022-11-23 Patient [facility] 1.2.840.114 [id number] Univers 00:00:00 00:00:00 Secure Msg Ignacio HEALTH 350.1.13.10 ity of [place] 4.2.7.2.686 Telly as JIGAR?BLEA [id number] [address] OFFICE [facility] 2022-11-16 2022-11-16 (TEL) [facility] [id number] Co mmon 00:00:00 00:00:00 [facility] 2022-11-13 2022-11-13 Patient [facility] 1.2.840.114 [id number] Univers 00:00:00 00:00:00 Secure Msg Ignacio HEALTH 350.1.13.10 ity of [place] 4.2.7.2.686 Telly as JIGAR?BLEA [id number] In eder [address] MEDICAL OFFICE BUILDING 2022-11-07 2022-11-07 Orders Doctor SEKOU 1.2.840.114 [id number] Univers 00:00:00 00:00:00 Only Unassigned, RUTH 350.1.13.10 [place] of [place] [facility] 4.2.7.2.686 Telly as [id number] [address] 2022-11-01 2022-11-01 Telephone Hillary [facility] 1.2.593.254 [id number] Univers 00:00:00 00:00:00 Ignacio HEALTH 350.1.13.10 it y [facility] 4.2.7.2.686 Telly as JIGAR?BLEA [id number] [facility] [address] MEDICAL OFFICE BUILDING 2022-10-26 2022-10-26 Patient Hillary [facility] 1.2.840.114 [id number] Univers 00:00:00 00:00:00 Secure Msg Ignacio HEALTH 350.1.13.10 ity of [facility] 4.2.7.2.686 Telly as JIGAR?BLEA [phone] [facility] [address] MEDICAL OFFICE [facility] 2022-10-17 2022-10-17 Patient Hillary [facility] 1.2.840.114 [id number] Univers 00:00:00 00:00:00 Secure Msg Ignacio HEALTH 350.1.13.10 ity of [place] 4.2.7.2.686 Telly as JIGAR?BLEA [id number] [facility] [address] MEDICAL OFFICE BUILDING 2022-10-12 2022-10-12 Patient Hillary [facility] 1.2.840.114 [id number] Univers 00:00:00 00:00:00 Secure Msg Ignacio HEALTH 350.1.13.10 ity of [facility] 4.2.7.2.686 Telly as JIGAR?BLEA [id number] [facility] [address] MEDICAL OFFICE BUILDING 2022-10-05 2022-10-05 Patient Hillary [facility] 1.2.840.114 [id number] Univers 00:00:00 00:00:00 Secure Msg Ignacio HEALTH 350.1.13.10 ity of [place] 4.2.7.2.686 Telly as JIGAR?BLEA [phone] In eder KELLEY [address] MEDICAL OFFICE [facility] 2022-10-05 2022-10-05 Telephone Hillary [facility] [id number] Univers 00:00:00 00:00:00 Ignacio HEALTH 350.1.13.10 it y of [place] 4.2.7.2.686 Telly as JIGAR?BLEA [phone] In eder KELLEY [address] [place] [address] MEDICAL OFFICE [facility] 2022-08-22 2022-08-22 Telephone Hillary [facility] [id number] Univers 00:00:00 00:00:00 Ignacio HEALTH 350.1.13.10 it y of [place] 4.2.7.2.686 Telly as JIGAR?BLEA [phone] In eder KELLEY [address] [place] [address] OFFICE [facility] 2022-08-22 2022-08-22 Patient Doctor [facility] 1.2.840.114 [id number] Univers 00:00:00 00:00:00 Secure Msg Unassigned, HEALTH 350.1.13.10 ity [place] 4.2.7.2.686 Telly as JIGAR?BLEA [id number] In eder KELLEY [address] [place] [address] OFFICE [facility] 2022-08-22 2022-08-22 Patient Doctor [facility] 1.2.840.114 [id number] Univers 00:00:00 00:00:00 Secure Msg Unassigned, HEALTH 350.1.13.10 ity of [place] 4.2.7.2.686 Telly as JIGAR?BLEA [phone] In eder KELLEY [address] [place] [address] OFFICE [facility] 2022-08-21 2022-08-21 [employer] [place] - Db [facility] 1.2.840.1 [id number] Univers 09:45:00 09:45:00 Visit Ignacio [place] 350.1.13.10 ity of [place] 4.2.7.2.686 Telly as JIGAR?BLEA [phone] In eder KELLEY [address] [facility] OFFICE [facility] 2022-08-21 2022-08-21 Outpatient R [facility] [id number] Univers 08:00:00 09:28:48 IGNACIO ity of [facility] 2022-08-21 2022-08-21 Office Hillary [facility] 1.2.840.114 [id number] Univers 08:00:00 09:28:48 Visit Ignacio HEALTH 350.1.13.10 it y of [place] 4.2.7.2.686 Telly as JIGAR?BLEA [phone] [address] MEDICAL OFFICE [facility] 2022-08-16 2022-08-16 Patient Hillary [facility] 1.2.840.114 [id number] Univers 00:00:00 00:00:00 Secure Msg Ignacio HEALTH 350.1.13.10 ity of [place] 4.2.7.2.686 Telly as JIGAR?BLEA [phone] [address] OFFICE [facility] 2022-08-04 2022-08-04 [facility] CARE SERVICES 1.2.840.114 [id number] Univers 00:00:00 00:00:00 Ignacio HEALTH 350.1.13.10 it y of [place] 4.2.7.2.686 Telly as JIGAR?BLEA [id number] [address] OFFICE [facility] 2022-08-01 2022-08-01 Refill [facility] 1.2.840.114 [id number] Univers 00:00:00 00:00:00 Ignacio HEALTH 350.1.13.10 it y of [place] 4.2.7.2.686 Telly as JIGAR?BLEA [id number] [address] OFFICE [facility] 2022-08-01 2022-08-01 Patient Hillary [facility] 1.2.840.114 [id number] Univers 00:00:00 00:00:00 Secure Msg Ignacio HEALTH 350.1.13.10 ity of [place] 4.2.7.2.686 Telly as JIGAR?BLEA [id number] [address] OFFICE [facility] 2022-08-01 2022-08-01 Orders Doctor SAPP 1.2.840.114 [id number] Univers 00:00:00 00:00:00 Only Unassigned, RUTH 350.1.13.10 ity of [place] [facility] 4.2.7.2.686 Telly as [phone] [address] 2022-07-31 2022-07-31 Imm/Inj Nurse, Calos Mcdaniels [facility] 1.2.840.114 [id number] Univers 10:20:00 10:40:00 Visit Ignacio Thornton 350.1.13.10 ity of [place] 4.2.7.2.686 Telly as JIGAR?BLEA [phone] [address] OFFICE [facility] 2022-07-31 2022-07-31 Outpatient R HILLARY [facility] [id number] Univers 10:20:00 10:20:00 IGNACIO shelley [facility] 2022-07-21 2022-07-21 [employer], Calos Mcdaniels [facility] 1.2.840.1 14 [id number] Univers 08:00:00 08:30:16 Visit Ignacio Thornton 350.1.13.10 ity of [place] 4.2.7.2.686 Telly as JIGAR?BLEA [id number] [facility] [address] [facility] OFFICE [facility] 2022-07-21 2022-07-21 Outpatient R HILLARY [facility] [id number] Univers 08:00:00 08:00:00 IGNACIO corazonwes [facility] 2022-07-03 2022-07-03 Imm/Inj Vaccine, Calos Mcdaniels [facility] 1. 2.840.114 [id number] Univers 11:00:00 11:26:10 Visit Ignacio Thornton 350.1.13.10 ity of [place] 4.2.7.2.686 Telly as JIGAR?BLEA [id number] [address] OFFICE [facility] 2022-07-03 2022-07-03 [facility] [id number] Univers 11:00:00 11:00:00 IGNACIO chandrawes [facility] 2022-06-21 2022-06-21 Telephone [facility] 1.2.101.896 [id number] Univers 00:00:00 00:00:00 Ignacio HEALTH 350.1.13.10 it y of [place] 4.2.7.2.686 Telly as JIGAR?BLEA [phone] In eder KEL[place] [address] MEDICAL OFFICE [facility] 2022-06-21 2022-06-21 Patient Doctor [facility] 1.2.840.114 [id number] Univers 00:00:00 00:00:00 Secure Msg Unassigned, HEALTH 350.1.13.10 ity of [place] 4.2.7.2.686 Telly as JIGAR?BLEA [phone] In eder KELLEY [address] [place] [address] MEDICAL OFFICE [facility] 2022-06-20 2022-06-20 Outpatient R HILLARY [facility] [id number] [facility] 10:00:00 10:27:56 IGNACIO shelley [facility] 2022-06-20 2022-06-20 Office [facility] 1.2.840.114 [id number] Univers 10:00:00 10:27:56 Visit Ignacio [facility] 350.1.13.10 it y [facility] 4.2.7.2.686 Telly as JIGAR?BLEA [phone] In eder KELLEY [address] [place] [address] OFFICE [facility] 2022-06-20 2022-06-20 [employer], Ang - [facility] 1.2.840.1 14 [id number] Univers 09:30:00 10:11:33 Visit Ignacio Thortnon 350.1.13.10 ity of [facility] 4.2.7.2.686 Telly as JIGAR?BLEA [phone] In eder KELLEY [address] MEDICAL OFFICE [facility] 2022-06-20 2022-06-20 Outpatient R HILLARY [facility] [id number] Univers 09:30:00 10:11:33 IGNACIO rosa [facility] 2022-06-20 2022-06-20 Outpatient R HILLARY [facility] [id number] Univers 10:00:00 10:00:00 IGNACIO rosa [facility] 2022-06-20 2022-06-20 Outpatient R [facility] [id number] Univers 10:00:00 10:00:00 IGNACIO rosa [facility] 2022-06-20 2022-06-20 [employer], Ang - Db [facility] 1.2.840.1 14 [id number] Univers 09:30:00 09:45:00 Visit Ignacio Thornton 350.1.13.10 ity [facility] 4.2.7.2.686 Telly as JIGAR?BLEA [phone] In eder KELLEY [address] [facility] OFFICE [facility] 2022-05-09 2022-05-09 [employer], Ang [facility] 1.2.840.1 14 [id number] Univers 13:00:00 13:15:00 Visit Ignacio Thornton 350.1.13.10 ity of [place] 4.2.7.2.686 Telly as JIGAR?BLEA [phone] In eder [place] [address] [facility] 2022-05-09 2022-05-09 Outpatient R [facility] [id number] Univers 13:00:00 13:00:00 IGNACIO rosa [facility] 2022-04-21 2022-04-21 Patient [facility] 1.2.840.114 [id number] Univers 00:00:00 00:00:00 Secure Msg Ignacio JACQUES 350.1.13.10 ity of [place] 4.2.7.2.686 Telly as JIGAR?BLEA [id number] In eder KELLEY 0[address] [facility] 2022-04-19 2022-04-19 Outpatient R [facility] [id number] Univers 08:02:21 23:59:00 IGNACIO ity of [facility] 2022-04-19 2022-04-19 [facility] 1.2.840.114 [id number] Univers 08:02:21 23:59:00 Encounter Ignacio HERNÁNDEZ 350.1.13.10 ity of [place] 4.2.7.2.686 [place] [id number] [address] 2022-04-12 2022-04-12 Telephone Marjanwilfred [facility] 1.2.081.020 [id number] Univers 00:00:00 00:00:00 Ignacio HEALTH 350.1.13.10 it y of [place] 4.2.7.2.686 Telly as JIGAR?BLEA [phone] [facility] [address] MEDICAL OFFICE [facility] 2022-04-06 2022-04-06 Telephone Hillary [facility] 1.2.037.717 [id number] Univers 00:00:00 00:00:00 Ignacio HEALTH 350.1.13.10 it y of [place] 4.2.7.2.686 Telly as JIGAR?BLEA [phone] [address] OFFICE [facility] 2022-03-28 2022-03-28 Patient Hillary [facility] 1.2.840.114 [id number] Univers 00:00:00 00:00:00 Secure Msg Ignacio HEALTH 350.1.13.10 ity of [place] 4.2.7.2.686 Telly as JIGAR?BLEA [phone] [address] OFFICE [facility] 2022-03-28 2022-03-28 Orders Doctor SAPP 1.2.840.114 [id number] Univers 00:00:00 00:00:00 Only Unassigned, RUTH 350.1.13.10 [place] of [place] [facility] 4.2.7.2.686 Telly as [phone] [address] 2022-03-24 2022-03-24 Orders Doctor SAPP 1.2.840.114 [id number] Univers 00:00:00 00:00:00 Only Unassigned, RUTH 350.1.13.10 [place] of [place] [facility]PITAL 4.2.7.2.686 Telly as [phone] [address] 2022-03-20 2022-03-20 Orders Doctor SAPP 1.2.840.114 [id number] Univers 00:00:00 00:00:00 Only Unassigned, RUTH 350.1.13.10 [place] of [place] HOSPITAL 4.2.7.2.686 Telly as [id number] [address] 2022-03-17 2022-03-17 Office [facility] 1.2.840.114 [id number] Univers 11:00:00 11:34:14 Visit Ignacio HEALTH 350.1.13.10 it y of [place] 4.2.7.2.686 Telly as JIGAR?BLEA [phone] In eder KEL[place] [address] [facility] OFFICE [facility] 2022-03-17 2022-03-17 Outpatient R HILLARY [facility] [id number] Univers 11:00:00 11:34:14 IGNACIO rosa [facility] 2022-03-17 2022-03-17 Outpatient R HILLARY [facility] [id number] Univers 11:00:00 11:00:00 IGNACIO rosa [facility] 2022-03-17 2022-03-17 [employer], Ang - Db [facility] 1.2.840.1 14 [id number] Univers 09:45:00 10:00:00 Visit Ignacio Thornton 350.1.13.10 ity of [place] 4.2.7.2.686 Telly as JIGAR?BLEA [phone] In eder KELLEY [address] [place] [address] OFFICE [facility] 2022-03-17 2022-03-17 Patient Hillary [facility] 1.2.840.114 [id number] Univers 00:00:00 00:00:00 Secure Msg Ignacio HEALTH 350.1.13.10 ity of [place] 4.2.7.2.686 Telly as JIGAR?BLEA [id number] In eder [place] [address] [facility] 2022-03-14 2022-03-14 [employer], Ang - Db [facility] 1.2.840.1 14 [id number] Univers 11:15:00 11:30:00 Visit Ignacio Thornton 350.1.13.10 ity of [place] 4.2.7.2.686 Telly as JIGAR?BLEA [phone] In eder [address] 2022-03-14 2022-03-14 Outpatient R HILLARY [facility] [id number] Univers 11:15:00 11:15:00 IGNACIO rosa [facility] 2022-03-14 2022-03-14 Outpatient R HILLARY [facility] [id number] Univers 11:15:00 11:15:00 IGNACIO ity of [facility] 2022-03-14 2022-03-14 Telephone Hillary [facility] 1.2.433.518 [id number] Univers 00:00:00 00:00:00 Ignacio HEALTH 350.1.13.10 it y of [place] 4.2.7.2.686 Tlely as JIGAR?BLEA [id number] [address] MEDICAL OFFICE [facility] 2022-03-07 2022-03-07 Telephone Hillary [facility] 1.2.115.067 [id number] Univers 00:00:00 00:00:00 Ignacio HEALTH 350.1.13.10 it y of [place] 4.2.7.2.686 Telly as JIGAR?BLEA [phone] [address] OFFICE [facility] 2022-02-24 2022-02-24 Telephone Hillary [facility] 1.2.942.224 [id number] Univers 00:00:00 00:00:00 Ignacio HEALTH 350.1.13.10 it y of [place] 4.2.7.2.686 Telly as JIGAR?BLEA [phone] [address] OFFICE [facility] 2022-02-23 2022-02-23 Orders Doctor SEKOU 1.2.840.114 [id number] Univers 00:00:00 00:00:00 Only Unassigned, RUTH 350.1.13.10 [place] of [place] [facility] 4.2.7.2.686 Telly as [phone] [address] 2022-02-15 2022-02-15 Patient Doctor [facility] 1.2.840.114 [id number] Univers 00:00:00 00:00:00 Secure Msg Unassigned, HEALTH 350.1.13.10 it[place] of [place] 4.2.7.2.686 Telly as JIGAR?BLEA [phone] [address] OFFICE [facility] 2022-02-15 2022-02-15 Telephone Hillary [facility] 1.2.184.226 [id number] Univers 00:00:00 00:00:00 Ignacio HEALTH 350.1.13.10 it y of [place] 4.2.7.2.686 Telly as JIGAR?BLEA [phone] [facility] [address] [facility] OFFICE [facility] 2022-02-14 2022-02-14 [employer], Ang - Db [facility] 1.2.840.1 14 [id number] Univers 09:30:00 10:12:56 Visit Ignacio Thornton 350.1.13.10 ity of [place] 4.2.7.2.686 Telly as JIGAR?BLEA [id number] [facility] [address] [facility] OFFICE [facility] 2022-02-14 2022-02-14 [employer], Ang - Db [facility] 1.2.840.1 14 [id number] Univers 09:30:00 09:45:00 Visit Ignacio Thornton 350.1.13.10 ity of [place] 4.2.7.2.686 Telly as JIGAR?BLEA [id number] [address] 2022-02-14 2022-02-14 Outpatient [facility] [id number] Univers 09:00:00 09:40:42 IGNACIO rosa [facility] 2022-02-14 2022-02-14 [facility] 1.2.840.114 [id number] Univers 09:00:00 09:40:42 Visit Ignacio JACQUES 350.1.13.10 it y of [place] 4.2.7.2.686 Telly as JIGAR?BLEA [id number] [address] OFFICE [facility] 2022-02-14 2022-02-14 Outpatient R [facility] [id number] Univers 09:00:00 09:40:42 IGNACIO rosa [facility] 2022-02-14 2022-02-14 Outpatient R [facility] [id number] Univers 09:30:00 09:30:00 IGNACIO rosa [facility] 2022-02-14 2022-02-14 Orders Doctor SAPP 1.2.840.114 [id number] Univers 00:00:00 00:00:00 Only Unassigned, RUTH 350.1.13.10 [place] HOSPITAL 4.2.7.2.686 Telly as [phone] [facility] [address] 2022-02-14 2022-02-14 Telephone [facility] 1.2.494.974 [id number] Univers 00:00:00 00:00:00 [facility] 350.1.13.10 [facility] 4.2.7.2.686 Telly as JIGAR?BLEA [phone] [address] MEDICAL OFFICE BUILDING 2022-02-14 2022-02-14 Patient Doctor SEKOU 1.2.840.114 [id number] Univers 00:00:00 00:00:00 Secure Msg Unassigned, RUTH 350.1.13.10 [place] of [place] [facility] 4.2.7.2.686 Telly as [phone] [facility] [address] 2022-02-14 2022-02-14 Telephone [facility] 1.2.743.698 [id number] Univers 00:00:00 00:00:00 [facility] 350.1.13.10 it y of [facility] 4.2.7.2.686 Telly as JIGAR?BLEA [id number] [address] MEDICAL OFFICE BUILDING 2022-02-13 2022-02-13 Pre Visit Lori HALINARicardo 1.2.518.681 [id number] Univers 00:00:00 00:00:00 Outreach Madeleine THOMPSON 350.1.13.10 [place] of [place].2.[place] [phone] [facility] [address] 2022-01-05 2022-01-05 (TEL) STLMLC STLMLC [id number] Co mmon 00:00:00 00:00:00 [facility] 2021-12-01 2021-12-01 OFFICE STLMLC STLMLC [id number] Co mmon 00:00:00 00:00:00 VISIT Spirit ESTAB PT - CHI LEVEL 4 [facility] 2021-11-23 2021-11-23 (TEL) STLMLC STLMLC [id number] Co mmon 00:00:00 00:00:00 [facility] 2021-11-18 2021-11-18 (TEL) STLMLC STLMLC [id number] Co mmon 00:00:00 00:00:00 [facility] 2021-11-16 2021-11-16 [facility], 1.2.840.1 [id number] [id number] Methodi 09:00:51 23:59:00 Encounter [place] AntonetteBeverly [address]286.1.[address] 3.430.2.7 Hospit a .3.864888 l .8 2021-11-16 2021-11-16 [facility] 1.2.840.1 [id number] Methodi 09:00:30 23:59:00 Encounter [place] AntonetteBeverly 52735.1.[address] 3.430.2.7 Hospit a .3.952038 l .8 2021-11-16 2021-11-16 Travel 1.2.840.1 1.2.654.201 2313 [id number] Methodi 00:00:00 00:00:[address] 3.430.2.7 0.2.7.3.698 Ho spita .3.182883 084.8 l .8 2021-10-17 2021-10-17 (TEL) STLMLC STLMLC [id number] Co mmon 00:00:00 00:00:00 [facility] 2021-10-05 2021-10-05 Travel 1.2.840.1 1.2.324.642 0147 [id number] Methodi 00:00:00 00:00:[address] 3.430.2.7 0.2.7.3.698 Ho spita .3.702762 084.8 l .8 2021-10-04 2021-10-[address]1 [id number] 2 [id number] Methodi 00:00:00 00:00:00 Orders [place] AntonetteBeverly 55167.1.[address] 3.430.2.7 Hospit a .3.147827 l .8 2021-08-30 2021-08-30 (TEL) STLMLC STLMLC [id number] Co mmon 00:00:00 00:00:00 [facility] 2021-08-29 2021-08-29 SUB ANNUAL STLMLC STLMLC [id number] Common 00:00:00 00:00:00 MCR Spirit WELLNESS - CHI VISIT [facility] 2021-08-29 2021-08-29 OFFICE STLMLC STLMLC [id number] Co mmon 00:00:00 00:00:00 VISIT EST Spir it PT LEVEL 3 [facility] 2021-08-12 2021-08-12 Orders Doctor SEKOU 1.2.840.114 [id number] Univers 00:00:00 00:00:00 Only Unassigned, RUTH 350.1.13.10 [place] of [place] [facility] 4.2.7.2.686 Telly as [phone] [place] [address] [address] 2021-08-12 2021-08-12 (COVID STLMLC STLMLC [id number] Co mmon 00:00:00 00:00:00 Inj) COVID Spi rit Injection [facility] 2021-08-10 2021-08-10 (TEL) STLMLC STLMLC [id number] Co mmon 00:00:00 00:00:00 [facility] 2021-07-15 2021-07-15 ([place]) Nurse STLC STLC [id number] Common 00:00:00 00:00:00 Visit [facility] 2021-06-02 2021-06-02 OFFICE STLMLC STLMLC [id number] Co mmon 00:00:00 00:00:00 VISIT [facility] ESTAB PT - CHI LEVEL 4 [facility] 2021-04-06 2021-04-06 (TEL) STLMLC STLMLC [id number] Co mmon 00:00:00 00:00:00 [facility] 2021-03-09 2021-03-09 (TEL) STLMLC STLMLC [id number] Co mmon 00:00:00 00:00:00 [facility] 2021-02-10 2021-02-10 OFFICE STLMLC STLMLC [id number] Co mmon 00:00:00 00:00:00 VISIT [facility] LEVEL 4 [facility] 2020-12-29 2020-12-29 Outpatient STLMLC STLMLC [id number] Common 00:00:00 00:00:00 [facility] 2020-12-28 2020-12-28 Outpatient STLMLC STLMLC [id number] Common 00:00:00 00:00:00 [facility] 2020-12-08 2020-12-08 Outpatient STLMLC STLMLC [id number] Common 00:00:00 00:00:00 [facility] 2020-11-20 2020-11-20 Outpatient Frances SAUCEDO [facility] [id number] Univers 09:50:00 09:50:00 [facility] 2020-11-15 2020-11-15 Outpatient STLMLC STLMLC [id number] Common 00:00:00 00:00:00 [facility] 2020-10-23 2020-10-23 Outpatient [facility] [id number] Univers 09:40:00 09:40:00 [facility] 2020-10-10 2020-10-10 Letter SEKOU Ruiz 1.2.840.114 [id number] 00:00:00 00:00:00 (Out) Sonia Rubin RUTH 350.1.13.10 HOSPITAL [facility].7.2.686 [id number] 019 2020-10-10 2020-10-10 Telephone SEKOU Adkins 1.2.399.293 [id number] 00:00:00 00:00:00 Patient RUTH 350.1.13.10 Does Not HOSPITAL [facility].7.2.686 Have A [id number] 019 2020-10-10 2020-10-10 Letter SEKOU Ruiz 1.2.840.114 [id number] Univers 00:00:00 00:00:00 (Out) Sonia Caryn MIRANDA 350.1.13.10 it y of HOSPITAL 4.2.7.2.686 Telly as [id number] [address] 2020-10-10 2020-10-10 Telephone Pcp, SEKOU 1.2.280.922 [id number] Univers 00:00:00 00:00:00 Patient RUTH 350.1.13.10 it y of [place] HOSPITAL [place].2.[place] Have A [id number] [address] 2020-10-09 2020-10-09 Outpatient R MARCELO, [facility] [id number] Univers 09:00:00 09:00:00 BRANDT ity [facility] 2020-10-09 2020-10-09 Laboratory Lab, [facility] 1.2.840.114 [id number] 08:37:26 08:57:26 Only Fam Pob I Health 350.1.13.10 [place] 4.2.7.2.686 Professio [phone] [place] [address] Office [facility] 2020-10-09 2020-10-09 Laboratory Lab, [facility] Fam Pob I [facility] 1.2. 840.114 [id number] Univers 08:37:26 08:57:26 Only Brandt [facility] 350.1.13.10 ity of [place] 4.2.7.2.686 Telly as Professio [phone] In dical [address] Office Building [facility] 2020-09-01 2020-09-01 Outpatient STLMLC STLMLC [id number] Common 00:00:00 00:00:00 [facility] 2020-08-25 2020-08-25 Outpatient STLMLC STLMLC [id number] Common 00:00:00 00:00:00 [facility] 2020-08-21 2020-08-21 Outpatient STLMLC STLMLC [id number] Common 00:00:00 00:00:00 [facility] 2020-05-25 2020-05-25 Out[facility] [id number] Common 08:00:00 08:00:00 [facility] it Drive [facility] 2020-05-20 2020-05-20 [facility] [id number] Common 10:08:00 10:08:[address] Sp[address] [facility] 2020-03-30 2020-03-30 Outpatient [facility] [id number] Common 14:39:00 14:39:[address] Sp[address] [facility] 2020-02-10 2020-02-10 Outpatient [facility] [id number] Common 11:21:00 11:21:[address] Sp[address] [facility] 2020-01-30 2020-01-30 Outpatient [facility] [id number] Common 08:00:00 08:00:[address] Sp[address] [facility] 2020-01-22 2020-01-22 Outpatient [facility] [id number] Common 13:30:00 13:30:00 t [facility] 2019-12-23 2019-12-23 Outpatient [facility] [id number] Common 14:13:00 14:13:[address] Sp[address] [facility] 2019-12-19 2019-12-19 Outpatient [facility] [id number] Common 14:40:00 14:40:[address] Sp[address] [facility] 2019-11-14 2019-11-14 Outpatient [facility] [id number] Common 11:20:00 11:20:[address] Sp[address] [facility] 2019-10-30 2019-10-30 Outpatient [facility] [id number] Common 08:00:00 08:00:[address] Sp[address] [facility] 2019-10-24 2019-10-24 Outpatient [facility] [id number] Common 16:35:00 16:35:[address] Sp[address] [facility] 2019-10-16 2019-10-16 Outpatient [facility] [id number] Common 08:51:00 08:51:[address] Sp[address] [facility] 2019-07-10 2019-07-10 Outpatient [facility] [id number] Common 08:40:00 08:40:[address] Sp[address] [facility] 2019-04-29 2019-04-29 Outpatient [facility] [id number] Common 08:40:00 08:40:[address] Sp[address] [facility] 2019-04-02 2019-04-02 Outpatient [facility] [id number] Common 11:07:00 11:07:00 [facility] 2018-11-26 2018-11-26 Outpatient [facility] [id number] Common 09:30:00 09:30:[address] Sp[address] [facility] 2018-06-19 2018-06-19 Outpatient [facility] [id number] Common 08:15:00 08:15:[address] Sp[address] [facility] 2018-04-16 2018-04-16 [facility] 13 [id number] Common 08:15:00 08:15:[address] [facility] 2018-01-10 2018-01-10 [facility] 12 [id number] Common 08:15:00 08:15:[address] [facility] Results Test Description Test Time Test Comments Results Result Comments Source POCT GLUCOSE (AUTOMATED) 2023-02-09 13:17:14 Test Item Value Reference Range Interpretation Comme nts POCT GLU (test code = 5183033969) 79 mg/dL 70-110 Lab Interpretation (test code = 87112-7) Normal [facility] WITH [id number] 13:02:57 Test Item Value Reference Range Interpretation Comments WBC (test code = 4.79 See_Comment [Automated 6690-2) message] The sy stem which generated this result transmitted reference range : 4.30 - 11.10 10*3/?L. The reference range was not used to interpret this result as normal/abnormal . RBC (test code = 4.19 See_Comment [Automated 789-8) message] The sy stem which generated this result transmitted reference range : 3.93 - 5.25 10*6/?L. The reference range was not used to interpret this result as normal/abnormal . HGB (test code = 11.1 g/dL 11.6-15.0 L 718-7) HCT (test code = 36.4 % 35.7-45.2 4544-3) MCV (test code = 86.9 fL 80.6-95.5 787-2) MCH (test code = 26.5 pg 25.9-32.8 785-6) MCHC (test code = 30.5 g/dL 31.6-35.1 L 786-4) RDW-SD (test code = 45.0 fL 39.0-49.9 88201-1) RDW-CV (test code = 14.2 % 12.0-15.5 788-0) PLT (test code = 171 See_Comment [Automated 777-3) message] The sy stem which generated this result transmitted reference range : 166 - 358 10*3/ ?L. The reference r augustine was not used to interpret this result as normal/abnormal . MPV (test code = 10.0 fL 9.5-12.9 77338-8) NRBC/100 WBC (test 0.0 See_Comment [Automat ed code = [id number]) message] The system which generated this result transmitted reference range : 0.0 - 10.0 /100 WBCs. The refer ence range was not u sed to interpret th is result as normal/abnormal . NRBC x10^3 (test code See_Comment [Auto mated = [id number]) message] The s ystem which generated this result transmitted reference range : 10*3/?L. The reference range was not used to interpret this result as normal/abnormal . GRAN MAT (NEUT) % 76.2 % (test code = 770-8) IMM GRAN % (test code 0.20 % = [id number]) LYMPH % (test code = 13.2 % 736-9) MONO % (test code = 9.6 % 5905-5) EOS % (test code = 0.4 % 713-8) BASO % (test code = 0.4 % 706-2) GRAN MAT x10^3(ANC) 3.65 10*3/uL 1.88-7.09 (test code = [id number]) IMM GRAN x10^3 (test 0.00-0.06 code = 6647919817) LYMPH x10^3 (test code 0.63 10*3/uL 1.32-3.29 L = 731-0) MONO x10^3 (test code 0.46 10*3/uL 0.33-0.92 = 742-7) EOS x10^3 (test code = 0.03-0.39 L 711-2) BASO x10^3 (test code 0.01-0.07 = 704-7) Lab Interpretation Abnormal (test code = 08879-5) [facility]14 Test Item Value Reference Range Interpretation Comments PHOSPHORUS (test code = 6205567644) 2.3 mg/dL 2.5-5.0 L Lab Interpretation (test code = Abnormal 38939-6) [facility]:05:14 Test Item Value Reference Range Interpretation Comments MAGNESIUM (test code = 0834955178) 1.5 mg/dL 1.7-2.4 L Lab Interpretation (test code = Abnormal 74030-9) [facility] (NA, K, CL, CO2, GLUCOSE, BUN, CREATININE, CA)2023-02-09 12:05:14 Test Item Value Reference Range Interpretation Comments NA (test code = 136 mmol/L 135-145 6124460173) K (test code = 3.2 mmol/L 3.5-5.0 L 4894017588) CL (test code = 101 mmol/L 98-108 3499351687) CO2 TOTAL (test code = 32 mmol/L 23-31 H 7246869653) AGAP (test code = 3 2-16 4828884529) BUN (test code = 4 mg/dL 7-23 L 7015560753) GLUCOSE (test code = 81 mg/dL 70-110 2524271467) CREATININE (test code = 0.15 mg/dL 0.50-1.04 L 3762043345) CALCIUM (test code = 7.8 mg/dL 8.6-10.6 L 0748643038) eGFR (test code = 489.4 mL/min/1.73m2 7130862181) ANABEL (test code = ANABEL) Association of Glomerular Filtration Rate (GFR) and Staging of Kidney Disease* + --+ --+ ------+| GFR (mL/min/1.73 m2) ?| With Kidney Damage ?| ?Without Kidney Damage+ --------+ --------+ +| ?>90 ?| ?Stage one ?| ? Normal ?+ ---+ ---+ -------+| ?60-89 ?| ?Stage two ?| ? Decreased GFR ? + --+ --+ ------+| ?30-59 ?| ?Stage three ?| ? Stage three ? + --+ --+ ------+| ?15-29 ?| ?Stage four ? | ? Stage four ?+ ---+ ---+ -------+| ?<15 (or dialysis) ? ?| ?Stage five ? | ? Stage five ?+ ---+ ---+ -------+ *Each stage assumes the associated GFR level has been in effect for at least three months. ?Stages 1 to 5, with or without kidney disease, indicate chronic kidney disease. Notes: Determination of stages one and two (with eGFR >59mL/min/1.73 m2) requires estimation of kidney damage for at least three months as defined by structural or functional abnormalities of the kidney, manifested by either:Pathological abnormalities or Markers of kidney damage (including abnormalities in the composition of the blood or urine or abnormalities in imaging tests). Lab Interpretation Abnormal (test code = 44168-0) [facility] GLUCOSE (AUTOMATED)2023-02-09 01:59:33 Test Item Value Reference Range Interpretation Comments POCT GLU (test code = 7862498445) 75 mg/dL 70-110 Lab Interpretation (test code = Normal 01562-1) [facility] GLUCOSE (AUTOMATED)2023-02-08 22:24:56 Test Item Value Reference Range Interpretation Comments POCT GLU (test code = 0931134701) 89 mg/dL 70-110 Lab Interpretation (test code = Normal 38475-3) [facility] GLUCOSE (AUTOMATED)2023-02-08 16:39:13 Test Item Value Reference Range Interpretation Comments POCT GLU (test code = 9608850854) 73 mg/dL 70-110 Lab Interpretation (test code = Normal 88635-5) [facility] GLUCOSE (AUTOMATED)2023-02-08 12:22:31 Test Item Value Reference Range Interpretation Comments POCT GLU (test code = 9961383192) 78 mg/dL 70-110 Lab Interpretation (test code = Normal 07780-8) [facility] GLUCOSE (AUTOMATED)2023-02-08 02:33:31 Test Item Value Reference Range Interpretation Comments POCT GLU (test code = 9858800945) 98 mg/dL 70-110 Lab Interpretation (test code = Normal 07056-7) [facility] GLUCOSE (AUTOMATED)2023-02-07 23:06:46 Test Item Value Reference Range Interpretation Comments POCT GLU (test code = 2310194174) 87 mg/dL 70-110 Lab Interpretation (test code = Normal 80912-5) [facility] GLUCOSE (AUTOMATED)2023-02-07 16:36:36 Test Item Value Reference Range Interpretation Comments POCT GLU (test code = 4722568806) 84 mg/dL 70-110 Lab Interpretation (test code = Normal 93338-2) [facility] GLUCOSE (AUTOMATED)2023-02-07 13:13:46 Test Item Value Reference Range Interpretation Comments POCT GLU (test code = 6352457019) 78 mg/dL 70-110 Lab Interpretation (test code = Normal 59263-1) [facility] GLUCOSE (AUTOMATED)2023-02-07 01:53:39 Test Item Value Reference Range Interpretation Comments POCT GLU (test code = 0237608486) 86 mg/dL 70-110 Lab Interpretation (test code = Normal 91502-9) [facility] WITH [id number] 20:06:54 Test Item Value Reference Range Interpretation Comments WBC (test code = See_Comment [Automated 6690-2) message] The sy stem which generated this result transmitted reference range : 4.30 - 11.10 10*3/?L. The reference range was not used to interpret this result as normal/abnormal . RBC (test code = See_Comment [Automated 789-8) message] The sy stem which generated this result transmitted reference range : 3.93 - 5.25 10*6/?L. The reference range was not used to interpret this result as normal/abnormal . HGB (test code = 13.3 g/dL 11.6-15.0 718-7) HCT (test code = 42.0 % 35.7-45.2 4544-3) MCV (test code = 85.2 fL 80.6-95.5 787-2) MCH (test code = 27.0 pg 25.9-32.8 785-6) MCHC (test code = 31.7 g/dL 31.6-35.1 786-4) RDW-SD (test code = 42.5 fL 39.0-49.9 72917-2) RDW-CV (test code = 13.6 % 12.0-15.5 788-0) PLT (test code = See_Comment [Automated 777-3) message] The sy stem which generated this result transmitted reference range : 166 - 358 10*3/ ?L. The reference r augustine was not used to interpret this result as normal/abnormal . MPV (test code = 10.4 fL 9.5-12.9 38317-2) NRBC/100 WBC (test See_Comment [Automat ed code = 9907483904) message] The system which generated this result transmitted reference range : 0.0 - 10.0 /100 WBCs. The refer ence range was not u sed to interpret th is result as normal/abnormal . NRBC x10^3 (test code See_Comment [Auto mated = 6525473429) message] The s ystem which generated this result transmitted reference range : 10*3/?L. The reference range was not used to interpret this result as normal/abnormal . GRAN MAT (NEUT) % 82.4 % (test code = 770-8) IMM GRAN % (test code 0.20 % = 2066097459) LYMPH % (test code = 10.9 % 736-9) MONO % (test code = 5.3 % 5905-5) EOS % (test code = 0.7 % 713-8) BASO % (test code = 0.5 % 706-2) GRAN MAT x10^3(ANC) 4.84 10*3/uL 1.88-7.09 (test code = 5566698356) IMM GRAN x10^3 (test 0.00-0.06 code = 9024297265) LYMPH x10^3 (test code 0.64 10*3/uL 1.32-3.29 L = 731-0) MONO x10^3 (test code 0.31 10*3/uL 0.33-0.92 L = 742-7) EOS x10^3 (test code = 0.04 10*3/uL 0.03-0.39 711-2) BASO x10^3 (test code 0.03 10*3/uL 0.01-0.07 = 704-7) Lab Interpretation Abnormal (test code = 34534-3) [facility] URINALYSIS W SPECIFIC [id number] 17:41:00 Test Item Value Reference Range Interpretation [...] 3267) Lab Interpretation (test Abnormal code = 34153-7) [facility] URINALYSIS W SPECIFIC [id number] 17:41:00 Test Item Value Reference Range Interpretation [...] 3267) Lab Interpretation (test Abnormal code = 17101-2) [facility] [id number] 17:41:00 Test Item Value Reference Range Interpretation [...] 3267) Lab Interpretation (test Abnormal code = 40428-8) [facility] [id number] 20:50:55 Test Item Value Reference Range Interpretation Comments TSH (test code = See_Comment Biotin has been 4491045507) reported to cau se a negative bias, interpret resul ts relative to pat ient's use of biotin. [Automated mess age] The system [employer] generated this result transmitted ref erence range: 0.45 - 4 .70 mIU/L. The refe rence range was not u sed to interpret this result as normal/abnor mal. Lab Interpretation (test Normal code = 93306-8) [facility] Notes Date/Time Note Provider Source 2023-06-27 12:04:34 1270-24-49D35:04:34Formatting of this note [facility] is different from the original.Images from the original note were not included.Name from pharmacy: OMEPRAZOLE DR 40 MG CAPSULE Will file in chart as: OMEPRAZOLE 40 mg capsule Sig: TAKE 1 CAPSULE BY MOUTH EVERY MORNING Disp: 90 capsule Refills: 1 Start: 06/27/2023 Class: eRX Non-formulary For: Gastroesophageal reflux disease without esophagitis Last ordered: 10 months ago (08/21/2022) by SUSHILA Johnston Last refill: 02/11/2023 Rx #: [id number] Gastroenterology: Antiulcer - Proton Pump Inhibitors Passed 06/27/2023 10:45 AM Protocol Details Valid encounter within last 12 months Name from pharmacy: ROSUVASTATIN CALCIUM 40 MG TAB Will file in chart as: ROSUVASTATIN 40 mg tablet Sig: TAKE 1 TABLET BY MOUTH EVERY DAY Disp: 90 tablet Refills: 0 (Pharmacy requested: Not specified) Start: 06/27/2023 Class: eRX For: Hypertension, unspecified type Last ordered: 5 months ago (01/03/2023) by SUSHILA Johnston Last refill: 01/03/2023 Rx #: [id number] Cardiovascular: Antilipid - HMG-CoA Reductase Inhibitors Passed 06/27/2023 10:45 AM Protocol Details Valid encounter within last 12 months Total Cholesterol within 360 days LDL within 360 days HDL within 360 days Triglycerides within 360 days AST in normal range and within 360 days ALT in normal range and within 360 days To be filled at: [facility]/pharmacy #[id number] - [place], [place] - [address] [facility] [address] Recent VisitsDate Type Provider Dept 06/08/23 Office Visit Ignacio Thornton FNP [facility] 03/19/23 Office Visit Ignacio Thornton FNP [facility] 03/02/23 Office Visit Ignacio Thornton FNP [facility] 02/16/23 Office Visit Cotta, Ignacio, [employer] [facility] 08/21/22 Office Visit Ignacio Thornton FNP [facility] 06/20/22 Office Visit Ignacio Thornton FNP [facility] 03/17/22 Office Visit Ignacio Thornton FNP [facility] 02/14/22 Office Visit Ignacio Thornton FNP [facility] Showing recent visits within past 540 days with a meds authorizing provider and meeting all other requirementsFuture AppointmentsDate Type Provider Dept 09/03/23 Appointment Ignacio Thornton FNP [facility] Showing future appointments within next 150 days with a meds authorizing provider and meeting all other requirements 20188-4Ztdcwwvua encounter RpqjVM1318-34-86F90:11:54Telephone encounter NoteTXT1.2.840.184311.1.13.104.2.7.2.82291 9|[id number] for patient lwwd07869-3XbxaQPUPFKIEDL[address] RyvdFiehcwsouStggnzzmmAEWS8061290649DBFFJF ZJYVVTSZFRZDTGUC8293-33-89D51:11:541.2.840 .039860.1.72.3.15|1.2.840.070845.1.13.104. 2.7.2.727879_[id number] 2023-06-11 10:11:59 4525-60-92Y31:11:59Formatting of this note [facility] is different from the original.Images from the original note were not included.Requested Renewals Name from pharmacy: JARDIANCE 10 MG TABLET Will file in chart as: JARDIANCE 10 mg Sig: TAKE 1 TABLET BY MOUTH EVERY DAY IN THE MORNING Disp: 90 tablet Refills: 0 (Pharmacy requested: Not specified) Start: 06/10/2023 Class: eRX Non-formulary For: Type 2 diabetes mellitus without complication, with long-term current use of insulin Last ordered: 2 months ago (03/22/2023) by SUSHILA Johnston Last refill: 03/22/2023 Rx #: [id number] Off-Protocol Failed 06/10/2023 10:47 AM Protocol Details Medication not assigned to a protocol, forward to provider. Valid encounter within last 12 months To be filled at: [facility]/pharmacy #[id number] - [place], [place] - [address] [facility] [address] [place] Recent VisitsDate Type Provider Dept 06/08/23 Office Visit Ignacio Thornton, [employer] [facility] 03/19/23 Office Visit Ignacio Thornton, [employer] [facility] 03/02/23 Office Visit Ignacio Thornton, [employer] [facility] 02/16/23 Office Visit Ignacio Thornton, [employer] [facility] 08/21/22 Office Visit Ignacio Thornton, [facility] [employer] 06/20/22 Office Visit Ignacio Thornton, [employer] [facility] 03/17/22 Office Visit Ignacio Thornton, [employer] [facility] 02/14/22 Office Visit Ignacio Thornton, [employer] [facility] Showing recent visits within past 540 days with a meds authorizing provider and meeting all other requirementsFuture AppointmentsDate Type Provider Dept 09/03/23 Appointment Ignacio Thornton FNP [facility] Showing future appointments within next 150 days with a meds authorizing provider and meeting all other requirements 74713-0Ykqimxhgu encounter RkvbRN3219-38-47T11:12:10Telephone encounter NoteTXT1.2.840.412700.1.13.104.2.7.2.73607 9|[id number] for patient enyw53318-1OvojKPRUBL[address] Ey[id number] JBYHUYGQGAVOTPFQ0238-77-45P72:12:101.2.840 .421430.1.72.3.15|1.2.840.195560.1.13.104. 2.7.2.727879_[id number] 2023-06-08 15:00:00 0397-14-79W04:00:00Formatting of this note [facility] is different from the original.Images from the original note were not included.PT is here to do all labs for Ignacio Thornton FNP .Jose Alejandro Mills 06/08/2023 2:28 PMVenipuncture collection performed by clean technique on the right anticubitus. Total of 1 attempts were made. Slight pressure and a bandage/dressing were applied to the site(s). The patient experienced no complications. The following specimens were processed according to instructions and sent to [facility] laboratories per lab order on 06/08/2023: LT BLUE SST 3 RED LAV 1 PPT DK GREEN (LiHep) DK GREEN (SodH) SERNA DK BLUE (K2) DK BLUE (S) ACD Blood Culture NIPT/NTD 16103-1Ppiqv WmkjRZ1586-44-20J98:33:50Nurse NoteTXT1.2.840.189412.1.13.104.2.7.2.85944 9|[id number] for patient rwbl59960-2Togpo NoteLNUT[address] Uzfm[id number] YGVRIGBFERUOUBPE8740-04-60C54:33:501.2.840 .314026.1.72.3.15|1.2.840.976149.1.13.104. 2.7.2.727879_[id number]"
[2023-09-16] MEDS ORDERED: NA CHLORIDE 0.9% 1,000 ML ONE (15:30)
[2023-09-16 16:25] LABS: Specific Gravity > 1.030 (1.005-1.030); Urine Bilirubin NEGATIVE (Negative); Urine Blood Negative (Negative); Urine Clarity Clear (Clear); Urine Color Colorless (Yellow); Urine Glucose 4+ (Over) (Negative); Urine Protein NEGATIVE (Negative); Urine Urobilinogen Normal (Normal); Urine pH 7.5 (5.0-7.0)
[2023-09-16 16:28] LABS: Absolute Lymphocytes (CBC) 0.9 K/uL (0.7-4.9); Lymphocytes % 23.7 % (15.3-44.8); MCV 84.3 fL (80-100); MPV 8.2 fL (7.6-11.3); Platelets 179 thou/uL (152-406); RBC Red Blood Cell Count 4.87 M/uL (3.86-4.86)
--- NOTE | 2023-09-16 16:30 | RAD REPORT ---
EXAM DESCRIPTION: CT - Head C Spine Cap Wo Con - 09/16/2023 4:02 pm CLINICAL HISTORY: Head and neck injury with chest and abdominal pain status post fall TECHNIQUE: Computed axial tomography of head, neck, chest, abdomen and pelvis obtained. IV and oral contrast not requested. Coronal and sagittal reconstruction performed. All CT scans are performed using dose optimization technique as appropriate and may include automated exposure control or mA/KV adjustment according to patient size. COMPARISON: January 2023 CT chest and abdomen 2021 MRI brain FINDINGS: An intracranial bleed is not seen. The ventricles are normal in caliber. An extra-axial fluid collection is not noted. Fluid within the sinuses/mastoids is not seen. A cervical fracture is not seen. No dislocation is noted. The evaluation of mediastinum, gee, vessels, solid organs and bowel are limited secondary to the lac k of contrast administration. A mediastinal hematoma is not noted. A pleural effusion is not seen. A lung contusion is not present. The liver,spleen, pancreas, adrenals,kidneys and bladder do not demonstrate an acute traumatic injury Moderate chronic compression deformity L1 vertebral body. Calcified uterine fibroids. Small umbilical hernia . Small hemorrhagic/proteinaceous cyst right kidney benign IMPRESSION: No acute intracranial abnormality is seen. A cervical fracture is not visualized. If the patient continues to have symptoms to suggest intracran ial/spinal cord pathology MRI be recommended No acute traumatic abnormality involving the chest, abdomen or pelvis
[2023-09-16 16:40] LABS: Potassium 3.8 mEq/L (3.5-5.1)
--- NOTE | 2023-09-16 16:56 | EDPHYS ---
Physician Documentation [facility] Name: Virginia Saucedo Age: 72 yrs Sex: Female : 1950 Arrival Date: 09/16/2023 Time: 14:33 Bed 14 Private MD: ED Physician Sherman Dang HPI: 09/16 16:48 This 72 yrs old Female presents to ER via Wheelchair with complaints of Fall teodoro Injury. 16:48 Details of fall: The patient fell from an upright position, while standing. Onset: The teodoro symptoms/episode began/occurred just prior to arrival. Associated injuries: The patient sustained injury to the head, neck injury. Severity of symptoms: At their worst the symptoms were mild, in the emergency department the symptoms are unchanged. The patient has not experienced similar symptoms in the past. Historical: - Allergies: 15:04 No Known Allergies; iw - PMHx: 15:04 Diabetes - NIDDM; Lupus erythematosus; GERD; High Cholesterol; Rheumatoid Arthritis; iw THYROID CANCER; Hypertension; joint pain; - PSHx: 15:04 Stented artery; iw - Immunization history:: Adult Immunizations up to date. - Social history:: Smoking status: Patient/guardian denies using tobacco, but has a distant history of tobacco abuse. ROS: 16:48 Constitutional: Negative for fever, chills, and weight loss, Eyes: Negative for injury, teodoro pain, redness, and discharge, ENT: Negative for injury, pain, and discharge, Cardiovascular: Negative for chest pain, palpitations, and edema, Respiratory: Negative for shortness of breath, cough, wheezing, and pleuritic chest pain, Abdomen/GI: Negative for abdominal pain, nausea, vomiting, diarrhea, and constipation, Back: Negative for injury and pain, : Negative for injury, bleeding, discharge, and swelling, MS/Extremity: Negative for injury and deformity, Skin: Negative for injury, rash, and discoloration, Psych: Negative for depression, anxiety, suicide ideation, homicidal ideation, and hallucinations, Allergy/Immunology: Negative for hives, rash, and allergies, Endocrine: Negative for neck swelling, polydipsia, polyuria, polyphagia, and marked weight changes, Hematologic/Lymphatic: Negative for swollen nodes, abnormal bleeding, and unusual bruising, 16:48 Neck: Positive for pain with movement, pain at rest, 16:48 Neuro: Positive for headache, Exam: 16:48 Constitutional: This is a well developed, well nourished patient who is awake, alert, teodoro and in no acute distress. Head/Face: Normocephalic, atraumatic. Eyes: Pupils equal round and reactive to light, extra-ocular motions intact. Lids and lashes normal. Conjunctiva and sclera are non-icteric and not injected. Cornea within normal limits. Periorbital areas with no swelling, redness, or edema. ENT: Nares patent. No nasal discharge, no septal abnormalities noted. Tympanic membranes are normal and external auditory canals are clear. Oropharynx with no redness, swelling, or masses, exudates, or evidence of obstruction, uvula midline. Mucous membranes moist. Neck: Trachea midline, no thyromegaly or masses palpated, and no cervical lymphadenopathy. Supple, full range of motion without nuchal rigidity, or vertebral point tenderness. No Meningismus. Chest/axilla: Normal chest wall appearance and motion. Nontender with no deformity. No lesions are appreciated. Respiratory: Lungs have equal breath sounds bilaterally, clear to auscultation and percussion. No rales, rhonchi or wheezes noted. No increased work of breathing, no retractions or nasal flaring. Abdomen/GI: Soft, non-tender, with normal bowel sounds. No distension or tympany. No guarding or rebound. No evidence of tenderness throughout. Skin: Warm, dry with normal turgor. Normal color with no rashes, no lesions, and no evidence of cellulitis. MS/ Extremity: Pulses equal, no cyanosis. Neurovascular intact. Full, normal range of motion. Neuro: Awake and alert, GCS 15, oriented to person, place, time, and situation. Cranial nerves II-XII grossly intact. Motor strength 5/5 in all extremities. Sensory grossly intact. Cerebellar exam normal. Normal gait. Psych: Awake, alert, with orientation to person, place and time. Behavior, mood, and affect are within normal limits. 16:48 Cardiovascular: Rate: normal, actual rate is 85 bpm, Rhythm: regular, Pulses: no pulse deficits are appreciated, Heart sounds: normal, Edema: is not appreciated, JVD: is not appreciated, 16:48 Back: pain, that is mild, of the left scapular area, right scapular area and thoracic area, ROM is painful, with flexion, with extension, normal spinal alignment noted, CVA tenderness, is absent, vertebral tenderness, is not appreciated, muscle spasm, is appreciated in the left scapular area, right scapular area, left mid back and right mid back, 16:48 Musculoskeletal/extremity: Exam is negative for acute changes, Vital Signs: 15:03 BP 154 / 83; Pulse 93; Resp 16; Temp 98.1; Pulse Ox 98% on R/A; Weight 76.2 kg; Height iw 5 ft. 0 in. ; Pain 4/10; 16:31 BP 124 / 63; Pulse 85; Resp 17 S; Pulse Ox 100% on R/A; kc6 15:03 Body Mass Index 32.81 (76.20 kg, 152.4 cm) iw 15:03 Pain Scale: Adult iw Danitza Coma Score: 16:52 Eye Response: spontaneous(4). Motor Response: obeys commands(6). Verbal Response: teodoro oriented(5). Total: 15. MDM: 14:47 Patient medically screened. teodoro 16:52 Differential diagnosis: Contusion of Hematoma on Intracranial bleed- Concussion without teodoro LOC. Differential diagnosis: abrasion, closed head injury, contusion, fracture, laceration, multiple trauma, sprain, strain. Data reviewed: vital signs, nurses notes, lab test result(s), radiologic studies, CT scan. Consideration of Admission/Observation Escalation of care including admission/observation considered. I considered the following discharge prescriptions or medication management in the emergency department Medications were administered in the Emergency Department. See MAR. Independent interpretation of the following test(s) in the Emergency Department CT Scan: My interpretation is ct trauma scan. Test considered but Not performed: EKG: no ekg. Historians other than the Patient: Spouse/Significant Other: , WELL INFORMED. Care significantly affected by the following chronic conditions: Diabetes, Hypertension, Obesity, gerd, RA, SLE. Counseling: I had a detailed discussion with the patient and/or guardian regarding the historical points, exam findings, and any diagnostic results supporting the discharge/admit diagnosis, lab results, radiology results, the need for outpatient follow up, for definitive care, a family practitioner. 09/16 15:09 Order name: Basic Metabolic Panel; Complete Time: 16:47 teodoro 09/16 15:09 Order name: CBC with Diff; Complete Time: 16:33 teodoro 09/16 15:09 Order name: Type And Screen [facility] 09/16 15:09 Order name: Urinalysis w/ reflexes; Complete Time: 16:33 [facility] 09/16 15:09 Order name: CT Traumagram (Head C Spine CAP wo con); Complete Time: 16:33 [facility] 09/16 15:09 Order name: Labs collected and sent; Complete Time: 16:15 teodoro Administered Medications: 16:15 Drug: NS 0.9% IV 1000 ml IV at 1 bolus Per protocol; 1000 mL bolus Route: IV; Rate: 1 kc6 bolus; Site: right antecubital; 17:06 Follow up: Response: No adverse reaction; IV Status: Completed infusion; IV Intake: kc6 1000ml Disposition Summary: 09/16/23 16:55 Discharge Ordered Notes: Location: Home teodoro Problem: new teodoro Symptoms: have improved teodoro Condition: Stable teodoro Diagnosis - Fall on same level, unspecified teodoro - Unspecified injury of head, initial encounter teodoro - Strain of muscle, fascia and tendon at neck level, initial encounter teodoro - Unspecified symptoms and signs involving the musculoskeletal system teodoro Followup: teodoro - With: Private Physician - When: 2 - 3 days - Reason: Recheck today's complaints, Continuance of care, Re-evaluation by your physician Discharge Instructions: - Discharge Summary Sheet teodoro - Head Injury, Adult teodoro - Muscle Strain teodoro - Neck Contusion teodoro - Muscle Strain, [id number] teodoro - Head Injury, Adult, [id number] teodoro - Neck Contusion, [id number] [facility] Forms: - Medication Reconciliation Form [facility] - Thank You Letter [facility] - Antibiotic Education teodoro - Prescription Opioid Use [facility] - Patient Portal Instructions [facility] - Leadership Thank You Letter [facility] Prescriptions: - acetaminophen-codeine 300-30 mg Oral tablet - take 2 tablet ORAL route every 6 hours; 20 tablet; Refills: 0, Product teodoro Selection Permitted - diclofenac sodium 50 mg Oral tablet, delayed release (enteric coated) - take 1 tablet ORAL route every 12 hours as needed for pain; 14 tablet; Refills: teodoro 0, Product Selection Permitted Signatures: Dispatcher [employer] Sherman De Guzman MD MD cha Williams, Irene RN Shanna Jones RN RN kc6
--- NOTE | 2023-09-16 16:56 | ER ---
Nurse's Notes [facility] Name: Virginia Saucedo Age: 72 yrs Sex: Female : 1950 Arrival Date: 09/16/2023 Time: 14:33 Bed 14 Private MD: Diagnosis: Fall on same level, unspecified;Unspecified injury of head, initial encounter;Strain of muscle, fascia and tendon at neck level, initial encounter;Unspecified symptoms and signs involving the musculoskeletal system Presentation: 09/16 15:01 Chief complaint: Patient states: was putting sheets on her bed and went to pull the iw sheet, she didn't realize the sheet was not hooked to the other side of bed and she fell back hit her head, no LOC, on plavix, her daughter told her to come get checked out as a precaution. Coronavirus screen: At this time, the client does not indicate any symptoms associated with coronavirus-19. Ebola Screen: Patient negative for fever greater than or equal to 101.5 degrees Fahrenheit, and additional compatible Ebola Virus Disease symptoms Patient denies exposure to infectious person. Patient denies travel to an Ebola-affected area in the 21 days before illness onset. No symptoms or risks identified at this time. 15:01 Method Of Arrival: Wheelchair iw 15:01 Acuity: ANUSHA 4 iw 15:02 Initial Sepsis Screen: Does the patient meet any 2 criteria? No. Patient's initial iw sepsis screen is negative. Does the patient have a suspected source of infection? No. Patient's initial sepsis screen is negative. Risk Assessment: Do you want to hurt yourself or someone else? Patient reports no desire to harm self or others. Onset of symptoms was September 16, 2023. Historical: - Allergies: 15:04 No Known Allergies; iw - PMHx: 15:04 Diabetes - NIDDM; Lupus erythematosus; GERD; High Cholesterol; Rheumatoid Arthritis; iw THYROID CANCER; Hypertension; joint pain; - PSHx: 15:04 Stented artery; iw - Immunization history:: Adult Immunizations up to date. - Social history:: Smoking status: Patient/guardian denies using tobacco, but has a distant history of tobacco abuse. Screenin:30 [facility] ED Fall Risk Assessment (Adult) History of falling in the last 3 months, kc6 including since admission Yes- single mechanical fall (1 pt) Confusion or Disorientation No (0 pts) Intoxicated or Sedated No (0 pts) Impaired Gait No (0 pts) Mobility Assist Device Used No (0 pt) Altered Elimination No (0 pt) Score/Fall Risk Level 0 - 2 = Low Risk. Abuse screen: Denies threats or abuse. Denies injuries from another. Nutritional screening: No deficits noted. Tuberculosis screening: No symptoms or risk factors identified. Assessment: 15:30 General: Appears in no apparent distress. comfortable, Behavior is calm, cooperative, kc6 appropriate for age. Neuro: Level of Consciousness is awake, alert, obeys commands, Oriented to person, place, time, situation, Appropriate for age Reports headache. Cardiovascular: Capillary refill < 3 seconds. Respiratory: Airway is patent Trachea midline Respiratory effort is even, unlabored, Respiratory pattern is regular, symmetrical. GI: No signs and/or symptoms were reported involving the gastrointestinal system. : No signs and/or symptoms were reported regarding the genitourinary system. EENT: No signs and/or symptoms were reported regarding the EENT system. Derm: No signs and/or symptoms reported regarding the dermatologic system. Skin is intact, is healthy with good turgor, Skin is pink, warm \T\ dry. Musculoskeletal: No signs and/or symptoms reported regarding the musculoskeletal system. Circulation, motion, and sensation intact. Capillary refill < 3 seconds, Range of motion: intact in all extremities. 16:30 Reassessment: Patient appears in no apparent distress at this time. No changes from kc6 previously documented assessment. Patient and/or family updated on plan of care and expected duration. Pain level reassessed. Patient is alert, oriented x 3, equal unlabored respirations, skin warm/dry/pink. Vital Signs: 15:03 BP 154 / 83; Pulse 93; Resp 16; Temp 98.1; Pulse Ox 98% on R/A; Weight 76.2 kg; Height iw 5 ft. 0 in. ; Pain 4/10; 16:31 BP 124 / 63; Pulse 85; Resp 17 S; Pulse Ox 100% on R/A; kc6 15:03 Body Mass Index 32.81 (76.20 kg, 152.4 cm) iw 15:03 Pain Scale: Adult iw Danitza Coma Score: 16:52 Eye Response: spontaneous(4). Motor Response: obeys commands(6). Verbal Response: teodoro oriented(5). Total: 15. ED Course: 14:35 Patient arrived in ED. rg4 14:47 Sherman Dang MD is Attending Physician. teodoro 14:52 Shanna Rolle, RN is Primary Nurse. kc6 15:02 Triage completed. iw 15:03 Arm band placed on. iw 15:30 Patient has correct armband on for positive identification. Bed in low position. Call kc6 light in reach. Side rails up X2. Adult w/ patient. Client placed on continuous cardiac and pulse oximetry monitoring. NIBP monitoring applied. 15:30 Patient maintains SpO2 saturation greater than 95% on room air. kc6 16:04 CT Traumagram (Head C Spine CAP wo con) In Process Unspecified. EDMS 16:15 Inserted saline lock: 20 gauge in right antecubital area, using aseptic technique. kc6 Blood collected. 17:06 No provider procedures requiring assistance completed. IV discontinued, intact, kc6 bleeding controlled, No redness/swelling at site. Pressure dressing applied. Administered Medications: 16:15 Drug: NS 0.9% IV 1000 ml IV at 1 bolus Per protocol; 1000 mL bolus Route: IV; Rate: 1 kc6 bolus; Site: right antecubital; 17:06 Follow up: Response: No adverse reaction; IV Status: Completed infusion; IV Intake: kc6 1000ml Medication: 17:07 VIS not applicable for this client. kc6 Intake: 17:06 IV: 1000ml; Total: 1000ml. kc6 Outcome: 16:55 Discharge ordered by . [facility] 17:07 Discharged to home ambulatory, with significant other, kc6 17:07 Condition: improved 17:07 Discharge instructions given to patient, significant other, Instructed on discharge instructions, follow up and referral plans. medication usage, Demonstrated understanding of instructions, follow-up care, medications, Prescriptions given X 2, 17:08 Patient left the ED. kc6 Signatures: Dispatcher [employer] EDNE Sherman Dang MD MD cha Williams, Irene, RN Janelle Gonzalez rg4 Shnana Rolle, ESTHER RN [facility]
[2023-09-16 17:51] VITALS: TEMP 98.1
[2023-09-16 17:53] VITALS: BP 124/63; O2SAT 100
== END 2023-09-16 17:08 | disposition home or self-care (01) ==
LOC: ER 14:33
DX: S13.9XXA Sprain of joints and ligaments of unspecified parts of neck, initial encounter (principal); R29.91 Unspecified symptoms and signs involving the musculoskeletal system; W18.30XA Fall on same level, unspecified, initial encounter; E11.9 Type 2 diabetes mellitus without complications; I10 Essential (primary) hypertension
CPT/HCPCS: 85025; 80048; 36415; 86900; 86850; 86901; 81003; 70450; 71250; 72125; 96360; 99285; J7030

== ENCOUNTER 2023-11-19 07:00 | Day surgery (SDC) | payer OTHER ==
[2023-11-16 13:56] LABS: Hematocrit 39.4 % (36.0-45.0); Lymphocytes % 22.3 % (15.3-44.8); MCV 84.2 fL (80-100); MPV 8.4 fL (7.6-11.3); Platelets 184 thou/uL (152-406); RBC Red Blood Cell Count 4.68 M/uL (3.86-4.86)
[2023-11-16 14:11] LABS: Potassium 4.3 mEq/L (3.5-5.1)
[2023-11-16 14:24] LABS: Protime INR 1.13
--- NOTE | 2023-11-16 14:34 | RAD REPORT ---
EXAM DESCRIPTION: Chad Cruz And Lat (2 Views)11/16/2023 2:15 pm CLINICAL HISTORY: Preop for cardiac catheterization COMPARISON: 2022 FINDINGS: The lungs appear clear of acute infiltrate. The heart is normal size IMPRESSION: No acute abnormalities displayed
[2023-11-19] MEDS ORDERED: NA CHLORIDE 0.9% 500 ML ONE (07:06)
[2023-11-19] MEDS ORDERED: NITROGLYCERIN/D5W 25 MG/250 ML BTL IV ONE (07:08)
[2023-11-19] MEDS ORDERED: HEPA 1000U/500MLS 2,000 UNIT/1,000 ML BAG IV ONE (07:08)
[2023-11-19] MEDS ORDERED: LIDOCAINE 1% 20 ML MDV ONE (07:09)
[2023-11-19] MEDS ORDERED: VERAPAMIL HCL 10 MG/4 ML VIAL IV ONE (07:09)
[2023-11-19] MEDS ORDERED: MIDAZOLAM HCL 2 MG/2 ML INJ ONE (07:09)
[2023-11-19] MEDS ORDERED: FENTANYL CITR 100 MCG/2 ML ONE (07:09)
[2023-11-19] MEDS ORDERED: ATROPINE SULF 1 MG/10 ML SYR IV ONE (07:09)
[2023-11-19] MEDS ORDERED: TICAGRELOR 90 MG TABLET PO ONE (07:10)
[2023-11-19] MEDS ORDERED: HEPARIN 5000 UNIT/ML 1 ML VIAL ONE (07:10)
[2023-11-19] MEDS ORDERED: HEPARIN 10,000 UNIT/10 ML VIAL IV ONE (07:10)
[2023-11-19] MEDS ORDERED: CLOPIDOGREL 75 MG TABLET ONE (07:10)
[2023-11-19] MEDS ORDERED: ASPIRIN 325 MG TAB ONE (07:11)
[2023-11-19] MEDS ORDERED: METOPROLOL TARTRATE 5 MG/5 ML INJ IV ONE ×2 (08:27→08:48)
[2023-11-19] MEDS ORDERED: REGADENOSON 0.4 MG/5 ML SYR IV ONE (08:31)
[2023-11-19] MEDS ORDERED: ONDANSETRON 4 MG/2 ML VIAL ONE ×2 (08:48→08:49)
--- NOTE | 2023-11-19 09:53 | OP ---
Date of Procedure: 11/19/2023 Surgeon: CHEL NORTON Procedures Performed: 1.Selective coronary angiogram. 2.Left heart catheterization. 3.FFR of mid LAD, value of 0.77, indicating severe stenosis. Indication: Unstable angina. Access: Right radial artery, 6-Beninese closed with TR band. Complications: None. Bleeding: Less than 20 mL. Anesthesia: Total sedation time was 50 minutes, used fentanyl and versed. Description Of Procedure: After risks, benefits, and alternatives were explained, the patient agreed to procedure and signed informed consent. The patient was brought into cardiac catheterization labo [facility], prepped and draped in usual sterile fashion. Then, I accessed right radial artery using pedi atric micropuncture kit, placed a 6-Beninese Duenweg sheath, and took 5-Beninese tiger 4.0 catheter into the aortic root, engaged left main, and took several views and then the RCA, took standard views and then catheter was pushed over the wire into the LV, measured the LVEDP. Pullback did not record any gradient and gave systemic heparin to assure ACT level above 250 and took an FFR wire into the aorti c root. Pressures were equalized and then engaged the left main again and then took the FFR wire int o the LAD, placed it distally and then using Lexiscan, the FFR was performed and it was 0.77, pulled the wire back and there was no drift during the procedure. Heparin was given to assure ACT level abo ve 250. Then, the wire was removed. Final angiogram was satisfactory. No complication. Then, I re moved the catheter and the sheath and placed a TR band with good hemostasis. Findings: 1.Left main has distal 30% stenosis. 2.LAD; proximal to mid long 70% stenosis. FFR 0.77. Rest of the LAD with luminal irregularities. 3.Left circumflex; large and dominant, proximal 40%. There is large OM with patent stent, but befor e the stent, proximally is 80% stenosis. Rest of the circ is normal. 4.RCA; small, nondominant with luminal irregularities. 5.Elevated LVEDP at 18 mmHg. Conclusions: 1.Severe LAD stenosis by FFR, heavily calcified. 2.Severe proximal OM1 stenosis. Recommendation: Plan for staged PCI with shockwave versus atherectomy of the LAD at [facility] wed by the PCI of the OM branch. It should be done both at [place] at the same time. SR/MARILYNL Voice ID: [id number] Report ID: [id number]
[2023-11-19] MEDS: ACETAMINOPHEN 325 MG TABLET ONE (10:49)
[2023-11-19 11:59] VITALS: BP 106/62; O2SAT 100
--- NOTE | 2023-11-19 15:09 | EKG ---
Test Date: 2023-11-16 Test Time: 14:36:51 Workplace Trainer And Assessor: JAY MEASUREMENT RESULTS: Intervals: Rate: 64 CO: 112 QRSD: 84 QT: 400 QTc: 412 [place]: P: 23 CO: 112 QRS: 21 T: 52 INTERPRETIVE STATEMENTS: Normal sinus rhythm Low voltage QRS Septal infarct, age undetermined Abnormal ECG Compared to ECG 02/04/2023 23:05:34 Low QRS voltage now present Myocardial infarct finding now present Sinus tachycardia no longer present T-wave abnormality no longer present Electronically Signed On 11-19-23 15:02:08 [employer] INST[employer]ATION HELPER by Josef Daniels
== END 2023-11-19 12:06 | disposition home or self-care (01) ==
LOC: CCL 07:00
PROVIDERS: ATTEND Internal Medicine
DX: I25.110 Atherosclerotic heart disease of native coronary artery with unstable angina pectoris (principal); I65.23 Occlusion and stenosis of bilateral carotid arteries; I10 Essential (primary) hypertension; E78.5 Hyperlipidemia, unspecified; E11.9 Type 2 diabetes mellitus without complications; K21.9 Gastro-esophageal reflux disease without esophagitis; E03.9 Hypothyroidism, unspecified; Z95.5 Presence of coronary angioplasty implant and graft; Z87.891 Personal history of nicotine dependence; Z79.02 Long term (current) use of antithrombotics/antiplatelets; Z79.84 Long term (current) use of oral hypoglycemic drugs; Z79.899 Other long term (current) drug therapy; Z98.84 Bariatric surgery status; Z82.49 Family history of ischemic heart disease and other diseases of the circulatory system
CPT/HCPCS: 36415; 71046; 76937; 80048; 82947; 85025; 85347; 85610; 85730; 93005; 93458; 93571; 99152; 99153; C1769; C1893; J0461; J1644; J2001; J2250; J2405; J2785; J3010; J7040; Q9966

== ENCOUNTER 2024-10-28 10:54 | Emergency (ER) | payer OTHER ==
--- NOTE | 2024-10-28 12:16 | RAD REPORT ---
EXAMINATION: CT HEAD WITHOUT CONTRAST CT CERVICAL SPINE WITHOUT CONTRAST CLINICAL INDICATION: Female, 73 years old. FALL, LT SIDE HEAD PAIN TECHNIQUE: Axial CT images from the skull base to the vertex without intravenous contrast. Axial CT i mages through the cervical spine were obtained without intravenous contrast. Sagittal and coronal reformatted images were created from the data set. Coronal and sagittal reformatted images were creat ed from the data set. One or more of the following dose reduction techniques were used: Automated exposure control, adjustment of the mA and/or kV according to patient size, and/or iterative reconstr uction. Unless otherwise specified, incidental findings do not require dedicated imaging follow-up. [id number]. COMPARISON: Head ct 10/28/24 FINDINGS: Head: INTRACRANIAL: No acute intracranial hemorrhage. No hydrocephalus. No mass effect or midline shift. No significant white matter disease VASCULATURE: No visualized abnormalities in the arteries or dural venous sinuses. SCALP/SKULL: No significant soft tissue or osseous abnormalities. SINUSES: The visualized paranasal sinuses and mastoid air cells are predominantly clear. Cervical spine: ALIGNMENT: The cervical spine has normal alignment without scoliosis or spondylolisthesis. BONE: Vertebral body heights are maintained. No aggressive osseous lesions. DEGENERATIVE CHANGES: Mild multilevel cervical spondylosis with varying degrees of neural foraminal n arrowing. No high grade central spinal stenosis. SOFT TISSUE: No significant abnormalities in the soft tissue of the neck. The visualized lung apices are clear. IMPRESSION: No acute intracranial abnormality. No acute fracture or traumatic malalignment of the cervical spine.
--- NOTE | 2024-10-28 12:38 | RAD REPORT ---
EXAMINATION: XR LEFT WRIST CLINICAL INDICATION: PAIN TECHNIQUE: Multiple projections of the left wrist were obtained. COMPARISON: No prior exam. FINDINGS: Slight widening of the scapholunate interval may represent tear of the ligament. The bones are generally osteopenic. No acute fracture or dislocation.
[2024-10-28] MEDS ORDERED: ACETAMINOPHEN 325 MG TABLET ONE (13:24)
--- NOTE | 2024-10-28 14:05 | ER ---
Nurse's Notes [facility] Name: Virginia Saucedo Age: 73 yrs Sex: Female : 1950 Arrival Date: 10/28/2024 Time: 10:54 Bed DX4 Private MD: Diagnosis: Fall on same level, unspecified;Contusion of left wrist;Unspecified injury of head, initial encounter Presentation: 10/28 11:33 Chief complaint: EMS states: Called to patient's home for fall. Pt states that she was cm10 walking down a step in the garage and lost her balance. Pt reports that she hit her head on the washing machine. pt complaining of pain to left wrist and head. No LOC. Pt takes plavix daily. Coronavirus screen: Client denies travel out of the [place] in the last 14 days. Ebola Screen: Patient denies travel to an Ebola-affected area in the 21 days before illness onset. No symptoms or risks identified at this time. Initial Sepsis Screen: Does the patient meet any 2 criteria? No. Patient's initial sepsis screen is negative. Does the patient have a suspected source of infection? No. Patient's initial sepsis screen is negative. Risk Assessment: Do you want to hurt yourself or someone else? Patient reports no desire to harm self or others. Onset of symptoms was October 28, 2024. 11:33 Method Of Arrival: EMS: [facility]10 11:33 Acuity: ANUSHA 3 cm10 Triage Assessment: 11:41 General: Appears in no apparent distress. comfortable, Behavior is calm, cooperative. cm10 Neuro: No deficits noted. Level of Consciousness is awake, alert, obeys commands, Oriented to person, place, time, situation, Appropriate for age. Respiratory: No deficits noted. Airway is patent Respiratory effort is even, unlabored, Respiratory pattern is regular, symmetrical. Historical: - Allergies: 11:35 No Known Allergies; cm10 - Home Meds: 11:35 Nexium 40 mg Oral cpDR 1 cap once daily [Active]; Jardiance 10 mg oral tablet 1 tab cm10 daily [Active]; metoprolol succinate 100 mg oral Tablet, Extended Release 24 hr 2 tabs daily [Active]; rosuvastatin 40 mg oral tablet 1 tab daily [Active]; levothyroxine 112 mcg oral tablet 1 tab daily [Active]; clopidogrel 75 mg oral tablet 1 tab daily [Active]; leflunomide 20 mg oral tablet 1 tab daily [Active]; gabapentin 900 mg oral Tablet, Extended Release 24 hr three times a day [Active]; duloxetine 60 mg oral capsule,delayed release (e.c.) [Active]; aspirin 81 mg Oral chew 1 tab once daily [Active]; - PMHx: 11:35 Diabetes - NIDDM; GERD; High Cholesterol; Hypertension; joint pain; Lupus cm10 erythematosus; Rheumatoid Arthritis; THYROID CANCER; Muscular Dystrophy; - PSHx: 11:35 Stented artery; Thyroidectomy; Cholecystectomy; cm10 - Immunization history:: Adult Immunizations up to date. - Infectious Disease History:: Denies. - Social history:: Smoking status: Patient denies any tobacco usage or history of. Screenin:33 [facility] ED Fall Risk Assessment (Adult) History of falling in the last 3 months, jl7 including since admission Yes- single mechanical fall (1 pt) Confusion or Disorientation No (0 pts) Intoxicated or Sedated No (0 pts) Impaired Gait No (0 pts) Mobility Assist Device Used No (0 pt) Altered Elimination No (0 pt) Score/Fall Risk Level 0 - 2 = Low Risk Oriented to surroundings, Maintained a safe environment. Abuse screen: Denies threats or abuse. Denies injuries from another. Nutritional screening: No deficits noted. Tuberculosis screening: No symptoms or risk factors identified. Assessment: 13:32 General: Appears in no apparent distress. uncomfortable, Behavior is calm, cooperative, jl7 appropriate for age. Pain: Complains of pain in head Pain currently is 5 out of 10 on a pain scale. Neuro: Level of Consciousness is awake, alert, obeys commands, Oriented to person, place, time, situation. Cardiovascular: Patient's skin is warm and dry. Respiratory: Airway is patent Respiratory effort is even, unlabored, Respiratory pattern is regular, symmetrical. Derm: Skin is pink, warm \\T\\ dry. Vital Signs: 11:33 BP 129 / 69; Pulse 73; Resp 15; Temp 98.1(O); Pulse Ox 94% on R/A; Weight 77.11 kg; cm10 Height 5 ft. 0 in. ; Pain 4/10; 11:33 Body Mass Index 33.20 (77.11 kg, 152.4 cm) cm10 11:33 Pain Scale: Adult cm10 Danitza Coma Score: 14:02 Eye Response: spontaneous(4). Motor Response: obeys commands(6). Verbal Response: teodoro oriented(5). Total: 15. ED Course: 11:06 Patient arrived in ED. ra3 11:16 Sherman Dang MD is Attending Physician. teodoro 11:35 Triage completed. cm10 11:41 Arm band placed on right wrist. Patient placed in waiting room. cm10 12:00 Head C Spine Mpr Wo Con In Process Unspecified. EDMS 12:09 Wrist Left 3 View In Process Unspecified. EDMS 13:33 Patient has correct armband on for positive identification. jl7 13:33 No provider procedures requiring assistance completed. Patient did not have IV access jl7 during this emergency room visit. 14:04 Hadley Givens MD is Referral Physician. teodoro 14:16 Donna Art, RN is Primary Nurse. ld1 14:32 Provided Education on: discharge. jl7 14:32 Velcro wrist splint applied to left wrist. jl7 Administered Medications: 13:32 Drug: Acetaminophen PO 650 mg PO once Route: PO; jl7 14:31 Follow up: Response: No adverse reaction; Pain is unchanged, physician notified; Pain jl7 is unchanged, physician notified. pt states "We have something better at home for the pain." Medication: 13:33 VIS not applicable for this client. jl7 Outcome: 14:04 Discharge ordered by . teodoro 14:32 Discharged to home via wheelchair, jl7 14:32 Condition: stable 14:32 Discharge instructions given to patient, family, Instructed on discharge instructions, follow up and referral plans. Demonstrated understanding of instructions, follow-up care, 14:33 Patient left the ED. jl7 Signatures: Dispatcher [employer] EDMS Sherman Dang MD MD cha Leal, Jahala, RN RN jl7 Donna Art, ESTHER RN ld1 Danisha Robledo RN RN Kelsy Major ra3 Corrections: (The following items were deleted from the chart) 13:37 13:32 To radiology for Head C Spine MPR Wo Con+CT.RAD.BRZ. jl7 EDMS 13:49 13:32 To radiology for Wrist Left 3 View+RAD.RAD.BRZ. jl7 EDMS
--- NOTE | 2024-10-28 14:05 | EDPHYS ---
Physician Documentation [facility] Name: Virginia Saucedo Age: 73 yrs Sex: Female : 1950 Arrival Date: 10/28/2024 Time: 10:54 Bed DX4 Private MD: ED Physician Sherman Dang HPI: 10/28 13:59 This 73 yrs old Female presents to ER via EMS with complaints of Fall Injury. teodoro 13:59 Details of fall: The patient fell from an upright position, while standing, while teodoro walking. Onset: The symptoms/episode began/occurred just prior to arrival. Associated injuries: The patient sustained injury to the head, contusion, pain, swelling, tenderness, lateral aspect of left wrist and medial aspect of left wrist, decreased range of motion. Severity of symptoms: At their worst the symptoms were mild, moderate, in the emergency department the symptoms are unchanged. The patient has not experienced similar symptoms in the past. Historical: - Allergies: 11:35 No Known Allergies; cm10 - Home Meds: 11:35 Nexium 40 mg Oral cpDR 1 cap once daily [Active]; Jardiance 10 mg oral tablet 1 tab cm10 daily [Active]; metoprolol succinate 100 mg oral Tablet, Extended Release 24 hr 2 tabs daily [Active]; rosuvastatin 40 mg oral tablet 1 tab daily [Active]; levothyroxine 112 mcg oral tablet 1 tab daily [Active]; clopidogrel 75 mg oral tablet 1 tab daily [Active]; leflunomide 20 mg oral tablet 1 tab daily [Active]; gabapentin 900 mg oral Tablet, Extended Release 24 hr three times a day [Active]; duloxetine 60 mg oral capsule,delayed release (e.c.) [Active]; aspirin 81 mg Oral chew 1 tab once daily [Active]; - PMHx: 11:35 Diabetes - NIDDM; GERD; High Cholesterol; Hypertension; joint pain; Lupus cm10 erythematosus; Rheumatoid Arthritis; THYROID CANCER; Muscular Dystrophy; - PSHx: 11:35 Stented artery; Thyroidectomy; Cholecystectomy; cm10 - Immunization history:: Adult Immunizations up to date. - Infectious Disease History:: Denies. - Social history:: Smoking status: Patient denies any tobacco usage or history of. ROS: 13:59 Constitutional: Negative for fever, chills, and weight loss, Eyes: Negative for injury, teodoro pain, redness, and discharge, ENT: Negative for injury, pain, and discharge, Neck: Negative for injury, pain, and swelling, Cardiovascular: Negative for chest pain, palpitations, and edema, Respiratory: Negative for shortness of breath, cough, wheezing, and pleuritic chest pain, Abdomen/GI: Negative for abdominal pain, nausea, vomiting, diarrhea, and constipation, Back: Negative for injury and pain, : Negative for injury, bleeding, discharge, and swelling, Skin: Negative for injury, rash, and discoloration, Neuro: Negative for headache, weakness, numbness, tingling, and seizure, Psych: Negative for depression, anxiety, suicide ideation, homicidal ideation, and hallucinations, Allergy/Immunology: Negative for hives, rash, and allergies, Endocrine: Negative for neck swelling, polydipsia, polyuria, polyphagia, and marked weight changes, Hematologic/Lymphatic: Negative for swollen nodes, abnormal bleeding, and unusual bruising, 13:59 MS/extremity: Positive for injury or acute deformity, decreased range of motion, pain, of the lateral aspect of left wrist and medial aspect of left wrist, Exam: 13:59 Constitutional: This is a well developed, well nourished patient who is awake, alert, teodoro and in no acute distress. Eyes: Pupils equal round and reactive to light, extra-ocular motions intact. Lids and lashes normal. Conjunctiva and sclera are non-icteric and not injected. Cornea within normal limits. Periorbital areas with no swelling, redness, or edema. ENT: Nares patent. No nasal discharge, no septal abnormalities noted. Tympanic membranes are normal and external auditory canals are clear. Oropharynx with no redness, swelling, or masses, exudates, or evidence of obstruction, uvula midline. Mucous membranes moist. Neck: Trachea midline, no thyromegaly or masses palpated, and no cervical lymphadenopathy. Supple, full range of motion without nuchal rigidity, or vertebral point tenderness. No Meningismus. Chest/axilla: Normal chest wall appearance and motion. Nontender with no deformity. No lesions are appreciated. Cardiovascular: Regular rate and rhythm with a normal S1 and S2. No gallops, murmurs, or rubs. Normal PMI, no JVD. No pulse deficits. Respiratory: Lungs have equal breath sounds bilaterally, clear to auscultation and percussion. No rales, rhonchi or wheezes noted. No increased work of breathing, no retractions or nasal flaring. Abdomen/GI: Soft, non-tender, with normal bowel sounds. No distension or tympany. No guarding or rebound. No evidence of tenderness throughout. Back: No spinal tenderness. No costovertebral tenderness. Full range of motion. Female : Normal external genitalia. Skin: Warm, dry with normal turgor. Normal color with no rashes, no lesions, and no evidence of cellulitis. Neuro: Awake and alert, GCS 15, oriented to person, place, time, and situation. Cranial nerves II-XII grossly intact. Motor strength 5/5 in all extremities. Sensory grossly intact. Cerebellar exam normal. Normal gait. Psych: Awake, alert, with orientation to person, place and time. Behavior, mood, and affect are within normal limits. 13:59 Head/face: Noted is contusion, swelling, that is mild, of the left side of the back of head, left occipital area, right side of the back of head and right occipital area, 13:59 Musculoskeletal/extremity: ROM: full active range of motion, full passive range of motion, Circulation is intact in all extremities. Sensation intact. Compartment Syndrome exam of affected extremity: is normal. Joints: All joints appear normal with full range of motion. All joints are normal except the left wrist displays tenderness, DVT Exam: no pain, no swelling, no tenderness, negative Homans' sign noted on exam, no appreciated bluish discoloration, no erythema, no increased warmth, Vital Signs: 11:33 BP 129 / 69; Pulse 73; Resp 15; Temp 98.1(O); Pulse Ox 94% on R/A; Weight 77.11 kg; cm10 Height 5 ft. 0 in. ; Pain 4/10; 11:33 Body Mass Index 33.20 (77.11 kg, 152.4 cm) cm10 11:33 Pain Scale: Adult cm10 Danitza Coma Score: 14:02 Eye Response: spontaneous(4). Motor Response: obeys commands(6). Verbal Response: teodoro oriented(5). Total: 15. MDM: 11:16 Medical Screening Exam initiated [facility] 11:48 Medical Screening Exam initiated [facility] 14:02 Differential diagnosis: Contusion of Intracranial bleed- Concussion without LOC. teodoro cerebral contusion. Differential diagnosis: abrasion, closed head injury, contusion, fracture, multiple trauma, sprain, strain. Data reviewed: vital signs, nurses notes, radiologic studies, CT scan, plain films. Consideration of Admission/Observation Escalation of care including admission/observation considered. I considered the following discharge prescriptions or medication management in the emergency department Medications were administered in the Emergency Department. See MAR. Independent interpretation of the following test(s) in the Emergency Department CT Scan: My interpretation is CT HEAD /C SPINE. Test considered but Not performed: Labs: NO LABS. Historians other than the Patient: Family Member: FAMILY WELL INFORMED. 10/28 11:57 Order name: Head C Spine Mpr Wo Con; Complete Time: 13:56 EDMS 10/28 12:01 Order name: Wrist Left 3 View; Complete Time: 13:56 EDMS 10/28 12:16 Order name: CT; Complete Time: 13:56 EDMS 10/28 12:38 Order name: RAD; Complete Time: 13:56 EDMS 10/28 13:57 Order name: Splint - Wrist: COCK UP; Complete Time: 14:31 teodoro Administered Medications: 13:32 Drug: Acetaminophen PO 650 mg PO once Route: PO; jl7 14:31 Follow up: Response: No adverse reaction; Pain is unchanged, physician notified; Pain jl7 is unchanged, physician notified. pt states "We have something better at home for the pain." Disposition Summary: 10/28/24 14:04 Discharge Ordered Notes: Location: Home teodoro Problem: new teodoro Symptoms: have improved teodoro Condition: Stable teodoro Diagnosis - Fall on same level, unspecified teodoro - Contusion of left wrist teodoro - Unspecified injury of head, initial encounter teodoro Followup: teodoro - With: Private Physician - When: 2 - 3 days - Reason: Recheck today's complaints, Continuance of care, Re-evaluation by your physician Followup: teodoro - With: Hadley Givens MD - When: 2 - 3 days - Reason: Recheck today's complaints, Re-evaluation by your physician Discharge Instructions: - Discharge Summary Sheet teodoro - Head Injury, Adult teodoro - Fall Prevention in the Home, Adult teodoro - Wrist Pain, Adult teodoro - Wrist Pain, Adult, [id number] teodoro - Fall Prevention in the Home, Adult, [id number] teodoro - Head Injury, Adult, [id number] teodoro - Wrist Sprain, Adult teodoro - Wrist Splint or Brace, Pediatric teodoro Forms: - Medication Reconciliation Form teodoro - Antibiotic Education teodoro - Prescription Opioid Use teodoro - Patient Portal Instructions teodoro - Leadership Thank You Letter teodoro Prescriptions: - Tylenol 325 mg Oral tablet - take 2 tablets ORAL route every 6 hours as needed; 36 tablet; Refills: 0, teodoro Product Selection Permitted Signatures: Dispatcher [employer] EDMS Sherman Dang MD MD cha Leal, Jahala RN RN jl7 Danisha Robledo RN RN cm10 Corrections: (The following items were deleted from the chart) 13:27 11:50 Ice pack ordered. teodoro jl7 13:37 11:50 Head C Spine MPR Wo Con+CT.RAD.BRZ ordered. EDMS EDMS 13:49 11:50 Wrist Left 3 View+RAD.RAD.BRZ ordered. EDMS EDMS
[2024-10-31 01:24] VITALS: BP 129/69; TEMP 98.1; O2SAT 94
== END 2024-10-28 14:33 | disposition home or self-care (01) ==
LOC: ER 10:54
DX: S00.83XA Contusion of other part of head, initial encounter (principal); S60.212A Contusion of left wrist, initial encounter; W18.30XA Fall on same level, unspecified, initial encounter
CPT/HCPCS: 70450; 72125; 99284

== ENCOUNTER 2025-01-12 09:43 | Emergency (ER) | payer OTHER ==
--- NOTE | 2025-01-12 11:03 | RAD REPORT ---
Exam:Knee Left 3 View HISTORY: Left knee pain FINDINGS: No fracture or dislocation seen Osteoporosis. Anterior soft tissue swelling. If the patient continues to have symptoms to suggest an occult fracture, ligamentous or meniscal inju ry then MRI would be recommended
--- NOTE | 2025-01-12 12:29 | RAD REPORT ---
EXAMINATION: CT HEAD WITHOUT CONTRAST CT CERVICAL SPINE WITHOUT CONTRAST CLINICAL INDICATION: Head and neck injury status post fall. Head and neck pain TECHNIQUE: Axial CT images from the skull base to the vertex without intravenous contrast. Axial CT i mages through the cervical spine were obtained without intravenous contrast. Sagittal and coronal reformatted images were created from the data set. Coronal and sagittal reformatted images were creat ed from the data set. One or more of the following dose reduction techniques were used: Automated exposure control, adjustment of the mA and/or kV according to patient size, and/or iterative reconstr uction. Unless otherwise specified, incidental findings do not require dedicated imaging follow-up. [id number]. Comparison: October 2024 FINDINGS: Due to technical issues the exam is being submitted to me now for interpretation. Left scalp hematoma. An intracranial bleed is not seen. Ventricles are normal in caliber. No significant hypodensity within the brain No extra-axial fluid collection. No fluid within the sinuses/mastoids No fracture or dislocation is seen involving the cervical spine. Mild groundglass opacities upper lobes lungs. IMPRESSION: No acute intracranial abnormality noted A cervical fracture is not seen. If the patient continues to have symptoms to suggest acute MINI SHIFTER/spinal pathology then MRI would be rec ommended
--- NOTE | 2025-01-12 12:30 | ER ---
Nurse's Notes [facility] Name: Virginia Saucedo Age: 74 yrs Sex: Female : 1950 Arrival Date: 01/12/2025 Time: 09:43 Bed 14 Private MD: Diagnosis: Closed head injury, scalp hematoma, scalp abrasion, left knee abrasion Presentation: 01/12 09:46 Chief complaint: EMS states: Fell at [employer], states, " I think my foot came out ph of my shoe." Reports landing on L knee and hitting head, takes aspirin, no LOC, abrasion and hematoma to back of head, c/o L knee pain. Coronavirus screen: Vaccine status: Patient reports receiving the 2nd dose of the covid vaccine. Ebola Screen: No symptoms or risks identified at this time. Initial Sepsis Screen: Does the patient meet any 2 criteria? No. Patient's initial sepsis screen is negative. Does the patient have a suspected source of infection? No. Patient's initial sepsis screen is negative. Risk Assessment: Do you want to hurt yourself or someone else? Patient reports no desire to harm self or others. Onset of symptoms was January 12, 2025. 09:46 Method Of Arrival: EMS: [facility] ph 09:46 Acuity: ANUSHA 3 ph 09:54 Care prior to arrival: None. Mechanism of Injury: Fall from standing position. Trauma ph event details: Injury occurred in the [facility], Injury occurred: in a public building. Injury occurred: January 12, 2025. Trauma Activation: Not Applicable Physician: ED Physician; Name: ; Notified At: ; Arrived At: Physician: General Surgeon; Name: ; Notified At: ; Arrived At: Physician: Radiology; Name: ; Notified At: ; Arrived At: Physician: Respiratory; Name: ; Notified At: ; Arrived At: Physician: Lab; Name: ; Notified At: ; Arrived At: Historical: - Allergies: 09:50 No Known Allergies; ph - PMHx: 09:50 Diabetes - NIDDM; GERD; High Cholesterol; Hypertension; joint pain; Lupus ph erythematosus; muscular dystrophy; Rheumatoid Arthritis; THYROID CANCER; - PSHx: 09:50 Cholecystectomy; Stented artery; Thyroidectomy; ph - Immunization history:: Adult Immunizations unknown. - Infectious Disease History:: Denies. - Immunization history: Last tetanus immunization: - up to date. - Social history:: Smoking status: Patient denies any tobacco usage or history of. Screenin:53 Abuse screen: Denies threats or abuse. Denies injuries from another. Tuberculosis ph screening: No symptoms or risk factors identified. 09:53 [facility] ED Fall Risk Assessment (Adult) History of falling in the last 3 months, ph including since admission No falls in past 3 months (0 pts) Confusion or Disorientation No (0 pts) Intoxicated or Sedated No (0 pts) Impaired Gait No (0 pts) Mobility Assist Device Used No (0 pt) Altered Elimination No (0 pt) Score/Fall Risk Level 0 - 2 = Low Risk Oriented to surroundings, Maintained a safe environment, Hourly rounding (assess needs \\T\\ fall precautionary measures) done. Nutritional screening: No deficits noted. Primary Survey: 09:52 NO uncontrolled hemorrhage observed. A: The client is awake and alert. The airway is ph patent. Breathing/Chest: Spontaneous respiratory effort, equal unlabored respirations, breath sounds clear bilaterally, regular pattern, symmetrical chest rise and fall. Circulation: No external hemorrhage present. Regular and strong central pulse, skin warm/dry/normal color. Disability Pupils are equal, round, reactive to light and accommodation. Exposure/Environment: There is no evidence of uncontrolled external bleeding. Obvious injury(ies) are noted at this time: abrasion to back of head A warming method has been applied: A warm blanket has been provided to the patient. 12:31 Reassessment Alertness and Airway: Awake and alert. The airway is patent. Breathing: ph Spontaneous respiratory effort, equal unlabored respirations, breath sounds clear bilaterally, regular pattern with symmetrical chest rise and fall. Circulation: No external hemorrhage noted. Regular and strong central pulse, skin warm/dry/normal color. Secondary Survey: 09:52 HEENT: Head Other abrasion and hematom to back of head. Musculoskeletal: Swelling ph present in dorsal aspect of proximal phalanx of left index finger Reports pain in left knee. Assessment: 09:51 General: Appears in no apparent distress. comfortable, well groomed, Behavior is calm, ph cooperative, appropriate for age. Pain: Complains of pain in left knee. Neuro: Level of Consciousness is awake, alert, obeys commands, Oriented to person, place, time, situation. Cardiovascular: Capillary refill < 3 seconds in bilateral fingers Patient's skin is warm and dry. Respiratory: Airway is patent Respiratory effort is even, unlabored. GI: No signs and/or symptoms were reported involving the gastrointestinal system. Derm: Skin is pink, warm \\T\\ dry. Musculoskeletal: Circulation, motion, and sensation intact. Range of motion: intact in all extremities. Injury Description: Abrasion sustained to scalp. 11:21 Reassessment: Patient appears in no apparent distress at this time. Patient and/or ph family updated on plan of care and expected duration. Pain level reassessed. Patient is alert, oriented x 3, equal unlabored respirations, skin warm/dry/pink. Vital Signs: 09:46 BP 148 / 78; Pulse 88; Resp 18; Temp 97.8; Pulse Ox 95% on R/A; Weight 77.11 kg; Height ph 4 ft. 11 in. ; 12:30 BP 146 / 88; Pulse 81; Resp 16; Temp 98.2; Pulse Ox 97% ; ph 09:46 Body Mass Index 34.34 (77.11 kg, 149.86 cm) ph [place] Coma Score: 09:53 Eye Response: spontaneous(4). Motor Response: obeys commands(6). Verbal Response: ph oriented(5). Total: 15. Trauma Score (Adult): 09:53 Eye Response: spontaneous(1); Verbal Response: oriented(1); Motor Response: obeys ph commands(2); Systolic BP: > 89 mm Hg(4); Respiratory Rate: 10 to 29 per min(4); [place] Score: 15; Trauma Score: 12 ED Course: 09:45 Patient arrived in ED. ph 09:46 Sherine Ware MD is Attending Physician. sp3 09:49 Triage completed. ph 09:50 Arm band placed on Patient placed in an exam room, on a stretcher. ph 09:54 Patient has correct armband on for positive identification. Bed in low position. Call ph light in reach. Side rails up X 1. 09:54 Patient maintains SpO2 saturation greater than 95% on room air. Thermoregulation: warm ph blanket given to patient. 09:55 Shona Buckner, RN is Primary Nurse. ph 10:[address] via stretcher. ph 10:14 CT Head C Spine In Process Unspecified. EDMS 10:37 Knee Left 3 View XRAY In Process Unspecified. EDMS 12:30 No provider procedures requiring assistance completed. ph 12:31 Provided Education on: POC. Verbalized understanding.. ph 12:31 Patient did not have IV access during this emergency room visit. ph Administered Medications: No medications were administered Medication: 09:54 VIS not applicable for this client. ph Outcome: 12:29 Discharge ordered by sp3 12:39 Discharged to home via wheelchair, with significant other, 12:39 Condition: stable 12:39 Discharge instructions given to patient, significant other, Instructed on discharge instructions, follow up and referral plans. Demonstrated understanding of instructions, follow-up care, 12:40 Patient left the ED. ph Signatures: Dispatcher [employer] Shona Miramontes, ESTHER RN Sherine Lin MD MD sp3
--- NOTE | 2025-01-12 12:30 | EDPHYS ---
Physician Documentation [facility] Name: Virginia Saucedo Age: 74 yrs Sex: Female : 1950 Arrival Date: 01/12/2025 Time: 09:43 Bed 14 Private MD: ED Physician Sherine Ware HPI: 01/12 09:51 This 74 yrs old Female presents to ER via EMS with complaints of Fall Injury. sp3 09:51 74-year-old female with history of muscular dystrophy, lupus, GERD, hyperlipidemia, sp3 diabetes, currently on Plavix now presents to the ED with mechanical fall with injury to the posterior occiput just prior to arrival. States she tripped on her shoe. There is no medical prodrome. She denies any significant neck pain, chest pain, shortness of breath, abdominal pain, vomiting, diarrhea, medical prodrome, other extremity pain other than mild pain on the left knee.. Historical: - Allergies: 09:50 No Known Allergies; ph - PMHx: 09:50 Diabetes - NIDDM; GERD; High Cholesterol; Hypertension; joint pain; Lupus ph erythematosus; muscular dystrophy; Rheumatoid Arthritis; THYROID CANCER; - PSHx: 09:50 Cholecystectomy; Stented artery; Thyroidectomy; ph - Immunization history:: Adult Immunizations unknown. - Infectious Disease History:: Denies. - Immunization history: Last tetanus immunization: - up to date. - Social history:: Smoking status: Patient denies any tobacco usage or history of. ROS: 09:53 Constitutional: Negative for fever, chills, and weight loss, Eyes: Negative for injury, sp3 pain, redness, and discharge, ENT: Negative for injury, pain, and discharge, Neck: Negative for injury, pain, and swelling, Cardiovascular: Negative for chest pain, palpitations, and edema, Respiratory: Negative for shortness of breath, cough, wheezing, and pleuritic chest pain, Abdomen/GI: Negative for abdominal pain, nausea, vomiting, diarrhea, and constipation, Back: Negative for injury and pain, Skin: Negative for injury, rash, and discoloration, Psych: Negative for depression, anxiety, suicide ideation, homicidal ideation, and hallucinations, Allergy/Immunology: Negative for hives, rash, and allergies, Endocrine: Negative for neck swelling, polydipsia, polyuria, polyphagia, and marked weight changes, Hematologic/Lymphatic: Negative for swollen nodes, abnormal bleeding, and unusual bruising, 09:53 All other systems are negative, Exam: 09:53 Constitutional: This is a well developed, well nourished patient who is awake, alert, sp3 and in no acute distress. Eyes: Pupils equal round and reactive to light, extra-ocular motions intact. Lids and lashes normal. Conjunctiva and sclera are non-icteric and not injected. Cornea within normal limits. Periorbital areas with no swelling, redness, or edema. ENT: Nares patent. No nasal discharge, no septal abnormalities noted. External auditory canals are clear. Oropharynx with no redness, swelling, or masses, exudates, or evidence of obstruction, uvula midline. Mucous membranes moist. Neck: Trachea midline, no thyromegaly or masses palpated, and no cervical lymphadenopathy. Supple, full range of motion without nuchal rigidity, or vertebral point tenderness. No Meningismus. Chest/axilla: Normal chest wall appearance and motion. Nontender with no deformity. No lesions are appreciated. Cardiovascular: Regular rate and rhythm with a normal S1 and S2. No gallops, murmurs, or rubs. Normal PMI, no JVD. No pulse deficits. Respiratory: Lungs have equal breath sounds bilaterally, clear to auscultation and percussion. No rales, rhonchi or wheezes noted. No increased work of breathing, no retractions or nasal flaring. Abdomen/GI: Soft, non-tender, with normal bowel sounds. No distension or tympany. No guarding or rebound. No evidence of tenderness throughout. Back: No spinal tenderness. No costovertebral tenderness. Full range of motion. Skin: Warm, dry with normal turgor. Normal color with no rashes, no lesions, and no evidence of cellulitis. Neuro: Awake and alert, GCS 15, oriented to person, place, time, and situation. Cranial nerves II-XII grossly intact. Motor strength 5/5 in all extremities. Sensory grossly intact. Cerebellar exam normal. Normal gait. Psych: Awake, alert, with orientation to person, place and time. Behavior, mood, and affect are within normal limits. 09:53 Head/face: Abrasion to the posterior occiput with minor bleeding. No laceration or repairable lesion noted.. 09:53 Musculoskeletal/extremity: Left knee pain with pain over the patella and generalized knee pain. No significant swelling noted. Distal neurovascular exam is normal. Overall neuro exam is normal.. Vital Signs: 09:46 BP 148 / 78; Pulse 88; Resp 18; Temp 97.8; Pulse Ox 95% on R/A; Weight 77.11 kg; Height ph 4 ft. 11 in. ; 12:30 BP 146 / 88; Pulse 81; Resp 16; Temp 98.2; Pulse Ox 97% ; ph 09:46 Body Mass Index 34.34 (77.11 kg, 149.86 cm) ph [place] Coma Score: 09:53 Eye Response: spontaneous(4). Motor Response: obeys commands(6). Verbal Response: ph oriented(5). Total: 15. Trauma Score (Adult): 09:53 Eye Response: spontaneous(1); Verbal Response: oriented(1); Motor Response: obeys ph commands(2); Systolic BP: > 89 mm Hg(4); Respiratory Rate: 10 to 29 per min(4); [place] Score: 15; Trauma Score: 12 MDM: 09:46 Medical Screening Exam initiated sp3 09:53 Data reviewed: vital signs, nurses notes, radiologic studies. ED course: 74-year-old sp3 female with PMH above who is currently on antiplatelet agents presents with mechanical fall with injuries to the head and left knee. Will CT head, C-spine and x-ray left knee. If workup negative we will safely discharge patient home. Wound care on the pad as needed.. 01/12 09:47 Order name: CT Head C Spine; Complete Time: 12:29 sp3 01/12 09:47 Order name: Knee Left 3 View XRAY; Complete Time: 11:35 sp3 Administered Medications: No medications were administered Disposition Summary: 01/12/25 12:29 Discharge Ordered Notes: Location: Home sp3 Condition: Stable sp3 Diagnosis - Closed head injury, scalp hematoma, scalp abrasion, left knee abrasion sp3 Followup: sp3 - With: Private Physician - When: Upon discharge from the Emergency Department - Reason: Continuance of care Discharge Instructions: - Discharge Summary Sheet sp3 - Fall Prevention in the Home, Adult sp3 Forms: - Medication Reconciliation Form sp3 - Antibiotic Education sp3 - Prescription Opioid Use sp3 - Patient Portal Instructions sp3 - Leadership Thank You Letter sp3 Signatures: Dispatcher Shona Perla RN RN Sherine Lin MD MD sp3
[2025-01-12 13:09] VITALS: BP 146/88; TEMP 98.2; O2SAT 97
== END 2025-01-12 12:40 | disposition home or self-care (01) ==
LOC: ER 09:43
DX: S00.01XA Abrasion of scalp, initial encounter (principal); S80.212A Abrasion, left knee, initial encounter; S00.03XA Contusion of scalp, initial encounter; W01.0XXA Fall on same level from slipping, tripping and stumbling without subsequent striking against object, initial encounter
CPT/HCPCS: 70450; 72125; 99284